=== PATIENT | male | born 1965 | race Caucasian/White ===

== ENCOUNTER → 2020-02-06 08:33 | Outpatient (REF) | payer OTHER, SELFPAY ==
--- NOTE | 2020-02-06 | NM_ITS ---
Lexiscan Myocardial perfusion study Indication: Chest pain, diabetes, hypertension, hyperlipidemia, assess for coronary disease and ischemia Technique: The patient was brought in for a Lexiscan perfusion study on 02/06/2020 and was injected 0.4 mg of Lexiscan intravenously. Within a minute of this injection 35 mCi of sestamibi was given intravenously. Images were obtained using the SPECT gamma camera interlaced with the gating device. Images were obtained in supine position. Resting perfusion study was performed on 02/07/2020. Patient was administered 35 mCi of sestamibi intravenously at rest. Images were then obtained in supine position. Total DLP 84mGy-cm. Images were processed with the software and compared side to side in short axis, horizontal long axis and vertical long axis views. Findings: Raw acquisition was reviewed. The stress perfusion study showed no significant perfusion abnormality. Both uncorrected as well as CT attenuation corrected images were reviewed. The gated study shows normal LV systolic function with calculated LVEF of 72%. LV cavity is normal in size. The gated study shows normal wall thickening and contraction of segments. Resting study shows no significant perfusion abnormality. Gating at rest reveals normal wall motion with ejection fraction at 65%. The findings are consistent with no definite reversible or fixed perfusion abnormality. Impression: 1. Myocardial perfusion imaging study shows normal myocardial perfusion. No evidence of any ischemia or infarction. 2. Gated LVEF is 72% during stress; 52% during rest. 3. Transient ischemic dilatation not present. EKG component of the test reported separately.
--- NOTE | 2020-02-06 08:01 | CA_ITS ---
Acquisition Time: 2020-02-06 08:50:48 Total Exercise Time: 00:02:00 Test Indications: Abnormal Treadmill Test Medications: ASA METOPROLOL OMEPRAZOLE LISINOPRIL ATORVASTATIN INSULIN KLONIPIN LEVOTHYROXINE Protocol: LEXISCAN Max HR: 101 BPM 61% of Pred: 165 BPM Max BP: 142/076 mmHG Max Work Load: 1.0 METS Pharmacological stress test using Lexiscan while sitting and kicking his feet. Tolerated well. Denies any anginal sx. EKG without anyy arrhythmias. Non-diagnostic for ischemia. Nuclear images to follow. Normotensive response to test. Test reviewed with Dr. Duncan Referred By: Mando Turpin Overread By: Jennifer Flores
== END ==
LOC: HO.CARD 08:33
PROVIDERS: PCP Internal Medicine; Visit Provider Internal Medicine
DX: R07.9 Chest pain, unspecified (principal); E11.9 Type 2 diabetes mellitus without complications; I10 Essential (primary) hypertension; E78.5 Hyperlipidemia, unspecified; K21.9 Gastro-esophageal reflux disease without esophagitis; E03.9 Hypothyroidism, unspecified; F41.9 Anxiety disorder, unspecified; E66.9 Obesity, unspecified
CPT/HCPCS: 78452; 93017; A9500; J0280; J2785

== ENCOUNTER → 2020-02-17 13:27 | Outpatient (BNVA) | payer OTHER, SELFPAY | PROVIDERS: PCP Internal Medicine; Referring Provider Internal Medicine; Visit Provider Physician Assistant Medical | DX: Z76.89 Persons encountering health services in other specified circumstances (principal) ==

== ENCOUNTER 2020-03-07 09:53 | Outpatient (REF) | payer OTHER, SELFPAY ==
--- NOTE | 2020-03-07 09:55 | CT_ITS ---
EXAMINATION: CT CHEST SCREENING CLINICAL INFORMATION: Smoking history. 38 pack year history. COMPARISON: Previous chest x-monty most recent January 2019 TECHNIQUE: Multidetector volumetric CT imaging of the chest is performed without contrast using low dose technique. Additional 2D coronal and sagittal reformatted images and axial 3D maximum intensity projection (MIP) images are generated on the CT workstation. This CT examination was performed using dose optimization techniques as appropriate, variously including the following: *Automated exposure control *Adjustment of mA and/or kV according to patient size (this includes techniques or standardized protocols for targeted exams where dose is matched to indication/reason for exam; i.e. extremities or head) *Use of iterative reconstruction technique DLP: 89 mGy-cm FINDINGS: LUNGS: There is a 3 mm right upper lobe nodule axial image 88 series 5. The lungs are otherwise clear. No endobronchial or endotracheal lesion is seen. MEDIASTINUM: The mediastinum is normal. PLEURA: There is no pleural effusion. No pleural mass or thickening. AXILLA: No lymphadenopathy. UPPER ABDOMEN: Unremarkable OSSEOUS STRUCTURES: There are degenerative changes of the spine. CT/CT lung screening IMPRESSION: 3 mm right upper lobe pulmonary nodule. ASSESSMENT: Lung-RADS category 2: Benign RECOMMENDATION: Annual low-dose chest CT follow-up recommended.
== END 2020-03-07 09:54 | disposition home or self-care (01) ==
LOC: HO.CT 09:53
PROVIDERS: Visit Provider Physician Assistant Medical
DX: Z12.2 Encounter for screening for malignant neoplasm of respiratory organs (principal); F17.210 Nicotine dependence, cigarettes, uncomplicated
CPT/HCPCS: 71250

== ENCOUNTER → 2020-03-15 14:56 | Outpatient (BNVA) | payer OTHER, SELFPAY | PROVIDERS: PCP Internal Medicine; Visit Provider Internal Medicine | DX: R06.02 Shortness of breath (principal); R06.00 Dyspnea, unspecified; E66.9 Obesity, unspecified; Z68.36 Body mass index [BMI] 36.0-36.9, adult; F17.210 Nicotine dependence, cigarettes, uncomplicated; F25.9 Schizoaffective disorder, unspecified; I10 Essential (primary) hypertension; E11.9 Type 2 diabetes mellitus without complications; Z79.4 Long term (current) use of insulin; E03.9 Hypothyroidism, unspecified; Z79.899 Other long term (current) drug therapy | CPT/HCPCS: 99202 ==

== ENCOUNTER 2020-03-19 10:09 | Outpatient (REF) | payer OTHER, SELFPAY ==
[2020-03-19 11:10] LABS: MANUAL DIFF FLAG NO
[2020-03-19 11:37] LABS: Basophils Absolute Auto 0.1 X10*3/uL (0.0-0.2); Basophils Percent Auto 0.9 % (0-2); Eosinophils Absolute Auto 0.1 X10*3/uL (0.0-0.4); Eosinophils Percent Auto 1.7 % (0-4); Hematocrit 40.7 % (42-52); Hemoglobin 14.9 g/dl (14.0-18.0); Imm Gran Abs Auto 0.03 X10*3/uL (0.00-0.03); Imm Gran Pct Auto 0.4 % (0.0-0.4); Lymphocytes Absolute Auto 1.8 X10*3/uL (1.2-4.9); Lymphocytes Percent Auto 25.3 % (20-40); Mean Corpuscular HGB Conc 36.6 g/dl (31.0-36.0); Mean Corpuscular Hemoglobin 33.9 pg (27.0-33.0); Mean Corpuscular Volume 92.7 fL (80-98); Mean Platelet Volume 10.7 fL (9.4-12.4); Monocytes Absolute Auto 0.7 X10*3/uL (0.1-1.2); Monocytes Percent Auto 9.6 % (2-11); Neutrophils Absolute Auto 4.3 X10*3/uL (2.0-8.3); Neutrophils Percent Auto 62.1 % (45-73); Platelet Count 134 X10*3/uL (160-400); Red Blood Count 4.39 X10*6/uL (4.60-5.80); Red Cell Distribution Width 12.4 % (11.0-16.0)
[2020-03-19 11:52] LABS: Glucose Urine UA NEG (NEG); Leukocyte Esterase Urine NEG (NEG); Nitrite Urine NEG (NEG); PH 7.5 (5.0-8.0); Urine Blood NEG (NEG); Urine Ketones NEG (NEG); Urine Protein NEG (NEG-TRACE)
[2020-03-19 11:54] LABS: Appearance Urine CLEAR; Color Urine YELLOW; UACC CULT NO
[2020-03-19 11:56] LABS: Alanine Aminotransferase 29 U/L (0-40); Albumin Level 4.3 g/dL (3.5-5.0); Alkaline Phosphatase 82 U/L (39-117); Anion Gap 12 (12-20); Aspartate Amino Transferase 24 U/L (5-37); Bilirubin Total 0.9 mg/dL (0.0-1.0); Blood Urea Nitrogen 9 mg/dL (9-16); Calcium 9.4 mg/dL (8.4-10.2); Carbon Dioxide 28 mmol/L (22-29); Chloride 97 mmol/L (96-108); Cholesterol 112 mg/dL; Estimated Glomerular Filt Rate > 60; Glucose Fasting 136 mg/dL (60-99); HDL Cholesterol 42 mg/dL; LDL Cholesterol Calculated 57 mg/dl; Sodium 132 mmol/L (135-145); Total Protein 6.7 g/dL (6.5-8.0); Triglycerides 66 mg/dL
[2020-03-19 12:06] LABS: Free T4 (Free Thyroxine) 1.09 ng/dL (0.71-1.85); Thyroid Stimulating Hormone 0.84 uIU/mL (0.32-4.0)
[2020-03-19 12:27] LABS: RBC Urine 0 /HPF (0); WBC Urine 0 /HPF (0-4)
[2020-03-19 12:42] LABS: Creatinine Urine 30.85 mg/dL; Microalbum/Creatinine Ratio Ur 22.6 ug/mg cr
== END 2020-03-19 10:10 | disposition home or self-care (01) ==
LOC: HO.LAB 10:09
PROVIDERS: Visit Provider Internal Medicine
DX: E11.9 Type 2 diabetes mellitus without complications (principal); I10 Essential (primary) hypertension; E78.5 Hyperlipidemia, unspecified; E03.9 Hypothyroidism, unspecified; E66.9 Obesity, unspecified; K59.00 Constipation, unspecified; K21.9 Gastro-esophageal reflux disease without esophagitis
CPT/HCPCS: 36415; 80053; 80061; 81001; 82043; 84439; 84443; 85025

== ENCOUNTER 2020-04-05 10:09 | Outpatient (REF) | payer OTHER, SELFPAY ==
--- NOTE | 2020-04-05 17:37 | PFT_ITS ---
INDICATION: Dyspnea. SPIROMETRY: The FEV1 to FVC of 88% with an FEV1 of 3.55 L which is 94% predicted, an FVC of 4.04 L, which is 82% predicted. No significant response to bronchodilators noted. Maximum voluntary ventilation 68% predicted. LUNG VOLUMES: Total lung capacity 81% predicted with an expiratory reserve volume of 31% predicted. DIFFUSION CAPACITY: DLCO 77% predicted. Flow volume loop appears to have some plateauing of the inspiratory phase. COMPARISONS: None. INTERPRETATION: No obstructive nor restrictive ventilatory defects identified. No significant response to bronchodilators noted. There is some mild decrease in maximum voluntary ventilation, which could be due to deconditioning. Lung volumes do demonstrate a low normal total lung capacity in addition to a significantly decreased expiratory reserve volume likely from an elevated BMI. The patient also has mild diffusion impairment, it does correct to normal when correcting for the alveolar volume. When we look at the flow volume loop, appears to have some plateauing of the inspiratory flow with some saw-tooth suggesting of increased although vocal cord dysfunction and/or a dynamic extrathoracic obstruction cannot be ruled out. Clinical correlation warranted. MD TAMIKO Malhotra/MODLouis / [id number]
== END 2020-04-05 10:10 | disposition home or self-care (01) ==
LOC: HO.RESP 10:09
PROVIDERS: PCP Internal Medicine; Visit Provider Internal Medicine
DX: R06.00 Dyspnea, unspecified (principal); F17.210 Nicotine dependence, cigarettes, uncomplicated
CPT/HCPCS: 94060; 94727; 94729

== ENCOUNTER 2020-04-13 11:08 | Outpatient (REF) | payer OTHER, SELFPAY ==
[2020-04-13 11:49] LABS: Glucose Urine UA NEG (NEG); Leukocyte Esterase Urine NEG (NEG); Nitrite Urine NEG (NEG); Specific Gravity - Urine <= 1.005 (1.005-1.025); Urine Blood NEG (NEG); Urine Ketones NEG (NEG); Urine Protein NEG (NEG-TRACE)
[2020-04-13 11:52] LABS: Appearance Urine CLEAR; Color Urine STRAW
[2020-04-13 12:24] LABS: Syphilis Screen Nonreactive (Nonreactive)
[2020-04-13 12:29] LABS: HBS Num1 0.41 mIU/mL (0-7.99); ~HepC Num1 0.04 S/CO (0.00-0.79); ~Hepatitis B Surface Antibody NONREACTIVE (Nonreactive); ~Hepatitis C Antibody Nonreactive (Nonreactive)
[2020-04-13 12:38] LABS: HBc Num1 0.02 S/CO (0.00-0.79); HBsAGNum1 0.43 S/CO (0.00-0.99); HIV AB/AG Nonreactive (Nonreactive); HIV Num 1 0.08 S/CO (0.00-0.99); Hepatitis B Core Antibody Nonreactive (Nonreactive); Hepatitis B Surface Antigen Negative (Negative)
[2020-04-17 18:21] LABS: Chlamydia Pneumoniae IgA <1:16 titer (<1:16); Chlamydia Pneumoniae IgG <1:64 titer (<1:64); Chlamydia Pneumoniae IgM <1:10 titer (<1:10); Chlamydia Psittaci IgA <1:16 titer (<1:16); Chlamydia Psittaci IgG <1:64 titer (<1:64); Chlamydia Psittaci IgM <1:10 titer (<1:10); Chlamydia Trachomatis IgA <1:16 titer (<1:16); Chlamydia Trachomatis IgG <1:64 titer (<1:64); Chlamydia Trachomatis IgM <1:10 titer (<1:10)
== END 2020-04-13 11:09 | disposition home or self-care (01) ==
LOC: HO.LAB 11:08
PROVIDERS: PCP Internal Medicine; Visit Provider Physician Assistant
DX: Z11.3 Encounter for screening for infections with a predominantly sexual mode of transmission (principal)
CPT/HCPCS: 81003; 86631; 86632; 86704; 86706; 86780; 86803; 87340; 87389

== ENCOUNTER → 2020-04-16 11:54 | Outpatient (BNVA) | payer OTHER, SELFPAY | PROVIDERS: PCP Internal Medicine; Visit Provider Internal Medicine | DX: R06.00 Dyspnea, unspecified (principal); R91.1 Solitary pulmonary nodule; G47.33 Obstructive sleep apnea (adult) (pediatric); E66.9 Obesity, unspecified; Z68.34 Body mass index [BMI] 34.0-34.9, adult; F17.200 Nicotine dependence, unspecified, uncomplicated; Z71.3 Dietary counseling and surveillance; Z71.6 Tobacco abuse counseling | CPT/HCPCS: 99212 ==

== ENCOUNTER 2020-06-26 09:44 | Outpatient (REF) | payer OTHER, SELFPAY ==
[2020-06-26 10:47] LABS: Glucose Urine UA NEG (NEG); Imm Gran Abs Auto 0.03 X10*3/uL (0.00-0.03); Imm Gran Pct Auto 0.5 % (0.0-0.4); Leukocyte Esterase Urine NEG (NEG); Nitrite Urine NEG (NEG); Urine Blood NEG (NEG); Urine Ketones NEG (NEG); Urine Protein NEG (NEG-TRACE)
[2020-06-26 10:49] LABS: Basophils Absolute Auto 0.1 X10*3/uL (0.0-0.2); Eosinophils Absolute Auto 0.1 X10*3/uL (0.0-0.4); Hematocrit 40.5 % (42-52); Hemoglobin 14.6 g/dl (14.0-18.0); Lymphocytes Absolute Auto 1.7 X10*3/uL (1.2-4.9); Lymphocytes Percent Auto 27.2 % (20-40); Mean Corpuscular Hemoglobin 33.9 pg (27.0-33.0); Mean Platelet Volume 10.2 fL (9.4-12.4); Monocytes Absolute Auto 0.7 X10*3/uL (0.1-1.2); Monocytes Percent Auto 11.7 % (2-11); Neutrophils Absolute Auto 3.6 X10*3/uL (2.0-8.3); Neutrophils Percent Auto 57.6 % (45-73); Red Blood Count 4.31 X10*6/uL (4.60-5.80); Red Cell Distribution Width 12.6 % (11.0-16.0); White Blood Count 6.2 X10*3/uL (4.8-10.8)
[2020-06-26 10:50] LABS: Appearance Urine HAZY; Color Urine YELLOW
[2020-06-26 10:55] LABS: Estimated Average Glucose 128 mg/dL; Hemoglobin A1c % 6.1 %
[2020-06-26 10:58] LABS: MANUAL DIFF FLAG NO; Platelet Count 139 X10*3/uL (160-400)
[2020-06-26 11:13] LABS: Alanine Aminotransferase 25 U/L (0-40); Albumin Level 4.4 g/dL (3.5-5.0); Alkaline Phosphatase 82 U/L (39-117); Anion Gap 13 (12-20); Aspartate Amino Transferase 22 U/L (5-37); Bilirubin Total 0.9 mg/dL (0.0-1.0); Blood Urea Nitrogen 11 mg/dL (9-16); Calcium 9.8 mg/dL (8.4-10.2); Carbon Dioxide 28 mmol/L (22-29); Chloride 104 mmol/L (96-108); Cholesterol 119 mg/dL; Estimated Glomerular Filt Rate > 60; Glucose Fasting 86 mg/dL (60-99); HDL Cholesterol 39 mg/dL; LDL Cholesterol Calculated 62 mg/dl; Potassium 4.6 mmol/L (3.3-5.1); Sodium 140 mmol/L (135-145); Total Protein 7.1 g/dL (6.5-8.0); Triglycerides 91 mg/dL
[2020-06-26 11:25] LABS: Free T4 (Free Thyroxine) 1.14 ng/dL (0.71-1.85); Thyroid Stimulating Hormone 1.25 uIU/mL (0.32-4.0)
[2020-06-26 11:53] LABS: Creatinine Urine 188.49 mg/dL; Microalbum/Creatinine Ratio Ur 30.7 ug/mg cr
== END 2020-06-26 09:45 | disposition home or self-care (01) ==
LOC: HO.LAB 09:44
PROVIDERS: PCP Internal Medicine; Visit Provider Internal Medicine
DX: I10 Essential (primary) hypertension (principal); K21.9 Gastro-esophageal reflux disease without esophagitis; F17.200 Nicotine dependence, unspecified, uncomplicated; E03.9 Hypothyroidism, unspecified; E11.9 Type 2 diabetes mellitus without complications; E78.00 Pure hypercholesterolemia, unspecified; E66.9 Obesity, unspecified
CPT/HCPCS: 36415; 80053; 80061; 81003; 82043; 83036; 84439; 84443; 85025

== ENCOUNTER → 2020-08-08 11:16 | Outpatient (BNVA) | payer OTHER, SELFPAY | PROVIDERS: PCP Internal Medicine; Visit Provider Nurse Practitioner | DX: Z01.818 Encounter for other preprocedural examination (principal); R06.00 Dyspnea, unspecified; F25.9 Schizoaffective disorder, unspecified; G47.33 Obstructive sleep apnea (adult) (pediatric); E66.01 Morbid (severe) obesity due to excess calories; F17.200 Nicotine dependence, unspecified, uncomplicated; Z83.71 Family history of colonic polyps; Z71.3 Dietary counseling and surveillance; Z71.6 Tobacco abuse counseling | CPT/HCPCS: Q3014 ==

== ENCOUNTER 2020-09-17 10:40 | Outpatient (REF) | payer OTHER, SELFPAY ==
[2020-09-17 12:05] LABS: MANUAL DIFF FLAG NO
[2020-09-17 12:08] LABS: Basophils Absolute Auto 0.1 X10*3/uL (0.0-0.2); Basophils Percent Auto 0.6 % (0-2); Eosinophils Absolute Auto 0.1 X10*3/uL (0.0-0.4); Eosinophils Percent Auto 1.5 % (0-4); Hematocrit 39.8 % (42-52); Hemoglobin 14.5 g/dl (14.0-18.0); Imm Gran Abs Auto 0.03 X10*3/uL (0.00-0.03); Imm Gran Pct Auto 0.4 % (0.0-0.4); Lymphocytes Absolute Auto 1.5 X10*3/uL (1.2-4.9); Lymphocytes Percent Auto 17.8 % (20-40); Mean Corpuscular HGB Conc 36.4 g/dl (31.0-36.0); Mean Corpuscular Hemoglobin 33.7 pg (27.0-33.0); Mean Corpuscular Volume 92.6 fL (80-98); Mean Platelet Volume 10.1 fL (9.4-12.4); Monocytes Absolute Auto 0.9 X10*3/uL (0.1-1.2); Monocytes Percent Auto 10.4 % (2-11); Neutrophils Absolute Auto 5.8 X10*3/uL (2.0-8.3); Neutrophils Percent Auto 69.3 % (45-73); Platelet Count 128 X10*3/uL (160-400); Red Cell Distribution Width 12.7 % (11.0-16.0); White Blood Count 8.4 X10*3/uL (4.8-10.8)
[2020-09-17 12:33] LABS: Alanine Aminotransferase 30 U/L (0-40); Albumin Level 4.2 g/dL (3.5-5.0); Alkaline Phosphatase 92 U/L (39-117); Anion Gap 11 (12-20); Aspartate Amino Transferase 25 U/L (5-37); Bilirubin Total 0.9 mg/dL (0.0-1.0); Blood Urea Nitrogen 10 mg/dL (9-16); Calcium 9.1 mg/dL (8.4-10.2); Carbon Dioxide 27 mmol/L (22-29); Chloride 101 mmol/L (96-108); Cholesterol 104 mg/dL; Estimated Glomerular Filt Rate > 60; Glucose Fasting 98 mg/dL (60-99); HDL Cholesterol 33 mg/dL; LDL Cholesterol Calculated 56 mg/dl; Potassium 4.9 mmol/L (3.3-5.1); Sodium 134 mmol/L (135-145); Total Protein 6.7 g/dL (6.5-8.0); Triglycerides 76 mg/dL
[2020-09-17 12:44] LABS: Glucose Urine UA NEG (NEG); Leukocyte Esterase Urine NEG (NEG); Nitrite Urine NEG (NEG); Specific Gravity - Urine 1.025 (1.005-1.025); Urine Blood NEG (NEG); Urine Ketones NEG (NEG); Urine Protein NEG (NEG-TRACE)
[2020-09-17 12:46] LABS: Appearance Urine CLEAR; Color Urine YELLOW
[2020-09-17 12:53] LABS: Creatinine Urine 207.81 mg/dL; Microalbum/Creatinine Ratio Ur 16.8 ug/mg cr
[2020-09-17 12:56] LABS: Estimated Average Glucose 114 mg/dL; Hemoglobin A1c % 5.6 %
[2020-09-17 12:58] LABS: Free T4 (Free Thyroxine) 1.01 ng/dL (0.71-1.85); Thyroid Stimulating Hormone 0.59 uIU/mL (0.32-4.0)
== END 2020-09-17 10:41 | disposition home or self-care (01) ==
LOC: HO.LAB 10:40
PROVIDERS: PCP Internal Medicine; Visit Provider Internal Medicine
DX: I10 Essential (primary) hypertension (principal); K21.9 Gastro-esophageal reflux disease without esophagitis; K59.00 Constipation, unspecified; E78.00 Pure hypercholesterolemia, unspecified; E11.9 Type 2 diabetes mellitus without complications; Z79.4 Long term (current) use of insulin; E03.9 Hypothyroidism, unspecified; E66.9 Obesity, unspecified; F17.200 Nicotine dependence, unspecified, uncomplicated
CPT/HCPCS: 36415; 80053; 80061; 81003; 82043; 83036; 84439; 84443; 85025

== ENCOUNTER 2020-10-12 07:46 | Day surgery (SDC) | payer OTHER, SELFPAY ==
[2020-10-08 13:39] VITALS: BMI 35.7
--- NOTE | 2020-10-10 13:51 | P.CONAN_ITS ---
Documented by User: Merlyn Rao 10/10/20 13:56 HPI - Anesthesia Eval Consult details Narrative: 55yo M for Colonoscopy PMFSH Active Problems Active Problems: All Active Problems (Updated 10/08/20 @ 13:37 by Monique Chinchilla) Screening for STD (sexually transmitted disease) (Acute) Colon cancer screening (Acute) Family history of polyps in the colon (Acute) Morbid obesity (Acute) Lung nodule (Acute) Smoker (Acute) Schizophrenia (Acute) Nocturnal enuresis (Acute) Anxiety (Acute) Midline low back pain (Acute) Acquired hypothyroidism (Acute) GERD without esophagitis (Acute) Constipation (Acute) Pure hypercholesterolemia (Acute) Benign essential hypertension (Acute) Diabetes mellitus (Acute) Obstructive sleep apnea (Acute) Dyspnea (Acute) Schizoaffective disorder (Acute) Insulin dependent diabetes mellitus (Acute) Hypothyroidism (Acute) Hypertension, essential (Acute) Hyperlipidemia (Acute) Nicotine dependence, cigarettes, uncomplicated (Acute) Past Medical History Medical History Acquired hypothyroidism Anxiety Benign essential hypertension Constipation Diabetes mellitus Dyspnea GERD without esophagitis Hyperlipidemia Hypertension, essential Hypothyroidism Insulin dependent diabetes mellitus Lung nodule Midline low back pain Nicotine dependence, cigarettes, uncomplicated Nocturnal enuresis Obesity (BMI 30-39.9) Obesity (BMI 35.0-39.9 without comorbidity) Obstructive sleep apnea On beta evaristo at home Pure hypercholesterolemia Schizoaffective disorder Schizophrenia Screening for STD (sexually transmitted disease) Smoker Family History Family History Father CVD (cardiovascular disease) Mother CVD (cardiovascular disease) Diabetes Sister Colon polyps Surgical History Surgical History History of left inguinal hernia repair Hx of facial fracture repair Social History Social History Alcohol intake: never Patient Tobacco Use Status: Current everyday Tobacco user Tobacco use type: Cigarette Cigarette Packs Per Day: 1 Cigarettes Per Day: 20.0 Years Smoked: 38 Smoked in Last 30 Days: Yes Second Hand Smoke Exposure: Yes Advance Directives: No Advance Directives Information Provided: Yes Recently lost weight without trying: No Eating poorly because of decreased appetite: No Nutrition Risks: No Nutritional Risk Meds Allergies Allergy/AdvReac Type Severity Reaction Status Date / Time clozapine [From Clozaril] Allergy Mild ringing in Verified 10/08/20 13:16 ears, pain, leukopenia trifluoperazine Allergy Tongue Verified 10/08/20 13:17 [From Stelazine] Swelling Home Medications Medication Instructions Recorded Confirmed Last Taken Type acetaminophen 500 mg tablet 500 mg PO Q6H PRN 03/15/20 10/08/20 Unknown History alcohol swabs 1 pad TOPICAL DAILY 03/15/20 09/21/20 Unknown History aspirin 81 mg chewable tablet 1 tab PO DAILY 03/15/20 10/08/20 Unknown History atorvastatin 10 mg tablet 10 mg PO DAILY 03/15/20 10/08/20 Unknown History blood sugar diagnostic #10 ea 03/15/20 09/21/20 Unknown History cholecalciferol (vitamin D3) 25 25 mcg PO DAILY 03/15/20 10/08/20 Unknown History mcg (1,000 unit) capsule clonazepam 0.5 mg tablet 0.5 mg PO BID PRN 03/15/20 10/12/20 10/12/20 07:00 History lactulose 10 gram/15 mL oral 3 ml PO DIRECTED 03/15/20 10/08/20 Unknown History solution lancets 28 gauge #100 ea 03/15/20 09/21/20 Unknown History lisinopril 5 mg tablet 5 mg PO DAILY 03/15/20 10/08/20 Unknown History metoprolol tartrate 50 mg tablet 50 mg PO BID 03/15/20 10/08/20 10/12/20 07:00 History omeprazole 20 mg capsule,delayed 20 mg PO DAILY 03/15/20 10/08/20 Unknown History release pen needle, diabetic 31 gauge x #1200 ea 03/15/20 09/21/20 Unknown History /16 perphenazine 2 mg tablet 2 mg PO BID 03/15/20 10/08/20 10/12/20 07:00 History perphenazine 8 mg tablet 8 mg PO BID tab 03/21/20 10/08/20 Unknown History chlorhexidine gluconate 0.12 % 15 ml PO BID ml 06/22/20 10/08/20 Unknown History mouthwash insulin glargine 100 unit/mL (3 55 unit SUBCUT ml 08/08/20 09/21/20 Unknown History mL) subcutaneous pen trazodone 50 mg tablet 75 mg PO Q OTHER DAY PRN tab 08/08/20 10/08/20 Unknown History insulin aspart U-100 [Novolog unit SUBCUT TIDWMEAL 10/08/20 Unknown History Flexpen U-100 Insulin] semaglutide [Ozempic] 0.5 mg SUBCUT QWEEK 10/08/20 10/08/20 Unknown History Exam Exam Date and Time: October 10, 2020 1351 Height,Weight and Vital Signs: Height 5 ft 9 in Weight 109.769 kg Narrative Narrative: Nuc Stress 02/2020 Impression: 1. Myocardial perfusion imaging study shows normal myocardial perfusion. No evidence of any ischemia or infarction. 2. Gated LVEF is 72% during stress; 52% during rest. 3. Transient ischemic dilatation not present. EKG component nondiagnostic for ischemia Assessment and Plan Assessment Anesthesia Assessment: Chart Reviewed Documented by User: Dalton Cummings 10/12/20 08:28 [facility] Past Medical History Medical History Acquired hypothyroidism Anxiety Benign essential hypertension Constipation Diabetes mellitus Dyspnea GERD without esophagitis Hyperlipidemia Hypertension, essential Hypothyroidism Insulin dependent diabetes mellitus Lung nodule Midline low back pain Nicotine dependence, cigarettes, uncomplicated Nocturnal enuresis Obesity (BMI 30-39.9) Obesity (BMI 35.0-39.9 without comorbidity) Obstructive sleep apnea On beta evaristo at home Pure hypercholesterolemia Schizoaffective disorder Schizophrenia Screening for STD (sexually transmitted disease) Smoker Family History Family History Father CVD (cardiovascular disease) Mother CVD (cardiovascular disease) Diabetes Sister Colon polyps Surgical History Surgical History History of left inguinal hernia repair Hx of facial fracture repair Social History Social History Alcohol intake: never Patient Tobacco Use Status: Current everyday Tobacco user Tobacco use type: Cigarette Cigarette Packs Per Day: 1 Cigarettes Per Day: 20.0 Years Smoked: 38 Smoked in Last 30 Days: Yes Second Hand Smoke Exposure: Yes Advance Directives: No Advance Directives Information Provided: Yes Recently lost weight without trying: No Eating poorly because of decreased appetite: No Nutrition Risks: No Nutritional Risk Meds Allergies Allergy/AdvReac Type Severity Reaction Status Date / Time clozapine [From Clozaril] Allergy Mild ringing in Verified 10/08/20 13:16 ears, pain, leukopenia trifluoperazine Allergy Tongue Verified 10/08/20 13:17 [From Stelazine] Swelling Home Medications Medication Instructions Recorded Confirmed Last Taken Type acetaminophen 500 mg tablet 500 mg PO Q6H PRN 03/15/20 10/08/20 Unknown History alcohol swabs 1 pad TOPICAL DAILY 03/15/20 09/21/20 Unknown History aspirin 81 mg chewable tablet 1 tab PO DAILY 03/15/20 10/08/20 Unknown History atorvastatin 10 mg tablet 10 mg PO DAILY 03/15/20 10/08/20 Unknown History blood sugar diagnostic #10 ea 03/15/20 09/21/20 Unknown History cholecalciferol (vitamin D3) 25 25 mcg PO DAILY 03/15/20 10/08/20 Unknown Histo ry mcg (1,000 unit) capsule clonazepam 0.5 mg tablet 0.5 mg PO BID PRN 03/15/20 10/12/20 10/12/20 07:00 History lactulose 10 gram/15 mL oral 3 ml PO DIRECTED 03/15/20 10/08/20 Unknown His tory solution lancets 28 gauge #100 ea 03/15/20 09/21/20 Unknown History lisinopril 5 mg tablet 5 mg PO DAILY 03/15/20 10/08/20 Unknown History metoprolol tartrate 50 mg tablet 50 mg PO BID 03/15/20 10/08/20 10/12/20 07:00 History omeprazole 20 mg capsule,delayed 20 mg PO DAILY 03/15/20 10/08/20 Unknown History release pen needle, diabetic 31 gauge x #1200 ea 03/15/20 09/21/20 Unknown History 5/16 perphenazine 2 mg tablet 2 mg PO BID 03/15/20 10/08/20 10/12/20 07:00 History perphenazine 8 mg tablet 8 mg PO BID tab 03/21/20 10/08/20 Unknown History chlorhexidine gluconate 0.12 % 15 ml PO BID ml 06/22/20 10/08/20 Unknown History mouthwash insulin glargine 100 unit/mL (3 55 unit SUBCUT ml 08/08/20 09/21/20 Unknown History mL) subcutaneous pen trazodone 50 mg tablet 75 mg PO Q OTHER DAY PRN tab 08/08/20 10/08/20 Unknown History insulin aspart U-100 [Novolog unit SUBCUT TIDWMEAL 10/08/20 Unknown History Flexpen U-100 Insulin] semaglutide [Ozempic] 0.5 mg SUBCUT QWEEK 10/08/20 10/08/20 Unknown History Exam Airway Mallampati Class: III TM Dist: >3cm Neck ROM: Full Heart: [id number] Lungs: cta b/l Assessment and Plan Assessment Anesthesia Assessment: Anesthesia Plan Discussed, PAT Visit and Chart Reviewed Final Anesthetic Review NPO: Yes ASA Class: III Final Preanesthetic Review: No Changes in Pt Med Stat, Meds/Allgs Chart Revie thu, Consent Obtained/Reviewed and Anes Risks/Benef Reviewed Patient Risk: Intermediate Procedure Risk: Low Assessment/Block/Sedation in SS: Assess/Block/Sedation-SS Anesthetic Plan Anesthetic Plan: MAC: and Agree w/ Assess. and Plan Disposition: Standard PACU
[2020-10-12 08:07] VITALS: BP 119/75; PULSE 77; RESP 16; TEMP 36.4; O2SAT 98
--- NOTE | 2020-10-12 08:09 | P.OP_ITS ---
Operative Note Operative Note Date of Service: 10/12/20 Narrative: Pre-op diagnosis: Colon cancer screening Post-op diagnosis: other (colon polyps, diverticulosis) Procedure: COLONOSCOPY TILL CECUM WITH SNARE POLYPECTOMY Consent: Indications for the procedure and potential complications of bleeding, perforation, reaction to medications and missed diagnosis were discussed with the patient and informed consent was obtained. Instrument: Olympus PCF H 190 L variable stiffness pediatric colonoscope Monitoring: Vital signs and clinical assessment, intermittent blood pressure monitoring, continuous EKG monitoring, Pulse oximetry and Carbon Dioxide monitoring were done throughout the procedure. Colon withdrawl time was 17 minutes. Procedure: The patient was placed in the left lateral decubitis position and pre-procedure medications were administered. After a digital rectal examination of the ano-rectum, the video colonoscope was inserted into the rectum and advanced through the colon to the cecum. The colonoscope was slowly withdrawn in a retrograde panoramic fashion and the colon mucosa was carefully examined including a retroflexed view of the rectum. Findings and interventions are described below. Procedure Difficulty: Without difficulty Findings: Terminal Ileum: Not evaluated Cecum: Mild diffuse melanosis coli throughout the colon - random biopsies were obtained Ascending Colon: Mild diffuse melanosis coli throughout the colon - random biopsies were obtained Transverse Colon: Mild diffuse melanosis coli throughout the colon - random biopsies were obtained Descending Colon: Mild diffuse melanosis coli throughout the colon - random biopsies were obtained Sigmoid Colon: A 15 mm sessile polyp removed with a hot snare. A 7-8 mm sessile polyp removed with a cold snare. Moderate diverticulosis Rectum: Normal Ano-rectum: Normal Colon preparation: Excellent Impression and Post Procedure Diagnosis: Colonoscopy Findings: Two small to medium sized polyps removed. Mild diffuse melanosis coli throughout the colon - random biopsies were obtained Moderate diverticulosis seen in the sigmoid colon Plan: Await pathology results Patient has an appointment on 10/25/20 in the [facility] with Manasa Baker NP. Repeat Colonoscopy interval based on path results - in 3 years if polyps are adenomatous and 10 years if polyps are hyperplastic. Above findings were reviewed with the patient and colon polyps and diverticulosis handouts were given in the discharge area Surgeon: Waldemar Kincaid MD Anesthesia: MAC (Dr Cummings) Was an Welding Machine Setter used for this Procedure?: No Estimated blood loss (mL): 0 Pathology: other (A. RANDOM COLON BX'S R/O MELANOSIS COLI B. SIGMOID COLON POLYPS) Condition: stable Disposition: PACU
--- NOTE | 2020-10-12 08:09 | MHC.SHP ---
Pre-Procedural Eval Section A The patient is an INPATIENT: No The History & Physical has been completed within 30 days and I have reviewed it.: No Section B Chief Complaint: screening Details of Present Illness: Colon cancer screening Relevant Family History (Specify if Yes): Yes Relevant Social History: Tobacco Use Present Medications: see Short Stay Collaborative assessment Medical History: Significant History (Acquired hypothyroidism Anxiety Benign essential hypertension Constipation Diabetes mellitus Dyspnea GERD without esophagitis Hyperlipidemia Hypertension, essential Hypothyroidism Insulin dependent diabetes mellitus Lung nodule Midline low back pain Nicotine dependence, cigarettes, uncomplicated Noc) History of Previous Operations: Relevant previous surgery/procedure and date(s) (Inguinal hernia repair) Allergies: Allergies Allergy/AdvReac Type Severity Reaction Status Date / Time clozapine [From Clozaril] Allergy Mild ringing in Verified 10/08/20 13:16 ears, pain, leukopenia trifluoperazine Allergy Tongue Verified 10/08/20 13:17 [From Stelazine] Swelling Review of Systems Sugical H&P ROS: Negative: Constitution, Cardiovascular, Respiratory and Gastrointestinal Exam Surgical H&P Exam: Normal: Heart, Normal: Lungs, Normal: Extremities and Normal: Abdomen Plan Diagnosis/Plan: Unchanged I have reviewed the history and physical and performed a pertinent physical examination on my patient. No changes have occurred unless specified.
[2020-10-12] MEDS: Lactated Ringers 1,000 ML 100 ML IVCONT (08:13)
[2020-10-12 08:16] LABS: Glucose, Whole Blood 121 mg/dL (60-115)
[2020-10-12 09:12] VITALS: BP 100/66; PULSE 76; RESP 16; TEMP 36.6; O2SAT 98
[2020-10-12 09:27] VITALS: BP 106/70; PULSE 82; RESP 20; O2SAT 97
== END 2020-10-12 10:22 | disposition home or self-care (01) ==
PROVIDERS: PCP Internal Medicine; Visit Provider Internal Medicine Gastroenterology
PROC: 0DJD8ZZ Inspection of Lower Intestinal Tract, Via Natural or Artificial Opening Endoscopic (ICD-10-PCS; CPT 45378; principal; 2020-10-12 08:30)
DX: Z12.11 Encounter for screening for malignant neoplasm of colon (principal); D12.5 Benign neoplasm of sigmoid colon; K63.89 Other specified diseases of intestine; K57.30 Diverticulosis of large intestine without perforation or abscess without bleeding; K59.00 Constipation, unspecified; K21.9 Gastro-esophageal reflux disease without esophagitis; I10 Essential (primary) hypertension; E11.9 Type 2 diabetes mellitus without complications; Z79.4 Long term (current) use of insulin; R91.1 Solitary pulmonary nodule; F25.9 Schizoaffective disorder, unspecified; G47.33 Obstructive sleep apnea (adult) (pediatric); F17.210 Nicotine dependence, cigarettes, uncomplicated; Z79.899 Other long term (current) drug therapy; Z88.8 Allergy status to other drugs, medicaments and biological substances
CPT/HCPCS: 45385; 82947; 88305

== ENCOUNTER → 2020-10-25 13:22 | Outpatient (BNVA) | payer OTHER, SELFPAY | PROVIDERS: PCP Internal Medicine; Visit Provider Nurse Practitioner | DX: D12.6 Benign neoplasm of colon, unspecified (principal); R06.00 Dyspnea, unspecified; G47.33 Obstructive sleep apnea (adult) (pediatric); F25.9 Schizoaffective disorder, unspecified; F17.210 Nicotine dependence, cigarettes, uncomplicated; Z83.71 Family history of colonic polyps | CPT/HCPCS: 99212 ==

== ENCOUNTER 2021-03-08 14:15 | Emergency (ER) | payer OTHER, SELFPAY ==
--- NOTE | ~2021-03-08 | CT_ITS ---
EXAMINATION: CT ABDOMEN AND PELVIS WITH CONTRAST CLINICAL INFORMATION: Lower quadrant abdominal pain. COMPARISON: None TECHNIQUE: Multidetector volumetric images were obtained from the superior aspect of the liver through the pubic symphysis following administration 85 mL of Omnipaque 350 intravenous contrast. Sagittal and coronal reformatted images were obtained on the technologist's workstation. Oral contrast: No This CT examination was performed using dose optimization techniques as appropriate, variously including the following: *Automated exposure control *Adjustment of mA and/or kV according to patient size (this includes techniques or standardized protocols for targeted exams where dose is matched to indication/reason for exam; i.e. extremities or head) *Use of iterative reconstruction technique DLP: 758 mGy-cm FINDINGS: LUNG BASES: The visualized lung bases are unremarkable. LIVER, GALLBLADDER, AND BILIARY TREE: The liver is normal in size, shape, and attenuation. No focal hepatic lesion or biliary ductal dilatation is present. The gallbladder is unremarkable with no evidence of radiopaque gallstones, gallbladder wall thickening, or obvious pericholecystic inflammatory changes. PANCREAS: Unremarkable. SPLEEN: Unremarkable. ADRENAL GLANDS: Unremarkable. KIDNEYS AND URETERS: The kidneys are normal in size, shape, and attenuation. No hydronephrosis, hydroureter, or calculi seen. No perinephric stranding. There is an exophytic lesion at the upper pole of the right kidney which measures 1.6 cm with likely soft tissue attenuation, with concern for possible enhancement. BLADDER: Unremarkable. GASTROINTESTINAL TRACT: The stomach is unremarkable. Normal caliber small bowel. No obstruction. Normal appendix. Scattered colonic diverticulosis without diverticulitis. No wall thickening or inflammation. No free air or free fluid. ABDOMINAL WALL: No significant hernia is appreciated. LYMPH NODES: Normal. VASCULAR: Normal caliber aorta with mild atherosclerotic calcification. PELVIC VISCERA: The prostate and seminal vesicles are unremarkable. OSSEOUS STRUCTURES: No acute or suspicious osseous abnormality. Degenerative changes noted throughout the spine. Degenerative changes in both hips. CT/CT abdomen pelvis w con IMPRESSION: 1. No acute findings in the abdomen or pelvis. Normal appendix. 2. Exophytic upper pole lesion of the right kidney, concerning for a solid lesion. Recommend further evaluation with renal protocol MRI.
[2021-03-08 14:35] VITALS: BP 123/71; PULSE 56
[2021-03-08 14:36] VITALS: BP 124/87; PULSE 96; RESP 16; TEMP 37.8; O2SAT 93; BMI 40.8
--- NOTE | 2021-03-08 14:41 | PC.NURSE ---
[facility] CALLED FOR REDRAW
[2021-03-08 15:26] LABS: Hemoglobin 14.1 g/dl (14.0-18.0); Imm Gran Abs Auto 0.02 X10*3/uL (0.00-0.03); Imm Gran Pct Auto 0.3 % (0.0-0.4); Mean Corpuscular Volume 93.2 fL (80.0-98.0); Mean Platelet Volume 9.9 fL (9.4-12.4); PLT CLUMP 1; Red Cell Distribution Width 12.9 % (11.0-16.0); SCAN SMEAR FLAG 1
--- NOTE | 2021-03-08 15:27 | ED_ITS ---
HPI - Abdominal Pain General Chief Complaint: Abdominal Pain Stated Complaint: flank pain Time Seen by Provider: 03/08/21 14:31 Source: patient and EMS Mode of arrival: EMS History of Present Illness HPI narrative: 55-year-old male with past medical history of hypothyroid, anxiety, constipation, diabetes, GERD, obesity, JUANITA, schizophrenia, schizoaffective, hyperlipidemia, presenting to the ED complaining of right lower quadrant abdominal pain since last night with associated nausea. Reports pain is constant radiating to ribs. Also reports chronic constipation and urinary hesitancy. Denies vomiting, diarrhea, fever, chills, hematuria, dysuria MD elicited complaint: abdominal pain Related Data Home Medications Medication Instructions Recorded Confirmed alcohol swabs 1 pad TOPICAL DAILY 03/15/20 02/27/21 blood sugar diagnostic #10 ea 03/15/20 02/27/21 lancets 28 gauge #100 ea 03/15/20 02/27/21 pen needle, diabetic 31 gauge x #1200 ea 03/15/20 02/27/21/16 perphenazine 2 mg tablet 2 mg PO BID 03/15/20 02/27/21 chlorhexidine gluconate 0.12 % 15 ml PO BID ml 06/22/20 02/27/21 mouthwash clonazepam 0.5 mg tablet 0.5 mg PO BID 10/25/20 02/27/21 insulin glargine 100 unit/mL (3 48 unit SUBCUT ml 10/25/20 02/27/21 mL) subcutaneous pen perphenazine 4 mg tablet 4 mg PO BID 10/25/20 02/27/21 perphenazine 8 mg tablet 8 mg PO TID tab 10/25/20 02/27/21 semaglutide (Ozempic) 0.5 mg SUBCUT QWEEK 10/25/20 02/27/21 trazodone 50 mg tablet 100 mg PO Q OTHER DAY PRN tab 10/25/20 02/27/21 Previous Rx's Medication Instructions Recorded multivitamin 1 tab PO DAILY #30 tab 08/15/20 bismuth subsalicylate 262 mg 2 tab PO .COMPLEX #240 tab 09/04/20 chewable tablet (Pepto-Bismol) levothyroxine 50 mcg tablet 50 mcg PO QAM #30 tab 10/29/20 metoprolol tartrate 50 mg tablet 50 mg PO BID #180 tab 11/24/20 cholecalciferol (vitamin D3) 25 25 mcg PO DAILY #90 cap 12/11/20 mcg (1,000 unit) capsule famotidine 20 mg tablet 40 mg PO BID #120 tab 12/11/20 magnesium oxide 400 mg (241.3 mg 400 mg PO DAILY #30 tab 12/11/20 magnesium) tablet omeprazole 20 mg capsule,delayed 20 mg PO DAILY #90 cap 12/11/20 release desmopressin 0.1 mg tablet 0.2 mg PO BEDTIME 30 Days #60 tab 02/12/21 aspirin 81 mg chewable tablet 1 tab PO QAM #30 tab 02/20/21 atorvastatin 10 mg tablet 10 mg PO DAILY #90 tab 02/27/21 ibuprofen 600 mg tablet 600 mg PO TID PRN #90 tab 02/27/21 sulfamethoxazole 800 1 tab PO BID 10 Days #20 tab 02/27/21 mg-trimethoprim 160 mg tablet (Bactrim DS) lisinopril 5 mg tablet 5 mg PO DAILY #90 tab 03/04/21 sennosides 8.6 mg tablet (senna) 17.2 mg PO DAILY #180 tab 03/04/21 Allergies Allergy/AdvReac Type Severity Reaction Status Date / Time clozapine [From Clozaril] Allergy Mild ringing in Verified 02/27/21 11:23 ears, pain, leukopenia trifluoperazine Allergy Tongue Verified 02/27/21 11:23 [From Stelazine] Swelling Review of Systems Review of Systems Constitutional: No Fever, No Chills, No Fatigue, No Malaise ENT/Mouth: No Ear Pain, No sore throat, No Rhinorrhea, No Swallowing Difficulty Eyes: No Eye Pain, No Swelling, No Redness Cardiovascular: No Chest Pain, No SOB, No Palpitations Respiratory: No Cough, No Dyspnea Gastrointestinal: + Nausea, No Vomiting, No Diarrhea, No Constipation, +Abdominal pain Genitourinary: No Dysuria, No Urinary Frequency, No Hematuria, No Urgency, No F lank Pain Musculoskeletal: No joint pain, No Myalgias, No Joint Swelling Skin: No Skin Lesions, No rash Neuro: No Weakness, No Numbness, No Headache Yes all other systems are reviewed and are negative Physical Exam Vital Signs: Vital Signs: Last Vital Signs Temp 100.1 F 03/08/21 14:36 Pulse 96 03/08/21 14:36 Resp 16 03/08/21 14:36 BP 124/87 03/08/21 14:36 Pulse Ox 93 03/08/21 14:36 Body Mass Index 40.8 Const: General: cooperative and healthy appearing Orientation/ consciousness: patient oriented x3 Limitations: no limitations HENMT: Head: Yes normal to inspection Ears: hearing grossly normal bilaterally General nose exam: Normal external nose present Face and sinus: Yes normal facial exam Eyes: General: appearance normal, both eyes and all related structures EOM: EOMs intact bilaterally Neck: Neck: Yes normal visual inspection and Yes no meningeal signs Resp: Effort & Inspection: normal respiratory effort and no respiratory distress Cardio: Rate: regular rate GI: Inspection: Yes normal to inspection Palpation (GI): Soft to palpation, Tenderness to palpation present (GI) in the RLQ, no guarding and not rigid : General: Yes no CVA tenderness Back/Spine/Pelvis: Back: no CVA tenderness Skin: Rashes: no rashes Wounds: no wounds Neuro: General: patient oriented x3 and no meningeal signs Gait exam (Neuro): Normal gait present Extrem: General: Yes normal to inspection Course Course Course Narrative: -1645--no leukocytosis. H&H stable. Labs otherwise unremarkable CT abdomen pelvis w con IMPRESSION:? 1. No acute findings in the abdomen or pelvis. Normal appendix. 2. Exophytic upper pole lesion of the right kidney, concerning for a solid lesion. Recommend further evaluation with renal protocol MRI.? >> results discussed with patient including Worrisome signs and symptoms and strict return precautions And needed follow-up with PCP for further testing, he verbalized understanding feel safe for discharge home at this time -UA negative MDM - Abdominal Pain MDM Narrative Medical decision making narrative: 55-year-old male with past medical history of hypothyroid, anxiety, constipation, diabetes, GERD, obesity, JUANITA, schizophrenia, schizoaffective, hyperlipidemia, presenting to the ED complaining of right lower quadrant abdominal pain since last night with associated nausea. On exam vital signs stable, NAD, nontoxic, abdomen soft and RLQ TTP, no rebound or guarding, no CVAT. Concern for appendicitis vs ? Renal stone vs diverticulitis. Rule out UTI. Low concern for pyelo. Plan: Labs, UA, CT AP, IVF, symptomatic treatment, re-evaluate Medical Records Attestation: I reviewed the patient's medical records. Lab Data Attestation: I reviewed the patient's lab results. Result diagrams: 03/08/21 15:09 03/08/21 15:09 Labs: Lab Results 03/08/21 03/08/21 03/08/21 Range/Units 15: 15:09 17:32 WBC 6.2 (4.8-10.8) X10*3/uL RBC 4.11 L (4.60-5.80) X10*6/uL Hgb 14.1 (14.0-18.0) g/dl Hct 38.3 L (42.0-52.0) % MCV 93.2 (80.0-98.0) fL MCH 34.3 H (27.0-33.0) pg MCHC 36.8 H (31.0-36.0) g/dl RDW 12.9 (11.0-16.0) % Plt Count 115 L (160-400) X10*3/uL MPV 9.9 (9.4-12.4) fL Immature Gran % (Auto) 0.3 (0.0-0.4) % Neut % (Auto) 66.9 (45-73) % Lymph % (Auto) 18.6 L (20-40) % [place] % (Auto) 12.8 H (2-11) % Eos % (Auto) 0.8 (0-4) % Baso % (Auto) 0.6 (0-2) % Lymph # (Auto) 1.2 (1.2-4.9) X10*3/uL [place] # (Auto) 0.8 (0.1-1.2) X10*3/uL Eos # (Auto) 0.1 (0.0-0.4) X10*3/uL Baso # (Auto) 0.0 (0.0-0.2) X10*3/uL Abs Immat Gran (auto) 0.02 (0.00-0.03) X10*3/uL Absolute Neuts (auto) 4.1 (2.0-8.3) x10*3/uL Absolute Nucleated RBC 0.000 (0.0-0.012) X10*3/uL Nucleated RBC % (auto) 0.0 (0.0-0.2) /100WBC Sodium 136 (135-145) mmol/L Potassium 5.0 (3.3-5.1) mmol/L Chloride 104 (96-108) mmol/L Carbon Dioxide 24 (22-29) mmol/L Anion Gap 13 (12-20) BUN 15 (9-16) mg/dL Creatinine 1.01 (0.5-1.4) mg/dL Estim Creat Clear Calc 110.3 Estimated GFR > 60 Random Glucose 184 H (60-115) mg/dL Calcium 10.1 D (8.4-10.2) mg/dL Magnesium 1.6 (1.6-2.6) mg/dL Total Bilirubin 0.7 (0.0-1.0) mg/dL Direct Bilirubin 0.3 (0.0-0.5) mg/dL AST 22 (5-37) U/L ALT 35 (0-40) U/L Alkaline Phosphatase 112 D (39-117) U/L Total Protein 6.9 (6.5-8.0) g/dL Albumin 4.4 (3.5-5.0) g/dL Lipase 50 (8-78) U/L Urine Color YELLOW Urine Appearance CLEAR Urine pH 5.5 (5.0-8.0) Ur Specific [place] 1.020 (1.005-1.025) Urine Protein NEG (NEG-TRACE) MG/DL Urine Glucose (UA) 100 H (NEG) MG/DL Urine Ketones NEG (NEG) MG/DL Urine Blood NEG (NEG) Urine Nitrite NEG (NEG) Ur Leukocyte Esterase NEG (NEG) Discharge Plan Discharge Clinical Impression: Lesion of right [place] kidney Abdominal pain Qualifiers: Abdominal location: right lower quadrant Qualified Code(s): R10.31 - Right lower quadrant pain Patient Disposition: Home, Self-Care Instructions: Abdominal Pain (ED) Additional Instructions: Your blood work is reassuring today Your CT scan does not have any acute findings, does show lesion on your right kidney, it is recommended that you follow-up with her primary care doctor and have an MRI for further evaluation Patient hydrated at home If your symptoms persist or worsen, pain becomes unbearable, constant worsening nausea/vomiting, develops fever bleed return to the ED Prescriptions: No Action multivitamin Tablet 1 tab PO DAILY Qty: 30 RF: 12 bismuth subsalicylate [Pepto-Bismol] 262 mg tablet,chewable 2 tab PO .COMPLEX Qty: 240 RF: 0 levothyroxine 50 mcg tablet 50 mcg PO QAM Qty: 30 RF: 3 metoprolol tartrate 50 mg tablet 50 mg PO BID Qty: 180 RF: 0 cholecalciferol (vitamin D3) 25 mcg (1,000 unit) capsule 25 mcg PO DAILY Qty: 90 RF: 3 famotidine 20 mg tablet 40 mg PO BID Qty: 120 RF: 2 magnesium oxide 400 mg (241.3 mg magnesium) tablet 400 mg PO DAILY Qty: 30 RF: 3 omeprazole 20 mg capsule,delayed release(DR/EC) 20 mg PO DAILY Qty: 90 RF: 3 desmopressin 0.1 mg tablet 0.2 mg PO BEDTIME 30 Days Qty: 60 RF: 6 aspirin 81 mg tablet,chewable 1 tab PO QAM Qty: 30 RF: 0 atorvastatin 10 mg tablet 10 mg PO DAILY Qty: 90 RF: 0 ibuprofen 600 mg tablet 600 mg PO TID PRN (Reason: for pain) Qty: 90 RF: 0 lisinopril 5 mg tablet 5 mg PO DAILY Qty: 90 RF: 0 sennosides [senna] 8.6 mg tablet 17.2 mg PO DAILY Qty: 180 RF: 0 chlorhexidine gluconate 0.12 % mouthwash 15 ml PO BID RF: 0 sulfamethoxazole-trimethoprim [Bactrim DS] 800-160 mg tablet 1 tab PO BID 10 Days Qty: 20 RF: 0 perphenazine 2 mg tablet 2 mg PO BID RF: 0 (DME) pen needle, diabetic 31 gauge x 5/16 needle See Rx Instructions ea .ROUTE .MEDSUPPLY Qty: 1200 RF: 0 (DME) blood sugar diagnostic Strip See Rx Instructions ea Not Applicable .MEDSUPPLY Qty: 10 RF: 0 alcohol swabs Pads, Medicated 1 pad topical DAILY RF: 0 (DME) lancets 28 gauge misc See Rx Instructions ea topical .MEDSUPPLY Qty: 100 RF: 0 insulin glargine 100 unit/mL (3 mL) insulin pen 48 unit subcut RF: 0 clonazepam 0.5 mg tablet 0.5 mg PO BID RF: 0 perphenazine 8 mg tablet 8 mg PO TID RF: 0 trazodone 50 mg tablet 100 mg PO Q OTHER DAY PRN (Reason: Sleep) RF: 0 Ozempic 0.25 mg or 0.5 mg(2 mg/1.5 mL) pen injector 0.5 mg subcut QWEEK RF: 0 perphenazine 4 mg tablet 4 mg PO BID RF: 0 Referrals: Mando Turpin MD [Primary Care Provider] - 2 days PMF Past Medical History Attestation statement: The following information was validated with the patient. Medical History Acquired hypothyroidism Anxiety Axillary abscess Benign essential hypertension Constipation Diabetes mellitus Dyspnea GERD without esophagitis Hyperlipidemia Hypertension, essential Hypothyroidism Insulin dependent diabetes mellitus Lung nodule Midline low back pain Nicotine dependence, cigarettes, uncomplicated Nocturnal enuresis Obesity (BMI 30-39.9) Obesity (BMI 30-39.9) Obesity (BMI 35.0-39.9 without comorbidity) Obstructive sleep apnea On beta evaristo at home Pure hypercholesterolemia Schizoaffective disorder Schizophrenia Screening for STD (sexually transmitted disease) Smoker Surgical History H/O colonoscopy History of left inguinal hernia repair Hx of facial fracture repair Family History Family History Father CVD (cardiovascular disease) Mother CVD (cardiovascular disease) Diabetes Sister Colon polyps Social History Social History Housing: Assisted Living Facility Housing Other:: senior living Alcohol intake: never Patient Tobacco Use Status: Current everyday Tobacco user Tobacco use type: Cigar Cigarettes Per Day: 4 Years Smoked: 38 Second Hand Smoke Exposure: Yes Advance Directives: No Advance Directives Information Provided: No service: No Current occupational status: disabled
[2021-03-08 15:28] LABS: Basophils Percent Auto 0.6 % (0-2); Eosinophils Absolute Auto 0.1 X10*3/uL (0.0-0.4); Eosinophils Percent Auto 0.8 % (0-4); Hematocrit 38.3 % (42.0-52.0); Lymphocytes Absolute Auto 1.2 X10*3/uL (1.2-4.9); Lymphocytes Percent Auto 18.6 % (20-40); Mean Corpuscular HGB Conc 36.8 g/dl (31.0-36.0); Mean Corpuscular Hemoglobin 34.3 pg (27.0-33.0); Monocytes Absolute Auto 0.8 X10*3/uL (0.1-1.2); Monocytes Percent Auto 12.8 % (2-11); Neutrophils Absolute Auto 4.1 x10*3/uL (2.0-8.3); Neutrophils Percent Auto 66.9 % (45-73); Platelet Count 115 X10*3/uL (160-400); Red Blood Count 4.11 X10*6/uL (4.60-5.80); White Blood Count 6.2 X10*3/uL (4.8-10.8)
[2021-03-08 15:29] LABS: MANUAL DIFF FLAG NO
[2021-03-08 15:41] LABS: Alanine Aminotransferase 35 U/L (0-40); Albumin Level 4.4 g/dL (3.5-5.0); Alkaline Phosphatase 112 U/L (39-117); Anion Gap 13 (12-20); Aspartate Amino Transferase 22 U/L (5-37); Bilirubin Direct 0.3 mg/dL (0.0-0.5); Bilirubin Total 0.7 mg/dL (0.0-1.0); Blood Urea Nitrogen 15 mg/dL (9-16); Calcium 10.1 mg/dL (8.4-10.2); Carbon Dioxide 24 mmol/L (22-29); Chloride 104 mmol/L (96-108); Creatinine Clr Calc Pharmacy 110.3; Estimated Glomerular Filt Rate > 60; Glucose Random 184 mg/dL (60-115); Lipase 50 U/L (8-78); Magnesium 1.6 mg/dL (1.6-2.6); Sodium 136 mmol/L (135-145); Total Protein 6.9 g/dL (6.5-8.0)
[2021-03-08] MEDS: ondansetron HCL 4 MG/2 ML VIAL IVPUSH (15:43)
[2021-03-08] MEDS: 0.9 % Sodium Chloride 1,000 ML 999 ML IVCONT (15:43)
[2021-03-08] MEDS: Ketorolac Tromethamine 15 MG/ML VIAL IVPUSH (15:43)
[2021-03-08] MEDS: iohexoL 350 MG/ML 100 ML INFUS..BTL IV (16:06)
[2021-03-08] MEDS: diphenhydrAMINE HCL 50 MG/ML VIAL 25 MG IVPUSH (16:39)
[2021-03-08] MEDS: Acetaminophen 325 MG TABLET 650 MG PO (17:29)
[2021-03-08 17:38] LABS: Appearance Urine CLEAR; Color Urine YELLOW; Glucose Urine UA 100 MG/DL (NEG); Leukocyte Esterase Urine NEG (NEG); Nitrite Urine NEG (NEG); PH 5.5 (5.0-8.0); Urine Blood NEG (NEG); Urine Ketones NEG (NEG); Urine Protein NEG (NEG-TRACE)
[2021-03-08 18:51] VITALS: BP 116/74; PULSE 91; RESP 18; TEMP 37.5; O2SAT 97
== END 2021-03-08 19:21 | disposition home or self-care (01) ==
PROVIDERS: Physician Assistant; Emergency Provider Emergency Medicine; PCP Internal Medicine
DX: R10.31 Right lower quadrant pain (principal); R93.41 Abnormal radiologic findings on diagnostic imaging of renal pelvis, ureter, or bladder; N28.9 Disorder of kidney and ureter, unspecified; I10 Essential (primary) hypertension; E11.9 Type 2 diabetes mellitus without complications; E78.5 Hyperlipidemia, unspecified; Z79.4 Long term (current) use of insulin
CPT/HCPCS: 36415; 74177; 80048; 80076; 81003; 83690; 83735; 85025; 96361; 96374; 96375; 99284; J1200; J1885; J2405; Q9967

== ENCOUNTER 2021-04-02 17:15 | Outpatient (REF) | payer OTHER, SELFPAY ==
--- NOTE | ~2021-04-02 | MR_ITS ---
EXAMINATION: MR ABDOMEN WITHOUT AND WITH CONTRAST CLINICAL INFORMATION: History of abdominal pain and exophytic right upper pole renal lesion detected on CT imaging. COMPARISON: Abdomen CT from 03/08/2021. TECHNIQUE: MR abdomen was performed without and with use of 10 mL intravenous Gadavist. Postcontrast images are performed in multiphase dynamic sequences. FINDINGS: LUNG BASES: Normal. No pulmonary consolidation or pleural effusion at either lung base. LIVER: Liver has normal size and contour. There is mild reduction of liver parenchymal signal on [id number] compared to in-phase images, consistent with mild steatosis. No liver mass. GALLBLADDER AND BILIARY TREE: Gallbladder has normal wall thickness. No evidence of cholelithiasis or pericholecystic fluid. No dilated bile ducts. PANCREAS: Normal. No edema, pancreatic ductal dilatation or mass. SPLEEN: Normal. ADRENAL GLANDS: Normal. KIDNEYS: Kidneys are normal in size. 1.7 cm mass within cortex of the posterior right upper pole is heterogeneous, but predominantly intermediate in signal on T2-weighted images. The mass is hypoenhancing on the arterial phase postcontrast images. It enhances moderately and heterogeneously on the venous phase images. This is consistent with a solid neoplasm. No evidence of macroscopic fat or hemorrhage within the lesion. 0.9 cm simple cortical cyst in the posterolateral interpolar region of the left kidney. Renal imaging follow-up is not recommended for simple cysts. The visualized proximal ureters are unremarkable. No hydroureteronephrosis. BOWEL AND PERITONEUM: Stomach is unremarkable. No dilated loops of bowel. No bowel wall thickening or mesenteric fat stranding. There are diverticula of the visualized descending colon without evidence of diverticulitis. No ascites. VASCULATURE: Abdominal aorta is normal in caliber and its branches are widely patent. Inferior vena cava and renal veins are normal. LYMPH NODES: No pathologic sized lymph nodes in the abdomen. SKELETAL: No suspicious bone lesions. MR/MR abdomen wo/w con IMPRESSION: * There is a solid, 1.7 cm contrast enhancing mass at the upper pole of the right kidney, consistent with renal cell carcinoma. No abdominal lymphadenopathy. * Mild hepatic steatosis.
== END 2021-04-02 17:16 | disposition home or self-care (01) ==
LOC: HO.MRI 17:15
PROVIDERS: PCP Internal Medicine; Visit Provider Internal Medicine
DX: N28.89 Other specified disorders of kidney and ureter (principal)
CPT/HCPCS: 74183; A9585

== ENCOUNTER → 2021-04-18 09:33 | Outpatient (BNVA) | payer OTHER, SELFPAY | PROVIDERS: PCP Internal Medicine; Visit Provider Urology | DX: C64.1 Malignant neoplasm of right kidney, except renal pelvis (principal) | CPT/HCPCS: 99202 ==

== ENCOUNTER 2021-05-22 20:20 | Emergency (ER) | payer OTHER, SELFPAY ==
--- NOTE | 2021-05-22 | ECG_ITS ---
Test Reason : CHEST PAIN Blood Pressure : / mmHG Vent. Rate : 084 BPM Atrial Rate : 084 BPM P-R Int : 268 ms QRS Dur : 078 ms QT Int : 364 ms P-R-T Axes : 054 029 040 degrees QTc Int : 430 ms Sinus rhythm with 1st degree A-V block Otherwise normal ECG When compared with ECG of 29-JAN-2019 14:09, No significant change was found Referred By: Shawn Joe Electronically Signed By:Fredo Lares
--- NOTE | ~2021-05-22 | XR_ITS ---
EXAMINATION: PORTABLE CHEST 1 VIEW CLINICAL INFORMATION: cp . COMPARISON: 01/21/2019. TECHNIQUE: Portable frontal view of the chest was obtained. FINDINGS: The lungs are mildly hypoexpanded. No focal infiltrate, effusion, edema, or pneumothorax. Cardiac and mediastinal silhouettes are within normal limits for technique. No acute bony abnormality seen. XR/XR chest 1V IMPRESSION: No evidence of acute disease.
[2021-05-22 20:31] VITALS: BP 111/69; PULSE 84; RESP 18; TEMP 36.9; O2SAT 96; BMI 31.5
--- NOTE | 2021-05-22 20:36 | ED_ITS ---
HPI - Chest Pain General Chief Complaint: Chest Pain Stated Complaint: chest pain 3xdays Time Seen by Provider: 05/22/21 20:36 Source: patient Mode of arrival: EMS Limitations: no limitations History of Present Illness HPI narrative: Patient's history of renal cell carcinoma, hypertension, diabetes , bipolar disorder, schizophrenia no known coronary disease noticed pain in the left side of the chest for last 3 days of unknown no significant increased on exertion no shortness of breath no cough pain is localized to left precordial area no syncope Related Data Home Medications Medication Instructions Recorded Confirmed alcohol swabs 1 pad TOPICAL DAILY 03/15/20 04/10/21 blood sugar diagnostic #10 ea 03/15/20 04/10/21 lancets 28 gauge #100 ea 03/15/20 04/10/21 perphenazine 2 mg tablet 2 mg PO BID 03/15/20 04/10/21 chlorhexidine gluconate 0.12 % 15 ml PO BID ml 06/22/20 04/10/21 mouthwash clonazepam 0.5 mg tablet 0.5 mg PO BID 10/25/20 04/10/21 insulin glargine 100 unit/mL (3 48 unit SUBCUT ml 10/25/20 04/10/21 mL) subcutaneous pen perphenazine 4 mg tablet 4 mg PO BID 10/25/20 04/10/21 perphenazine 8 mg tablet 8 mg PO TID tab 10/25/20 04/10/21 semaglutide (Ozempic) 0.5 mg SUBCUT QWEEK 10/25/20 04/10/21 trazodone 50 mg tablet 100 mg PO Q OTHER DAY PRN tab 10/25/20 04/10/21 Previous Rx's Medication Instructions Recorded multivitamin 1 tab PO DAILY #30 tab 08/15/20 bismuth subsalicylate 262 mg 2 tab PO .COMPLEX #240 tab 09/04/20 chewable tablet (Pepto-Bismol) cholecalciferol (vitamin D3) 25 25 mcg PO DAILY #90 cap 12/11/20 mcg (1,000 unit) capsule omeprazole 20 mg capsule,delayed 20 mg PO DAILY #90 cap 12/11/20 release desmopressin 0.1 mg tablet 0.2 mg PO BEDTIME 30 Days #60 tab 02/12/21 aspirin 81 mg chewable tablet 1 tab PO QAM #30 tab 02/20/21 atorvastatin 10 mg tablet 10 mg PO DAILY #90 tab 02/27/21 lisinopril 5 mg tablet 5 mg PO DAILY #90 tab 03/04/21 sennosides 8.6 mg tablet (senna) 17.2 mg PO DAILY #180 tab 03/04/21 levothyroxine 50 mcg tablet 50 mcg PO QAM #30 tab 03/12/21 metoprolol tartrate 50 mg tablet 50 mg PO BID #180 tab 03/12/21 pen needle, diabetic 31 gauge x #1200 ea 03/12/2109/16 dextromethorphan 5 mg-guaifenesin 20 ml PO Q4-6H PRN #237 ml 04/05/21 50 mg/5 mL oral liquid (Robitussin Cough-Chest Congestion DM) famotidine 20 mg tablet 40 mg PO BID #120 tab 04/15/21 magnesium oxide 400 mg (241.3 mg 400 mg PO DAILY #30 tab 04/15/21 magnesium) tablet ibuprofen 600 mg tablet 600 mg PO TID PRN #90 tab 04/25/21 lactulose 10 gram/15 mL oral 15 ml PO BEDTIME PRN #237 ml 05/15/21 solution Allergies Allergy/AdvReac Type Severity Reaction Status Date / Time clozapine [From Clozaril] Allergy Mild ringing in Verified 04/18/21 09:54 ears, pain, leukopenia trifluoperazine Allergy Tongue Verified 04/18/21 09:54 [From Stelazine] Swelling Review of Systems Review of Systems: Yes all other systems are reviewed and are negative PMFSH Past Medical History Medical History Acquired hypothyroidism Anxiety Axillary abscess Benign essential hypertension Constipation Diabetes mellitus Dyspnea GERD without esophagitis Hyperlipidemia Hypertension, essential Hypothyroidism Insulin dependent diabetes mellitus Lung nodule Midline low back pain Nicotine dependence, cigarettes, uncomplicated Nocturnal enuresis Obesity (BMI 30-39.9) Obesity (BMI 30-39.9) Obesity (BMI 35.0-39.9 without comorbidity) Obstructive sleep apnea On beta evaristo at home Pure hypercholesterolemia Schizoaffective disorder Schizophrenia Screening for STD (sexually transmitted disease) Smoker Surgical History H/O colonoscopy History of left inguinal hernia repair Hx of facial fracture repair Family History Family History Father CVD (cardiovascular disease) Mother CVD (cardiovascular disease) Diabetes Sister Colon polyps Social History Social History Housing: Assisted Living Facility Housing Other:: retirement Alcohol intake: never Patient Tobacco Use Status: Current everyday Tobacco user Tobacco use type: Cigar Cigarettes Per Day: 6 Years Smoked: 38 Second Hand Smoke Exposure: Yes Advance Directives: No Advance Directives Information Provided: Yes service: No Current occupational status: disabled Physical Exam Vital Signs: Vital Signs: Last Vital Signs Temp 97.8 F 05/22/21 21:45 Pulse 79 05/22/21 21:45 Resp 18 05/22/21 21:45 BP 95/57 L 05/22/21 21:45 Pulse Ox 96 05/22/21 21:45 BMI result Body Mass Index 31.5 Appearance: Alert. Oriented X3. No acute distress. Eyes: No pallor or icterus ENT: Pharynx normal. Oral Mucosa moist Neck: Normal inspection. Neck supple. CVS: Normal heart rate and rhythm. Pulses normal. Respiratory: No respiratory distress. Equal air entry bilateral, no wheezing/rales/rhonchi Abdomen: Soft and nontender. Bowel sounds are present, no mass palpable, no CVA tenderness Skin: Skin warm and dry. Normal skin color. Normal skin turgor. Extremities: No lower extremity edema. No calf tenderness Neuro: Oriented X 3. No motor deficit. No sensory deficit.No cerebellar signs , cranial nerves II-XII intact MDM - Chest Pain MDM Narrative Medical decision making narrative: Patient' with atypical pain EKG without any acute ischemic changes high sensitive troponin negative discharge patient home Lab Data Attestation: I reviewed the patient's lab results. Result diagrams: 05/22/21 20:44 05/22/21 20:44 Labs: Lab Results 05/22/21 05/22/21 05/22/21 Range/Units 20:44 20:44 20:44 WBC 6.9 (4.8-10.8) X10*3/uL RBC 4.03 L (4.60-5.80) X10*6/uL Hgb 13.7 L (14.0-18.0) g/dl Hct 37.7 L (42.0-52.0) % MCV 93.5 (80.0-98.0) fL MCH 34.0 H (27.0-33.0) pg MCHC 36.3 H (31.0-36.0) g/dl RDW 12.6 (11.0-16.0) % Plt Count 108 L (160-400) X10*3/uL MPV 9.7 (9.4-12.4) fL Immature Gran % (Auto) 0.3 (0.0-0.4) % Neut % (Auto) 53.0 (45-73) % Lymph % (Auto) 34.7 (20-40) % Vigo % (Auto) 9.9 (2-11) % Eos % (Auto) 1.5 (0-4) % Baso % (Auto) 0.6 (0-2) % Lymph # (Auto) 2.4 (1.2-4.9) X10*3/uL Vigo # (Auto) 0.7 (0.1-1.2) X10*3/uL Eos # (Auto) 0.1 (0.0-0.4) X10*3/uL Baso # (Auto) 0.0 (0.0-0.2) X10*3/uL Abs Immat Gran (auto) 0.02 (0.00-0.03) X10*3/uL Absolute Neuts (auto) 3.7 (2.0-8.3) x10*3/uL Absolute Nucleated RBC 0.000 (0.0-0.012) X10*3/uL Nucleated RBC % (auto) 0.0 (0.0-0.2) /100WBC Sodium 139 (135-145) mmol/L Potassium 4.2 (3.3-5.1) mmol/L Chloride 108 (96-108) mmol/L Carbon Dioxide 22 (22-29) mmol/L Anion Gap 13 (12-20) BUN 21 H (9-16) mg/dL Creatinine 1.06 (0.5-1.4) mg/dL Estim Creat Clear Calc 92.1 Estimated GFR > 60 Random Glucose 202 H (60-115) mg/dL Calcium 9.2 D (8.4-10.2) mg/dL Troponin I High Sens < 3.5 (<3.5-35.0) ng/L COVID-19 ([facility]) (Negative) COVID-19 Clin Com 05/22/21 Range/Units 20:44 WBC (4.8-10.8) X10*3/uL RBC (4.60-5.80) X10*6/uL Hgb (14.0-18.0) g/dl Hct (42.0-52.0) % MCV (80.0-98.0) fL MCH (27.0-33.0) pg MCHC (31.0-36.0) g/dl RDW (11.0-16.0) % Plt Count (160-400) X10*3/uL MPV (9.4-12.4) fL Immature Gran % (Auto) (0.0-0.4) % Neut % (Auto) (45-73) % Lymph % (Auto) (20-40) % Vigo % (Auto) (2-11) % Eos % (Auto) (0-4) % Baso % (Auto) (0-2) % Lymph # (Auto) (1.2-4.9) X10*3/uL Vigo # (Auto) (0.1-1.2) X10*3/uL Eos # (Auto) (0.0-0.4) X10*3/uL Baso # (Auto) (0.0-0.2) X10*3/uL Abs Immat Gran (auto) (0.00-0.03) X10*3/uL Absolute Neuts (auto) (2.0-8.3) x10*3/uL Absolute Nucleated RBC (0.0-0.012) X10*3/uL Nucleated RBC % (auto) (0.0-0.2) /100WBC Sodium (135-145) mmol/L Potassium (3.3-5.1) mmol/L Chloride (96-108) mmol/L Carbon Dioxide (22-29) mmol/L Anion Gap (12-20) BUN (9-16) mg/dL Creatinine (0.5-1.4) mg/dL Estim Creat Clear Calc Estimated GFR Random Glucose (60-115) mg/dL Calcium (8.4-10.2) mg/dL Troponin I High Sens (<3.5-35.0) ng/L COVID-19 ([facility]) Negative (Negative) COVID-19 Clin Com See Note ECG Data ECG #1: Attestation: I personally reviewed and interpreted this ECG as follows: Interpretation: sinus rhythm first-degree heart block, Normal axis no acute ST T wave changes no acute ischemia no acute change from the previous EKG Discharge Plan Discharge Clinical Impression: Chest pain Qualifiers: Chest pain type: precordial pain Qualified Code(s): R07.2 - Precordial pain Patient Disposition: Home, Self-Care Instructions: Chest Pain (ED) Additional Instructions: Rest at home Follow-up with PCP for evaluation Prescriptions: No Action multivitamin Tablet 1 tab PO DAILY Qty: 30 RF: 12 bismuth subsalicylate [Pepto-Bismol] 262 mg tablet,chewable 2 tab PO .COMPLEX Qty: 240 RF: 0 cholecalciferol (vitamin D3) 25 mcg (1,000 unit) capsule 25 mcg PO DAILY Qty: 90 RF: 3 omeprazole 20 mg capsule,delayed release(DR/EC) 20 mg PO DAILY Qty: 90 RF: 3 desmopressin 0.1 mg tablet 0.2 mg PO BEDTIME 30 Days Qty: 60 RF: 6 aspirin 81 mg tablet,chewable 1 tab PO QAM Qty: 30 RF: 0 atorvastatin 10 mg tablet 10 mg PO DAILY Qty: 90 RF: 0 lisinopril 5 mg tablet 5 mg PO DAILY Qty: 90 RF: 0 sennosides [senna] 8.6 mg tablet 17.2 mg PO DAILY Qty: 180 RF: 0 levothyroxine 50 mcg tablet 50 mcg PO QAM Qty: 30 RF: 3 metoprolol tartrate 50 mg tablet 50 mg PO BID Qty: 180 RF: 0 (DME) pen needle, diabetic 31 gauge x 5/16 needle See Rx Instructions ea .ROUTE .MEDSUPPLY Qty: 1200 RF: 0 Robitussin Cough-Chest Alexandre DM 5-50 mg/5 mL liquid 20 ml PO Q4-6H PRN (Reason: cough) Qty: 237 RF: 0 magnesium oxide 400 mg (241.3 mg magnesium) tablet 400 mg PO DAILY Qty: 30 RF: 3 famotidine 20 mg tablet 40 mg PO BID Qty: 120 RF: 2 ibuprofen 600 mg tablet 600 mg PO TID PRN (Reason: for pain) Qty: 90 RF: 0 lactulose 10 gram/15 mL solution 15 ml PO BEDTIME PRN (Reason: constipation) Qty: 237 RF: 2 chlorhexidine gluconate 0.12 % mouthwash 15 ml PO BID RF: 0 perphenazine 2 mg tablet 2 mg PO BID RF: 0 (DME) blood sugar diagnostic Strip See Rx Instructions ea Not Applicable .MEDSUPPLY Qty: 10 RF: 0 alcohol swabs Pads, Medicated 1 pad topical DAILY RF: 0 (DME) lancets 28 gauge misc See Rx Instructions ea topical .MEDSUPPLY Qty: 100 RF: 0 insulin glargine 100 unit/mL (3 mL) insulin pen 48 unit subcut RF: 0 clonazepam 0.5 mg tablet 0.5 mg PO BID RF: 0 perphenazine 8 mg tablet 8 mg PO TID RF: 0 trazodone 50 mg tablet 100 mg PO Q OTHER DAY PRN (Reason: Sleep) RF: 0 Ozempic 0.25 mg or 0.5 mg(2 mg/1.5 mL) pen injector 0.5 mg subcut QWEEK RF: 0 perphenazine 4 mg tablet 4 mg PO BID RF: 0
--- NOTE | 2021-05-22 20:39 | PC.NURSE ---
Per EMS administered 324 ASA and 1 SL nitro with complete relief from pain. Pt from [facility]
[2021-05-22 20:50] LABS: MANUAL DIFF FLAG NO
[2021-05-22 20:52] LABS: Basophils Percent Auto 0.6 % (0-2); Eosinophils Absolute Auto 0.1 X10*3/uL (0.0-0.4); Eosinophils Percent Auto 1.5 % (0-4); Hematocrit 37.7 % (42.0-52.0); Hemoglobin 13.7 g/dl (14.0-18.0); Imm Gran Abs Auto 0.02 X10*3/uL (0.00-0.03); Imm Gran Pct Auto 0.3 % (0.0-0.4); Lymphocytes Absolute Auto 2.4 X10*3/uL (1.2-4.9); Lymphocytes Percent Auto 34.7 % (20-40); Mean Corpuscular HGB Conc 36.3 g/dl (31.0-36.0); Mean Corpuscular Volume 93.5 fL (80.0-98.0); Mean Platelet Volume 9.7 fL (9.4-12.4); Monocytes Absolute Auto 0.7 X10*3/uL (0.1-1.2); Monocytes Percent Auto 9.9 % (2-11); Neutrophils Absolute Auto 3.7 x10*3/uL (2.0-8.3); Platelet Count 108 X10*3/uL (160-400); Red Blood Count 4.03 X10*6/uL (4.60-5.80); Red Cell Distribution Width 12.6 % (11.0-16.0); White Blood Count 6.9 X10*3/uL (4.8-10.8)
[2021-05-22 21:09] LABS: COVID-19 Test Negative (Negative)
[2021-05-22 21:15] LABS: Anion Gap 13 (12-20); Blood Urea Nitrogen 21 mg/dL (9-16); Calcium 9.2 mg/dL (8.4-10.2); Carbon Dioxide 22 mmol/L (22-29); Chloride 108 mmol/L (96-108); Creatinine Clr Calc Pharmacy 92.1; Estimated Glomerular Filt Rate > 60; Glucose Random 202 mg/dL (60-115); Potassium 4.2 mmol/L (3.3-5.1); Sodium 139 mmol/L (135-145)
[2021-05-22 21:23] LABS: Troponin-I High Sensitivity < 3.5 ng/L (<3.5-35.0)
[2021-05-22 21:45] VITALS: BP 95/57; PULSE 79; RESP 18; TEMP 36.6; O2SAT 96
--- NOTE | 2021-05-22 22:19 | ECG_ITS ---
Test Reason : CHEST PAIN Blood Pressure : / mmHG Vent. Rate : 079 BPM Atrial Rate : 079 BPM P-R Int : 282 ms QRS Dur : 088 ms QT Int : 374 ms P-R-T Axes : 052 033 041 degrees QTc Int : 428 ms Sinus rhythm with 1st degree A-V block Otherwise normal ECG When compared with ECG of 22-MAY-2021 20:28, No significant change was found Referred By: Shawn Joe Electronically Signed By:Fredo Lares
[2021-05-22] MEDS: traMADoL HCL 50 MG TABLET PO (22:50)
== END 2021-05-23 01:01 | disposition home or self-care (01) ==
PROVIDERS: Emergency Provider Internal Medicine; PCP Internal Medicine
DX: R07.2 Precordial pain (principal); R07.89 Other chest pain; F17.210 Nicotine dependence, cigarettes, uncomplicated; I10 Essential (primary) hypertension; Z20.822 Contact with and (suspected) exposure to COVID-19; Z71.6 Tobacco abuse counseling; Z79.899 Other long term (current) drug therapy; E11.9 Type 2 diabetes mellitus without complications; Z79.4 Long term (current) use of insulin
CPT/HCPCS: 36415; 71045; 80048; 84484; 85025; 87635; 93005; 99283; 99284

== ENCOUNTER 2021-07-11 01:11 | Emergency (ER) | payer OTHER, SELFPAY ==
--- NOTE | ~2021-07-11 | XR_ITS ---
EXAMINATION: XR CHEST CLINICAL INFORMATION: Chest pain COMPARISON: 05/22/2021 TECHNIQUE: Frontal view of the chest was obtained. FINDINGS: Lung volumes are symmetric. No focal consolidation is seen. No evidence of pneumothorax, pleural effusion, or pulmonary edema. The cardiomediastinal contour is unremarkable. No acute osseous findings are seen. XR/XR chest 1V IMPRESSION: No acute cardiopulmonary findings.
--- NOTE | ~2021-07-11 | CT_ITS ---
EXAMINATION: CT ABDOMEN AND PELVIS WITHOUT CONTRAST CLINICAL INFORMATION: Right flank pain COMPARISON: 04/02/2021, 03/08/2021 TECHNIQUE: Multidetector volumetric imaging was performed from the superior aspect of the liver through the pubic symphysis. Sagittal and coronal reformatted images were obtained on the technologist's workstation. This CT examination was performed using dose optimization techniques as appropriate, variously including the following: *Automated exposure control *Adjustment of mA and/or kV according to patient size (this includes techniques or standardized protocols for targeted exams where dose is matched to indication/reason for exam; i.e. extremities or head) *Use of iterative reconstruction technique DLP: 742 mGy-cm FINDINGS: LUNG BASES: The visualized lung bases are unremarkable. LIVER, GALLBLADDER, AND BILIARY TREE: The liver is normal in size, shape, and attenuation. No focal hepatic lesion or biliary ductal dilatation is present. Gallbladder appears contracted. PANCREAS: Unremarkable. SPLEEN: Unremarkable. ADRENAL GLANDS: Unremarkable. KIDNEYS AND URETERS: Bilateral nephrograms are symmetric. No hydronephrosis or obstructing calculus identified. Mild nonspecific bilateral perinephric stranding. The 1.7 cm enhancing mass at the upper right kidney seen on MRI 04/02/2021 is not adequately seen on this noncontrast exam. BLADDER: Unremarkable. GASTROINTESTINAL TRACT: Colonic diverticulosis is noted. The small and large bowel are otherwise unremarkable without evidence of obstruction or pericolonic inflammatory change. The appendix is unremarkable. No free fluid or free air is seen. ABDOMINAL WALL: No significant hernia is appreciated. LYMPH NODES: Normal. VASCULAR: There is atherosclerotic calcification along the aorta. PELVIC VISCERA: Unremarkable. OSSEOUS STRUCTURES: Degenerative changes are noted in the spine. CT/CT abdomen pelvis wo con IMPRESSION: No acute findings identified in the abdomen/pelvis. The 1.7 cm solid renal mass seen on recent MRI is not well demonstrated on this noncontrast exam. Fleischner guidelines were followed.
[2021-07-11 01:17] VITALS: BP 119/63; BP 140/80; PULSE 82; PULSE 83; RESP 18; TEMP 36.6; O2SAT 97; BMI 33.8
--- NOTE | 2021-07-11 01:23 | ECG_ITS ---
Test Reason : CHEST PAIN Blood Pressure : / mmHG Vent. Rate : 078 BPM Atrial Rate : 078 BPM P-R Int : 274 ms QRS Dur : 076 ms QT Int : 376 ms P-R-T Axes : 049 017 050 degrees QTc Int : 428 ms Sinus rhythm with 1st degree A-V block Otherwise normal ECG When compared with ECG of 22-MAY-2021 22:41, No significant change was found Referred By: Generic ED Physician Electronically Signed By:GREGOR HI MD
--- NOTE | 2021-07-11 02:37 | PC.NURSE ---
This RN attempted to draw blood from the PT with no success. Janett FELIX also tried to obtain labs without success. This RN called [email or web address] to request assistance in obtaining labs. PT is upset that we tried to draw blood twice already without any success.
[2021-07-11 02:50] LABS: Eosinophils Absolute Auto 0.1 X10*3/uL (0.0-0.4); Eosinophils Percent Auto 0.8 % (0-4); PLT CLUMP 1; SCAN SMEAR FLAG 1
[2021-07-11 02:52] LABS: Basophils Percent Auto 0.5 % (0-2); Hematocrit 35.7 % (42.0-52.0); Hemoglobin 12.8 g/dl (14.0-18.0); Imm Gran Abs Auto 0.03 X10*3/uL (0.00-0.03); Imm Gran Pct Auto 0.4 % (0.0-0.4); Lymphocytes Absolute Auto 2.6 X10*3/uL (1.2-4.9); Lymphocytes Percent Auto 30.7 % (20-40); Mean Corpuscular HGB Conc 35.9 g/dl (31.0-36.0); Mean Corpuscular Hemoglobin 33.8 pg (27.0-33.0); Mean Corpuscular Volume 94.2 fL (80.0-98.0); Monocytes Absolute Auto 0.6 X10*3/uL (0.1-1.2); Monocytes Percent Auto 7.5 % (2-11); Neutrophils Absolute Auto 5.1 x10*3/uL (2.0-8.3); Neutrophils Percent Auto 60.1 % (45-73); Red Blood Count 3.79 X10*6/uL (4.60-5.80); Red Cell Distribution Width 12.7 % (11.0-16.0)
[2021-07-11 02:53] LABS: MANUAL DIFF FLAG NO; Platelet Count 123 X10*3/uL (160-400); White Blood Count 8.4 X10*3/uL (4.8-10.8)
[2021-07-11 03:09] LABS: Alanine Aminotransferase 19 U/L (0-40); Albumin Level 3.9 g/dL (3.5-5.0); Alkaline Phosphatase 81 U/L (39-117); Anion Gap 13 (12-20); Aspartate Amino Transferase 22 U/L (5-37); Bilirubin Direct 0.4 mg/dL (0.0-0.5); Blood Urea Nitrogen 11 mg/dL (9-16); Calcium 9.4 mg/dL (8.4-10.2); Carbon Dioxide 24 mmol/L (22-29); Chloride 103 mmol/L (96-108); Estimated Glomerular Filt Rate > 60; Glucose Random 138 mg/dL (60-115); Lipase 33 U/L (8-78); Potassium 4.1 mmol/L (3.3-5.1); Sodium 136 mmol/L (135-145); Total Protein 6.4 g/dL (6.5-8.0)
[2021-07-11 03:12] LABS: Troponin-I High Sensitivity 67.2 ng/L (<3.5-35.0)
[2021-07-11 03:45] VITALS: BP 126/74; PULSE 72; RESP 14; TEMP 36.7; O2SAT 96
[2021-07-11 04:27] VITALS: BP 136/73; PULSE 74; RESP 14; O2SAT 97
--- NOTE | 2021-07-11 04:33 | ED_ITS ---
HPI - General Adult General Chief complaint: Abdominal Pain Stated complaint: Rt Flank Pain Time Seen by Provider: 07/11/21 01:29 Source: patient and EMS Mode of arrival: EMS Limitations: no limitations History of Present Illness HPI narrative: 55 years old male came in by ambulance for evaluation of right flank pain and left-sided chest pain. Patient been having left-sided chest pain started a year ago, claim that he has been telling his doctor and healthcare provider that he is building up fluid in his left lung, patient stated that his been having left-sided chest pain since yesterday after dinner, pain was described by the patient has fullness in left lung, otherwise decline coughing or shortness of breath. Pain is not exertional no relieving factor or aggravating factor. Patient live with this pain on and off for the past year. Patient had myocardial perfusion scan 2 years ago which was normal myocardial perfusion with no evidence of ischemia or infarction. Patient also been complaining of right flank pain started since yesterday patient is known to have 1.7 cm renal cell carcinoma on the right kidney the patient is aware of it, patient was seen and evaluated by Dr. Del Angel from Urology on 04/18/2021 who recommended follow-up in 6 months. Related Data Home Medications Medication Instructions Recorded Confirmed alcohol swabs 1 pad TOPICAL DAILY 03/15/20 04/10/21 blood sugar diagnostic #10 ea 03/15/20 04/10/21 lancets 28 gauge #100 ea 03/15/20 04/10/21 perphenazine 2 mg tablet 2 mg PO BID 03/15/20 04/10/21 clonazepam 0.5 mg tablet 0.5 mg PO BID 10/25/20 04/10/21 insulin glargine 100 unit/mL (3 48 unit SUBCUT ml 10/25/20 04/10/21 mL) subcutaneous pen perphenazine 4 mg tablet 4 mg PO BID 10/25/20 04/10/21 perphenazine 8 mg tablet 8 mg PO TID tab 10/25/20 04/10/21 semaglutide (Ozempic) 0.5 mg SUBCUT QWEEK 10/25/20 04/10/21 trazodone 50 mg tablet 100 mg PO Q OTHER DAY PRN tab 10/25/20 04/10/21 Previous Rx's Medication Instructions Recorded multivitamin 1 tab PO DAILY #30 tab 08/15/20 cholecalciferol (vitamin D3) 25 25 mcg PO DAILY #90 cap 12/11/20 mcg (1,000 unit) capsule omeprazole 20 mg capsule,delayed 20 mg PO DAILY #90 cap 12/11/20 release desmopressin 0.1 mg tablet 0.2 mg PO BEDTIME 30 Days #60 tab 02/12/21 levothyroxine 50 mcg tablet 50 mcg PO QAM #30 tab 03/12/21 pen needle, diabetic 31 gauge x #1200 ea 03/12/2109/16 famotidine 20 mg tablet 40 mg PO BID #120 tab 04/15/21 magnesium oxide 400 mg (241.3 mg 400 mg PO DAILY #30 tab 04/15/21 magnesium) tablet lactulose 10 gram/15 mL oral 15 ml PO BEDTIME PRN #237 ml 05/15/21 solution aspirin 81 mg chewable tablet 1 tab PO QAM 90 Days #90 tab 05/28/21 benzonatate 100 mg capsule 100 mg PO TID PRN 10 Days #30 cap 05/28/21 lisinopril 5 mg tablet 5 mg PO DAILY #90 tab 05/30/21 metoprolol tartrate 50 mg tablet 50 mg PO BID #180 tab 05/30/21 dextromethorphan 5 mg-guaifenesin 20 ml PO Q4-6H PRN #237 ml 05/31/21 50 mg/5 mL oral liquid ibuprofen 600 mg tablet 600 mg PO TID PRN #90 tab 06/04/21 sennosides 8.6 mg tablet (senna) 17.2 mg PO DAILY #180 tab 06/04/21 atorvastatin 10 mg tablet 10 mg PO DAILY #30 tab 06/24/21 Allergies Allergy/AdvReac Type Severity Reaction Status Date / Time clozapine [From Clozaril] Allergy Mild ringing in Verified 05/28/21 17:00 ears, pain, leukopenia trifluoperazine Allergy Tongue Verified 05/28/21 17:00 [From Stelazine] Swelling Review of Systems Review of Systems: All other systems are reviewed and are negative Constitutional: Reports as per HPI and Reports no additional constitutional complaints Eyes: Reports as per HPI and Reports no additional eye complaints Reports system reviewed and no additional complaints, except as documented Cardiovascular: Reports as per HPI and Reports no additional cardiovascular complaints Respiratory: Reports as per HPI and Reports no additional respiratory complaints Gastrointestinal: Reports as per HPI and Reports no additional gastrointestinal complaints Genitourinary: Reports no additional female genitourinary complaints Musculoskeletal: Reports no additional musculoskeletal complaints Skin/Breast: Reports system reviewed and no additional complaints, except as docu Psychiatric: Reports no additional psychiatric complaints Endocrine: Reports no additional endocrine complaints Hematologic/Lymphatic: Reports no additional hematologic/lymphatic complaints Allergic/Immunologic: Reports no additional allergic/immunologic complaints Reports system reviewed and no additional complaints, except as documented and Reports Abnormal speech present [facility] Past Medical History Medical History Acquired hypothyroidism Anxiety Axillary abscess Benign essential hypertension Constipation Diabetes mellitus Dyspnea GERD without esophagitis Hyperlipidemia Hypertension, essential Hypothyroidism Insulin dependent diabetes mellitus Lung nodule Midline low back pain Nicotine dependence, cigarettes, uncomplicated Nocturnal enuresis Obesity (BMI 30-39.9) Obesity (BMI 30-39.9) Obesity (BMI 35.0-39.9 without comorbidity) Obstructive sleep apnea On beta evaristo at home Pure hypercholesterolemia Schizoaffective disorder Schizophrenia Screening for STD (sexually transmitted disease) Smoker Surgical History H/O colonoscopy History of left inguinal hernia repair Hx of facial fracture repair Family History Family History Father CVD (cardiovascular disease) Mother CVD (cardiovascular disease) Diabetes Sister Colon polyps Social History Social History Housing: Assisted Living Facility Housing Other:: snf Alcohol intake: never Patient Tobacco Use Status: Current everyday Tobacco user Tobacco use type: Cigar Cigarettes Per Day: 6 Years Smoked: 38 e-Cigarette/Vaping Use: Never Used Second Hand Smoke Exposure: Yes Advance Directives: No service: No Current occupational status: disabled Physical Exam ED Vital Signs: Vital Signs - 24 hr 07/11/21 01:17 07/11/21 03:45 07/11/21 04:27 Temperature 97.8 F 98.0 F Pulse Rate 83 72 74 Respiratory Rate 18 14 14 Blood Pressure 119/63 126/74 136/73 Pulse Oximetry 97 96 97 BMI result Body Mass Index 33.8 Vital signs have been reviewed as appeared to be correct. Blood pressure normal. Heart rate normal. Respiration rate normal. Temperature normal. Oxygen saturation normal. Appearance: Alert. Oriented X3. No acute distress. Head: Normal external exam. Normocephalic. Atraumatic. No Smith signs noted. No raccoon eyes noted Eyes: PERRLA. EOMI. Conjunctiva and sclera normal. Eyelids normal. ENT: TM's Normal. Pharynx normal. Uvula midline. Moist mucous membranes. No trismus noted. No drooling noted. No muffled voice noted. Neck: Normal inspection. Neck supple. FROM. No adenopathy. Thyroid Normal. No meningeal signs. No neck mass noted. CVS: Normal heart rate and rhythm. Heart sound normal. No murmurs noted. Pulses normal throughout. Respiratory: No respiratory distress. Painless inspiration. Breath sounds normal. No wheezes/rales/rhonchi noted. Chest nontender. No accessory muscle usage noted or decreased air movement noted. Abdomen: Soft and nontender. Bowel sounds normal in all 4 quadrants. No distention noted. No organomegaly noted. No visible injury noted. Back: No CVA tenderness. Full range of motion noted. Skin: Skin warm and dry. Normal skin color. Normal skin turgor. No rashes/lesions/lacerations noted. Extremities: No lower extremity edema. Extremities exhibit normal range of motion. Extremities nontender. Neuro: Oriented X 3. Cranial nerve exam: II-XII are grossly intact No motor deficit. No sensory deficit. Reflexes normal. Course Course Course Narrative: Assessment and plan. 55-year-old male came in initially for right flank pain known history of 1.7 cm right kidney mass, CT of the abdomen was repeated today the mass was not demonstrated on the CT today, patient already was evaluated by urologist supposed to follow-up with him in 6 months. Patient also presented with left-sided chest pain, patient's HEART SCORE IS 3 serial slightly elevated troponin but with no delta changes. the patient had a recent negative cardiac workup. Patient can be safely discharged back to the [facility] home. Medical Decision Making Lab Data Lab results reviewed: Yes I reviewed the patient's lab results. Result diagrams: 07/11/21 02:44 07/11/21 02:44 Labs: Lab Results 07/11/21 07/11/21 07/11/21 Range/Units 02:44 02:44 02:44 WBC 8.4 (4.8-10.8) X10*3/uL RBC 3.79 L (4.60-5.80) X10*6/uL Hgb 12.8 L (14.0-18.0) g/dl Hct 35.7 L (42.0-52.0) % MCV 94.2 (80.0-98.0) fL MCH 33.8 H (27.0-33.0) pg MCHC 35.9 (31.0-36.0) g/dl RDW 12.7 (11.0-16.0) % Plt Count 123 L (160-400) X10*3/uL MPV 10.0 (9.4-12.4) fL Immature Gran % (Auto) 0.4 (0.0-0.4) % Neut % (Auto) 60.1 (45-73) % Lymph % (Auto) 30.7 (20-40) % Ashe % (Auto) 7.5 (2-11) % Eos % (Auto) 0.8 (0-4) % Baso % (Auto) 0.5 (0-2) % Lymph # (Auto) 2.6 (1.2-4.9) X10*3/uL Ashe # (Auto) 0.6 (0.1-1.2) X10*3/uL Eos # (Auto) 0.1 (0.0-0.4) X10*3/uL Baso # (Auto) 0.0 (0.0-0.2) X10*3/uL Abs Immat Gran (auto) 0.03 (0.00-0.03) X10*3/uL Absolute Neuts (auto) 5.1 (2.0-8.3) x10*3/uL Absolute Nucleated RBC 0.000 (0.0-0.012) X10*3/uL Nucleated RBC % (auto) 0.0 (0.0-0.2) /100WBC Sodium 136 (135-145) mmol/L Potassium 4.1 (3.3-5.1) mmol/L Chloride 103 (96-108) mmol/L Carbon Dioxide 24 (22-29) mmol/L Anion Gap 13 (12-20) BUN 11 (9-16) mg/dL Creatinine 0.91 (0.5-1.4) mg/dL Estim Creat Clear Calc 111.0 Estimated GFR > 60 Random Glucose 138 H (60-115) mg/dL Calcium 9.4 (8.4-10.2) mg/dL Total Bilirubin 1.0 (0.0-1.0) mg/dL Direct Bilirubin 0.4 (0.0-0.5) mg/dL AST 22 (5-37) U/L ALT 19 (0-40) U/L Alkaline Phosphatase 81 D (39-117) U/L Troponin I High Sens 67.2 H D (<3.5-35.0) ng/L Total Protein 6.4 L (6.5-8.0) g/dL Albumin 3.9 (3.5-5.0) g/dL Lipase 33 (8-78) U/L 07/11/21 07/11/21 Range/Units 02:44 05:13 WBC (4.8-10.8) X10*3/uL RBC (4.60-5.80) X10*6/uL Hgb (14.0-18.0) g/dl Hct (42.0-52.0) % MCV (80.0-98.0) fL MCH (27.0-33.0) pg MCHC (31.0-36.0) g/dl RDW (11.0-16.0) % Plt Count (160-400) X10*3/uL MPV (9.4-12.4) fL Immature Gran % (Auto) (0.0-0.4) % Neut % (Auto) (45-73) % Lymph % (Auto) (20-40) % Ashe % (Auto) (2-11) % Eos % (Auto) (0-4) % Baso % (Auto) (0-2) % Lymph # (Auto) (1.2-4.9) X10*3/uL Ashe # (Auto) (0.1-1.2) X10*3/uL Eos # (Auto) (0.0-0.4) X10*3/uL Baso # (Auto) (0.0-0.2) X10*3/uL Abs Immat Gran (auto) (0.00-0.03) X10*3/uL Absolute Neuts (auto) (2.0-8.3) x10*3/uL Absolute Nucleated RBC (0.0-0.012) X10*3/uL Nucleated RBC % (auto) (0.0-0.2) /100WBC Sodium (135-145) mmol/L Potassium (3.3-5.1) mmol/L Chloride (96-108) mmol/L Carbon Dioxide (22-29) mmol/L Anion Gap (12-20) BUN (9-16) mg/dL Creatinine (0.5-1.4) mg/dL Estim Creat Clear Calc Estimated GFR Random Glucose (60-115) mg/dL Calcium (8.4-10.2) mg/dL Total Bilirubin Cancelled (0.0-1.0) mg/dL Direct Bilirubin Cancelled (0.0-0.5) mg/dL AST Cancelled (5-37) U/L ALT Cancelled (0-40) U/L Alkaline Phosphatase Cancelled (39-117) U/L Troponin I High Sens 62.1 H (<3.5-35.0) ng/L Total Protein Cancelled (6.5-8.0) g/dL Albumin Cancelled (3.5-5.0) g/dL Lipase Cancelled (8-78) U/L Imaging Data Chest x-ray: Attestation: I personally reviewed and interpreted this imaging study as follows: Radiologist's impression: No acute cardiopulmonary findings. CT abdomen and pelvis: Attestation: I personally reviewed and interpreted this imaging study as follows: Radiologist's impression: No acute findings identified in the abdomen/pelvis. The 1.7 cm solid renal mass seen on recent MRI is not well demonstrated on this noncontrast exam. ? ECG Data Interpretation: EKG 1. Normal sinus rhythm with first-degree AV block at rate of 78, normal intervals, normal axis deviation, no ST-T changes. EKG 2. Normal sinus rhythm with first-degree AV block at 77 beats per minutes, normal intervals, normal axis deviation, no ST-T changes. Discharge Plan Discharge Clinical Impression: Anxiety, Chest pain, Right flank pain Patient Disposition: Home, Self-Care Instructions: Flank Pain (ED), Chest Pain (ED) Prescriptions: No Action multivitamin Tablet 1 tab PO DAILY Qty: 30 12RF cholecalciferol (vitamin D3) 25 mcg (1,000 unit) capsule 25 mcg PO DAILY Qty: 90 3RF omeprazole 20 mg capsule,delayed release(DR/EC) 20 mg PO DAILY Qty: 90 3RF desmopressin 0.1 mg tablet 0.2 mg PO BEDTIME 30 Days Qty: 60 6RF levothyroxine 50 mcg tablet 50 mcg PO QAM Qty: 30 3RF (DME) pen needle, diabetic 31 gauge x 5/16 needle See Rx Instructions ea .ROUTE .MEDSUPPLY Qty: 1200 0RF Rx Instructions: Use 4 times daily magnesium oxide 400 mg (241.3 mg magnesium) tablet 400 mg PO DAILY Qty: 30 3RF famotidine 20 mg tablet 40 mg PO BID Qty: 120 2RF lactulose 10 gram/15 mL solution 15 ml PO BEDTIME PRN (Reason: constipation) Qty: 237 2RF lisinopril 5 mg tablet 5 mg PO DAILY Qty: 90 0RF metoprolol tartrate 50 mg tablet 50 mg PO BID Qty: 180 0RF dextromethorphan-guaifenesin 5-50 mg/5 mL liquid 20 ml PO Q4-6H PRN (Reason: cough) Qty: 237 0RF ibuprofen 600 mg tablet 600 mg PO TID PRN (Reason: for pain) Qty: 90 0RF sennosides [senna] 8.6 mg tablet 17.2 mg PO DAILY Qty: 180 0RF atorvastatin 10 mg tablet 10 mg PO DAILY Qty: 30 2RF aspirin 81 mg tablet,chewable 1 tab PO QAM 90 Days Qty: 90 3RF benzonatate 100 mg capsule 100 mg PO TID PRN (Reason: cough) 10 Days Qty: 30 0RF perphenazine 2 mg tablet 2 mg PO BID 0RF (DME) blood sugar diagnostic Strip See Rx Instructions ea Not Applicable .MEDSUPPLY Qty: 10 0RF Rx Instructions: As directed alcohol swabs Pads, Medicated 1 pad topical DAILY 0RF (DME) lancets 28 gauge misc See Rx Instructions ea topical .MEDSUPPLY Qty: 100 0RF Rx Instructions: As directed insulin glargine 100 unit/mL (3 mL) insulin pen 48 unit subcut 0RF clonazepam 0.5 mg tablet 0.5 mg PO BID 0RF perphenazine 8 mg tablet 8 mg PO TID 0RF trazodone 50 mg tablet 100 mg PO Q OTHER DAY PRN (Reason: Sleep) 0RF Ozempic 0.25 mg or 0.5 mg(2 mg/1.5 mL) pen injector 0.5 mg subcut QWEEK 0RF perphenazine 4 mg tablet 4 mg PO BID 0RF Referrals: Mando Turpin MD [Primary Care Provider] - 2 days Abdulkadir Duncan MD [Physician] - 2 days Ramiro Del Angel MD [Physician] - 2 weeks
--- NOTE | 2021-07-11 05:15 | ECG_ITS ---
Test Reason : CHEST PAIN Blood Pressure : / mmHG Vent. Rate : 077 BPM Atrial Rate : 077 BPM P-R Int : 290 ms QRS Dur : 078 ms QT Int : 384 ms P-R-T Axes : 045 032 055 degrees QTc Int : 434 ms Sinus rhythm with 1st degree A-V block Otherwise normal ECG When compared with ECG of 11-JUL-2021 01:29, No significant change was found Referred By: Angel Little Electronically Signed By:GREGOR HI MD
--- NOTE | 2021-07-11 05:17 | PC.NURSE ---
While having second troponin drawn, PT began to complain of chest pain and tightness. MD made aware. MD requested that we repeat EKG.
[2021-07-11 05:36] LABS: Troponin-I High Sensitivity 62.1 ng/L (<3.5-35.0)
[2021-07-11 06:13] VITALS: BP 150/80; PULSE 77; RESP 18; O2SAT 97
== END 2021-07-11 07:50 | disposition home or self-care (01) ==
PROVIDERS: Emergency Provider Emergency Medicine; PCP Internal Medicine
DX: R10.9 Unspecified abdominal pain (principal); R07.9 Chest pain, unspecified; F41.9 Anxiety disorder, unspecified; E11.9 Type 2 diabetes mellitus without complications; I10 Essential (primary) hypertension; Z79.899 Other long term (current) drug therapy
CPT/HCPCS: 36415; 71045; 74176; 80048; 80076; 83690; 84484; 85025; 93005; 99284

== ENCOUNTER 2021-10-16 11:02 | Outpatient (REF) | payer OTHER, SELFPAY ==
--- NOTE | ~2021-10-16 | MR_ITS ---
EXAMINATION: MR ABDOMEN WITHOUT AND WITH CONTRAST CLINICAL INFORMATION: C64.1 - Malignant neoplasm of right kidney. Right back pain. COMPARISON: MR abdomen without and with contrast 04/02/2021, CT abdomen and pelvis noncontrast 07/11/2021, CT abdomen and pelvis with intravenous contrast 03/08/2021. TECHNIQUE: MR abdomen is performed without and with use of 10 mL intravenous Gadavist gadolinium contrast. Postcontrast images are performed in arterial and venous phase. Imaging is performed in 3 planes. FINDINGS: LUNG BASES: The visualized lung bases are unremarkable. LIVER, GALLBLADDER, AND BILIARY TREE: Normal in size and smooth in contour. Parenchymal homogeneous in signal. Borderline hepatic steatosis. No focal parenchymal lesion. No intrahepatic ductal dilatation. Gallbladder and common duct unremarkable. PANCREAS: Unremarkable. SPLEEN: Normal. ADRENAL GLANDS: Normal. KIDNEYS AND URETERS: The kidneys are normal in size and parenchymal thickness. No hydronephrosis or perinephric stranding. Left kidney approximately 12.1 cm in length with incidental 1 cm cyst posterior upper to interpolar region similar to prior study. No additional imaging follow-up required. Right kidney approximately 11.5 cm in length with a stable 1.7 cm mass posterior upper pole heterogeneous iso-T2 with heterogeneous internal enhancement following gadolinium. No associated fat or blood or calcification. There is also a tiny incidental cyst lateral interpolar right kidney measuring under 5 mm. No additional imaging follow-up for cyst required. GASTROINTESTINAL TRACT: No bowel obstruction or focal inflammatory changes. Normal appendix. No ascites or fluid collection. ABDOMINAL WALL: No significant hernia is appreciated. LYMPH NODES: No adenopathy. VASCULAR: Unremarkable. OSSEOUS STRUCTURES: Normal marrow signal. Degenerative changes lower thoracic spine with old mild wedging thoracic vertebral bodies T8 and T9 similar to CT studies. MR/MR kidney wo/w con IMPRESSION: -Stable heterogeneously enhancing lesion posterior upper pole right kidney under 2 cm. -No adenopathy.
== END 2021-10-16 11:03 | disposition home or self-care (01) ==
LOC: HO.MRI 11:02
PROVIDERS: Visit Provider Urology
DX: C64.1 Malignant neoplasm of right kidney, except renal pelvis (principal)
CPT/HCPCS: 74181; A9585

== ENCOUNTER → 2021-10-29 10:39 | Outpatient (BNVA) | payer OTHER, SELFPAY | PROVIDERS: PCP Internal Medicine; Visit Provider Urology | DX: N40.1 Benign prostatic hyperplasia with lower urinary tract symptoms (principal); N13.8 Other obstructive and reflux uropathy; C64.1 Malignant neoplasm of right kidney, except renal pelvis | CPT/HCPCS: 99212 ==

== ENCOUNTER → 2021-12-11 08:25 | Outpatient (BNVA) | payer OTHER, SELFPAY | PROVIDERS: PCP Internal Medicine; Visit Provider Urology | DX: C64.1 Malignant neoplasm of right kidney, except renal pelvis (principal); N40.1 Benign prostatic hyperplasia with lower urinary tract symptoms; N13.8 Other obstructive and reflux uropathy | CPT/HCPCS: Q3014 ==

== ENCOUNTER 2022-01-13 21:37 | Emergency (ER) | payer OTHER, SELFPAY ==
--- NOTE | 2022-01-13 | ECG_ITS ---
Test Reason : CHEST PAIN Blood Pressure : / mmHG Vent. Rate : 076 BPM Atrial Rate : 076 BPM P-R Int : 284 ms QRS Dur : 084 ms QT Int : 358 ms P-R-T Axes : 061 036 049 degrees QTc Int : 402 ms Sinus rhythm with 1st degree A-V block Low voltage QRS Borderline ECG When compared with ECG of 11-JUL-2021 05:14, No significant change was found Referred By: Shawn Joe Electronically Signed By:MARK MORIN
[2022-01-13 21:56] VITALS: BP 146/83; PULSE 82; RESP 16; TEMP 36.6; O2SAT 99; BMI 29.2
--- NOTE | 2022-01-13 22:08 | ED_ITS ---
HPI - General Adult General Chief complaint: General Medical Stated complaint: CP,LOW BACK PAIN PER EMS Time Seen by Provider: 01/13/22 22:08 History of Present Illness HPI narrative: Patient with history of renal cell carcinoma, hypertension, diabetes, bipolar disorder, schizophrenia closed with lower back pain also complaining of chest pain for last few, worried about more with kidney pain feel anxious no nausea no vomiting no diaphoresis Related Data Home Medications Medication Instructions Recorded Confirmed alcohol swabs 1 pad topical DAILY 03/15/20 12/26/21 blood sugar diagnostic #10 ea 03/15/20 12/26/21 lancets 28 gauge #100 ea 03/15/20 12/26/21 perphenazine 2 mg tablet 2 mg PO BID 03/15/20 12/26/21 clonazepam 0.5 mg tablet 0.5 mg PO BID Anxiety 10/25/20 12/26/21 insulin glargine 100 unit/mL (3 48 unit subcut 10/25/20 12/26/21 mL) subcutaneous pen perphenazine 4 mg tablet 4 mg PO BID 10/25/20 12/26/21 perphenazine 8 mg tablet 8 mg PO TID 10/25/20 12/26/21 trazodone 50 mg tablet 100 mg PO Q OTHER DAY PRN Sleep 10/25/20 12/26/21 Previous Rx's Medication Instructions Recorded cholecalciferol (vitamin D3) 25 25 mcg PO DAILY #90 caps 12/11/20 mcg (1,000 unit) capsule pen needle, diabetic 31 gauge x #1,200 ea 03/12/2109/16 lactulose 10 gram/15 mL oral 15 ml PO BEDTIME PRN constipation 05/15/21 solution #237 mL benzonatate 100 mg capsule 100 mg PO TID PRN cough 10 days 05/28/21 #30 caps dextromethorphan 5 mg-guaifenesin 20 ml PO Q4-6H PRN cough #237 mL 05/31/21 50 mg/5 mL oral liquid acetaminophen 500 mg tablet 500 mg PO Q6H PRN fever or pain 30 07/15/21 (Tylenol Extra Strength) days #120 tabs QUAD CANE #1 ea 07/31/21 magnesium oxide 400 mg (241.3 mg 400 mg PO DAILY #30 tabs 09/09/21 magnesium) tablet atorvastatin 10 mg tablet 10 mg PO DAILY #30 tabs 09/23/21 aspirin 81 mg chewable tablet 1 tab PO QAM 90 days #90 tabs 10/01/21 desmopressin 0.1 mg tablet 0.2 mg PO BEDTIME 30 days #60 tabs 10/04/21 sennosides 8.6 mg tablet (senna) 17.2 mg PO DAILY for constipation 12/02/21 #60 tabs dulaglutide 1.5 mg/0.5 mL 1.5 mg (0.5 mL) subcut QWEEK 30 12/13/21 subcutaneous pen injector days #2.5 mL famotidine 20 mg tablet 40 mg PO BID #120 tabs 12/22/21 tizanidine 4 mg tablet 4 mg PO BEDTIME low back pain 30 12/26/21 days #30 tabs levothyroxine 50 mcg tablet 50 mcg PO QAM #30 tabs 12/30/21 omeprazole 20 mg capsule,delayed 20 mg PO DAILY #90 caps 12/31/21 release pen needle, diabetic 33 gauge x #100 ea 12/31/2105/07 (Comfort EZ Pen [place]) lisinopril 5 mg tablet 5 mg PO DAILY #90 tabs 01/05/22 metoprolol tartrate 50 mg tablet 50 mg PO BID #180 tabs 01/05/22 multivitamin with folic acid 400 1 tab PO DAILY #30 tabs 01/05/22 mcg tablet (Tab-A-[place]on) ibuprofen 600 mg tablet 600 mg PO TID PRN for pain #90 tabs 01/12/22 Allergies Allergy/AdvReac Type Severity Reaction Status Date / Time clozapine [From Clozaril] Allergy Mild ringing in Verified 12/26/21 10:27 ears, pain, leukopenia trifluoperazine Allergy Tongue Verified 12/26/21 10:27 [From Stelazine] Swelling Review of Systems Review of Systems: Yes all other systems are reviewed and are negative FOR[facility]LY [facility], [facility] Past Medical History Medical History Acquired hypothyroidism Anxiety Benign essential hypertension Constipation Diabetes mellitus Dyspnea GERD without esophagitis Hyperlipidemia Hypertension, essential Hypothyroidism Insulin dependent diabetes mellitus Lung nodule Midline low back pain Nicotine dependence, cigarettes, uncomplicated Nocturnal enuresis Obesity (BMI 30-39.9) Obesity (BMI 30-39.9) Obesity (BMI 35.0-39.9 without comorbidity) Obstructive sleep apnea On beta evaristo at home Pure hypercholesterolemia Schizoaffective disorder Schizophrenia Screening for STD (sexually transmitted disease) Smoker Surgical History H/O colonoscopy (~10/12/20) History of left inguinal hernia repair Hx of facial fracture repair Family History Family History Father CVD (cardiovascular disease) Mother CVD (cardiovascular disease) Diabetes Sister Colon polyps Social History Social History Housing: Other Housing Other:: CHD Alcohol intake: never Patient Tobacco Use Status: Current everyday Tobacco user Tobacco use type: Cigar Cigarettes Per Day: 6 Years Smoked: 38 e-Cigarette/Vaping Use: Never Used Second Hand Smoke Exposure: Yes Advance Directives: No Advance Directives Information Provided: No service: No Current occupational status: disabled Cognitive needs: No Hearing needs: No Vision needs: No Physical Exam ED Vital Signs: Vital Signs - 24 hr 01/13/22 21:56 Temperature 98 F Pulse Rate 82 Respiratory Rate 16 Blood Pressure 146/83 H Pulse Oximetry 99 Oxygen Delivery Method Room Air BMI result Body Mass Index 29.2 Appearance: Alert. Oriented X3. No acute distress. Anxious Eyes: PERRLA, No Nystagmus ENT: Pharynx normal. Oral Mucosa moist Neck: Normal inspection. Neck supple. CVS: Normal heart rate and rhythm. Pulses normal. Respiratory: No respiratory distress. Equal air entry bilateral, no wheezing/rales/rhonchi Abdomen: Soft and nontender. Bowel sounds are present, no mass palpable, no CVA tenderness Skin: Skin warm and dry. Normal skin color. Normal skin turgor. Extremities: No lower extremity edema. No calf tenderness Neuro: Oriented X 3. No motor deficit. No sensory deficit.No cerebellar signs , cranial nerves II-XII intact Medical Decision Making MDM Narrative Medical decision making narrative: Patient has nonspecific pain workup negative for any acute discharge patient Lab Data Lab results reviewed: Yes I reviewed the patient's lab results. Result diagrams: 01/13/22 22:31 01/13/22 22:31 Labs: Lab Results 01/13/22 01/13/22 01/13/22 Range/Units 22:31 22:31 22:31 WBC 7.5 (4.8-10.8) X10*3/uL RBC 3.71 L (4.60-5.80) X10*6/uL Hgb 12.6 L (14.0-18.0) g/dl Hct 34.3 L (42.0-52.0) % MCV 92.5 (80.0-98.0) fL MCH 34.0 H (27.0-33.0) pg MCHC 36.7 H (31.0-36.0) g/dl RDW 13.1 (11.0-16.0) % Plt Count 104 L (160-400) X10*3/uL MPV 11.8 (9.4-12.4) fL Immature Gran % (Auto) 0.3 (0.0-0.4) % Neut % (Auto) 61.0 (45-73) % Lymph % (Auto) 26.7 (20-40) % Phillips % (Auto) 10.4 (2-11) % Eos % (Auto) 1.1 (0-4) % Baso % (Auto) 0.5 (0-2) % Lymph # (Auto) 2.0 (1.2-4.9) X10*3/uL Phillips # (Auto) 0.8 (0.1-1.2) X10*3/uL Eos # (Auto) 0.1 (0.0-0.4) X10*3/uL Baso # (Auto) 0.0 (0.0-0.2) X10*3/uL Abs Immat Gran (auto) 0.02 (0.00-0.03) X10*3/uL Absolute Neuts (auto) 4.6 (2.0-8.3) x10*3/uL Absolute Nucleated RBC 0.000 (0.0-0.012) X10*3/uL Nucleated RBC % (auto) 0.0 (0.0-0.2) /100WBC Smear Tech's Comments VERIFIED Sodium 138 (135-145) mmol/L Potassium 4.7 (3.3-5.1) mmol/L Chloride 102 (96-108) mmol/L Carbon Dioxide 28 (22-29) mmol/L Anion Gap 13 (12-20) BUN 15 (9-16) mg/dL Creatinine 0.79 (0.5-1.4) mg/dL Estim Creat Clear Calc 117.9 Estimated GFR > 60 Random Glucose 105 (60-115) mg/dL Calcium 9.9 (8.4-10.2) mg/dL Total Bilirubin 1.0 (0.0-1.0) mg/dL AST 21 (5-37) U/L ALT 29 (0-40) U/L Alkaline Phosphatase 77 (39-117) U/L Troponin I High Sens < 3.5 D (<3.5-35.0) ng/L Total Protein 6.6 (6.5-8.0) g/dL Albumin 4.1 (3.5-5.0) g/dL Discharge Plan Discharge Clinical Impression: Anxiety, Chest discomfort Patient Disposition: Home, Self-Care Instructions: Chest Pain (ED), Anxiety (ED) Additional Instructions: your cardiogram is normal and does not look like a heart attack Follow-up with PCP/linux architect Prescriptions: No Action cholecalciferol (vitamin D3) 25 mcg (1,000 unit) capsule 25 mcg PO DAILY Qty: 90 3RF (DME) pen needle, diabetic 31 gauge x 5/16 needle See Rx Instructions .ROUTE .MEDSUPPLY Qty: 1200 0RF Rx Instructions: Use 4 times daily lactulose 10 gram/15 mL solution 15 ml PO BEDTIME PRN (Reason: constipation) Qty: 237 2RF dextromethorphan-guaifenesin 5-50 mg/5 mL liquid 20 ml PO Q4-6H PRN (Reason: cough) Qty: 237 0RF acetaminophen [Tylenol Extra Strength] 500 mg tablet 500 mg PO Q6H PRN (Reason: fever or pain) 30 Days Qty: 120 2RF Rx Instructions: TAKE 1 TABLET BY MOUTH EVERY 6 HOURS NEEDED. (NO MORE THAN 4 TABLETS A DAY) magnesium oxide 400 mg (241.3 mg magnesium) tablet 400 mg PO DAILY Qty: 30 2RF atorvastatin 10 mg tablet 10 mg PO DAILY Qty: 30 2RF aspirin 81 mg tablet,chewable 1 tab PO QAM 90 Days Qty: 90 3RF desmopressin 0.1 mg tablet 0.2 mg PO BEDTIME 30 Days Qty: 60 6RF sennosides [senna] 8.6 mg tablet 17.2 mg PO DAILY Qty: 60 0RF dulaglutide 1.5 mg/0.5 mL pen injector 1.5 mg subcut QWEEK 30 Days Qty: 2.5 0RF famotidine 20 mg tablet 40 mg PO BID Qty: 120 0RF levothyroxine 50 mcg tablet 50 mcg PO QAM Qty: 30 3RF (DME) Comfort EZ Pen [place] 33 gauge x 1/4 needle See Rx Instructions .ROUTE .MEDSUPPLY Qty: 100 0RF Rx Instructions: As directed omeprazole 20 mg capsule,delayed release(DR/EC) 20 mg PO DAILY Qty: 90 3RF multivitamin with folic acid [Tab-A-[place]on] 400 mcg tablet 1 tab PO DAILY Qty: 30 3RF lisinopril 5 mg tablet 5 mg PO DAILY Qty: 90 0RF metoprolol tartrate 50 mg tablet 50 mg PO BID Qty: 180 0RF ibuprofen 600 mg tablet 600 mg PO TID PRN (Reason: for pain) Qty: 90 0RF tizanidine 4 mg tablet 4 mg PO BEDTIME 30 Days Qty: 30 3RF (DME) QUAD CANE See Rx Instructions .Route .MEDSUPPLY Qty: 1 0RF Rx Instructions: As directed benzonatate 100 mg capsule 100 mg PO TID PRN (Reason: cough) 10 Days Qty: 30 0RF perphenazine 2 mg tablet 2 mg PO BID (DME) blood sugar diagnostic Strip See Rx Instructions Not Applicable .MEDSUPPLY Qty: 10 Rx Instructions: As directed alcohol swabs Pads, Medicated 1 pad topical DAILY (DME) lancets 28 gauge misc See Rx Instructions topical .MEDSUPPLY Qty: 100 Rx Instructions: As directed insulin glargine 100 unit/mL (3 mL) insulin pen 48 unit subcut clonazepam 0.5 mg tablet 0.5 mg PO BID perphenazine 8 mg tablet 8 mg PO TID trazodone 50 mg tablet 100 mg PO Q OTHER DAY PRN (Reason: Sleep) perphenazine 4 mg tablet 4 mg PO BID
[2022-01-13 22:38] LABS: Hematocrit 34.3 % (42.0-52.0); Imm Gran Abs Auto 0.02 X10*3/uL (0.00-0.03); Imm Gran Pct Auto 0.3 % (0.0-0.4); MANUAL DIFF FLAG SCAN; Monocytes Absolute Auto 0.8 X10*3/uL (0.1-1.2); Monocytes Percent Auto 10.4 % (2-11); PLT CLUMP 1; Red Cell Distribution Width 13.1 % (11.0-16.0); SCAN SMEAR FLAG 1
[2022-01-13 22:40] LABS: Basophils Percent Auto 0.5 % (0-2); Eosinophils Absolute Auto 0.1 X10*3/uL (0.0-0.4); Eosinophils Percent Auto 1.1 % (0-4); Hemoglobin 12.6 g/dl (14.0-18.0); Lymphocytes Percent Auto 26.7 % (20-40); Mean Corpuscular HGB Conc 36.7 g/dl (31.0-36.0); Mean Corpuscular Volume 92.5 fL (80.0-98.0); Mean Platelet Volume 11.8 fL (9.4-12.4); Neutrophils Absolute Auto 4.6 x10*3/uL (2.0-8.3); Red Blood Count 3.71 X10*6/uL (4.60-5.80)
[2022-01-13 22:47] LABS: Platelet Count 104 X10*3/uL (160-400); White Blood Count 7.5 X10*3/uL (4.8-10.8)
[2022-01-13 22:53] LABS: Alanine Aminotransferase 29 U/L (0-40); Albumin Level 4.1 g/dL (3.5-5.0); Alkaline Phosphatase 77 U/L (39-117); Anion Gap 13 (12-20); Aspartate Amino Transferase 21 U/L (5-37); Blood Urea Nitrogen 15 mg/dL (9-16); Calcium 9.9 mg/dL (8.4-10.2); Carbon Dioxide 28 mmol/L (22-29); Chloride 102 mmol/L (96-108); Creatinine Clr Calc Pharmacy 117.9; Estimated Glomerular Filt Rate > 60; Glucose Random 105 mg/dL (60-115); Potassium 4.7 mmol/L (3.3-5.1); Sodium 138 mmol/L (135-145); Total Protein 6.6 g/dL (6.5-8.0)
[2022-01-13 22:57] LABS: SLIDE REVIEW VERIFIED
[2022-01-13 22:59] LABS: Troponin-I High Sensitivity < 3.5 ng/L (<3.5-35.0)
[2022-01-13] MEDS: Acetaminophen 325 MG TABLET 650 MG PO (23:34)
--- NOTE | 2022-01-14 00:52 | PC.NURSE ---
I assumed nursing care of Williams upon his arrival to bed 3 from EMS. Williams arrived for evaluation of back pain that he refers to as liver pain.' No nausea, no vomiting, no shortness of breath. He did state that he experienced chest pain at the onset of the back pain, but denies further chest pain on arrival to ED. Williams is alert and oriented x 3 with a flat affect. On arrival he immediately admits to being a schizophrenic . He denies SI. Denies HI. He is calm and cooperative and has avoidant eye contact. Pt is prepared to be discharged at this time, however we are waiting to hear back from nursing food and nutrition supervisor regarding a LYFT transport to his home. The pt is unable to obtain transport from any family or friends.
== END 2022-01-14 06:56 | disposition home or self-care (01) ==
PROVIDERS: Emergency Provider Internal Medicine; PCP Internal Medicine
DX: R07.9 Chest pain, unspecified (principal); F41.9 Anxiety disorder, unspecified; I10 Essential (primary) hypertension; E11.9 Type 2 diabetes mellitus without complications; E78.5 Hyperlipidemia, unspecified; E78.00 Pure hypercholesterolemia, unspecified; F17.210 Nicotine dependence, cigarettes, uncomplicated; Z79.4 Long term (current) use of insulin; Z79.899 Other long term (current) drug therapy; Z79.02 Long term (current) use of antithrombotics/antiplatelets; Z79.82 Long term (current) use of aspirin
CPT/HCPCS: 36415; 80053; 84484; 85025; 93005; 99283; 99284

== ENCOUNTER 2022-02-26 19:54 | Emergency (ER) | payer OTHER, SELFPAY ==
--- NOTE | ~2022-02-26 | XR_ITS ---
EXAMINATION: XR CHEST CLINICAL INFORMATION: Cough COMPARISON: 07/11/2021 TECHNIQUE: 2 views of the chest were obtained. FINDINGS: No significant abnormality is noted involving the heart, lungs, mediastinum, bony thorax or soft tissues. XR/XR chest 2V IMPRESSION: Unremarkable examination.
--- NOTE | 2022-02-26 20:05 | ED_ITS ---
HPI - Psych General Chief Complaint: Psychiatric Symptoms Stated Complaint: depression Time Seen by Provider: 02/26/22 20:05 Source: patient and EMS Mode of arrival: EMS Limitations: no limitations History of Present Illness HPI Narrative: 56-year-old male presents via EMS for crisis evaluation. Patient states that he is depressed, feels hopeless, and is struggling to cope with his new living situation. He was recently moved from skilled nursing to an independent living situation. Does not report any physical complaints at this time. MD complaint: feels depressed and anxiety Onset (ago): week(s) Duration: constant History of same: Yes Relieving factors: none Context: significant life stressor Associated psychiatric symptoms: depression Associated symptoms: denies other symptoms Treatments prior to arrival: none Related Data Home Medications Medication Instructions Recorded Confirmed blood sugar diagnostic #10 ea 03/15/20 01/16/22 lancets 28 gauge #100 ea 03/15/20 01/16/22 atorvastatin 10 mg tablet 1 tab PO DAILY 02/26/22 02/26/22 cholecalciferol (vitamin D3) 25 1 tab PO DAILY 02/26/22 02/26/22 mcg (1,000 unit) tablet (Vitamin D3) clonazepam 0.5 mg tablet 1 tab PO BID PRN Anxiety 02/26/22 02/26/22 famotidine 20 mg tablet 20 mg PO BID 02/26/22 02/26/22 insulin glargine 100 unit/mL (3 48 unit subcut BEDTIME 02/26/22 02/26/22 mL) subcutaneous pen (Lantus Solostar U-100 Insulin) lisinopril 5 mg tablet 1 tab PO DAILY 02/26/22 02/26/22 perphenazine 4 mg tablet 1 tab PO BID 02/26/22 02/26/22 perphenazine 8 mg tablet 8 mg PO TID 02/26/22 02/26/22 semaglutide 0.25 mg or 0.5 mg (2 0.25 mg subcut QWEEK 02/26/22 02/26/22 mg/1.5 mL) subcutaneous pen injector (Ozempic) sennosides 8.6 mg tablet (senna) 2 tab PO DAILY constipation 02/26/22 02/26/22 tizanidine 4 mg tablet 1 tab PO BEDTIME low back pain 02/26/22 02/26/22 trazodone 100 mg tablet 1 tab PO BEDTIME 02/26/22 02/26/22 Previous Rx's Medication Instructions Recorded pen needle, diabetic 31 gauge x #1,200 ea 03/12/21 5/ lactulose 10 gram/15 mL oral 15 ml PO BEDTIME PRN constipation 05/15/21 solution #237 mL acetaminophen 500 mg tablet 500 mg PO Q6H PRN fever or pain 30 07/15/21 (Tylenol Extra Strength) days #120 tabs QUAD CANE #1 ea 07/31/21 aspirin 81 mg chewable tablet 1 tab PO QAM 90 days #90 tabs 10/01/21 levothyroxine 50 mcg tablet 50 mcg PO QAM #30 tabs 12/30/21 omeprazole 20 mg capsule,delayed 20 mg PO DAILY #90 caps 12/31/21 release ibuprofen 600 mg tablet 600 mg PO TID PRN for pain #90 tabs 01/12/22 pen needle, diabetic 33 gauge x #100 ea 01/21/2205/07 (Comfort EZ Pen Sterling) Allergies Allergy/AdvReac Type Severity Reaction Status Date / Time clozapine [From Clozaril] Allergy Mild ringing in Verified 01/16/22 09:42 ears, pain, leukopenia trifluoperazine Allergy Tongue Verified 01/16/22 09:42 [From Stelazine] Swelling Review of Systems Review of Systems: Constitutional: No Fever, No Chills ENT/Mouth: No Ear Pain, No Nasal Congestion, No sore throat Eyes: No Eye Pain, No Swelling, No Redness Cardiovascular: No Chest Pain, No SOB Respiratory: No Cough, No Sputum, No Dyspnea Gastrointestinal: No Nausea, No Vomiting, No Diarrhea, No Hematochezia, No Melena Genitourinary: No Dysuria, No Urinary Frequency, No Hematuria Musculoskeletal: No Myalgias Skin: No Skin Lesions, No rash Neuro: No Weakness, No Numbness, No Paresthesias, No Dizziness, No Headache Psych: positive Anxiety, positive Depression, no SI/HI Heme/Lymph: No Lymphadenopathy Endocrine: No Polyuria, No Polydipsia Yes all other systems are reviewed and are negative [facility] Past Medical History Attestation statement: The following information was validated with the patient. Source: old records reviewed Medical History Acquired hypothyroidism Anxiety Benign essential hypertension Constipation Diabetes mellitus Dyspnea GERD without esophagitis Hyperlipidemia Hypertension, essential Hypothyroidism Insulin dependent diabetes mellitus Lung nodule Midline low back pain Nicotine dependence, cigarettes, uncomplicated Nocturnal enuresis Obesity (BMI 30-39.9) Obesity (BMI 30-39.9) Obesity (BMI 35.0-39.9 without comorbidity) Obstructive sleep apnea On beta evaristo at home Pure hypercholesterolemia Schizoaffective disorder Schizophrenia Screening for STD (sexually transmitted disease) Smoker Surgical History H/O colonoscopy (~10/12/20) History of left inguinal hernia repair Hx of facial fracture repair Family History Family History Father CVD (cardiovascular disease) Mother CVD (cardiovascular disease) Diabetes Sister Colon polyps Social History Social History Housing: Other Housing Other:: [facility] Alcohol intake: never Patient Tobacco Use Status: Current everyday Tobacco user Tobacco use type: Cigar Cigarettes Per Day: 12 Years Smoked: 38 e-Cigarette/Vaping Use: Never Used Second Hand Smoke Exposure: Yes Advance Directives: No Advance Directives Information Provided: No service: No Current occupational status: disabled Cognitive needs: No Hearing needs: No Vision needs: No Physical Exam Vital Signs: Vital Signs: Last Vital Signs Temp 98.0 F 02/26/22 23:46 Pulse 77 02/26/22 23:46 Resp 18 02/26/22 23:46 BP 115/73 02/26/22 23:46 Pulse Ox 97 02/26/22 23:46 O2 Del Method 02/26/22 23:46 BMI result Body Mass Index 29.2 Appearance: Alert. Oriented X3. Moderate emotional distress. Eyes: Pupils equal, round and reactive to light. Sclera nonicteric. ENT: Pharynx normal. Neck: Normal inspection. Neck supple. CVS: Normal heart rate and rhythm. Pulses normal. Respiratory: No respiratory distress. Breath sounds normal. Abdomen: Soft and nontender. Skin: Skin warm and dry. Normal skin color. Normal skin turgor. Extremities: No lower extremity edema. Gait well-balanced well coordinated. Neuro: No motor deficit. No sensory deficit. Cranial nerves 2-12 intact. Course Course Course Narrative: 56-year-old male with past medical history of schizophrenia, obesity, hypothyroidism, insulin-dependent diabetic, hypertension, hyperlipidemia, with JUANITA presents for evaluation for worsening depression and hopelessness. Patient is short with his answers, states that he is not interested in speaking to me. Does not report any physical complaints at this time. Patient did take his medications today as directed. Will order labs, and N consult. 22:00 Mag 1.5, patient does take magnesium daily, at this time patient does not want to take any medications. 23:44 nursing reports patient is coughing, will order Tessalon Perles and chest x-ray. 00:20 chest x-rays negative for acute findings requiring emergent intervention. Patient is medically cleared. 00:40 BHN consult complete, plan is for re-evaluation in the morning. I did discuss my concerns with the N, I feel that this patient should be an inpatient bed search as he has had significant life stressor. Physician observation started at this time MDM - Psych Differential Diagnosis Differential diagnosis: Likely acute psychosis, depression, drug-induced psychotic disorder, acute anxiety, post-traumatic stress disorder and schizoaffective disorder Medical Records Attestation: I reviewed the patient's medical records. Lab Data Attestation: I reviewed the patient's lab results. Result diagrams: 02/26/22 21:16 02/26/22 21:16 Labs: Lab Results 02/26/22 02/26/22 02/26/22 Range/Units 20:11 20:29 20:49 WBC (4.8-10.8) X10*3/uL RBC (4.60-5.80) X10*6/uL Hgb (14.0-18.0) g/dl Hct (42.0-52.0) % MCV (80.0-98.0) fL MCH (27.0-33.0) pg MCHC (31.0-36.0) g/dl RDW (11.0-16.0) % Plt Count (160-400) X10*3/uL MPV (9.4-12.4) fL Immature Gran % (Auto) (0.0-0.4) % Neut % (Auto) (45-73) % Lymph % (Auto) (20-40) % Grundy % (Auto) (2-11) % Eos % (Auto) (0-4) % Baso % (Auto) (0-2) % Lymph # (Auto) (1.2-4.9) X10*3/uL Grundy # (Auto) (0.1-1.2) X10*3/uL Eos # (Auto) (0.0-0.4) X10*3/uL Baso # (Auto) (0.0-0.2) X10*3/uL Abs Immat Gran (auto) (0.00-0.03) X10*3/uL Absolute Neuts (auto) (2.0-8.3) x10*3/uL Absolute Nucleated RBC (0.0-0.012) X10*3/uL Nucleated RBC % (auto) (0.0-0.2) /100WBC Sodium (135-145) mmol/L Potassium (3.3-5.1) mmol/L Chloride (96-108) mmol/L Carbon Dioxide (22-29) mmol/L Anion Gap (12-20) BUN (9-16) mg/dL Creatinine (0.5-1.4) mg/dL Estim Creat Clear Calc Estimated GFR POC Glucose 189 H (60-115) mg/dL Random Glucose (60-115) mg/dL Calcium (8.4-10.2) mg/dL Magnesium (1.6-2.6) mg/dL Total Bilirubin (0.0-1.0) mg/dL AST (5-37) U/L ALT (0-40) U/L Alkaline Phosphatase (39-117) U/L Total Protein (6.5-8.0) g/dL Albumin (3.5-5.0) g/dL TSH (0.32-4.0) uIU/mL Urine Color Yellow Urine Appearance Cloudy Urine pH 5.5 (5.0-9.0) Ur Specific Union 1.010 (1.005-1.025) Urine Protein Negative (Neg-Trace) mg/dL Urine Glucose (UA) Negative (Negative) mg/dL Urine Ketones Negative (Negative) mg/dL Urine Blood Negative (Negative) Urine Nitrite Negative (Negative) Ur Leukocyte Esterase Negative (Negative) Urine Opiates Screen (Not Detect) Urine Fentanyl Screen (Not Detect) Ur Barbiturates Screen (Not Detect) Ur Phencyclidine Scrn (Not Detect) Ur Amphetamines Screen (Not Detect) U Benzodiazepines Scrn (Not Detect) Urine Cocaine Screen (Not Detect) U Marijuana (THC) Screen (Not Detect) Ethyl Alcohol mg/dL Acetone, Qual (Negative) COVID-19 (JIL) Negative (Negative) COVID-19 Clin Com See Note 02/26/22 02/26/22 02/26/22 Range/Units 20:49 21:16 21:16 WBC 6.4 (4.8-10.8) X10*3/uL RBC 3.60 L (4.60-5.80) X10*6/uL Hgb 12.3 L (14.0-18.0) g/dl Hct 34.1 L (42.0-52.0) % MCV 94.7 (80.0-98.0) fL MCH 34.2 H (27.0-33.0) pg MCHC 36.1 H (31.0-36.0) g/dl RDW 13.0 (11.0-16.0) % Plt Count 92 L (160-400) X10*3/uL MPV 10.2 (9.4-12.4) fL Immature Gran % (Auto) 0.3 (0.0-0.4) % Neut % (Auto) 54.3 (45-73) % Lymph % (Auto) 33.1 (20-40) % Grundy % (Auto) 10.1 (2-11) % Eos % (Auto) 1.4 (0-4) % Baso % (Auto) 0.8 (0-2) % Lymph # (Auto) 2.1 (1.2-4.9) X10*3/uL Grundy # (Auto) 0.7 (0.1-1.2) X10*3/uL Eos # (Auto) 0.1 (0.0-0.4) X10*3/uL Baso # (Auto) 0.1 (0.0-0.2) X10*3/uL Abs Immat Gran (auto) 0.02 (0.00-0.03) X10*3/uL Absolute Neuts (auto) 3.5 (2.0-8.3) x10*3/uL Absolute Nucleated RBC 0.000 (0.0-0.012) X10*3/uL Nucleated RBC % (auto) 0.0 (0.0-0.2) /100WBC Sodium 139 (135-145) mmol/L Potassium 4.7 (3.3-5.1) mmol/L Chloride 103 (96-108) mmol/L Carbon Dioxide 26 (22-29) mmol/L Anion Gap 15 (12-20) BUN 20 H (9-16) mg/dL Creatinine 0.94 (0.5-1.4) mg/dL Estim Creat Clear Calc 99.1 Estimated GFR > 60 POC Glucose (60-115) mg/dL Random Glucose 227 H D (60-115) mg/dL Calcium 9.5 (8.4-10.2) mg/dL Magnesium 1.5 L (1.6-2.6) mg/dL Total Bilirubin 0.8 (0.0-1.0) mg/dL AST 16 (5-37) U/L ALT 21 (0-40) U/L Alkaline Phosphatase 80 (39-117) U/L Total Protein 6.2 L (6.5-8.0) g/dL Albumin 4.0 (3.5-5.0) g/dL TSH 1.28 (0.32-4.0) uIU/mL Urine Color Urine Appearance Urine pH (5.0-9.0) Ur Specific Union (1.005-1.025) Urine Protein (Neg-Trace) mg/dL Urine Glucose (UA) (Negative) mg/dL Urine Ketones (Negative) mg/dL Urine Blood (Negative) Urine Nitrite (Negative) Ur Leukocyte Esterase (Negative) Urine Opiates Screen Not Detected (Not Detect) Urine Fentanyl Screen Not Detected (Not Detect) Ur Barbiturates Screen Not Detected (Not Detect) Ur Phencyclidine Scrn Not Detected (Not Detect) Ur Amphetamines Screen Not Detected (Not Detect) U Benzodiazepines Scrn Not Detected (Not Detect) Urine Cocaine Screen Not Detected (Not Detect) U Marijuana (THC) Screen Not Detected (Not Detect) Ethyl Alcohol < 10 mg/dL Acetone, Qual (Negative) COVID-19 (JIL) (Negative) COVID-19 Clin Com 02/26/22 02/26/22 02/26/22 Range/Units 21:16 21:16 21:16 WBC (4.8-10.8) X10*3/uL RBC (4.60-5.80) X10*6/uL Hgb (14.0-18.0) g/dl Hct (42.0-52.0) % MCV (80.0-98.0) fL MCH (27.0-33.0) pg MCHC (31.0-36.0) g/dl RDW (11.0-16.0) % Plt Count (160-400) X10*3/uL MPV (9.4-12.4) fL Immature Gran % (Auto) (0.0-0.4) % Neut % (Auto) (45-73) % Lymph % (Auto) (20-40) % Grundy % (Auto) (2-11) % Eos % (Auto) (0-4) % Baso % (Auto) (0-2) % Lymph # (Auto) (1.2-4.9) X10*3/uL Grundy # (Auto) (0.1-1.2) X10*3/uL Eos # (Auto) (0.0-0.4) X10*3/uL Baso # (Auto) (0.0-0.2) X10*3/uL Abs Immat Gran (auto) (0.00-0.03) X10*3/uL Absolute Neuts (auto) (2.0-8.3) x10*3/uL Absolute Nucleated RBC (0.0-0.012) X10*3/uL Nucleated RBC % (auto) (0.0-0.2) /100WBC Sodium (135-145) mmol/L Potassium (3.3-5.1) mmol/L Chloride (96-108) mmol/L Carbon Dioxide (22-29) mmol/L Anion Gap (12-20) BUN (9-16) mg/dL Creatinine (0.5-1.4) mg/dL Estim Creat Clear Calc Estimated GFR POC Glucose (60-115) mg/dL Random Glucose (60-115) mg/dL Calcium (8.4-10.2) mg/dL Magnesium (1.6-2.6) mg/dL Total Bilirubin (0.0-1.0) mg/dL AST (5-37) U/L ALT (0-40) U/L Alkaline Phosphatase (39-117) U/L Total Protein (6.5-8.0) g/dL Albumin (3.5-5.0) g/dL TSH Cancelled (0.32-4.0) uIU/mL Urine Color Urine Appearance Urine pH (5.0-9.0) Ur Specific Union (1.005-1.025) Urine Protein (Neg-Trace) mg/dL Urine Glucose (UA) (Negative) mg/dL Urine Ketones (Negative) mg/dL Urine Blood (Negative) Urine Nitrite (Negative) Ur Leukocyte Esterase (Negative) Urine Opiates Screen (Not Detect) Urine Fentanyl Screen (Not Detect) Ur Barbiturates Screen (Not Detect) Ur Phencyclidine Scrn (Not Detect) Ur Amphetamines Screen (Not Detect) U Benzodiazepines Scrn (Not Detect) Urine Cocaine Screen (Not Detect) U Marijuana (THC) Screen (Not Detect) Ethyl Alcohol Cancelled mg/dL Acetone, Qual Negative (Negative) COVID-19 (JIL) (Negative) COVID-19 Clin Com Imaging Data Chest x-ray: Attestation: I personally reviewed and interpreted this imaging study as follows: Radiologist's impression: EXAMINATION: XR CHEST CLINICAL INFORMATION: Cough COMPARISON: 07/11/2021 TECHNIQUE: 2 views of the chest were obtained. FINDINGS: No significant abnormality is noted involving the heart, lungs, mediastinum, bony thorax or soft tissues. XR/XR chest 2V IMPRESSION: Unremarkable examination. Discharge Plan Discharge Clinical Impression: Insulin dependent diabetes mellitus, Schizoaffective disorder, Depression, Acute anxiety Patient Disposition: Still a Patient Prescriptions: No Action (DME) pen needle, diabetic 31 gauge x 5/16 needle See Rx Instructions .ROUTE .MEDSUPPLY Qty: 1200 0RF Rx Instructions: Use 4 times daily lactulose 10 gram/15 mL solution 15 ml PO BEDTIME PRN (Reason: constipation) Qty: 237 2RF acetaminophen [Tylenol Extra Strength] 500 mg tablet 500 mg PO Q6H PRN (Reason: fever or pain) 30 Days Qty: 120 2RF Rx Instructions: TAKE 1 TABLET BY MOUTH EVERY 6 HOURS NEEDED. (NO MORE THAN 4 TABLETS A DAY) aspirin 81 mg tablet,chewable 1 tab PO QAM 90 Days Qty: 90 3RF levothyroxine 50 mcg tablet 50 mcg PO QAM Qty: 30 3RF omeprazole 20 mg capsule,delayed release(DR/EC) 20 mg PO DAILY Qty: 90 3RF ibuprofen 600 mg tablet 600 mg PO TID PRN (Reason: for pain) Qty: 90 0RF (DME) Comfort EZ Pen Sterling 33 gauge x 1/4 needle See Rx Instructions .ROUTE .MEDSUPPLY Qty: 100 12RF Rx Instructions: As directed sennosides [senna] 8.6 mg tablet 2 tab PO DAILY atorvastatin 10 mg tablet 1 tab PO DAILY tizanidine 4 mg tablet 1 tab PO BEDTIME clonazepam 0.5 mg tablet 1 tab PO BID PRN (Reason: Anxiety) famotidine 20 mg tablet 20 mg PO BID trazodone 100 mg tablet 1 tab PO BEDTIME perphenazine 4 mg tablet 1 tab PO BID perphenazine 8 mg tablet 8 mg PO TID cholecalciferol (vitamin D3) [Vitamin D3] 25 mcg (1,000 unit) tablet 1 tab PO DAILY insulin glargine [Lantus Solostar U-100 Insulin] 100 unit/mL (3 mL) insulin pen 48 unit subcut BEDTIME Ozempic 0.25 mg or 0.5 mg(2 mg/1.5 mL) pen injector 0.25 mg subcut QWEEK Rx Instructions: Thursday lisinopril 5 mg tablet 1 tab PO DAILY (DME) QUAD CANE See Rx Instructions .Route .MEDSUPPLY Qty: 1 0RF Rx Instructions: As directed (DME) blood sugar diagnostic Strip See Rx Instructions Not Applicable .MEDSUPPLY Qty: 10 Rx Instructions: As directed (DME) lancets 28 gauge misc See Rx Instructions topical .MEDSUPPLY Qty: 100 Rx Instructions: As directed
[2022-02-26 20:15] VITALS: BP 120/73; PULSE 89; RESP 18; TEMP 36.6; O2SAT 98; BMI 29.2
--- OUTSIDE RECORDS SUMMARY | 2022-02-26 20:24 | XMS_ITS | Continuity of Care Document ---
:1965 Author Organization [facility] Address [address] [place] [phone] Care Team Providers Name Role Phone Mando Turpin MD Primary Care Physician Encounter [facility] Date(s): 09/02/21 - 10/02/21 [facility] [address] [place] [phone] Allergies, Adverse Reactions, Alerts Substance Reaction Severity Status metformin1 DIARRHEA Active Clozaril Active 1Michelle, Managed Services Consultant, states the patient has been taking Metformin with no side effects. We will cancel this as an allergy in his profile to lessen confusion in the future. Medications Abilify 10 mg oral tablet 1 tablet = 10 mg, By Mouth, Daily, 0 Refills, Maintenance Start Date: 03/23/12 Status: OrderedAlcohol Pads See Instructions, # 150 each, Refills 11, Tot. Refills 11, Maintenance, use to clean finger tips forglucose monitoring 5x/day DxE11.9, 09/20/20 12:50:00 EDT, E11.65, Compound, 176, cm, 12/16/19 9:46:00 EDT, Height Start Date: 09/20/20 Status: OrderedAlcohol Wipes See Instructions, # 1 box, Refills 1, Tot. Refills 1, use 3x/day for skin prep, 07/23/12 11:22:03 Start Date: 07/23/12 Status: OrderedAlcohol Wipes See Instructions, # 100 application, Refills 11, Tot. Refills 11, Maintenance, use 3x/day for skin prep, 12/30/10 10:36:36 Start Date: 12/30/10 Status: Orderedaspirin 81 mg oral enteric coated tablet 1 tablet = 81 mg, By Mouth, Daily, # 100 tablet, 0 Refills, Maintenance, EC Tablet Start Date: 06/10/10 Status: OrderedClozaril 100 mg oral tablet 1 tablet = 100 mg, By Mouth, 3 times a day, 0 Refills, Maintenance Start Date: 03/23/12 Status: OrderedFlonase 1 sprays, Daily, 0 Refills, Maintenance Start Date: 03/23/12 Status: OrderedFreestyle alo 2 14-day sensors Freestyle alo 2 14-day sensors, See Instructions, # 2 each, Refills 11, Tot. Refills 11, Maintenance, Use to check BG up to 5 times/day, change every 14 days, wear on the back of the upper arm, 11/09/20 12:31:00 EDT, dx10.65, Supply Start Date: 11/09/20 Status: OrderedFreestyle alo 2 reader Freestyle alo 2 reader, See Instructions, # 1 each, Refills 0, Tot. Refills 0, Maintenance, Use tocheck BG up to 5 times/day, 11/09/20 12:31:00 EDT, Supply Start Date: 11/09/20 Status: OrderedFreestyle Lite Lancets See Instructions, # 150 each, Refills 11, Tot. Refills 11, Maintenance, test blood sugar 5x day, DX E11.9,, 01/21/21 13:09:00 EDT, Compound, 176, cm, 10/18/20 9:49:00 EDT, Height Start Date: 01/21/21 Status: OrderedFreestyle Lite Monitor See Instructions, # 1 kit, Refills 0, Tot. Refills 0, Maintenance, DX E11.9, 07/04/20 13:50:00 EST, E11.9, Compound, 176, cm, 12/16/19 9:46:00 EDT, Height Start Date: 07/04/20 Status: OrderedFreestyle Lite Test Strips See Instructions, # 400 each, Refills 3, Tot. Refills 3, Maintenance, test blood sugar 4x day, DX E11.9, 01/28/21 15:32:00 EDT, E11.65, 90 day supply, Compound, 176, cm, 10/18/20 9:49:00 EDT, Height Start Date: 01/28/21 Status: OrderedHaldol Tablet Maintenance, 03/23/12 14:49:50 Start Date: 03/23/12 Status: OrderedInsulin Syringe, BD Ultra-Fine 1 cc 31 G x 8 mm (516in) See Instructions, # 400 each, Refills 5, Tot. Refills 5, Maintenance, 4 x a day injection, 90 day supply, 01/05/19 11:46:29 EDT, e11.65, Compound Start Date: 01/05/19 Status: OrderedInsulin Syringe, BD Ultra-Fine 1 cc 31 G x 8 mm (16in) See Instructions, # 360 each, Refills 3, Tot. Refills 3, Maintenance, USE 4 PER DAY, 12/31/11 15:02:38 Start Date: 12/31/11 Status: OrderedKlonopin 1 mg oral tablet 1 tablet = 1 mg, By Mouth, 3 times a day, 0 Refills, Maintenance Start Date: 03/23/12 Status: OrderedLamictal 200 mg oral tablet 1 tablet = 200 mg, By Mouth, 2 times a day, 0 Refills, Maintenance Start Date: 03/23/12 Status: OrderedLantus Solostar Pen 100 units/mL subcutaneous solution = 48 units, Subcutaneous Infusion, Daily, # 10 mL, 11 Refills, Maintenance, 10/21/20 6:23:00 EDT, [facility], E11.9, 176, cm, 10/18/20 9:49:00 EDT, Height Start Date: 10/21/20 Status: OrderedLevothyroxine Tablet 50, mcg, By Mouth, Daily, 0, 0, 12/02/07 16:54:52, Print NUHA Number, [id number], Constant Indicator Start Date: 12/02/07 Status: Orderedlithium 300 mg oral tablet 1 tablet = 300 mg, By Mouth, 2 times a day, # 60 tablet, 1 Refills, Maintenance, Tablet Start Date: 06/10/10 Status: OrderedMiraLax = 17 Gm, By Mouth, Daily, 0 Refills, Maintenance Start Date: 03/23/12 Status: OrderedMotrin IB 200 mg oral tablet 2 tablet = 400 mg, By Mouth, Every 4 hours, PRN for fever, # 120 tablet, 0 Refills, Maintenance, Tablet Start Date: 03/23/12 Status: OrderedMulti-Day Plus Minerals 1, tablet, By Mouth, Daily, 0, 0, 12/02/07 16:56:34, Print NUHA Number, [id number], Constant Indicator Start Date: 12/02/07 Status: OrderedOne Touch UltraSoft Lancets See Instructions, # 300 each, Refills 0, Tot. Refills 0, Maintenance, TEST BS 2- 3 TIMES PER DAY, 05/11/12 9:49:52 Start Date: 05/11/12 Status: OrderedOzempic (0.25 mg or 0.5 mg dose) 2 mg/1.5 mL subcutaneous solution = 0.5 mg, Subcutaneous Injection, Every week, # 1.5 mL, 0 Refills, Maintenance, 08/30/20 16:15:00 EDT, Solution, [facility], Partial fill upon patient request if the prescription is fora schedule II opioid drug., 176, cm, 12/16/19 9:46:00... Start Date: 08/30/20 Status: OrderedOzempic 2 mg/1.5 mL (0.25 mg or 0.5 mg dose) subcutaneous solution = 0.5 mg, Subcutaneous Infusion, Every week, # 4 each, 11 Refills, Maintenance, 10/08/20 18:11:00 EDT, [facility], Partial fill upon patient request if the prescription is for a schedule II opioid drug., 0.5 mg Subcutaneous Infusion Every... Start Date: 10/08/20 Status: OrderedPen [place], 31 G x 8 mm BD Ultra Fine III See Instructions, # 150 each, Refills 11, Tot. Refills 11, Maintenance, T2DM E11.9 for injecting insulin 4x daily, 12/17/19 4:07:00 EDT, Compound, 176, cm, 12/16/19 9:46:00 EDT, Height Start Date: 12/17/19 Status: OrderedPepcid Tablet 40, mg, 2 times a day, 0, 0, 12/02/07 16:57:18, Print NUHA Number, [id number], Constant Indicator Start Date: 12/02/07 Status: OrderedPLASTIC URINAL PLASTIC URINAL, See Instructions, # 1 each, Refills 0, Tot. Refills 0, Maintenance, USE DIRECTED AT HOME, 01/25/10 11:17:50 Start Date: 01/25/10 Status: Orderedsimvastatin 20 mg oral tablet 1 tablet = 20 mg, By Mouth, Daily at bedtime, # 90 each, 3 Refills Start Date: 02/26/09 Stop Date: 03/27/09 Status: OrderedTylenol Caplet = 650 mg, By Mouth, Every 4 hours, 0 Refills, Maintenance Start Date: 03/23/12 Status: OrderedVistaril pamoate 25 mg oral capsule 1 capsule = 25 mg, By Mouth, 4 times a day, 0 Refills, Maintenance Start Date: 03/23/12 Status: Ordered Problem List Condition Effective Dates Status Health Status Informant Bipolar(Confirmed) 07/13/08 Active Diabetes mellitus type 2(Confirmed) 07/13/00 Active Hypertension(Confirmed) Active Hypothyroidism(Confirmed) Active Obesity(Confirmed) Active Schizophrenia(Confirmed) Active
--- OUTSIDE RECORDS SUMMARY | 2022-02-26 20:24 | XMS_ITS | Continuity of Care Document ---
:1965 Author Organization [facility] Address [address] [place] [phone]- Care Team Providers Name Role Phone Mando Turpin MD Primary Care Physician Encounter [facility] [place] Date(s): 01/13/22 - 02/12/22 [facility] Pediatric Endocr[facility]ology [address] [place] [phone]- Allergies, Adverse Reactions, Alerts Substance Reaction Severity Status metformin1 DIARRHEA Active Clozaril Active 1Michelle, Studio Receptionist, states the patient has been taking Metformin [...] test blood sugar 4x day, DX E11.9, 12/03/21 17:56:00 EDT, E11.65, 90 day supply, Compound, 176, cm, 01/29/21 16:28:00 EDT, Height Start Date: 12/03/21 Status: OrderedHaldol Tablet Maintenance, 03/23/12 14:49:50 Start [...] 0, 0, 12/02/07 16:54:52, Print NUHA Number, [id number], Constant Indicator Start Date: 12/02/07 Status: Orderedlithium [...] 0, 0, 12/02/07 16:56:34, Print NUHA Number, [id number], Constant Indicator Start Date: 12/02/07 Status: OrderedOne [...] Infusion Every... Start Date: 10/08/20 Status: OrderedPen [place], 31 G x 8 mm BD Ultra Fine III See Instructions, # 150 each, Refills 11, Tot. Refills 11, Maintenance, T2DM E11.9 for injecting insulin 4x daily, 12/17/19 4:07:00 EDT, Compound, 176, cm, 12/16/19 9:46:00 EDT, Height Start Date: 12/17/19 Status: OrderedPepcid Tablet 40, mg, 2 times a day, 0, 0, 12/02/07 16:57:18, Print NUHA Number, [id number], Constant Indicator Start Date: 12/02/07 Status: OrderedPLASTIC [...] Date: 03/23/12 Status: Ordered Problem List Condition Confirmation Course Effective Dates Status Health I nformant Status Bipolar Confirmed 07/13/08 Active Diabetes mellitus Confirmed 07/13/00 Active type 2 Hypertension Confirmed Active Hypothyroidism Confirmed Active Obesity Confirmed Active Schizophrenia Confirmed Active Patient Care team information PersonnelName: Papi GONSALVES, Mando Bearden Address: Address: [address] [place] [address] [address] [place] [id number]
--- OUTSIDE RECORDS SUMMARY | 2022-02-26 20:24 | XMS_ITS | Continuity of Care Document ---
:1965 Author Organization [facility]ology and D [facility] Address [address] [place] [phone]- Care Team Providers Name Role Phone Mando Turpin MD Primary Care Physician [place] [facility] [place]20 [facility] Endocrinology and Diabetes [address] [place] [id number] Allergies, Adverse Reactions, Alerts Substance Reaction Severity Status metformin1 DIARRHEA Active Clozaril Active 1Michelle, Sport Shoe Spike Assembler, states the patient has been taking Metformin [...] test blood sugar 5x day, DX E11.9,, 12/17/19 4:07:00 EDT, Compound, 176, cm, 12/16/19 9:46:00 EDT, Height Start Date: 12/17/19 Status: OrderedFreestyle Lite Monitor See Instructions, # 1 kit, Refills 0, Tot. Refills 0, Maintenance, DX E11.9, 07/04/20 13:50:00 EST, E11.9, Compound, 176, cm, 12/16/19 9:46:00 EDT, Height Start Date: 07/04/20 Status: OrderedFreestyle Lite Test Strips See Instructions, # 400 each, Refills 5, Tot. Refills 5, Maintenance, test blood sugar 4x day, DX E11.9, 12/17/19 4:08:00 EDT, E11.65, 90 day supply, Compound, 176, cm, 12/16/19 9:46:00 EDT, Height Start Date: 12/17/19 Status: OrderedHaldol Tablet Maintenance, 03/23/12 14:49:50 Start [...] x 8 mm (516in) See Instructions, # 360 each, Refills 3, [...] 0, 0, 12/02/07 16:54:52, Print NUHA Number, [id number], Constant Indicator Start Date: 12/02/07 Status: Orderedlithium [...] 0, 0, 12/02/07 16:56:34, Print NUHA Number, [id number], Constant Indicator Start Date: 12/02/07 Status: OrderedOne [...] each, 11 Refills, Maintenance, 10/08/20 18:11:00 EDT, [facility], Partial fill upon patient request if the prescription is for a schedule II opioid drug., 0.5 mg Subcutaneous Infusion Every... Start Date: 10/08/20 Status: OrderedPen [place], 31 G x 8 mm BD Ultra Fine III See Instructions, # 150 each, Refills 11, Tot. Refills 11, Maintenance, T2DM E11.9 for injecting insulin 4x daily, 12/17/19 4:07:00 EDT, Compound, 176, cm, 12/16/19 9:46:00 EDT, Height Start Date: 12/17/19 Status: OrderedPepcid Tablet 40, mg, 2 times a day, 0, 0, 12/02/07 16:57:18, Print NUHA Number, [id number], Constant Indicator Start Date: 12/02/07 Status: OrderedPLASTIC [...]
--- OUTSIDE RECORDS SUMMARY | 2022-02-26 20:24 | XMS_ITS | Continuity of Care Document ---
:1965 Author Organization [facility] Address [address] [place] [address]- Care Team Providers Name Role Phone Papi GONSALVES, Mando Bearden Primary Care Physician [place] [facility] [place] - 01/20/20 [facility] Endocrinology and Diabetes [address] [place] [phone]- [facility] Allergies, Adverse Reactions, Alerts Substance Reaction Severity Status metformin1 DIARRHEA Active 1Michelle, Labor And Delivery Registered Nurse, states the patient has been taking Metformin with no side effects. We will cancel this as an allergy in his profile to lessen confusion in the future. Medications Abilify 10 mg oral tablet 1 tablet = 10 mg, By Mouth, Daily, 0 Refills, Maintenance Start Date: 03/23/12 Status: OrderedAlcohol Pads See Instructions, # 150 each, Refills 8, Tot. Refills 8, Maintenance, use to clean finger tips for glucose monitoring 5x/day DxE11.9, 12/17/19 4:07:00 EDT, E11.65, Compound, 176, cm, 12/16/19 9:46:00 EDT, Height Start Date: 12/17/19 Status: OrderedAlcohol Wipes See Instructions, # 100 application, Refills 11, Tot. Refills 11, Maintenance, use 3x/day for skin prep, 12/30/10 10:36:36 Start Date: 12/30/10 Status: OrderedAlcohol Wipes See Instructions, # 1 box, Refills 1, Tot. Refills 1, use 3x/day for skin prep, 07/23/12 11:22:03 Start Date: 07/23/12 Status: Orderedaspirin 81 mg oral enteric coated tablet 1 tablet = 81 mg, By Mouth, Daily, # 100 tablet, 0 Refills, Maintenance, EC Tablet Start Date: 06/10/10 Status: OrderedClozaril 100 mg oral tablet 1 tablet = 100 mg, By Mouth, 3 times a day, 0 Refills, Maintenance Start Date: 03/23/12 Status: OrderedFlonase 1 sprays, Daily, 0 Refills, Maintenance Start Date: 03/23/12 Status: OrderedFreestyle Lite Lancets See Instructions, # 150 each, Refills 11, Tot. Refills 11, Maintenance, test blood sugar 5x day, DX E11.9,, 12/17/19 4:07:00 EDT, Compound, 176, cm, 12/16/19 9:46:00 EDT, Height Start Date: 12/17/19 Status: OrderedFreestyle Lite Monitor See Instructions, # 1 kit, Refills 0, Tot. Refills 0, Maintenance, DX E11.9, 08/12/17 12:42:19 EDT, Patient lost glucometer that was picked up in 2017, Compound Start Date: 08/12/17 Status: OrderedFreestyle Lite Test Strips See Instructions, # 400 each, Refills 5, Tot. Refills 5, Maintenance, test blood sugar 4x day, DX E11.9, 12/17/19 4:08:00 EDT, E11.65, 90 day supply, Compound, 176, cm, 12/16/19 9:46:00 EDT, Height Start Date: 12/17/19 Status: OrderedFreestyle Test Strips See Instructions, # 120 application, Refills 3, Tot. Refills 3, Maintenance, test blood glucose 4x/day., 12/08/11 11:09:21 Start Date: 12/08/11 Status: OrderedHaldol Tablet Maintenance, 03/23/12 14:49:50 Start Date: 03/23/12 Status: OrderedInsulin Syringe, BD Ultra-Fine 1 cc 31 G x 8 mm (5/16in) See Instructions, # 400 each, Refills 5, Tot. Refills 5, Maintenance, 4 x a day injection, 90 day supply, 01/05/19 11:46:29 EDT, e11.65, Compound Start Date: 01/05/19 Status: OrderedInsulin Syringe, BD Ultra-Fine 1 cc 31 G x 8 mm (5/16in) See Instructions, # 360 each, Refills 3, [...] Solostar Pen 100 units/mL subcutaneous solution = 75 units, Subcutaneous Infusion, Daily, # 30 mL, 11 Refills, Maintenance, 12/17/19 4:07:00 EDT, [facility], E11.9, 176, cm, 12/16/19 9:46:00 EDT, Height Start Date: 12/17/19 Status: OrderedLevothyroxine Tablet 50, mcg, By Mouth, Daily, 0, 0, 12/02/07 16:54:52, Print NUHA Number, [id number], Constant Indicator Start Date: 12/02/07 Status: Orderedlithium [...] 0, 0, 12/02/07 16:56:34, Print NUHA Number, [id number], Constant Indicator Start Date: 12/02/07 Status: OrderedNovoLOG PenFill 100 units/mL subcutaneous solution See Instructions, 6-16 units by scale 3 times a day before meals max 48 units PLEASE GIVE 1 EXTRA PEN WITH LABEL FOR USE AT PATIENTS DAY PROGRAM, # 30 mL, 11 Refills, Maintenance, 12/17/19 4:08:00 EDT,[facility], 176, cm, 12/16/19 9:46:00... Start Date: 12/17/19 Status: OrderedOne Touch UltraSoft Lancets See Instructions, # 300 each, Refills 0, Tot. Refills 0, Maintenance, TEST BS 2- 3 TIMES PER DAY, 05/11/12 9:49:52 Start Date: 05/11/12 Status: OrderedPen [place], 31 G x 8 mm BD Ultra Fine III See Instructions, # 150 each, Refills 11, Tot. Refills 11, Maintenance, T2DM E11.9 for injecting insulin 4x daily, 12/17/19 4:07:00 EDT, Compound, 176, cm, 12/16/19 9:46:00 EDT, Height Start Date: 12/17/19 Status: OrderedPepcid Tablet 40, mg, 2 times a day, 0, 0, 12/02/07 16:57:18, Print NUHA Number, [id number], Constant Indicator Start Date: 12/02/07 Status: OrderedPLASTIC [...]
--- OUTSIDE RECORDS SUMMARY | 2022-02-26 20:24 | XMS_ITS | Continuity of Care Document ---
:1965 Author Organization [facility] Pediatric Endocrino log[facility] Address [address] [place] [phone]- Care Team Providers Name Role Phone Mando Turpin MD Primary Care Physician [place] [facility] [place] - 02/06/22 [facility] Pediatric Endocrinology [address] [place] [phone]- [place] Allergies, Adverse Reactions, Alerts Substance Reaction Severity Status metformin1 DIARRHEA Active Clozaril Active 1Michelle, Prosthetic Assistant, states the patient has been taking Metformin [...] 0 Refills, Maintenance, EC Tablet Start Date: 2/7/11 Status: OrderedClozaril 100 mg oral tablet 1 [...] 0, 0, 12/02/07 16:54:52, Print NUHA Number, [id number], Constant Indicator Start Date: 12/02/07 Status: Orderedlithium [...] 0, 0, 12/02/07 16:56:34, Print NUHA Number, [id number], Constant Indicator Start Date: 12/02/07 Status: OrderedOne [...] Infusion Every... Start Date: 10/08/20 Status: OrderedPen [place], 31 G x 8 mm BD Ultra Fine III See Instructions, # 150 each, Refills 11, Tot. Refills 11, Maintenance, T2DM E11.9 for injecting insulin 4x daily, 12/17/19 4:07:00 EDT, Compound, 176, cm, 12/16/19 9:46:00 EDT, Height Start Date: 12/17/19 Status: OrderedPepcid Tablet 40, mg, 2 times a day, 0, 0, 12/02/07 16:57:18, Print NUHA Number, [id number], Constant Indicator Start Date: 12/02/07 Status: OrderedPLASTIC [...] PersonnelName: Papi GONSALVES, Mando Bearden Address: Address: [address] [place] [address] Drive [address] [place] [id number]
--- OUTSIDE RECORDS SUMMARY | 2022-02-26 20:24 | XMS_ITS | Continuity of Care Document ---
:1965 Author Organization [facility] Endocrinology and D [facility] Address [address] [place] [phone]- Care Team Providers Name Role Phone Mando Turpin MD Primary Care Physician En[place] [facility] [place](s): 07/01/19 - 07/11/19 [facility] Endocrinology and Diabetes [address] [place] [phone]- [facility] Attending Physician: Jason Nelson Admitting Physician: Jason Nelson Referring Physician: trJason Allergies, Adverse Reactions, Alerts Substance Reaction Severity Status metformin1 DIARRHEA Active 1[facility], Power Saw Operator, states the patient has been taking Metformin with no side effects. We will cancel this as an allergy in his profile to lessen confusion in the future. Medications Abilify 10 mg oral tablet 1 tablet = 10 mg, By Mouth, Daily, 0 Refills, Maintenance Start Date: 03/23/12 Status: OrderedAlcohol Pads See Instructions, # 2 box, Refills 8, Tot. Refills 8, Maintenance, use 5x/day for skin prep, DxE11.9, 07/06/18 10:55:13 EST, E11.65, Compound Start Date: 07/06/18 Status: OrderedAlcohol Wipes See Instructions, # 100 [...] test blood sugar 5x day, DX E11.9,, 08/25/18 10:26:19 EDT, Compound Start Date: 08/25/18 Status: OrderedFreestyle Lite Monitor See Instructions, # 1 kit, Refills 0, Tot. Refills 0, Maintenance, DX E11.9, 08/12/17 12:42:19 EDT, Patient lost glucometer that was picked up in 2017, Compound Start Date: 08/12/17 Status: OrderedFreestyle Lite Test Strips See Instructions, # 400 each, Refills 5, Tot. Refills 5, Maintenance, test blood sugar 4x day, DX E11.9, 07/01/19 11:35:00 EST, E11.65, 90 day supply, Compound, 176, cm, 05/25/19 17:01:00 EST, Height Start Date: 07/01/19 Status: OrderedFreestyle Test Strips See Instructions, # [...] Daily, # 30 mL, 11 Refills, Maintenance, 07/01/19 11:31:00 [facility], E11.9, 176, cm, 05/25/19 17:01:00 EST, Height Start Date: 07/01/19 Status: OrderedLevothyroxine Tablet 50, mcg, By Mouth, Daily, 0, 0, 12/02/07 16:54:52, Print NUHA Number, [id number], Constant Indicator Start Date: 12/02/07 Status: Orderedlithium [...] 0, 0, 12/02/07 16:56:34, Print NUHA Number, [id number], Constant Indicator Start Date: 12/02/07 Status: OrderedNovoLOG PenFill 100 units/mL subcutaneous solution See Instructions, 6-16 units by scale 3 times a day before meals max 48 units PLEASE GIVE 1 EXTRA PEN WITH LABEL FOR USE AT PATIENTS DAY PROGRAM, # 30 mL, 11 Refills, Maintenance, 07/01/19 11:33:00 [facility], 176, cm, 05/25/19 17:01:... Start Date: 07/01/19 Status: OrderedOne Touch UltraSoft Lancets See Instructions, # 300 each, Refills 0, Tot. Refills 0, Maintenance, TEST BS 2- 3 TIMES PER DAY, 05/11/12 9:49:52 Start Date: 05/11/12 Status: OrderedPen [place], 31 G x 8 mm BD Ultra Fine III See Instructions, # 150 each, Refills 11, Tot. Refills 11, Maintenance, T2DM E11.9 for injecting insulin 4x daily, 07/01/19 11:32:00 EST, Compound, 176, cm, 05/25/19 17:01:00 EST, Height Start Date: 07/01/19 Status: OrderedPepcid Tablet 40, mg, 2 times a day, 0, 0, 12/02/07 16:57:18, Print NUHA Number, [id number], Constant Indicator Start Date: 12/02/07 Status: OrderedPLASTIC [...]
--- OUTSIDE RECORDS SUMMARY | 2022-02-26 20:24 | XMS_ITS | Continuity of Care Document ---
:1965 Author Organization [facility] Address [address] [place] [phone]- Care Team Providers Name Role Phone Mando Turpin MD Primary Care Physician [place] [facility] [place]21 - 09/29/21 [facility] [address] [place] [phone]- Allergies, Adverse Reactions, Alerts Substance Reaction Severity Status metformin1 DIARRHEA Active Clozaril Active 1Michelle, Delivery Architect, states the patient has been taking Metformin [...] 0, 0, 12/02/07 16:54:52, Print NUHA Number, [id number], Constant Indicator Start Date: 12/02/07 Status: Orderedlithium [...] 0, 0, 12/02/07 16:56:34, Print NUHA Number, [id number], Constant Indicator Start Date: 12/02/07 Status: OrderedOne [...] Infusion Every... Start Date: 10/08/20 Status: OrderedPen [place], 31 G x 8 mm BD Ultra Fine III See Instructions, # 150 each, Refills 11, Tot. Refills 11, Maintenance, T2DM E11.9 for injecting insulin 4x daily, 12/17/19 4:07:00 EDT, Compound, 176, cm, 12/16/19 9:46:00 EDT, Height Start Date: 12/17/19 Status: OrderedPepcid Tablet 40, mg, 2 times a day, 0, 0, 12/02/07 16:57:18, Print NUHA Number, [id number], Constant Indicator Start Date: 12/02/07 Status: OrderedPLASTIC [...]
--- OUTSIDE RECORDS SUMMARY | 2022-02-26 20:24 | XMS_ITS | Continuity of Care Document ---
:1965 Author Organization [facility] Address [address] [place] [phone]- Care Team Providers Name Role Phone Papi GONSALVES, Mando Bearden Primary Care Physician [place] [facility] [place] Date(s): 09/20/20 - 10/20/20 [facility] Endocrinology and Diabetes [address] [place] [phone]- Allergies, Adverse Reactions, Alerts Substance Reaction Severity Status metformin1 DIARRHEA Active Clozaril Active 1Michelle, Manager Of Training And Development, states the patient has been taking Metformin [...] sensors, See Instructions, # 2 each, Refills 6, Tot. Refills 6, Maintenance, Use to check BG up to 5 times/day, change every 14 days, wear on the back of the upper arm, 08/13/20 17:17:00 EDT, dx10.65, Supply, 176, cm, 12/16/19... Start Date: 08/13/20 Status: OrderedFreestyle alo 2 reader Freestyle alo 2 reader, See Instructions, # 1 each, Refills 0, Tot. Refills 0, Maintenance, Use tocheck BG up to 5 times/day, 08/13/20 17:17:00 EDT, Supply, 176, cm, 12/16/19 9:46:00 EDT, Height Start Date: 08/13/20 Status: OrderedFreestyle Lite Lancets See Instructions, # [...] Solostar Pen 100 units/mL subcutaneous solution = 65 units, Subcutaneous Infusion, Daily, # 10 mL, 11 Refills, Maintenance, 07/11/20 11:04:00 [facility], E11.9, 176, cm, 12/16/19 9:46:00 EDT, Height Start Date: 07/11/20 Status: OrderedLevothyroxine Tablet 50, mcg, By Mouth, Daily, 0, 0, 12/02/07 16:54:52, Print NUHA Number, [id number], Constant Indicator Start Date: 12/02/07 Status: Orderedlithium [...] 0, 0, 12/02/07 16:56:34, Print NUHA Number, [id number], Constant Indicator Start Date: 12/02/07 Status: OrderedNovoLOG PenFill 100 units/mL subcutaneous solution See Instructions, 6-16 units by scale 3 times a day before meals max 48 units PLEASE GIVE 1 EXTRA PEN WITH LABEL FOR USE AT PATIENTS DAY PROGRAM, # 30 mL, 11 Refills, Maintenance, 12/17/19 4:08:00 [facility], 176, cm, 12/16/19 9:46:00... Start [...] 0 Refills, Maintenance, 08/30/20 16:15:00 EDT, Solution, [facility], Partial fill upon patient request if the prescription is fora schedule II opioid drug., 176, cm, 12/16/19 9:46:00... Start Date: 08/30/20 Status: OrderedOzempic 2 mg/1.5 mL (0.25 mg or 0.5 mg dose) subcutaneous solution = 0.5 mg, Subcutaneous Infusion, Every week, # 4 each, 11 Refills, Maintenance, 10/08/20 18:11:00 [facility], Partial fill upon patient request if the prescription is for a schedule II opioid drug., 0.5 mg Subcutaneous Infusion Every... Start Date: 10/08/20 Status: OrderedPen [place], 31 G x 8 mm BD Ultra Fine III See Instructions, # 150 each, Refills 11, Tot. Refills 11, Maintenance, T2DM E11.9 for injecting insulin 4x daily, 12/17/19 4:07:00 EDT, Compound, 176, cm, 12/16/19 9:46:00 EDT, Height Start Date: 12/17/19 Status: OrderedPepcid Tablet 40, mg, 2 times a day, 0, 0, 12/02/07 16:57:18, Print NUHA Number, [id number], Constant Indicator Start Date: 12/02/07 Status: OrderedPLASTIC [...]
--- OUTSIDE RECORDS SUMMARY | 2022-02-26 20:24 | XMS_ITS | Continuity of Care Document ---
:1965 Author Organization [facility] Address [address] [place] [phone]- Care Team Providers Name Role Phone Papi GONSALVES, Mando Bearden Primary Care Physician [place] [facility] [place] 07/02/20 - 08/01/20 [facility] Endocrinology and Diabetes [address] [place] [phone]- Allergies, Adverse Reactions, Alerts Substance Reaction Severity Status metformin1 DIARRHEA Active 1Michelle, Optical Effects Line Up Person, states the patient has been taking Metformin [...] 12/17/19 Status: OrderedAlcohol Wipes See Instructions, # 1 [...] 10 mL, 11 Refills, Maintenance, 07/11/20 11:04:00 EST, [facility], E11.9, 176, cm, 12/16/19 9:46:00 EDT, Height Start Date: 07/11/20 Status: OrderedLevothyroxine Tablet 50, mcg, By Mouth, Daily, 0, 0, 12/02/07 16:54:52, Print NUHA Number, [id number], Constant Indicator Start Date: 12/02/07 Status: Orderedlithium [...] 0, 0, 12/02/07 16:56:34, Print NUHA Number, [id number], Constant Indicator Start Date: 12/02/07 Status: OrderedNovoLOG [...] dose) 2 mg/1.5 mL subcutaneous solution = 0.25 mg, Subcutaneous Injection, Every week, # 1.5 mL, 6 Refills, Maintenance, 07/27/20 8:50:00 EDT, Solution, [facility], Partial fill upon patient request if the prescription is fora schedule II opioid drug., 176, cm, 12/16/19 9:46:00... Start Date: 07/27/20 Stop Date: 02/08/21 Status: OrderedPen [place], 31 G x 8 mm BD Ultra Fine III See Instructions, # 150 each, Refills 11, Tot. Refills 11, Maintenance, T2DM E11.9 for injecting insulin 4x daily, 12/17/19 4:07:00 EDT, Compound, 176, cm, 12/16/19 9:46:00 EDT, Height Start Date: 12/17/19 Status: OrderedPepcid Tablet 40, mg, 2 times a day, 0, 0, 12/02/07 16:57:18, Print NUHA Number, [id number], Constant Indicator Start Date: 12/02/07 Status: OrderedPLASTIC [...]
--- OUTSIDE RECORDS SUMMARY | 2022-02-26 20:24 | XMS_ITS | Continuity of Care Document ---
:1965 Author Organization [facility] Address [address] [place] [phone]- Care Team Providers Name Role Phone Mando Turpin MD Primary Care Physician En[place] [facility] [place] Date(s): 01/16/22 - 02/15/22 [facility] Endocrinology [address] [place] [phone]- Allergies, Adverse Reactions, Alerts Substance Reaction Severity Status metformin1 DIARRHEA Active Clozaril Active 1Michelle, [employer], states the patient has been taking Metformin [...] 0, 0, 12/02/07 16:54:52, Print NUHA Number, [id number], Constant Indicator Start Date: 12/02/07 Status: Orderedlithium [...] 0, 0, 12/02/07 16:56:34, Print NUHA Number, [id number], Constant Indicator Start Date: 12/02/07 Status: OrderedOne [...] Infusion Every... Start Date: 10/08/20 Status: OrderedPen [place], 31 G x 8 mm BD Ultra Fine III See Instructions, # 150 each, Refills 11, Tot. Refills 11, Maintenance, T2DM E11.9 for injecting insulin 4x daily, 12/17/19 4:07:00 EDT, Compound, 176, cm, 12/16/19 9:46:00 EDT, Height Start Date: 12/17/19 Status: OrderedPepcid Tablet 40, mg, 2 times a day, 0, 0, 12/02/07 16:57:18, Print NUHA Number, [id number], Constant Indicator Start Date: 12/02/07 Status: OrderedPLASTIC [...] PersonnelName: Papi GONSALVES, Mando Bearden Address: Address: [address] [place] [address] [address] [place] [id number]
--- OUTSIDE RECORDS SUMMARY | 2022-02-26 20:25 | XMS_ITS | Continuity of Care Document ---
:1965 Author Organization [facility] Address [address] [place] [phone]- Care Team Providers Name Role Phone Mando Turpin MD Primary Care Physician [place] [facility] [place] - 01/25/22 [facility] [address] [place] [phone]- [place] Allergies, Adverse Reactions, Alerts Substance Reaction Severity Status metformin1 DIARRHEA Active Clozaril Active 1Michelle, Senior Warehouse Clerk, states the patient has been taking Metformin [...] 0, 0, 12/02/07 16:54:52, Print NUHA Number, [id number], Constant Indicator Start Date: 12/02/07 Status: Orderedlithium [...] 0, 0, 12/02/07 16:56:34, Print NUHA Number, [id number], Constant Indicator Start Date: 12/02/07 Status: OrderedOne [...] Infusion Every... Start Date: 10/08/20 Status: OrderedPen [place], 31 G x 8 mm BD Ultra Fine III See Instructions, # 150 each, Refills 11, Tot. Refills 11, Maintenance, T2DM E11.9 for injecting insulin 4x daily, 12/17/19 4:07:00 EDT, Compound, 176, cm, 12/16/19 9:46:00 EDT, Height Start Date: 12/17/19 Status: OrderedPepcid Tablet 40, mg, 2 times a day, 0, 0, 12/02/07 16:57:18, Print NUHA Number, [id number], Constant Indicator Start Date: 12/02/07 Status: OrderedPLASTIC [...] Active Hypothyroidism(Confirmed) Active Obesity(Confirmed) Active Schizophrenia(Confirmed) Active Care Team PersonnelName: Mando Turpin MD Address: [address] [place] [address] [place] [id number]
--- OUTSIDE RECORDS SUMMARY | 2022-02-26 20:25 | XMS_ITS | Continuity of Care Document ---
:1965 Author Organization [facility] Address [address] [place] [phone]- Care Team Providers Name Role Phone Papi GONSALVES, Mando Bearden Primary Care Physician [place] [facility] [place] 02[place]/21 [facility]ology [facility] Diabetes [address] [place] [address]- Allergies, Adverse Reactions, Alerts Substance Reaction Severity Status metformin1 DIARRHEA Active Clozaril Active 1Michelle, Advice Line Rn, states the patient has been taking Metformin [...] cm, 10/18/20 9:49:00 EDT, Height Start Date: 9/27/21 Status: OrderedHaldol Tablet Maintenance, 03/23/12 14:49:50 Start Date: 03/23/12 Status: OrderedInsulin Syringe, BD Ultra-Fine 1 cc 31 G x 8 mm (09/16in) See Instructions, # 400 each, Refills 5, Tot. Refills 5, Maintenance, 4 x a day injection, 90 day supply, 01/05/19 11:46:29 EDT, e11.65, Compound Start Date: 01/05/19 Status: OrderedInsulin Syringe, BD Ultra-Fine 1 cc 31 G x 8 mm (09/16in) See Instructions, # 360 each, Refills 3, [...] 0, 0, 12/02/07 16:54:52, Print NUHA Number, [id number], Constant Indicator Start Date: 12/02/07 Status: Orderedlithium [...] 0, 0, 12/02/07 16:56:34, Print NUHA Number, [id number], Constant Indicator Start Date: 12/02/07 Status: OrderedOne [...] Infusion Every... Start Date: 10/08/20 Status: OrderedPen [place], 31 G x 8 mm BD Ultra Fine III See Instructions, # 150 each, Refills 11, Tot. Refills 11, Maintenance, T2DM E11.9 for injecting insulin 4x daily, 12/17/19 4:07:00 EDT, Compound, 176, cm, 12/16/19 9:46:00 EDT, Height Start Date: 12/17/19 Status: OrderedPepcid Tablet 40, mg, 2 times a day, 0, 0, 12/02/07 16:57:18, Print NUHA Number, [id number], Constant Indicator Start Date: 12/02/07 Status: OrderedPLASTIC [...]
--- OUTSIDE RECORDS SUMMARY | 2022-02-26 20:25 | XMS_ITS | Continuity of Care Document ---
:1965 Author Organization [facility] Address [address] [place] [address]- Care Team Providers Name Role Phone Papi GONSALVES, Mando Bearden Primary Care Physician [place] [facility] [place] 09/28/20 [facility] Endocrinology and Diabetes [address] [place] [address]- Allergies, Adverse Reactions, Alerts Substance Reaction Severity Status metformin1 DIARRHEA Active 1Michelle, Can Tender, states the patient has been taking Metformin [...] 0, 0, 12/02/07 16:54:52, Print NUHA Number, [id number], Constant Indicator Start Date: 12/02/07 Status: Orderedlithium [...] 0, 0, 12/02/07 16:56:34, Print NUHA Number, [id number], Constant Indicator Start Date: 12/02/07 Status: OrderedNovoLOG PenFill 100 units/mL subcutaneous solution See Instructions, 6-16 units by scale 3 times a day before meals max 48 units PLEASE GIVE 1 EXTRA PEN WITH LABEL FOR USE AT PATIENTS DAY PROGRAM, # 30 mL, 11 Refills, Maintenance, 12/17/19 4:08:00 EDT,[facility], 176, cm, 12/16/19 9:46:00... Start [...] mL, 6 Refills, Maintenance, 07/27/20 8:50:00 EDT, [facility], Partial fill upon patient request if the prescription is fora schedule II opioid drug., 176, cm, 12/16/19 9:46:00... Start Date: 07/27/20 Stop Date: 02/08/21 Status: OrderedOzempic (0.25 mg or 0.5 mg dose) 2 mg/1.5 mL subcutaneous solution = 0.5 mg, Subcutaneous Injection, Every week, # 1.5 mL, 0 Refills, Maintenance, 08/30/20 16:15:00 EDT, [facility], Partial fill upon patient request if the prescription is fora schedule II opioid drug., 176, cm, 12/16/19 9:46:00... Start Date: 08/30/20 Status: OrderedPen [place], 31 G x 8 mm BD Ultra Fine III See Instructions, # 150 each, Refills 11, Tot. Refills 11, Maintenance, T2DM E11.9 for injecting insulin 4x daily, 12/17/19 4:07:00 EDT, Compound, 176, cm, 12/16/19 9:46:00 EDT, Height Start Date: 12/17/19 Status: OrderedPepcid Tablet 40, mg, 2 times a day, 0, 0, 12/02/07 16:57:18, Print NUHA Number, [id number], Constant Indicator Start Date: 12/02/07 Status: OrderedPLASTIC [...]
--- OUTSIDE RECORDS SUMMARY | 2022-02-26 20:25 | XMS_ITS | Continuity of Care Document ---
:1965 Author Organization [facility] Address [address] [place] [phone]- Care Team Providers Name Role Phone Mando Turpin MD Primary Care Physician Encounter [facility] [place] Date(s): 05/25/19 - 06/04/[address] [address]- [facility] Attending Physician: Admtr, Anthony8 Admitting Physician: AdmtrJason Referring Physician: Admtr Ar8 Allergies, Adverse Reactions, Alerts Substance Reaction Severity Status metformin1 DIARRHEA [facility], Facilities Project Manager, states the patient has been taking Metformin [...] test blood sugar 4x day, DX E11.9, 01/05/19 11:46:22 EDT, E11.65, 90 day supply, Compound Start Date: 01/05/19 Status: OrderedFreestyle Test Strips See Instructions, # 120 application, Refills 3, Tot. Refills 3, Maintenance, test blood glucose 4x/day., 12/08/11 11:09:21 Start Date: 12/08/11 Status: OrderedHaldol Tablet Maintenance, 03/23/12 14:49:50 Start Date: 03/23/12 Status: OrderedInsulin Syringe, BD Ultra-Fine 1 cc 31 G x 8 mm (5/16in) See Instructions, # 120 units, Refills 0, Tot. Refills 0, Maintenance, use with insulins 4 x a day for type 2 diabetes (250.00), 01/26/13 8:47:18, Compound Start Date: 01/26/13 Status: OrderedInsulin Syringe, BD Ultra-Fine 1 cc [...] Refills, Maintenance Start Date: 03/23/12 Status: OrderedLantus 100 u/ml subcutaneous solution See Instructions, 70 units subcutaneous injection at bedtime., # 30 mL, 11 Refills, Maintenance, 01/05/19 11:45:57 EDT, E11.65 Start Date: 01/05/19 Status: OrderedLantus Solostar Pen 100 units/mL subcutaneous solution = 75 units, Subcutaneous Infusion, Daily, # 15 mL, 5 Refills, Maintenance, 05/10/19 13:33:00 OLU, [facility], 176, cm, 01/05/19 10:57:00 EDT, Height Start Date: 05/10/19 Status: OrderedLevothyroxine Tablet 50, mcg, By Mouth, Daily, 0, 0, 12/02/07 16:54:52, Print NUHA Number, [id number], Constant Indicator Start Date: 12/02/07 Status: Orderedlithium [...] 0, 0, 12/02/07 16:56:34, Print NUHA Number, [id number], Constant Indicator Start Date: 12/02/07 Status: OrderedNovoLOG 100 units/mL subcutaneous solution See Instructions, 6-16 units subcutaneous injection 3x a day with meals, max 48U; Pt needs an extra vial for his day program, please dispense at least 3 vials, # 30 mL, 11 Refills, Maintenance, 01/05/19 11:46:08 EDT, Pt needs an extra vial for his day... Start Date: 01/05/19 Status: OrderedNovoLOG PenFill 100 units/mL subcutaneous solution See Instructions, T2DM E11.9 6-16 units Subcutaneous injection 3 times a day before meals max nick dose 48 units, # 15 mL, 5 Refills, Maintenance, 05/10/19 13:36:00 EST, [facility], 176, cm, 01/05/19 10:57:00 EDT, Height Start Date: 05/10/19 Status: OrderedOne Touch UltraSoft Lancets See Instructions, # 300 each, Refills 0, Tot. Refills 0, Maintenance, TEST BS 2- 3 TIMES PER DAY, 05/11/12 9:49:52 Start Date: 05/11/12 Status: OrderedPen [place], 31 G x 8 mm BD Ultra Fine III See Instructions, # 150 each, Refills 11, Tot. Refills 11, Maintenance, T2DM E11.9 for injecting insulin 4x daily, 05/18/19 15:39:00 EST, Compound, 176, cm, 01/05/19 10:57:00 EDT, Height Start Date: 05/18/19 Status: OrderedPepcid Tablet 40, mg, 2 times a day, 0, 0, 12/02/07 16:57:18, Print NUHA Number, [id number], Constant Indicator Start Date: 12/02/07 Status: OrderedPLASTIC [...]
--- OUTSIDE RECORDS SUMMARY | 2022-02-26 20:25 | XMS_ITS | Continuity of Care Document ---
:1965 Author Organization [facility] Address [address] [place] [phone]- Care Team Providers Name Role Phone Mando Turpin MD Primary Care Physician Encounter [facility] [place] Date(s): 03/08/19 - 04/27/[address] [address]- [facility] Attending Physician: Ochoa Johnson MD Admitting Physician: Ochoa Johnson MD Referring Physician: Mando Turpin MD Allergies, Adverse Reactions, Alerts Substance Reaction Severity Status metformin1 DIARRHEA [facility], Facility Technician, states the patient has been taking Metformin [...] 11:45:57 EDT, E11.65 Start Date: 01/05/19 Status: OrderedLevothyroxine Tablet 50, mcg, By Mouth, Daily, 0, 0, 12/02/07 16:54:52, Print NUHA Number, [id number], Constant Indicator Start Date: 12/02/07 Status: Orderedlithium [...] 0, 0, 12/02/07 16:56:34, Print NUHA Number, [id number], Constant Indicator Start Date: 12/02/07 Status: OrderedNovoLOG 100 units/mL subcutaneous solution See Instructions, 6-16 units subcutaneous injection 3x a day with meals, max 48U; Pt needs an extra vial for his day program, please dispense at least 3 vials, # 30 mL, 11 Refills, Maintenance, 01/05/19 11:46:08 EDT, Pt needs an extra vial for his day... Start Date: 01/05/19 Status: OrderedOne Touch UltraSoft Lancets See Instructions, # 300 each, Refills 0, Tot. Refills 0, Maintenance, TEST BS 2- 3 TIMES PER DAY, 05/11/12 9:49:52 Start Date: 05/11/12 Status: OrderedPepcid Tablet 40, mg, 2 times a day, 0, 0, 12/02/07 16:57:18, Print NUHA Number, [id number], Constant Indicator Start Date: 12/02/07 Status: OrderedPLASTIC [...]
--- OUTSIDE RECORDS SUMMARY | 2022-02-26 20:25 | XMS_ITS | Continuity of Care Document ---
:1965 Author Organization [facility] Endocrinology and D [facility] Address [address] [place] [address]- Care Team Providers Name Role Phone Mando Turpin MD Primary Care Physician Encounter [facility] [place] Date(s): 03/09/19 - 04/27/19 [facility] Endocrinology and Diabetes [address] [place] [address]- [facility] Attending Physician: Ochoa Johnson MD Admitting Physician: Ochoa Johnson MD Referring Physician: Mando Turpin MD Allergies, Adverse Reactions, Alerts Substance Reaction Severity Status metformin1 DIARRHEA Active 1[facility], Multimedia Engineer, states the patient has been taking Metformin [...] 0, 0, 12/02/07 16:54:52, Print NUHA Number, [id number], Constant Indicator Start Date: 12/02/07 Status: Orderedlithium [...] 0, 0, 12/02/07 16:56:34, Print NUHA Number, [id number], Constant Indicator Start Date: 12/02/07 Status: OrderedNovoLOG [...] 0, 0, 12/02/07 16:57:18, Print NUHA Number, [id number], Constant Indicator Start Date: 12/02/07 Status: OrderedPLASTIC [...]
--- OUTSIDE RECORDS SUMMARY | 2022-02-26 20:25 | XMS_ITS | Continuity of Care Document ---
:1965 Author Organization [facility] Address [address] [place] [phone]- Care Team Providers Name Role Phone Papi GONSALVES, Mando Bearden Primary Care Physician Encounter [facility] [place] Date(s): 07/30/20 - 08/29/20 [facility] Endocrinology and Diabetes [address] [place] [address]- Allergies, Adverse Reactions, Alerts Substance Reaction Severity Status metformin1 DIARRHEA Active 1Michelle, Medical Genetics Director, states the patient has been taking Metformin [...] 0, 0, 12/02/07 16:54:52, Print NUHA Number, [id number], Constant Indicator Start Date: 12/02/07 Status: Orderedlithium [...] 0, 0, 12/02/07 16:56:34, Print NUHA Number, [id number], Constant Indicator Start Date: 12/02/07 Status: OrderedNovoLOG [...] Date: 07/27/20 Stop Date: 02/08/21 Status: OrderedPen [place], 31 G x 8 mm BD Ultra Fine III See Instructions, # 150 each, Refills 11, Tot. Refills 11, Maintenance, T2DM E11.9 for injecting insulin 4x daily, 12/17/19 4:07:00 EDT, Compound, 176, cm, 12/16/19 9:46:00 EDT, Height Start Date: 12/17/19 Status: OrderedPepcid Tablet 40, mg, 2 times a day, 0, 0, 12/02/07 16:57:18, Print NUHA Number, [id number], Constant Indicator Start Date: 12/02/07 Status: OrderedPLASTIC [...]
--- OUTSIDE RECORDS SUMMARY | 2022-02-26 20:25 | XMS_ITS | Continuity of Care Document ---
:1965 Author Organization [facility] Address [address] [place] [phone]- Care Team Providers Name Role Phone Mando Turpin MD Primary Care Physician En[place] [facility] [place] Date(s): 01/29/21 - 02/28/21 [facility] Endocrinology and Diabetes [address] [place] [id number] Attending Physician: Jason Nelson Admitting Physician: AdmtrJason Referring Physician: Admtr, Ar8 Allergies, Adverse Reactions, Alerts Substance Reaction Severity Status metformin1 DIARRHEA Active Clozaril Active 1Michelle, Cooperer, states the patient has been taking Metformin [...] 0, 0, 12/02/07 16:54:52, Print NUHA Number, [id number], Constant Indicator Start Date: 12/02/07 Status: Orderedlithium [...] 0, 0, 12/02/07 16:56:34, Print NUHA Number, [id number], Constant Indicator Start Date: 12/02/07 Status: OrderedOne [...] Infusion Every... Start Date: 10/08/20 Status: OrderedPen [place], 31 G x 8 mm BD Ultra Fine III See Instructions, # 150 each, Refills 11, Tot. Refills 11, Maintenance, T2DM E11.9 for injecting insulin 4x daily, 12/17/19 4:07:00 EDT, Compound, 176, cm, 12/16/19 9:46:00 EDT, Height Start Date: 12/17/19 Status: OrderedPepcid Tablet 40, mg, 2 times a day, 0, 0, 12/02/07 16:57:18, Print NUHA Number, [id number], Constant Indicator Start Date: 12/02/07 Status: OrderedPLASTIC [...]
--- OUTSIDE RECORDS SUMMARY | 2022-02-26 20:25 | XMS_ITS | Continuity of Care Document ---
:1965 Author Organization [facility] Endocrinology and D iabetes Address [address] [place] [address]- Care Team Providers Name Role Phone Mando Turpin MD Primary Care Physician En[place] [facility] [place] Date(s): 09/16/19 - 01/14/20 [facility] Endocrinology and Diabetes [address] [place] [address]- [facility] Attending Physician: Ochoa Johnson MD Admitting Physician: Ochoa Johnson MD Referring Physician: Mando Turpin MD Allergies, Adverse Reactions, Alerts Substance Reaction Severity Status metformin1 DIARRHEA [facility] Title I Teacher, states the patient has been taking Metformin [...] 0, 0, 12/02/07 16:54:52, Print NUHA Number, [id number], Constant Indicator Start Date: 12/02/07 Status: Orderedlithium [...] 0, 0, 12/02/07 16:56:34, Print NUHA Number, [id number], Constant Indicator Start Date: 12/02/07 Status: OrderedNovoLOG [...] 05/11/12 9:49:52 Start Date: 05/11/12 Status: OrderedPen [place], 31 G x 8 mm BD Ultra Fine III See Instructions, # 150 each, Refills 11, Tot. Refills 11, Maintenance, T2DM E11.9 for injecting insulin 4x daily, 12/17/19 4:07:00 EDT, Compound, 176, cm, 12/16/19 9:46:00 EDT, Height Start Date: 12/17/19 Status: OrderedPepcid Tablet 40, mg, 2 times a day, 0, 0, 12/02/07 16:57:18, Print NUHA Number, [id number], Constant Indicator Start Date: 12/02/07 Status: OrderedPLASTIC [...]
--- OUTSIDE RECORDS SUMMARY | 2022-02-26 20:25 | XMS_ITS | Continuity of Care Document ---
:1965 Author Organization [facility] Endocrinology and D [facility] Address [address] [place] [phone]- Care Team Providers Name Role Phone Mando Turpin MD Primary Care Physician Encounter [facility] [place] Date(s): 12/06/20 - 01/05/21 [facility] Endocrinology and Diabetes [address] [place] [id number] Allergies, Adverse Reactions, Alerts Substance Reaction Severity Status metformin1 DIARRHEA Active Clozaril Active 1Michelle, Health Care Sanitary Technician, states the patient has been taking [...] 0, 0, 12/02/07 16:54:52, Print NUHA Number, [id number], Constant Indicator Start Date: 12/02/07 Status: Orderedlithium [...] 0, 0, 12/02/07 16:56:34, Print NUHA Number, [id number], Constant Indicator Start Date: 12/02/07 Status: OrderedOne [...] Infusion Every... Start Date: 10/08/20 Status: OrderedPen [place], 31 G x 8 mm BD Ultra Fine III See Instructions, # 150 each, Refills 11, Tot. Refills 11, Maintenance, T2DM E11.9 for injecting insulin 4x daily, 12/17/19 4:07:00 EDT, Compound, 176, cm, 12/16/19 9:46:00 EDT, Height Start Date: 12/17/19 Status: OrderedPepcid Tablet 40, mg, 2 times a day, 0, 0, 12/02/07 16:57:18, Print NUHA Number, [id number], Constant Indicator Start Date: 12/02/07 Status: OrderedPLASTIC [...]
--- OUTSIDE RECORDS SUMMARY | 2022-02-26 20:25 | XMS_ITS | Continuity of Care Document ---
:1965 Author Organization [facility] Address [address] [place] [phone]- Care Team Providers Name Role Phone Papi GONSALVES, Mando Bearden Primary Care Physician Encounter [facility] [place] Date(s): 08/02/20 - 09/01/20 [facility] Endocrinology and Diabetes [address] [place] [phone]- Allergies, Adverse Reactions, Alerts Substance Reaction Severity Status metformin1 DIARRHEA Active 1Michelle, Manager Animation, states the patient has been taking Metformin [...] 0, 0, 12/02/07 16:54:52, Print NUHA Number, [id number], Constant Indicator Start Date: 12/02/07 Status: Orderedlithium [...] 0, 0, 12/02/07 16:56:34, Print NUHA Number, [id number], Constant Indicator Start Date: 12/02/07 Status: OrderedNovoLOG [...] mL, 6 Refills, Maintenance, 07/27/20 8:50:00 EDT, [facility], Partial fill [...] 12/16/19 9:46:00... Start Date: 08/30/20 Status: OrderedPen [place], 31 G x 8 mm BD Ultra Fine III See Instructions, # 150 each, Refills 11, Tot. Refills 11, Maintenance, T2DM E11.9 for injecting insulin 4x daily, 12/17/19 4:07:00 EDT, Compound, 176, cm, 12/16/19 9:46:00 EDT, Height Start Date: 12/17/19 Status: OrderedPepcid Tablet 40, mg, 2 times a day, 0, 0, 12/02/07 16:57:18, Print NUHA Number, [id number], Constant Indicator Start Date: 12/02/07 Status: OrderedPLASTIC [...]
--- OUTSIDE RECORDS SUMMARY | 2022-02-26 20:25 | XMS_ITS | Continuity of Care Document ---
:1965 Author Organization [facility] Endocrinology and D [facility] Address [address] [place] [phone]- Care Team Providers Name Role Phone Mando Turpin MD Primary Care Physician Encounter [facility] [place] Date(s): 10/18/20 - 11/17/20 [facility] Endocrinology and Diabetes [address] [place] [id number] Allergies, Adverse Reactions, Alerts Substance Reaction Severity Status metformin1 DIARRHEA Active Clozaril Active 1Michelle, Form Maker, states the patient has been taking Metformin [...] 0, 0, 12/02/07 16:54:52, Print NUHA Number, [id number], Constant Indicator Start Date: 12/02/07 Status: Orderedlithium [...] 0, 0, 12/02/07 16:56:34, Print NUHA Number, [id number], Constant Indicator Start Date: 12/02/07 Status: OrderedOne [...] Infusion Every... Start Date: 10/08/20 Status: OrderedPen [place], 31 G x 8 mm BD Ultra Fine III See Instructions, # 150 each, Refills 11, Tot. Refills 11, Maintenance, T2DM E11.9 for injecting insulin 4x daily, 12/17/19 4:07:00 EDT, Compound, 176, cm, 12/16/19 9:46:00 EDT, Height Start Date: 12/17/19 Status: OrderedPepcid Tablet 40, mg, 2 times a day, 0, 0, 12/02/07 16:57:18, Print NUHA Number, [id number], Constant Indicator Start Date: 12/02/07 Status: OrderedPLASTIC [...]
--- OUTSIDE RECORDS SUMMARY | 2022-02-26 20:25 | XMS_ITS | Continuity of Care Document ---
:1965 Author Organization [facility] Address [address] [place] [address]- Care Team Providers Name Role Phone Mando Turpin MD Primary Care Physician En[place] [facility] [place] Date(s): 05/11/19 - 07/02/[address] [address]- [facility] Attending Physician: Ochoa Johnson MD Admitting Physician: Ochoa Johnson MD Referring Physician: Mando Turpin MD Allergies, Adverse Reactions, Alerts Substance Reaction Severity Status metformin1 DIARRHEA Active 1[facility], Windows Phone Developer, states the patient has been taking Metformin [...] 0, 0, 12/02/07 16:54:52, Print NUHA Number, [id number], Constant Indicator Start Date: 12/02/07 Status: Orderedlithium [...] 0, 0, 12/02/07 16:56:34, Print NUHA Number, [id number], Constant Indicator Start Date: 12/02/07 Status: OrderedNovoLOG [...] 05/11/12 9:49:52 Start Date: 05/11/12 Status: OrderedPen [place], 31 G x 8 mm BD Ultra Fine III See Instructions, # 150 each, Refills 11, Tot. Refills 11, Maintenance, T2DM E11.9 for injecting insulin 4x daily, 07/01/19 11:32:00 EST, Compound, 176, cm, 05/25/19 17:01:00 EST, Height Start Date: 07/01/19 Status: OrderedPepcid Tablet 40, mg, 2 times a day, 0, 0, 12/02/07 16:57:18, Print NUHA Number, [id number], Constant Indicator Start Date: 12/02/07 Status: OrderedPLASTIC [...]
--- OUTSIDE RECORDS SUMMARY | 2022-02-26 20:25 | XMS_ITS | Continuity of Care Document ---
:1965 Author Organization [facility] Address [address] [place] [phone]- Care Team Providers Name Role Phone Papi GONSALVES, Mando Bearden Primary Care Physician Encounter [facility] [place] Date(s): 08/17/20 - 09/16/20 [facility] Endocrinology and Diabetes [address] [place] [phone]- Allergies, Adverse Reactions, Alerts Substance Reaction Severity Status metformin1 DIARRHEA Active 1Michelle, Cardiac Rehabilitation Specialist, states the patient has been taking Metformin [...] 0, 0, 12/02/07 16:54:52, Print NUHA Number, [id number], Constant Indicator Start Date: 12/02/07 Status: Orderedlithium [...] 0, 0, 12/02/07 16:56:34, Print NUHA Number, [id number], Constant Indicator Start Date: 12/02/07 Status: OrderedNovoLOG [...] 12/16/19 9:46:00... Start Date: 08/30/20 Status: OrderedPen [place], 31 G x 8 mm BD Ultra Fine III See Instructions, # 150 each, Refills 11, Tot. Refills 11, Maintenance, T2DM E11.9 for injecting insulin 4x daily, 12/17/19 4:07:00 EDT, Compound, 176, cm, 12/16/19 9:46:00 EDT, Height Start Date: 12/17/19 Status: OrderedPepcid Tablet 40, mg, 2 times a day, 0, 0, 12/02/07 16:57:18, Print NUHA Number, [id number], Constant Indicator Start Date: 12/02/07 Status: OrderedPLASTIC [...]
--- OUTSIDE RECORDS SUMMARY | 2022-02-26 20:25 | XMS_ITS | Continuity of Care Document ---
:1965 Author Organization [facility] Address [address] [place] [address]- Care Team Providers Name Role Phone Mando Turpin MD Primary Care Physician Encounter [facility] [place] Date(s): 12/03/21 - 01/02/22 [facility] Endocr[facility] [address] [place] [phone]- Allergies, Adverse Reactions, Alerts Substance Reaction Severity Status metformin1 DIARRHEA Active Clozaril Active 1Michelle, Surveillance Monitor, states the patient has been taking Metformin [...] 0, 0, 12/02/07 16:54:52, Print NUHA Number, [id number], Constant Indicator Start Date: 12/02/07 Status: Orderedlithium [...] 0, 0, 12/02/07 16:56:34, Print NUHA Number, [id number], Constant Indicator Start Date: 12/02/07 Status: OrderedOne [...] Infusion Every... Start Date: 10/08/20 Status: OrderedPen [place], 31 G x 8 mm BD Ultra Fine III See Instructions, # 150 each, Refills 11, Tot. Refills 11, Maintenance, T2DM E11.9 for injecting insulin 4x daily, 12/17/19 4:07:00 EDT, Compound, 176, cm, 12/16/19 9:46:00 EDT, Height Start Date: 12/17/19 Status: OrderedPepcid Tablet 40, mg, 2 times a day, 0, 0, 12/02/07 16:57:18, Print NUHA Number, [id number], Constant Indicator Start Date: 12/02/07 Status: OrderedPLASTIC [...] Care Team PersonnelName: Mando Turpin MD Address: [address] [place] [address] [address] [place] [id number]
--- OUTSIDE RECORDS SUMMARY | 2022-02-26 20:25 | XMS_ITS | Continuity of Care Document ---
:1965 Author Organization [facility] and D [facility]entin Address [address] [place] [phone]- Care Team Providers Name Role Phone Mando Turpin MD Primary Care Physician Encounter [facility] [place] Date(s): 10/08/20 - 11/07/20 [facility] Diabetes [address] [place] [id number] Allergies, Adverse Reactions, Alerts Substance Reaction Severity Status metformin1 DIARRHEA Active Clozaril Active 1Michelle, Record Changer Assembler, states the patient has been taking [...] 0, 0, 12/02/07 16:54:52, Print NUHA Number, [id number], Constant Indicator Start Date: 12/02/07 Status: Orderedlithium [...] 0, 0, 12/02/07 16:56:34, Print NUHA Number, [id number], Constant Indicator Start Date: 12/02/07 Status: OrderedOne [...] Infusion Every... Start Date: 10/08/20 Status: OrderedPen [place], 31 G x 8 mm BD Ultra Fine III See Instructions, # 150 each, Refills 11, Tot. Refills 11, Maintenance, T2DM E11.9 for injecting insulin 4x daily, 12/17/19 4:07:00 EDT, Compound, 176, cm, 12/16/19 9:46:00 EDT, Height Start Date: 12/17/19 Status: OrderedPepcid Tablet 40, mg, 2 times a day, 0, 0, 12/02/07 16:57:18, Print NUHA Number, [id number], Constant Indicator Start Date: 12/02/07 Status: OrderedPLASTIC [...]
--- OUTSIDE RECORDS SUMMARY | 2022-02-26 20:25 | XMS_ITS | Continuity of Care Document ---
:1965 Author Organization [facility] Address [address] [place] [phone]- Care Team Providers Name Role Phone Papi GONSALVES, Mando Bearden Primary Care Physician Encounter [facility] [place] Date(s): 07/13/20 - 08/12/20 [facility] Diabetes [address] [place] [id number]- Allergies, Adverse Reactions, Alerts Substance Reaction Severity Status metformin1 DIARRHEA Active 1Michelle, Director River [employer]oration, states the patient has been taking Metformin [...] Maintenance Start Date: 03/23/12 Status: OrderedFreestyle alo 14-day sensors Freestyle alo 14-day sensors, See Instructions, # 2 each, Refills 6, Tot. Refills 6, Maintenance, ???Freestyle alo 2 reader?Freestyle alo 2 14- day sensors, 08/03/20 17:08:00 EDT, Supply Start Date: 08/03/20 Status: OrderedFreestyle alo reader Freestyle alo reader, See Instructions, # 1 each, Refills 0, Tot. Refills 0, Maintenance, dx 10.65, 08/03/20 17:08:00 EDT, Supply Start Date: 08/03/20 Status: OrderedFreestyle Lite Lancets See Instructions, # [...] 0, 0, 12/02/07 16:54:52, Print NUHA Number, [id number], Constant Indicator Start Date: 12/02/07 Status: Orderedlithium [...] 0, 0, 12/02/07 16:56:34, Print NUHA Number, [id number], Constant Indicator Start Date: 12/02/07 Status: OrderedNovoLOG [...] Date: 07/27/20 Stop Date: 02/08/21 Status: OrderedPen [place], 31 G x 8 mm BD Ultra Fine III See Instructions, # 150 each, Refills 11, Tot. Refills 11, Maintenance, T2DM E11.9 for injecting insulin 4x daily, 12/17/19 4:07:00 EDT, Compound, 176, cm, 12/16/19 9:46:00 EDT, Height Start Date: 12/17/19 Status: OrderedPepcid Tablet 40, mg, 2 times a day, 0, 0, 12/02/07 16:57:18, Print NUHA Number, [id number], Constant Indicator Start Date: 12/02/07 Status: OrderedPLASTIC [...]
--- OUTSIDE RECORDS SUMMARY | 2022-02-26 20:25 | XMS_ITS | Continuity of Care Document ---
:1965 Author Organization [facility] Address [address] [place] [address]- Care Team Providers Name Role Phone Papi GONSALVES, Mando Bearden Primary Care Physician Encounter [facility] [place] Date(s): 11/11/19 - 01/08/[address] [facility] Endocr[facility]ology [facility] Diabetes [address] [place] [address]- [facility] Attending Physician: Audra Brand MD Admitting Physician: Sunday GONSALVES, Audra Allergies, Adverse Reactions, Alerts Substance Reaction Severity Status metformin1 DIARRHEA [facility], Coat Operator, states the patient has been taking [...] 0, 0, 12/02/07 16:54:52, Print NUHA Number, [id number], Constant Indicator Start Date: 12/02/07 Status: Orderedlithium [...] 0, 0, 12/02/07 16:56:34, Print NUHA Number, [id number], Constant Indicator Start Date: 12/02/07 Status: OrderedNovoLOG [...] 05/11/12 9:49:52 Start Date: 05/11/12 Status: OrderedPen [place], 31 G x 8 mm BD Ultra Fine III See Instructions, # 150 each, Refills 11, Tot. Refills 11, Maintenance, T2DM E11.9 for injecting insulin 4x daily, 12/17/19 4:07:00 EDT, Compound, 176, cm, 12/16/19 9:46:00 EDT, Height Start Date: 12/17/19 Status: OrderedPepcid Tablet 40, mg, 2 times a day, 0, 0, 12/02/07 16:57:18, Print NUHA Number, [id number], Constant Indicator Start Date: 12/02/07 Status: OrderedPLASTIC [...]
--- OUTSIDE RECORDS SUMMARY | 2022-02-26 20:25 | XMS_ITS | Continuity of Care Document ---
:1965 Author Organization [facility] Endocrinology and D [facility] Address [address] [place] [address]- Care Team Providers Name Role Phone Mando Turpin MD Primary Care Physician Encounter [facility] [place] Date(s): 07/23/20 - 08/22/20 [facility] Endocrinology and Diabetes [address] [place] [id number] Allergies, Adverse Reactions, Alerts Substance Reaction Severity Status metformin1 DIARRHEA Active 1Michelle, Shade Cutter, states the patient has been taking Metformin [...] 0, 0, 12/02/07 16:54:52, Print NUHA Number, [id number], Constant Indicator Start Date: 12/02/07 Status: Orderedlithium [...] 0, 0, 12/02/07 16:56:34, Print NUHA Number, [id number], Constant Indicator Start Date: 12/02/07 Status: OrderedNovoLOG [...] Date: 07/27/20 Stop Date: 02/08/21 Status: OrderedPen [place], 31 G x 8 mm BD Ultra Fine III See Instructions, # 150 each, Refills 11, Tot. Refills 11, Maintenance, T2DM E11.9 for injecting insulin 4x daily, 12/17/19 4:07:00 EDT, Compound, 176, cm, 12/16/19 9:46:00 EDT, Height Start Date: 12/17/19 Status: OrderedPepcid Tablet 40, mg, 2 times a day, 0, 0, 12/02/07 16:57:18, Print NUHA Number, [id number], Constant Indicator Start Date: 12/02/07 Status: OrderedPLASTIC [...]
--- OUTSIDE RECORDS SUMMARY | 2022-02-26 20:25 | XMS_ITS | Continuity of Care Document ---
:1965 Author Organization [facility] Address [address] [place] [phone]- Care Team Providers Name Role Phone Papi GONSALVES, Mando Bearden Primary Care Physician [place] [facility] [place] 08[place]20 - 09/28/20 [facility]ocr[facility] Diabetes [address] [place] [address]- Allergies, Adverse Reactions, Alerts Substance Reaction Severity Status metformin1 DIARRHEA Active 1Michelle, Story Writer, states the patient has been taking Metformin [...] 0, 0, 12/02/07 16:54:52, Print NUHA Number, [id number], Constant Indicator Start Date: 12/02/07 Status: Orderedlithium [...] 0, 0, 12/02/07 16:56:34, Print NUHA Number, [id number], Constant Indicator Start Date: 12/02/07 Status: OrderedNovoLOG [...] 12/16/19 9:46:00... Start Date: 08/30/20 Status: OrderedPen [place], 31 G x 8 mm BD Ultra Fine III See Instructions, # 150 each, Refills 11, Tot. Refills 11, Maintenance, T2DM E11.9 for injecting insulin 4x daily, 12/17/19 4:07:00 EDT, Compound, 176, cm, 12/16/19 9:46:00 EDT, Height Start Date: 12/17/19 Status: OrderedPepcid Tablet 40, mg, 2 times a day, 0, 0, 12/02/07 16:57:18, Print NUHA Number, [id number], Constant Indicator Start Date: 12/02/07 Status: OrderedPLASTIC [...]
--- OUTSIDE RECORDS SUMMARY | 2022-02-26 20:25 | XMS_ITS | Continuity of Care Document ---
:1965 Author Organization [facility] Address [address] [place] [address]- Care Team Providers Name Role Phone Papi GONSALVES, Mando Bearden Primary Care Physician Encounter [facility] [place] Date(s): 01/28/21 - 02/27/21 [facility] Endocrinology and Diabetes [address] [place] [id number] Allergies, Adverse Reactions, Alerts Substance Reaction Severity Status metformin1 DIARRHEA Active Clozaril Active 1Michelle, Bowl Attendant, states the patient has been taking Metformin [...] 0, 0, 12/02/07 16:54:52, Print NUHA Number, [id number], Constant Indicator Start Date: 12/02/07 Status: Orderedlithium [...] 0, 0, 12/02/07 16:56:34, Print NUHA Number, [id number], Constant Indicator Start Date: 12/02/07 Status: OrderedOne [...] Infusion Every... Start Date: 10/08/20 Status: OrderedPen [place], 31 G x 8 mm BD Ultra Fine III See Instructions, # 150 each, Refills 11, Tot. Refills 11, Maintenance, T2DM E11.9 for injecting insulin 4x daily, 12/17/19 4:07:00 EDT, Compound, 176, cm, 12/16/19 9:46:00 EDT, Height Start Date: 12/17/19 Status: OrderedPepcid Tablet 40, mg, 2 times a day, 0, 0, 12/02/07 16:57:18, Print NUHA Number, [id number], Constant Indicator Start Date: 12/02/07 Status: OrderedPLASTIC [...]
--- OUTSIDE RECORDS SUMMARY | 2022-02-26 20:25 | XMS_ITS | Continuity of Care Document ---
:1965 Author Organization [facility] Address [address] [place] [address]- Care Team Providers Name Role Phone Mando Turpin MD Primary Care Physician Encounter [facility] [place] Date(s): 12/26/21 - 01/25/22 [facility] [address] [place] [phone]- [place] Allergies, Adverse Reactions, Alerts Substance Reaction Severity Status metformin1 DIARRHEA Active Clozaril Active 1Michelle, Commissary Helper, states the patient has been taking Metformin [...] 0, 0, 12/02/07 16:54:52, Print NUHA Number, [id number], Constant Indicator Start Date: 12/02/07 Status: Orderedlithium [...] 0, 0, 12/02/07 16:56:34, Print NUHA Number, [id number], Constant Indicator Start Date: 12/02/07 Status: OrderedOne [...] Infusion Every... Start Date: 10/08/20 Status: OrderedPen [place], 31 G x 8 mm BD Ultra Fine III See Instructions, # 150 each, Refills 11, Tot. Refills 11, Maintenance, T2DM E11.9 for injecting insulin 4x daily, 12/17/19 4:07:00 EDT, Compound, 176, cm, 12/16/19 9:46:00 EDT, Height Start Date: 12/17/19 Status: OrderedPepcid Tablet 40, mg, 2 times a day, 0, 0, 12/02/07 16:57:18, Print NUHA Number, [id number], Constant Indicator Start Date: 12/02/07 Status: OrderedPLASTIC [...] Team PersonnelName: Mando Turpin MD Address: [address] [place] [address] [place] [address]
--- OUTSIDE RECORDS SUMMARY | 2022-02-26 20:25 | XMS_ITS | Continuity of Care Document ---
:1965 Author Organization [facility] Address [address] [place] [phone]- Care Team Providers Name Role Phone Mando Turpin MD Primary Care Physician [place] [facility] [place] 03[place] 08/05/20 [facility]ocr[facility]ology [facility] Diabetes [address] [place] [id number] Attending Physician: Ochoa Johnson MD Admitting Physician: Ochoa Johnson MD Referring Physician: Mando Turpin MD Allergies, Adverse Reactions, Alerts Substance Reaction Severity Status metformin1 DIARRHEA [facility], Lemon Picker, states the patient has been taking Metformin [...] 0, 0, 12/02/07 16:54:52, Print NUHA Number, [id number], Constant Indicator Start Date: 12/02/07 Status: Orderedlithium [...] 0, 0, 12/02/07 16:56:34, Print NUHA Number, [id number], Constant Indicator Start Date: 12/02/07 Status: OrderedNovoLOG [...] Date: 07/27/20 Stop Date: 02/08/21 Status: OrderedPen [place], 31 G x 8 mm BD Ultra Fine III See Instructions, # 150 each, Refills 11, Tot. Refills 11, Maintenance, T2DM E11.9 for injecting insulin 4x daily, 12/17/19 4:07:00 EDT, Compound, 176, cm, 12/16/19 9:46:00 EDT, Height Start Date: 12/17/19 Status: OrderedPepcid Tablet 40, mg, 2 times a day, 0, 0, 12/02/07 16:57:18, Print NUHA Number, [id number], Constant Indicator Start Date: 12/02/07 Status: OrderedPLASTIC [...]
--- OUTSIDE RECORDS SUMMARY | 2022-02-26 20:25 | XMS_ITS | Continuity of Care Document ---
:1965 Author Organization [facility] Endocrinology and D [facility] Address [address] [place] [phone]- Care Team Providers Name Role Phone Mando Turpin MD Primary Care Physician Encounter [facility] Date(s): 10/02/20 - 11/01/20 [facility] Endocrinology and Diabetes [address] [place] [id number] Allergies, Adverse Reactions, Alerts Substance Reaction Severity Status metformin1 DIARRHEA Active Clozaril Active 1Michelle, Circular Head Saw Operator, states the patient has been [...] 0, 0, 12/02/07 16:54:52, Print NUHA Number, [id number], Constant Indicator Start Date: 12/02/07 Status: Orderedlithium [...] 0, 0, 12/02/07 16:56:34, Print NUHA Number, [id number], Constant Indicator Start Date: 12/02/07 Status: OrderedOne [...] Infusion Every... Start Date: 10/08/20 Status: OrderedPen [place], 31 G x 8 mm BD Ultra Fine III See Instructions, # 150 each, Refills 11, Tot. Refills 11, Maintenance, T2DM E11.9 for injecting insulin 4x daily, 12/17/19 4:07:00 EDT, Compound, 176, cm, 12/16/19 9:46:00 EDT, Height Start Date: 12/17/19 Status: OrderedPepcid Tablet 40, mg, 2 times a day, 0, 0, 12/02/07 16:57:18, Print NUHA Number, [id number], Constant Indicator Start Date: 12/02/07 Status: OrderedPLASTIC [...]
--- OUTSIDE RECORDS SUMMARY | 2022-02-26 20:26 | XMS_ITS | Continuity of Care Document ---
:1965 Author Organization [facility] Address [address] [place] [address]- Care Team Providers Name Role Phone Mando Turpin MD Primary Care Physician Encounter [facility] [place] Date(s): 08/22/20 - 09/21/[address] [address] Attending Physician: AdmJason paz Admitting Physician: AdmtrJason Referring Physician: AdmtrJason Allergies, Adverse Reactions, Alerts Substance Reaction Severity Status metformin1 DIARRHEA [facility], Fulfillment Mail Clerk, states the patient has been taking [...] 0, 0, 12/02/07 16:54:52, Print NUHA Number, [id number], Constant Indicator Start Date: 12/02/07 Status: Orderedlithium [...] 0, 0, 12/02/07 16:56:34, Print NUHA Number, [id number], Constant Indicator Start Date: 12/02/07 Status: OrderedNovoLOG PenFill 100 units/mL subcutaneous solution See Instructions, 6-16 units by scale 3 times a day before meals max 48 units PLEASE GIVE 1 EXTRA PEN WITH LABEL FOR USE AT PATIENTS DAY PROGRAM, # 30 mL, 11 Refills, Maintenance, 12/17/19 4:08:00 EDT,[facility], carlos Brown, 12/16/19 9:46:00... Start Date: 12/17/19 Status: OrderedOne [...] mL, 0 Refills, Maintenance, 08/30/20 16:15:00 EDT, [facility], Partial fill upon patient request if the prescription is fora schedule II opioid drug., 176, cm, 12/16/19 9:46:00... Start Date: 4/29/21 Status: OrderedPen [place], 31 G x 8 mm BD Ultra Fine III See Instructions, # 150 each, Refills 11, Tot. Refills 11, Maintenance, T2DM E11.9 for injecting insulin 4x daily, 12/17/19 4:07:00 EDT, Compound, 176, cm, 12/16/19 9:46:00 EDT, Height Start Date: 12/17/19 Status: OrderedPepcid Tablet 40, mg, 2 times a day, 0, 0, 12/02/07 16:57:18, Print NUHA Number, [id number], Constant Indicator Start Date: 12/02/07 Status: OrderedPLASTIC [...]
[2022-02-26 20:32] LABS: Glucose, Whole Blood 189 mg/dL (60-115)
[2022-02-26 20:34] LABS: COVID-19 Test Negative (Negative)
[2022-02-26 21:00] LABS: Appearance Urine Cloudy; Color Urine Yellow; Glucose Urine UA Negative (Negative); Leukocyte Esterase Urine Negative (Negative); Nitrite Urine Negative (Negative); PH 5.5 (5.0-9.0); Urine Blood Negative (Negative); Urine Ketones Negative (Negative); Urine Protein Negative (Neg-Trace)
[2022-02-26 21:14] LABS: Amphetamine Screen Urine Not Detected (Not Detect); Barbiturates, Urine Not Detected (Not Detect); Benzodiazepines Screen Urine Not Detected (Not Detect); Cannabinoid Screen Urine Not Detected (Not Detect); Cocaine Screen Urine Not Detected (Not Detect); Fentanyl, urine Not Detected (Not Detect); Opiate Screen Urine Not Detected (Not Detect); Phencyclidine Screen Urine Not Detected (Not Detect)
[2022-02-26 21:22] LABS: MANUAL DIFF FLAG NO
[2022-02-26 21:26] LABS: Basophils Absolute Auto 0.1 X10*3/uL (0.0-0.2); Basophils Percent Auto 0.8 % (0-2); Eosinophils Absolute Auto 0.1 X10*3/uL (0.0-0.4); Eosinophils Percent Auto 1.4 % (0-4); Hematocrit 34.1 % (42.0-52.0); Hemoglobin 12.3 g/dl (14.0-18.0); Imm Gran Abs Auto 0.02 X10*3/uL (0.00-0.03); Imm Gran Pct Auto 0.3 % (0.0-0.4); Lymphocytes Absolute Auto 2.1 X10*3/uL (1.2-4.9); Lymphocytes Percent Auto 33.1 % (20-40); Mean Corpuscular HGB Conc 36.1 g/dl (31.0-36.0); Mean Corpuscular Hemoglobin 34.2 pg (27.0-33.0); Mean Corpuscular Volume 94.7 fL (80.0-98.0); Mean Platelet Volume 10.2 fL (9.4-12.4); Monocytes Absolute Auto 0.7 X10*3/uL (0.1-1.2); Monocytes Percent Auto 10.1 % (2-11); Neutrophils Absolute Auto 3.5 x10*3/uL (2.0-8.3); Neutrophils Percent Auto 54.3 % (45-73); White Blood Count 6.4 X10*3/uL (4.8-10.8)
[2022-02-26 21:31] LABS: Platelet Count 92 X10*3/uL (160-400)
[2022-02-26 21:40] LABS: Acetone, serum QL Negative (Negative)
[2022-02-26 21:44] LABS: Alanine Aminotransferase 21 U/L (0-40); Alkaline Phosphatase 80 U/L (39-117); Anion Gap 15 (12-20); Aspartate Amino Transferase 16 U/L (5-37); Bilirubin Total 0.8 mg/dL (0.0-1.0); Blood Urea Nitrogen 20 mg/dL (9-16); Calcium 9.5 mg/dL (8.4-10.2); Carbon Dioxide 26 mmol/L (22-29); Chloride 103 mmol/L (96-108); Creatinine Clr Calc Pharmacy 99.1; Estimated Glomerular Filt Rate > 60; Ethanol < 10 mg/dL; Glucose Random 227 mg/dL (60-115); Magnesium 1.5 mg/dL (1.6-2.6); Potassium 4.7 mmol/L (3.3-5.1); Sodium 139 mmol/L (135-145); Total Protein 6.2 g/dL (6.5-8.0)
[2022-02-26 22:05] LABS: TSH reflex Free T4 1.28 uIU/mL (0.32-4.0)
[2022-02-26 23:46] VITALS: BP 115/73; PULSE 77; RESP 18; TEMP 36.7; O2SAT 97
[2022-02-26] MEDS: Benzonatate 100 MG CAPSULE 200 MG PO (23:49)
[2022-02-27] MEDS: Magnesium Oxide 400 MG TABLET PO (02:02)
[2022-02-27] MEDS: Levothyroxine Sodium 50 MCG TABLET PO (06:50)
--- NOTE | 2022-02-27 07:23 | PC.NURSE ---
Patient slept through the night, no distress observed/reported, medication compliant, behavior appropriate and non concerning, patient engaged well with [facility] disposition pending, patient will be reevaluated by [facility] in the morning, VSS, will continue to monitor.
[2022-02-27] MEDS: Aspirin 81 MG TAB.CHEW PO (08:32)
[2022-02-27] MEDS: Perphenazine 8 MG TABLET PO (08:32)
[2022-02-27] MEDS: Perphenazine 4 MG TABLET PO (08:32)
[2022-02-27] MEDS: Atorvastatin Calcium 10 MG TABLET PO (08:32)
[2022-02-27] MEDS: Famotidine 20 MG TABLET PO (08:33)
[2022-02-27] MEDS: Sennosides 8.6 MG TABLET 17.2 MG PO (08:33)
[2022-02-27] MEDS: Cholecalciferol (Vitamin D3) 25 MCG TABLET PO (08:33)
[2022-02-27] MEDS: lisinopriL 5 MG TABLET PO (08:33)
[2022-02-27] MEDS: Ibuprofen 600 MG TABLET PO (09:34)
--- NOTE | 2022-02-27 09:51 | PC.NURSE ---
PT seen by Jennifer, cleared for discharge. PT aware of plan.
== END 2022-02-27 10:07 | disposition home or self-care (01) ==
PROVIDERS: Nurse Practitioner Family; Emergency Provider Emergency Medicine Emergency Medical Services; PCP Internal Medicine
DX: F33.1 Major depressive disorder, recurrent, moderate (principal); F25.9 Schizoaffective disorder, unspecified; F41.1 Generalized anxiety disorder; F43.0 Acute stress reaction; F17.210 Nicotine dependence, cigarettes, uncomplicated; E11.9 Type 2 diabetes mellitus without complications; Z20.822 Contact with and (suspected) exposure to COVID-19; Z79.4 Long term (current) use of insulin; Z79.899 Other long term (current) drug therapy; Z71.6 Tobacco abuse counseling
CPT/HCPCS: 36415; 71046; 80053; 80307; 81003; 82009; 82077; 82947; 83735; 84443; 85025; 87635; 99284

== ENCOUNTER 2022-04-25 13:26 | Outpatient (REF) | payer OTHER, SELFPAY ==
--- NOTE | ~2022-04-25 | MR_ITS ---
EXAMINATION: MR KIDNEY WITH IV CONTRAST CLINICAL INFORMATION: Follow-up renal mass COMPARISON: Previous MR of the kidney most recent October [address] most recent July 2021 TECHNIQUE: Sagittal axial and coronal sequences through the abdomen with and without contrast. Patient received 10 mL intravenous Gadavist contrast. FINDINGS: Lung bases are clear. Liver is normal in size, shape and signal. No focal liver lesion. The gallbladder is normal. There is no biliary duct dilatation. Pancreas is normal. The spleen is normal. The adrenal glands are normal. There is stable appearance of the mass in the upper pole of the right kidney. This is low signal on T1-weighted sequences, heterogeneous in signal on T2-weighted sequences and demonstrates heterogeneous enhancement. This measures 1.7 cm. This does not appear appreciably changed from previous recent exams. There are small bilateral renal cysts. The kidneys are otherwise unremarkable. Mild diverticulosis of the colon. Visualized bowel is otherwise unremarkable. Vascular structures are unremarkable. No ascites or adenopathy. No hernia. Bone marrow signal is normal. MR/MR kidney wo/w con IMPRESSION: Stable heterogeneously enhancing 1.7 cm mass in the upper pole of the right kidney. Small bilateral renal cysts.
== END 2022-04-25 13:27 | disposition home or self-care (01) ==
LOC: HO.MRI 13:26
PROVIDERS: Visit Provider Urology
DX: N28.89 Other specified disorders of kidney and ureter (principal)
CPT/HCPCS: 74181

== ENCOUNTER 2022-04-29 11:49 | Inpatient (IN) | payer OTHER, SELFPAY ==
--- NOTE | ~2022-04-29 | XR_ITS ---
EXAMINATION: XR FOOT, LEFT CLINICAL INFORMATION: Moderate to severe foot pain COMPARISON: None TECHNIQUE: AP, lateral, and oblique views of the left foot. FINDINGS: Some mild degenerative changes are present at the TMT joints. Some minimal degenerative changes are seen at the interphalangeal joints. A large calcaneal osteophyte present at the insertion of the Achilles tendon. No acute fractures are seen. XR/XR foot LT min 3V IMPRESSION: Mild degenerative changes as described above. No acute finding.
[2022-04-29 12:10] VITALS: BP 135/80; PULSE 96; RESP 17; TEMP 36.6; O2SAT 97; BMI 29.5
--- OUTSIDE RECORDS SUMMARY | 2022-04-29 12:46 | XMS_ITS | Continuity of Care Document ---
:1965 Author Organization [facility] Address [address] [place] [phone]- Care Team Providers Name Role Phone Mando Turpin MD Primary Care Physician Encounter [facility] [place] Date(s): 03/07/22 - 04/06/22 [facility] [address] [place] [phone]- [place] Allergies, Adverse Reactions, Alerts Substance Reaction Severity Status metformin1 DIARRHEA Active Clozaril Active 1Michelle, Collar Packer, states the patient has been taking Metformin [...] 0, 0, 12/02/07 16:54:52, Print NUHA Number, [id number], Constant Indicator Start Date: 12/02/07 Status: Orderedlithium [...] 0, 0, 12/02/07 16:56:34, Print NUHA Number, [id number], Constant Indicator Start Date: 12/02/07 Status: OrderedOne [...] Infusion Every... Start Date: 10/08/20 Status: OrderedPen [place], 31 G x 8 mm BD Ultra Fine III See Instructions, # 150 each, Refills 11, Tot. Refills 11, Maintenance, T2DM E11.9 for injecting insulin 4x daily, 12/17/19 4:07:00 EDT, Compound, 176, cm, 12/16/19 9:46:00 EDT, Height Start Date: 12/17/19 Status: OrderedPepcid Tablet 40, mg, 2 times a day, 0, 0, 12/02/07 16:57:18, Print NUHA Number, [id number], Constant Indicator Start Date: 12/02/07 Status: OrderedPLASTIC [...] Schizophrenia Confirmed Active Patient Care team information Care Team PersonnelName: Papi GONSALVES, Mando Bearden Position: Reference Physician Member Role: PCP Address: Address: [address] [place] [address] [place] [phone]- Name: Jeremiah Ocasio RN Position: S RN Member Role: Primary Care Nurse Care Team Related PersonsName: YOANDY HARRINGTON Address: [address] [facility] [facility] [address] [place] [address] Name: THANIA GARNER
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
--- NOTE | 2022-04-29 14:04 | MHC.EDTECH ---
pt refusing ordered lab work
[2022-04-29 14:20] VITALS: BP 117/72; PULSE 95; RESP 18; TEMP 36.8; O2SAT 97
[2022-04-29 14:34] LABS: Amphetamine Screen Urine Not Detected (Not Detect); Barbiturates, Urine Not Detected (Not Detect); Benzodiazepines Screen Urine Not Detected (Not Detect); Cannabinoid Screen Urine Not Detected (Not Detect); Cocaine Screen Urine Not Detected (Not Detect); Fentanyl, urine POSITIVE (Not Detect); Opiate Screen Urine Not Detected (Not Detect); Phencyclidine Screen Urine Not Detected (Not Detect)
[2022-04-29] MEDS: clonazePAM 1 MG TABLET PO (14:54)
--- NOTE | 2022-04-29 17:41 | PC.NURSE ---
Patient asked for meds for back pain, this rn took him motrin as requested and he threw it at this RN.
--- NOTE | 2022-04-29 19:20 | MHC.CARE ---
Jennifer smart sheet submitted
[2022-04-29 19:30] LABS: COVID-19 Test Negative (Negative); IDNOW Serial# 16C4AD1C; IDNOW Serial# BCCEAD1C; Influenza A Negative (Negative); Influenza B2 Negative (Negative)
--- NOTE | 2022-04-29 19:59 | PC.NURSE ---
pt becoming increasingly more agitated. pt making inappropriate remarks towards education and outreach coordinator. this rn discussed behavior with Dr April MD will be putting in orders for medication however medication rec needed first. this rn called pharmacist to get med rec placed as soon as possible due to pt's increased agitation and aggression. security called on standby as pt in pacing room at this time. awaiting new orders at this time
[2022-04-29] MEDS: clonazePAM 1 MG TABLET 2 MG PO (20:18)
[2022-04-29 20:19] LABS: Glucose, Whole Blood 250 mg/dL (60-115)
--- NOTE | 2022-04-29 20:22 | PC.NURSE ---
pt medicated according to mar. pt compliant with medication administration. pt made racial remark, this rn discussed with pt that is not acceptable. pt became agitated with this rn.
--- NOTE | 2022-04-29 20:43 | PHA.MEDREC ---
Pharmacy Consult ? Medication Reconciliation Pharmacy has completed the medication reconciliation.
[2022-04-29 22:24] VITALS: BP 134/90; PULSE 90; RESP 16; TEMP 36.8; O2SAT 96
[2022-04-29] MEDS: Insulin Glargine,Hum.rec.anlog 100 UNIT/ML 10 ML VIAL 48 UNIT SUBCUT (22:27)
[2022-04-29] MEDS: Metoprolol Tartrate 50 MG TABLET PO (22:28)
[2022-04-29] MEDS: TiZANidine HCL 4 MG TABLET PO (22:28)
[2022-04-29] MEDS: traZODone HCL 100 MG TABLET PO (22:28)
[2022-04-29] MEDS: Perphenazine 4 MG TABLET PO (22:28)
[2022-04-29] MEDS: Perphenazine 8 MG TABLET PO (22:28)
[2022-04-29] MEDS: Ibuprofen 600 MG TABLET PO (22:29)
[2022-04-29] MEDS: Atorvastatin Calcium 10 MG TABLET PO (22:29)
--- NOTE | 2022-04-29 22:42 | MHC.CARE ---
CARE team completed evaluation. Disposition is inpt psychiatric placement.
[2022-04-30 00:57] VITALS: BP 96/57; PULSE 69; RESP 18; TEMP 37.2; O2SAT 98
[2022-04-30] MEDS: Levothyroxine Sodium 50 MCG TABLET PO (05:08)
[2022-04-30] MEDS: Omeprazole 20 MG CAPSULE.DR PO (05:08)
--- NOTE | 2022-04-30 06:34 | PC.NURSE ---
POC was 272 at 0633 and patient still refuses his blood draws, will continue to monitor.
[2022-04-30 06:37] LABS: Glucose, Whole Blood 272 mg/dL (60-115)
[2022-04-30 07:25] VITALS: BP 123/66; PULSE 65; RESP 16; TEMP 36; O2SAT 100
[2022-04-30] MEDS: clonazePAM 0.5 MG TABLET PO ×2 (08:22→21:23)
[2022-04-30] MEDS: Perphenazine 8 MG TABLET PO ×3 (08:22→21:23)
[2022-04-30] MEDS: Multivitamin TABLET 1 TAB PO (08:22)
[2022-04-30] MEDS: lisinopriL 5 MG TABLET PO (08:22)
[2022-04-30] MEDS: Perphenazine 4 MG TABLET PO ×2 (08:22→21:23)
[2022-04-30] MEDS: Aspirin 81 MG TAB.CHEW PO (08:23)
[2022-04-30] MEDS: Magnesium Oxide 400 MG TABLET PO (08:23)
[2022-04-30] MEDS: Sennosides 8.6 MG TABLET 17.2 MG PO (08:23)
[2022-04-30] MEDS: Famotidine 20 MG TABLET 40 MG PO ×2 (08:24→21:23)
[2022-04-30] MEDS: Cholecalciferol (Vitamin D3) 25 MCG TABLET PO (08:24)
[2022-04-30] MEDS: Metoprolol Tartrate 50 MG TABLET PO ×2 (08:24→21:23)
--- NOTE | 2022-04-30 11:42 | MHC.CARE ---
Pt was accepted to [facility] for inpatient psychiatric admission, transfer to unit is pending currently.
--- NOTE | 2022-04-30 12:15 | PC.NURSE ---
Addendum entered by So Maldonado 04/30/22 12:18: S12 updated and S12b signed by Dr. Fay Original Note: Dr. Fay at bedside to [facility].
[2022-04-30 13:19] LABS: Glucose, Whole Blood 146 mg/dL (60-115)
[2022-04-30 18:00] VITALS: BP 112/65; PULSE 81; RESP 16; TEMP 36.3; O2SAT 97
[2022-04-30] MEDS: Nicotine 21 MG PATCH.TD24 TRANSDERMA (19:38)
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
[2022-04-30] MEDS: Insulin Glargine,Hum.rec.anlog 100 UNIT/ML 10 ML VIAL 48 UNIT SUBCUT (21:21)
[2022-04-30] MEDS: Desmopressin Acetate 0.2 MG TABLET PO (21:23)
[2022-04-30] MEDS: TiZANidine HCL 4 MG TABLET PO (21:23)
[2022-04-30] MEDS: Atorvastatin Calcium 10 MG TABLET PO (21:23)
[2022-04-30] MEDS: Ibuprofen 600 MG TABLET PO (21:28)
[2022-04-30 21:30] LABS: Glucose, Whole Blood 187 mg/dL (60-115)
[2022-04-30] MEDS: Throat Lozenge, Medicated LOZENGE 1 LOZENGE MUCOUS MEM (22:13)
[2022-04-30 23:21] VITALS: BMI 31.7
[2022-05-01] MEDS: Acetaminophen 325 MG TABLET PO (02:35)
[2022-05-01 09:08] LABS: Glucose, Whole Blood 104 mg/dL (60-115)
[2022-05-01 09:20] VITALS: BP 112/63; PULSE 75; RESP 18; TEMP 36.4; O2SAT 99
[2022-05-01] MEDS: Levothyroxine Sodium 50 MCG TABLET PO (09:28)
[2022-05-01] MEDS: Aspirin 81 MG TAB.CHEW PO (09:28)
[2022-05-01] MEDS: clonazePAM 0.5 MG TABLET PO ×2 (09:28→21:04)
[2022-05-01] MEDS: Multivitamin TABLET 1 TAB PO (09:28)
[2022-05-01] MEDS: Sennosides 8.6 MG TABLET 17.2 MG PO (09:28)
[2022-05-01] MEDS: Metoprolol Tartrate 50 MG TABLET PO ×2 (09:29→21:03)
[2022-05-01] MEDS: Perphenazine 8 MG TABLET PO ×3 (09:29→21:03)
[2022-05-01] MEDS: Perphenazine 4 MG TABLET PO ×2 (09:29→21:03)
[2022-05-01] MEDS: Famotidine 20 MG TABLET 40 MG PO ×2 (09:29→21:04)
[2022-05-01] MEDS: Cholecalciferol (Vitamin D3) 25 MCG TABLET PO (09:29)
[2022-05-01] MEDS: Omeprazole 20 MG CAPSULE.DR PO (09:29)
[2022-05-01] MEDS: Magnesium Oxide 400 MG TABLET PO (09:31)
[2022-05-01] MEDS: Nicotine 21 MG PATCH.TD24 TRANSDERMA (09:34)
[2022-05-01] MEDS: lisinopriL 5 MG TABLET PO (10:07)
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
[2022-05-01] MEDS: TiZANidine HCL 4 MG TABLET PO ×2 (14:27→21:03)
--- NOTE | 2022-05-01 16:19 | PC.NURSE ---
SOTO Vargas, assuming care of patient.
[2022-05-01 17:38] LABS: Glucose, Whole Blood 224 mg/dL (60-115)
[2022-05-01] MEDS: Insulin Lispro 100 UNIT/ML 3 ML VIAL SUBCUT ×2 (17:53→21:05)
[2022-05-01 20:45] VITALS: BP 105/59; PULSE 98; RESP 16; TEMP 36.4; O2SAT 98
[2022-05-01 20:54] LABS: Glucose, Whole Blood 276 mg/dL (60-115)
[2022-05-01] MEDS: Desmopressin Acetate 0.2 MG TABLET PO (21:03)
[2022-05-01] MEDS: Atorvastatin Calcium 10 MG TABLET PO (21:03)
[2022-05-01] MEDS: Insulin Glargine,Hum.rec.anlog 100 UNIT/ML 10 ML VIAL 48 UNIT SUBCUT (21:04)
[2022-05-02 08:39] LABS: Glucose, Whole Blood 203 mg/dL (60-115)
[2022-05-02 08:40] VITALS: BP 123/75; PULSE 70; RESP 20; TEMP 36.2; O2SAT 95
[2022-05-02] MEDS: lisinopriL 5 MG TABLET PO (08:46)
[2022-05-02] MEDS: Multivitamin TABLET 1 TAB PO (08:46)
[2022-05-02] MEDS: Cholecalciferol (Vitamin D3) 25 MCG TABLET PO (08:46)
[2022-05-02] MEDS: Aspirin 81 MG TAB.CHEW PO (08:46)
[2022-05-02] MEDS: clonazePAM 0.5 MG TABLET PO ×2 (08:47→20:55)
[2022-05-02] MEDS: Perphenazine 4 MG TABLET PO ×2 (08:47→20:54)
[2022-05-02] MEDS: Levothyroxine Sodium 50 MCG TABLET PO (08:47)
[2022-05-02] MEDS: Metoprolol Tartrate 50 MG TABLET PO ×2 (08:48→20:56)
[2022-05-02] MEDS: Sennosides 8.6 MG TABLET 17.2 MG PO (08:48)
[2022-05-02] MEDS: Perphenazine 8 MG TABLET PO ×3 (08:48→20:54)
[2022-05-02] MEDS: Famotidine 20 MG TABLET 40 MG PO ×2 (08:49→20:55)
[2022-05-02] MEDS: Omeprazole 20 MG CAPSULE.DR PO (08:49)
[2022-05-02] MEDS: Nicotine 21 MG PATCH.TD24 TRANSDERMA (08:50)
[2022-05-02] MEDS: Magnesium Oxide 400 MG TABLET PO (08:53)
[2022-05-02] MEDS: Ibuprofen 600 MG TABLET PO (08:58)
--- NOTE | 2022-05-02 10:38 | PC.NURSE ---
notified pt declining insulin in team.Dr Fay aware as well.
--- NOTE | 2022-05-02 13:31 | HO.PSYCHPN ---
Subjective Subjective Date of Service: 05/02/22 Reason For Visit: Sec 12, HI and SI per EMS Interim History: Patient lying in bed. Says he still depressed. No SI however. He says he does not feel comfortable talking to the people in the milieu and does not know them. Coil Repair Technician encouraged patient to get out of bed and at least attempt to be around other people and patient said he would consider it. Coil Repair Technician and patient discussed depression and he agrees to a trial of Wellbutrin. Patient does not want insulin sliding scale and refused at this morning. He said that the last time his A1c was checked it was within normal limits and his diabetes doctor only has not take insulin at night. Coil Repair Technician agreed to stop the insulin as his elevated sugars have mostly been in the low 200s. Patient wants to continue having is POC checked however. Mental Status Exam Mental Status Exam Narrative: Pt is alert and oriented; behavior is cooperative and calm; patient is not in distress; dressed in hospital attire with unkempt hair and todd, marginal hygiene; edentulous; mood is described as depressed and affect congruent, downcast; eye contact appropriate; Speech is verbose, but normal rate, volume and prosody; psychomotor retardation present; thought process is goal directed; circumstantial; Thought content is on unhappy situation at home; otherwise pertinent to relevant topics and without any delusional content, paranoid ideations or grandiosity; denies any SI/HI. Denies AVH and There is no evidence of perceptual disturbance. Patients insight and judgment are impaired. Diagnostics Vital Signs (24Hr): Vital Signs - 24 hr 05/01/22 20:45 05/02/22 08:40 Temperature 97.6 F 97.2 F Pulse Rate 98 70 Respiratory Rate 16 20 Blood Pressure 105/59 L 123/75 Pulse Oximetry 98 95 Oxygen Delivery Method Room Air Room Air BMI result Body Mass Index 31.7 Labs Labs: Laboratory Results - last 48 hr 04/30/22 05/01/22 05/01/22 21:20 09:05 17:32 POC Glucose 187 H 104 224 H 05/01/22 05/02/22 20:50 08:34 POC Glucose 276 H 203 H Medications Medications Current Medications Acetaminophen (Acetaminophen 325 Mg Tablet) 325 mg PO Q6H PRN PRN Reason: fever or pain Last Admin: 05/01/22 02:35 Dose: 325 mg Aspirin (Aspirin 81 Mg Tab.Chew) 81 mg PO DAILY [facility] Last Admin: 05/02/22 08:46 Dose: 81 mg Atorvastatin Calcium (Atorvastatin Calcium 10 Mg Tablet) 10 mg PO BEDTIME [facility] Last Admin: 05/01/22 21:03 Dose: 10 mg Benzocaine (Throat Lozenge, Medicated Lozenge) 1 lozenge MUCOUS MEM Q2H PRN PRN Reason: Sore Throat Last Admin: 04/30/22 22:13 Dose: 1 lozenge Bismuth Subsalicylate (Bismuth Subsalicylate Liquid 524 Mg/30 Ml Oral.Susp) 525 mg PO DAILY PRN PRN Reason: INDEGESTION Clonazepam (Clonazepam 0.5 Mg Tablet) 0.5 mg PO BID [facility] Last Admin: 05/02/22 08:47 Dose: 0.5 mg Desmopressin Acetate (Desmopressin Acetate 0.2 Mg Tablet) 0.2 mg PO BEDTIME [facility] Last Admin: 05/01/22 21:03 Dose: 0.2 mg Dextrose (Dextrose 50 % 25 Gm/50 Ml Syringe) 25 gm IVPUSH Q15M PRN; Protocol PRN Reason: per Hypoglycemia Standing Ord. Famotidine (Famotidine 20 Mg Tablet) 40 mg PO BID [facility] Last Admin: 05/02/22 08:49 Dose: 40 mg Glucose (Glucose Gel 15 Gm Gel..Gram.) 15 gm PO Q15M PRN; Protocol PRN Reason: per Hypoglycemia Standing Ord. Ibuprofen (Ibuprofen 600 Mg Tablet) 600 mg PO TID PRN PRN Reason: for pain Last Admin: 05/02/22 08:58 Dose: 600 mg Insulin Glargine (Insulin Glargine,Hum.Rec.Anlog 100 Unit/Ml 10 Ml Vial) 48 unit SUBCUT BEDTIME [facility] Last Admin: 05/01/22 21:04 Dose: 48 unit Insulin Human Lispro (Insulin Lispro 100 Unit/Ml 3 Ml Vial) 0 unit SUBCUT QIDACHS [facility]; Protocol Stop: 05/02/22 13:41 Last Admin: 05/02/22 10:35 Dose: Not Given Lactulose (Lactulose 20 Gm/30 Ml Solution) 10 gm PO BEDTIME PRN PRN Reason: constipation Levothyroxine Sodium (Levothyroxine Sodium 50 Mcg Tablet) 50 mcg PO DAILY@0600 [facility] Last Admin: 05/02/22 08:47 Dose: 50 mcg Lisinopril (Lisinopril 5 Mg Tablet) 5 mg PO DAILY [facility]; Protocol Last Admin: 05/02/22 08:46 Dose: 5 mg Magnesium Oxide (Magnesium Oxide 400 Mg Tablet) 400 mg PO DAILY [facility] Last Admin: 05/02/22 08:53 Dose: 400 mg Metoprolol Tartrate (Metoprolol Tartrate 50 Mg Tablet) 50 mg PO BID [facility]; Protocol Last Admin: 05/02/22 08:48 Dose: 50 mg Multivitamins/Vitamin C (Multivitamin Tablet) 1 tab PO DAILY [facility] Last Admin: 05/02/22 08:46 Dose: 1 tab Nicotine (Nicotine 21 Mg Patch.Td24) 21 mg TRANSDERMA DAILY [facility] Last Admin: 05/02/22 08:50 Dose: 21 mg Nicotine Polacrilex (Nicotine Polacrilex 2 Mg Gum) 4 mg BUCCAL Q2H PRN PRN Reason: Nicotine Cravings Omeprazole (Omeprazole 20 Mg Capsule.Dr) 20 mg PO DAILY@0630 [facility] Last Admin: 05/02/22 08:49 Dose: 20 mg Perphenazine (Perphenazine 4 Mg Tablet) 4 mg PO BID [facility] Last Admin: 05/02/22 08:47 Dose: 4 mg Perphenazine (Perphenazine 8 Mg Tablet) 8 mg PO TID [facility] Last Admin: 05/02/22 08:48 Dose: 8 mg Senna (Sennosides 8.6 Mg Tablet) 17.2 mg PO DAILY [facility] Last Admin: 05/02/22 08:48 Dose: 17.2 mg Tizanidine HCl (Tizanidine Hcl 4 Mg Tablet) 4 mg PO BEDTIME [facility] Last Admin: 05/01/22 21:03 Dose: 4 mg Tizanidine HCl (Tizanidine Hcl 4 Mg Tablet) 4 mg PO DAILY PRN PRN Reason: back muscle pain Trazodone HCl (Trazodone Hcl 100 Mg Tablet) 100 mg PO BEDTIME PRN PRN Reason: Insomnia Last Admin: 04/29/22 22:28 Dose: 100 mg Vitamin D (Cholecalciferol (Vitamin D3) 25 Mcg Tablet) 25 mcg PO DAILY [facility] Last Admin: 05/02/22 08:46 Dose: 25 mcg Allergies Allergies Allergy/AdvReac Type Severity Reaction Status Date / Time clozapine [From Clozaril] Allergy Mild ringing in Verified 03/18/22 12:41 ears, pain, leukopenia trifluoperazine Allergy Tongue Verified 03/18/22 12:41 [From Stelazine] Swelling Assessment & Plan Assessment & Plan (1) Schizophrenia: Status: Acute Code(s): F20.9 - Schizophrenia, unspecified Plan Patient is a 56-year-old male on a Community [employer] and with history of schizoaffective disorder, on a Section 12b, who presents for depression and suicidal threat in the face of missing some medication doses. -patient reports no longer suicidal. He knows his medications and wants to remain on them saying he knows he has a chemical imbalance -social work corroborates that patient did in fact have some missed doses due to staffing issues at [facility] housing apartment -patient complains of chronic lower back pain that his PCP said was arthritis; asks for increase in muscle relaxant 05/02 patient remains depressed but no SI. Agrees to trial of Wellbutrin for depression. Wants sliding scale insulin removed. Patient's elevated sugars have been mostly in the low 200s and he does not take sliding scale insulin at home. Will DC Plan: Section 12b Q 15 minute checks START Wellbutrin IR 100 mg daily for depression; if tolerated can be converted to long-acting XL Continue home medication regimen Continue POC DC sliding scale. Patient refuses Added extra dose of muscle relaxant p.r.n. Patient educated on: diagnosis, medication risk/benefits and medical condition Informed Consent: understands Reason for contiued inpatient stay Substantial Risk for: rapid decompensation Time Spent With Patient Time: Total time managing care of this patient today ____ minutes.
[2022-05-02] MEDS: hydrOXYzine HCL 25 MG TABLET PO (18:40)
[2022-05-02] MEDS: TiZANidine HCL 4 MG TABLET PO ×3 (19:40→21:36)
[2022-05-02 20:06] LABS: Glucose, Whole Blood 226 mg/dL (60-115)
[2022-05-02] MEDS: Throat Lozenge, Medicated LOZENGE 1 LOZENGE MUCOUS MEM (20:24)
[2022-05-02 20:48] LABS: Glucose, Whole Blood 246 mg/dL (60-115)
[2022-05-02] MEDS: Desmopressin Acetate 0.2 MG TABLET PO (20:54)
[2022-05-02] MEDS: Atorvastatin Calcium 10 MG TABLET PO (20:56)
[2022-05-02] MEDS: Insulin Glargine,Hum.rec.anlog 100 UNIT/ML 10 ML VIAL 48 UNIT SUBCUT (20:57)
[2022-05-02 21:30] VITALS: BP 134/91; PULSE 101; TEMP 36.7; O2SAT 97
[2022-05-03 08:31] LABS: Glucose, Whole Blood 166 mg/dL (60-115)
[2022-05-03] MEDS: Nicotine 21 MG PATCH.TD24 TRANSDERMA (09:03)
[2022-05-03] MEDS: Sennosides 8.6 MG TABLET 17.2 MG PO (09:04)
[2022-05-03] MEDS: Aspirin 81 MG TAB.CHEW PO (09:04)
[2022-05-03] MEDS: Perphenazine 4 MG TABLET PO ×2 (09:05→21:48)
[2022-05-03] MEDS: buPROPion HCL 100 MG TABLET PO (09:05)
[2022-05-03] MEDS: Famotidine 20 MG TABLET 40 MG PO ×2 (09:05→21:48)
[2022-05-03] MEDS: Ibuprofen 600 MG TABLET PO (09:05)
[2022-05-03] MEDS: Metoprolol Tartrate 50 MG TABLET PO (09:06)
[2022-05-03] MEDS: lisinopriL 5 MG TABLET PO (09:06)
[2022-05-03] MEDS: Multivitamin TABLET 1 TAB PO (09:06)
[2022-05-03] MEDS: Levothyroxine Sodium 50 MCG TABLET PO (09:06)
[2022-05-03] MEDS: Cholecalciferol (Vitamin D3) 25 MCG TABLET PO (09:07)
[2022-05-03] MEDS: Perphenazine 8 MG TABLET PO ×3 (09:07→21:47)
[2022-05-03] MEDS: clonazePAM 0.5 MG TABLET PO ×2 (09:07→21:48)
[2022-05-03] MEDS: Magnesium Oxide 400 MG TABLET PO (09:08)
[2022-05-03 09:33] VITALS: BP 131/79; PULSE 77; RESP 16; TEMP 36.5; O2SAT 97
[2022-05-03] MEDS: Omeprazole 20 MG CAPSULE.DR PO (10:30)
--- NOTE | 2022-05-03 13:20 | HO.PSYCHPN ---
Subjective Subjective Date of Service: 05/03/22 Reason For Visit: Sec 12, HI and SI per EMS Interim History: Patient lying in bed. Says he wants to be here a couple of days. Signed a CV. Says he wasn't tryign to hurt himself and that it was [facility]'s fault for not getting his medications because they didn't get him a nurse. Says he still depressed. No SI however. He says he does not feel comfortable talking to the people in the milieu and does not know them. Said disparaging comments about foreign medical graduate physicians. Tolerating medications. Review of Systems Review of Systems Pertinent positives and negatives as stated in HPI. Mental Status Exam Mental Status Exam Narrative: Pt is alert and oriented; behavior is cooperative and calm; patient is not in distress; dressed in hospital attire with unkempt hair and todd, marginal hygiene; edentulous; mood is described as depressed and affect congruent, downcast; eye contact appropriate; Speech is verbose, but normal rate, volume and prosody; psychomotor retardation present; thought process is goal directed; circumstantial; Thought content is on unhappy situation at home; otherwise pertinent to relevant topics and without any delusional content, paranoid ideations or grandiosity; denies any SI/HI. Denies AVH and There is no evidence of perceptual disturbance. Patients insight and judgment are impaired. Diagnostics Vital Signs (24Hr): Vital Signs - 24 hr 05/02/22 21:30 05/03/22 09:33 Temperature 98.1 F 97.7 F Pulse Rate 101 H 77 Respiratory Rate 16 Blood Pressure 134/91 H 131/79 Pulse Oximetry 97 97 Oxygen Delivery Method Room Air Room Air BMI result Body Mass Index 31.7 Labs Labs: Laboratory Results - last 48 hr 05/01/22 05/02/22 05/02/22 20:50 08:34 16:44 POC Glucose 276 H 203 H 226 H 05/02/22 05/03/22 20:42 08:26 POC Glucose 246 H 166 H Medications Medications Current Medications Acetaminophen (Acetaminophen 325 Mg Tablet) 325 mg PO Q6H PRN PRN Reason: fever or pain Last Admin: 05/01/22 02:35 Dose: 325 mg Aspirin (Aspirin 81 Mg Tab.Chew) 81 mg PO DAILY [facility] Last Admin: 05/03/22 09:04 Dose: 81 mg Atorvastatin Calcium (Atorvastatin Calcium 10 Mg Tablet) 10 mg PO BEDTIME [facility] Last Admin: 05/02/22 20:56 Dose: 10 mg Benzocaine (Throat Lozenge, Medicated Lozenge) 1 lozenge MUCOUS MEM Q2H PRN PRN Reason: Sore Throat Last Admin: 05/03/22 17:54 Dose: 1 lozenge Bismuth Subsalicylate (Bismuth Subsalicylate Liquid 524 Mg/30 Ml Oral.Susp) 525 mg PO DAILY PRN PRN Reason: INDEGESTION Bupropion HCl (Bupropion Hcl 100 Mg Tablet) 100 mg PO DAILY [facility] Last Admin: 05/03/22 09:05 Dose: 100 mg Clonazepam (Clonazepam 0.5 Mg Tablet) 0.5 mg PO BID [facility] Last Admin: 05/03/22 09:07 Dose: 0.5 mg Desmopressin Acetate (Desmopressin Acetate 0.2 Mg Tablet) 0.2 mg PO BEDTIME [facility] Last Admin: 05/02/22 20:54 Dose: 0.2 mg Dextrose (Dextrose 50 % 25 Gm/50 Ml Syringe) 25 gm IVPUSH Q15M PRN; Protocol PRN Reason: per Hypoglycemia Standing Ord. Famotidine (Famotidine 20 Mg Tablet) 40 mg PO BID [facility] Last Admin: 05/03/22 09:05 Dose: 40 mg Glucose (Glucose Gel 15 Gm Gel..Gram.) 15 gm PO Q15M PRN; Protocol PRN Reason: per Hypoglycemia Standing Ord. Hydroxyzine HCl (Hydroxyzine Hcl 25 Mg Tablet) 25 mg PO Q6H PRN PRN Reason: anxiety Last Admin: 05/02/22 18:40 Dose: 25 mg Ibuprofen (Ibuprofen 600 Mg Tablet) 600 mg PO TID PRN PRN Reason: for pain Last Admin: 05/03/22 09:05 Dose: 600 mg Insulin Glargine (Insulin Glargine,Hum.Rec.Anlog 100 Unit/Ml 10 Ml Vial) 48 unit SUBCUT BEDTIME [facility] Last Admin: 05/02/22 20:57 Dose: 48 unit Lactulose (Lactulose 20 Gm/30 Ml Solution) 10 gm PO BEDTIME PRN PRN Reason: constipation Levothyroxine Sodium (Levothyroxine Sodium 50 Mcg Tablet) 50 mcg PO DAILY@0600 [facility] Last Admin: 05/03/22 09:06 Dose: 50 mcg Lisinopril (Lisinopril 5 Mg Tablet) 5 mg PO DAILY [facility]; Protocol Last Admin: 05/03/22 09:06 Dose: 5 mg Magnesium Oxide (Magnesium Oxide 400 Mg Tablet) 400 mg PO DAILY [facility] Last Admin: 05/03/22 09:08 Dose: 400 mg Metoprolol Tartrate (Metoprolol Tartrate 50 Mg Tablet) 50 mg PO BID [facility]; Protocol Last Admin: 05/03/22 09:06 Dose: 50 mg Multivitamins/Vitamin C (Multivitamin Tablet) 1 tab PO DAILY [facility] Last Admin: 05/03/22 09:06 Dose: 1 tab Nicotine (Nicotine 21 Mg Patch.Td24) 21 mg TRANSDERMA DAILY [facility] Last Admin: 05/03/22 09:03 Dose: 21 mg Nicotine Polacrilex (Nicotine Polacrilex 2 Mg Gum) 4 mg BUCCAL Q2H PRN PRN Reason: Nicotine Cravings Omeprazole (Omeprazole 20 Mg Capsule.Dr) 20 mg PO DAILY@0630 [facility] Last Admin: 05/03/22 10:30 Dose: 20 mg Perphenazine (Perphenazine 4 Mg Tablet) 4 mg PO BID [facility] Last Admin: 05/03/22 09:05 Dose: 4 mg Perphenazine (Perphenazine 8 Mg Tablet) 8 mg PO TID [facility] Last Admin: 05/03/22 15:15 Dose: 8 mg Senna (Sennosides 8.6 Mg Tablet) 17.2 mg PO DAILY [facility] Last Admin: 05/03/22 09:04 Dose: 17.2 mg Tizanidine HCl (Tizanidine Hcl 4 Mg Tablet) 4 mg PO BEDTIME [facility] Last Admin: 05/02/22 20:55 Dose: 4 mg Tizanidine HCl (Tizanidine Hcl 4 Mg Tablet) 4 mg PO DAILY PRN PRN Reason: back muscle pain Last Admin: 05/03/22 15:37 Dose: 4 mg Trazodone HCl (Trazodone Hcl 100 Mg Tablet) 100 mg PO BEDTIME PRN PRN Reason: Insomnia Last Admin: 04/29/22 22:28 Dose: 100 mg Vitamin D (Cholecalciferol (Vitamin D3) 25 Mcg Tablet) 25 mcg PO DAILY [facility] Last Admin: 05/03/22 09:07 Dose: 25 mcg Allergies Allergies Allergy/AdvReac Type Severity Reaction Status Date / Time clozapine [From Clozaril] Allergy Mild ringing in Verified 03/18/22 12:41 ears, pain, leukopenia trifluoperazine Allergy Tongue Verified 03/18/22 12:41 [From Stelazine] Swelling Assessment & Plan Assessment & Plan (1) Schizophrenia: Status: Acute Code(s): F20.9 - Schizophrenia, unspecified Plan Patient is a 56-year-old male on a [employer] and with history of schizoaffective disorder, on a Section 12b, who presents for depression and suicidal threat in the face of missing some medication doses. -patient reports no longer suicidal. He knows his medications and wants to remain on them saying he knows he has a chemical imbalance -social work corroborates that patient did in fact have some missed doses due to staffing issues at [facility] housing apartment -patient complains of chronic lower back pain that his PCP said was arthritis; asks for increase in muscle relaxant 05/02 patient remains depressed but no SI. Agrees to trial of Wellbutrin for depression. Wants sliding scale insulin removed. Patient's elevated sugars have been mostly in the low 200s and he does not take sliding scale insulin at home. Will DC Plan: Section 12b Q 15 minute checks START Wellbutrin IR 100 mg daily for depression; if tolerated can be converted to long-acting XL Continue home medication regimen Continue POC DC sliding scale. Patient refuses Added extra dose of muscle relaxant p.r.n. 05/03: Signed CV accepted. Continue current plan. Reason for contiued inpatient stay Substantial Risk for: harm to self, inability to function and rapid decompensation Time Spent With Patient Time: Total time managing care of this patient today ____ minutes.
[2022-05-03] MEDS: TiZANidine HCL 4 MG TABLET PO ×2 (15:37→21:48)
[2022-05-03] MEDS: Throat Lozenge, Medicated LOZENGE 1 LOZENGE MUCOUS MEM (17:54)
[2022-05-03] MEDS: Insulin Glargine,Hum.rec.anlog 100 UNIT/ML 10 ML VIAL 48 UNIT SUBCUT (21:46)
[2022-05-03] MEDS: traZODone HCL 100 MG TABLET PO (21:47)
[2022-05-03] MEDS: Atorvastatin Calcium 10 MG TABLET PO (21:47)
[2022-05-03] MEDS: Desmopressin Acetate 0.2 MG TABLET PO (21:48)
[2022-05-03 21:53] VITALS: BP 104/58; PULSE 92; TEMP 36.4; O2SAT 97
[2022-05-03 22:05] LABS: Glucose, Whole Blood 251 mg/dL (60-115)
[2022-05-04 08:44] LABS: Glucose, Whole Blood 140 mg/dL (60-115)
[2022-05-04] MEDS: Levothyroxine Sodium 50 MCG TABLET PO (08:45)
[2022-05-04] MEDS: Magnesium Oxide 400 MG TABLET PO (08:45)
[2022-05-04] MEDS: Famotidine 20 MG TABLET 40 MG PO ×2 (08:45→21:08)
[2022-05-04] MEDS: Aspirin 81 MG TAB.CHEW PO (08:45)
[2022-05-04] MEDS: buPROPion HCL 100 MG TABLET PO (08:45)
[2022-05-04] MEDS: Perphenazine 4 MG TABLET PO ×2 (08:45→21:07)
[2022-05-04] MEDS: Nicotine 21 MG PATCH.TD24 TRANSDERMA (08:45)
[2022-05-04] MEDS: Sennosides 8.6 MG TABLET 17.2 MG PO (08:45)
[2022-05-04] MEDS: Cholecalciferol (Vitamin D3) 25 MCG TABLET PO (08:45)
[2022-05-04] MEDS: lisinopriL 5 MG TABLET PO (08:45)
[2022-05-04] MEDS: clonazePAM 0.5 MG TABLET PO ×2 (08:45→21:08)
[2022-05-04] MEDS: Perphenazine 8 MG TABLET PO ×3 (08:45→21:08)
[2022-05-04] MEDS: Multivitamin TABLET 1 TAB PO (08:45)
[2022-05-04] MEDS: Omeprazole 20 MG CAPSULE.DR PO (08:46)
[2022-05-04 09:10] VITALS: BP 98/58; PULSE 73; RESP 16; TEMP 36.4; O2SAT 95
--- NOTE | 2022-05-04 14:05 | HO.PSYCHPN ---
Subjective Subjective Date of Service: 05/04/22 Reason For Visit: Sec 12, HI and SI per EMS Interim History: Patient lying in bed. Patient irritable and impolite. Says he wants to leave. I don't want to be here. Insulting language. I have my reasons.. you almost killed me last time I was here. You or someone that worked here.. Fredo and terse. Denies SI. Tolerating and compliant with medications. Review of Systems Review of Systems Pertinent positives and negatives as stated in HPI. Mental Status Exam Mental Status Exam Narrative: Pt is alert and oriented; behavior is dismissive and hostile; patient is not in distress; dressed in hospital attire with unkempt hair and todd, marginal hygiene; edentulous; mood is described as depressed and affect congruent, downcast; eye contact appropriate; Speech is verbose, but normal rate, volume and prosody; psychomotor retardation present; thought process is goal directed; circumstantial; Thought content is on unhappy situation at home; otherwise pertinent to relevant topics and without any delusional content, paranoid ideations or grandiosity; denies any SI/HI. Denies AVH and There is no evidence of perceptual disturbance. Patients insight and judgment are impaired. Diagnostics Vital Signs (24Hr): Vital Signs - 24 hr 05/03/22 21:53 05/04/22 09:10 Temperature 97.5 F 97.6 F Pulse Rate 92 73 Respiratory Rate 16 Blood Pressure 104/58 L 98/58 L Pulse Oximetry 97 95 Oxygen Delivery Method Room Air Room Air BMI result Body Mass Index 31.7 Labs Labs: Laboratory Results - last 48 hr 05/02/22 05/02/22 05/03/22 16:44 20:42 08:26 POC Glucose 226 H 246 H 166 H 05/03/22 05/04/22 05/04/22 21:44 08:37 16:58 POC Glucose 251 H 140 H 210 H Medications Medications Current Medications Acetaminophen (Acetaminophen 325 Mg Tablet) 325 mg PO Q6H PRN PRN Reason: fever or pain Last Admin: 05/01/22 02:35 Dose: 325 mg Aspirin (Aspirin 81 Mg Tab.Chew) 81 mg PO DAILY [facility] Last Admin: 05/04/22 08:45 Dose: 81 mg Atorvastatin Calcium (Atorvastatin Calcium 10 Mg Tablet) 10 mg PO BEDTIME [facility] Last Admin: 05/03/22 21:47 Dose: 10 mg Benzocaine (Throat Lozenge, Medicated Lozenge) 1 lozenge MUCOUS MEM Q2H PRN PRN Reason: Sore Throat Last Admin: 05/03/22 17:54 Dose: 1 lozenge Bismuth Subsalicylate (Bismuth Subsalicylate Liquid 524 Mg/30 Ml Oral.Susp) 525 mg PO DAILY PRN PRN Reason: INDEGESTION Bupropion HCl (Bupropion Hcl 100 Mg Tablet) 100 mg PO DAILY [facility] Last Admin: 05/04/22 08:45 Dose: 100 mg Clonazepam (Clonazepam 0.5 Mg Tablet) 0.5 mg PO BID [facility] Last Admin: 05/04/22 08:45 Dose: 0.5 mg Desmopressin Acetate (Desmopressin Acetate 0.2 Mg Tablet) 0.2 mg PO BEDTIME [facility] Last Admin: 05/03/22 21:48 Dose: 0.2 mg Dextrose (Dextrose 50 % 25 Gm/50 Ml Syringe) 25 gm IVPUSH Q15M PRN; Protocol PRN Reason: per Hypoglycemia Standing Ord. Famotidine (Famotidine 20 Mg Tablet) 40 mg PO BID [facility] Last Admin: 05/04/22 08:45 Dose: 40 mg Glucose (Glucose Gel 15 Gm Gel..Gram.) 15 gm PO Q15M PRN; Protocol PRN Reason: per Hypoglycemia Standing Ord. Hydroxyzine HCl (Hydroxyzine Hcl 25 Mg Tablet) 25 mg PO Q6H PRN PRN Reason: anxiety Last Admin: 05/04/22 15:47 Dose: 25 mg Ibuprofen (Ibuprofen 600 Mg Tablet) 600 mg PO TID PRN PRN Reason: for pain Last Admin: 05/03/22 09:05 Dose: 600 mg Insulin Glargine (Insulin Glargine,Hum.Rec.Anlog 100 Unit/Ml 10 Ml Vial) 48 unit SUBCUT BEDTIME [facility] Last Admin: 05/03/22 21:46 Dose: 48 unit Lactulose (Lactulose 20 Gm/30 Ml Solution) 10 gm PO BEDTIME PRN PRN Reason: constipation Levothyroxine Sodium (Levothyroxine Sodium 50 Mcg Tablet) 50 mcg PO DAILY@0600 [facility] Last Admin: 05/04/22 08:45 Dose: 50 mcg Lisinopril (Lisinopril 5 Mg Tablet) 5 mg PO DAILY [facility]; Protocol Last Admin: 05/04/22 08:45 Dose: 5 mg Magnesium Oxide (Magnesium Oxide 400 Mg Tablet) 400 mg PO DAILY [facility] Last Admin: 05/04/22 08:45 Dose: 400 mg Metoprolol Tartrate (Metoprolol Tartrate 50 Mg Tablet) 50 mg PO BID [facility]; Protocol Last Admin: 05/04/22 09:05 Dose: Not Given Multivitamins/Vitamin C (Multivitamin Tablet) 1 tab PO DAILY [facility] Last Admin: 05/04/22 08:45 Dose: 1 tab Nicotine (Nicotine 21 Mg Patch.Td24) 21 mg TRANSDERMA DAILY [facility] Last Admin: 05/04/22 08:45 Dose: 21 mg Nicotine Polacrilex (Nicotine Polacrilex 2 Mg Gum) 4 mg BUCCAL Q2H PRN PRN Reason: Nicotine Cravings Omeprazole (Omeprazole 20 Mg Capsule.Dr) 20 mg PO DAILY@0630 [facility] Last Admin: 05/04/22 08:46 Dose: 20 mg Perphenazine (Perphenazine 4 Mg Tablet) 4 mg PO BID [facility] Last Admin: 05/04/22 08:45 Dose: 4 mg Perphenazine (Perphenazine 8 Mg Tablet) 8 mg PO TID [facility] Last Admin: 05/04/22 14:36 Dose: 8 mg Senna (Sennosides 8.6 Mg Tablet) 17.2 mg PO DAILY [facility] Last Admin: 05/04/22 08:45 Dose: 17.2 mg Tizanidine HCl (Tizanidine Hcl 4 Mg Tablet) 4 mg PO BEDTIME [facility] Last Admin: 05/03/22 21:48 Dose: 4 mg Tizanidine HCl (Tizanidine Hcl 4 Mg Tablet) 4 mg PO DAILY PRN PRN Reason: back muscle pain Last Admin: 05/04/22 14:35 Dose: 4 mg Trazodone HCl (Trazodone Hcl 100 Mg Tablet) 100 mg PO BEDTIME PRN PRN Reason: Insomnia Last Admin: 05/03/22 21:47 Dose: 100 mg Vitamin D (Cholecalciferol (Vitamin D3) 25 Mcg Tablet) 25 mcg PO DAILY [facility] Last Admin: 05/04/22 08:45 Dose: 25 mcg Allergies Allergies Allergy/AdvReac Type Severity Reaction Status Date / Time clozapine [From Clozaril] Allergy Mild ringing in Verified 11/15/22 12:41 ears, pain, leukopenia trifluoperazine Allergy Tongue Verified 03/18/22 12:41 [From Stelazine] Swelling Assessment & Plan Assessment & Plan (1) Schizophrenia: Status: Acute Code(s): F20.9 - Schizophrenia, unspecified Plan Patient is a 56-year-old male on a [employer] and with history of schizoaffective disorder, on a Section 12b, who presents for depression and suicidal threat in the face of missing some medication doses. -patient reports no longer suicidal. He knows his medications and wants to remain on them saying he knows he has a chemical imbalance -social work corroborates that patient did in fact have some missed doses due to staffing issues at [facility] housing apartment -patient complains of chronic lower back pain that his PCP said was arthritis; asks for increase in muscle relaxant 05/02 patient remains depressed but no SI. Agrees to trial of Wellbutrin for depression. Wants sliding scale insulin removed. Patient's elevated sugars have been mostly in the low 200s and he does not take sliding scale insulin at home. Will DC Plan: Section 12b Q 15 minute checks START Wellbutrin IR 100 mg daily for depression; if tolerated can be converted to long-acting XL Continue home medication regimen Continue POC DC sliding scale. Patient refuses Added extra dose of muscle relaxant p.r.n. 05/03: Signed CV accepted. Continue current plan. 05/04 Continue current plan. Reason for contiued inpatient stay Substantial Risk for: rapid decompensation Time Spent With Patient Time: Total time managing care of this patient today ____ minutes.
[2022-05-04] MEDS: TiZANidine HCL 4 MG TABLET PO ×2 (14:35→21:08)
[2022-05-04] MEDS: hydrOXYzine HCL 25 MG TABLET PO ×2 (15:47→21:08)
[2022-05-04 17:02] LABS: Glucose, Whole Blood 210 mg/dL (60-115)
[2022-05-04] MEDS: Metoprolol Tartrate 50 MG TABLET PO (21:07)
[2022-05-04] MEDS: Desmopressin Acetate 0.2 MG TABLET PO (21:07)
[2022-05-04] MEDS: traZODone HCL 100 MG TABLET PO (21:08)
[2022-05-04] MEDS: Atorvastatin Calcium 10 MG TABLET PO (21:08)
[2022-05-04] MEDS: Ibuprofen 600 MG TABLET PO (21:58)
[2022-05-04] MEDS: Acetaminophen 325 MG TABLET PO (21:58)
[2022-05-05] MEDS: traMADoL HCL 50 MG TABLET PO (00:29)
[2022-05-05 06:00] VITALS: BP 127/71; PULSE 67; RESP 18; TEMP 36.4; O2SAT 97
[2022-05-05 08:28] LABS: Glucose, Whole Blood 174 mg/dL (60-115)
[2022-05-05] MEDS: Omeprazole 20 MG CAPSULE.DR PO (08:30)
[2022-05-05] MEDS: Perphenazine 8 MG TABLET PO ×3 (08:30→21:26)
[2022-05-05] MEDS: Levothyroxine Sodium 50 MCG TABLET PO (08:31)
[2022-05-05] MEDS: Multivitamin TABLET 1 TAB PO (08:31)
[2022-05-05] MEDS: Perphenazine 4 MG TABLET PO ×2 (08:31→21:26)
[2022-05-05] MEDS: Sennosides 8.6 MG TABLET 17.2 MG PO (08:31)
[2022-05-05] MEDS: Cholecalciferol (Vitamin D3) 25 MCG TABLET PO (08:32)
[2022-05-05] MEDS: Magnesium Oxide 400 MG TABLET PO (08:32)
[2022-05-05] MEDS: clonazePAM 0.5 MG TABLET PO ×2 (08:32→21:26)
[2022-05-05] MEDS: Famotidine 20 MG TABLET 40 MG PO ×2 (08:32→21:26)
[2022-05-05] MEDS: Metoprolol Tartrate 50 MG TABLET PO ×2 (08:32→21:27)
[2022-05-05] MEDS: Aspirin 81 MG TAB.CHEW PO (08:32)
[2022-05-05] MEDS: lisinopriL 5 MG TABLET PO (08:32)
[2022-05-05] MEDS: Nicotine 21 MG PATCH.TD24 TRANSDERMA (08:33)
[2022-05-05] MEDS: Ibuprofen 600 MG TABLET PO (08:38)
[2022-05-05 12:05] LABS: Glucose, Whole Blood 237 mg/dL (60-115)
--- NOTE | 2022-05-05 13:00 | P.PNPSI_ITS ---
Subjective Subjective Date of Service: 05/05/22 Reason For Visit: Sec 12, HI and SI per EMS Interim History: Patient lying in bed. Last evening was irritable and angry. Yelling at patients and using racial slurs. Was posturing. Staff were about to call for an assist. Reviewed chart. Also discussed withnRN. Staff feel patient has been more agitated since admission and wondering about effects of medications. Wellbutrin is newest addition to his med regimen. Patient irritable and impolite. Fredo and terse. Denies SI. Had an exacerbation of his back pain last last night. Received a dose of Tramadol x 1vwhich heloed. Review of Systems Review of Systems Pertinent positives and negatives as stated in HPI. Mental Status Exam Mental Status Exam Narrative: Pt is alert and oriented; behavior is dismissive and hostile; patient is not in distress; dressed in hospital attire with unkempt hair and todd, marginal hygiene; edentulous; mood is described as depressed and affect congruent, downcast; eye contact appropriate; Speech is verbose, but normal rate, volume and prosody; psychomotor retardation present; thought process is goal directed; circumstantial; Thought content is on unhappy situation at home; otherwise pertinent to relevant topics and without any delusional content, paranoid id eations or grandiosity; denies any SI/HI. Denies AVH and There is no evidence of perceptual disturbance. Patients insight and judgment are impaired. Diagnostics Vital Signs (24Hr): Vital Signs - 24 hr 05/05/22 06:00 Temperature 97.6 F Pulse Rate 67 Respiratory Rate 18 Blood Pressure 127/71 Pulse Oximetry 97 Oxygen Delivery Method Room Air BMI result Body Mass Index 31.7 Labs Labs: Laboratory Results - last 48 hr 05/03/22 05/04/22 05/04/22 21:44 08:37 16:58 POC Glucose 251 H 140 H 210 H 05/05/22 05/05/22 08:24 12:00 POC Glucose 174 H 237 H Medications Medications Current Medications Acetaminophen (Acetaminophen 325 Mg Tablet) 325 mg PO Q6H PRN PRN Reason: fever or pain Last Admin: 05/04/22 21:58 Dose: 325 mg Aspirin (Aspirin 81 Mg Tab.Chew) 81 mg PO DAILY [facility] Last Admin: 05/05/22 08:32 Dose: 81 mg Atorvastatin Calcium (Atorvastatin Calcium 10 Mg Tablet) 10 mg PO BEDTIME [facility] Last Admin: 05/04/22 21:08 Dose: 10 mg Benzocaine (Throat Lozenge, Medicated Lozenge) 1 lozenge MUCOUS MEM Q2H PRN PRN Reason: Sore Throat Last Admin: 05/03/22 17:54 Dose: 1 lozenge Bismuth Subsalicylate (Bismuth Subsalicylate Liquid 524 Mg/30 Ml Oral.Susp) 525 mg PO DAILY PRN PRN Reason: INDEGESTION Clonazepam (Clonazepam 0.5 Mg Tablet) 0.5 mg PO BID [facility] Last Admin: 05/05/22 08:32 Dose: 0.5 mg Desmopressin Acetate (Desmopressin Acetate 0.2 Mg Tablet) 0.2 mg PO BEDTIME [facility] Last Admin: 05/04/22 21:07 Dose: 0.2 mg Dextrose (Dextrose 50 % 25 Gm/50 Ml Syringe) 25 gm IVPUSH Q15M PRN; Protocol PRN Reason: per Hypoglycemia Standing Ord. Famotidine (Famotidine 20 Mg Tablet) 40 mg PO BID [facility] Last Admin: 05/05/22 08:32 Dose: 40 mg Glucose (Glucose Gel 15 Gm Gel..Gram.) 15 gm PO Q15M PRN; Protocol PRN Reason: per Hypoglycemia Standing Ord. Hydroxyzine HCl (Hydroxyzine Hcl 25 Mg Tablet) 25 mg PO Q6H PRN PRN Reason: anxiety Last Admin: 05/04/22 21:08 Dose: 25 mg Ibuprofen (Ibuprofen 600 Mg Tablet) 600 mg PO TID PRN PRN Reason: for pain Last Admin: 05/05/22 08:38 Dose: 600 mg Insulin Glargine (Insulin Glargine,Hum.Rec.Anlog 100 Unit/Ml 10 Ml Vial) 48 unit SUBCUT BEDTIME [facility] Last Admin: 05/04/22 21:09 Dose: Not Given Lactulose (Lactulose 20 Gm/30 Ml Solution) 10 gm PO BEDTIME PRN PRN Reason: constipation Levothyroxine Sodium (Levothyroxine Sodium 50 Mcg Tablet) 50 mcg PO DAILY@0600 [facility] Last Admin: 05/05/22 08:31 Dose: 50 mcg Lisinopril (Lisinopril 5 Mg Tablet) 5 mg PO DAILY [facility]; Protocol Last Admin: 05/05/22 08:32 Dose: 5 mg Magnesium Oxide (Magnesium Oxide 400 Mg Tablet) 400 mg PO DAILY [facility] Last Admin: 05/05/22 08:32 Dose: 400 mg Metoprolol Tartrate (Metoprolol Tartrate 50 Mg Tablet) 50 mg PO BID [facility]; Protocol Last Admin: 05/05/22 08:32 Dose: 50 mg Multivitamins/Vitamin C (Multivitamin Tablet) 1 tab PO DAILY [facility] Last Admin: 05/05/22 08:31 Dose: 1 tab Nicotine (Nicotine 21 Mg Patch.Td24) 21 mg TRANSDERMA DAILY [facility] Last Admin: 05/05/22 08:33 Dose: 21 mg Nicotine Polacrilex (Nicotine Polacrilex 2 Mg Gum) 4 mg BUCCAL Q2H PRN PRN Reason: Nicotine Cravings Omeprazole (Omeprazole 20 Mg Capsule.Dr) 20 mg PO DAILY@0630 [facility] Last Admin: 05/05/22 08:30 Dose: 20 mg Perphenazine (Perphenazine 4 Mg Tablet) 4 mg PO BID [facility] Last Admin: 05/05/22 08:31 Dose: 4 mg Perphenazine (Perphenazine 8 Mg Tablet) 8 mg PO TID [facility] Last Admin: 05/05/22 14:52 Dose: 8 mg Senna (Sennosides 8.6 Mg Tablet) 17.2 mg PO DAILY [facility] Last Admin: 05/05/22 08:31 Dose: 17.2 mg Tizanidine HCl (Tizanidine Hcl 4 Mg Tablet) 4 mg PO BEDTIME [facility] Last Admin: 05/04/22 21:08 Dose: 4 mg Tizanidine HCl (Tizanidine Hcl 4 Mg Tablet) 4 mg PO DAILY PRN PRN Reason: back muscle pain Last Admin: 05/04/22 14:35 Dose: 4 mg Trazodone HCl (Trazodone Hcl 100 Mg Tablet) 100 mg PO BEDTIME PRN PRN Reason: Insomnia Last Admin: 05/04/22 21:08 Dose: 100 mg Vitamin D (Cholecalciferol (Vitamin D3) 25 Mcg Tablet) 25 mcg PO DAILY [facility] Last Admin: 05/05/22 08:32 Dose: 25 mcg Allergies Allergies Allergy/AdvReac Type Severity Reaction Status Date / Time clozapine [From Clozaril] Allergy Mild ringing in Verified 03/18/22 12:41 ears, pain, leukopenia trifluoperazine Allergy Tongue Verified 03/18/22 12:41 [From Stelazine] Swelling Assessment & Plan Assessment & Plan (1) Schizophrenia: Status: Acute Code(s): F20.9 - Schizophrenia, unspecified Plan Patient is a 56-year-old male on a [employer] and with history of schizoaffective disorder, on a Section 12b, who presents for depression and suicidal threat in the face of missing some medication doses. -patient reports no longer suicidal. He knows his medications and wants to remain on them saying he knows he has a chemical imbalance -social work corroborates that patient did in fact have some missed doses due to staffing issues at [facility] housing apartment -patient complains of chronic lower back pain that his PCP said was arthritis; asks for increase in muscle relaxant 05/02 patient remains depressed but no SI. Agrees to trial of Wellbutrin for depression. Wants sliding scale insulin removed. Patient's elevated sugars have been mostly in the low 200s and he does not take sliding scale insulin at home. Will DC Plan: Section 12b Q 15 minute checks START Wellbutrin IR 100 mg daily for depression; if tolerated can be converted to long-acting XL Continue home medication regimen Continue POC DC sliding scale. Patient refuses Added extra dose of muscle relaxant p.r.n. 05/03: Signed CV accepted. Continue current plan. 05/04 Continue current plan. 2 DC Wellbutrin to see if his agitation and irritability improve. Reason for contiued inpatient stay Substantial Risk for: harm to others, inability to function and rapid decompensation Time Spent With Patient Time: Total time managing care of this patient today ____ minutes.
[2022-05-05 18:16] LABS: Glucose, Whole Blood 217 mg/dL (60-115)
[2022-05-05 21:15] VITALS: BP 116/62; PULSE 79; RESP 18; TEMP 36.6; O2SAT 94
[2022-05-05] MEDS: Insulin Glargine,Hum.rec.anlog 100 UNIT/ML 10 ML VIAL 48 UNIT SUBCUT (21:24)
[2022-05-05] MEDS: Atorvastatin Calcium 10 MG TABLET PO (21:26)
[2022-05-05] MEDS: Desmopressin Acetate 0.2 MG TABLET PO (21:27)
[2022-05-05] MEDS: traZODone HCL 100 MG TABLET PO (21:27)
[2022-05-05] MEDS: TiZANidine HCL 4 MG TABLET PO (21:27)
[2022-05-05] MEDS: hydrOXYzine HCL 25 MG TABLET PO (21:27)
[2022-05-05 21:34] LABS: Glucose, Whole Blood 291 mg/dL (60-115)
[2022-05-06 09:10] VITALS: BP 102/62; PULSE 72; RESP 18; TEMP 36.2; O2SAT 94
[2022-05-06 09:11] LABS: Glucose, Whole Blood 193 mg/dL (60-115)
[2022-05-06] MEDS: Aspirin 81 MG TAB.CHEW PO (09:18)
[2022-05-06] MEDS: clonazePAM 0.5 MG TABLET PO ×2 (09:19→20:34)
[2022-05-06] MEDS: Levothyroxine Sodium 50 MCG TABLET PO (09:19)
[2022-05-06] MEDS: Perphenazine 4 MG TABLET PO ×2 (09:19→20:34)
[2022-05-06] MEDS: Cholecalciferol (Vitamin D3) 25 MCG TABLET PO (09:19)
[2022-05-06] MEDS: Perphenazine 8 MG TABLET PO ×3 (09:20→20:34)
[2022-05-06] MEDS: Sennosides 8.6 MG TABLET 17.2 MG PO (09:20)
[2022-05-06] MEDS: Multivitamin TABLET 1 TAB PO (09:21)
[2022-05-06] MEDS: Omeprazole 20 MG CAPSULE.DR PO (09:21)
[2022-05-06] MEDS: Famotidine 20 MG TABLET 40 MG PO ×2 (09:22→20:33)
[2022-05-06] MEDS: Magnesium Oxide 400 MG TABLET PO (09:26)
[2022-05-06 10:41] VITALS: BP 118/59; PULSE 69; RESP 18; O2SAT 94
[2022-05-06] MEDS: TiZANidine HCL 4 MG TABLET PO (10:43)
[2022-05-06] MEDS: lisinopriL 5 MG TABLET PO (10:44)
[2022-05-06] MEDS: Metoprolol Tartrate 50 MG TABLET PO ×2 (10:44→20:34)
[2022-05-06] MEDS: Acetaminophen 325 MG TABLET 650 MG PO ×2 (14:55→20:34)
--- NOTE | 2022-05-06 16:05 | PC.NURSE ---
Report to SOTO Nguyen. Care assumed by SOTO Nguyen.
--- NOTE | 2022-05-06 16:09 | P.PNPSI_ITS ---
Subjective Subjective Date of Service: 05/06/22 Reason For Visit: Sec 12, HI and SI per EMS Interim History: largely calm and cooperative but does become extremely angry very quickly when he believes MD is planning to stop his trilafon. the misunderstanding is explained. pt has no insight into his mood lability. feels his current regimen is adequate. per staff, wellbutrin DCed as provoking agitation. irritable yesterday. depressed. no SI/HI/AVH. yelling racial slurs at covering MD. Mental Status Exam Mental Status Exam Narrative: Pt is alert and oriented; behavior is largely cooperative and calm; patient is not in distress; dressed in hospital attire with unkempt hair and todd, marginal hygiene; edentulous; mood is described as pretty stable and affect ex tremely labile, downcast; eye contact appropriate; Speech is normal rate, volume and prosody; psychomotor retardation present; thought process is goal directed; circumstantial; Thought content is without any delusional content, paranoid ideations or grandiosity; denies any SI/HI. Denies AVH and There is no evidence of perceptual disturbance. Patients insight and judgment are impaired. Diagnostics Vital Signs (24Hr): Vital Signs - 24 hr 05/05/22 21:15 05/06/22 09:10 05/06/22 10:41 Temperature 97.8 F 97.2 F Pulse Rate 79 72 69 Respiratory Rate 18 18 18 Blood Pressure 116/62 102/62 118/59 L Pulse Oximetry 94 94 94 Oxygen Delivery Method Room Air Room Air Room Air BMI result Body Mass Index 31.7 Labs Labs: Laboratory Results - last 48 hr 05/04/22 05/05/22 05/05/22 16:58 08:24 12:00 POC Glucose 210 H 174 H 237 H 05/05/22 05/05/22 05/06/22 17:20 21:23 08:49 POC Glucose 217 H 291 H 193 H Medications Medications Current Medications Acetaminophen (Acetaminophen 325 Mg Tablet) 650 mg PO TID [facility] Last Admin: 05/06/22 14:55 Dose: 650 mg Aspirin (Aspirin 81 Mg Tab.Chew) 81 mg PO DAILY [facility] Last Admin: 05/06/22 09:18 Dose: 81 mg Atorvastatin Calcium (Atorvastatin Calcium 10 Mg Tablet) 10 mg PO BEDTIME [facility] Last Admin: 05/05/22 21:26 Dose: 10 mg Benzocaine (Throat Lozenge, Medicated Lozenge) 1 lozenge MUCOUS MEM Q2H PRN PRN Reason: Sore Throat Last Admin: 05/03/22 17:54 Dose: 1 lozenge Bismuth Subsalicylate (Bismuth Subsalicylate Liquid 524 Mg/30 Ml Oral.Susp) 525 mg PO DAILY PRN PRN Reason: INDEGESTION Clonazepam (Clonazepam 0.5 Mg Tablet) 0.5 mg PO BID [facility] Last Admin: 05/06/22 09:19 Dose: 0.5 mg Desmopressin Acetate (Desmopressin Acetate 0.2 Mg Tablet) 0.2 mg PO BEDTIME [facility] Last Admin: 05/05/22 21:27 Dose: 0.2 mg Dextrose (Dextrose 50 % 25 Gm/50 Ml Syringe) 25 gm IVPUSH Q15M PRN; Protocol PRN Reason: per Hypoglycemia Standing Ord. Famotidine (Famotidine 20 Mg Tablet) 40 mg PO BID [facility] Last Admin: 05/06/22 09:22 Dose: 40 mg Glucose (Glucose Gel 15 Gm Gel..Gram.) 15 gm PO Q15M PRN; Protocol PRN Reason: per Hypoglycemia Standing Ord. Hydroxyzine HCl (Hydroxyzine Hcl 25 Mg Tablet) 25 mg PO Q6H PRN PRN Reason: anxiety Last Admin: 05/05/22 21:27 Dose: 25 mg Ibuprofen (Ibuprofen 600 Mg Tablet) 600 mg PO TID PRN PRN Reason: for pain Last Admin: 05/05/22 08:38 Dose: 600 mg Insulin Glargine (Insulin Glargine,Hum.Rec.Anlog 100 Unit/Ml 10 Ml Vial) 48 unit SUBCUT BEDTIME [facility] Last Admin: 05/05/22 21:24 Dose: 48 unit Lactulose (Lactulose 20 Gm/30 Ml Solution) 10 gm PO BEDTIME PRN PRN Reason: constipation Levothyroxine Sodium (Levothyroxine Sodium 50 Mcg Tablet) 50 mcg PO DAILY@0600 [facility] Last Admin: 05/06/22 09:19 Dose: 50 mcg Lisinopril (Lisinopril 5 Mg Tablet) 5 mg PO DAILY [facility]; Protocol Last Admin: 05/06/22 10:44 Dose: 5 mg Magnesium Oxide (Magnesium Oxide 400 Mg Tablet) 400 mg PO DAILY [facility] Last Admin: 05/06/22 09:26 Dose: 400 mg Metoprolol Tartrate (Metoprolol Tartrate 50 Mg Tablet) 50 mg PO BID [facility]; Protocol Last Admin: 05/06/22 10:44 Dose: 50 mg Multivitamins/Vitamin C (Multivitamin Tablet) 1 tab PO DAILY [facility] Last Admin: 05/06/22 09:21 Dose: 1 tab Nicotine (Nicotine 21 Mg Patch.Td24) 21 mg TRANSDERMA DAILY [facility] Last Admin: 05/06/22 10:26 Dose: Not Given Nicotine Polacrilex (Nicotine Polacrilex 2 Mg Gum) 4 mg BUCCAL Q2H PRN PRN Reason: Nicotine Cravings Omeprazole (Omeprazole 20 Mg Capsule.Dr) 20 mg PO DAILY@0630 [facility] Last Admin: 05/06/22 09:21 Dose: 20 mg Perphenazine (Perphenazine 4 Mg Tablet) 4 mg PO BID [facility] Last Admin: 05/06/22 09:19 Dose: 4 mg Perphenazine (Perphenazine 8 Mg Tablet) 8 mg PO TID [facility] Last Admin: 05/06/22 14:55 Dose: 8 mg Senna (Sennosides 8.6 Mg Tablet) 17.2 mg PO DAILY [facility] Last Admin: 05/06/22 09:20 Dose: 17.2 mg Tizanidine HCl (Tizanidine Hcl 4 Mg Tablet) 4 mg PO BEDTIME [facility] Last Admin: 05/05/22 21:27 Dose: 4 mg Tizanidine HCl (Tizanidine Hcl 4 Mg Tablet) 4 mg PO DAILY PRN PRN Reason: back muscle pain Last Admin: 05/06/22 10:43 Dose: 4 mg Trazodone HCl (Trazodone Hcl 100 Mg Tablet) 100 mg PO BEDTIME PRN PRN Reason: Insomnia Last Admin: 05/05/22 21:27 Dose: 100 mg Vitamin D (Cholecalciferol (Vitamin D3) 25 Mcg Tablet) 25 mcg PO DAILY [facility] Last Admin: 05/06/22 09:19 Dose: 25 mcg Allergies Allergies Allergy/AdvReac Type Severity Reaction Status Date / Time clozapine [From Clozaril] Allergy Mild ringing in Verified 03/18/22 12:41 ears, pain, leukopenia trifluoperazine Allergy Tongue Verified 03/18/22 12:41 [From Stelazine] Swelling Assessment & Plan Assessment & Plan (1) Schizophrenia: Status: Acute Code(s): F20.9 - Schizophrenia, unspecified Plan Patient is a 56-year-old male on a [employer] [place] and with history of schizoaffective disorder, on a Section 12b, who presents for depression and suicidal threat in the face of missing some medication doses. -patient reports no longer suicidal. He knows his medications and wants to remain on them saying he knows he has a chemical imbalance -social work corroborates that patient did in fact have some missed doses due to staffing issues at [facility] apartment -patient complains of chronic lower back pain that his PCP said was arthritis; asks for increase in muscle relaxant 05/02 patient remains depressed but no SI. Agrees to trial of Wellbutrin for depression. Wants sliding scale insulin removed. Patient's elevated sugars have been mostly in the low 200s and he does not take sliding scale insulin at home. Will DC Plan: Section 12b Q 15 minute checks START Wellbutrin IR 100 mg daily for depression; if tolerated can be converted to long-acting XL Continue home medication regimen Continue POC DC sliding scale. Patient refuses Added extra dose of muscle relaxant p.r.n. 05/03: Signed CV accepted. Continue current plan. 05/04 Continue current plan. 05/05 DC Wellbutrin to see if his agitation and irritability improve. 05/06: labile, but improved from yesterday per staff. schedule tylenol for foot pain. Patient educated on: medication risk/benefits and medical condition Reason for contiued inpatient stay Substantial Risk for: harm to self, harm to others, inability to function and rapid decompensation Time Spent With Patient Time: Total time managing care of this patient today _25___ minutes.
[2022-05-06] MEDS: Atorvastatin Calcium 10 MG TABLET PO (20:34)
[2022-05-06] MEDS: traZODone HCL 100 MG TABLET PO (20:34)
[2022-05-06] MEDS: Desmopressin Acetate 0.2 MG TABLET PO (20:34)
[2022-05-06] MEDS: hydrOXYzine HCL 25 MG TABLET PO (20:35)
[2022-05-06] MEDS: Ibuprofen 600 MG TABLET PO (20:37)
[2022-05-06] MEDS: Insulin Glargine,Hum.rec.anlog 100 UNIT/ML 10 ML VIAL 48 UNIT SUBCUT (20:43)
[2022-05-06 20:46] LABS: Glucose, Whole Blood 325 mg/dL (60-115)
[2022-05-06 21:00] VITALS: BP 106/56; PULSE 81; RESP 18; TEMP 36.4; O2SAT 93
--- NOTE | 2022-05-07 06:57 | PC.NURSE ---
Pt declined 0630 levothyroxine. Willing to take later with other AM meds.
[2022-05-07 07:50] VITALS: BP 111/56; PULSE 71; RESP 20; TEMP 36.6; O2SAT 96
[2022-05-07 08:42] LABS: Glucose, Whole Blood 251 mg/dL (60-115)
[2022-05-07] MEDS: Acetaminophen 325 MG TABLET 650 MG PO (09:35)
[2022-05-07] MEDS: Aspirin 81 MG TAB.CHEW PO (09:36)
[2022-05-07] MEDS: Cholecalciferol (Vitamin D3) 25 MCG TABLET PO (09:36)
[2022-05-07] MEDS: lisinopriL 5 MG TABLET PO (09:37)
[2022-05-07] MEDS: Metoprolol Tartrate 50 MG TABLET PO ×2 (09:37→20:53)
[2022-05-07] MEDS: Omeprazole 20 MG CAPSULE.DR PO (09:37)
[2022-05-07] MEDS: Perphenazine 8 MG TABLET PO ×3 (09:38→20:55)
[2022-05-07] MEDS: Famotidine 20 MG TABLET 40 MG PO ×2 (09:38→20:55)
[2022-05-07] MEDS: clonazePAM 0.5 MG TABLET PO (09:38)
[2022-05-07] MEDS: Magnesium Oxide 400 MG TABLET PO (09:38)
[2022-05-07] MEDS: Sennosides 8.6 MG TABLET 17.2 MG PO (09:39)
[2022-05-07] MEDS: Perphenazine 4 MG TABLET PO ×2 (09:40→20:54)
[2022-05-07] MEDS: Levothyroxine Sodium 50 MCG TABLET PO (09:40)
--- NOTE | 2022-05-07 11:10 | PC.NURSE ---
Pt reports that hes ready for discharge, denies SI/HI/AV/AH . Reviewed discharge instructions to Pt. He verbalized understanding of instructions. Step father will be picking Pt up. He said he will be going back home to girlfriend.
[2022-05-07] MEDS: Lactulose 20 GM/30 ML SOLUTION 10 GM PO (12:30)
[2022-05-07] MEDS: Multivitamin TABLET 1 TAB PO (12:30)
[2022-05-07] MEDS: Acetaminophen 325 MG TABLET 975 MG PO ×2 (15:10→20:56)
[2022-05-07] MEDS: Bismuth Subsalicylate Liquid 524 MG/30 ML ORAL.SUSP 525 MG PO (15:45)
--- NOTE | 2022-05-07 16:27 | HO.PSYCHPN ---
Subjective Subjective Date of Service: 05/07/22 Reason For Visit: Sec 12, HI and SI per EMS Interim History: generally calm and cooperative, a brief moment of explosive anger shining through but pt was able to throttle it in its infancy. denies manic Hx. says his Dx is paranoid schizophrenia. states he is feeling close to ready to go home. discusses lack of food in the house and SW's efforts on his behalf here, pt willing to see what they might do for him. pt downplays his isolativeness, saying it has to do with physical pain, not mental illness. per staff, irritable at times. c/o lumbar pain. xray foot WNL. isolative, withdrawn. feeling lonely. Mental Status Exam Mental Status Exam Narrative: Pt is alert and oriented; behavior is largely cooperative and calm; patient is not in distress; dressed in hospital attire with unkempt hair and todd, marginal hygiene; edentulous; affect mod-labile, downcast; eye contact appropriate; Speech is normal rate, volume, flattened prosody; psychomotor retardation present; thought process is goal directed; linear; Thought content is without any delusional content, paranoid ideations or grandiosity; denies any SI/HI. Denies AVH and There is no evidence of perceptual disturbance. Patients insight and judgment are impaired. Diagnostics Vital Signs (24Hr): Vital Signs - 24 hr 05/06/22 21:00 05/07/22 07:50 Temperature 97.6 F 97.8 F Pulse Rate 81 71 Respiratory Rate 18 20 Blood Pressure 106/56 L 111/56 L Pulse Oximetry 93 96 Oxygen Delivery Method Room Air Room Air BMI result Body Mass Index 31.7 Labs Labs: Laboratory Results - last 48 hr 05/05/22 05/05/22 05/06/22 17:20 21: 08:49 POC Glucose 217 H 291 H 193 H 05/06/22 05/07/22 20:32 08:37 POC Glucose 325 H 251 H Imaging Radiology Impressions: ITS Impressions Foot X-Ray 05/06/22 14:45 IMPRESSION: Mild degenerative changes as described above. No acute finding. Medications Medications Current Medications Acetaminophen (Acetaminophen 325 Mg Tablet) 975 mg PO TID [facility] Last Admin: 05/07/22 15:10 Dose: 975 mg Aspirin (Aspirin 81 Mg Tab.Chew) 81 mg PO DAILY [facility] Last Admin: 05/07/22 09:36 Dose: 81 mg Atorvastatin Calcium (Atorvastatin Calcium 10 Mg Tablet) 10 mg PO BEDTIME [facility] Last Admin: 05/06/22 20:34 Dose: 10 mg Benzocaine (Throat Lozenge, Medicated Lozenge) 1 lozenge MUCOUS MEM Q2H PRN PRN Reason: Sore Throat Last Admin: 05/03/22 17:54 Dose: 1 lozenge Bismuth Subsalicylate (Bismuth Subsalicylate Liquid 524 Mg/30 Ml Oral.Susp) 525 mg PO DAILY PRN PRN Reason: INDEGESTION Last Admin: 05/07/22 15:45 Dose: 525 mg Desmopressin Acetate (Desmopressin Acetate 0.2 Mg Tablet) 0.2 mg PO BEDTIME [facility] Last Admin: 05/06/22 20:34 Dose: 0.2 mg Dextrose (Dextrose 50 % 25 Gm/50 Ml Syringe) 25 gm IVPUSH Q15M PRN; Protocol PRN Reason: per Hypoglycemia Standing Ord. Famotidine (Famotidine 20 Mg Tablet) 40 mg PO BID [facility] Last Admin: 05/07/22 09:38 Dose: 40 mg Glucose (Glucose Gel 15 Gm Gel..Gram.) 15 gm PO Q15M PRN; Protocol PRN Reason: per Hypoglycemia Standing Ord. Hydroxyzine HCl (Hydroxyzine Hcl 25 Mg Tablet) 25 mg PO Q6H PRN PRN Reason: anxiety Last Admin: 05/06/22 20:35 Dose: 25 mg Ibuprofen (Ibuprofen 600 Mg Tablet) 600 mg PO TID PRN PRN Reason: for pain Last Admin: 05/06/22 20:37 Dose: 600 mg Insulin Glargine (Insulin Glargine,Hum.Rec.Anlog 100 Unit/Ml 10 Ml Vial) 48 unit SUBCUT BEDTIME [facility] Last Admin: 05/06/22 20:43 Dose: 48 unit Lactulose (Lactulose 20 Gm/30 Ml Solution) 10 gm PO BEDTIME PRN PRN Reason: constipation Last Admin: 05/07/22 12:30 Dose: 10 gm Levothyroxine Sodium (Levothyroxine Sodium 50 Mcg Tablet) 50 mcg PO DAILY@0600 [facility] Last Admin: 05/07/22 09:40 Dose: 50 mcg Lisinopril (Lisinopril 5 Mg Tablet) 5 mg PO DAILY [facility]; Protocol Last Admin: 05/07/22 09:37 Dose: 5 mg Magnesium Oxide (Magnesium Oxide 400 Mg Tablet) 400 mg PO DAILY [facility] Last Admin: 05/07/22 09:38 Dose: 400 mg Metoprolol Tartrate (Metoprolol Tartrate 50 Mg Tablet) 50 mg PO BID [facility]; Protocol Last Admin: 05/07/22 09:37 Dose: 50 mg Multivitamins/Vitamin C (Multivitamin Tablet) 1 tab PO DAILY [facility] Last Admin: 05/07/22 12:30 Dose: 1 tab Nicotine (Nicotine 21 Mg Patch.Td24) 21 mg TRANSDERMA DAILY [facility] Last Admin: 05/07/22 09:43 Dose: Not Given Nicotine Polacrilex (Nicotine Polacrilex 2 Mg Gum) 4 mg BUCCAL Q2H PRN PRN Reason: Nicotine Cravings Omeprazole (Omeprazole 20 Mg Capsule.Dr) 20 mg PO DAILY@0630 [facility] Last Admin: 05/07/22 09:37 Dose: 20 mg Perphenazine (Perphenazine 4 Mg Tablet) 4 mg PO BID [facility] Last Admin: 05/07/22 09:40 Dose: 4 mg Perphenazine (Perphenazine 8 Mg Tablet) 8 mg PO TID [facility] Last Admin: 05/07/22 15:09 Dose: 8 mg Senna (Sennosides 8.6 Mg Tablet) 17.2 mg PO DAILY [facility] Last Admin: 05/07/22 09:39 Dose: 17.2 mg Tizanidine HCl (Tizanidine Hcl 4 Mg Tablet) 4 mg PO BEDTIME [facility] Last Admin: 05/05/22 21:27 Dose: 4 mg Tizanidine HCl (Tizanidine Hcl 4 Mg Tablet) 4 mg PO DAILY PRN PRN Reason: back muscle pain Last Admin: 05/06/22 10:43 Dose: 4 mg Trazodone HCl (Trazodone Hcl 100 Mg Tablet) 100 mg PO BEDTIME PRN PRN Reason: Insomnia Last Admin: 05/06/22 20:34 Dose: 100 mg Vitamin D (Cholecalciferol (Vitamin D3) 25 Mcg Tablet) 25 mcg PO DAILY [facility] Last Admin: 05/07/22 09:36 Dose: 25 mcg Allergies Allergies Allergy/AdvReac Type Severity Reaction Status Date / Time clozapine [From Clozaril] Allergy Mild ringing in Verified 11/15/22 12:41 ears, pain, leukopenia trifluoperazine Allergy Tongue Verified 03/18/22 12:41 [From Stelazine] Swelling Assessment & Plan Assessment & Plan (1) Schizophrenia: Status: Acute Code(s): F20.9 - Schizophrenia, unspecified Plan Patient is a 56-year-old male on a [employer] and with history of schizoaffective disorder, on a Section 12b, who presents for depression and suicidal threat in the face of missing some medication doses. -patient reports no longer suicidal. He knows his medications and wants to remain on them saying he knows he has a chemical imbalance -social work corroborates that patient did in fact have some missed doses due to staffing issues at [facility] housing apartment -patient complains of chronic lower back pain that his PCP said was arthritis; asks for increase in muscle relaxant 05/02 patient remains depressed but no SI. Agrees to trial of Wellbutrin for depression. Wants sliding scale insulin removed. Patient's elevated sugars have been mostly in the low 200s and he does not take sliding scale insulin at home. Will DC Plan: Section 12b Q 15 minute checks START Wellbutrin IR 100 mg daily for depression; if tolerated can be converted to long-acting XL Continue home medication regimen Continue POC DC sliding scale. Patient refuses Added extra dose of muscle relaxant p.r.n. 05/03: Signed CV accepted. Continue current plan. 05/04 Continue current plan. 05/05 DC Wellbutrin to see if his agitation and irritability improve. 05/06: labile, but improved from yesterday per staff. schedule tylenol for foot pain. 05/07: less labile, appears more depressed. remains isolative, which he attributes to physical pain rather than psychic. talking of feeling close to ready to go home. SW working on modifying outpt services. Reason for contiued inpatient stay Substantial Risk for: inability to function and rapid decompensation Time Spent With Patient Time: Total time managing care of this patient today _25___ minutes.
[2022-05-07 20:43] LABS: Glucose, Whole Blood 361 mg/dL (60-115)
[2022-05-07 20:45] VITALS: BP 110/62; PULSE 96; RESP 18; TEMP 36.6; O2SAT 98
[2022-05-07] MEDS: Desmopressin Acetate 0.2 MG TABLET PO (20:53)
[2022-05-07] MEDS: traZODone HCL 100 MG TABLET PO (20:53)
[2022-05-07] MEDS: Atorvastatin Calcium 10 MG TABLET PO (20:54)
[2022-05-07] MEDS: TiZANidine HCL 4 MG TABLET PO (20:55)
[2022-05-07] MEDS: Insulin Glargine,Hum.rec.anlog 100 UNIT/ML 10 ML VIAL 48 UNIT SUBCUT (20:57)
[2022-05-07] MEDS: Nicotine 21 MG PATCH.TD24 TRANSDERMA (23:25)
--- NOTE | 2022-05-07 23:26 | PC.NURSE ---
Williams requested the nicotine patch he refused in the am. He was given it at 2320.
[2022-05-08] MEDS: Ibuprofen 600 MG TABLET PO (01:39)
[2022-05-08] MEDS: TiZANidine HCL 4 MG TABLET PO ×4 (01:39→22:29)
[2022-05-08] MEDS: hydrOXYzine HCL 25 MG TABLET PO (01:39)
[2022-05-08 07:00] VITALS: BMI 32.0
[2022-05-08 08:30] VITALS: BP 97/61; PULSE 97; RESP 20; TEMP 36.4; O2SAT 99
[2022-05-08] MEDS: Aspirin 81 MG TAB.CHEW PO (08:35)
[2022-05-08] MEDS: Famotidine 20 MG TABLET 40 MG PO ×2 (08:37→21:49)
[2022-05-08] MEDS: Omeprazole 20 MG CAPSULE.DR PO (08:37)
[2022-05-08] MEDS: lisinopriL 5 MG TABLET PO (08:37)
[2022-05-08] MEDS: Perphenazine 4 MG TABLET PO ×2 (08:38→21:50)
[2022-05-08] MEDS: Acetaminophen 325 MG TABLET 975 MG PO ×3 (08:40→21:50)
[2022-05-08] MEDS: Multivitamin TABLET 1 TAB PO (08:42)
[2022-05-08] MEDS: Magnesium Oxide 400 MG TABLET PO (08:42)
[2022-05-08] MEDS: Metoprolol Tartrate 50 MG TABLET PO ×2 (08:43→21:49)
[2022-05-08] MEDS: Levothyroxine Sodium 50 MCG TABLET PO (08:43)
[2022-05-08] MEDS: Cholecalciferol (Vitamin D3) 25 MCG TABLET PO (08:43)
[2022-05-08] MEDS: Nicotine 21 MG PATCH.TD24 TRANSDERMA (08:44)
[2022-05-08] MEDS: Perphenazine 8 MG TABLET PO ×3 (08:44→21:49)
[2022-05-08 08:51] LABS: Glucose, Whole Blood 218 mg/dL (60-115)
[2022-05-08] MEDS: clonazePAM 0.5 MG TABLET PO ×2 (14:01→21:49)
[2022-05-08] MEDS: Docusate Sodium 100 MG CAPSULE PO ×2 (14:04→21:49)
--- NOTE | 2022-05-08 15:41 | P.PNPSI_ITS ---
Subjective Subjective Date of Service: 05/08/22 Reason For Visit: Sec 12, HI and SI per EMS Interim History: up and about the unit today, does not appear to be in any pain. does acknowledge his pain meds seem to be working today. states he slept only about 2 hours overnight, agrees to increase trazodone to 150 QHS with repeat of 50 available. planning to go to ENT appointment on thursday. per staff, spent most of day in bed. c/o back and foot pain. refused 1:1 contact. FSBS 361. denies SI/HI/AVH. Mental Status Exam Mental Status Exam Narrative: Pt is alert and oriented; behavior is largely cooperative and calm; patient is not in distress; dressed in hospital attire with unkempt hair and todd, fair hygiene; edentulous; affect non-labile, normo-intense; eye contact appropriate; Speech is normal rate, volume, flattened prosody; psychomotor retardation present; thought process is goal directed; linear; Thought content is without any delusional content, paranoid ideations or grandiosity; denies any SI/HI. Denies AVH and There is no evidence of perceptual disturbance. Patients insight and judgment are impaired. Diagnostics Vital Signs (24Hr): Vital Signs - 24 hr 05/07/22 20:45 05/08/22 08:30 Temperature 97.9 F 97.6 F Pulse Rate 96 97 Respiratory Rate 18 20 Blood Pressure 110/62 97/61 Pulse Oximetry 98 99 Oxygen Delivery Method Room Air Room Air BMI result Body Mass Index 32.0 Labs Labs: Laboratory Results - last 48 hr 05/06/22 05/07/22 05/07/22 20:32 08:37 20:39 POC Glucose 325 H 251 H 361 H* 05/08/22 08:33 POC Glucose 218 H Imaging Radiology Impressions: ITS Impressions Foot X-Ray 05/06/22 14:45 IMPRESSION: Mild degenerative changes as described above. No acute finding. Medications Medications Current Medications Acetaminophen (Acetaminophen 325 Mg Tablet) 975 mg PO TID [facility] Last Admin: 05/08/22 14:02 Dose: 975 mg Aspirin (Aspirin 81 Mg Tab.Chew) 81 mg PO DAILY [facility] Last Admin: 05/08/22 08:35 Dose: 81 mg Atorvastatin Calcium (Atorvastatin Calcium 10 Mg Tablet) 10 mg PO BEDTIME [facility] Last Admin: 05/07/22 20:54 Dose: 10 mg Benzocaine (Throat Lozenge, Medicated Lozenge) 1 lozenge MUCOUS MEM Q2H PRN PRN Reason: Sore Throat Last Admin: 05/03/22 17:54 Dose: 1 lozenge Bismuth Subsalicylate (Bismuth Subsalicylate Liquid 524 Mg/30 Ml Oral.Susp) 525 mg PO DAILY PRN PRN Reason: INDEGESTION Last Admin: 05/07/22 15:45 Dose: 525 mg Clonazepam (Clonazepam 0.5 Mg Tablet) 0.5 mg PO BID [facility] Last Admin: 05/08/22 14:01 Dose: 0.5 mg Desmopressin Acetate (Desmopressin Acetate 0.2 Mg Tablet) 0.2 mg PO BEDTIME [facility] Last Admin: 05/07/22 20:53 Dose: 0.2 mg Dextrose (Dextrose 50 % 25 Gm/50 Ml Syringe) 25 gm IVPUSH Q15M PRN; Protocol PRN Reason: per Hypoglycemia Standing Ord. Docusate Sodium (Docusate Sodium 100 Mg Capsule) 100 mg PO BID [facility] Last Admin: 05/08/22 14:04 Dose: 100 mg Famotidine (Famotidine 20 Mg Tablet) 40 mg PO BID [facility] Last Admin: 05/08/22 08:37 Dose: 40 mg Glucose (Glucose Gel 15 Gm Gel..Gram.) 15 gm PO Q15M PRN; Protocol PRN Reason: per Hypoglycemia Standing Ord. Hydroxyzine HCl (Hydroxyzine Hcl 25 Mg Tablet) 25 mg PO Q6H PRN PRN Reason: anxiety Last Admin: 05/08/22 01:39 Dose: 25 mg Ibuprofen (Ibuprofen 600 Mg Tablet) 600 mg PO TID PRN PRN Reason: for pain Last Admin: 05/08/22 01:39 Dose: 600 mg Insulin Glargine (Insulin Glargine,Hum.Rec.Anlog 100 Unit/Ml 10 Ml Vial) 48 unit SUBCUT BEDTIME [facility] Last Admin: 05/07/22 20:57 Dose: 48 unit Lactulose (Lactulose 20 Gm/30 Ml Solution) 10 gm PO BEDTIME PRN PRN Reason: constipation Last Admin: 05/07/22 12:30 Dose: 10 gm Levothyroxine Sodium (Levothyroxine Sodium 50 Mcg Tablet) 50 mcg PO DAILY [facility] Lisinopril (Lisinopril 5 Mg Tablet) 5 mg PO DAILY [facility]; Protocol Last Admin: 05/08/22 08:37 Dose: 5 mg Magnesium Oxide (Magnesium Oxide 400 Mg Tablet) 400 mg PO DAILY [facility] Last Admin: 05/08/22 08:42 Dose: 400 mg Metoprolol Tartrate (Metoprolol Tartrate 50 Mg Tablet) 50 mg PO BID [facility]; Protocol Last Admin: 05/08/22 08:43 Dose: 50 mg Multivitamins/Vitamin C (Multivitamin Tablet) 1 tab PO DAILY [facility] Last Admin: 05/08/22 08:42 Dose: 1 tab Nicotine (Nicotine 21 Mg Patch.Td24) 21 mg TRANSDERMA DAILY [facility] Last Admin: 05/08/22 08:44 Dose: 21 mg Nicotine Polacrilex (Nicotine Polacrilex 2 Mg Gum) 4 mg BUCCAL Q2H PRN PRN Reason: Nicotine Cravings Omeprazole (Omeprazole 20 Mg Capsule.Dr) 20 mg PO DAILY [facility] Perphenazine (Perphenazine 4 Mg Tablet) 4 mg PO BID [facility] Last Admin: 05/08/22 08:38 Dose: 4 mg Perphenazine (Perphenazine 8 Mg Tablet) 8 mg PO TID [facility] Last Admin: 05/08/22 14:02 Dose: 8 mg Tizanidine HCl (Tizanidine Hcl 4 Mg Tablet) 4 mg PO BEDTIME [facility] Last Admin: 05/07/22 20:55 Dose: 4 mg Tizanidine HCl (Tizanidine Hcl 4 Mg Tablet) 4 mg PO DAILY PRN PRN Reason: back muscle pain Last Admin: 05/08/22 14:47 Dose: 4 mg Trazodone HCl (Trazodone Hcl 50 Mg Tablet) 50 mg PO BEDTIME PRN PRN Reason: Insomnia Trazodone HCl (Trazodone Hcl 50 Mg Tablet) 150 mg PO BEDTIME [facility] Vitamin D (Cholecalciferol (Vitamin D3) 25 Mcg Tablet) 25 mcg PO DAILY [facility] Last Admin: 05/08/22 08:43 Dose: 25 mcg Allergies Allergies Allergy/AdvReac Type Severity Reaction Status Date / Time clozapine [From Clozaril] Allergy Mild ringing in Verified 03/18/22 12:41 ears, pain, leukopenia trifluoperazine Allergy Tongue Verified 03/18/22 12:41 [From Stelazine] Swelling Assessment & Plan Assessment & Plan (1) Schizophrenia: Status: Acute Code(s): F20.9 - Schizophrenia, unspecified Plan Patient is a 56-year-old male on a Community Leach and with history of schizoaffective disorder, on a Section 12b, who presents for depression and suicidal threat in the face of missing some medication doses. -patient reports no longer suicidal. He knows his medications and wants to remain on them saying he knows he has a chemical imbalance -social work corroborates that patient did in fact have some missed doses due to staffing issues at [facility] apartment -patient complains of chronic lower back pain that his PCP said was arthritis; asks for increase in muscle relaxant 05/02 patient remains depressed but no SI. Agrees to trial of Wellbutrin for depression. Wants sliding scale insulin removed. Patient's elevated sugars have been mostly in the low 200s and he does not take sliding scale insulin at home. Will DC Plan: Section 12b Q 15 minute checks START Wellbutrin IR 100 mg daily for depression; if tolerated can be converted to long-acting XL Continue home medication regimen Continue POC DC sliding scale. Patient refuses Added extra dose of muscle relaxant p.r.n. 05/03: Signed CV accepted. Continue current plan. 05/04 Continue current plan. 05/05 DC Wellbutrin to see if his agitation and irritability improve. 05/06: labile, but improved from yesterday per staff. schedule tylenol for foot pain. 05/07: less labile, appears more depressed. remains isolative, which he attributes to physical pain rather than psychic. talking of feeling close to ready to go home. SW working on modifying outpt services. 05/08: does not appear to be labile today. largely normal MSE. discuss discharge, now planned for thursday. increase trazodone to 150 mg QHS for insomnia. Patient educated on: medication risk/benefits Reason for contiued inpatient stay Substantial Risk for: harm to self, harm to others, inability to function and rapid decompensation Time Spent With Patient Time: Total time managing care of this patient today _25___ minutes.
[2022-05-08 21:41] LABS: Glucose, Whole Blood 404 mg/dL (60-115)
[2022-05-08 21:45] VITALS: BP 122/75; PULSE 80; RESP 16; TEMP 36.6; O2SAT 98
[2022-05-08] MEDS: Desmopressin Acetate 0.2 MG TABLET PO (21:48)
[2022-05-08] MEDS: Atorvastatin Calcium 10 MG TABLET PO (21:48)
[2022-05-08] MEDS: traZODone HCL 50 MG TABLET 150 MG PO (21:48)
[2022-05-08] MEDS: Insulin Glargine,Hum.rec.anlog 100 UNIT/ML 10 ML VIAL 48 UNIT SUBCUT (21:52)
[2022-05-09 08:10] VITALS: BP 100/68; PULSE 67; RESP 20; TEMP 36.4; O2SAT 98
[2022-05-09 08:32] LABS: Glucose, Whole Blood 303 mg/dL (60-115)
[2022-05-09] MEDS: Famotidine 20 MG TABLET 40 MG PO ×2 (08:42→21:42)
[2022-05-09] MEDS: Acetaminophen 325 MG TABLET 975 MG PO ×3 (08:43→21:43)
[2022-05-09] MEDS: Cholecalciferol (Vitamin D3) 25 MCG TABLET PO (08:43)
[2022-05-09] MEDS: Docusate Sodium 100 MG CAPSULE PO (08:44)
[2022-05-09] MEDS: Perphenazine 4 MG TABLET PO ×2 (08:44→21:41)
[2022-05-09] MEDS: Aspirin 81 MG TAB.CHEW PO (08:44)
[2022-05-09] MEDS: lisinopriL 5 MG TABLET PO (08:45)
[2022-05-09] MEDS: Magnesium Oxide 400 MG TABLET PO (08:45)
[2022-05-09] MEDS: Metoprolol Tartrate 50 MG TABLET PO ×2 (08:46→21:41)
[2022-05-09] MEDS: Multivitamin TABLET 1 TAB PO (08:47)
[2022-05-09] MEDS: Levothyroxine Sodium 50 MCG TABLET PO (08:47)
[2022-05-09] MEDS: Omeprazole 20 MG CAPSULE.DR PO (08:47)
[2022-05-09] MEDS: Perphenazine 8 MG TABLET PO ×3 (08:48→21:41)
[2022-05-09] MEDS: TiZANidine HCL 4 MG TABLET PO ×2 (08:54→21:43)
[2022-05-09] MEDS: clonazePAM 0.5 MG TABLET PO ×2 (09:10→21:42)
[2022-05-09] MEDS: Nicotine 21 MG PATCH.TD24 TRANSDERMA (10:03)
--- NOTE | 2022-05-09 11:00 | PM.PSYDC ---
DS: Providers Provider Date of admission: 04/30/22 13:16 Primary care physician: Mando Turpin MD DS: Diagnosis Discharge Diagnosis (1) Schizophrenia: Status: Acute DS: Medications Discharge Medications Home Medications: Home Medications Medication Instructions Recorded Confirmed blood sugar diagnostic #10 ea 03/15/20 03/18/22 lancets 28 gauge #100 ea 03/15/20 03/18/22 cholecalciferol (vitamin D3) 25 1 tab PO DAILY 02/26/22 04/29/22 mcg (1,000 unit) tablet (Vitamin D3) insulin glargine 100 unit/mL (3 48 unit subcut BEDTIME 02/26/22 04/29/22 mL) subcutaneous pen (Lantus Solostar U-100 Insulin) perphenazine 8 mg tablet 8 mg PO TID 02/26/22 04/29/22 atorvastatin 10 mg tablet 10 mg PO BEDTIME 04/29/22 04/29/22 bismuth subsalicylate 525 mg/15 mL 525 mg PO DAILY PRN INDEGESTION 04/29/22 04/29/22 oral suspension desmopressin 0.1 mg tablet 0.2 mg PO BEDTIME 04/29/22 04/29/22 metoprolol tartrate 50 mg tablet 1 tab PO BID 04/29/22 04/29/22 multivitamin 1 tab PO DAILY 04/29/22 04/29/22 perphenazine 4 mg tablet 1 tab PO BID 04/29/22 04/29/22 semaglutide 0.25 mg or 0.5 mg (2 0.5 mg subcut QWEEK 04/29/22 04/29/22 mg/1.5 mL) subcutaneous pen injector (Ozempic) Previous Rx's Medication Instructions Recorded pen needle, diabetic 31 gauge x #1,200 ea 03/12/2109/16 lactulose 10 gram/15 mL oral 15 ml PO BEDTIME PRN constipation 05/15/21 solution #237 mL acetaminophen 500 mg tablet 500 mg PO Q6H PRN fever or pain 30 07/15/21 (Tylenol Extra Strength) days #120 tabs QUAD CANE #1 ea 07/31/21 aspirin 81 mg chewable tablet 1 tab PO QAM 90 days #90 tabs 10/01/21 levothyroxine 50 mcg tablet 50 mcg PO QAM #30 tabs 12/30/21 omeprazole 20 mg capsule,delayed 20 mg PO DAILY #90 caps 12/31/21 release pen needle, diabetic 33 gauge x #100 ea 01/21/2205/07 (Comfort EZ Pen [place]) magnesium oxide 400 mg PO DAILY 30 days #30 tabs 03/18/22 famotidine 20 mg tablet 40 mg PO BID 30 days #120 tabs 03/24/22 lisinopril 5 mg tablet 5 mg PO DAILY #90 tabs 04/08/22 tizanidine 4 mg tablet 4 mg PO BEDTIME for low back pain 04/18/22 #30 tabs ibuprofen 600 mg tablet 600 mg PO TID PRN for pain #90 tabs 04/19/22 clonazepam 0.5 mg tablet 0.25 mg PO DAILY 30 days #15 tabs 05/09/22 clonazepam 0.5 mg tablet 0.5 mg PO BEDTIME 30 days #30 tabs 05/09/22 docusate sodium 100 mg capsule 200 mg PO BID 30 days #120 caps 05/09/22 nicotine 21 mg/24 hr daily 21 mg transdermal DAILY 28 days 05/09/22 transdermal patch #28 ea trazodone 50 mg tablet 150 mg PO BEDTIME 30 days #90 tabs 05/09/22 Data Data Completed and Pending Completed studies during hospitalization [Text1]: 05/02/22 05/02/22 05/03/22 16:44 20:42 08:26 POC Glucose 226 H 246 H 166 H 05/03/22 05/04/22 05/04/22 21:44 08:37 16:58 POC Glucose 251 H 140 H 210 H 05/05/22 05/05/22 05/05/22 08:24 12:00 17:20 POC Glucose 174 H 237 H 217 H 05/05/22 05/06/22 05/06/22 21:23 08:49 20:32 POC Glucose 291 H 193 H 325 H 05/07/22 05/07/22 05/08/22 08:37 20:39 08:33 POC Glucose 251 H 361 H* 218 H 05/08/22 05/09/22 21:35 08:24 POC Glucose 404 H* 303 H Imaging Diagnostic Imaging Impressions Foot X-Ray 05/06/22 14:45 IMPRESSION: Mild degenerative changes as described above. No acute finding. DS: Summary Time Spent with Patient Time attestation: Total time managing care of this patient today ____ minutes. Discharge Plan Discharge Anticipated Discharge Date/Time: 05/12/22 09:30 Patient Disposition: Home, Self-Care Discharge Diagnosis: Schizoaffective Disorder, Bipolar Type Referrals: Mando Turpin MD [Primary Care Provider] - 1 Week Discharge Medications: New nicotine 21 mg/24 hr Patch 24 Hour 21 mg transdermal DAILY 28 Days Qty: 28 0RF trazodone 50 mg Tablet 150 mg PO BEDTIME 30 Days Qty: 90 0RF clonazepam 0.5 mg Tablet 0.25 mg PO DAILY 30 Days Qty: 15 0RF clonazepam 0.5 mg Tablet 0.5 mg PO BEDTIME 30 Days Qty: 30 0RF docusate sodium 100 mg Capsule 200 mg PO BID 30 Days Qty: 120 0RF Continued (DME) pen needle, diabetic 31 gauge x 5/16 needle See Rx Instructions .ROUTE .MEDSUPPLY Qty: 1200 0RF Rx Instructions: Use 4 times daily lactulose 10 gram/15 mL solution 15 ml PO BEDTIME PRN (Reason: constipation) Qty: 237 2RF acetaminophen [Tylenol Extra Strength] 500 mg tablet 500 mg PO Q6H PRN (Reason: fever or pain) 30 Days Qty: 120 2RF Rx Instructions: TAKE 1 TABLET BY MOUTH EVERY 6 HOURS NEEDED. (NO MORE THAN 4 TABLETS A DAY) aspirin 81 mg tablet,chewable 1 tab PO QAM 90 Days Qty: 90 3RF levothyroxine 50 mcg tablet 50 mcg PO QAM Qty: 30 3RF omeprazole 20 mg capsule,delayed release(DR/EC) 20 mg PO DAILY Qty: 90 3RF (DME) Comfort EZ Pen [place] 33 gauge x 1/4 needle See Rx Instructions .ROUTE .MEDSUPPLY Qty: 100 12RF Rx Instructions: As directed famotidine 20 mg tablet 40 mg PO BID 30 Days Qty: 120 5RF lisinopril 5 mg tablet 5 mg PO DAILY Qty: 90 0RF tizanidine 4 mg tablet 4 mg PO BEDTIME Qty: 30 2RF ibuprofen 600 mg tablet 600 mg PO TID PRN (Reason: for pain) Qty: 90 0RF multivitamin Tablet 1 tab PO DAILY perphenazine 4 mg tablet 1 tab PO BID metoprolol tartrate 50 mg tablet 1 tab PO BID bismuth subsalicylate 525 mg/15 mL Suspension 525 mg PO DAILY PRN (Reason: INDEGESTION) Rx Instructions: do not exceed 8 doses in a 24 hour period desmopressin 0.1 mg tablet 0.2 mg PO BEDTIME atorvastatin 10 mg tablet 10 mg PO BEDTIME Ozempic 0.25 mg or 0.5 mg(2 mg/1.5 mL) pen injector 0.5 mg subcut QWEEK perphenazine 8 mg tablet 8 mg PO TID cholecalciferol (vitamin D3) [Vitamin D3] 25 mcg (1,000 unit) tablet 1 tab PO DAILY insulin glargine [Lantus Solostar U-100 Insulin] 100 unit/mL (3 mL) insulin pen 48 unit subcut BEDTIME (DME) QUAD CANE See Rx Instructions .Route .MEDSUPPLY Qty: 1 0RF Rx Instructions: As directed magnesium oxide 400 mg magnesium tablet 400 mg PO DAILY 30 Days Qty: 30 3RF (DME) blood sugar diagnostic Strip See Rx Instructions Not Applicable .MEDSUPPLY Qty: 10 Rx Instructions: As directed (DME) lancets 28 gauge misc See Rx Instructions topical .MEDSUPPLY Qty: 100 Rx Instructions: As directed Discontinued sennosides [senna] 8.6 mg tablet 17.2 mg PO DAILY Qty: 60 0RF clonazepam 0.5 mg tablet 1 tab PO BID trazodone 100 mg tablet 1 tab PO BEDTIME PRN (Reason: Insomnia) Discharge Orders: Discharge Order (Routine); Ordered 05/12/22 Ordered By: Joel Barrera Diet: Diabetic diet Activity on Discharge: As tolerated Stand Alone Forms: Patient Portal Discharge page Care Plan Goals: remain safe and stable in the outpatient treatment setting Health Concerns: diabetes mellitus Plan of Treatment: take medications as prescribed, attend appointments as scheduled Assessment: not at imminent risk of harm to self or others
--- NOTE | 2022-05-09 11:01 | HO.PSYCHPN ---
Subjective Subjective Date of Service: 05/09/22 Reason For Visit: Sec 12, HI and SI per EMS Interim History: appearing quite sleepy/sedated today, fell asleep in chair in milieu. aware he was taking klonopin prior to coming in the hospital, understands perhaps 0.5 mg was a bit too much for him this morning, agrees to cut back morning dose. c/o eye pain and needs glasses, referred to outpt F/U. c/o not sleeping much past couple of nights, maybe only 3 hours last night. will have klonopin 0.5 mg at HS. per staff, pleasant, sleeping. meds and meals. less depressed. feeling safe. Mental Status Exam Mental Status Exam Narrative: Pt is alert and oriented; behavior is largely cooperative and calm; patient is not in distress; dressed in hospital attire with unkempt hair and todd, fair hygiene; edentulous; affect non-labile, hypo-intense; eye contact appropriate; Speech is normal rate, volume, flattened prosody; psychomotor retardation present; thought process is goal directed; linear; Thought content is without any delusional content, paranoid ideations or grandiosity; denies any SI/HI. Denies AVH and There is no evidence of perceptual disturbance. Patients insight and judgment are impaired. Diagnostics Vital Signs (24Hr): Vital Signs - 24 hr 05/08/22 21:45 05/09/22 08:10 Temperature 97.8 F 97.6 F Pulse Rate 80 67 Respiratory Rate 16 20 Blood Pressure 122/75 100/68 Pulse Oximetry 98 98 Oxygen Delivery Method Room Air Room Air BMI result Body Mass Index 32.0 Labs Labs: Laboratory Results - last 48 hr 05/07/22 05/08/22 05/08/22 20:39 08:33 21:35 POC Glucose 361 H* 218 H 404 H* 05/09/22 08:24 POC Glucose 303 H Imaging Radiology Impressions: ITS Impressions Foot X-Ray 05/06/22 14:45 IMPRESSION: Mild degenerative changes as described above. No acute finding. Medications Medications Current Medications Acetaminophen (Acetaminophen 325 Mg Tablet) 975 mg PO TID [facility] Last Admin: 05/09/22 08:43 Dose: 975 mg Aspirin (Aspirin 81 Mg Tab.Chew) 81 mg PO DAILY [facility] Last Admin: 05/09/22 08:44 Dose: 81 mg Atorvastatin Calcium (Atorvastatin Calcium 10 Mg Tablet) 10 mg PO BEDTIME [facility] Last Admin: 05/08/22 21:48 Dose: 10 mg Benzocaine (Throat Lozenge, Medicated Lozenge) 1 lozenge MUCOUS MEM Q2H PRN PRN Reason: Sore Throat Last Admin: 05/03/22 17:54 Dose: 1 lozenge Bismuth Subsalicylate (Bismuth Subsalicylate Liquid 524 Mg/30 Ml Oral.Susp) 525 mg PO DAILY PRN PRN Reason: INDEGESTION Last Admin: 05/07/22 15:45 Dose: 525 mg Clonazepam (Clonazepam 0.5 Mg Tablet) 0.25 mg PO DAILY [facility] Clonazepam (Clonazepam 0.125 Mg Tab.Rapdis) 0.5 mg PO BEDTIME [facility] Desmopressin Acetate (Desmopressin Acetate 0.2 Mg Tablet) 0.2 mg PO BEDTIME [facility] Last Admin: 05/08/22 21:48 Dose: 0.2 mg Dextrose (Dextrose 50 % 25 Gm/50 Ml Syringe) 25 gm IVPUSH Q15M PRN; Protocol PRN Reason: per Hypoglycemia Standing Ord. Docusate Sodium (Docusate Sodium 100 Mg Capsule) 100 mg PO BID [facility] Last Admin: 05/09/22 08:44 Dose: 100 mg Famotidine (Famotidine 20 Mg Tablet) 40 mg PO BID [facility] Last Admin: 05/09/22 08:42 Dose: 40 mg Glucose (Glucose Gel 15 Gm Gel..Gram.) 15 gm PO Q15M PRN; Protocol PRN Reason: per Hypoglycemia Standing Ord. Hydroxyzine HCl (Hydroxyzine Hcl 25 Mg Tablet) 25 mg PO Q6H PRN PRN Reason: anxiety Last Admin: 05/08/22 01:39 Dose: 25 mg Ibuprofen (Ibuprofen 600 Mg Tablet) 600 mg PO TID PRN PRN Reason: for pain Last Admin: 05/08/22 01:39 Dose: 600 mg Insulin Glargine (Insulin Glargine,Hum.Rec.Anlog 100 Unit/Ml 10 Ml Vial) 48 unit SUBCUT BEDTIME [facility] Last Admin: 05/08/22 21:52 Dose: 48 unit Lactulose (Lactulose 20 Gm/30 Ml Solution) 10 gm PO BEDTIME PRN PRN Reason: constipation Last Admin: 05/07/22 12:30 Dose: 10 gm Levothyroxine Sodium (Levothyroxine Sodium 50 Mcg Tablet) 50 mcg PO DAILY [facility] Last Admin: 05/09/22 08:47 Dose: 50 mcg Lisinopril (Lisinopril 5 Mg Tablet) 5 mg PO DAILY [facility]; Protocol Last Admin: 05/09/22 08:45 Dose: 5 mg Magnesium Oxide (Magnesium Oxide 400 Mg Tablet) 400 mg PO DAILY [facility] Last Admin: 05/09/22 08:45 Dose: 400 mg Metoprolol Tartrate (Metoprolol Tartrate 50 Mg Tablet) 50 mg PO BID [facility]; Protocol Last Admin: 05/09/22 08:46 Dose: 50 mg Multivitamins/Vitamin C (Multivitamin Tablet) 1 tab PO DAILY [facility] Last Admin: 05/09/22 08:47 Dose: 1 tab Nicotine (Nicotine 21 Mg Patch.Td24) 21 mg TRANSDERMA DAILY [facility] Last Admin: 05/09/22 10:03 Dose: 21 mg Nicotine Polacrilex (Nicotine Polacrilex 2 Mg Gum) 4 mg BUCCAL Q2H PRN PRN Reason: Nicotine Cravings Omeprazole (Omeprazole 20 Mg Capsule.Dr) 20 mg PO DAILY [facility] Last Admin: 05/09/22 08:47 Dose: 20 mg Perphenazine (Perphenazine 4 Mg Tablet) 4 mg PO BID [facility] Last Admin: 05/09/22 08:44 Dose: 4 mg Perphenazine (Perphenazine 8 Mg Tablet) 8 mg PO TID [facility] Last Admin: 05/09/22 08:48 Dose: 8 mg Tizanidine HCl (Tizanidine Hcl 4 Mg Tablet) 4 mg PO BEDTIME [facility] Last Admin: 05/08/22 21:50 Dose: 4 mg Tizanidine HCl (Tizanidine Hcl 4 Mg Tablet) 4 mg PO DAILY PRN PRN Reason: back muscle pain Last Admin: 05/09/22 08:54 Dose: 4 mg Trazodone HCl (Trazodone Hcl 50 Mg Tablet) 50 mg PO BEDTIME PRN PRN Reason: Insomnia Trazodone HCl (Trazodone Hcl 50 Mg Tablet) 150 mg PO BEDTIME [facility] Last Admin: 05/08/22 21:48 Dose: 150 mg Vitamin D (Cholecalciferol (Vitamin D3) 25 Mcg Tablet) 25 mcg PO DAILY [facility] Last Admin: 05/09/22 08:43 Dose: 25 mcg Allergies Allergies Allergy/AdvReac Type Severity Reaction Status Date / Time clozapine [From Clozaril] Allergy Mild ringing in Verified 03/18/22 12:41 ears, pain, leukopenia trifluoperazine Allergy Tongue Verified 03/18/22 12:41 [From Stelazine] Swelling Assessment & Plan Assessment & Plan (1) Schizophrenia: Status: Acute Code(s): F20.9 - Schizophrenia, unspecified Plan Patient is a 56-year-old male on a Community [place] and with history of schizoaffective disorder, on a Section 12b, who presents for depression and suicidal threat in the face of missing some medication doses. -patient reports no longer suicidal. He knows his medications and wants to remain on them saying he knows he has a chemical imbalance -social work corroborates that patient did in fact have some missed doses due to staffing issues at [facility] housing apartment -patient complains of chronic lower back pain that his PCP said was arthritis; asks for increase in muscle relaxant 05/02 patient remains depressed but no SI. Agrees to trial of Wellbutrin for depression. Wants sliding scale insulin removed. Patient's elevated sugars have been mostly in the low 200s and he does not take sliding scale insulin at home. Will DC Plan: Section 12b Q 15 minute checks START Wellbutrin IR 100 mg daily for depression; if tolerated can be converted to long-acting XL Continue home medication regimen Continue POC DC sliding scale. Patient refuses Added extra dose of muscle relaxant p.r.n. 05/03: Signed CV accepted. Continue current plan. 05/04 Continue current plan. 2 DC Wellbutrin to see if his agitation and irritability improve. 05/06: labile, but improved from yesterday per staff. schedule tylenol for foot pain. 05/07: less labile, appears more depressed. remains isolative, which he attributes to physical pain rather than psychic. talking of feeling close to ready to go home. SW working on modifying outpt services. 05/08: does not appear to be labile today. largely normal MSE. discuss discharge, now planned for thursday. increase trazodone to 150 mg QHS for insomnia. 05/09: somewhat sedated from klonopin restart today (prescribed 0.5 mg BID outpt, it was DCed at/during admission). decrease morning dose to 0.25 mg moving forward. planning to DC thursday at [address] [facility] staff. medications prescribed. Patient educated on: medication risk/benefits Reason for contiued inpatient stay Substantial Risk for: inability to function and rapid decompensation Time Spent With Patient Time: Total time managing care of this patient today __35__ minutes.
[2022-05-09 21:20] VITALS: BP 110/75; PULSE 85; RESP 18; TEMP 36.6; O2SAT 99
[2022-05-09 21:32] LABS: Glucose, Whole Blood 382 mg/dL (60-115)
[2022-05-09] MEDS: Desmopressin Acetate 0.2 MG TABLET PO (21:41)
[2022-05-09] MEDS: traZODone HCL 50 MG TABLET 150 MG PO (21:42)
[2022-05-09] MEDS: Atorvastatin Calcium 10 MG TABLET PO (21:42)
[2022-05-09] MEDS: Docusate Sodium 100 MG CAPSULE 200 MG PO (21:43)
[2022-05-09] MEDS: hydrOXYzine HCL 25 MG TABLET PO (21:51)
[2022-05-09] MEDS: Insulin Glargine,Hum.rec.anlog 100 UNIT/ML 10 ML VIAL 48 UNIT SUBCUT (21:53)
--- NOTE | 2022-05-10 | ECG_ITS ---
Test Reason : cp Blood Pressure : / mmHG Vent. Rate : 071 BPM Atrial Rate : 071 BPM P-R Int : 288 ms QRS Dur : 088 ms QT Int : 396 ms P-R-T Axes : 067 059 066 degrees QTc Int : 430 ms Sinus rhythm with 1st degree A-V block Otherwise normal ECG When compared with ECG of 13-JAN-2022 22:03, No significant change was found Referred By: Ngozi Walker Electronically Signed By:Fredo Lares
--- NOTE | 2022-05-10 08:11 | HO.PSYCHPN ---
Subjective Subjective Date of Service: 05/10/22 Reason For Visit: Sec 12, HI and SI per EMS Subjective Notes: Conditional Voluntary Interim History: Pt reports epigastric pain. EKG completed, no s/s og schemia, but pt denied further labs. Pt given simethicone as he also reported bloating with good effect. He reported an hr after complete resolution of pain. He denies SI/HI. He denies VH/AH. He states he is looking forward to be discharged on Thursday. Review of Systems Review of Systems Pertinent positives and negatives as stated in HPI. Mental Status Exam Mental Status Exam Narrative: Pt is alert and oriented; behavior is largely cooperative and calm; patient is not in distress; dressed in hospital attire with unkempt hair and todd, fair hygiene; edentulous; affect non-labile, hypo-intense; eye contact appropriate; Speech is normal rate, volume, flattened prosody; psychomotor retardation present; thought process is goal directed; linear; Thought content is without any delusional content, paranoid ideations or grandiosity; denies any SI/HI. Denies AVH and There is no evidence of perceptual disturbance. Patients insight and judgment are impaired. Diagnostics Vital Signs (24Hr): Vital Signs - 24 hr 05/11/22 08:35 05/11/22 21:15 Temperature 97.8 F 97.4 F Pulse Rate 72 83 Respiratory Rate 18 16 Blood Pressure 95/59 L 133/59 L Pulse Oximetry 99 98 Oxygen Delivery Method Room Air Room Air BMI result Body Mass Index 32.0 Labs Labs: Laboratory Results - last 48 hr 05/10/22 05/10/22 05/11/22 08:28 21:12 08:01 POC Glucose 310 H 385 H* 288 H 05/11/22 20:23 POC Glucose 356 H* Imaging Radiology Impressions: ITS Impressions Foot X-Ray 05/06/22 14:45 IMPRESSION: Mild degenerative changes as described above. No acute finding. Medications Medications Current Medications Acetaminophen (Acetaminophen 325 Mg Tablet) 975 mg PO TID [facility] Last Admin: 05/11/22 21:19 Dose: 975 mg Aspirin (Aspirin 81 Mg Tab.Chew) 81 mg PO DAILY [facility] Last Admin: 05/11/22 08:40 Dose: 81 mg Atorvastatin Calcium (Atorvastatin Calcium 10 Mg Tablet) 10 mg PO BEDTIME [facility] Last Admin: 05/11/22 21:19 Dose: 10 mg Benzocaine (Throat Lozenge, Medicated Lozenge) 1 lozenge MUCOUS MEM Q2H PRN PRN Reason: Sore Throat Last Admin: 05/03/22 17:54 Dose: 1 lozenge Bismuth Subsalicylate (Bismuth Subsalicylate Liquid 524 Mg/30 Ml Oral.Susp) 525 mg PO DAILY PRN PRN Reason: INDEGESTION Last Admin: 05/11/22 09:14 Dose: 525 mg Clonazepam (Clonazepam 0.5 Mg Tablet) 0.25 mg PO DAILY [facility] Last Admin: 05/11/22 08:37 Dose: 0.25 mg Clonazepam (Clonazepam 0.5 Mg Tablet) 0.5 mg PO BEDTIME [facility] Last Admin: 05/11/22 21:19 Dose: 0.5 mg Desmopressin Acetate (Desmopressin Acetate 0.2 Mg Tablet) 0.2 mg PO BEDTIME [facility] Last Admin: 05/11/22 21:17 Dose: 0.2 mg Docusate Sodium (Docusate Sodium 100 Mg Capsule) 200 mg PO BID [facility] Last Admin: 05/11/22 21:18 Dose: 200 mg Famotidine (Famotidine 20 Mg Tablet) 40 mg PO BID [facility] Last Admin: 05/11/22 21:17 Dose: 40 mg Glucose (Glucose Gel 15 Gm Gel..Gram.) 15 gm PO Q15M PRN; Protocol PRN Reason: per Hypoglycemia Standing Ord. Hydroxyzine HCl (Hydroxyzine Hcl 25 Mg Tablet) 25 mg PO Q6H PRN PRN Reason: anxiety Last Admin: 05/11/22 03:31 Dose: 25 mg Insulin Glargine (Insulin Glargine,Hum.Rec.Anlog 100 Unit/Ml 10 Ml Vial) 48 unit SUBCUT BEDTIME [facility] Last Admin: 05/11/22 21:20 Dose: 48 unit Lactulose (Lactulose 20 Gm/30 Ml Solution) 10 gm PO BEDTIME PRN PRN Reason: constipation Last Admin: 05/07/22 12:30 Dose: 10 gm Levothyroxine Sodium (Levothyroxine Sodium 50 Mcg Tablet) 50 mcg PO DAILY [facility] Last Admin: 05/11/22 08:39 Dose: 50 mcg Lisinopril (Lisinopril 5 Mg Tablet) 5 mg PO DAILY [facility]; Protocol Last Admin: 05/11/22 08:41 Dose: Not Given Magnesium Oxide (Magnesium Oxide 400 Mg Tablet) 400 mg PO DAILY [facility] Last Admin: 05/11/22 08:41 Dose: 400 mg Metoprolol Tartrate (Metoprolol Tartrate 50 Mg Tablet) 50 mg PO BID [facility]; Protocol Last Admin: 05/11/22 21:17 Dose: 50 mg Multivitamins/Vitamin C (Multivitamin Tablet) 1 tab PO DAILY [facility] Last Admin: 05/11/22 08:42 Dose: 1 tab Nicotine (Nicotine 21 Mg Patch.Td24) 21 mg TRANSDERMA DAILY [facility] Last Admin: 05/11/22 08:44 Dose: 21 mg Nicotine Polacrilex (Nicotine Polacrilex 2 Mg Gum) 4 mg BUCCAL Q2H PRN PRN Reason: Nicotine Cravings Omeprazole (Omeprazole 20 Mg Capsule.Dr) 20 mg PO DAILY [facility] Last Admin: 05/11/22 08:39 Dose: 20 mg Perphenazine (Perphenazine 4 Mg Tablet) 4 mg PO BID [facility] Last Admin: 05/11/22 21:17 Dose: 4 mg Perphenazine (Perphenazine 8 Mg Tablet) 8 mg PO TID [facility] Last Admin: 05/11/22 21:29 Dose: 8 mg Tizanidine HCl (Tizanidine Hcl 4 Mg Tablet) 4 mg PO BEDTIME [facility] Last Admin: 05/11/22 21:18 Dose: 4 mg Tizanidine HCl (Tizanidine Hcl 4 Mg Tablet) 4 mg PO DAILY PRN PRN Reason: back muscle pain Last Admin: 05/10/22 14:19 Dose: 4 mg Trazodone HCl (Trazodone Hcl 50 Mg Tablet) 50 mg PO BEDTIME PRN PRN Reason: Insomnia Trazodone HCl (Trazodone Hcl 50 Mg Tablet) 150 mg PO BEDTIME [facility] Last Admin: 05/11/22 21:16 Dose: 150 mg Vitamin D (Cholecalciferol (Vitamin D3) 25 Mcg Tablet) 25 mcg PO DAILY [facility] Last Admin: 05/11/22 08:38 Dose: 25 mcg Allergies Allergies Allergy/AdvReac Type Severity Reaction Status Date / Time clozapine [From Clozaril] Allergy Mild ringing in Verified 03/18/22 12:41 ears, pain, leukopenia trifluoperazine Allergy Tongue Verified 03/18/22 12:41 [From Krys] Swelling Assessment & Plan Assessment & Plan (1) Schizophrenia: Status: Acute Code(s): F20.9 - Schizophrenia, unspecified Plan Patient is a 56-year-old male on a [employer] and with history of schizoaffective disorder, on a Section 12b, who presents for depression and suicidal threat in the face of missing some medication doses. -patient reports no longer suicidal. He knows his medications and wants to remain on them saying he knows he has a chemical imbalance -social work corroborates that patient did in fact have some missed doses due to staffing issues at [facility] housing apartment -patient complains of chronic lower back pain that his PCP said was arthritis; asks for increase in muscle relaxant 05/02 patient remains depressed but no SI. Agrees to trial of Wellbutrin for depression. Wants sliding scale insulin removed. Patient's elevated sugars have been mostly in the low 200s and he does not take sliding scale insulin at home. Will DC Plan: Section 12b Q 15 minute checks START Wellbutrin IR 100 mg daily for depression; if tolerated can be converted to long-acting XL Continue home medication regimen Continue POC DC sliding scale. Patient refuses Added extra dose of muscle relaxant p.r.n. 05/03: Signed CV accepted. Continue current plan. 05/04 Continue current plan. 05/05 DC Wellbutrin to see if his agitation and irritability improve. 05/06: labile, but improved from yesterday per staff. schedule tylenol for foot pain. 05/07: less labile, appears more depressed. remains isolative, which he attributes to physical pain rather than psychic. talking of feeling close to ready to go home. SW working on modifying outpt services. 05/08: does not appear to be labile today. largely normal MSE. discuss discharge, now planned for thursday. increase trazodone to 150 mg QHS for insomnia. 05/09: somewhat sedated from klonopin restart today (prescribed 0.5 mg BID outpt, it was DCed at/during admission). decrease morning dose to 0.25 mg moving forward. planning to DC thursday at 0930 to [facility] staff. medications prescribed. 05/10 continue tx. Reason for contiued inpatient stay Substantial Risk for: inability to function Time Spent With Patient Time: Total time managing care of this patient today ____ minutes.
[2022-05-10 08:33] LABS: Glucose, Whole Blood 310 mg/dL (60-115)
[2022-05-10 08:45] VITALS: BP 111/71; PULSE 77; RESP 18; TEMP 36.4; O2SAT 97
[2022-05-10] MEDS: Acetaminophen 325 MG TABLET 975 MG PO ×3 (08:59→21:31)
[2022-05-10] MEDS: clonazePAM 0.5 MG TABLET 0.25 MG PO (08:59)
[2022-05-10] MEDS: Docusate Sodium 100 MG CAPSULE 200 MG PO ×2 (09:00→21:30)
[2022-05-10] MEDS: Aspirin 81 MG TAB.CHEW PO (09:01)
[2022-05-10] MEDS: Famotidine 20 MG TABLET 40 MG PO ×2 (09:02→21:31)
[2022-05-10] MEDS: Perphenazine 4 MG TABLET PO ×2 (09:02→21:31)
[2022-05-10] MEDS: lisinopriL 5 MG TABLET PO (09:02)
[2022-05-10] MEDS: Cholecalciferol (Vitamin D3) 25 MCG TABLET PO (09:03)
[2022-05-10] MEDS: Levothyroxine Sodium 50 MCG TABLET PO (09:03)
[2022-05-10] MEDS: Omeprazole 20 MG CAPSULE.DR PO (09:04)
[2022-05-10] MEDS: Metoprolol Tartrate 50 MG TABLET PO ×2 (09:04→21:31)
[2022-05-10] MEDS: Perphenazine 8 MG TABLET PO ×3 (09:04→21:31)
[2022-05-10] MEDS: Magnesium Oxide 400 MG TABLET PO (09:09)
[2022-05-10] MEDS: Multivitamin TABLET 1 TAB PO (09:10)
[2022-05-10] MEDS: Nicotine 21 MG PATCH.TD24 TRANSDERMA (09:12)
--- NOTE | 2022-05-10 10:51 | PC.NURSE ---
Patient reporting sharp chest pain, states he has these at home occasionally, believes it may be 'gas,' VS obtained. Filiberto Walker aware, in to evaluate, pattern grader supervisor contacted for EKG. Patient reports pain is midsternal. radiating to left shoulder, worse when palpated.
[2022-05-10 10:54] VITALS: BP 102/56; PULSE 69; RESP 18; O2SAT 98
--- NOTE | 2022-05-10 10:58 | PC.NURSE ---
EKG in process
--- NOTE | 2022-05-10 10:59 | PC.NURSE ---
EKG in process
[2022-05-10] MEDS: Simethicone 80 MG TAB.CHEW 160 MG PO (11:12)
--- NOTE | 2022-05-10 11:17 | PC.NURSE ---
late entry: 1104: EKG sent to Filiberto Walker via [place] [employer]. Patient reports pain is resolved, no further pain.
[2022-05-10] MEDS: TiZANidine HCL 4 MG TABLET PO ×2 (14:19→21:30)
[2022-05-10 21:05] VITALS: BP 110/62; PULSE 79; RESP 18; O2SAT 99
[2022-05-10 21:19] LABS: Glucose, Whole Blood 385 mg/dL (60-115)
[2022-05-10] MEDS: Atorvastatin Calcium 10 MG TABLET PO (21:30)
[2022-05-10] MEDS: hydrOXYzine HCL 25 MG TABLET PO (21:30)
[2022-05-10] MEDS: Desmopressin Acetate 0.2 MG TABLET PO (21:30)
[2022-05-10] MEDS: traZODone HCL 50 MG TABLET 150 MG PO (21:30)
[2022-05-10] MEDS: clonazePAM 0.5 MG TABLET PO (21:30)
[2022-05-10] MEDS: Insulin Glargine,Hum.rec.anlog 100 UNIT/ML 10 ML VIAL 48 UNIT SUBCUT (21:40)
[2022-05-11] MEDS: hydrOXYzine HCL 25 MG TABLET PO (03:31)
[2022-05-11 08:05] LABS: Glucose, Whole Blood 288 mg/dL (60-115)
[2022-05-11 08:35] VITALS: BP 95/59; PULSE 72; RESP 18; TEMP 36.6; O2SAT 99
[2022-05-11] MEDS: clonazePAM 0.5 MG TABLET 0.25 MG PO (08:37)
[2022-05-11] MEDS: Cholecalciferol (Vitamin D3) 25 MCG TABLET PO (08:38)
[2022-05-11] MEDS: Famotidine 20 MG TABLET 40 MG PO ×2 (08:38→21:17)
[2022-05-11] MEDS: Omeprazole 20 MG CAPSULE.DR PO (08:39)
[2022-05-11] MEDS: Perphenazine 8 MG TABLET PO ×3 (08:39→21:29)
[2022-05-11] MEDS: Levothyroxine Sodium 50 MCG TABLET PO (08:39)
[2022-05-11] MEDS: Docusate Sodium 100 MG CAPSULE 200 MG PO ×2 (08:40→21:18)
[2022-05-11] MEDS: Aspirin 81 MG TAB.CHEW PO (08:40)
[2022-05-11] MEDS: Magnesium Oxide 400 MG TABLET PO (08:41)
[2022-05-11] MEDS: Acetaminophen 325 MG TABLET 975 MG PO ×3 (08:42→21:19)
[2022-05-11] MEDS: Multivitamin TABLET 1 TAB PO (08:42)
[2022-05-11] MEDS: Nicotine 21 MG PATCH.TD24 TRANSDERMA (08:44)
[2022-05-11] MEDS: Perphenazine 4 MG TABLET PO ×2 (08:44→21:17)
[2022-05-11] MEDS: Bismuth Subsalicylate Liquid 524 MG/30 ML ORAL.SUSP 525 MG PO (09:14)
--- NOTE | 2022-05-11 10:05 | PC.NURSE ---
Metoprolol, Lisinopril held due to lower BP- provider notified.
--- NOTE | 2022-05-11 11:12 | P.PNPSI_ITS ---
Subjective Subjective Date of Service: 05/11/22 Reason For Visit: Sec 12, HI and SI per EMS Subjective Notes: Conditional Voluntary Interim History: Pt reports sleeping and eating well. He denies physical concerns. No pain today. He asks about increasing clonazepam, explained he appeared sedated with higher doses. He later states he remembered conversation with MD last week about it. He denies SI/HI. He denies VH/AH. He states he is looking forward to be disc harged on Thursday. Review of Systems Review of Systems Pertinent positives and negatives as stated in HPI. Mental Status Exam Mental Status Exam Narrative: Pt is alert and oriented; behavior is largely cooperative and calm; patient is not in distress; dressed in hospital attire with unkempt hair and todd, fair hygiene; edentulous; affect non-labile, hypo-intense; eye contact appropriate; Speech is normal rate, volume, flattened prosody; psychomotor retardation present; thought process is goal directed; linear; Thought content is without any delusional content, paranoid ideations or grandiosity; denies any SI/HI. Denies AVH and There is no evidence of perceptual disturbance. Patients insight and judgment are impaired. Diagnostics Vital Signs (24Hr): Vital Signs - 24 hr 05/11/22 08:35 05/11/22 21:15 Temperature 97.8 F 97.4 F Pulse Rate 72 83 Respiratory Rate 18 16 Blood Pressure 95/59 L 133/59 L Pulse Oximetry 99 98 Oxygen Delivery Method Room Air Room Air BMI result Body Mass Index 32.0 Labs Labs: Laboratory Results - last 48 hr 05/10/22 05/10/22 05/11/22 08:28 21:12 08:01 POC Glucose 310 H 385 H* 288 H 05/11/22 20:23 POC Glucose 356 H* Imaging Radiology Impressions: ITS Impressions Foot X-Ray 05/06/22 14:45 IMPRESSION: Mild degenerative changes as described above. No acute finding. Medications Medications Current Medications Acetaminophen (Acetaminophen 325 Mg Tablet) 975 mg PO TID [facility] Last Admin: 05/11/22 21:19 Dose: 975 mg Aspirin (Aspirin 81 Mg Tab.Chew) 81 mg PO DAILY [facility] Last Admin: 05/11/22 08:40 Dose: 81 mg Atorvastatin Calcium (Atorvastatin Calcium 10 Mg Tablet) 10 mg PO BEDTIME [facility] Last Admin: 05/11/22 21:19 Dose: 10 mg Benzocaine (Throat Lozenge, Medicated Lozenge) 1 lozenge MUCOUS MEM Q2H PRN PRN Reason: Sore Throat Last Admin: 05/03/22 17:54 Dose: 1 lozenge Bismuth Subsalicylate (Bismuth Subsalicylate Liquid 524 Mg/30 Ml Oral.Susp) 525 mg PO DAILY PRN PRN Reason: INDEGESTION Last Admin: 05/11/22 09:14 Dose: 525 mg Clonazepam (Clonazepam 0.5 Mg Tablet) 0.25 mg PO DAILY [facility] Last Admin: 05/11/22 08:37 Dose: 0.25 mg Clonazepam (Clonazepam 0.5 Mg Tablet) 0.5 mg PO BEDTIME [facility] Last Admin: 05/11/22 21:19 Dose: 0.5 mg Desmopressin Acetate (Desmopressin Acetate 0.2 Mg Tablet) 0.2 mg PO BEDTIME [facility] Last Admin: 05/11/22 21:17 Dose: 0.2 mg Docusate Sodium (Docusate Sodium 100 Mg Capsule) 200 mg PO BID [facility] Last Admin: 05/11/22 21:18 Dose: 200 mg Famotidine (Famotidine 20 Mg Tablet) 40 mg PO BID [facility] Last Admin: 05/11/22 21:17 Dose: 40 mg Glucose (Glucose Gel 15 Gm Gel..Gram.) 15 gm PO Q15M PRN; Protocol PRN Reason: per Hypoglycemia Standing Ord. Hydroxyzine HCl (Hydroxyzine Hcl 25 Mg Tablet) 25 mg PO Q6H PRN PRN Reason: anxiety Last Admin: 05/11/22 03:31 Dose: 25 mg Insulin Glargine (Insulin Glargine,Hum.Rec.Anlog 100 Unit/Ml 10 Ml Vial) 48 unit SUBCUT BEDTIME [facility] Last Admin: 05/11/22 21:20 Dose: 48 unit Lactulose (Lactulose 20 Gm/30 Ml Solution) 10 gm PO BEDTIME PRN PRN Reason: constipation Last Admin: 05/07/22 12:30 Dose: 10 gm Levothyroxine Sodium (Levothyroxine Sodium 50 Mcg Tablet) 50 mcg PO DAILY [facility] Last Admin: 05/11/22 08:39 Dose: 50 mcg Lisinopril (Lisinopril 5 Mg Tablet) 5 mg PO DAILY [facility]; Protocol Last Admin: 05/11/22 08:41 Dose: Not Given Magnesium Oxide (Magnesium Oxide 400 Mg Tablet) 400 mg PO DAILY [facility] Last Admin: 05/11/22 08:41 Dose: 400 mg Metoprolol Tartrate (Metoprolol Tartrate 50 Mg Tablet) 50 mg PO BID [facility]; Protocol Last Admin: 05/11/22 21:17 Dose: 50 mg Multivitamins/Vitamin C (Multivitamin Tablet) 1 tab PO DAILY [facility] Last Admin: 05/11/22 08:42 Dose: 1 tab Nicotine (Nicotine 21 Mg Patch.Td24) 21 mg TRANSDERMA DAILY [facility] Last Admin: 05/11/22 08:44 Dose: 21 mg Nicotine Polacrilex (Nicotine Polacrilex 2 Mg Gum) 4 mg BUCCAL Q2H PRN PRN Reason: Nicotine Cravings Omeprazole (Omeprazole 20 Mg Capsule.Dr) 20 mg PO DAILY [facility] Last Admin: 05/11/22 08:39 Dose: 20 mg Perphenazine (Perphenazine 4 Mg Tablet) 4 mg PO BID [facility] Last Admin: 05/11/22 21:17 Dose: 4 mg Perphenazine (Perphenazine 8 Mg Tablet) 8 mg PO TID [facility] Last Admin: 05/11/22 21:29 Dose: 8 mg Tizanidine HCl (Tizanidine Hcl 4 Mg Tablet) 4 mg PO BEDTIME [facility] Last Admin: 05/11/22 21:18 Dose: 4 mg Tizanidine HCl (Tizanidine Hcl 4 Mg Tablet) 4 mg PO DAILY PRN PRN Reason: back muscle pain Last Admin: 05/10/22 14:19 Dose: 4 mg Trazodone HCl (Trazodone Hcl 50 Mg Tablet) 50 mg PO BEDTIME PRN PRN Reason: Insomnia Trazodone HCl (Trazodone Hcl 50 Mg Tablet) 150 mg PO BEDTIME [facility] Last Admin: 05/11/22 21:16 Dose: 150 mg Vitamin D (Cholecalciferol (Vitamin D3) 25 Mcg Tablet) 25 mcg PO DAILY [facility] Last Admin: 05/11/22 08:38 Dose: 25 mcg Allergies Allergies Allergy/AdvReac Type Severity Reaction Status Date / Time clozapine [From Clozaril] Allergy Mild ringing in Verified 03/18/22 12:41 ears, pain, leukopenia trifluoperazine Allergy Tongue Verified 03/18/22 12:41 [From Ivethkody] Swelling Assessment & Plan Assessment & Plan (1) Schizophrenia: Status: Acute Code(s): F20.9 - Schizophrenia, unspecified Plan Patient is a 56-year-old male on a [employer] and with history of schizoaffective disorder, on a Section 12b, who presents for depression and suicidal threat in the face of missing some medication doses. -patient reports no longer suicidal. He knows his medications and wants to remain on them saying he knows he has a chemical imbalance -social work corroborates that patient did in fact have some missed doses due to staffing issues at [facility] housing apartment -patient complains of chronic lower back pain that his PCP said was arthritis; asks for increase in muscle relaxant 05/02 patient remains depressed but no SI. Agrees to trial of Wellbutrin for depression. Wants sliding scale insulin removed. Patient's elevated sugars have been mostly in the low 200s and he does not take sliding scale insulin at home. Will DC Plan: Section 12b Q 15 minute checks START Wellbutrin IR 100 mg daily for depression; if tolerated can be converted to long-acting XL Continue home medication regimen Continue POC DC sliding scale. Patient refuses Added extra dose of muscle relaxant p.r.n. 05/03: Signed CV accepted. Continue current plan. 05/04 Continue current plan. 05/05 DC Wellbutrin to see if his agitation and irritability improve. 05/06: labile, but improved from yesterday per staff. schedule tylenol for foot pain. 05/07: less labile, appears more depressed. remains isolative, which he attributes to physical pain rather than psychic. talking of feeling close to ready to go home. SW working on modifying outpt services. 05/08: does not appear to be labile today. largely normal MSE. discuss discharge, now planned for thursday. increase trazodone to 150 mg QHS for insomnia. 05/09: somewhat sedated from klonopin restart today (prescribed 0.5 mg BID outpt, it was DCed at/during admission). decrease morning dose to 0.25 mg moving forward. planning to DC thursday at 0930 to [facility] staff. medications prescribed. 05/10 continue tx. 05/11 continue tx. Reason for contiued inpatient stay Substantial Risk for: inability to function Time Spent With Patient Time: Total time managing care of this patient today ____ minutes.
--- NOTE | 2022-05-11 16:53 | PC.NURSE ---
Late entry: SOTO Crawford assumed care, report given.
[2022-05-11 20:30] LABS: Glucose, Whole Blood 356 mg/dL (60-115)
[2022-05-11 21:15] VITALS: BP 133/59; PULSE 83; RESP 16; TEMP 36.3; O2SAT 98
[2022-05-11] MEDS: traZODone HCL 50 MG TABLET 150 MG PO (21:16)
[2022-05-11] MEDS: Desmopressin Acetate 0.2 MG TABLET PO (21:17)
[2022-05-11] MEDS: Metoprolol Tartrate 50 MG TABLET PO (21:17)
[2022-05-11] MEDS: TiZANidine HCL 4 MG TABLET PO (21:18)
[2022-05-11] MEDS: clonazePAM 0.5 MG TABLET PO (21:19)
[2022-05-11] MEDS: Atorvastatin Calcium 10 MG TABLET PO (21:19)
[2022-05-11] MEDS: Insulin Glargine,Hum.rec.anlog 100 UNIT/ML 10 ML VIAL 48 UNIT SUBCUT (21:20)
[2022-05-12 08:05] VITALS: BP 113/80; PULSE 72; RESP 20; TEMP 36.7; O2SAT 97
[2022-05-12 08:45] LABS: Glucose, Whole Blood 320 mg/dL (60-115)
[2022-05-12] MEDS: Famotidine 20 MG TABLET 40 MG PO (08:59)
[2022-05-12] MEDS: clonazePAM 0.5 MG TABLET 0.25 MG PO (09:00)
[2022-05-12] MEDS: Aspirin 81 MG TAB.CHEW PO (09:03)
[2022-05-12] MEDS: Metoprolol Tartrate 50 MG TABLET PO (09:03)
[2022-05-12] MEDS: Omeprazole 20 MG CAPSULE.DR PO (09:03)
[2022-05-12] MEDS: Magnesium Oxide 400 MG TABLET PO (09:03)
[2022-05-12] MEDS: Levothyroxine Sodium 50 MCG TABLET PO (09:04)
[2022-05-12] MEDS: Multivitamin TABLET 1 TAB PO (09:04)
[2022-05-12] MEDS: Perphenazine 4 MG TABLET PO (09:04)
[2022-05-12] MEDS: Perphenazine 8 MG TABLET PO (09:05)
[2022-05-12] MEDS: Acetaminophen 325 MG TABLET 975 MG PO (09:05)
[2022-05-12] MEDS: Docusate Sodium 100 MG CAPSULE 200 MG PO (09:06)
[2022-05-12] MEDS: lisinopriL 5 MG TABLET PO (09:06)
[2022-05-12] MEDS: Cholecalciferol (Vitamin D3) 25 MCG TABLET PO (09:06)
[2022-05-12] MEDS: Nicotine 21 MG PATCH.TD24 TRANSDERMA (09:07)
--- NOTE | 2022-05-12 09:11 | PM.PSYDC ---
DS: Providers Provider Date of Service: 05/12/22 Date of admission: 04/30/22 13:16 Primary care physician: Mando Turpin MD DS: Diagnosis Discharge Diagnosis (1) Schizophrenia: Status: Acute DS: Medications Discharge Medications Home Medications: Home Medications Medication Instructions Recorded Confirmed blood sugar diagnostic #10 ea 03/15/20 03/18/22 lancets 28 gauge #100 ea 03/15/20 03/18/22 cholecalciferol (vitamin D3) 25 1 tab PO DAILY 02/26/22 04/29/22 mcg (1,000 unit) tablet (Vitamin D3) insulin glargine 100 unit/mL (3 48 unit subcut BEDTIME 02/26/22 04/29/22 mL) subcutaneous pen (Lantus Solostar U-100 Insulin) perphenazine 8 mg tablet 8 mg PO TID 02/26/22 04/29/22 atorvastatin 10 mg tablet 10 mg PO BEDTIME 04/29/22 04/29/22 bismuth subsalicylate 525 mg/15 mL 525 mg PO DAILY PRN INDEGESTION 04/29/22 04/29/22 oral suspension desmopressin 0.1 mg tablet 0.2 mg PO BEDTIME 04/29/22 04/29/22 metoprolol tartrate 50 mg tablet 1 tab PO BID 04/29/22 04/29/22 multivitamin 1 tab PO DAILY 04/29/22 04/29/22 perphenazine 4 mg tablet 1 tab PO BID 04/29/22 04/29/22 semaglutide 0.25 mg or 0.5 mg (2 0.5 mg subcut QWEEK 04/29/22 04/29/22 mg/1.5 mL) subcutaneous pen injector (Ozempic) Previous Rx's Medication Instructions Recorded pen needle, diabetic 31 gauge x #1,200 ea 03/12/2109/16 lactulose 10 gram/15 mL oral 15 ml PO BEDTIME PRN constipation 05/15/21 solution #237 mL acetaminophen 500 mg tablet 500 mg PO Q6H PRN fever or pain 30 07/15/21 (Tylenol Extra Strength) days #120 tabs QUAD CANE #1 ea 07/31/21 aspirin 81 mg chewable tablet 1 tab PO QAM 90 days #90 tabs 05/31/22 levothyroxine 50 mcg tablet 50 mcg PO QAM #30 tabs 12/30/21 omeprazole 20 mg capsule,delayed 20 mg PO DAILY #90 caps 12/31/21 release pen needle, diabetic 33 gauge x #100 ea 01/21/2205/07 (Comfort EZ Pen [place]) magnesium oxide 400 mg PO DAILY 30 days #30 tabs 03/18/22 famotidine 20 mg tablet 40 mg PO BID 30 days #120 tabs 03/24/22 lisinopril 5 mg tablet 5 mg PO DAILY #90 tabs 04/08/22 tizanidine 4 mg tablet 4 mg PO BEDTIME for low back pain 04/18/22 #30 tabs ibuprofen 600 mg tablet 600 mg PO TID PRN for pain #90 tabs 04/19/22 docusate sodium 100 mg capsule 200 mg PO BID 30 days #120 caps 05/09/22 nicotine 21 mg/24 hr daily 21 mg transdermal DAILY 28 days 05/09/22 transdermal patch #28 ea trazodone 50 mg tablet 150 mg PO BEDTIME 30 days #90 tabs 05/09/22 clonazepam 0.5 mg tablet 0.5 mg PO BID 30 days #60 tabs 05/12/22 Data Data Completed and Pending Completed studies during hospitalization [Text1]: 05/05/22 05/05/22 05/05/22 12:00 17:20 21:23 POC Glucose 237 H 217 H 291 H 05/06/22 05/06/22 05/07/22 08:49 20:32 08:37 POC Glucose 193 H 325 H 251 H 05/07/22 05/08/22 05/08/22 20:39 08:33 21:35 POC Glucose 361 H* 218 H 404 H* 05/09/22 05/09/22 05/10/22 08:24 21:26 08:28 POC Glucose 303 H 382 H* 310 H 05/10/22 05/11/22 05/11/22 21:12 08:01 20:23 POC Glucose 385 H* 288 H 356 H* 05/12/22 08:36 POC Glucose 320 H Imaging Diagnostic Imaging Impressions Foot X-Ray 05/06/22 14:45 IMPRESSION: Mild degenerative changes as described above. No acute finding. DS: Summary Hospital Course Hospital Course: per 05/01 admission note: Patient is a 56-year-old male on a Community Leach and with history of schizophrenia, on a Section 12b, who presents for depression and suicidal threat in the face of missing some medication doses.? Patient initially irritable and bothered about being taken to the hospital, saying he is angry at the staff at this [facility] apartment complex where he lives, saying they don't always give him his medications and do not help him get food.? He acknowledged that he did say he was going to run into traffic and wanted to do so to kill himself because he was upset (It is not clear to procedure writer if he did actually run into traffic or not).? Patient later changed his tone and said that some staff is helpful,? particularly Bouchra for whom he's grateful.? He reports however that there has been timing issues with other staff giving out medications and even though he knows exactly what medications he takes and when he takes them, the person dispensing them is not always at the door when the medications are due, thus he has missed some amount of doses (this is confirmed true by SW).? Patient reports he has been feeling depressed because he has been lonely.? He says that other clients in the house are angry at him, saying that he talks to Bouchra too much and takes up her time.? Patient is also frustrated with his apartment saying the building is old and decrepit. Patient has a habit of smoking cigars outside but now that it is cold he wanted to smoke them in his apartment; however the windows were frozen shut; he also says the heat was off for about a week until they finally fixed it.? Patient says he is no longer suicidal; he denies any AVH.? He says he needs helps shopping and getting food for himself because he has no teeth and has only been eating pudding. Patient denies any drug or alcohol abuse. Past Psychiatric History: History of inpatient admissions though it has been awhile Medical Evaluation Reviewed: Yes FOR[facility]LY [facility], [facility] Medical History Acquired hypothyroidism Anxiety Benign essential hypertension Constipation Diabetes mellitus Dyspnea GERD without esophagitis Hyperlipidemia Hypertension, essential Hypomagnesemia Hypothyroidism Insulin dependent diabetes mellitus Lung nodule Midline low back pain Nicotine dependence, cigarettes, uncomplicated Nocturnal enuresis Obesity (BMI 30-39.9) Obesity (BMI 30-39.9) Obesity (BMI 35.0-39.9 without comorbidity) Obstructive sleep apnea On beta evaristo at home Pure hypercholesterolemia Schizoaffective disorder Schizophrenia Screening for STD (sexually transmitted disease) Smoker Surgical History? H/O colonoscopy (~10/12/20) History of left inguinal hernia repair Hx of facial fracture repair Family History: Deferred Social History: Patient has been from his for about 14 years Substance History: Denies Trauma History: Deferred Precis: Patient is a 56-year-old male on a Community Leach and with history of schizoaffective disorder, on a Section 12b, who presents for depression and suicidal threat in the face of missing some medication doses. 05/01: patient reports no longer suicidal.? He knows his medications and wants to remain on them saying he knows he has a chemical imbalance. social work corroborates that patient did in fact have some missed doses due to staffing issues at [facility] apartment. patient complains of chronic lower back pain that his PCP said was arthritis; asks for increase in muscle relaxant 05/02: patient remains depressed but no SI.? Agrees to trial of Wellbutrin for depression.? Wants sliding scale insulin removed.? Patient's elevated sugars have been mostly in the low 200s and he does not take sliding scale insulin at home.? Will DC. START Wellbutrin IR 100 mg daily for depression; if tolerated can be converted to long-acting XL. Added extra dose of muscle relaxant p.r.n. 05/03: Signed CV accepted. Continue current plan. 05/04:? Continue current plan. 2: DC Wellbutrin to see if his agitation and irritability improve. 05/06: labile, but improved from yesterday per staff.? schedule tylenol for foot pain. 05/07: less labile, appears more depressed.? remains isolative, which he attributes to physical pain rather than psychic.? talking of feeling close to ready to go home.? SW working on modifying outpt services. 05/08: does not appear to be labile today.? largely normal MSE.? discuss discharge, now planned for thursday.? increase trazodone to 150 mg QHS for insomnia. 05/09: somewhat sedated from klonopin restart today (prescribed 0.5 mg BID outpt, it was DCed at/during admission).? decrease morning dose to 0.25 mg moving forward.? planning to DC thursday at 0930 to [facility] staff.? medications prescribed. 05/10: continue tx. 05/11: continue tx. 05/12: return klonopin dosing to 0.5 BID per pt request. stable over weekend, somewhat irritable today. discharged to home. Time Spent with Patient Time attestation: Total time managing care of this patient today ____ minutes. Time spent: Greater than 30 minutes Discharge Plan Discharge Anticipated Discharge Date/Time: 05/12/22 09:30 Patient Disposition: Home, Self-Care Discharge Diagnosis: Schizoaffective Disorder, Bipolar Type Referrals: Mando Turpin MD [Primary Care Provider] - 05/23/22 12:30 pm Discharge Medications: New nicotine 21 mg/24 hr Patch 24 Hour 21 mg transdermal DAILY 28 Days Qty: 28 0RF trazodone 50 mg Tablet 150 mg PO BEDTIME 30 Days Qty: 90 0RF docusate sodium 100 mg Capsule 200 mg PO BID 30 Days Qty: 120 0RF clonazepam 0.5 mg Tablet 0.5 mg PO BID 30 Days Qty: 60 0RF Continued (DME) pen needle, diabetic 31 gauge x 5/16 needle See Rx Instructions .ROUTE .MEDSUPPLY Qty: 1200 0RF Rx Instructions: Use 4 times daily lactulose 10 gram/15 mL solution 15 ml PO BEDTIME PRN (Reason: constipation) Qty: 237 2RF acetaminophen [Tylenol Extra Strength] 500 mg tablet 500 mg PO Q6H PRN (Reason: fever or pain) 30 Days Qty: 120 2RF Rx Instructions: TAKE 1 TABLET BY MOUTH EVERY 6 HOURS NEEDED. (NO MORE THAN 4 TABLETS A DAY) aspirin 81 mg tablet,chewable 1 tab PO QAM 90 Days Qty: 90 3RF levothyroxine 50 mcg tablet 50 mcg PO QAM Qty: 30 3RF omeprazole 20 mg capsule,delayed release(DR/EC) 20 mg PO DAILY Qty: 90 3RF (DME) Comfort EZ Pen [place] 33 gauge x 1/4 needle See Rx Instructions .ROUTE .MEDSUPPLY Qty: 100 12RF Rx Instructions: As directed famotidine 20 mg tablet 40 mg PO BID 30 Days Qty: 120 5RF lisinopril 5 mg tablet 5 mg PO DAILY Qty: 90 0RF tizanidine 4 mg tablet 4 mg PO BEDTIME Qty: 30 2RF ibuprofen 600 mg tablet 600 mg PO TID PRN (Reason: for pain) Qty: 90 0RF multivitamin Tablet 1 tab PO DAILY perphenazine 4 mg tablet 1 tab PO BID metoprolol tartrate 50 mg tablet 1 tab PO BID bismuth subsalicylate 525 mg/15 mL Suspension 525 mg PO DAILY PRN (Reason: INDEGESTION) Rx Instructions: do not exceed 8 doses in a 24 hour period desmopressin 0.1 mg tablet 0.2 mg PO BEDTIME atorvastatin 10 mg tablet 10 mg PO BEDTIME Ozempic 0.25 mg or 0.5 mg(2 mg/1.5 mL) pen injector 0.5 mg subcut QWEEK perphenazine 8 mg tablet 8 mg PO TID cholecalciferol (vitamin D3) [Vitamin D3] 25 mcg (1,000 unit) tablet 1 tab PO DAILY insulin glargine [Lantus Solostar U-100 Insulin] 100 unit/mL (3 mL) insulin pen 48 unit subcut BEDTIME (DME) QUAD CANE See Rx Instructions .Route .MEDSUPPLY Qty: 1 0RF Rx Instructions: As directed magnesium oxide 400 mg magnesium tablet 400 mg PO DAILY 30 Days Qty: 30 3RF (DME) blood sugar diagnostic Strip See Rx Instructions Not Applicable .MEDSUPPLY Qty: 10 Rx Instructions: As directed (DME) lancets 28 gauge misc See Rx Instructions topical .MEDSUPPLY Qty: 100 Rx Instructions: As directed Discontinued sennosides [senna] 8.6 mg tablet 17.2 mg PO DAILY Qty: 60 0RF clonazepam 0.5 mg tablet 1 tab PO BID trazodone 100 mg tablet 1 tab PO BEDTIME PRN (Reason: Insomnia) Discharge Orders: Discharge Order (Routine); Ordered 05/12/22 Ordered By: Joel Barrera Diet: Diabetic diet Activity on Discharge: As tolerated Stand Alone Forms: Patient Portal Discharge page, Community Support Care Plan Goals: remain safe and stable in the outpatient treatment setting Health Concerns: diabetes mellitus Plan of Treatment: take medications as prescribed, attend appointments as scheduled Assessment: not at imminent risk of harm to self or others Discharge Date/Time: 05/12/22 10:00
--- NOTE | 2022-05-12 10:27 | PC.NURSE ---
Pt ready and aware for discharge home to his apartment with [facility] support. i reviewed instructions , medications and appointments. Pt verbalized understanding. Pt denies SI/HI/AH/VH. All belongings were given to patient and signed receipt for them.
== END 2022-05-12 10:00 | disposition home or self-care (01) | DRG 885 ==
LOC: HO.ED 21:05 → HO.PADLT16 04-30 13:27
PROVIDERS: Student in an Organized Health Care Education/Training Program; Admitting Provider Psychiatry & Neurology Psychiatry; Emergency Provider Internal Medicine; PCP Internal Medicine; Visit Provider Psychiatry & Neurology Psychiatry
DX: F20.9 Schizophrenia, unspecified (principal); R45.851 Suicidal ideations; F17.210 Nicotine dependence, cigarettes, uncomplicated; M19.90 Unspecified osteoarthritis, unspecified site; Z20.822 Contact with and (suspected) exposure to COVID-19; E03.9 Hypothyroidism, unspecified; G47.33 Obstructive sleep apnea (adult) (pediatric); E78.00 Pure hypercholesterolemia, unspecified; Z71.6 Tobacco abuse counseling; Z91.199 Patient's noncompliance with other medical treatment and regimen due to unspecified reason; Z88.8 Allergy status to other drugs, medicaments and biological substances; Z79.4 Long term (current) use of insulin; Z79.82 Long term (current) use of aspirin; Z79.890 Hormone replacement therapy; Z79.899 Other long term (current) drug therapy
CPT/HCPCS: 73630; 80307; 82947; 87502; 87635; 93005; 99285

== ENCOUNTER → 2022-06-24 13:57 | Outpatient (BNVA) | payer OTHER, SELFPAY | PROVIDERS: PCP Internal Medicine; Visit Provider Urology | DX: C64.1 Malignant neoplasm of right kidney, except renal pelvis (principal) | CPT/HCPCS: 99212 ==

== ENCOUNTER 2022-08-05 10:32 | Emergency (ER) | payer OTHER, SELFPAY ==
--- NOTE | ~2022-08-05 | CT_ITS ---
EXAMINATION: CT CERVICAL SPINE WITHOUT CONTRAST CLINICAL INFORMATION: Neck pain COMPARISON: None available. TECHNIQUE: Noncontrast multidetector CT imaging examination of the cervical spine is performed. Axial images and multiplanar reformatted images are reviewed. This CT examination was performed using dose optimization techniques as appropriate, variously including the following: *Automated exposure control *Adjustment of mA and/or kV according to patient size (this includes techniques or standardized protocols for targeted exams where dose is matched to indication/reason for exam; i.e. extremities or head) *Use of iterative reconstruction technique DLP: 696 mGy-cm FINDINGS: No acute CT imaging abnormalities. The visualized skull base is normal and mastoid air cells are well aerated. The craniocervical junction is normal. The dens and atlantodental articulation are intact. There is calcium deposition (likely calcium pyrophosphate dihydrate crystal deposition) around the dens. The cervical vertebra have normal height and alignment. No fractures in the anterior or posterior elements. No prevertebral edema or soft tissue hematoma. There is mild multilevel discovertebral degenerative change with osteophyte formation of the spine. There is posterior ligament ossification at C3, C4 and C5. At C3-C4, the posterior ligament ossification causes central canal stenosis (i.e., narrows the canal to 0.7 cm AP diameter). At C5, the posterior ligament ossification is more mild and does not significantly narrow the central canal. There is no significant stenosis of the neural foramina. The visualized lung apices are unremarkable. Thyroid gland is normal. CT/CT cervical spine wo IV con IMPRESSION: * No acute fracture or malalignment of the mildly degenerative cervical spine. * Cervical spinal canal stenosis is caused by the posterior longitudinal ligament ossification at C3-C4.
[2022-08-05 10:36] VITALS: BP 105/64; PULSE 82; RESP 18; TEMP 36.6; O2SAT 96; BMI 29.2
--- OUTSIDE RECORDS SUMMARY | 2022-08-05 12:21 | XMS_ITS | Continuity of Care Document ---
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 Medications Abilify 10 mg oral tablet 1 tablet = 10 mg, By Mouth, Daily, 0 Refills, Maintenance Start Date: 03/23/12 Status: Ordered Alcohol Pads See Instructions, # 150 each, Refills 11, Tot. Refills 11, Maintenance, use to clean finger tips for glucose monitoring 5x/day DxE11.9, 09/20/20 12:50:00 EDT, E11.65, Compound, 176, cm, 12/16/19 9:46:00 EDT, Height Start Date: 09/20/20 Status: Ordered Alcohol Wipes See Instructions, # 1 box, Refills 1, Tot. Refills 1, use 3x/day for skin prep, 07/23/12 11:22:03 Start Date: 07/23/12 Status: Ordered Alcohol Wipes See Instructions, # 100 application, Refills 11, Tot. Refills 11, Maintenance, use 3x/day for skin prep, 12/30/10 10:36:36 Start Date: 12/30/10 Status: Ordered aspirin 81 mg oral enteric coated tablet 1 tablet = 81 mg, By Mouth, Daily, # 100 tablet, 0 Refills, Maintenance, EC Tablet Start Date: 06/10/10 Status: Ordered Clozaril 100 mg oral tablet 1 tablet = 100 mg, By Mouth, 3 times a day, 0 Refills, Maintenance Start Date: 03/23/12 Status: Ordered COMFRT TOUCH PAD ALC PREP COMFRT TOUCH PAD ALC PREP, See Instructions, # 100 each, 8 Refills, Maintenance, USE DIRECTED [place] AREA 5 TIMES A DAY, 06/30/22 11:23:00 EST, 176, cm, 01/29/21 16:28:00 EDT, Height Start Date: 06/30/22 Status: Ordered Flonase 1 sprays, Daily, 0 Refills, Maintenance Start Date: 03/23/12 Status: Ordered Freestyle alo 2 14-day sensors Freestyle alo 2 14-day sensors, See Instructions, # 2 each, Refills 11, Tot. Refills 11, Maintenance, Use to check BG up to 5 times/day, change every 14 days, wear on the back of the upper arm, 11/09/20 12:31:00 EDT, dx10.65, Supply Start Date: 11/09/20 Status: Ordered Freestyle alo 2 reader Freestyle alo 2 reader, See Instructions, # 1 each, Refills 0, Tot. Refills 0, Maintenance, Use to check BG up to 5 times/day, 11/09/20 12:31:00 EDT, Supply Start Date: 11/09/20 Status: Ordered Freestyle Lite Lancets See Instructions, # 150 each, Refills 11, Tot. Refills 11, Maintenance, test blood sugar 5x day, DXE11.9,, 01/21/21 13:09:00 EDT, Compound, 176, cm, 10/18/20 9:49:00 EDT, Height Start Date: 01/21/21 Status: Ordered Freestyle Lite Monitor See Instructions, # 1 kit, Refills 0, Tot. Refills 0, Maintenance, DX E11.9, 07/04/20 13:50:00 EST,E11.9, Compound, 176, cm, 12/16/19 9:46:00 EDT, Height Start Date: 07/04/20 Status: Ordered Freestyle Lite Test Strips See Instructions, # 400 each, Refills 3, Tot. Refills 3, Maintenance, test blood sugar 4x day, DX E11.9, 12/03/21 17:56:00 EDT, E11.65, 90 day supply, Compound, 176, cm, 01/29/21 16:28:00 EDT, Height Start Date: 12/03/21 Status: Ordered Haldol Tablet Maintenance, 03/23/12 14:49:50 Start Date: 03/23/12 Status: Ordered Insulin Syringe, BD Ultra-Fine 1 cc 31 G x 8 mm (516in) See Instructions, # 400 each, Refills 5, Tot. Refills 5, Maintenance, 4 x a day injection, 90 day supply, 01/05/19 11:46:29 EDT, e11.65, Compound Start Date: 01/05/19 Status: Ordered Insulin Syringe, BD Ultra-Fine 1 cc 31 G x 8 mm (516in) See Instructions, # 360 each, Refills 3, Tot. Refills 3, Maintenance, USE 4 PER DAY, 12/31/11 15:02:38 Start Date: 12/31/11 Status: Ordered Klonopin 1 mg oral tablet 1 tablet = 1 mg, By Mouth, 3 times a day, 0 Refills, Maintenance Start Date: 03/23/12 Status: Ordered Lamictal 200 mg oral tablet 1 tablet = 200 mg, By Mouth, 2 times a day, 0 Refills, Maintenance Start Date: 03/23/12 Status: Ordered Lantus Solostar Pen 100 units/mL subcutaneous solution = 48 units, Subcutaneous Infusion, Daily, # 10 mL, 11 Refills, Maintenance, 10/21/20 6:23:00 EDT, [facility], E11.9, 176, cm, 10/18/20 9:49:00 EDT, Height Start Date: 10/21/20 Status: Ordered Levothyroxine Tablet 50, mcg, By Mouth, Daily, 0, 0, 12/02/07 16:54:52, Print NUHA Number, [id number], Constant Indicator Start Date: 12/02/07 Status: Ordered lithium 300 mg oral tablet 1 tablet = 300 mg, By Mouth, 2 times a day, # 60 tablet, 1 Refills, Maintenance, Tablet Start Date: 06/10/10 Status: Ordered MiraLax = 17 Gm, By Mouth, Daily, 0 Refills, Maintenance Start Date: 03/23/12 Status: Ordered Motrin IB 200 mg oral tablet 2 tablet = 400 mg, By Mouth, Every 4 hours, PRN for fever, # 120 tablet, 0 Refills, Maintenance, Tablet Start Date: 03/23/12 Status: Ordered Multi-Day Plus Minerals 1, tablet, By Mouth, Daily, 0, 0, 12/02/07 16:56:34, Print NUHA Number, [id number], Constant Indicator Start Date: 12/02/07 Status: Ordered One Touch UltraSoft Lancets See Instructions, # 300 each, Refills 0, Tot. Refills 0, Maintenance, TEST BS 2- 3 TIMES PER DAY, 05/11/12 9:49:52 Start Date: 05/11/12 Status: Ordered Ozempic (0.25 mg or 0.5 mg dose) 2 mg/1.5 mL subcutaneous solution = 0.5 mg, Subcutaneous Injection, Every week, # 1.5 mL, 0 Refills, Maintenance, 08/30/20 16:15:00 EDT, Solution, [facility], Partial fill upon patient request if the prescription is for a schedule II opioid drug., 176, cm, 12/16/19 9:46:00... Start Date: 08/30/20 Status: Ordered Ozempic 2 mg/1.5 mL (0.25 mg or 0.5 mg dose) subcutaneous solution = 0.5 mg, Subcutaneous Infusion, Every week, # 4 each, 11 Refills, Maintenance, 10/08/20 18:11:00 EDT, [facility], Partial fill upon patient request if the prescription is for a schedule II opioid drug., 0.5 mg Subcutaneous Infusion Every... Start Date: 10/08/20 Status: Ordered Pen [place], 31 G x 8 mm BD Ultra Fine III See Instructions, # 150 each, Refills 11, Tot. Refills 11, Maintenance, T2DM E11.9 for injecting insulin 4x daily, 12/17/19 4:07:00 EDT, Compound, 176, cm, 12/16/19 9:46:00 EDT, Height Start Date: 12/17/19 Status: Ordered Pepcid Tablet 40, mg, 2 times a day, 0, 0, 12/02/07 16:57:18, Print NU[facility] Number, [id number], Constant Indicator Start Date: 12/02/07 Status: Ordered PLASTIC URINAL PLASTIC URINAL, See Instructions, # 1 each, Refills 0, Tot. Refills 0, Maintenance, USE DIRECTEDAT HOME, 01/25/10 11:17:50 Start Date: 01/25/10 Status: Ordered simvastatin 20 mg oral tablet 1 tablet = 20 mg, By Mouth, Daily at bedtime, # 90 each, 3 Refills Start Date: 02/26/09 Stop Date: 03/27/09 Status: Ordered Tylenol Caplet = 650 mg, By Mouth, Every 4 hours, 0 Refills, Maintenance Start Date: 03/23/12 Status: Ordered Vistaril pamoate 25 mg oral capsule 1 capsule = 25 mg, By Mouth, 4 times a day, 0 Refills, Maintenance Start Date: 03/23/12 Status: Ordered Problem List Condition Confirmation Course Effective Dates Status H ealth Status Informant Bipolar Confirmed 07/13/08 Active Diabetes mellitus type 2 Confirmed 07/13/00 Active Hypertension Confirmed Active Hypothyroidism Confirmed Active Obesity Confirmed Active Schizophrenia Confirmed Active Patient Care team information Care Team Personnel Name: Papi GONSALVES, Mando Bearden Position: Reference Physician Member Role: PCP Address: Address: [address] [place] [address] Drive [address] [place] [address]- Name: Jeremiah Ocasio RN Position: S RN Member Role: Primary Care Nurse Care Team Related Persons Name: YOANDY HARRINGTON Address: home [address] [place] [address] Name: THANIA GARNER
[2022-08-05] MEDS: Lidocaine 4 % Patch ADH..PATCH 1 PATCH TRANSDERMA (12:50)
[2022-08-05] MEDS: diazePAM 2 MG TABLET 5 MG PO (12:50)
[2022-08-05] MEDS: Ketorolac Tromethamine 30 MG/ML VIAL IM (12:51)
[2022-08-05] MEDS: Lidocaine 4 % Patch ADH..PATCH 2 PATCH TRANSDERMA (13:13)
--- NOTE | 2022-08-05 14:22 | ED.NECK ---
HPI - Neck Pain/Injury General Chief Complaint: Neck Pain/Injury Stated Complaint: Neck pain Time Seen by Provider: 08/05/22 12:12 Source: patient Mode of arrival: ambulatory History of Present Illness HPI Narrative: 57-year-old male with a past medical history anxiety, hypertension, diabetes, GERD, HLD, obesity, JUANITA, schizoaffective, presenting to the ED complaining of bilateral neck pain x4 days radiating to head. Reports woke up with symptoms, denies head trauma, LOC, injury, or manipulation. Took ibuprofen without relief. Denies vision change/ loss, nausea/ vomiting, numbness, tingling, urinary/retention MD complaint: neck pain Onset (ago): day(s) Related Data Home Medications Medication Instructions Recorded Confirmed blood sugar diagnostic #10 ea 03/15/20 06/24/22 lancets 28 gauge #100 ea 03/15/20 06/24/22 cholecalciferol (vitamin D3) 25 1 tab PO DAILY 02/26/22 06/24/22 mcg (1,000 unit) tablet (Vitamin D3) insulin glargine 100 unit/mL (3 48 unit subcut BEDTIME 02/26/22 06/24/22 mL) subcutaneous pen (Lantus Solostar U-100 Insulin) perphenazine 8 mg tablet 8 mg PO TID 02/26/22 06/24/22 atorvastatin 10 mg tablet 10 mg PO BEDTIME 04/29/22 06/24/22 bismuth subsalicylate 525 mg/15 mL 525 mg PO DAILY PRN INDEGESTION 04/29/22 06/24/22 oral suspension perphenazine 4 mg tablet 1 tab PO BID 04/29/22 06/24/22 Previous Rx's Medication Instructions Recorded pen needle, diabetic 31 gauge x #1,200 ea 03/12/21 5/16 lactulose 10 gram/15 mL oral 15 ml PO BEDTIME PRN constipation 05/15/21 solution #237 mL acetaminophen 500 mg tablet 500 mg PO Q6H PRN fever or pain 30 07/15/21 (Tylenol Extra Strength) days #120 tabs QUAD CANE #1 ea 07/31/21 aspirin 81 mg chewable tablet 1 tab PO QAM 90 days #90 tabs 10/01/21 omeprazole 20 mg capsule,delayed 20 mg PO DAILY #90 caps 12/31/21 release pen needle, diabetic 33 gauge x #100 ea 01/21/22 1/ (Comfort EZ Pen Adams) magnesium oxide 400 mg PO DAILY 30 days #30 tabs 03/18/22 famotidine 20 mg tablet 40 mg PO BID 30 days #120 tabs 03/24/22 ibuprofen 600 mg tablet 600 mg PO TID PRN for pain #90 tabs 04/19/22 nicotine 21 mg/24 hr daily 21 mg transdermal DAILY 28 days 05/09/22 transdermal patch #28 ea trazodone 50 mg tablet 150 mg PO BEDTIME 30 days #90 tabs 05/09/22 desmopressin 0.1 mg tablet 0.2 mg PO BEDTIME #90 tabs 05/26/22 multivitamin 1 tab PO DAILY #90 tabs 05/26/22 semaglutide 0.25 mg or 0.5 mg (2 0.5 mg (0.4 mL) subcut QWEEK #1.5 06/03/22 mg/1.5 mL) subcutaneous pen mL injector (Ciespace) levothyroxine 50 mcg tablet 50 mcg PO QAM #90 tabs 06/25/22 atorvastatin 10 mg tablet 10 mg PO DAILY 90 days #90 tabs 06/26/22 docusate sodium 100 mg capsule 200 mg PO BID 30 days #120 caps 07/15/22 lisinopril 5 mg tablet 5 mg PO DAILY #90 tabs 07/18/22 tizanidine 4 mg tablet 4 mg PO BEDTIME for low back pain 07/28/22 #30 tabs metoprolol tartrate 50 mg tablet 50 mg PO BID #180 tabs 07/30/22 acetaminophen 500 mg tablet 500 mg PO Q6H PRN fever or pain 08/05/22 (Tylenol Extra Strength) #14 tabs lidocaine 5 % topical patch 1 patch topical DAILY PRN pain #30 08/05/22 (Lidoderm) ea naproxen 500 mg tablet 500 mg PO BID PRN pain 10 days #20 08/05/22 tabs tramadol 50 mg tablet 50 mg PO Q8H PRN pain, severe #9 08/05/22 tabs Allergies Allergy/AdvReac Type Severity Reaction Status Date / Time clozapine [From Clozaril] Allergy Mild ringing in Verified 08/05/22 10:36 ears, pain, leukopenia trifluoperazine Allergy Tongue Verified 08/05/22 10:36 [From Stelazine] Swelling Review of Systems Review of Systems: Constitutional: No Fever, No Chills ENT/Mouth: No Ear Pain, No Nasal Congestion, No sore throat, No Rhinorrhea, No Swallowing Difficulty Cardiovascular: No Chest Pain, No SOB Respiratory: No Cough, No Sputum, No Wheezing Gastrointestinal: No Nausea, No Vomiting, No Diarrhea, No Constipation, No Abdominal pain Genitourinary: No Dysuria, No Urinary Frequency, No Hematuria, No Urinary Incontinence/retention Musculoskeletal: +neck pain, No Myalgias, No Joint Swelling Skin: No Skin Lesions, No rash Neuro: No Weakness, No Numbness, No Paresthesias Yes all other systems are reviewed and are negative Constitutional: Constitutional: Reports as per HPI Neurologic: Denies Abnormal speech present [facility] Past Medical History Attestation statement: The following information was validated with the patient. Medical History Acquired hypothyroidism Anxiety Benign essential hypertension Constipation Diabetes mellitus Dyspnea GERD without esophagitis Hyperlipidemia Hypertension, essential Hypomagnesemia Hypothyroidism Insulin dependent diabetes mellitus Lung nodule Midline low back pain Nicotine dependence, cigarettes, uncomplicated Nocturnal enuresis Obesity (BMI 30-39.9) Obesity (BMI 30-39.9) Obesity (BMI 35.0-39.9 without comorbidity) Obstructive sleep apnea On beta evaristo at home Pure hypercholesterolemia Schizoaffective disorder Schizophrenia Screening for STD (sexually transmitted disease) Smoker Surgical History H/O colonoscopy (~10/12/20) History of left inguinal hernia repair Hx of facial fracture repair Family History Family History Father CVD (cardiovascular disease) Mother CVD (cardiovascular disease) Diabetes Sister Colon polyps Social History Social History Household Members: Other Household Members Other:: lives in a supported apartment problem Housing: Apartment Housing Other:: lives in a supported apartment problem Do you presently have visiting nurse or other home services: No Alcohol intake: unknown Patient Tobacco Use Status: Current someday Tobacco user Tobacco use type: Cigarette and Cigar Cigarette Packs Per Day: 0.75 Cigarettes Per Day: 40 Years Smoked: 30 e-Cigarette/Vaping Use: Never Used Second Hand Smoke Exposure: No Advance Directives: No Advance Directives Information Provided: No service: No Current occupational status: disabled Sexual orientation: Straight/Heterosexual Cognitive needs: No Hearing needs: No Vision needs: No Physical Exam Vital Signs: Vital Signs: Last Vital Signs Temp 98 F 08/05/22 10:36 Pulse 82 08/05/22 10:36 Resp 18 08/05/22 10:36 BP 105/64 08/05/22 10:36 Pulse Ox 96 08/05/22 10:36 O2 Del Method Room Air 08/05/22 10:36 BMI result Body Mass Index 29.2 Const: General: cooperative, healthy appearing and no acute distress Orientation/consciousness: patient oriented x3 Limitations: no limitations HEENT: Head: Yes normal to inspection and Yes atraumatic Ears: hearing grossly normal bilaterally, external ears normal, TM's normal bilaterally, mastoids normal and Abnormal EAC present General nose exam: Normal external nose present Face and sinus: Yes normal facial exam Mouth: Normal oral and palatal mucosa present Throat: Yes posterior oropharynx normal and Yes uvula midline Eyes: General: appearance normal, both eyes and all related structures Pupils: Equal, round and reactive pupils present EOM: EOMs intact bilaterally Neck: Other: + neck stiffness with midline tenderness and paraspinal tenderness bilaterally. No swelling / erythema. Neck: Yes normal visual inspection, Yes no meningeal signs and No anterior neck swelling Resp: Effort & Inspection: normal respiratory effort and no respiratory distress Cardio: Rate: regular rate Heart sounds: S1 normal heart sound present and S2 normal heart sound present Peripheral pulses: Peripheral pulses 2+ throughout Back/Spine/Pelvis: Other: No midline thoracic/lumbar spinous tenderness/step-off or deformity Skin: Rashes: no rashes Wounds: no wounds Neuro: General: patient oriented x3, gait normal, tone normal, moves all extremities, no meningeal signs, no focal motor deficits and CN's II-XI intact bilaterally Cranial nerves: Yes CN's II-XII intact bilaterally, Yes Equal, round and reactive pupils present and Yes Bilaterally intact EOM present Cognition (Neuro): normal cognition Speech: No Abnormal speech present Gait exam (Neuro): Normal gait present Motor exam (neuro): 5/5 motor strength present throughout Extrem: General: Yes normal to inspection Course Course Course Narrative: CT cervical spine wo IV con IMPRESSION: *? No acute fracture or malalignment of the mildly degenerative cervical spine. *? Cervical spinal canal stenosis is caused by the posterior longitudinal ligament ossification at C3-C4. >> patient reports mild symptomatic improvement after medications given in the ED. Results discussed with patient including worrisome signs and symptoms and strict return precautions, and when to return to the emergency department. They verbalized understanding and feel safe for discharge at this time. Medications Administered Discontinued Medications Generic Name Dose Route Start Last Admin Trade Name Freq PRN Reason Stop Dose Admin Diazepam 5 mg 08/05/22 12:35 08/05/22 12:50 Diazepam 2 Mg Tablet PO 08/05/22 12:36 5 mg ONCE ONE Administration Ketorolac Tromethamine 30 mg 08/05/22 12:35 08/05/22 12:51 Ketorolac Tromethamine 30 Mg/Ml Vial IM 08/05/22 12:36 30 mg ONCE ONE Administration Lidocaine 1 patch 08/05/22 12:35 08/05/22 12:50 Lidocaine 4 % Patch Adh..Patch TRANSDERMA 08/05/22 12:36 1 patch ONCE ONE Administration Protocol Lidocaine 2 patch 08/05/22 12:54 08/05/22 13:13 Lidocaine 4 % Patch Adh..Patch TRANSDERMA 08/05/22 12:55 2 patch ONCE ONE Administration Protocol Tramadol HCl 25 mg 08/05/22 14:53 08/05/22 15:00 Tramadol Hcl 50 Mg Tablet PO 08/05/22 14:54 25 mg ONCE ONE Administration Medical Decision Making Medical Decision Making MDM Narrative: 57-year-old male with a past medical history anxiety, hypertension, diabetes, GERD, HLD, obesity, JUANITA, schizoaffective, presenting to the ED complaining of bilateral neck pain x4 days radiating to head. On exam vital signs stable, NAD, appears in pain with mild neck stiffness, no meningeal signs. + Midline cervical and bilateral paraspinal tenderness. No focal deficits. Strength intact throughout, ambulating with steady gait. Concern for MSK pain/strain and spasming. Lower suspicion for fracture, cervical dissection, meningitis, encephalitis, mastoiditis or intraoral infection plan: Cervical spine CT, pain management, re-evaluate Please refer to course for remaining clinical decision making, interpretation of labs/imaging results, and discussions with consultants and/or family members. Differential Diagnosis Differential Diagnoses: The differential diagnosis associated with the presentation includes As above Admission/Observation Consideration of admission/observation: Escalation of care including admission/observation considered Lab Data MDM Lab Attestation statement: I reviewed the patient's lab results. Radiology Impression Discussion of test interpretation with radiology: I have reviewed the radiologist's reading. External Record Review External record reviewed: Inpatient record, Office record, Outpatient record, Prior outpatient labs, Prior outpatient radiology, Primary care record and Outside ED record Discharge Plan Discharge Clinical Impression: Muscle spasms of neck Patient Disposition: Home, Self-Care Instructions: Muscle Spasm (ED) Additional Instructions: your CT scan does not show any fractures, you do have arthritic changes as well some canal stenosis. Lidoderm patches or numbing patches, apply to painful area. Naproxen as anti-inflammatory/pain medication, take with food Tramadol opiate pain medication to, take only when pain is severe for the next 3 days. In addition take Tylenol Follow-up with your doctor If symptoms persist or worsen you weakness, vision changes or headache return to the ED Prescriptions: New acetaminophen [Tylenol Extra Strength] 500 mg tablet 500 mg PO Q6H PRN (Reason: fever or pain) Qty: 14 0RF lidocaine [Lidoderm] 5 % adhesive patch,medicated 1 patch topical DAILY MDD remove after 12 hours PRN (Reason: pain) Qty: 30 0RF Rx Instructions: leave on most painful area for up to 12 hrs naproxen 500 mg tablet 500 mg PO BID PRN (Reason: pain) 10 Days Qty: 20 0RF tramadol 50 mg tablet 50 mg PO Q8H PRN (Reason: pain, severe) Qty: 9 0RF No Action (DME) pen needle, diabetic 31 gauge x 5/16 needle See Rx Instructions .ROUTE .MEDSUPPLY Qty: 1200 0RF Rx Instructions: Use 4 times daily lactulose 10 gram/15 mL solution 15 ml PO BEDTIME PRN (Reason: constipation) Qty: 237 2RF acetaminophen [Tylenol Extra Strength] 500 mg tablet 500 mg PO Q6H PRN (Reason: fever or pain) 30 Days Qty: 120 2RF Rx Instructions: TAKE 1 TABLET BY MOUTH EVERY 6 HOURS NEEDED. (NO MORE THAN 4 TABLETS A DAY) aspirin 81 mg tablet,chewable 1 tab PO QAM 90 Days Qty: 90 3RF omeprazole 20 mg capsule,delayed release(DR/EC) 20 mg PO DAILY Qty: 90 3RF (DME) Comfort EZ Pen Adams 33 gauge x 1/4 needle See Rx Instructions .ROUTE .MEDSUPPLY Qty: 100 12RF Rx Instructions: As directed famotidine 20 mg tablet 40 mg PO BID 30 Days Qty: 120 5RF ibuprofen 600 mg tablet 600 mg PO TID PRN (Reason: for pain) Qty: 90 0RF desmopressin 0.1 mg tablet 0.2 mg PO BEDTIME Qty: 90 2RF multivitamin Tablet 1 tab PO DAILY Qty: 90 2RF Ozempic 0.25 mg or 0.5 mg(2 mg/1.5 mL) pen injector 0.5 mg subcut QWEEK Qty: 1.5 2RF levothyroxine 50 mcg tablet 50 mcg PO QAM Qty: 90 3RF atorvastatin 10 mg tablet 10 mg PO DAILY 90 Days Qty: 90 1RF docusate sodium 100 mg capsule 200 mg PO BID 30 Days Qty: 120 0RF lisinopril 5 mg tablet 5 mg PO DAILY Qty: 90 0RF tizanidine 4 mg tablet 4 mg PO BEDTIME Qty: 30 2RF metoprolol tartrate 50 mg tablet 50 mg PO BID Qty: 180 0RF perphenazine 4 mg tablet 1 tab PO BID bismuth subsalicylate 525 mg/15 mL Suspension 525 mg PO DAILY PRN (Reason: INDEGESTION) Rx Instructions: do not exceed 8 doses in a 24 hour period atorvastatin 10 mg tablet 10 mg PO BEDTIME nicotine 21 mg/24 hr Patch 24 Hour 21 mg transdermal DAILY 28 Days Qty: 28 0RF trazodone 50 mg Tablet 150 mg PO BEDTIME 30 Days Qty: 90 0RF perphenazine 8 mg tablet 8 mg PO TID cholecalciferol (vitamin D3) [Vitamin D3] 25 mcg (1,000 unit) tablet 1 tab PO DAILY insulin glargine [Lantus Solostar U-100 Insulin] 100 unit/mL (3 mL) insulin pen 48 unit subcut BEDTIME (DME) QUAD CANE See Rx Instructions .Route .MEDSUPPLY Qty: 1 0RF Rx Instructions: As directed magnesium oxide 400 mg magnesium tablet 400 mg PO DAILY 30 Days Qty: 30 3RF (DME) blood sugar diagnostic Strip See Rx Instructions Not Applicable .MEDSUPPLY Qty: 10 Rx Instructions: As directed (DME) lancets 28 gauge misc See Rx Instructions topical .MEDSUPPLY Qty: 100 Rx Instructions: As directed Referrals: Mando Turpin MD [Primary Care Provider] - 3 days Interventions: ED Discharge Assessment Last Done: 08/05/22 15:06 Discharge Date/Time: 08/05/22 15:07
[2022-08-05] MEDS: traMADoL HCL 50 MG TABLET 25 MG PO (15:00)
--- NOTE | 2022-08-05 22:47 | PC.NURSE ---
tramadol 25mg wasted with T.Rice RN
== END 2022-08-05 15:07 | disposition home or self-care (01) ==
PROVIDERS: Emergency Provider Emergency Medicine Emergency Medical Services; PCP Internal Medicine
DX: M62.838 Other muscle spasm (principal); M54.2 Cervicalgia; E11.9 Type 2 diabetes mellitus without complications; I10 Essential (primary) hypertension; E78.5 Hyperlipidemia, unspecified; F17.200 Nicotine dependence, unspecified, uncomplicated; Z79.4 Long term (current) use of insulin; Z79.02 Long term (current) use of antithrombotics/antiplatelets; Z79.899 Other long term (current) drug therapy
CPT/HCPCS: 72125; 96372; 99283; 99284; J1885

== ENCOUNTER 2022-09-18 09:34 | Outpatient (REF) | payer OTHER, SELFPAY ==
--- NOTE | ~2022-09-18 | XR_ITS ---
EXAMINATION: XR BILATERAL HIPS WITH AP PELVIS CLINICAL INFORMATION: Bilateral hip pain COMPARISON: None available. TECHNIQUE: AP view of the pelvis and 2 views of each hip were obtained. FINDINGS: There is moderate to severe bilateral hip arthritis with joint space narrowing and osteophyte formation. No fracture or dislocation. Bones of the pelvis are normal. The sacroiliac joints are normal. Soft tissues are normal. XR/XR hips MADAN min 3V IMPRESSION: Moderate to severe bilateral hip osteoarthritis.
--- NOTE | ~2022-09-18 | XR_ITS ---
EXAMINATION: XR LUMBOSACRAL SPINE CLINICAL INFORMATION: Low back pain COMPARISON: Previous x-ray October 2016 TECHNIQUE: Three views of the lumbosacral spine. FINDINGS: Bone alignment is normal. No fracture or dislocation. Degenerative spondylosis the lower thoracic spine, T12-L1 and L1-L2. Normal disc spaces. Lower lumbar spine facet arthritis. XR/XR lumbar spine 2-3V IMPRESSION: Atherosclerotic disease.
[2022-09-18 10:34] LABS: MANUAL DIFF FLAG NO
[2022-09-18 10:51] LABS: Basophils Absolute Auto 0.1 X10*3/uL (0.0-0.2); Basophils Percent Auto 1.4 % (0-2); Eosinophils Absolute Auto 0.1 X10*3/uL (0.0-0.4); Eosinophils Percent Auto 1.6 % (0-4); Hematocrit 37.7 % (42.0-52.0); Hemoglobin 13.4 g/dl (14.0-18.0); Imm Gran Abs Auto 0.01 X10*3/uL (0.00-0.03); Imm Gran Pct Auto 0.2 % (0.0-0.4); Lymphocytes Absolute Auto 1.6 X10*3/uL (1.2-4.9); Lymphocytes Percent Auto 32.5 % (20-40); Mean Corpuscular HGB Conc 35.5 g/dl (31.0-36.0); Mean Corpuscular Hemoglobin 32.6 pg (27.0-33.0); Mean Corpuscular Volume 91.7 fL (80.0-98.0); Mean Platelet Volume 10.5 fL (9.4-12.4); Monocytes Absolute Auto 0.5 X10*3/uL (0.1-1.2); Monocytes Percent Auto 10.3 % (2-11); Neutrophils Absolute Auto 2.7 x10*3/uL (2.0-8.3); Red Blood Count 4.11 X10*6/uL (4.60-5.80); Red Cell Distribution Width 14.3 % (11.0-16.0); White Blood Count 4.9 X10*3/uL (4.8-10.8)
[2022-09-18 10:52] LABS: Platelet Count 84 X10*3/uL (160-400)
[2022-09-18 10:59] LABS: Estimated Average Glucose 117 mg/dL; Hemoglobin A1c % 5.7 %
[2022-09-18 11:39] LABS: Alanine Aminotransferase 17 U/L (0-40); Albumin Level 4.1 g/dL (3.5-5.0); Alkaline Phosphatase 80 U/L (39-117); Anion Gap 13 (12-20); Aspartate Amino Transferase 17 U/L (5-37); Bilirubin Total 1.1 mg/dL (0.0-1.0); Blood Urea Nitrogen 14 mg/dL (9-16); Calcium 9.7 mg/dL (8.4-10.2); Carbon Dioxide 28 mmol/L (22-29); Chloride 103 mmol/L (96-108); Cholesterol 99 mg/dL; Estimated Glomerular Filt Rate > 60; Glucose Fasting 108 mg/dL (60-99); HDL Cholesterol 32 mg/dL; LDL Cholesterol Calculated 53 mg/dl; Magnesium 1.8 mg/dL (1.6-2.6); Potassium 4.6 mmol/L (3.3-5.1); Sodium 139 mmol/L (135-145); Total Protein 6.5 g/dL (6.5-8.0); Triglycerides 73 mg/dL
[2022-09-18 11:48] LABS: Free T4 (Free Thyroxine) 1.01 ng/dL (0.71-1.85); Thyroid Stimulating Hormone 0.99 uIU/mL (0.32-4.0); Vitamin D 25-OH Total 42.7 ng/mL (>30)
== END 2022-09-18 09:35 | disposition home or self-care (01) ==
LOC: HO.LAB 09:34
PROVIDERS: PCP Internal Medicine; Visit Provider Internal Medicine
DX: M54.50 Low back pain, unspecified (principal); M25.551 Pain in right hip; M25.552 Pain in left hip; E78.00 Pure hypercholesterolemia, unspecified; E11.9 Type 2 diabetes mellitus without complications; I10 Essential (primary) hypertension; E03.9 Hypothyroidism, unspecified; E55.9 Vitamin D deficiency, unspecified
CPT/HCPCS: 36415; 72100; 73522; 80053; 80061; 82306; 83036; 83735; 84439; 84443; 85025

== ENCOUNTER 2022-11-14 09:03 | Outpatient (REF) | payer OTHER, SELFPAY | END 2022-11-14 09:04 | disposition home or self-care (01) | LOC: HO.HOSX 09:03 | PROVIDERS: Visit Provider Physician Assistant | DX: Z13.89 Encounter for screening for other disorder (principal) ==

== ENCOUNTER 2022-12-30 23:28 | Emergency (ER) | payer OTHER, SELFPAY ==
--- NOTE | 2022-12-30 | ECG_ITS ---
Test Reason : LOW BP Blood Pressure : / mmHG Vent. Rate : 072 BPM Atrial Rate : 072 BPM P-R Int : 286 ms QRS Dur : 072 ms QT Int : 394 ms P-R-T Axes : 062 045 054 degrees QTc Int : 431 ms Sinus rhythm with 1st degree A-V block Otherwise normal ECG When compared with ECG of 10-MAY-2022 11:00, No significant change was found Referred By: Generic ED Physician Electronically Signed By:MARK MORIN
--- NOTE | ~2022-12-30 | XR_ITS ---
EXAMINATION: XR CHEST CLINICAL INFORMATION: Chest pain. COMPARISON: 02/26/2022 TECHNIQUE: Frontal view of the chest was obtained. FINDINGS: The cardiomediastinal silhouette is normal. There is no focal lung consolidation or pleural effusion. The bony structures and soft tissues are unremarkable. XR/XR chest 1V IMPRESSION: No active cardiopulmonary disease.
[2022-12-30 23:35] VITALS: BP 100/70; BP 88/55; PULSE 72; PULSE 83; RESP 18; TEMP 36.8; O2SAT 96; BMI 28.7
[2022-12-31 00:12] LABS: MANUAL DIFF FLAG NO
[2022-12-31 00:15] LABS: Basophils Percent Auto 0.6 % (0-2); Eosinophils Absolute Auto 0.1 X10*3/uL (0.0-0.4); Eosinophils Percent Auto 1.5 % (0-4); Hematocrit 31.8 % (42.0-52.0); Hemoglobin 11.3 g/dl (14.0-18.0); Imm Gran Abs Auto 0.01 X10*3/uL (0.00-0.03); Imm Gran Pct Auto 0.2 % (0.0-0.4); Lymphocytes Absolute Auto 2.2 X10*3/uL (1.2-4.9); Lymphocytes Percent Auto 47.4 % (20-40); Mean Corpuscular HGB Conc 35.5 g/dl (31.0-36.0); Mean Corpuscular Volume 90.1 fL (80.0-98.0); Mean Platelet Volume 10.1 fL (9.4-12.4); Monocytes Absolute Auto 0.4 X10*3/uL (0.1-1.2); Monocytes Percent Auto 7.7 % (2-11); Neutrophils Percent Auto 42.6 % (45-73); Red Blood Count 3.53 X10*6/uL (4.60-5.80); Red Cell Distribution Width 15.8 % (11.0-16.0); White Blood Count 4.7 X10*3/uL (4.8-10.8)
[2022-12-31 00:17] LABS: Platelet Count 64 X10*3/uL (160-400)
[2022-12-31 00:23] VITALS: BP 91/54; PULSE 73; RESP 12; TEMP 36.6; O2SAT 97
[2022-12-31 00:26] LABS: Anion Gap 12 (12-20); Blood Urea Nitrogen 11 mg/dL (9-16); Calcium 9.9 mg/dL (8.4-10.2); Carbon Dioxide 25 mmol/L (22-29); Chloride 103 mmol/L (96-108); Creatinine Clr Calc Pharmacy 111.2; Estimated Glomerular Filt Rate > 60; Glucose Random 135 mg/dL (60-115); Sodium 136 mmol/L (135-145)
[2022-12-31 00:34] LABS: Troponin-I High Sensitivity < 2.7 ng/L (<3.5-35.0)
[2022-12-31 00:54] LABS: OBS Int Ctl Valid YES; OBS1 NEGATIVE (NEGATIVE)
[2022-12-31] MEDS: 0.9 % Sodium Chloride 1,000 ML 999 ML IV ×2 (01:16)
--- NOTE | 2022-12-31 01:31 | ED_ITS ---
HPI - Arrhythmia/Palpitations General Chief Complaint: Arrhythmia/Palpitations Stated Complaint: palpitations Time Seen by Provider: 12/31/22 00:22 History of Present Illness HPI narrative: Patient is a 57-year-old male history of schizophrenia, kidney mass on the right. Presents today with having palpitation. Not quite feeling right. Fairly sudden in onset on going for the last 2 days. No fever no chills no cough no congestion no bloody stool. No diaphoresis. Patient just took is sleeping pill prior to arrival. No diaphoresis. Chest pain. Positive feeling weak. No near syncope or syncopal episode. Patient from home. Did not notice any blood in his stool. No travel history. No leg swelling. No history of blood clots. No chest pain. No diaphoresis. Related Data Home Medications Medication Instructions Recorded Confirmed blood sugar diagnostic #10 ea 03/15/20 10/08/22 lancets 28 gauge #100 ea 03/15/20 10/08/22 cholecalciferol (vitamin D3) 25 1 tab PO DAILY 02/26/22 10/08/22 mcg (1,000 unit) tablet (Vitamin D3) perphenazine 8 mg tablet 8 mg PO TID 02/26/22 10/08/22 atorvastatin 10 mg tablet 10 mg PO BEDTIME 04/29/22 10/08/22 bismuth subsalicylate 525 mg/15 mL 525 mg PO DAILY PRN INDEGESTION 04/29/22 10/08/22 oral suspension perphenazine 4 mg tablet 1 tab PO BID 04/29/22 10/08/22 Previous Rx's Medication Instructions Recorded pen needle, diabetic 31 gauge x #1,200 ea 03/12/2109/16 lactulose 10 gram/15 mL oral 15 ml PO BEDTIME PRN constipation 05/15/21 solution #237 mL acetaminophen 500 mg tablet 500 mg PO Q6H PRN fever or pain 30 07/15/21 (Tylenol Extra Strength) days #120 tabs QUAD CANE #1 ea 07/31/21 omeprazole 20 mg capsule,delayed 20 mg PO DAILY #90 caps 12/31/21 release pen needle, diabetic 33 gauge x #100 ea 01/21/22/ (Comfort EZ Pen [place]) ibuprofen 600 mg tablet 600 mg PO TID PRN for pain #90 tabs 04/19/22 nicotine 21 mg/24 hr daily 21 mg transdermal DAILY 28 days 05/09/22 transdermal patch #28 ea trazodone 50 mg tablet 150 mg PO BEDTIME 30 days #90 tabs 05/09/22 multivitamin 1 tab PO DAILY #90 tabs 05/26/22 levothyroxine 50 mcg tablet 50 mcg PO QAM #90 tabs 06/25/22 atorvastatin 10 mg tablet 10 mg PO DAILY 90 days #90 tabs 06/26/22 acetaminophen 500 mg tablet 500 mg PO Q6H PRN fever or pain 08/05/22 (Tylenol Extra Strength) #14 tabs naproxen 500 mg tablet 500 mg PO BID PRN pain 10 days #20 08/05/22 tabs tramadol 50 mg tablet 50 mg PO Q8H PRN pain, severe #9 08/05/22 tabs insulin glargine 100 unit/mL (3 48 unit (0.48 mL) subcut DAILY #15 08/12/22 mL) subcutaneous pen (Lantus mL Solostar U-100 Insulin) magnesium oxide 400 mg PO DAILY 30 days #30 tabs 08/19/22 famotidine 20 mg tablet 40 mg PO BID 30 days #120 tabs 09/18/22 desmopressin 0.1 mg tablet 0.2 mg PO BEDTIME #90 tabs 09/26/22 lidocaine 5 % topical patch 1 patch topical DAILY PRN pain #30 10/08/22 (Lidoderm) ea lisinopril 5 mg tablet 5 mg PO DAILY #90 tabs 10/25/22 semaglutide 0.25 mg or 0.5 mg (2 0.5 mg (0.4 mL) subcut QWEEK #1.5 11/17/22 mg/1.5 mL) subcutaneous pen mL injector docusate sodium 100 mg capsule 200 mg PO BID 30 days #120 caps 11/18/22 metoprolol tartrate 50 mg tablet 50 mg PO BID #180 tabs 11/18/22 tizanidine 4 mg tablet 4 mg PO BEDTIME for low back pain 11/19/22 #30 tabs aspirin 81 mg chewable tablet 1 tab PO QAM 90 days #90 tabs 11/21/22 Allergies Allergy/AdvReac Type Severity Reaction Status Date / Time clozapine [From Clozaril] Allergy Mild ringing in Verified 10/08/22 12:49 ears, pain, leukopenia trifluoperazine Allergy Tongue Verified 10/08/22 12:49 [From Stelazine] Swelling Review of Systems Review of Systems: Positive generalized malaise positive palpitation and seems to be heart rather than fast or slow. The palpitation seems to be regular. Yes all other systems are reviewed and are negative COUNTS INCLUDE 234 BEDS AT THE [facility] Past Medical History Attestation statement: The following information was validated with the patient. Medical History Acquired hypothyroidism Anxiety Benign essential hypertension Constipation Diabetes mellitus Dyspnea GERD without esophagitis Hyperlipidemia Hypertension, essential Hypomagnesemia Hypothyroidism Insulin dependent diabetes mellitus Lung nodule Midline low back pain Nicotine dependence, cigarettes, uncomplicated Nocturnal enuresis Obesity (BMI 30-39.9) Obesity (BMI 30-39.9) Obesity (BMI 35.0-39.9 without comorbidity) Obstructive sleep apnea On beta evaristo at home Pure hypercholesterolemia Schizoaffective disorder Schizophrenia Screening for STD (sexually transmitted disease) Smoker Thrombocytopenia Surgical History H/O colonoscopy (~10/12/20) History of left inguinal hernia repair Hx of facial fracture repair Family History Family History Father CVD (cardiovascular disease) Mother CVD (cardiovascular disease) Diabetes Sister Colon polyps Social History Social History Household Members: Other Household Members Other:: lives in a supported apartment problem Housing: Apartment Housing Other:: lives in a supported apartment problem Do you presently have visiting nurse or other home services: No Alcohol intake: former Patient Tobacco Use Status: Current someday Tobacco user Tobacco use type: Cigarette and Cigar Cigarette Packs Per Day: 0.75 Cigarettes Per Day: 40 Years Smoked: 30 Smoked in Last 30 Days: Yes e-Cigarette/Vaping Use: Never Used Second Hand Smoke Exposure: No Use of substances other than those prescribed or required for medical reasons: No service: No Current occupational status: disabled Sexual orientation: Straight/Heterosexual Cognitive needs: No Hearing needs: No Vision needs: No Physical Exam Vital Signs: Vital Signs: Last Vital Signs Temp 98 F 12/31/22 01:54 Pulse 71 12/31/22 02:12 Resp 14 12/31/22 01:54 BP 104/59 L 12/31/22 02:12 Pulse Ox 98 12/31/22 01:54 O2 Del Method Room Air 12/31/22 01:54 BMI result Body Mass Index 28.7 Appearance: Alert. Oriented X3. No acute distress. Eyes: Pupils equal, round and reactive to light. ENT: Pharynx normal. Neck: Normal inspection. Neck supple. No lymph nodes noted. No crepitus CVS: Normal heart rate and rhythm. Pulses normal. Normal S1 and S2 Respiratory: No respiratory distress. Breath sounds normal. No Wheezing. No rales Abdomen: Soft and nontender. No rigidity. No distention. good BS x4 Skin: Skin warm and dry. Normal skin color. Normal skin turgor. Extremities: No lower extremity edema. Neurovascular intact to all extremities. No Lacerations. No Rash Neuro: Oriented X 3. No motor deficit. No sensory deficit. Moving all extermities. No slurred speech Medications Administered Discontinued Medications Generic Name Dose Route Start Last Admin Trade Name Freq PRN Reason Stop Dose Admin Sodium Chloride 1,000 mls @ 999 mls/hr 12/31/22 00:45 12/31/22 01:16 Ns IV 12/31/22 01:45 999 mls/hr .Q1H1M BENJA Administration Sodium Chloride 1,000 mls @ 999 mls/hr 12/31/22 00:45 12/31/22 01:16 Ns IV 12/31/22 01:45 999 mls/hr .Q1H1M BENJA Administration Medical Decision Making Medical Decision Making [facility] Narrative: Question etiology of the palpitation. My interpretation patient's EKG showed a sinus rhythm heart rate is 70 TN is prolonged with first-degree heart block. Q RS QTC within normal limits there is no acute ST segment elevation noted. His chest x-ray showed no pneumonia no pneumothorax. Patient's hemoglobin is 11 rectal exam was heme-negative brown stool. After IV fluids blood pressure recover nicely question secondary to dehydration. Patient well appearing. Neurologically intact. Not orthostatic. Ambulates with normal gait. Will discharge patient home question secondary to dehydration causing patient's symptoms Differential Diagnosis Dehydration, arrhythmia, GI bleed, anemia, near syncopal episode, Lab Data [facility] Lab Attestation statement: I reviewed the patient's lab results. 12/31/22 00:08 12/31/22 00:08 Labs: Lab Results 12/31/22 12/31/22 12/31/22 Range/Units 00:08 00:08 00:08 WBC 4.7 L (4.8-10.8) X10*3/uL RBC 3.53 L (4.60-5.80) X10*6/uL Hgb 11.3 L (14.0-18.0) g/dl Hct 31.8 L (42.0-52.0) % MCV 90.1 (80.0-98.0) fL MCH 32.0 (27.0-33.0) pg MCHC 35.5 (31.0-36.0) g/dl RDW 15.8 (11.0-16.0) % Plt Count 64 L (160-400) X10*3/uL MPV 10.1 (9.4-12.4) fL Immature Gran % (Auto) 0.2 (0.0-0.4) % Neut % (Auto) 42.6 L (45-73) % Lymph % (Auto) 47.4 H (20-40) % [place] % (Auto) 7.7 (2-11) % Eos % (Auto) 1.5 (0-4) % Baso % (Auto) 0.6 (0-2) % Lymph # (Auto) 2.2 (1.2-4.9) X10*3/uL [place] # (Auto) 0.4 (0.1-1.2) X10*3/uL Eos # (Auto) 0.1 (0.0-0.4) X10*3/uL Baso # (Auto) 0.0 (0.0-0.2) X10*3/uL Abs Immat Gran (auto) 0.01 (0.00-0.03) X10*3/uL Absolute Neuts (auto) 2.0 (2.0-8.3) x10*3/uL Absolute Nucleated RBC 0.000 (0.0-0.012) X10*3/uL Nucleated RBC % (auto) 0.0 (0.0-0.2) /100WBC Sodium 136 (135-145) mmol/L Potassium 4.0 (3.3-5.1) mmol/L Chloride 103 (96-108) mmol/L Carbon Dioxide 25 (22-29) mmol/L Anion Gap 12 (12-20) BUN 11 (9-16) mg/dL Creatinine 0.82 (0.5-1.4) mg/dL Estim Creat Clear Calc 111.2 Estimated GFR > 60 Random Glucose 135 H (60-115) mg/dL Calcium 9.9 (8.4-10.2) mg/dL Total Bilirubin (0.0-1.0) mg/dL Direct Bilirubin (0.0-0.5) mg/dL AST (5-37) U/L ALT (0-40) U/L Alkaline Phosphatase (39-117) U/L Troponin I High Sens < 2.7 (<3.5-35.0) ng/L Total Protein (6.5-8.0) g/dL Albumin (3.5-5.0) g/dL Lipase (8-78) U/L TSH (0.32-4.0) uIU/mL Stool Occult Blood (NEGATIVE) 12/31/22 12/31/22 Range/Units 00:46 01:15 WBC (4.8-10.8) X10*3/uL RBC (4.60-5.80) X10*6/uL Hgb (14.0-18.0) g/dl Hct (42.0-52.0) % MCV (80.0-98.0) fL MCH (27.0-33.0) pg MCHC (31.0-36.0) g/dl RDW (11.0-16.0) % Plt Count (160-400) X10*3/uL MPV (9.4-12.4) fL Immature Gran % (Auto) (0.0-0.4) % Neut % (Auto) (45-73) % Lymph % (Auto) (20-40) % [place] % (Auto) (2-11) % Eos % (Auto) (0-4) % Baso % (Auto) (0-2) % Lymph # (Auto) (1.2-4.9) X10*3/uL [place] # (Auto) (0.1-1.2) X10*3/uL Eos # (Auto) (0.0-0.4) X10*3/uL Baso # (Auto) (0.0-0.2) X10*3/uL Abs Immat Gran (auto) (0.00-0.03) X10*3/uL Absolute Neuts (auto) (2.0-8.3) x10*3/uL Absolute Nucleated RBC (0.0-0.012) X10*3/uL Nucleated RBC % (auto) (0.0-0.2) /100WBC Sodium (135-145) mmol/L Potassium (3.3-5.1) mmol/L Chloride (96-108) mmol/L Carbon Dioxide (22-29) mmol/L Anion Gap (12-20) BUN (9-16) mg/dL Creatinine (0.5-1.4) mg/dL Estim Creat Clear Calc Estimated GFR Random Glucose (60-115) mg/dL Calcium (8.4-10.2) mg/dL Total Bilirubin 0.8 (0.0-1.0) mg/dL Direct Bilirubin 0.3 (0.0-0.5) mg/dL AST 21 (5-37) U/L ALT 16 (0-40) U/L Alkaline Phosphatase 70 (39-117) U/L Troponin I High Sens (<3.5-35.0) ng/L Total Protein 6.4 L (6.5-8.0) g/dL Albumin 3.8 (3.5-5.0) g/dL Lipase 43 (8-78) U/L TSH 2.63 (0.32-4.0) uIU/mL Stool Occult Blood NEGATIVE (NEGATIVE) Independent Interpretation I performed an independent interpretation of an: EKG (Sinus heart rate is 70 TN is prolonged QRS is normal QTC is normal there is no acute ST segment elevation.) Radiology Impression Discussion of test interpretation with radiology: I have reviewed the radiologist's reading. External Record Review External record reviewed: Office record Chronic Conditions Schizophrenia, diabetes, hypothyroid, hypertension, reflux Discharge Plan Discharge Clinical Impression: Acute dehydration, Heart palpitations Patient Disposition: Home, Self-Care Instructions: Heart Palpitations (DC), Dehydration (ED) Prescriptions: No Action (DME) pen needle, diabetic 31 gauge x 5/16 needle See Rx Instructions .ROUTE .MEDSUPPLY Qty: 1200 0RF Rx Instructions: Use 4 times daily lactulose 10 gram/15 mL solution 15 ml PO BEDTIME PRN (Reason: constipation) Qty: 237 2RF acetaminophen [Tylenol Extra Strength] 500 mg tablet 500 mg PO Q6H PRN (Reason: fever or pain) 30 Days Qty: 120 2RF Rx Instructions: TAKE 1 TABLET BY MOUTH EVERY 6 HOURS NEEDED. (NO MORE THAN 4 TABLETS A DAY) omeprazole 20 mg capsule,delayed release(DR/EC) 20 mg PO DAILY Qty: 90 3RF (DME) Comfort EZ Pen [place] 33 gauge x 1/4 needle See Rx Instructions .ROUTE .MEDSUPPLY Qty: 100 12RF Rx Instructions: As directed ibuprofen 600 mg tablet 600 mg PO TID PRN (Reason: for pain) Qty: 90 0RF multivitamin Tablet 1 tab PO DAILY Qty: 90 2RF levothyroxine 50 mcg tablet 50 mcg PO QAM Qty: 90 3RF atorvastatin 10 mg tablet 10 mg PO DAILY 90 Days Qty: 90 1RF insulin glargine [Lantus Solostar U-100 Insulin] 100 unit/mL (3 mL) insulin pen 48 unit subcut DAILY Qty: 15 5RF magnesium oxide 400 mg magnesium tablet 400 mg PO DAILY 30 Days Qty: 30 3RF famotidine 20 mg tablet 40 mg PO BID 30 Days Qty: 120 5RF desmopressin 0.1 mg tablet 0.2 mg PO BEDTIME Qty: 90 2RF lisinopril 5 mg tablet 5 mg PO DAILY Qty: 90 0RF Ozempic 0.25 mg or 0.5 mg(2 mg/1.5 mL) pen injector 0.5 mg subcut QWEEK Qty: 1.5 2RF metoprolol tartrate 50 mg tablet 50 mg PO BID Qty: 180 0RF docusate sodium 100 mg capsule 200 mg PO BID 30 Days Qty: 120 0RF tizanidine 4 mg tablet 4 mg PO BEDTIME Qty: 30 1RF aspirin 81 mg tablet,chewable 1 tab PO QAM 90 Days Qty: 90 3RF perphenazine 4 mg tablet 1 tab PO BID bismuth subsalicylate 525 mg/15 mL Suspension 525 mg PO DAILY PRN (Reason: INDEGESTION) Rx Instructions: do not exceed 8 doses in a 24 hour period atorvastatin 10 mg tablet 10 mg PO BEDTIME nicotine 21 mg/24 hr Patch 24 Hour 21 mg transdermal DAILY 28 Days Qty: 28 0RF trazodone 50 mg Tablet 150 mg PO BEDTIME 30 Days Qty: 90 0RF perphenazine 8 mg tablet 8 mg PO TID cholecalciferol (vitamin D3) [Vitamin D3] 25 mcg (1,000 unit) tablet 1 tab PO DAILY acetaminophen [Tylenol Extra Strength] 500 mg tablet 500 mg PO Q6H PRN (Reason: fever or pain) Qty: 14 0RF naproxen 500 mg tablet 500 mg PO BID PRN (Reason: pain) 10 Days Qty: 20 0RF tramadol 50 mg tablet 50 mg PO Q8H PRN (Reason: pain, severe) Qty: 9 0RF (DME) QUAD CANE See Rx Instructions .Route .MEDSUPPLY Qty: 1 0RF Rx Instructions: As directed lidocaine [Lidoderm] 5 % adhesive patch,medicated 1 patch topical DAILY MDD remove after 12 hours PRN (Reason: pain) Qty: 30 3RF Rx Instructions: leave on most painful area for up to 12 hrs (DME) blood sugar diagnostic Strip See Rx Instructions Not Applicable .MEDSUPPLY Qty: 10 Rx Instructions: As directed (DME) lancets 28 gauge misc See Rx Instructions topical .MEDSUPPLY Qty: 100 Rx Instructions: As directed Referrals: [facility] [Provider Group] - 01/02/23
[2022-12-31 01:45] LABS: Alanine Aminotransferase 16 U/L (0-40); Albumin Level 3.8 g/dL (3.5-5.0); Alkaline Phosphatase 70 U/L (39-117); Aspartate Amino Transferase 21 U/L (5-37); Bilirubin Direct 0.3 mg/dL (0.0-0.5); Bilirubin Total 0.8 mg/dL (0.0-1.0); Lipase 43 U/L (8-78); Total Protein 6.4 g/dL (6.5-8.0)
[2022-12-31 01:54] VITALS: BP 121/70; PULSE 56; RESP 14; TEMP 36.6; O2SAT 98
[2022-12-31 01:58] LABS: TSH reflex Free T4 2.63 uIU/mL (0.32-4.0)
[2022-12-31 02:08] VITALS: BP 124/65; PULSE 58
[2022-12-31 02:09] VITALS: BP 108/57; PULSE 71
[2022-12-31 02:12] VITALS: BP 104/59; PULSE 71
[2022-12-31 04:10] VITALS: BP 117/63; PULSE 63; RESP 15; O2SAT 98
== END 2022-12-31 05:53 | disposition home or self-care (01) ==
PROVIDERS: Emergency Provider Emergency Medicine Emergency Medical Services; PCP Internal Medicine
DX: E86.0 Dehydration (principal); R00.2 Palpitations; E11.9 Type 2 diabetes mellitus without complications; I10 Essential (primary) hypertension; E78.5 Hyperlipidemia, unspecified; F17.210 Nicotine dependence, cigarettes, uncomplicated; Z79.899 Other long term (current) drug therapy; Z79.4 Long term (current) use of insulin; Z79.82 Long term (current) use of aspirin
CPT/HCPCS: 36415; 71045; 80048; 80076; 82272; 83690; 84443; 84484; 85025; 93005; 99283; 99285

== ENCOUNTER 2023-01-01 10:07 | Outpatient (AMB) | payer OTHER, SELFPAY ==
--- NOTE | 2023-01-01 10:08 | MHC.PC.OV ---
Vital Signs 01/01/23 10:09 Height 5 ft 10 in Weight 212 lb BMI 30.4 BP 110/78 Blood Pressure Location Lt brachial Position Sitting Pulse 84 Pulse Source Pulse Oximeter Pulse Oximetry (%) 98 Oxygen Delivery Method Room Air Intake Visit Reasons: PE Button Inspector Required: No Accompanied by: Self / Same As Patient Allergies clozapine [From Clozaril] Allergy (Mild, Verified 01/01/23 10:47) ringing in ears, pain, leukopenia trifluoperazine [From Stelazine] Allergy (Verified 01/01/23 10:47) Tongue Swelling Medication List - Last Reconciled 01/01/23 by Mando Turpin MD acetaminophen (Tylenol Extra Strength) 500 mg PO Q6H PRN aspirin 1 tab PO QAM 90 days atorvastatin 10 mg PO BEDTIME bismuth subsalicylate 525 mg PO DAILY PRN blood sugar diagnostic As directed cholecalciferol (vitamin D3) (Vitamin D3) 1 tab PO DAILY desmopressin 0.2 mg (2 x 0.1 mg) PO BEDTIME docusate sodium 200 mg (2 x 100 mg) PO BID 30 days famotidine 40 mg (2 x 20 mg) PO BID 30 days ibuprofen 600 mg PO TID PRN insulin glargine (Lantus Solostar U-100 Insulin) 48 units (0.48 mL) subcut DAILY lactulose 15 mL PO BEDTIME PRN lancets As directed levothyroxine 50 mcg PO QAM lidocaine 5% (Lidoderm) 1 patch topical DAILY PRN MDD remove after 12 hours lisinopril 5 mg PO DAILY magnesium oxide 400 mg PO DAILY 30 days metoprolol tartrate 50 mg PO BID multivitamin 1 tab PO DAILY naproxen 500 mg PO BID PRN 10 days nicotine 21 mg transdermal DAILY 28 days omeprazole 20 mg PO DAILY pen needle, diabetic Use 4 times daily pen needle, diabetic (Comfort EZ Pen [place]) As directed perphenazine 8 mg PO TID perphenazine 1 tab PO BID [QUAD CANE As directed] semaglutide 0.5 mg (0.4 mL) subcut QWEEK tizanidine 4 mg PO BEDTIME tramadol 50 mg PO Q8H PRN trazodone 150 mg (3 x 50 mg) PO BEDTIME 30 days Tobacco use date assessed: 01/01/23 Dental Screening Dental Screen Date: 01/01/23 Did you have a dental visit in the last 12 months?: No Did you have a dental problem in the last 6 months where you did not have access to dental care?: No Was dental information given to patient?: No HPI PE HPI Details Patient comes in today for his annual physical examination States that he currently feels okay He denies any headaches or dizziness Denies any chest pains, no SOB No nausea/vomiting, no abdominal pain No change in bowel habits noted Denies any acute urinary symptoms He continues to experience increased pain over his lower back and in both hips lately - feels stiff often and states that his joint pains feel worse in the morning when he first wakes up Needs his Acetaminophen Rx refilled Was scheduled to be seen by orthopedics last month but he did not keep his appt - was scared that they were going to operate on him immediately Had his follow up labs done yesterday - to discuss his results Had his screening colonoscopy done with Dr. Sanjiv august in 2020 - (+) tubular adenoma and he was recommended to have a repeat colonoscopy done in 3 years (2023) [facility] Medical History (Updated 01/01/23 @ 11:19 by Mando Turpin MD) Acquired hypothyroidism Anxiety Benign essential hypertension Constipation Diabetes mellitus Dyspnea Facet arthritis of lumbar region GERD without esophagitis Hyperlipidemia Hypertension, essential Hypomagnesemia Hypothyroidism Insulin dependent diabetes mellitus Lung nodule Midline low back pain Nicotine dependence, cigarettes, uncomplicated Nocturnal enuresis Obesity (BMI 30-39.9) Obesity (BMI 30-39.9) Obesity (BMI 35.0-39.9 without comorbidity) Obstructive sleep apnea On beta evaristo at home Pure hypercholesterolemia Schizoaffective disorder Schizophrenia Screening for STD (sexually transmitted disease) Smoker Thrombocytopenia Surgical History (Updated 01/01/23 @ 11:00 by Mando Turpin MD) H/O colonoscopy (~10/12/20) History of left inguinal hernia repair Hx of facial fracture repair Family History Father CVD (cardiovascular disease) Mother CVD (cardiovascular disease) Diabetes Sister Colon polyps Social History Household Members: Other Household Members Other:: lives in a supported apartment problem Housing: Apartment Housing Other:: lives in a supported apartment problem Do you presently have visiting nurse or other home services: No Alcohol intake: former Patient Tobacco Use Status: Current someday Tobacco user Tobacco use type: Cigarette and Cigar Cigarette Packs Per Day: 0.75 Cigarettes Per Day: 40 Years Smoked: 30 e-Cigarette/Vaping Use: Never Used Second Hand Smoke Exposure: No service: No Current occupational status: disabled Sexual orientation: Straight/Heterosexual Cognitive needs: No Hearing needs: No Vision needs: No Questionnaire PHQ-9 Over the last 2 weeks, how often have you been bothered by any of the following problems? 1. Little interest or pleasure in doing things: not at all 2. Feeling down, depressed, or hopeless: not at all 3. Trouble falling or staying asleep, or sleeping too much: not at all 4. Feeling tired or having little energy: not at all 5. Poor appetite or overeating: not at all 6. Feeling bad about yourself - or that you are a failure or have let yourself or your family down: not at all 7. Trouble concentrating on things, such as reading the newspaper or watching television: not at all 8. Moving or speaking so slowly that other people could have noticed. Or the opposite - being so fidgety or restless that you have been moving around a lot more than usual: not at all 9. Thoughts that you would be better off or of hurting yourself in some way: not at all Total score: 0 Depression Screening Interpretation: Negative (is on Rx for depression/mood disorder) 87874 - PHQ-9 Billing: Yes Source: Developed by Drs. Jaleel Shaffer, Sindy Vance, Ankit Yang and colleagues, with an educational riana from [employer]. Thrive Questionnaire Date Thrive assessed: 01/01/23 I am a: Patient What is your living situation today?: I have a steady place to live Within the past 12 months, did the food you bought not last and you didn't have the money to get more?: Never true Within the past 12 months, did you worry whether your food would run out before you got money to buy more?: Never true Do you have trouble paying for medicines?: No Do you have trouble getting transportation to medical appointments?: No Do you have trouble paying your heating and electricity bill?: No Do you have trouble taking care of your child, family member or friend?: No Do you have trouble with day-to-day activities such as bathing, preparing meals, shopping, managing finances, etc.?: No Are you currently unemployed and looking for a job?: No Are you interested in more education?: No Please select the resources that you would like help with: None Currently or been in a relationship where the following occur: no concerns reported AUDIT C Alcohol Use Questionnaire (AUDIT-C) 1. How often do you have a drink containing alcohol?: Never 3. How often do you have six or more drinks on one occasion?: Never Total Score: 0 Score Reviewed/Action Taken: Yes MARCY-7 AMB Questionnaire MARCY-7 Date MARCY - 7 assessed: 01/01/23 Feeling nervous, anxious, or on edge: 1 = Several days Not being able to stop or control worryin = Several days Worrying too much about different things: 1 = Several days Trouble relaxin = Not at all Being so restless that it is hard to sit still: 1 = Several days Becoming easily annoyed or irritable: 0 = Not at all Feeling afraid as if something awful might happen: 2 = More than half the days Total MARCY-7 score (0-4 normal; 5-9 mild; 10-14 moderate; 15-21 severe): 6 Source: Developed by Drs. Jaleel Shaffer, Sindy Vance, Ankit Yang and colleagues, with an educational riana from [employer]. Review of Systems Const Denies chills, Denies fatigue, Denies fever(s), Denies headache(s), Denies malaise and Denies weakness Eyes Denies blurry vision, Denies change in vision, Denies irritation and Denies itchy eyes ENT Denies dysphagia, Denies dizziness, Denies otalgia, Denies headache(s), Denies nasal congestion, Denies neck pain, Denies odynophagia and Denies sore throat Card Denies chest pain, Denies rapid heart rate, Denies irregular heart rhythm, Denies palpitations and Denies dyspnea Resp Denies chest congestion, Denies cough, Denies dyspnea and Denies wheezing GI Denies abdominal pain, Denies bloating, Denies constipation, Denies dysphagia, Denies heartburn, Denies diarrhea, Denies nausea, Denies odynophagia and Denies vomiting Denies hematuria, Denies difficulty urinating, Denies dysuria, Denies urinary frequency and Denies urinary urgency Musc Reports back pain (on and off; worse at night), Reports arthralgias (over both hips; on and off in the hands and knees) and Denies neck pain Skin/Breast Denies change in pigmentation, Denies lesions, Denies rash and Denies unusual bruising Neuro Denies dizziness, Denies headache(s), Denies paresthesias and Denies weakness Endo Denies fatigue and Denies palpitations Aller/Immun Denies itchy eyes and Denies wheezing Physical exam (Primary Care) Vital Signs: Last Vital Signs Pulse 84 01/01/23 10:09 BP 110/78 01/01/23 10:09 Pulse Ox 98 01/01/23 10:09 Oxygen Delivery Method Room Air 01/01/23 10:09 BMI result Body Mass Index 30.4 Tobacco/Smoking Status: Tobacco use Status Tobacco use date assessed 01/01/23 01/01/23 10:17 Patient Tobacco Use Status Current someday Tobacco 01/01/23 10:17 Tobacco use type Cigarette,Cigar 01/01/23 10:17 e-Cigarette/Vaping Use Never Used 01/01/23 10:17 PHQ-9: PHQ-9 Score PHQ-9: Total score 0 01/01/23 11:00 Depression Screening Interpretation: Negative (is on Rx for depression/mood disorder) Thrive Assessment: Date of Thrive Assessment Date Thrive assessed 01/01/23 01/01/23 10:17 Currently or been in a relationship where the following occur: no concerns reported Const General: no acute distress, alert and awake Orientation/consciousness: patient oriented x3 HENMT Head: Yes normocephalic and Yes atraumatic Ears: external ears normal, TM's normal bilaterally and EAC's normal General nose exam: No nasal discharge present Face and sinus: Yes normal facial exam and Yes sinuses nontender Teeth and gingiva: dentition normal Throat: Yes posterior oropharynx normal and Yes tonsils normal (no TP congestion) Eyes Eyelids: Yes eyelids normal Conjunctivae: conjunctivae normal Pupils: Equal, round and reactive pupils present EOM: EOMs intact bilaterally Neck Neck: Yes no lymphadenopathy and Yes supple Thyroid: Thyroid normal Resp Auscultation: clear to auscultation bilaterally, no rales and no wheezes Cardio Rate: regular rate Rhythm: regular rhythm Heart sounds: no murmurs GI Palpation (GI): Soft to palpation, nontender and No hepatosplenomegaly present Auscultation: normal bowel sounds General: Yes no CVA tenderness Back/Spine/Pelvis Back: no CVA tenderness Thoracic/Lumbar Spine: lumbar spinal tenderness Skin Lesions: no lesions Rashes: no rashes Neuro General: patient oriented x3, moves all extremities, no focal motor deficits and CN's II-XI intact bilaterally Cranial nerves: Yes Equal, round and reactive pupils present Cognition (Neuro): normal cognition Gait exam (Neuro): Normal gait present Extrem General: Yes no clubbing, cyanosis or edema Right lower extremity: hip/thigh Details: tenderness Location: of the hip Left lower extremity: hip/thigh Details: tenderness Location: of the hip Results AMB Hemoglobin A1c AMB Hemoglobin A1c 5.5 % Last Edit by ANGELA Ponce on 01/01/23 11:03 Results Reviewed Results Reviewed: Laboratory Tests 12/31/22 12/31/22 12/31/22 00:08 00:08 01:15 WBC 4.7 L Hgb 11.3 L Hct 31.8 L Plt Count 64 L Sodium 136 Potassium 4.0 Creatinine 0.82 Estimated GFR > 60 Random Glucose 135 H Calcium 9.9 AST 21 ALT 16 TSH 2.63 Assessment and Plan Assessment & Plan (1) Annual physical exam: Code(s): Z00.00 - Encounter for general adult medical examination without abnormal findings Plan: Results of his labs done yesterday reviewed and discussed with patient He had his colonoscopy done in 2020 (tubular adenoma) and is recommended to get repeat colonoscopy in 3 years (2023) (2) Diabetes mellitus: Code(s): E11.9 - Type 2 diabetes mellitus without complications Qualifiers: Diabetes mellitus type: type 2 Diabetes mellitus joint terminal attack controller insulin use: with residential use Diabetes mellitus complication status: without complication Qualified Code(s): E11.9 - Type 2 diabetes mellitus without complications; Z79.4 - detention (current) use of insulin Plan: In-office HgbA1c done today is at 5.5% (HgbA1c was at 5.7% a few months ago) -? goal is <? 7.0% Reinforced diabetic diet Continue Ozempic 0.5 mg SQ once a week, Lantus 55 units once a day and Novolog 3 times a day with meals per sliding scale Follow up with [facility] as scheduled (3) Pure hypercholesterolemia: Code(s): E78.00 - Pure hypercholesterolemia, unspecified Plan: Reinforced low cholesterol diet Advised that his labs done yesterday did not include a fasting lipid profile but he will be getting this done again in a couple of months Continue Atorvastatin 10 mg QD Will recheck his labs as scheduled in February 2023 for follow up (4) Benign essential hypertension: Code(s): I10 - Essential (primary) hypertension Plan: Reinforced low-sodium diet -? goal is systolic BP of 120 mm or less Continue Lisinopril 5 mg QD and Metoprolol 50 mg BID (5) Renal cell carcinoma of right kidney: Comment: 06/25 1.6 cm lesion right kidney Code(s): C64.1 - Malignant neoplasm of right kidney, except renal pelvis Plan: Repeat MRI in October 2021 revealed STABLE heterogeneously enhancing lesion at the posterior upper pole of the right kidney under 2 cm; no adenopathy noted Has been recommended by urology to continue observation for now although reminded patient that he may still require cryotherapy at some point if his condition changes Follow up with urology as scheduled for continuing monitoring and management (6) Thrombocytopenia: Code(s): D69.6 - Thrombocytopenia, unspecified Plan: Unclear etiology; RCC is rarely associated with thrombocytopenia Patient reports no increased bleeding lately Will continue to monitor his platelet count regularly for now Will consider referring him to hematology for further evaluation if this progresses (7) Acquired hypothyroidism: Code(s): E03.9 - Hypothyroidism, unspecified Plan: Continue Levothyroxine 50 mcg QD Reassured that his TFTs were normal on his labs done yesterday (8) Obstructive sleep apnea: Comment: Clinically I suspect that he may have JUANITA , but he smart enough to sense about what I am talking about and says he does not have JUANITA . Also says , he would not be able to use CPAP mask even if he has JUANITA , So no sense in doing a Sleep study . Code(s): G47.33 - Obstructive sleep apnea (adult) (pediatric) Plan: Follow up with pulmonary as scheduled Patient continues to feel that he does NOT have JUANITA and does not wish to get this checked out further (9) Hypomagnesemia: Code(s): E83.42 - Hypomagnesemia Plan: Corrected on his recent labs - continue Magnesium Oxide 400 mg QD (10) Facet arthritis of lumbar region: Code(s): M47.816 - Spondylosis without myelopathy or radiculopathy, lumbar region Plan: X-rays of the lumbar spine done back in 2016 revealed (+) multilevel facet arthritis Repeat lumbar spine x-rays done in September 2022 revealed the same - has lower thoracic and lumbar spine spondylosis and arthritis Reinforced activity and weight-lifting restrictions to avoid aggravating his low back pain; advised that PT may be helpful if his low back pain persists or gets worse Continue Tizanidine 4 mg Q HS PRN and Lidocaine patches QD PRN (11) Osteoarthritis of hips, bilateral: Code(s): M16.0 - Bilateral primary osteoarthritis of hip Qualifiers: Osteoarthritis type: primary Qualified Code(s): M16.0 - Bilateral primary osteoarthritis of hip Plan: X-rays of both hips done in 2022 revealed (+) moderate to severe bilateral hip osteoarthritis He was referred to orthopedics for further evaluation of his hip issues and was scheduled to be seen last month on 11/14/22 but patient cancelled his appt as he did not want to go then Have advised him to contact orthopedics VERNA to reschedule his appt and advised that even just gettinf cortisone injections, if appropriate, can help him a lot with his hip pain Continue Acetaminophen 500 mg Q 6 hours PRN for pain - Rx refilled (12) Anxiety: Code(s): F41.9 - Anxiety disorder, unspecified Plan: Continue Clonazepam 0.5 mg twice a day as needed (13) Schizophrenia: Code(s): F20.9 - Schizophrenia, unspecified Qualifiers: Schizophrenia type: unspecified Qualified Code(s): F20.9 - Schizophrenia, unspecified Plan: Continue Perphenazine 8 mg 1 tablet 3 times a day (at 8 am, 2 pm and at bedtime) and Perphenazine 4 mg tablet 1 tablet daily at 8 am and 2 mg tablet 1 tablet daily at 2 pm Is also on Trazodone at 200 mg Q HS Follow-up with Psychiatry as scheduled (14) Smoker: Comment: COUNSELED TO QUIT SMOKING. HOWEVER BECAUSE OF HIS MENTAL DISORDER, AND LIVING IN A DETENTION, HE IS NOT TO GOING TO CUT DOWN OR STOP SMOKING. Code(s): F17.200 - Nicotine dependence, unspecified, uncomplicated Plan: States that he has quit cigarettes and now just smokes cigars occasionally - counseled again on smoking cessation (applies to ALL tobacco products) (15) Obesity (BMI 30-39.9): Code(s): E66.9 - Obesity, unspecified Plan: Reinforced diet/exercise as tolerated/lose weight Plan Follow up as scheduled in February 2023 Orders: Orders Prostate Specific Antigen Scr 02/07/23 Z00.00 - Encounter for general adult medical examination without abnormal findings AMB Hemoglobin A1c Today E11.9 - Type 2 diabetes mellitus without complications Medications: Changed From acetaminophen (Tylenol Extra Strength) 500 mg PO Q6H PRN 14 tabs 0RF fever or pain To acetaminophen (Tylenol Extra Strength) maximum of 4 tablets per day 500 mg PO Q6H 30 days PRN 120 tabs 3RF fever or pain Coding Level of Care Code Est Pt Prev Care 40-64y([id number]) Diagnoses Annual physical exam Z00.00 Diabetes mellitus E11.9; Z79.4 Diabetes mellitus type: type 2 Diabetes mellitus residential insulin use: with joint terminal attack controller use Diabetes mellitus complication status: without complication Pure hypercholesterolemia E78.00 Benign essential hypertension I10 Renal cell carcinoma of right kidney C64.1 Thrombocytopenia D69.6 Acquired hypothyroidism E03.9 Obstructive sleep apnea G47.33 Hypomagnesemia E83.42 Facet arthritis of lumbar region M47.816 Osteoarthritis of hips, bilateral M16.0 Osteoarthritis type: primary Anxiety F41.9 Schizophrenia F20.9 Schizophrenia type: unspecified Smoker F17.200 Obesity (BMI 30-39.9) E66.9
[2023-01-01 10:09] VITALS: BP 110/78; PULSE 84; O2SAT 98; BMI 30.4
== END 2023-01-01 11:13 | disposition home or self-care (01) ==
PROVIDERS: Visit Provider Internal Medicine
DX: E11.9 Type 2 diabetes mellitus without complications (principal)
CPT/HCPCS: 83036; 99396

== ENCOUNTER 2023-01-15 11:49 | Outpatient (AMB) | payer OTHER, SELFPAY ==
--- NOTE | 2023-01-15 11:56 | MHC.OFFVIS ---
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 He states that his symptoms have gotten worse over the last few years in spite of continued non operative treatments. He also reports intermittent discomfort along the lateral aspects of both of his hips. He has done physical therapy which aggravated his pain. He has also tried Tylenol and anti-inflammatory medicines which gave him minimal relief. Patient also reports intermittent weakness in both his legs. Allergies clozapine [From Clozaril] Allergy (Mild, Verified 01/15/23 11:56) ringing in ears, pain, leukopenia trifluoperazine [From Stelazine] Allergy (Verified 01/15/23 11:56) Tongue Swelling Medication List - Last Reconciled 01/15/23 by Markos Henley MD acetaminophen (Tylenol Extra Strength) 500 mg PO Q6H PRN 30 days aspirin 1 tab PO QAM 90 days atorvastatin 10 mg PO BEDTIME bismuth subsalicylate 525 mg PO DAILY PRN blood sugar diagnostic As directed cholecalciferol (vitamin D3) (Vitamin D3) 1 tab PO DAILY desmopressin 0.2 mg (2 x 0.1 mg) PO BEDTIME docusate sodium 200 mg (2 x 100 mg) PO BID 30 days famotidine 40 mg (2 x 20 mg) PO BID 30 days ibuprofen 600 mg PO TID PRN insulin glargine (Lantus Solostar U-100 Insulin) 48 units (0.48 mL) subcut DAILY lactulose 15 mL PO BEDTIME PRN lancets As directed levothyroxine 50 mcg PO QAM lidocaine 5% (Lidoderm) 1 patch topical DAILY PRN MDD remove after 12 hours lisinopril 5 mg PO DAILY magnesium oxide 400 mg PO DAILY 30 days metoprolol tartrate 50 mg PO BID multivitamin 1 tab PO DAILY nicotine 21 mg transdermal DAILY 28 days omeprazole 20 mg PO DAILY pen needle, diabetic Use 4 times daily pen needle, diabetic (Comfort EZ Pen [place]) As directed perphenazine 8 mg PO TID perphenazine 1 tab PO BID [QUAD CANE As directed] semaglutide 0.5 mg (0.4 mL) subcut QWEEK tizanidine 4 mg PO BEDTIME trazodone 150 mg (3 x 50 mg) PO BEDTIME 30 days [facility] Medical History Facet arthritis of lumbar region Thrombocytopenia Hypomagnesemia Obesity (BMI 30-39.9) On beta evaristo at home Lung nodule Screening for STD (sexually transmitted disease) Obesity (BMI 30-39.9) Smoker Schizophrenia Nocturnal enuresis Anxiety Midline low back pain Acquired hypothyroidism GERD without esophagitis Constipation Pure hypercholesterolemia Benign essential hypertension Diabetes mellitus Obstructive sleep apnea Dyspnea Obesity (BMI 35.0-39.9 without comorbidity) Nicotine dependence, cigarettes, uncomplicated Schizoaffective disorder Insulin dependent diabetes mellitus Hypothyroidism Hypertension, essential Hyperlipidemia Surgical History H/O colonoscopy (~10/12/20) Hx of facial fracture repair History of left inguinal hernia repair Family History Father CVD (cardiovascular disease) Mother CVD (cardiovascular disease) Diabetes Sister Colon polyps Social History Household Members: Other Household Members Other:: lives in a supported apartment problem Housing: Apartment Housing Other:: lives in a supported apartment problem Do you presently have visiting nurse or other home services: No Alcohol intake: former Patient Tobacco Use Status: Current someday Tobacco user Tobacco use type: Cigarette and Cigar Cigarette Packs Per Day: 0.75 Cigarettes Per Day: 40 Years Smoked: 30 e-Cigarette/Vaping Use: Never Used Second Hand Smoke Exposure: No service: No Current occupational status: disabled Sexual orientation: Straight/Heterosexual Cognitive needs: No Hearing needs: No Vision needs: No Physical Exam Const Other: Well-nourished well-developed very friendly male awake alert and oriented x3 in no acute distress Back/Spine/Pelvis Other: Low back examination shows bilateral paraspinal muscle tenderness, pain with range of motion, positive straight leg raise test bilaterally at 70 degrees, 4/5 strength with testing of his bilateral hip flexors and knee extensors Extrem Other: Bilateral hip examination shows mild discomfort with range of motion, tenderness over his greater trochanteric bursa side, no overlying skin lesions Results Reviewed Results Reviewed: X-rays of the patient's bilateral hips show mild to moderate joint space narrowing, subchondral sclerosis, no acute bony abnormalities X-rays of the patient's lumbar spine show moderate diffuse degenerative disc disease, no acute bony abnormalities Assessment & Plan Assessment & Plan (1) Low back pain radiating down leg: Code(s): M54.50 - Low back pain, unspecified; M79.606 - Pain in leg, unspecified Plan Mr. White presents with progressively worsening low back pain which radiates down both of his legs possibly due to a disc herniation or lumbar stenosis. Thus, I will send him for an MRI of his lumbar spine for further evaluation. I will see him back once the MRI is completed to discuss the findings and treatment options. The patient also has intermittent discomfort along the lateral aspects of both of his hips most likely due to early degenerative joint disease as well as possible greater trochanteric bursitis. We will hold off on a cortisone injection for now. Feel free to call me at any time should questions regarding his orthopedic management arise. Thank you very much for asking me to see this very friendly gentleman. I spent 22 minutes in reviewing the patient's records and imaging studies, seeing the patient and documenting in the medical record. Orders: Orders MR lumbar spine wo con Today M54.50 - Low back pain, unspecified, M79.606 - Pain in leg, unspecified XR knee LT 3V Today M25.562 - Pain in left knee Coding Level of Care Code New Pt Level 2 (33257) Diagnoses Low back pain radiating down leg M54.50; M79.606
== END 2023-01-15 12:19 | disposition home or self-care (01) ==
PROVIDERS: PCP Internal Medicine; Visit Provider Orthopaedic Surgery
DX: M54.50 Low back pain, unspecified (principal); M79.606 Pain in leg, unspecified
CPT/HCPCS: 99202

== ENCOUNTER 2023-01-15 17:20 | Outpatient (REF) | payer OTHER, SELFPAY | END 2023-01-15 17:21 | disposition home or self-care (01) | LOC: HO.HOSX 17:20 | PROVIDERS: Visit Provider Orthopaedic Surgery | DX: M54.50 Low back pain, unspecified (principal); M79.606 Pain in leg, unspecified | CPT/HCPCS: 99202 ==

== ENCOUNTER 2023-01-26 04:32 | Emergency (ER) | payer OTHER, SELFPAY ==
[2023-01-26 04:40] VITALS: BP 162/94; PULSE 60; PULSE 90; RESP 18; TEMP 37; O2SAT 96; O2SAT 98; BMI 29.4
--- NOTE | 2023-01-26 04:44 | ED.GENADULT ---
HPI - General Adult General Chief complaint: General Medical Stated complaint: back and neck pain Time Seen by Provider: 01/26/23 04:36 Source: patient and old records reviewed Mode of arrival: EMS Limitations: no limitations History of Present Illness HPI narrative: 57 yo male with hx of arthritis, thrombocytopenia, schizophrenia, BPH, obesity, anxiet, GERD, HTN, DM, JUANITA, HTN, HLD, hypothyroidism here with c/o chronic neck pain and upper back pain - hx of same in past. States he recently moved into a new place and isn't sleeping well as it is too loud. His pain is on R side of neck hurts to move and touch. He has no rash, no numbness, weakness no loss of control of bowel or bladder and no weakness in UE. He states he wants a shot to feel better. he is very animated and talking but conversing and calm. He states his doctor doesn't help him much. MD complaint: neck and back pain Onset (ago): month(s) Location: neck and back Radiation: non-radiation Severity: moderate Quality: aching Pain Consistency: constant Relieving factors: none Exacerbating factors: movement Associated symptoms: denies other symptoms Treatments prior to arrival: none Related Data Home Medications Medication Instructions Recorded Confirmed blood sugar diagnostic #10 ea 03/15/20 01/15/23 lancets 28 gauge #100 ea 03/15/20 01/15/23 cholecalciferol (vitamin D3) 25 1 tab PO DAILY 02/26/22 01/15/23 mcg (1,000 unit) tablet (Vitamin D3) perphenazine 8 mg tablet 8 mg PO TID 02/26/22 01/15/23 atorvastatin 10 mg tablet 10 mg PO BEDTIME 04/29/22 01/15/23 bismuth subsalicylate 525 mg/15 mL 525 mg PO DAILY PRN INDEGESTION 04/29/22 01/15/23 oral suspension perphenazine 4 mg tablet 1 tab PO BID 04/29/22 01/15/23 Previous Rx's Medication Instructions Recorded pen needle, diabetic 31 gauge x #1,200 ea 03/12/21 5/16 lactulose 10 gram/15 mL oral 15 ml PO BEDTIME PRN constipation 05/15/21 solution #237 mL QUAD CANE #1 ea 07/31/21 pen needle, diabetic 33 gauge x #100 ea 01/21/22/ (Comfort EZ Pen [place]) ibuprofen 600 mg tablet 600 mg PO TID PRN for pain #90 tabs 04/19/22 nicotine 21 mg/24 hr daily 21 mg transdermal DAILY 28 days 05/09/22 transdermal patch #28 ea trazodone 50 mg tablet 150 mg (3 x 50 mg) PO BEDTIME 30 05/09/22 days #90 tabs multivitamin 1 tab PO DAILY #90 tabs 05/26/22 levothyroxine 50 mcg tablet 50 mcg PO QAM #90 tabs 06/25/22 insulin glargine 100 unit/mL (3 48 unit (0.48 mL) subcut DAILY #15 08/12/22 mL) subcutaneous pen (Lantus mL Solostar U-100 Insulin) famotidine 20 mg tablet 40 mg (2 x 20 mg) PO BID 30 days 09/18/22 #120 tabs desmopressin 0.1 mg tablet 0.2 mg (2 x 0.1 mg) PO BEDTIME #90 09/26/22 tabs lidocaine 5 % topical patch 1 patch topical DAILY PRN pain #30 10/08/22 (Lidoderm) ea lisinopril 5 mg tablet 5 mg PO DAILY #90 tabs 10/25/22 semaglutide 0.25 mg or 0.5 mg (2 0.5 mg (0.4 mL) subcut QWEEK #1.5 11/17/22 mg/1.5 mL) subcutaneous pen mL injector metoprolol tartrate 50 mg tablet 50 mg PO BID #180 tabs 11/18/22 tizanidine 4 mg tablet 4 mg PO BEDTIME for low back pain 11/19/22 #30 tabs aspirin 81 mg chewable tablet 1 tab PO QAM 90 days #90 tabs 11/21/22 acetaminophen 500 mg tablet 500 mg PO Q6H PRN fever or pain 30 01/01/23 (Tylenol Extra Strength) days #120 tabs docusate sodium 100 mg capsule 200 mg (2 x 100 mg) PO BID 30 days 01/01/23 #120 caps magnesium oxide 400 mg PO DAILY 30 days #30 tabs 01/09/23 omeprazole 20 mg capsule,delayed 20 mg PO DAILY #90 caps 01/12/23 release Allergies Allergy/AdvReac Type Severity Reaction Status Date / Time clozapine [From Anal] Allergy Mild ringing in Verified 01/26/23 04:40 ears, pain, leukopenia trifluoperazine Allergy Tongue Verified 01/26/23 04:40 [From Stelazine] Swelling Review of Systems Review of Systems: Constitutional : No Weight loss, No Fever, No Chills, ENT/Mouth : No Hearing loss, No Ear Pain, No Nasal Congestion, No Sinus Pain, No Hoarseness, No sore throat, No Rhinorrhea, No Swallowing Difficulty Cardiovascular : No Chest Pain, No SOB Respiratory : No Cough, No Dyspnea Gastrointestinal : No Nausea, No Vomiting, No Diarrhea, No abdominal Pain, No Hematochezia, No Melena Genitourinary : No Dysuria, No Urinary Frequency, No Hematuria, No Urinary Incontinence, Musculoskeletal : positive back pain, pos neck pain Skin : No Skin Lesions, No rash Neuro : No Weakness, No Numbness, No Paresthesias, no loss of bowel or bladder incontinence, no saddle anesthesia All other systems reviewed and are negative PMFSH Past Medical History Attestation statement: The following information was validated with the patient. Source: old records reviewed Medical History Facet arthritis of lumbar region Thrombocytopenia Hypomagnesemia Obesity (BMI 30-39.9) On beta evaristo at home Lung nodule Screening for STD (sexually transmitted disease) Obesity (BMI 30-39.9) Smoker Schizophrenia Nocturnal enuresis Anxiety Midline low back pain Acquired hypothyroidism GERD without esophagitis Constipation Pure hypercholesterolemia Benign essential hypertension Diabetes mellitus Obstructive sleep apnea Dyspnea Obesity (BMI 35.0-39.9 without comorbidity) Nicotine dependence, cigarettes, uncomplicated Schizoaffective disorder Insulin dependent diabetes mellitus Hypothyroidism Hypertension, essential Hyperlipidemia Surgical History H/O colonoscopy (~10/12/20) Hx of facial fracture repair History of left inguinal hernia repair Family History Family History Father CVD (cardiovascular disease) Mother CVD (cardiovascular disease) Diabetes Sister Colon polyps Social History Social History Household Members: Other Household Members Other:: lives in a supported apartment problem Housing: Apartment Housing Other:: lives in a supported apartment problem Do you presently have visiting nurse or other home services: No Alcohol intake: former Patient Tobacco Use Status: Current someday Tobacco user Tobacco use type: Cigarette and Cigar Cigarette Packs Per Day: 0.75 Cigarettes Per Day: 40 Years Smoked: 30 e-Cigarette/Vaping Use: Never Used Second Hand Smoke Exposure: No service: No Current occupational status: disabled Sexual orientation: Straight/Heterosexual Cognitive needs: No Hearing needs: No Vision needs: No Physical Exam ED Vital Signs: Vital Signs - 24 hr 01/26/23 04:40 Temperature 98.6 F Pulse Rate 90 Respiratory Rate 18 Blood Pressure 162/94 H Pulse Oximetry 98 Oxygen Delivery Method Room Air BMI result Body Mass Index 29.4 Appearance: Alert. Oriented X3. No acute distress. Eyes: Pupils equal, round and reactive to light. ENT: Pharynx normal. Neck: no midline ttp, R trapezius ttp reproduces pain CVS: Normal heart rate and rhythm. Pulses normal. Respiratory: No respiratory distress. Breath sounds normal. Abdomen: Soft and nontender. back: atraumatic no rash, no midline ttp Skin: Skin warm and dry. Normal skin color. Normal skin turgor. Extremities: No lower extremity edema. No calf ttp Neuro: Oriented X 3. No motor deficit. No sensory deficit. no pain with either leg lifts L5 5/5 bilaterally SILT inner thigh Course Course Course Narrative: patient has been swearing at the nurse - give me a fucking shot I explained I could not give him toradol with his NSAID use and low plt history he has been intermittently agitated but not in acute crisis at this time he can be DC Medications Administered Discontinued Medications Generic Name Dose Route Start Last Admin Trade Name Aleksandra PRN Reason Stop Dose Admin Cyclobenzaprine HCl 10 mg 01/26/23 04:43 01/26/23 04:50 Cyclobenzaprine Hcl 10 Mg Tablet PO 01/26/23 04:44 10 mg ONCE ONE Administration Lidocaine 1 patch 01/26/23 04:42 01/26/23 04:52 Lidocaine 4 % Patch Adh..Patch TRANSDERMA 01/26/23 04:43 1 patch ONCE ONE Administration Protocol Medical Decision Making Medical Decision Making MDM Narrative: 57 yo male with hx of arthritis, thrombocytopenia, schizophrenia, BPH, obesity, anxiet, GERD, HTN, DM, JUANITA, HTN, HLD, hypothyroidism here with c/o reproduceable neck and back pain without b/b incontinence saddle anesthesia fevers rashes he is NV intact in UE. He is not toxic appearing and touching his muscle reproduce the pain. He has no other mass seen and no recent trauma to suggest dissection. At this time given his hx of low platelets I am going to hold toradol he will be given flexeril and lidocaine patch. I suspect MSK strain I do not suspect nerve compression or infection. He can be DC home. He might also be decompensating but he has no SI/HI and this could be triggered by him living in a new apartment. Differential Diagnosis Differential Diagnoses: The differential diagnosis associated with the presentation includes strain, sprain, anxiety, Admission/Observation Consideration of admission/observation: Escalation of care including admission/observation considered Lab Data MDM Lab Attestation statement: I reviewed the patient's lab results. low platelets and normal Cr on most recent visit Independent Historian Clinical information obtained from an independent historian. History obtained from or confirmed by: EMS External Record Review External record reviewed: Inpatient record Tests considered The following testing was considered but not selected: basic labs but denies other cramps in muscles or recent n/v/d Prescription Management I considered prescription management with: Other Social Determinants Patient?s care significantly limited by Social Determinants of Health including: Problems related to primary support group Discharge Plan Discharge Clinical Impression: Neck pain Back pain Qualifiers: Back pain location: thoracic back pain Chronicity: chronic Back pain laterality: bilateral Qualified Code(s): M54.6 - Pain in thoracic spine Patient Disposition: Home, Self-Care Instructions: Chronic Back Pain (DC), Chronic Neck Pain (DC) Additional Instructions: return for numbness, weakness, loss of control of bowel or bladder. you should talk to your doctor about pain management referral if this continues. Prescriptions: No Action (DME) pen needle, diabetic 31 gauge x 5/16 needle See Rx Instructions .ROUTE .MEDSUPPLY Qty: 1200 0RF Rx Instructions: Use 4 times daily lactulose 10 gram/15 mL solution 15 ml PO BEDTIME PRN (Reason: constipation) Qty: 237 2RF (DME) Comfort EZ Pen [place] 33 gauge x 1/4 needle See Rx Instructions .ROUTE .MEDSUPPLY Qty: 100 12RF Rx Instructions: As directed ibuprofen 600 mg tablet 600 mg PO TID PRN (Reason: for pain) Qty: 90 0RF multivitamin Tablet 1 tab PO DAILY Qty: 90 2RF levothyroxine 50 mcg tablet 50 mcg PO QAM Qty: 90 3RF insulin glargine [Lantus Solostar U-100 Insulin] 100 unit/mL (3 mL) insulin pen 48 unit subcut DAILY Qty: 15 5RF famotidine 20 mg tablet 40 mg PO BID 30 Days Qty: 120 5RF desmopressin 0.1 mg tablet 0.2 mg PO BEDTIME Qty: 90 2RF lisinopril 5 mg tablet 5 mg PO DAILY Qty: 90 0RF Ozempic 0.25 mg or 0.5 mg(2 mg/1.5 mL) pen injector 0.5 mg subcut QWEEK Qty: 1.5 2RF metoprolol tartrate 50 mg tablet 50 mg PO BID Qty: 180 0RF tizanidine 4 mg tablet 4 mg PO BEDTIME Qty: 30 1RF aspirin 81 mg tablet,chewable 1 tab PO QAM 90 Days Qty: 90 3RF docusate sodium 100 mg capsule 200 mg PO BID 30 Days Qty: 120 0RF magnesium oxide 400 mg magnesium tablet 400 mg PO DAILY 30 Days Qty: 30 3RF omeprazole 20 mg capsule,delayed release(DR/EC) 20 mg PO DAILY Qty: 90 3RF perphenazine 4 mg tablet 1 tab PO BID bismuth subsalicylate 525 mg/15 mL Suspension 525 mg PO DAILY PRN (Reason: INDEGESTION) Rx Instructions: do not exceed 8 doses in a 24 hour period atorvastatin 10 mg tablet 10 mg PO BEDTIME nicotine 21 mg/24 hr Patch 24 Hour 21 mg transdermal DAILY 28 Days Qty: 28 0RF trazodone 50 mg Tablet 150 mg PO BEDTIME 30 Days Qty: 90 0RF perphenazine 8 mg tablet 8 mg PO TID cholecalciferol (vitamin D3) [Vitamin D3] 25 mcg (1,000 unit) tablet 1 tab PO DAILY (DME) QUAD CANE See Rx Instructions .Route .MEDSUPPLY Qty: 1 0RF Rx Instructions: As directed lidocaine [Lidoderm] 5 % adhesive patch,medicated 1 patch topical DAILY MDD remove after 12 hours PRN (Reason: pain) Qty: 30 3RF Rx Instructions: leave on most painful area for up to 12 hrs acetaminophen [Tylenol Extra Strength] 500 mg tablet 500 mg PO Q6H PRN (Reason: fever or pain) 30 Days Qty: 120 3RF Rx Instructions: maximum of 4 tablets per day (DME) blood sugar diagnostic Strip See Rx Instructions Not Applicable .MEDSUPPLY Qty: 10 Rx Instructions: As directed (DME) lancets 28 gauge misc See Rx Instructions topical .MEDSUPPLY Qty: 100 Rx Instructions: As directed
[2023-01-26] MEDS: Cyclobenzaprine HCl 10 MG TABLET PO (04:50)
[2023-01-26] MEDS: Lidocaine 4 % Patch ADH..PATCH 1 PATCH TRANSDERMA (04:52)
[2023-01-26 06:00] VITALS: BP 154/86; PULSE 88; RESP 18; O2SAT 99
--- NOTE | 2023-01-26 07:16 | PC.NURSE ---
in waiting room was provided a breakfast, patient is awaiting hospital van transport
== END 2023-01-26 07:16 | disposition home or self-care (01) ==
PROVIDERS: Emergency Provider Emergency Medicine; PCP Internal Medicine
DX: M54.2 Cervicalgia (principal); M54.6 Pain in thoracic spine; E11.9 Type 2 diabetes mellitus without complications; I10 Essential (primary) hypertension; E78.00 Pure hypercholesterolemia, unspecified; F17.210 Nicotine dependence, cigarettes, uncomplicated; Z79.4 Long term (current) use of insulin; Z79.899 Other long term (current) drug therapy
CPT/HCPCS: 99283; 99284

== ENCOUNTER 2023-02-04 10:11 | Outpatient (REF) | payer OTHER, SELFPAY ==
[2023-02-04 10:38] LABS: MANUAL DIFF FLAG NO
[2023-02-04 11:41] LABS: Appearance Urine Clear; Color Urine Yellow; Glucose Urine UA Negative (Negative); Leukocyte Esterase Urine Negative (Negative); Nitrite Urine Negative (Negative); PH 5.5 (5.0-9.0); Specific Gravity - Urine 1.015 (1.005-1.025); Urine Blood Negative (Negative); Urine Ketones Negative (Negative); Urine Protein Negative (Neg-Trace)
[2023-02-04 11:44] LABS: Basophils Percent Auto 0.9 % (0-2); Eosinophils Absolute Auto 0.1 X10*3/uL (0.0-0.4); Eosinophils Percent Auto 3.2 % (0-4); Hematocrit 34.2 % (42.0-52.0); Hemoglobin 11.9 g/dl (14.0-18.0); Imm Gran Abs Auto 0.01 X10*3/uL (0.00-0.03); Imm Gran Pct Auto 0.3 % (0.0-0.4); Lymphocytes Percent Auto 30.6 % (20-40); Mean Corpuscular HGB Conc 34.8 g/dl (31.0-36.0); Mean Corpuscular Hemoglobin 31.9 pg (27.0-33.0); Mean Corpuscular Volume 91.7 fL (80.0-98.0); Mean Platelet Volume 10.3 fL (9.4-12.4); Monocytes Absolute Auto 0.3 X10*3/uL (0.1-1.2); Monocytes Percent Auto 8.2 % (2-11); Neutrophils Absolute Auto 1.8 x10*3/uL (2.0-8.3); Neutrophils Percent Auto 56.8 % (45-73); Platelet Count 71 X10*3/uL (160-400); Red Blood Count 3.73 X10*6/uL (4.60-5.80); Red Cell Distribution Width 15.9 % (11.0-16.0); White Blood Count 3.2 X10*3/uL (4.8-10.8)
[2023-02-04 11:48] LABS: Estimated Average Glucose 103 mg/dL; Hemoglobin A1c % 5.2 % (<6.0)
[2023-02-04 12:25] LABS: Creatinine Urine 108.43 mg/dL; Microalbumin Urine < 5.0 mg/L
[2023-02-04 12:28] LABS: Alanine Aminotransferase 17 U/L (0-40); Albumin Level 3.8 g/dL (3.5-5.0); Alkaline Phosphatase 79 U/L (39-117); Anion Gap 13 (12-20); Aspartate Amino Transferase 17 U/L (5-37); Bilirubin Total 0.9 mg/dL (0.0-1.0); Blood Urea Nitrogen 13 mg/dL (9-16); Calcium 9.7 mg/dL (8.4-10.2); Carbon Dioxide 23 mmol/L (22-29); Chloride 103 mmol/L (96-108); Cholesterol 101 mg/dL (<200); Estimated Glomerular Filt Rate > 60; Glucose Fasting 272 mg/dL (60-99); HDL Cholesterol 29 mg/dL (>40); LDL Cholesterol Calculated 56 mg/dL (<100); Potassium 4.3 mmol/L (3.3-5.1); Sodium 135 mmol/L (135-145); TSH reflex Free T4 0.84 uIU/mL (0.32-4.0); Total Protein 6.3 g/dL (6.5-8.0); Triglycerides 81 mg/dL (<150); Vitamin D 25-OH Total 37.3 ng/mL (>30)
[2023-02-04 12:43] LABS: Folate 15.7 ng/mL (> or = 4.0); Prostate Specific Antigen Scr 0.49 ng/mL (<0.05-4.0); Vitamin B12 615 pg/mL (200-900)
== END 2023-02-04 10:12 | disposition home or self-care (01) ==
LOC: HO.LAB 10:11
PROVIDERS: PCP Internal Medicine; Visit Provider Internal Medicine
DX: Z00.00 Encounter for general adult medical examination without abnormal findings (principal); I10 Essential (primary) hypertension; C64.1 Malignant neoplasm of right kidney, except renal pelvis; D69.6 Thrombocytopenia, unspecified; E78.00 Pure hypercholesterolemia, unspecified; E11.9 Type 2 diabetes mellitus without complications; R30.0 Dysuria; E53.8 Deficiency of other specified B group vitamins; E55.9 Vitamin D deficiency, unspecified; Z12.5 Encounter for screening for malignant neoplasm of prostate
CPT/HCPCS: 36415; 80053; 80061; 81003; 82043; 82306; 82570; 82607; 82746; 83036; 84153; 84443; 85025

== ENCOUNTER 2023-02-11 13:07 | Outpatient (AMB) | payer OTHER, SELFPAY ==
--- NOTE | 2023-02-11 13:09 | A.OFFPC_ITS ---
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 Accompanied by: Self / Same As Patient Allergies clozapine [From Clozaril] Allergy (Mild, Verified 02/11/23 13:30) ringing in ears, pain, leukopenia trifluoperazine [From Stelazine] Allergy (Verified 02/11/23 13:30) Tongue Swelling Medication List - Last Reconciled 02/11/23 by Mando Turpin MD acetaminophen (Tylenol Extra Strength) 500 mg PO Q6H PRN 30 days aspirin 1 tab PO QAM 90 days atorvastatin 10 mg PO BEDTIME bismuth subsalicylate 525 mg PO DAILY PRN blood sugar diagnostic As directed cholecalciferol (vitamin D3) (Vitamin D3) 1 tab PO DAILY desmopressin 0.2 mg (2 x 0.1 mg) PO BEDTIME docusate sodium 200 mg (2 x 100 mg) PO BID 30 days famotidine 40 mg (2 x 20 mg) PO BID 30 days Grab bar As directed ibuprofen 600 mg PO TID PRN insulin glargine (Lantus Solostar U-100 Insulin) 48 units (0.48 mL) subcut DAILY lactulose 15 mL PO BEDTIME PRN lancets As directed levothyroxine 50 mcg PO QAM lidocaine 5% (Lidoderm) 1 patch topical DAILY PRN MDD remove after 12 hours lisinopril 5 mg PO DAILY magnesium oxide 400 mg PO DAILY 30 days metoprolol tartrate 50 mg PO BID multivitamin 1 tab PO DAILY nicotine 21 mg transdermal DAILY 28 days omeprazole 20 mg PO DAILY pen needle, diabetic Use 4 times daily pen needle, diabetic (Comfort EZ Pen [place]) As directed perphenazine 8 mg PO TID perphenazine 1 tab PO BID [QUAD CANE As directed] semaglutide 0.5 mg (0.374 mL) subcut QWEEK tizanidine 4 mg PO BEDTIME trazodone 150 mg (3 x 50 mg) PO BEDTIME 30 days Tobacco use date assessed: 02/11/23 Dental Screening Dental Screen Date: 02/11/23 Did you have a dental visit in the last 12 months?: No Did you have a dental problem in the last 6 months where you did not have access to dental care?: No Was dental information given to patient?: No HPI 3mth f/u HPI Details Patient comes in today for his follow up visit States that he feels okay He denies any headaches or dizziness Denies any exertional chest pains, no increased SOB No nausea/vomiting, no abdominal pain No change in bowel habits noted Needs his Rx for Lactulose refilled - states that he takes this only if he has not had a bowel movement in more than 2 to 3 days despite his usual stool softener Would also like to get an Rx for a regular cane; states that he has trouble using his current quad cane as he keeps tripping on the legs of the cane Had his follow up labs done last week - to discuss his results [facility] Medical History Facet arthritis of lumbar region Thrombocytopenia Hypomagnesemia Obesity (BMI 30-39.9) On beta evaristo at home Lung nodule Screening for STD (sexually transmitted disease) Obesity (BMI 30-39.9) Smoker Schizophrenia Nocturnal enuresis Anxiety Midline low back pain Acquired hypothyroidism GERD without esophagitis Constipation Pure hypercholesterolemia Benign essential hypertension Diabetes mellitus Obstructive sleep apnea Dyspnea Obesity (BMI 35.0-39.9 without comorbidity) Nicotine dependence, cigarettes, uncomplicated Schizoaffective disorder Insulin dependent diabetes mellitus Hypothyroidism Hypertension, essential Hyperlipidemia Surgical History H/O colonoscopy (~10/12/20) Hx of facial fracture repair History of left inguinal hernia repair Family History Father CVD (cardiovascular disease) Mother CVD (cardiovascular disease) Diabetes Sister Colon polyps Social History Household Members: Other Household Members Other:: lives in a supported apartment problem Housing: Apartment Housing Other:: lives in a supported apartment problem Do you presently have visiting nurse or other home services: No Alcohol intake: former Patient Tobacco Use Status: Current someday Tobacco user Tobacco use type: Cigarette and Cigar Cigarette Packs Per Day: 0.75 Cigarettes Per Day: 40 Years Smoked: 30 e-Cigarette/Vaping Use: Never Used Second Hand Smoke Exposure: No service: No Current occupational status: disabled Sexual orientation: Straight/Heterosexual Cognitive needs: No Hearing needs: No Vision needs: No Questionnaire PHQ-9 Over the last 2 weeks, how often have you been bothered by any of the following problems? 1. Little interest or pleasure in doing things: not at all 2. Feeling down, depressed, or hopeless: not at all 3. Trouble falling or staying asleep, or sleeping too much: not at all 4. Feeling tired or having little energy: not at all 5. Poor appetite or overeating: not at all 6. Feeling bad about yourself - or that you are a failure or have let yourself or your family down: not at all 7. Trouble concentrating on things, such as reading the newspaper or watching television: not at all 8. Moving or speaking so slowly that other people could have noticed. Or the opposite - being so fidgety or restless that you have been moving around a lot more than usual: not at all 9. Thoughts that you would be better off or of hurting yourself in some way: not at all Total score: 0 Depression Screening Interpretation: Negative (is on Rx for depression/mood disorder) Depression Screening Done: Yes 48598 - PHQ-9 Billing: Yes Source: Developed by Drs. Jaleel Shaffer, Sindy Vance, Ankit Yang and colleagues, with an educational riana from [employer] Thrive Questionnaire Date Thrive assessed: 02/11/23 I am a: Patient What is your living situation today?: I have a steady place to live Within the past 12 months, did the food you bought not last and you didn't have the money to get more?: Never true Within the past 12 months, did you worry whether your food would run out before you got money to buy more?: Never true Do you have trouble paying for medicines?: No Do you have trouble getting transportation to medical appointments?: No Do you have trouble paying your heating and electricity bill?: No Do you have trouble taking care of your child, family member or friend?: No Do you have trouble with day-to-day activities such as bathing, preparing meals, shopping, managing finances, etc.?: No Are you currently unemployed and looking for a job?: No Are you interested in more education?: No Please select the resources that you would like help with: None Currently or been in a relationship where the following occur: no concerns reported AUDIT C Alcohol Use Questionnaire (AUDIT-C) 1. How often do you have a drink containing alcohol?: Never 3. How often do you have six or more drinks on one occasion?: Never Total Score: 0 Score Reviewed/Action Taken: Yes MARCY-7 AMB Questionnaire MARCY-7 Date MARCY - 7 assessed: 02/11/23 Feeling nervous, anxious, or on edge: 1 = Several days Not being able to stop or control worryin = Several days Worrying too much about different things: 1 = Several days Trouble relaxin = Not at all Being so restless that it is hard to sit still: 1 = Several days Becoming easily annoyed or irritable: 0 = Not at all Feeling afraid as if something awful might happen: 2 = More than half the days Total MARCY-7 score (0-4 normal; 5-9 mild; 10-14 moderate; 15-21 severe): 6 Source: Developed by Drs. Jaleel Shaffer, Sindy Vance, Ankit Yang and colleagues, with an educational riana from [employer]. Review of Systems Const Denies chills, Denies fatigue, Denies fever(s) and Denies headache(s) ENT Denies dysphagia, Denies dizziness, Denies otalgia, Denies headache(s), Denies neck pain, Denies odynophagia and Denies sore throat Card Denies chest pain, Denies rapid heart rate, Denies irregular heart rhythm, Denies palpitations and Denies dyspnea Resp Denies cough, Denies dyspnea and Denies wheezing GI Denies abdominal pain, Denies constipation, Denies dysphagia, Denies heartburn, Denies diarrhea, Denies nausea, Denies odynophagia and Denies vomiting Denies difficulty urinating, Denies dysuria and Denies urinary frequency Musc Reports back pain (on and off; worse at night), Reports arthralgias (over both hips; on and off in the hands and knees) and Denies neck pain Skin/Breast Denies rash Neuro Denies dizziness, Denies headache(s) and Denies paresthesias Endo Denies fatigue and Denies palpitations Aller/Immun Denies wheezing Physical exam (Primary Care) Vital Signs: Last Vital Signs Pulse 82 02/11/23 13:10 BP 124/70 02/11/23 13:10 Pulse Ox 97 02/11/23 13:10 Oxygen Delivery Method Room Air 02/11/23 13:10 BMI result Body Mass Index 30.3 Tobacco/Smoking Status: Tobacco use Status Tobacco use date assessed 02/11/23 02/11/23 13:13 Patient Tobacco Use Status Current someday Tobacco 02/11/23 13:09 Tobacco use type Cigarette,Cigar 02/11/23 13:09 e-Cigarette/Vaping Use Never Used 02/11/23 13:09 PHQ-9: PHQ-9 Score PHQ-9: Total score 0 02/11/23 13:20 Depression Screening Interpretation: Negative (is on Rx for depression/mood disorder) Thrive Assessment: Date of Thrive Assessment Date Thrive assessed 02/11/23 02/11/23 13:13 Currently or been in a relationship where the following occur: no concerns reported Const General: no acute distress and alert HENMT Ears: TM's normal bilaterally and EAC's normal Throat: Yes posterior oropharynx normal and Yes tonsils normal (no TP congestion) Neck Neck: Yes no lymphadenopathy and Yes supple Thyroid: Thyroid normal Resp Auscultation: clear to auscultation bilaterally, no rales and no wheezes Cardio Rate: regular rate Rhythm: regular rhythm Heart sounds: no murmurs GI Palpation (GI): Soft to palpation and nontender Auscultation: normal bowel sounds General: Yes no CVA tenderness Back/Spine/Pelvis Back: no CVA tenderness Thoracic/Lumbar Spine: lumbar spinal tenderness Skin Rashes: no rashes Extrem General: Yes no clubbing, cyanosis or edema Right lower extremity: hip/thigh Details: tenderness Location: of the hip Left lower extremity: hip/thigh Details: tenderness Location: of the hip Results Reviewed Results Reviewed: Laboratory Tests 02/04/23 02/04/23 02/04/23 10:35 10:36 10:36 WBC 3.2 L Hgb 11.9 L Hct 34.2 L Plt Count 71 L Sodium 135 Potassium 4.3 Creatinine 0.84 Estimated GFR > 60 Fasting Glucose 272 H Hemoglobin A1c % 5.2 Calcium 9.7 AST 17 ALT 17 Triglycerides 81 Cholesterol 101 LDL Cholesterol, Calc 56 HDL Cholesterol 29 L Vitamin B12 615 25-OH Vitamin D Total 37.3 TSH 0.84 Ur Specific [place] 1.015 Urine Protein Negative Urine Glucose (UA) Negative Urine Blood Negative Assessment and Plan Assessment & Plan (1) Diabetes mellitus: Code(s): E11.9 - Type 2 diabetes mellitus without complications Qualifiers: Diabetes mellitus type: type 2 Diabetes mellitus buttermaker continuous churn insulin use: with buttermaker continuous churn use Diabetes mellitus complication status: without complication Qualified Code(s): E11.9 - Type 2 diabetes mellitus without complications; Z79.4 - skilled nursing (current) use of insulin Plan: HgbA1c was at 5.2% on his labs done last week (in-office HgbA1c was at 5.5% a few months ago) -? goal is <? 7.0% Reinforced diabetic diet Continue Ozempic 0.5 mg SQ once a week, Lantus 55 units once a day and Novolog 3 times a day with meals per sliding scale Follow up with [facility] as scheduled - may need to at least have his Lantus dose cut back if his HgbA1c continues to stay low (2) Pure hypercholesterolemia: Code(s): E78.00 - Pure hypercholesterolemia, unspecified Plan: Results of his labs done last week reviewed and discussed with patient Reinforced low cholesterol diet Continue Atorvastatin 10 mg QD Will recheck his labs and fasting lipids in 3 months for follow up (3) Benign essential hypertension: Code(s): I10 - Essential (primary) hypertension Plan: Reinforced low-sodium diet -? goal is systolic BP of 120 mm or less Continue Lisinopril 5 mg QD and Metoprolol 50 mg BID (4) Renal cell carcinoma of right kidney: Comment: 06/25 1.6 cm lesion right kidney Code(s): C64.1 - Malignant neoplasm of right kidney, except renal pelvis Plan: Repeat MRI in October 2021 revealed STABLE heterogeneously enhancing lesion at the posterior upper pole of the right kidney under 2 cm; no adenopathy noted Has been recommended by urology to continue observation for now although reminded patient that he may still require cryotherapy at some point if his condition changes Follow up with urology as scheduled for continuing monitoring and management (5) Thrombocytopenia: Code(s): D69.6 - Thrombocytopenia, unspecified Plan: Unclear etiology; RCC is rarely associated with thrombocytopenia Patient reports no increased bleeding lately Will continue to monitor his platelet count regularly for now Will consider referring him to hematology for further evaluation if this progresses (6) Acquired hypothyroidism: Code(s): E03.9 - Hypothyroidism, unspecified Plan: Continue Levothyroxine 50 mcg QD Reassured that his TFTs were normal on his labs done last week; will continue to monitor his TFTs regularly (7) Obstructive sleep apnea: Comment: Clinically I suspect that he may have JUANITA , but he smart enough to sense about what I am talking about and says he does not have JUANITA . Also says , he would not be able to use CPAP mask even if he has JUANITA , So no sense in doing a Sleep study . Code(s): G47.33 - Obstructive sleep apnea (adult) (pediatric) Plan: Follow up with pulmonary as scheduled Patient continues to feel that he does NOT have JUANITA and does not wish to get this checked out further (8) Hypomagnesemia: Code(s): E83.42 - Hypomagnesemia Plan: Corrected on his recent labs - continue Magnesium Oxide 400 mg QD (9) Constipation: Code(s): K59.00 - Constipation, unspecified Qualifiers: Constipation type: unspecified constipation type Qualified Code(s): K59.00 - Constipation, unspecified Plan: Encouraged increased oral fluids and dietary fiber Continue Docusate 200 mg BID PRN; may take Lactulose 15 ml Q HS PRN if he has no bowel movement in 2 to 3 days despite his routine stool softeners (10) Facet arthritis of lumbar region: Code(s): M47.816 - Spondylosis without myelopathy or radiculopathy, lumbar region Plan: X-rays of the lumbar spine done back in 2016 revealed (+) multilevel facet arthritis Repeat lumbar spine x-rays done in September 2022 revealed the same - has lower thoracic and lumbar spine spondylosis and arthritis Reinforced activity and weight-lifting restrictions to avoid aggravating his low back pain; advised that PT may be helpful if his low back pain persists or gets worse Continue Tizanidine 4 mg Q HS PRN and Lidocaine patches QD PRN (11) Osteoarthritis of hips, bilateral: Code(s): M16.0 - Bilateral primary osteoarthritis of hip Qualifiers: Osteoarthritis type: primary Qualified Code(s): M16.0 - Bilateral primary osteoarthritis of hip Plan: X-rays of both hips done in My 2022 revealed (+) moderate to severe bilateral hip osteoarthritis He was referred to orthopedics for further evaluation of his hip issues and was scheduled to be seen last month on 11/14/22 but patient cancelled his appt as he did not want to go then Have advised him to contact orthopedics VERNA to reschedule his appt and advised that even just gettinf cortisone injections, if appropriate, can help him a lot with his hip pain Continue Acetaminophen 500 mg Q 6 hours PRN for pain (12) Anxiety: Code(s): F41.9 - Anxiety disorder, unspecified Plan: Continue Clonazepam 0.5 mg twice a day as needed (13) Schizophrenia: Code(s): F20.9 - Schizophrenia, unspecified Qualifiers: Schizophrenia type: unspecified Qualified Code(s): F20.9 - Schizophrenia, unspecified Plan: Continue Perphenazine 8 mg 1 tablet 3 times a day (at 8 am, 2 pm and at bedtime) and Perphenazine 4 mg tablet 1 tablet daily at 8 am and 2 mg tablet 1 tablet daily at 2 pm Is also on Trazodone at 200 mg Q HS Follow-up with Psychiatry as scheduled (14) Smoker: Comment: COUNSELED TO QUIT SMOKING. HOWEVER BECAUSE OF HIS MENTAL DISORDER, AND LIVING IN A RETIREMENT, HE IS NOT TO GOING TO CUT DOWN OR STOP SMOKING. Code(s): F17.200 - Nicotine dependence, unspecified, uncomplicated Plan: States that he has quit cigarettes and now just smokes cigars occasionally - counseled again on smoking cessation (applies to ALL tobacco products) (15) Obesity (BMI 30-39.9): Code(s): E66.9 - Obesity, unspecified Plan: Reinforced diet/exercise as tolerated/lose weight Plan Follow up in 3 months Orders: Orders Complete Blood Count Auto Diff 3 Months I10 - Essential (primary) hypertension Comprehensive [place]. Panel Fast 3 Months E78.00 - Pure hypercholesterolemia, unspecified Lipid Panel 3 Months E78.00 - Pure hypercholesterolemia, unspecified Hemoglobin A1c 3 Months E11.9 - Type 2 diabetes mellitus without complications Microalbumin, Random (w Creat) 3 Months E11.9 - Type 2 diabetes mellitus without complications UA CC w/rflx Micro + Cult 3 Months R30.0 - Dysuria Vitamin D 25-OH Total 3 Months E55.9 - Vitamin D deficiency, unspecified Medications: New [CANE (regular)] As directed 1 ea 0RF M16.0 - Bilateral primary osteoarthritis of hip, M54.50 - Low back pain, unspecified, M79.606 - Pain in leg, unspecified Changed From lactulose 15 mL PO BEDTIME PRN 237 mL 2RF constipation To lactulose Take only for severe constipation that is not relieved with routine stool softeners 15 mL PO BEDTIME PRN 237 mL 1RF severe constipation Coding Level of Care Code Est Pt Level 4 (72331) Diagnoses Type 2 diabetes mellitus without complication, with long-term current use of insulin E11.9; Z79.4 Diabetes mellitus type: type 2 Diabetes mellitus longterm insulin use: with buttermaker continuous churn use Diabetes mellitus complication status: without complication Pure hypercholesterolemia E78.00 Benign essential hypertension I10 Renal cell carcinoma of right kidney C64.1 Thrombocytopenia D69.6 Acquired hypothyroidism E03.9 Obstructive sleep apnea G47.33 Hypomagnesemia E83.42 Constipation, unspecified constipation type K59.00 Constipation type: unspecified constipation type Facet arthritis of lumbar region M47.816 Primary osteoarthritis of both hips M16.0 Osteoarthritis type: primary Anxiety F41.9 Schizophrenia, unspecified type F20.9 Schizophrenia type: unspecified Smoker F17.200 Obesity (BMI 30-39.9) E66.9
[2023-02-11 13:10] VITALS: BP 124/70; PULSE 82; O2SAT 97; BMI 30.3
== END 2023-02-11 13:43 | disposition home or self-care (01) ==
PROVIDERS: PCP Internal Medicine; Visit Provider Internal Medicine
DX: E11.9 Type 2 diabetes mellitus without complications (principal); Z79.4 Long term (current) use of insulin; C64.1 Malignant neoplasm of right kidney, except renal pelvis; D69.6 Thrombocytopenia, unspecified; F20.9 Schizophrenia, unspecified; E78.00 Pure hypercholesterolemia, unspecified; I10 Essential (primary) hypertension; E03.9 Hypothyroidism, unspecified; G47.33 Obstructive sleep apnea (adult) (pediatric); E83.42 Hypomagnesemia; K59.00 Constipation, unspecified; M47.816 Spondylosis without myelopathy or radiculopathy, lumbar region
CPT/HCPCS: 99214

== ENCOUNTER 2023-03-05 13:01 | Outpatient (REF) | payer OTHER, SELFPAY ==
--- NOTE | ~2023-03-05 | MR_ITS ---
EXAMINATION: MR LUMBAR SPINE WITHOUT CONTRAST CLINICAL INFORMATION: 57 year old with low back pain, worsening over time. COMPARISON: 04/30/2012 MRI. TECHNIQUE: MRI of the lumbar spine was obtained using routine sequences without contrast. FINDINGS: Coronal Alignment: Normal. Sagittal Alignment: There is a 2 mm of 5 grade 1 degenerative spondylolisthesis at L4-L5 which has developed since the previous exam without spondylolysis. Otherwise normal lumbar alignment. Lumbosacral Junction: Normal. There are 5 [id number] lumbar-type vertebral bodies. Vertebral Bodies: Stable vertebral body heights. No interval compression fractures. Disc Spaces and Endplates: The intervertebral disc space heights and signal are stable in appearance from the previous exam. There is anterior marginal spondylosis at L1-L2 progressed from previous study. Anterior marginal spondylosis at L2-L3 slightly progressed as well. Minor multilevel disc desiccation is similar to the previous study at L3-L4, L4-L5 and L5-S1 and has progressed at L1-L2 and L2-L3. Schmorl's node formation along the superior endplate of T12, stable in appearance. Disc desiccation at T11-T12 progressed from previous study. Spinal Canal: No abnormal developmental findings. Bone Marrow: Diffusely mildly heterogeneous bone marrow signal intensity seen throughout the osseous structures, similar to the previous study with benign lipid-rich hemangiomata in the L3 and L5 vertebral bodies, similar to the prior exam. Minor type II degenerative marrow signal changes have developed along the anterior endplates of T12-L1 since previous exam. No bone marrow edema. Conus Medullaris: Terminates at L1. Morphology and signal is normal. Intradural Nerve Roots: Within normal limits. L5-S1: Redemonstrated is a small, shallow broad-based left subarticular disc protrusion with annular fissuring, which contacts the left S1 nerve root sleeve, grossly similar in appearance to the previous exam without significant central spinal canal stenosis. Slight narrowing. The left subarticular zone is stable. [id number] bilateral facet arthropathy is slightly progressed from previous exam with minor narrowing of the left neural foramen, slightly more evident on current study without definite exiting neural impingement. L4-L5: Slight unroofing of the posterior disc margin noted on current exam consistent with development of mild grade 1 degenerative spondylolisthesis. Mild diffuse annular bulging is noted with mild posterolateral annular fissuring noted bilaterally, stable on the right and newly developed on the left. Slight flattening of the ventral dural sac is slightly more prominent on current exam. There is moderate bilateral facet arthropathy, left more than right, similar to the previous exam without significant spinal canal stenosis. There is [id number] left-sided and mild right-sided neural foraminal narrowing, grossly unchanged in appearance on the right and slightly progressed on the left with minimal encroachment on the exiting left L4 nerve root on current exam. L3-L4: Previously noted right-sided foraminal/extraforaminal disc protrusion with an annular fissure is again noted, which abuts the exiting right L3 nerve root, similar to the previous exam. There is minor underlying annular bulging, stable in appearance. There is moderate facet arthropathy and mild ligamentum flavum thickening, slightly progressed from previous study without significant canal stenosis. Minor foraminal narrowing is noted on the left and moderate on the right, stable in appearance. L2-L3: Small right inferior foraminal disc herniation noted on current study without neural impingement. Otherwise normal annular contour. Minor facet arthropathy noted bilaterally. No significant canal or neural foraminal stenosis. L1-L2: On current study, there is a small right paramedian disc herniation with minimal indentation of the right ventral thecal sac. There is also a small left subarticular disc herniation as well without neural impingement. No significant facet arthrosis, canal or foraminal stenosis. T12-L1: Small left paramedian disc herniation, stable in appearance with mild indentation of the left ventral thecal sac. No significant facet arthrosis, canal or foraminal stenosis. Paravertebral and Included Extraspinal Soft Tissues: The visualized paravertebral soft tissues and included retroperitoneal structures are unremarkable within the limitations of the exam. MR/MR lumbar spine wo con IMPRESSION: 1. Mild grade 1 degenerative spondylolisthesis at L4-L5 has developed since previous exam with stable bilateral facet arthropathy at this level, with stable [id number]-rozxlefs left-sided and mild right-sided neural foraminal stenosis with minimal encroachment on the exiting left L4 nerve root on current study. Diffuse annular bulging is noted at this level with bilateral annular fissuring as detailed above. 2. Multilevel discogenic degenerative changes and spondylosis as described above with multilevel disc herniations, most of which are stable from previous exam with no significant spinal canal stenosis. [id number] degrees of multilevel facet arthropathy are noted with some progression of facet arthropathy at L5-S1. 3. Right lateral disc protrusion at L3-L4 abutting the exiting right L3 nerve root similar to the previous exam. 4. Left subarticular disc protrusion at L5-S1 abutting the left S1 nerve root sleeve similar to the previous exam. 5. Other small disc herniations as described above without neural impingement.
== END 2023-03-05 13:02 | disposition home or self-care (01) ==
LOC: HO.MRI 13:01
PROVIDERS: PCP Internal Medicine; Visit Provider Orthopaedic Surgery
DX: M54.50 Low back pain, unspecified (principal); M79.606 Pain in leg, unspecified
CPT/HCPCS: 72148

== ENCOUNTER 2023-03-19 11:04 | Outpatient (AMB) | payer OTHER, SELFPAY ==
[2023-03-19 11:28] VITALS: BMI 30.3
--- NOTE | 2023-03-19 11:28 | MHC.OFFVIS ---
Intake Vital Signs 03/19/23 11:28 Height 5 ft 10 in Weight 211 lb BMI 30.3 Intake Visit Reasons: OV-Lumber spine MRI results Intake Note: Williams presents today with complaints of progressively worsening cervical spine pain which radiates into his arms as well as progressively worsening low back pain. His symptoms have gotten worse over the last few years in spite of continued non operative treatments. The patient states that he has been to the emergency room on 3 separate occasions recently because of his neck pain. He also reports intermittent weakness in his legs. He has tried Tylenol, anti-inflammatory medicines and muscle relaxants which gave him minimal relief. He has also done physical therapy which aggravated his pain. Allergies clozapine [From Clozaril] Allergy (Mild, Verified 03/19/23 11:30) ringing in ears, pain, leukopenia trifluoperazine [From Stelazine] Allergy (Verified 03/19/23 11:30) Tongue Swelling Medication List - Last Reconciled 03/19/23 by Markos Henley MD acetaminophen (Tylenol Extra Strength) 500 mg PO Q6H PRN 30 days aspirin 1 tab PO QAM 90 days atorvastatin 10 mg PO BEDTIME bismuth subsalicylate 525 mg PO DAILY PRN blood sugar diagnostic As directed [CANE (regular) As directed] cholecalciferol (vitamin D3) (Vitamin D3) 25 mcg PO DAILY desmopressin 0.2 mg (2 x 0.1 mg) PO BEDTIME docusate sodium 200 mg (2 x 100 mg) PO BID 30 days famotidine 40 mg (2 x 20 mg) PO BID 30 days Grab bar As directed ibuprofen 600 mg PO TID PRN insulin glargine (Lantus Solostar U-100 Insulin) 48 units (0.48 mL) subcut DAILY lactulose 15 mL PO BEDTIME PRN lancets As directed levothyroxine 50 mcg PO QAM lidocaine 5% (Lidoderm) 1 patch topical DAILY PRN MDD remove after 12 hours lisinopril 5 mg PO DAILY magnesium oxide 400 mg PO DAILY 30 days methylprednisolone (Medrol (Georges)) PO PER PKG DIR metoprolol tartrate 50 mg PO BID multivitamin 1 tab PO DAILY nicotine 21 mg transdermal DAILY 28 days omeprazole 20 mg PO DAILY pen needle, diabetic Use 4 times daily pen needle, diabetic (Comfort EZ Pen [place]) As directed perphenazine 8 mg PO TID perphenazine 1 tab PO BID [QUAD CANE As directed] semaglutide 0.5 mg (0.374 mL) subcut QWEEK tizanidine 4 mg PO BEDTIME trazodone 150 mg (3 x 50 mg) PO BEDTIME 30 days PFSH Medical History Facet arthritis of lumbar region Thrombocytopenia Hypomagnesemia Obesity (BMI 30-39.9) On beta evaristo at home Lung nodule Screening for STD (sexually transmitted disease) Obesity (BMI 30-39.9) Smoker Schizophrenia Nocturnal enuresis Anxiety Midline low back pain Acquired hypothyroidism GERD without esophagitis Constipation Pure hypercholesterolemia Benign essential hypertension Diabetes mellitus Obstructive sleep apnea Dyspnea Obesity (BMI 35.0-39.9 without comorbidity) Nicotine dependence, cigarettes, uncomplicated Schizoaffective disorder Insulin dependent diabetes mellitus Hypothyroidism Hypertension, essential Hyperlipidemia Surgical History H/O colonoscopy (~10/12/20) Hx of facial fracture repair History of left inguinal hernia repair Family History Father CVD (cardiovascular disease) Mother CVD (cardiovascular disease) Diabetes Sister Colon polyps Social History Household Members: Other Household Members Other:: lives in a supported apartment problem Housing: Apartment Housing Other:: lives in a supported apartment problem Do you presently have visiting nurse or other home services: No Alcohol intake: former Patient Tobacco Use Status: Current someday Tobacco user Tobacco use type: Cigarette and Cigar Cigarette Packs Per Day: 0.75 Cigarettes Per Day: 40 Years Smoked: 30 e-Cigarette/Vaping Use: Never Used Second Hand Smoke Exposure: No service: No Current occupational status: disabled Sexual orientation: Straight/Heterosexual Cognitive needs: No Hearing needs: No Vision needs: No Physical Exam Vital Signs: BMI result Body Mass Index 30.3 Const Other: Well-nourished well-developed very friendly male awake alert and oriented x3 in no acute distress Neck Other: Cervical spine examination shows bilateral paraspinal muscle tenderness, pain with range of motion, positive Spurling's test, 4/5 strength with testing of his bilateral biceps and wrist extensors Back/Spine/Pelvis Other: Low back examination shows left-sided paraspinal muscle tenderness, pain with range of motion, positive straight leg raise test Results Reviewed Results Reviewed: MRI report of the patient's lumbar spine shows diffuse degenerative disc disease as well as moderate facet arthropathy and stenosis Assessment & Plan Assessment & Plan (1) Low back pain radiating down leg: Code(s): M54.50 - Low back pain, unspecified; M79.606 - Pain in leg, unspecified (2) Neck pain: Code(s): M54.2 - Cervicalgia Plan: Mr. White presents with back pain due to lumbar stenosis as well as progressively worsening cervical spine pain which radiates into both of his arms possibly due to cervical stenosis versus a disc herniation. Thus, I will order an MRI of his cervical spine for further evaluation. I will also refer him to the pain management group here at [facility]. I did give him a prescription for a Medrol Dosepak to help with his symptoms in the meantime. Feel free to call me at any time should questions regarding his orthopedic management arise. I spent 22 minutes in reviewing the patient's records and imaging studies, seeing the patient and documenting in the medical record. Orders: Orders MR cervical spine wo con Today M54.2 - Cervicalgia Referrals Pain Management Referral M54.2 - Cervicalgia, M54.50 - Low back pain, unspecified, M79.606 - Pain in leg, unspecified Medications: New methylprednisolone (Medrol (Georges)) PO PER PKG DIR 21 ea 0RF Coding Level of Care Code Est Pt Level 2 (99372) Diagnoses Low back pain radiating down leg M54.50; M79.606 Neck pain M54.2
== END 2023-03-19 12:07 | disposition home or self-care (01) ==
PROVIDERS: PCP Internal Medicine; Visit Provider Orthopaedic Surgery
DX: M54.50 Low back pain, unspecified (principal); M79.606 Pain in leg, unspecified; M54.2 Cervicalgia
CPT/HCPCS: 99212

== ENCOUNTER → 2023-03-19 11:04 | Outpatient (BNVA) | payer OTHER, SELFPAY | PROVIDERS: PCP Internal Medicine; Visit Provider Orthopaedic Surgery | DX: M54.50 Low back pain, unspecified (principal); M79.606 Pain in leg, unspecified; M54.2 Cervicalgia | CPT/HCPCS: 99212 ==

== ENCOUNTER 2023-04-06 09:54 | Outpatient (AMB) | payer OTHER, SELFPAY ==
--- NOTE | 2023-04-06 10:01 | MHC.OFFVIS ---
Intake Vital Signs 04/06/23 10:09 Height 5 ft 10 in Weight 211 lb BMI 30.3 Blood Pressure Location Lt brachial Position Sitting Respiration 12 Pulse 88 Pulse Source Pulse Oximeter Pulse Oximetry (%) 97 Oxygen Delivery Method Room Air Intake Visit Reasons: Cervicalgia/confirmed Allergies clozapine [From Clozaril] Allergy (Mild, Verified 04/06/23 10:09) ringing in ears, pain, leukopenia trifluoperazine [From Stelazine] Allergy (Verified 04/06/23 10:09) Tongue Swelling Medication List - Last Reconciled 04/06/23 by Liliam Anderson LPN acetaminophen (Tylenol Extra Strength) 500 mg PO Q6H PRN 30 days aspirin 1 tab PO QAM 90 days atorvastatin 10 mg PO BEDTIME bismuth subsalicylate 525 mg PO DAILY PRN blood sugar diagnostic As directed [CANE (regular) As directed] cholecalciferol (vitamin D3) (Vitamin D3) 25 mcg PO DAILY clonazepam (Klonopin) 0.5 mg PO BID desmopressin 0.2 mg (2 x 0.1 mg) PO BEDTIME docusate sodium 200 mg (2 x 100 mg) PO BID 30 days famotidine 40 mg (2 x 20 mg) PO BID 30 days Grab bar As directed ibuprofen 600 mg PO TID PRN insulin glargine (Lantus Solostar U-100 Insulin) 48 units (0.48 mL) subcut DAILY lactulose 15 mL PO BEDTIME PRN lancets As directed levothyroxine 50 mcg PO QAM lisinopril 5 mg PO DAILY magnesium oxide 400 mg PO DAILY 30 days metoprolol tartrate 50 mg PO BID multivitamin 1 tab PO DAILY omeprazole 20 mg PO DAILY pen needle, diabetic Use 4 times daily pen needle, diabetic (Comfort EZ Pen [place]) As directed perphenazine 8 mg PO TID perphenazine 4 mg PO TID [QUAD CANE As directed] semaglutide 0.5 mg (0.374 mL) subcut QWEEK tizanidine 4 mg PO BEDTIME trazodone 150 mg (3 x 50 mg) PO BEDTIME 30 days HPI Cervicalgia/confirmed HPI Details 57-year-old male who presents today to the office for an evaluation of low back pain. The patient reports progressively worsening low back pain and cervical spine pain that radiates into his arms. He states that his pain symptoms have gotten worse over the last few years. He has difficulty doing his daily chores and activities due to pain. He reports numbness in his back and his leg. He also reports pain in his hip region. He has tried non-operative treatments with no relief. He states that he has been to the emergency room on three separate occasions recently because of his neck pain. He also reports intermittent weakness in his legs. He has tried Tylenol, anti-inflammatory medicines, and muscle relaxants that provided minimal relief. He has also done physical therapy, which has aggravated his pain. PENDING SALE TO [facility] Medical History Facet arthritis of lumbar region Thrombocytopenia Hypomagnesemia Obesity (BMI 30-39.9) On beta evaristo at home Lung nodule Screening for STD (sexually transmitted disease) Obesity (BMI 30-39.9) Smoker Schizophrenia Nocturnal enuresis Anxiety Midline low back pain Acquired hypothyroidism GERD without esophagitis Constipation Pure hypercholesterolemia Benign essential hypertension Diabetes mellitus Obstructive sleep apnea Dyspnea Obesity (BMI 35.0-39.9 without comorbidity) Nicotine dependence, cigarettes, uncomplicated Schizoaffective disorder Insulin dependent diabetes mellitus Hypothyroidism Hypertension, essential Hyperlipidemia Surgical History H/O colonoscopy (~10/12/20) Hx of facial fracture repair History of left inguinal hernia repair Family History Father CVD (cardiovascular disease) Mother CVD (cardiovascular disease) Diabetes Sister Colon polyps Social History Household Members: Other Household Members Other:: lives in a supported apartment problem Housing: Apartment Housing Other:: lives in a supported apartment problem Do you presently have visiting nurse or other home services: No Alcohol intake: former Patient Tobacco Use Status: Current someday Tobacco user Tobacco use type: Cigarette and Cigar Cigarette Packs Per Day: 0.75 Cigarettes Per Day: 40 Years Smoked: 30 e-Cigarette/Vaping Use: Never Used Second Hand Smoke Exposure: No service: No Current occupational status: disabled Sexual orientation: Straight/Heterosexual Cognitive needs: No Hearing needs: No Vision needs: No Review of Systems Const All systems reviewed & are unremarkable except as noted in HPI and below Physical Exam Vital Signs: Last Vital Signs Pulse 88 04/06/23 10:09 Resp 12 04/06/23 10:09 Pulse Ox 97 04/06/23 10:09 Oxygen Delivery Method Room Air 04/06/23 10:09 BMI result Body Mass Index 30.3 General: Appears afebrile. Alert and oriented. Mood and affect appropriate. Follows and participates in conversation appropriately. Respiratory effort is unlabored. Able to transition from sit to stand unassisted. Ambulates with bilaterally normal heel strike and toe off. Results Reviewed Results Reviewed: 03/05/2023: MR LUMBAR SPINE WITHOUT CONTRAST FINDINGS: Coronal Alignment: Normal. Sagittal Alignment: There is a 2 mm of 5 grade 1 degenerative spondylolisthesis at L4-L5 which has developed since the previous exam without spondylolysis. Otherwise normal lumbar alignment. Lumbosacral Junction: Normal. There are 5 [id number] lumbar-type vertebral bodies. Vertebral Bodies: Stable vertebral body heights. No interval compression fractures. Disc Spaces and Endplates: The intervertebral disc space heights and signal are stable in appearance from the previous exam. There is anterior marginal spondylosis at L1-L2 progressed from previous study. Anterior marginal spondylosis at L2-L3 slightly progressed as well. Minor multilevel disc desiccation is similar to the previous study at L3-L4, L4-L5 and L5-S1 and has progressed at L1-L2 and L2-L3. Schmorl's node formation along the superior endplate of T12, stable in appearance. Disc desiccation at T11-T12 progressed from previous study. Spinal Canal: No abnormal developmental findings. Bone Marrow: Diffusely mildly heterogeneous bone marrow signal intensity seen throughout the osseous structures, similar to the previous study with benign lipid-rich hemangiomata in the L3 and L5 vertebral bodies, similar to the prior exam. Minor type II degenerative marrow signal changes have developed along the anterior endplates of T12-L1 since previous exam. No bone marrow edema. Conus Medullaris: Terminates at L1. Morphology and signal is normal. Intradural Nerve Roots: Within normal limits. L5-S1: Redemonstrated is a small, shallow broad-based left subarticular disc protrusion with annular fissuring, which contacts the left S1 nerve root sleeve, grossly similar in appearance to the previous exam without significant central spinal canal stenosis. Slight narrowing. The left subarticular zone is stable. Wncw-[id number] bilateral facet arthropathy is slightly progressed from previous exam with minor narrowing of the left neural foramen, slightly more evident on current study without definite exiting neural impingement. L4-L5: Slight unroofing of the posterior disc margin noted on current exam consistent with development of mild grade 1 degenerative spondylolisthesis. Mild diffuse annular bulging is noted with mild posterolateral annular fissuring noted bilaterally, stable on the right and newly developed on the left. Slight flattening of the ventral dural sac is slightly more prominent on current exam. There is moderate bilateral facet arthropathy, left more than right, similar to the previous exam without significant spinal canal stenosis. There is [id number] left-sided and mild right-sided neural foraminal narrowing, grossly unchanged in appearance on the right and slightly progressed on the left with minimal encroachment on the exiting left L4 nerve root on current exam. L3-L4: Previously noted right-sided foraminal/extraforaminal disc protrusion with an annular fissure is again noted, which abuts the exiting right L3 nerve root, similar to the previous exam. There is minor underlying annular bulging, stable in appearance. There is moderate facet arthropathy and mild ligamentum flavum thickening, slightly progressed from previous study without significant canal stenosis. Minor foraminal narrowing is noted on the left and moderate on the right, stable in appearance. L2-L3: Small right inferior foraminal disc herniation noted on current study without neural impingement. Otherwise normal annular contour. Minor facet arthropathy noted bilaterally. No significant canal or neural foraminal stenosis. L1-L2: On current study, there is a small right paramedian disc herniation with minimal indentation of the right ventral thecal sac. There is also a small left subarticular disc herniation as well without neural impingement. No significant facet arthrosis, canal or foraminal stenosis. T12-L1: Small left paramedian disc herniation, stable in appearance with mild indentation of the left ventral thecal sac. No significant facet arthrosis, canal or foraminal stenosis. Paravertebral and Included Extraspinal Soft Tissues: The visualized paravertebral soft tissues and included retroperitoneal structures are unremarkable within the limitations of the exam. IMPRESSION: 1. Mild grade 1 degenerative spondylolisthesis at L4-L5 has developed since previous exam with stable bilateral facet arthropathy at this level, with stable ykqw-nq-kxccfsrk left-sided and mild right-sided neural foraminal stenosis with minimal encroachment on the exiting left L4 nerve root on current study. Diffuse annular bulging is noted at this level with bilateral annular fissuring as detailed above. 2. Multilevel discogenic degenerative changes and spondylosis as described above with multilevel disc herniations, most of which are stable from previous exam with no significant spinal canal stenosis. Vtvx-ja-yqevxjoq degrees of multilevel facet arthropathy are noted with some progression of facet arthropathy at L5-S1. 3. Right lateral disc protrusion at L3-L4 abutting the exiting right L3 nerve root similar to the previous exam. 4. Left subarticular disc protrusion at L5-S1 abutting the left S1 nerve root sleeve similar to the previous exam. 5. Other small disc herniations as described above without neural impingement. 09/18/22: XR LUMBOSACRAL SPINE FINDINGS: Bone alignment is normal. No fracture or dislocation. Degenerative spondylosis the lower thoracic spine, T12-L1 and L1-L2. Normal disc spaces. Lower lumbar spine facet arthritis. IMPRESSION: Atherosclerotic disease. 08/05/22: CT CERVICAL SPINE WITHOUT CONTRAST FINDINGS: No acute CT imaging abnormalities. The visualized skull base is normal and mastoid air cells are well aerated. The craniocervical junction is normal. The dens and atlantodental articulation are intact. There is calcium deposition (likely calcium pyrophosphate dihydrate crystal deposition) around the dens. The cervical vertebra have normal height and alignment. No fractures in the anterior or posterior elements. No prevertebral edema or soft tissue hematoma. There is mild multilevel disco-vertebral degenerative change with osteophyte formation of the spine. There is posterior ligament ossification at C3, C4 and C5. At C3-C4, the posterior ligament ossification causes central canal stenosis (i.e., narrows the canal to 0.7 cm AP diameter). At C5, the posterior ligament ossification is more mild and does not significantly narrow the central canal. There is no significant stenosis of the neural foramina. The visualized lung apices are unremarkable. Thyroid gland is normal. IMPRESSION: * No acute fracture or malalignment of the mildly degenerative cervical spine. * Cervical spinal canal stenosis is caused by the posterior longitudinal ligament ossification at C3-C4. Assessment & Plan Assessment & Plan (1) Low back pain radiating down leg: Code(s): M54.50 - Low back pain, unspecified; M79.606 - Pain in leg, unspecified (2) Neck pain: Code(s): M54.2 - Cervicalgia Plan A referral was provided to physical therapy for stretching and strengthening of core and back. The patient will receive a call to schedule an appointment. The patient will follow up in three months to assess the response to therapy. If he is not feeling better, we can consider a right L3 transforaminal injection. But at this time, I had a long discussion with him regarding trying to stay away from corticosteroids, given his history of diabetes and schizophrenia/occasional psychosis, and focus on functional improvement with physical therapy and exercise. Scribed for Dr. Cutler by Audi Morfin, healthcare or medical, on 04/06/2023. I, Dr. Cutler, have personally reviewed and agree with the information entered by the scribe. Orders: Orders PT Evaluation and Treatment 04/06/23 M54.50 - Low back pain, unspecified, M79.606 - Pain in leg, unspecified Coding Level of Care Code New Pt Level 4 (29421) Diagnoses Low back pain radiating down leg M54.50; M79.606 Neck pain M54.2
[2023-04-06 10:09] VITALS: PULSE 88; RESP 12; O2SAT 97; BMI 30.3
== END 2023-04-06 10:41 | disposition home or self-care (01) ==
PROVIDERS: PCP Internal Medicine; Referring Provider Orthopaedic Surgery; Visit Provider Internal Medicine
DX: M54.50 Low back pain, unspecified (principal); M79.606 Pain in leg, unspecified; M54.2 Cervicalgia
CPT/HCPCS: 99204

== ENCOUNTER → 2023-04-06 09:54 | Outpatient (BNVA) | payer OTHER, SELFPAY | PROVIDERS: PCP Internal Medicine; Referring Provider Orthopaedic Surgery; Visit Provider Internal Medicine | DX: M54.50 Low back pain, unspecified (principal); M79.606 Pain in leg, unspecified; M54.2 Cervicalgia | CPT/HCPCS: 99202 ==

== ENCOUNTER 2023-05-13 12:00 | Outpatient (RCR) | payer OTHER, SELFPAY ==
--- NOTE | 2023-05-08 11:54 | MHC.PT.EP ---
[facility] [place] Office [place] Office [place] Office [address] Maria Elena Pacheco [address] [phone] F: [phone] F: [phone] F: [phone] F: [phone] Physical Therapy Plan of Care Date of Evaluation: 05/08/23 Date of Surgery: N/A Diagnosis: low back pain; pain in leg (RL) Assessment: pt is a 57 y/o male presenting to physical therapy w/ referring diagnosis of low back pain. pt's MRI demonstrates multi-level disc and nerve involvement including spondylolisthesis present. Overall, his motivation is fair. Impairments include pain, decreased range of motion, decreased strength, impaired functional mobility, impaired postural awareness, and altered ambulation mechanics. pt is a fair candidate for skilled PT due to age, potential remediation of impairments, typical disease/condition progression and prognosis, comorbidities, and motivation. pt would benefit from skilled PT intervention to provide a tailored strengthening and stretching exercise program, functional training, gait training, postural re-training, neuromuscular re-education, modalities as needed for pain, equipment safety demonstration. Frequency and Duration: The patient will be seen 2x/wk for 4 wks Short Term Goals: pt will be I w/ HEP to promote self-management of condition. pt will demo proper sitting posture w/ lumbar roll to promote neutral spine w/ seated ADLs. Mcc Goals: pt will report a statistically significant improvement in self-reported outcome measure, LEFI, to promote return to PLOF. pt will improve B hip strength by 1 MMT to promote ease in stair navigation. Treatment Plan: Modalities to reduce pain, spasms and effusion. Manual therapy to restore motion and function. Therapeutic exercise to improve strength and flexibility. Neuromuscular re-education for posture and balance. Therapeutic activities to return to functional activities of daily living. Electronically signed by: Lisa Grubbs PT, DPT Please sign and return to therapist. Thank you for your referral.
--- NOTE | 2023-06-02 11:18 | MHC.PT.DC ---
[facility] [place] Office [place] Office [place] Office [address] Maria Elena Pacheco [address] [phone] F: [phone] F: [phone] F: [phone] F: [phone] Physical Therapy Discharge Report Diagnosis: low back pain; pain in leg (RL) Date of Surgery: N/A Date of Evaluation: 05/08/23 Date of Discharge: 06/02/23 Treatments to Date: 2 Cancellations to Date: 0 No Shows to Date: 2 Discharge Status: Visit Non-compliance Discharge Summary: The patient overall was not interested in physical therapy at this time. He had little to no motivation and would frequently come up with excuses as to why he could not do certain exercises. He would admit non-compliance to the exercises he was given to work on at home. He no showed two consecutive appointments. Per [facility] [place] [place] [facility] attendance policy, he is discharged for non-compliance. Electronically signed by: Lisa Grubbs PT, DPT Please sign and return to therapist. Thank you for your referral.
== END 2023-06-02 11:18 | disposition home or self-care (01) ==
LOC: HO.PT 12:00
PROVIDERS: PCP Internal Medicine; Visit Provider Internal Medicine
DX: M54.50 Low back pain, unspecified (principal); M79.606 Pain in leg, unspecified
CPT/HCPCS: 97110; 97162

== ENCOUNTER 2023-07-04 10:50 | Emergency (ER) | payer OTHER, SELFPAY ==
--- NOTE | ~2023-07-04 | XR_ITS ---
EXAMINATION: X-RAY RIGHT ANKLE AND RIGHT FOOT CLINICAL INFORMATION: Diabetic blister to heel. COMPARISON: None. TECHNIQUE: 2 views of the right ankle and 3 views of the right foot. FINDINGS: Diffuse soft tissue swelling. Moderate vascular calcifications. Age indeterminate lateral subluxation of the second DIP joint. No fractures. No discrete destructive osseous changes to suspect osteomyelitis by radiograph. Moderate to severe multilevel spurring and degenerative arthrosis. XR/XR foot RT min 3V IMPRESSION: 1. Diffuse soft tissue swelling. 2. No discrete destructive osseous changes to suspect osteomyelitis. However, early osteomyelitis can be radiographically occult and if indicated correlation with an MR is recommended. 3. Age indeterminate lateral subluxation of the second DIP joint. 4. Moderate to severe multifocal spurring and degenerative changes.
--- NOTE | ~2023-07-04 | XR_ITS ---
EXAMINATION: X-RAY RIGHT ANKLE AND RIGHT FOOT CLINICAL INFORMATION: Diabetic blister to heel. COMPARISON: None. TECHNIQUE: 2 views of the right ankle and 3 views of the right foot. FINDINGS: Diffuse soft tissue swelling. Moderate vascular calcifications. Age indeterminate lateral subluxation of the second DIP joint. No fractures. No discrete destructive osseous changes to suspect osteomyelitis by radiograph. Moderate to severe multilevel spurring and degenerative arthrosis. XR/XR ankle RT min 3V IMPRESSION: 1. Diffuse soft tissue swelling. 2. No discrete destructive osseous changes to suspect osteomyelitis. However, early osteomyelitis can be radiographically occult and if indicated correlation with an MR is recommended. 3. Age indeterminate lateral subluxation of the second DIP joint. 4. Moderate to severe multifocal spurring and degenerative changes.
[2023-07-04 11:17] VITALS: BP 123/68; PULSE 96; RESP 18; TEMP 36.3; O2SAT 98; BMI 30.4
--- NOTE | 2023-07-04 11:20 | ED.GENADULT ---
HPI - General Adult General Chief complaint: Extremity Injury, Lower Stated complaint: blister Time Seen by Provider: 07/04/23 11:32 Source: patient, RN notes reviewed and old records reviewed Mode of arrival: ambulatory Limitations: no limitations History of Present Illness HPI narrative: 57 year old male with pmhx significant for arthritis, thrombocytopenia, schizophrenia, BPH, obesity, anxiety, GERD, HTN, DM, JUANITA, HLD, and hypothyroidism presents to the ED today for evaluation of blister to right heel x2 weeks following inpatient stay at [facility]. He declines telling me why he was admitted. He reports painful blister to the back of his right heel since being discharged that has not resolved. He admits to wearing sneakers while in his house which rub against his heel and exacerbate the pain. Adds that the pain is worse with lying down, when his heel rubs against the bed/cough. Admits to lying around his house more than usual over the last two weeks. Taking tylenol and ibuprofen at home without relief. Denies drainage from the area. Denies history of diabetic foot ulcers. Denies history of amputations. Does not currently follow with wound clinic. He has visiting nurses who care for him at home daily. Denies fever, chills, chest pain, N/V, numbness/weakness/tingling of the right lower extremity. Denies new trauma/injury to the right foot. Related Data Home Medications Medication Instructions Recorded Confirmed blood sugar diagnostic #10 ea 03/15/20 03/19/23 lancets 28 gauge #100 ea 03/15/20 03/19/23 perphenazine 8 mg tablet 8 mg PO TID 02/26/22 04/06/23 bismuth subsalicylate 525 mg/15 mL 525 mg PO DAILY PRN INDEGESTION 04/29/22 04/06/23 oral suspension clonazepam 0.5 mg tablet (Klonopin) 0.5 mg PO BID 04/06/23 04/06/23 perphenazine 4 mg tablet 4 mg PO TID 04/06/23 04/06/23 Previous Rx's Medication Instructions Recorded pen needle, diabetic 31 gauge x #1,200 ea 03/12/21 5/16 QUAD CANE #1 ea 07/31/21 trazodone 50 mg tablet 150 mg (3 x 50 mg) PO BEDTIME 30 05/09/22 days #90 tabs multivitamin 1 tab PO DAILY #90 tabs 05/26/22 levothyroxine 50 mcg tablet 50 mcg PO QAM #90 tabs 06/25/22 aspirin 81 mg chewable tablet 1 tab PO QAM 90 days #90 tabs 11/21/22 acetaminophen 500 mg tablet 500 mg PO Q6H PRN fever or pain 30 01/01/23 (Tylenol Extra Strength) days #120 tabs magnesium oxide 400 mg PO DAILY 30 days #30 tabs 01/09/23 ibuprofen 600 mg tablet 600 mg PO TID PRN for pain #90 tabs 01/28/23 pen needle, diabetic 33 gauge x #100 ea 02/02/2305/07 (Comfort EZ Pen [place]) Grab bar #2 ea 02/03/23 CANE (regular) #1 ea 02/11/23 insulin glargine 100 unit/mL (3 48 unit (0.48 mL) subcut DAILY #15 02/13/23 mL) subcutaneous pen (Lantus mL Solostar U-100 Insulin) atorvastatin 10 mg tablet 10 mg PO BEDTIME #90 tabs 02/26/23 omeprazole 20 mg capsule,delayed 20 mg PO DAILY #90 caps 03/11/23 release lactulose 10 gram/15 mL oral 15 ml PO BEDTIME PRN severe 03/30/23 solution constipation #237 mL tizanidine 4 mg tablet 4 mg PO BEDTIME for low back pain 04/29/23 #30 tabs cholecalciferol (vitamin D3) 25 25 mcg PO DAILY #30 tabs 05/07/23 mcg (1,000 unit) tablet (Vitamin D3) metoprolol tartrate 50 mg tablet 50 mg PO BID #180 tabs 05/12/23 lisinopril 5 mg tablet 5 mg PO DAILY #90 tabs 05/13/23 famotidine 20 mg tablet 40 mg (2 x 20 mg) PO BID 30 days 05/18/23 #120 tabs docusate sodium 100 mg capsule 200 mg (2 x 100 mg) PO BID 30 days 05/25/23 #120 caps semaglutide 0.25 mg or 0.5 mg (2 0.5 mg (0.736 mL) subcut QWEEK #3 06/30/23 mg/3 mL) subcutaneous pen injector mL (Ozempic) desmopressin 0.1 mg tablet 0.2 mg (2 x 0.1 mg) PO BEDTIME #90 07/01/23 tabs cephalexin 500 mg capsule 500 mg PO TID 7 days #21 caps 07/04/23 naproxen 250 mg tablet 250 mg PO Q8-12H PRN pain (scale 07/04/23 score 4-6) #14 tabs Allergies Allergy/AdvReac Type Severity Reaction Status Date / Time clozapine [From Clozaril] Allergy Mild ringing in Verified 07/04/23 11:22 ears, pain, leukopenia trifluoperazine Allergy Tongue Verified 07/04/23 11:22 [From Stelazine] Swelling Review of Systems Review of Systems: Constitutional: No fever, chills, fatigue, night sweats, weight changes ENT/Mouth: No ear pain, hearing loss, nasal congestion, sinus pain, rhinorrhea, sore throat Eyes: No eye pain, swelling, redness, vision changes, discharge Cardio: No chest pain, palpitations, LEWIS, orthopnea, peripheral edema Pulm: No SOB, cough, sputum, wheezing, dyspnea, hemoptysis GI: No nausea, vomiting, hematemesis, abdominal pain, diarrhea, constipation, hematochezia, melena : No irregular bleeding, dysuria, frequency, urgency, hesitancy, hematuria, flank pain, urinary flow changes, urinary incontinence or retention MSK: No back pain, neck pain, joint pain, myalgias Skin: No lesions, rashes, +blister to right heel Neuro: No weakness, numbness, paresthesias, LOC, dizziness, headache Psych: No anxiety/panic, depression, SI/HI, AH/VH All other systems reviewed and are negative. [facility] Past Medical History Attestation statement: The following information was validated with the patient. Source: old records reviewed and nursing notes reviewed Medical History Facet arthritis of lumbar region Thrombocytopenia Hypomagnesemia Obesity (BMI 30-39.9) On beta evaristo at home Lung nodule Screening for STD (sexually transmitted disease) Obesity (BMI 30-39.9) Smoker Schizophrenia Nocturnal enuresis Anxiety Midline low back pain Acquired hypothyroidism GERD without esophagitis Constipation Pure hypercholesterolemia Benign essential hypertension Diabetes mellitus Obstructive sleep apnea Dyspnea Obesity (BMI 35.0-39.9 without comorbidity) Nicotine dependence, cigarettes, uncomplicated Schizoaffective disorder Insulin dependent diabetes mellitus Hypothyroidism Hypertension, essential Hyperlipidemia Surgical History H/O colonoscopy (~10/12/20) Hx of facial fracture repair History of left inguinal hernia repair Family History Family History Father CVD (cardiovascular disease) Mother CVD (cardiovascular disease) Diabetes Sister Colon polyps Social History Social History Household Members: Other Household Members Other:: lives in a supported apartment problem Housing: Apartment Housing Other:: lives in a supported apartment problem Do you presently have visiting nurse or other home services: No Alcohol intake: former Patient Tobacco Use Status: Current someday Tobacco user Tobacco use type: Cigarette and Cigar Cigarette Packs Per Day: 0.75 Cigarettes Per Day: 40 Years Smoked: 30 e-Cigarette/Vaping Use: Never Used Second Hand Smoke Exposure: No Advance Directives: No Advance Directives Information Provided: No service: No Current occupational status: disabled Sexual orientation: Straight/Heterosexual Cognitive needs: No Hearing needs: No Vision needs: No Physical Exam ED Vital Signs: Vital Signs - 24 hr 07/04/23 11:17 Temperature 97.3 F Pulse Rate 96 Respiratory Rate 18 Blood Pressure 123/68 Pulse Oximetry 98 Oxygen Delivery Method Room Air BMI result Body Mass Index 30.4 Vital signs stable, afebrile. Const General: cooperative, comfortable and no acute distress Orientation/consciousness: patient oriented x3 Limitations: no limitations [facility] Head: Yes normal to inspection, Yes No palpable skull fracture present, Yes normocephalic and Yes atraumatic Eyes General: appearance normal, both eyes and all related structures Conjunctivae: conjunctivae normal Sclerae: sclerae normal Neck Neck: Yes normal visual inspection Resp Effort & Inspection: normal respiratory effort Cardio Rate: regular rate Rhythm: regular rhythm Skin Other: + refer to photo below Neuro General: patient oriented x3 and gait normal Extrem Other: + refer to photo below of right heel + intact blister measuring 3x2 cm. no surrounding cellulitic changes or obvious signs of infection. no edema noted to right ankle. 2+ capillary refill to RLE, good perfusion to all 5 toes. No palpable warmth. sensation intact. full rom intact to right ankle. 2+pt/dp pulses. ambulates with cane at baseline. Course Course Course Narrative: RMFiliberto- 57-year-old male presents for evaluation of multiple complaints. He complains of a blister on the back of his right heel that has been there for about 2 weeks. He is concerned that his toes are ?changing color, he also complains of weakness. On exam, his toes are warm, dry, well perfused. He does have a blister to the right heel, no obvious signs of infection. Plan for basic labs Reevaluation(s) Reevaluation #1: 1400-- Patient refusing labs after two unsuccessful attemps by audio visual tech. I spoke with patient and explained the importance of obtaining blood work to ensure there is no infectious process resulting from his blister, especially given that he has diabetes > he declines. I explained these risks to which he verbalizes understanding. He was agreeable to xrays of the right foot/ankle to look for infection within the bone. XRs show soft tissue swelling without discrete destructive osseous changes to suggest osteomyelitis. As the early stages of osteo can be difficult to identify with plain radiographs, further imaging suggested. I discussed obtaining further imaging such as a CT scan to rule out early osteomyelitis > he declines at this time. I explained the risks of not obtaining further imaging and patient verbalizes understanding. > given patient is diabetic and prone to chronic wounds, will send keflex to pharmacy. I discussed worrisome signs and symptoms and when to return to the ED. all questions answered at this time. blister dressed with clean, sterile dressing. given pressure placed on blister by sneakers, will provide patient with post-op shoe to relieve the pain. referral to wound clinic provided. patient stable for discharge. Procedures Orthopedic Splinting/Casting Injury #1: Side: right Lower Extremity Injury Location: foot Lower Extremity Immobilizer: post-op shoe Medical Decision Making Medical Decision Making MDM Narrative: 57 year old male with pmhx significant for arthritis, thrombocytopenia, schizophrenia, BPH, obesity, anxiety, GERD, HTN, DM, JUANITA, HTN, HLD, hypothyroidism presents to the ED today for evaluation of blister to right heel x2 weeks. Vital signs stable. Afebrile. On exam of right foot, there is an intact blister measuring 3x2 cm to heel. no surrounding cellulitic changes or obvious signs of infection. no edema noted to right ankle. 2+ capillary refill to RLE, good perfusion to all 5 toes. No palpable warmth. sensation intact. full rom intact to right ankle. 2+pt/dp pulses. ambulates with cane at baseline. Differential diagnosis includes friction blister, diabetic foot wound, osteomyelitis. lower suspicion for fracture, cellulitis Plan for basic labs, inflammatory markers, and imaging. Differential Diagnosis Differential Diagnoses: The differential diagnosis associated with the presentation includes As above Admission/Observation Consideration of admission/observation: Escalation of care including admission/observation considered In this patient with hx of diabetes and wound to right heel, admission was considered. Independent Interpretation I performed an independent interpretation of an: Plain X-Ray Interpretation: I have personally reviewed xray and agree with radiologist's interpretation. Radiology Impression Discussion of test interpretation with radiology: I have reviewed the radiologist's reading. Radiologist Impression: XR foot RT min 3V IMPRESSION: 1. Diffuse soft tissue swelling. 2. No discrete destructive osseous changes to suspect osteomyelitis. However, early osteomyelitis can be radiographically occult and if indicated correlation with an MR is recommended. 3. Age indeterminate lateral subluxation of the second DIP joint. 4. Moderate to severe multifocal spurring and degenerative changes. External Record Review External record reviewed: Inpatient record, Office record, Outpatient record, Prior outpatient labs, Prior outpatient radiology, Primary care record and Outside ED record Tests considered The following testing was considered but not selected: I considered obtaining CT right foot/ankle for osteo rule out however patient declines further imaging. Prescription Management I considered prescription management with: Pain Medication and Antibiotic (keflex) Chronic Conditions Patient?s care impacted by: Diabetes Social Determinants Patient?s care significantly limited by Social Determinants of Health including: Other Social Determinant of Health Discharge Plan Discharge Clinical Impression: Friction blister of the foot Qualifiers: Encounter type: initial encounter Laterality: right Qualified Code(s): S90.821A - Blister (nonthermal), right foot, initial encounter Patient Disposition: Home, Self-Care Instructions: Blister (ED) Additional Instructions: You were evaluated in the ED today for blister on your right heel. You declined blood work. Your xrays do not demonstrate acute bone infection however further imaging is strongly recommended. You declined CT scan at this time. Your blister was dressed. Keep this clean, dry, and intact. Please have your visiting nurses change this dressing daily. You are a diabetic and thus are more prone to foot ulcers/ infections. Keflex is an antibiotic that has been sent to your pharmacy. Take this as prescribed over the next 7 days to prevent infection. You have been provided with contact information to the wound clinic. You can call them to make an appointment. they will not call you. naproxen is an anti-inflammatory that has been sent to your pharmacy. take this as needed for your bone pain. do not take this with other nsaids such as ibuprofen as it can increase risk of gi bleed. Return with new or worsening symptoms as discussed as these can be signs of infection. in the case of emergency call 911. Prescriptions: New naproxen 250 mg tablet 250 mg PO Q8-12H PRN (Reason: pain (scale score 4-6)) Qty: 14 0RF cephalexin 500 mg capsule 500 mg PO TID 7 Days Qty: 21 0RF No Action (DME) pen needle, diabetic 31 gauge x 5/16 needle See Rx Instructions .ROUTE .MEDSUPPLY Qty: 1200 0RF Rx Instructions: Use 4 times daily multivitamin Tablet 1 tab PO DAILY Qty: 90 2RF levothyroxine 50 mcg tablet 50 mcg PO QAM Qty: 90 3RF aspirin 81 mg tablet,chewable 1 tab PO QAM 90 Days Qty: 90 3RF magnesium oxide 400 mg magnesium tablet 400 mg PO DAILY 30 Days Qty: 30 3RF ibuprofen 600 mg tablet 600 mg PO TID PRN (Reason: for pain) Qty: 90 0RF (DME) Comfort EZ Pen [place] 33 gauge x 1/4 needle See Rx Instructions .ROUTE .MEDSUPPLY Qty: 100 12RF Rx Instructions: As directed (DME) Grab bar Misc See Rx Instructions .Route Qty: 2 0RF Rx Instructions: As directed insulin glargine [Lantus Solostar U-100 Insulin] 100 unit/mL (3 mL) insulin pen 48 unit subcut DAILY Qty: 15 5RF atorvastatin 10 mg tablet 10 mg PO BEDTIME Qty: 90 0RF omeprazole 20 mg capsule,delayed release(DR/EC) 20 mg PO DAILY Qty: 90 3RF lactulose 10 gram/15 mL solution 15 ml PO BEDTIME PRN (Reason: severe constipation) Qty: 237 1RF Rx Instructions: Take only for severe constipation that is not relieved with routine stool softeners tizanidine 4 mg tablet 4 mg PO BEDTIME Qty: 30 1RF cholecalciferol (vitamin D3) [Vitamin D3] 25 mcg (1,000 unit) tablet 25 mcg PO DAILY Qty: 30 3RF metoprolol tartrate 50 mg tablet 50 mg PO BID Qty: 180 1RF lisinopril 5 mg tablet 5 mg PO DAILY Qty: 90 0RF famotidine 20 mg tablet 40 mg PO BID 30 Days Qty: 120 5RF docusate sodium 100 mg capsule 200 mg PO BID 30 Days Qty: 120 0RF Ozempic 0.25 mg or 0.5 mg (2 mg/3 mL) pen injector 0.5 mg subcut QWEEK Qty: 3 2RF desmopressin 0.1 mg tablet 0.2 mg PO BEDTIME Qty: 90 1RF bismuth subsalicylate 525 mg/15 mL Suspension 525 mg PO DAILY PRN (Reason: INDEGESTION) Rx Instructions: do not exceed 8 doses in a 24 hour period trazodone 50 mg Tablet 150 mg PO BEDTIME 30 Days Qty: 90 0RF perphenazine 4 mg tablet 4 mg PO TID perphenazine 8 mg tablet 8 mg PO TID (DME) QUAD CANE See Rx Instructions .Route .MEDSUPPLY Qty: 1 0RF Rx Instructions: As directed acetaminophen [Tylenol Extra Strength] 500 mg tablet 500 mg PO Q6H PRN (Reason: fever or pain) 30 Days Qty: 120 3RF Rx Instructions: maximum of 4 tablets per day (DME) CANE (regular) See Rx Instructions .Route .MEDSUPPLY Qty: 1 0RF Rx Instructions: As directed (DME) blood sugar diagnostic Strip See Rx Instructions Not Applicable .MEDSUPPLY Qty: 10 Rx Instructions: As directed (DME) lancets 28 gauge misc See Rx Instructions topical .MEDSUPPLY Qty: 100 Rx Instructions: As directed clonazepam [Klonopin] 0.5 mg tablet 0.5 mg PO BID Referrals: [facility] [place] Wound Care Management [Provider Group] Interventions: ED Discharge Assessment Last Done: 07/04/23 14:04 Discharge Date/Time: 07/04/23 14:05
--- NOTE | 2023-07-04 11:36 | MHC.EDTECH ---
Pt refusing lab work as soon as he was called from the waiting room, stating I'm just here for my toe, I dont need labs . T/w eplained to Pt about the need for labs and he agreed initially and then refused. RN (Monet) aware when Pt brought [place] [facility]
--- NOTE | 2023-07-04 12:35 | PC.NURSE ---
Patient refused labs medical anthropologist attempted once failed and he refused for anyone to try again.
--- NOTE | 2023-07-04 13:54 | HO.SKINPHOTO ---
Location: right heel blister Category: Stage: Length: Width: Depth: cm Location: Category: Stage: Length: Width: Depth: cm Location: Category: Stage: Length: Width: Depth: cm Location: Category: Stage: Length: Width: Depth: cm Location: Category: Stage: Length: Width: Depth: cm Location: Category: Stage: Length: Width: Depth: cm
--- NOTE | 2023-07-04 13:58 | PC.NURSE ---
applied an allevyn dressing and wrapped with kerlix on right heel. Educated on need to wear loose shoe and refrain from putting pressure on heel.
== END 2023-07-04 14:05 | disposition home or self-care (01) ==
PROVIDERS: Emergency Provider Emergency Medicine Emergency Medical Services; PCP Internal Medicine
DX: S90.821A Blister (nonthermal), right foot, initial encounter (principal); X58.XXXA Exposure to other specified factors, initial encounter; Y93.9 Activity, unspecified; Y92.9 Unspecified place or not applicable; Y99.9 Unspecified external cause status; I10 Essential (primary) hypertension
CPT/HCPCS: 73610; 73630; 99282; 99283

== ENCOUNTER 2023-07-13 13:04 | Outpatient (AMB) | payer OTHER, SELFPAY ==
[2023-07-13 13:08] VITALS: BP 118/82; PULSE 88; O2SAT 96; BMI 30.7
--- NOTE | 2023-07-13 13:08 | A.OFFPC_ITS ---
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 Chlorine Liquefaction Required: No Accompanied by: Self / Same As Patient Allergies clozapine [From Clozaril] Allergy (Mild, Verified 07/13/23 14:06) ringing in ears, pain, leukopenia trifluoperazine [From Stelazine] Allergy (Verified 07/13/23 14:06) Tongue Swelling Medication List - Last Reconciled 07/13/23 by Mando Turpin MD acetaminophen (Tylenol Extra Strength) 500 mg PO Q6H PRN 30 days aspirin 81 mg PO QAM atorvastatin 10 mg PO BEDTIME bismuth subsalicylate 525 mg PO DAILY PRN blood sugar diagnostic As directed [CANE (regular) As directed] cholecalciferol (vitamin D3) (Vitamin D3) 25 mcg PO DAILY clonazepam (Klonopin) 0.5 mg PO BID desmopressin 0.2 mg (2 x 0.1 mg) PO BEDTIME docusate sodium 200 mg (2 x 100 mg) PO BID 30 days famotidine 40 mg (2 x 20 mg) PO BID 30 days Grab bar As directed ibuprofen 600 mg PO TID PRN insulin glargine (Lantus Solostar U-100 Insulin) 48 units (0.48 mL) subcut DAILY lactulose 15 mL PO BEDTIME PRN lancets As directed levothyroxine 50 mcg PO QAM lisinopril 5 mg PO DAILY magnesium oxide 400 mg PO DAILY 30 days metoprolol tartrate 50 mg PO BID multivitamin 1 tab PO DAILY naproxen 250 mg PO Q8-12H PRN pantoprazole 40 mg PO DAILY pen needle, diabetic Use 4 times daily pen needle, diabetic (Comfort EZ Pen Conway) As directed perphenazine 8 mg PO TID perphenazine 4 mg PO TID [QUAD CANE As directed] semaglutide (Ozempic) 0.5 mg (0.736 mL) subcut QWEEK sennosides (Senna Lax) 8.6 mg PO BEDTIME tizanidine 4 mg PO BEDTIME trazodone 150 mg (3 x 50 mg) PO BEDTIME 30 days Tobacco use date assessed: 07/13/23 Dental Screening Dental Screen Date: 07/13/23 Did you have a dental visit in the last 12 months?: No Did you have a dental problem in the last 6 months where you did not have access to dental care?: No Was dental information given to patient?: No HPI f/u HPI Details Patient comes in today for his follow up visit States that he currently has an ulcer on his right heel that has been present for a few weeks now Recalls that the ulcer seems to have first appeared during his hospitalization at [facility] last month States that the ulcer has not healed up at all and that his sneakers also often rub against it and feels that this is making it worse He was admitted to [facility] for a couple of weeks last month when he presented there on 06/10/2023 for chest pains and work ups done revealed pancytopenia, for which he was admitted for further evaluation although cardiac symptoms were ruled out Further work ups done revealed a newly-diagnosed MDS but patient declined to continue with their investigation and has also declined treatments as well as any potential blood transfusions, citing that this is against his filiberto (patient is NOT a Druze) States that he is tired of going for all these never-ending tests and lab draws as the main reason for his refusal of treatment even though everything was explained to him in detail by hematology-oncology at [facility], including the potential dangers and outcomes, including , but patient remains adamant in his refusal for treatment States that he currently feels okay Notes that his ears feel blocked (thinks that his ears may be plugged up again with ear wax) and would like to get a referral to see ENT for this Adds that other than his right heel ulcer, he has no other acute issues at present He denies any fever, headaches or dizziness Denies any chest pains, no SOB No nausea/vomiting, no abdominal pain No change in bowel habits noted Needs a couple of his Rx refilled He did not get his follow up labs done recently - states that he had a lot of blood tests done when he was admitted for a couple of weeks at [facility] last month and thinks that those should be enough to update us on his issues [facility] Medical History (Updated 07/24/23 @ 12:35 by Mando Turpin MD) Myelodysplastic syndrome with excess blasts Facet arthritis of lumbar region Thrombocytopenia Hypomagnesemia Obesity (BMI 30-39.9) On beta evaristo at home Lung nodule Screening for STD (sexually transmitted disease) Obesity (BMI 30-39.9) Smoker Schizophrenia Nocturnal enuresis Anxiety Midline low back pain Acquired hypothyroidism GERD without esophagitis Constipation Pure hypercholesterolemia Benign essential hypertension Diabetes mellitus Obstructive sleep apnea Dyspnea Obesity (BMI 35.0-39.9 without comorbidity) Nicotine dependence, cigarettes, uncomplicated Schizoaffective disorder Insulin dependent diabetes mellitus Hypothyroidism Hypertension, essential Hyperlipidemia Surgical History H/O colonoscopy (~10/12/20) Hx of facial fracture repair History of left inguinal hernia repair Family History Father CVD (cardiovascular disease) Mother CVD (cardiovascular disease) Diabetes Sister Colon polyps Social History Household Members: Other Household Members Other:: lives in a supported apartment problem Housing: Apartment Housing Other:: lives in a supported apartment problem Do you presently have visiting nurse or other home services: No Alcohol intake: former Patient Tobacco Use Status: Current someday Tobacco user Tobacco use type: Cigarette and Cigar Cigarette Packs Per Day: 0.75 Cigarettes Per Day: 40 Years Smoked: 30 e-Cigarette/Vaping Use: Never Used Second Hand Smoke Exposure: No service: No Current occupational status: disabled Sexual orientation: Straight/Heterosexual Cognitive needs: No Hearing needs: No Vision needs: No Questionnaire PHQ-9 Over the last 2 weeks, how often have you been bothered by any of the following problems? 1. Little interest or pleasure in doing things: not at all 2. Feeling down, depressed, or hopeless: not at all 3. Trouble falling or staying asleep, or sleeping too much: not at all 4. Feeling tired or having little energy: not at all 5. Poor appetite or overeating: not at all 6. Feeling bad about yourself - or that you are a failure or have let yourself or your family down: not at all 7. Trouble concentrating on things, such as reading the newspaper or watching television: not at all 8. Moving or speaking so slowly that other people could have noticed. Or the opposite - being so fidgety or restless that you have been moving around a lot more than usual: not at all 9. Thoughts that you would be better off or of hurting yourself in some way: not at all Total score: 0 Depression Screening Interpretation: Negative (is on Rx for depression/mood diso rder) Depression Screening Done: Yes [id number] - PHQ-9 Billing: Yes Source: Developed by Drs. Jaleel Shaffer, Sindy Vance, Ankit Yang and colleagues, with an educational riana from [employer]. Thrive Questionnaire Date Thrive assessed: 07/13/23 I am a: Patient What is your living situation today?: I have a steady place to live Within the past 12 months, did the food you bought not last and you didn't have the money to get more?: Never true Within the past 12 months, did you worry whether your food would run out before you got money to buy more?: Never true Do you have trouble paying for medicines?: No Do you have trouble getting transportation to medical appointments?: No Do you have trouble paying your heating and electricity bill?: No Do you have trouble taking care of your child, family member or friend?: No Do you have trouble with day-to-day activities such as bathing, preparing meals, shopping, managing finances, etc.?: No Are you currently unemployed and looking for a job?: No Are you interested in more education?: No Please select the resources that you would like help with: None Currently or been in a relationship where the following occur: no concerns reported THRIVE Score: 0 AUDIT C Alcohol Use Questionnaire (AUDIT-C) 1. How often do you have a drink containing alcohol?: Never 3. How often do you have six or more drinks on one occasion?: Never Total Score: 0 Score Reviewed/Action Taken: Yes MARCY-7 AMB Questionnaire MARCY-7 Date MARCY - 7 assessed: 07/13/23 Feeling nervous, anxious, or on edge: 1 = Several days Not being able to stop or control worryin = Several days Worrying too much about different things: 1 = Several days Trouble relaxin = Not at all Being so restless that it is hard to sit still: 1 = Several days Becoming easily annoyed or irritable: 0 = Not at all Feeling afraid as if something awful might happen: 2 = More than half the days Total MARCY-7 score (0-4 normal; 5-9 mild; 10-14 moderate; 15-21 severe): 6 Source: Developed by Drs. Jaleel Shaffer, Sindy Vance, Ankit Yang and colleagues, with an educational riana from [employer]. Review of Systems Const Denies chills, Reports fatigue, Denies fever(s) and Denies headache(s) ENT Details: both ears feel clogged up/congested, with decreased hearing; denies any ear pain Denies dysphagia, Denies dizziness, Denies otalgia, Denies headache(s), Denies neck pain, Denies odynophagia and Denies sore throat Card Denies chest pain, Denies rapid heart rate, Denies irregular heart rhythm, Denies palpitations and Denies dyspnea Resp Denies cough, Denies dyspnea and Denies wheezing GI Denies abdominal pain, Denies constipation, Denies dysphagia, Denies heartburn, Denies diarrhea, Denies nausea, Denies odynophagia and Denies vomiting Denies difficulty urinating, Denies dysuria and Denies urinary frequency Musc Reports back pain (on and off; worse at night), Reports arthralgias (over both hips; on and off in the hands and knees) and Denies neck pain Skin/Breast Denies rash and Reports skin ulcer (over the right heel x few weeks now) Neuro Denies dizziness, Denies headache(s) and Denies paresthesias Endo Reports fatigue and Denies palpitations Aller/Immun Denies wheezing Physical exam (Primary Care) Vital Signs: Last Vital Signs Pulse 88 07/13/23 13:08 BP 118/82 07/13/23 13:08 Pulse Ox 96 07/13/23 13:08 Oxygen Delivery Method Room Air 07/13/23 13:08 BMI result Body Mass Index 30.7 Tobacco/Smoking Status: Tobacco use Status Tobacco use date assessed 07/13/23 07/13/23 13:09 Patient Tobacco Use Status Current someday Tobacco 07/13/23 13:09 Tobacco use type Cigarette,Cigar 07/13/23 13:09 e-Cigarette/Vaping Use Never Used 07/13/23 13:09 PHQ-9: PHQ-9 Score PHQ-9: Total score 0 07/13/23 14:05 Depression Screening Interpretation: Negative (is on Rx for depression/mood disorder) Thrive Assessment: Date of Thrive Assessment Date Thrive assessed 07/13/23 07/13/23 13:10 Currently or been in a relationship where the following occur: no concerns reported Const General: no acute distress and alert HENMT Ears: unable to visualize TM (due to impacted cerumen) bilaterally Throat: Yes posterior oropharynx normal and Yes tonsils normal (no TP congestion) Neck Neck: Yes no lymphadenopathy and Yes supple Thyroid: Thyroid normal Resp Auscultation: clear to auscultation bilaterally, no rales and no wheezes Cardio Rate: regular rate Rhythm: regular rhythm Heart sounds: no murmurs GI Palpation (GI): Soft to palpation and nontender Auscultation: normal bowel sounds General: Yes no CVA tenderness Back/Spine/Pelvis Back: no CVA tenderness Thoracic/Lumbar Spine: lumbar spinal tenderness Skin Rashes: no rashes Extrem General: Yes no clubbing, cyanosis or edema Right lower extremity: hip/thigh Details: tenderness Location: of the hip and foot ((+) ulcer over the right heel area - no active discharge noted) Left lower extremity: hip/thigh Details: tenderness Location: of the hip Assessment and Plan Assessment & Plan (1) Ulcer of right heel: Code(s): L97.419 - Non-pressure chronic ulcer of right heel and midfoot with unspecified severity Qualifiers: Non-pressure ulcer stage: unspecified non-pressure ulcer stage Qualified Code(s): L97.419 - Non-pressure chronic ulcer of right heel and midfoot with unspecified severity Plan: Will refer him to the wound clinic [facility] for further management of his right heel ulcer, as patient is a diabetic and due to his psychiatric and cognitive issues, he is unlikely going to be able to manage his heel ulcer adequately on his own (2) Diabetes mellitus: Code(s): E11.9 - Type 2 diabetes mellitus without complications Qualifiers: Diabetes mellitus type: type 2 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 goal is <? 7.0% Reinforced diabetic diet Continue Ozempic 0.5 mg SQ once a week and Lantus 48 units once a day; he is also Novolog 3 times a day with meals per sliding scale but states that he has not needed to take his rapid-acting insulin in a while now as his blood sugars have consistently remained controlled over the past several weeks Follow up with [facility] Endocrinology as scheduled (3) Pure hypercholesterolemia: Code(s): E78.00 - Pure hypercholesterolemia, unspecified Plan: Patient again has not gotten any follow up labs done recently; we will try to see if we can get copies of his labs done at [facility] during his last admission there last month sent over for review and documentation Reinforced low cholesterol diet Continue Atorvastatin 10 mg QD Will recheck his labs and fasting lipids in 3 months for follow up (4) Benign essential hypertension: Code(s): I10 - Essential (primary) hypertension Plan: Reinforced low-sodium diet -? goal is systolic BP of 120 mm or less Continue Lisinopril 5 mg QD and Metoprolol 50 mg BID (5) Myelodysplastic syndrome with excess blasts: Comment: diagnosed by bone marrow biopsy on 06/05/2023 at [facility]. Patient declined treatment but agrees to monthly CBC monitoring. He also does NOT want blood product transfusions because it is against his beliefs - he is NOT a Druze but he shares the belief about not wanting someone else's blood in his body Code(s): D46.20 - Refractory anemia with excess of blasts, unspecified Plan: Work ups done at [facility] last month revealed a newly-diagnosed MDS but patient declined to continue with their investigation and has also declined treatments as well as any potential blood transfusions, citing that this is against his filiberto (patient is NOT a Druze) States that he is tired of going for all these never-ending tests and lab draws as the main reasons for his refusal of treatment even though everything was explained to him in clear detail by hematology-oncology at [facility] last month, including the potential dangers and outcomes, including , of non- treatment but patient remains adamant in his refusal for treatment He has been advised that he can return to see them at any time if he changes his mind on this (6) Renal cell carcinoma of right kidney: Comment: 06/25 1.6 cm lesion right kidney Code(s): C64.1 - Malignant neoplasm of right kidney, except renal pelvis Plan: Repeat MRI in April 2022 revealed STABLE heterogeneously enhancing lesion at the posterior upper pole of the right kidney under 2 cm; no adenopathy noted - findings are mostly unchanged when compared to MRI done in October 2021 Has been recommended by urology to continue observation although they have r eminded patient that he may still require cryotherapy at some point if his condition changes Follow up with urology as scheduled for continuing surveillance and management (7) Acquired hypothyroidism: Code(s): E03.9 - Hypothyroidism, unspecified Plan: Continue Levothyroxine 50 mcg QD Will continue to monitor his TFTs regularly (8) Obstructive sleep apnea: Comment: Clinically I suspect that he may have JUANITA , but he smart enough to sense about what I am talking about and says he does not have JUANITA . Also says , he would not be able to use CPAP mask even if he has JUANITA , So no sense in doing a Sleep study . Code(s): G47.33 - Obstructive sleep apnea (adult) (pediatric) Plan: Follow up with pulmonary as scheduled Patient continues to feel that he does NOT have JUANITA and does not wish to get this checked out further (9) Hypomagnesemia: Code(s): E83.42 - Hypomagnesemia Plan: Corrected on his most recent follow up labs done last year - continue Magnesium Oxide 400 mg QD (10) Constipation: Code(s): K59.00 - Constipation, unspecified Qualifiers: Constipation type: unspecified constipation type Qualified Code(s): K59.00 - Constipation, unspecified Plan: Encouraged again on increased oral fluids and dietary fiber Continue Docusate 200 mg BID PRN and Senna 8.6 mg Q HS (Rx refilled); may take Lactulose 15 ml Q HS PRN if he has no bowel movement in 2 to 3 days despite his routine stool softeners (11) Facet arthritis of lumbar region: Code(s): M47.816 - Spondylosis without myelopathy or radiculopathy, lumbar region Plan: X-rays of the lumbar spine done back in 2016 revealed (+) multilevel facet arthritis Repeat lumbar spine x-rays done in September 2022 revealed the same - has lower thoracic and lumbar spine spondylosis and arthritis MRI of the lumbar spine done back in March 2023 revealed (+) multilevel degenerative disc disease, facet arthritis and spinal stenosis but no significant nerve root impingement were seen He has been referred by Dr. Henley to pain management for further evaluation of his low back pain Reinforced activity and weight-lifting restrictions to avoid aggravating his low back pain Continue Tizanidine 4 mg Q HS PRN and Lidocaine patches QD PRN (12) Osteoarthritis of hips, bilateral: Code(s): M16.0 - Bilateral primary osteoarthritis of hip Qualifiers: Osteoarthritis type: primary Qualified Code(s): M16.0 - Bilateral primary osteoarthritis of hip Plan: X-rays of both hips done in 2022 revealed (+) moderate to severe bilateral hip osteoarthritis He was referred to orthopedics for further evaluation of his hip issues and was scheduled to be seen on 11/14/22 but patient cancelled his appt as he did not want to go to orthopedics at the time and he has not rescheduled his appt since - states that he has been able to manage his hip pains so far Continue Acetaminophen 500 mg Q 6 hours PRN for pain (13) Impacted cerumen of both ears: Code(s): H61.23 - Impacted cerumen, bilateral Plan: Per request, will refer him to ENT for further management (14) Anxiety: Code(s): F41.9 - Anxiety disorder, unspecified Plan: Continue Clonazepam 0.5 mg twice a day as needed (15) Schizophrenia: Code(s): F20.9 - Schizophrenia, unspecified Qualifiers: Schizophrenia type: unspecified Qualified Code(s): F20.9 - Schizophrenia, unspecified Plan: Continue Perphenazine 8 mg 1 tablet 3 times a day (at 8 am, 2 pm and at bedtime) and Perphenazine 4 mg tablet 1 tablet daily at 8 am and 2 mg tablet 1 tablet daily at 2 pm Is also on Trazodone at 200 mg Q HS Follow-up with Psychiatry as scheduled (16) Smoker: Comment: COUNSELED TO QUIT SMOKING. 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 Code(s): F17.200 - Nicotine dependence, unspecified, uncomplicated Plan: States that he has quit cigarettes and now just smokes cigars occasionally - counseled again on smoking cessation (applies to ALL tobacco products) (17) Obesity (BMI 30-39.9): Code(s): E66.9 - Obesity, unspecified Plan: Reinforced diet/exercise as tolerated/lose weight Plan Follow up in 3 months Orders: Orders Thyroid Stimulating Hormone 3 Months E03.9 - Hypothyroidism, unspecified Lipid Panel 3 Months E78.00 - Pure hypercholesterolemia, unspecified Complete Blood Count Auto Diff 3 Months D64.9 - Anemia, unspecified, D46.20 - Refractory anemia with excess of blasts, unspecified Comprehensive Crocker. Panel Fast 3 Months E78.00 - Pure hypercholesterolemia, unspecified Free T4 (Free Thyroxine) 3 Months E03.9 - Hypothyroidism, unspecified Vitamin D 25-OH Total 3 Months E55.9 - Vitamin D deficiency, unspecified UA CC w/rflx Micro + Cult 3 Months R30.0 - Dysuria Microalbumin, Random (w Creat) 3 Months E11.9 - Type 2 diabetes mellitus without complications Hemoglobin A1c 3 Months E11.9 - Type 2 diabetes mellitus without complications Vitamin B12 and Folate 3 Months E53.8 - Deficiency of other specified B group vitamins Referrals Wound Care Referral L97.419 - Non-pressure chronic ulcer of right heel and midfoot with unspecified severity, E11.9 - Type 2 diabetes mellitus without complications Ear/Nose/Throat Referral H61.23 - Impacted cerumen, bilateral Medications: New pantoprazole 40 mg PO DAILY 30 tabs 5RF 30 days sennosides (Senna Lax) 8.6 mg PO BEDTIME Changed From aspirin 1 tab PO QAM 90 days 90 tabs 3RF To aspirin 81 mg PO QAM Coding Level of Care Code Est Pt Level 4 (79491) Diagnoses Heel ulceration, right, with unspecified severity L97.419 Non-pressure ulcer stage: unspecified non-pressure ulcer stage Type 2 diabetes mellitus without complication, with long-term current use of insulin E11.9; Z79.4 Diabetes mellitus type: type 2 Diabetes mellitus prison insulin use: with prison use Diabetes mellitus complication status: without complication Pure hypercholesterolemia E78.00 Benign essential hypertension I10 Myelodysplastic syndrome with excess blasts D46.20 Renal cell carcinoma of right kidney C64.1 Acquired hypothyroidism E03.9 Obstructive sleep apnea G47.33 Hypomagnesemia E83.42 Constipation, unspecified constipation type K59.00 Constipation type: unspecified constipation type Facet arthritis of lumbar region M47.816 Primary osteoarthritis of both hips M16.0 Osteoarthritis type: primary Impacted cerumen of both ears H61.23 Anxiety F41.9 Schizophrenia, unspecified type F20.9 Schizophrenia type: unspecified Smoker F17.200 Obesity (BMI 30-39.9) E66.9
== END 2023-07-13 14:10 | disposition home or self-care (01) ==
PROVIDERS: PCP Internal Medicine; Visit Provider Internal Medicine
DX: E11.622 Type 2 diabetes mellitus with other skin ulcer (principal); D46.20 Refractory anemia with excess of blasts, unspecified; Z79.4 Long term (current) use of insulin; L97.419 Non-pressure chronic ulcer of right heel and midfoot with unspecified severity; F20.9 Schizophrenia, unspecified; C64.1 Malignant neoplasm of right kidney, except renal pelvis; E78.00 Pure hypercholesterolemia, unspecified; I10 Essential (primary) hypertension; E03.9 Hypothyroidism, unspecified; G47.33 Obstructive sleep apnea (adult) (pediatric); E83.42 Hypomagnesemia; K59.00 Constipation, unspecified
CPT/HCPCS: 99214

== ENCOUNTER 2023-07-22 10:47 | Outpatient (RCR) | payer OTHER, SELFPAY | END 2023-08-10 11:51 | disposition home or self-care (01) | LOC: HO.WCC 10:47 | PROVIDERS: PCP Internal Medicine; Visit Provider Surgery | DX: L89.610 Pressure ulcer of right heel, unstageable (principal) | CPT/HCPCS: 99212; 99213 ==

== ENCOUNTER 2023-08-25 11:04 | Emergency (ER) | payer OTHER, SELFPAY ==
[2023-08-25 11:35] VITALS: BP 135/66; PULSE 97; RESP 16; TEMP 36.1; O2SAT 97; BMI 30.2
--- NOTE | 2023-08-25 11:36 | ED_ITS ---
HPI - General Adult General Chief complaint: General Medical Stated complaint: Sore throat Time Seen by Provider: 08/25/23 12:32 Source: patient Mode of arrival: ambulatory History of Present Illness HPI narrative: 58 year old male with a complex past medical history including HOCM, JUANITA, schizophrenia, and diabetes presents emergency department with complaints of a 3 day history of sore throat. He reports he has had strep throat in the past and believes that he has this at this time. Reports pain with swallowing but denies any difficulty tolerating secretions or change in phonation. He denies any recent illness, known sick contacts, fever, chills. Pertinent positives and negatives discussed in HPI Related Data Home Medications ?Medication ?Instructions ?Recorded ?Confirmed blood sugar diagnostic #10 ea 03/15/20 07/13/23 lancets 28 gauge #100 ea 03/15/20 07/13/23 perphenazine 8 mg tablet 8 mg PO TID 02/26/22 07/13/23 bismuth subsalicylate 525 mg/15 mL 525 mg PO DAILY PRN INDEGESTION 04/29/22 07/13/23 oral suspension clonazepam 0.5 mg tablet (Klonopin) 0.5 mg PO BID 04/06/23 07/13/23 perphenazine 4 mg tablet 4 mg PO TID 04/06/23 07/13/23 aspirin 81 mg chewable tablet 81 mg PO QAM 07/13/23 sennosides 8.6 mg tablet (Senna 8.6 mg PO BEDTIME 07/13/23 07/13/23 Lax) Previous Rx's ?Medication ?Instructions ?Recorded pen needle, diabetic 31 gauge x #1,200 ea 03/12/21/16 QUAD CANE #1 ea 07/31/21 trazodone 50 mg tablet 150 mg (3 x 50 mg) PO BEDTIME 30 05/09/22 days #90 tabs acetaminophen 500 mg tablet 500 mg PO Q6H PRN fever or pain 30 01/01/23 (Tylenol Extra Strength) days #120 tabs magnesium oxide 400 mg PO DAILY 30 days #30 tabs 01/09/23 ibuprofen 600 mg tablet 600 mg PO TID PRN for pain #90 tabs 01/28/23 pen needle, diabetic 33 gauge x #100 ea 02/02/2305/07 (Comfort EZ Pen [place]) Grab bar #2 ea 02/03/23 CANE (regular) #1 ea 02/11/23 insulin glargine 100 unit/mL (3 48 unit (0.48 mL) subcut DAILY #15 02/13/23 mL) subcutaneous pen (Lantus mL Solostar U-100 Insulin) lactulose 10 gram/15 mL oral 15 ml PO BEDTIME PRN severe 03/30/23 solution constipation #237 mL cholecalciferol (vitamin D3) 25 25 mcg PO DAILY #30 tabs 05/07/23 mcg (1,000 unit) tablet (Vitamin D3) metoprolol tartrate 50 mg tablet 50 mg PO BID #180 tabs 05/12/23 lisinopril 5 mg tablet 5 mg PO DAILY #90 tabs 05/13/23 famotidine 20 mg tablet 40 mg (2 x 20 mg) PO BID 30 days 05/18/23 #120 tabs semaglutide 0.25 mg or 0.5 mg (2 0.5 mg (0.736 mL) subcut QWEEK #3 06/30/23 mg/3 mL) subcutaneous pen injector mL (Ozempic) desmopressin 0.1 mg tablet 0.2 mg (2 x 0.1 mg) PO BEDTIME #90 07/01/23 tabs naproxen 250 mg tablet 250 mg PO Q8-12H PRN pain (scale 07/04/23 score 4-6) #14 tabs multivitamin 1 tab PO DAILY #90 tabs 07/07/23 tizanidine 4 mg tablet 4 mg PO BEDTIME for low back pain 07/10/23 #30 tabs pantoprazole 40 mg tablet,delayed 40 mg PO DAILY 30 days #30 tabs 07/13/23 release levothyroxine 50 mcg tablet 50 mcg PO QAM #90 tabs 07/14/23 atorvastatin 10 mg tablet 10 mg PO BEDTIME #90 tabs 07/15/23 docusate sodium 100 mg capsule 200 mg (2 x 100 mg) PO BID 30 days 08/17/23 #120 caps Allergies Allergy/AdvReac Type Severity Reaction Status Date / Time clozapine [From Clozaril] Allergy Mild ringing in Verified 08/25/23 11:37 ears, pain, leukopenia trifluoperazine Allergy Tongue Verified 08/25/23 11:37 [From Stelazine] Swelling Review of Systems Review of Systems: Yes all other systems are reviewed and are negative [facility] Past Medical History Medical History (Updated 08/25/23 @ 12:57 by Gisela Johnson NP) Myelodysplastic syndrome with excess blasts Facet arthritis of lumbar region Thrombocytopenia Hypomagnesemia Obesity (BMI 30-39.9) On beta evaristo at home Lung nodule Screening for STD (sexually transmitted disease) Obesity (BMI 30-39.9) Smoker Schizophrenia Nocturnal enuresis Anxiety Midline low back pain Acquired hypothyroidism GERD without esophagitis Constipation Pure hypercholesterolemia Benign essential hypertension Diabetes mellitus Obstructive sleep apnea Dyspnea Obesity (BMI 35.0-39.9 without comorbidity) Nicotine dependence, cigarettes, uncomplicated Schizoaffective disorder Insulin dependent diabetes mellitus Hypothyroidism Hypertension, essential Hyperlipidemia Surgical History H/O colonoscopy (~10/12/20) Hx of facial fracture repair History of left inguinal hernia repair Family History Family History Father CVD (cardiovascular disease) Mother CVD (cardiovascular disease) Diabetes Sister Colon polyps Social History Social History Household Members: Other Household Members Other:: lives in a supported apartment problem Housing: Apartment Housing Other:: lives in a supported apartment problem Do you presently have visiting nurse or other home services: No Alcohol intake: former Patient Tobacco Use Status: Current someday Tobacco user Tobacco use type: Cigarette and Cigar Cigarette Packs Per Day: 0.75 Cigarettes Per Day: 40 Years Smoked: 30 e-Cigarette/Vaping Use: Never Used Second Hand Smoke Exposure: No Advance Directives: No Advance Directives Information Provided: Yes service: No Current occupational status: disabled Sexual orientation: Straight/Heterosexual Cognitive needs: No Hearing needs: No Vision needs: No Physical Exam ED Vital Signs: Vital Signs - 24 hr 08/25/23 11:35 08/25/23 13:03 Temperature 97 F 97.4 F Pulse Rate 97 90 Respiratory Rate 16 16 Blood Pressure 135/66 135/60 Pulse Oximetry 97 99 Oxygen Delivery Method Room Air Room Air BMI result Body Mass Index 30.2 Nursing notes and vital signs reviewed. GENERAL APPEARANCE: A&0 x 4, generally well appearing, no acute distress HENMT: Normal to inspection, atraumatic, face symmetrical. Normal external ears, nose, and oropharynx clear with no evidence exudate or erythema. EYE: PERRLA, EOM intact, structures appear normal NECK: Supple without stiffness or restricted ROM. HEART: Normal rate and regular rhythm, normal S1/S2, no M/R/G LUNGS: LS CTA, moving air well. Able to speak in complete sentences. No crackles, wheezes, or rhonchi auscultated BACK: No CVAT, no obvious deformity EXTREMITIES: Moving all extremities without difficulty. Normal capillary refill. NEUROLOGICAL: Alert and oriented, moving all 4 extremities with equal strength. CN not formally tested but appearing grossly intact. Observed to ambulate with normal gait. Cognition normal SKIN: Warm and dry without any lesions, rash, or visible sores Course Course Course Narrative: This is an RME: Additional HPI, ROS, PE not included below will be deferred to primary provider. This is a [id number], with a hx of Myelodysplastic syndrome, hypothyroidism, HTN, HLD, schizoaffective disorder, who presents to the emergency room for or throat and slight cough times 3-4 days. He is able to eat and drink reports worsening pain. Vital signs within normal limits. Speaking full sentences. Plan: Strep, viral swabs Medical Decision Making Medical Decision Making MDM Narrative: Old records reviewed for previous imaging, lab studies, ECGs, and notes. Patient was assessed the emergency department with no acute distress or toxicity noted. Serology negative for COVID, flu, RSV, and rapid strep. Patient's physical exam does not show evidence of acute pharyngitis his oropharynx clear without exudate or erythema. Patient educated to use [id number] lozenges in addition to increasing fluid intake to prevent dehydration. Patient is safe for discharge at this time with plan for [id number] Tylenol and/or NSAID such as ibuprofen or naproxen for fever/discomfort with dosing as per packaging. HPI, PE, diagnostics, and plan discussed with patient and family with no unanswered questions at this time. Strict return precautions given to return to the emergency department with new, worsening, or concerning emergent symptoms. Recommended to follow-up with there primary care provider in 24-48 hours for further treatment and management. Differential Diagnosis Differential Diagnoses: The differential diagnosis associated with the presentation includes But not limited to pharyngitis, tonsillitis, SPIN TANK TENDER, abscess, Mihai's angina, angioedema, sepsis, malignancy Lab Data MDM Lab Attestation statement: I reviewed the patient's lab results. Labs: Lab Results 08/25/23 Range/Units 11:23 Influenza Type A (PCR) NEGATIVE (Negative) Influenza Type B (PCR) NEGATIVE (Negative) RSV RNA Qual (PCR) NEGATIVE (Negative) SARS-CoV-2 RNA (RT-PCR) NEGATIVE (Negative) S. pyogenes GrpA REGI Negative (Negative) Prescription Management I considered prescription management with: Antibiotic Or considered but no evidence of bacterial infection was identified Chronic Conditions Patient?s care impacted by: Diabetes and Hypertension Discharge Plan Discharge Clinical Impression: Acute sore throat, Acute viral syndrome Patient Disposition: Home, Self-Care Instructions: Upper Respiratory Infection (ED), Viral Syndrome (ED) Additional Instructions: Your seen in the emergency department for concerns of sore throat. Your nasal swab was negative for Covid, Flu and RSV. Your throat swab was negative for strep throat and your physical exam was not consistent with strep pharyngitis. Your symptoms are most likely due to a virus is recommended that you increase your fluid intake to prevent dehydration. You are safe for discharge at this time with plan for management of fever or discomfort with [id number] Tylenol and/or NSAID such as ibuprofen or naproxen with dosing as per packaging. Please return to the emergency department with new, worsening, or concerning emergent symptoms. Recommended to follow-up with your primary care provider in 24-48 hours for further treatment and management. Thank you for choosing [facility]. Prescriptions: No Action (DME) pen needle, diabetic 31 gauge x 5/16 needle See Rx Instructions .ROUTE .MEDSUPPLY Qty: 1200 0RF Rx Instructions: Use 4 times daily magnesium oxide 400 mg magnesium tablet 400 mg PO DAILY 30 Days Qty: 30 3RF ibuprofen 600 mg tablet 600 mg PO TID PRN (Reason: for pain) Qty: 90 0RF (DME) Comfort EZ Pen [place] 33 gauge x 1/4 needle See Rx Instructions .ROUTE .MEDSUPPLY Qty: 100 12RF Rx Instructions: As directed (DME) Grab bar Misc See Rx Instructions .Route Qty: 2 0RF Rx Instructions: As directed insulin glargine [Lantus Solostar U-100 Insulin] 100 unit/mL (3 mL) insulin pen 48 unit subcut DAILY Qty: 15 5RF lactulose 10 gram/15 mL solution 15 ml PO BEDTIME PRN (Reason: severe constipation) Qty: 237 1RF Rx Instructions: Take only for severe constipation that is not relieved with routine stool softeners cholecalciferol (vitamin D3) [Vitamin D3] 25 mcg (1,000 unit) tablet 25 mcg PO DAILY Qty: 30 3RF metoprolol tartrate 50 mg tablet 50 mg PO BID Qty: 180 1RF lisinopril 5 mg tablet 5 mg PO DAILY Qty: 90 0RF famotidine 20 mg tablet 40 mg PO BID 30 Days Qty: 120 5RF Ozempic 0.25 mg or 0.5 mg (2 mg/3 mL) pen injector 0.5 mg subcut QWEEK Qty: 3 2RF desmopressin 0.1 mg tablet 0.2 mg PO BEDTIME Qty: 90 1RF multivitamin Tablet 1 tab PO DAILY Qty: 90 2RF tizanidine 4 mg tablet 4 mg PO BEDTIME Qty: 30 1RF levothyroxine 50 mcg tablet 50 mcg PO QAM Qty: 90 3RF atorvastatin 10 mg tablet 10 mg PO BEDTIME Qty: 90 0RF docusate sodium 100 mg capsule 200 mg PO BID 30 Days Qty: 120 0RF bismuth subsalicylate 525 mg/15 mL Suspension 525 mg PO DAILY PRN (Reason: INDEGESTION) Rx Instructions: do not exceed 8 doses in a 24 hour period trazodone 50 mg Tablet 150 mg PO BEDTIME 30 Days Qty: 90 0RF perphenazine 4 mg tablet 4 mg PO TID perphenazine 8 mg tablet 8 mg PO TID naproxen 250 mg tablet 250 mg PO Q8-12H PRN (Reason: pain (scale score 4-6)) Qty: 14 0RF (DME) QUAD CANE See Rx Instructions .Route .MEDSUPPLY Qty: 1 0RF Rx Instructions: As directed acetaminophen [Tylenol Extra Strength] 500 mg tablet 500 mg PO Q6H PRN (Reason: fever or pain) 30 Days Qty: 120 3RF Rx Instructions: maximum of 4 tablets per day (DME) CANE (regular) See Rx Instructions .Route .MEDSUPPLY Qty: 1 0RF Rx Instructions: As directed aspirin 81 mg tablet,chewable 81 mg PO QAM sennosides [Senna Lax] 8.6 mg tablet 8.6 mg PO BEDTIME pantoprazole 40 mg tablet,delayed release (DR/EC) 40 mg PO DAILY 30 Days Qty: 30 5RF (DME) blood sugar diagnostic Strip See Rx Instructions Not Applicable .MEDSUPPLY Qty: 10 Rx Instructions: As directed (DME) lancets 28 gauge misc See Rx Instructions topical .MEDSUPPLY Qty: 100 Rx Instructions: As directed clonazepam [Klonopin] 0.5 mg tablet 0.5 mg PO BID Referrals: Mando Turpin MD [Primary Care Provider] - Interventions: ED Discharge Assessment Last Done: 08/25/23 13:03 Discharge Date/Time: 08/25/23 13:05 Print Language: Hungarian
[2023-08-25 11:41] LABS: IDNOW Serial# 08D9AD1C; Strep A Nucleic Acid Negative (Negative)
[2023-08-25 12:36] LABS: Influenza A PCR NEGATIVE (Negative); Influenza B PCR NEGATIVE (Negative); Resp Syncy Virus RNA Qual PCR NEGATIVE (Negative); SARS COV2 PCR INHOUSE NEGATIVE (Negative)
[2023-08-25 13:03] VITALS: BP 135/60; PULSE 90; RESP 16; TEMP 36.3; O2SAT 99
== END 2023-08-25 13:05 | disposition home or self-care (01) ==
PROVIDERS: Emergency Provider Emergency Medicine; PCP Internal Medicine
DX: J02.9 Acute pharyngitis, unspecified (principal); B34.9 Viral infection, unspecified; E11.9 Type 2 diabetes mellitus without complications; I10 Essential (primary) hypertension; E78.00 Pure hypercholesterolemia, unspecified; F17.210 Nicotine dependence, cigarettes, uncomplicated; Z79.82 Long term (current) use of aspirin; Z79.899 Other long term (current) drug therapy; Z79.4 Long term (current) use of insulin; Z79.02 Long term (current) use of antithrombotics/antiplatelets; Z03.818 Encounter for observation for suspected exposure to other biological agents ruled out
CPT/HCPCS: 0241U; 87651; 99282; 99283

== ENCOUNTER 2023-09-04 12:50 | Outpatient (AMB) | payer MEDICARE, MEDICAID, SELFPAY ==
--- NOTE | 2023-09-04 12:59 | MHC.PC.OV ---
Vital Signs 09/04/23 13:01 Height 5 ft 10 in Weight 204 lb 2 oz BMI 29.3 BP 120/66 Blood Pressure Location Lt brachial Position Sitting Pulse 108 H Pulse Source Pulse Oximeter Pulse Oximetry (%) 98 Oxygen Delivery Method Room Air Intake Visit Reasons: 08/24 [facility] sore throat Intake Note: Patient is here to follow-up after a visit the emergency department at [facility] on 08/25/23. Pt complaining of ear and throat pain for a week. Requesting for possible palliative care and request for shower chair. Vendor Management Consultant Required: No Manager Activities: Present Accompanied by: Staff Allergies clozapine [From Clozaril] Allergy (Mild, Verified 09/04/23 13:33) ringing in ears, pain, leukopenia trifluoperazine [From Stelazine] Allergy (Verified 09/04/23 13:33) Tongue Swelling Medication List - Last Reconciled 09/04/23 by Mando Turpin MD acetaminophen (Tylenol Extra Strength) 500 mg PO Q6H PRN 30 days aspirin 81 mg PO QAM atorvastatin 10 mg PO BEDTIME bismuth subsalicylate 525 mg PO DAILY PRN blood sugar diagnostic As directed [CANE (regular) As directed] cholecalciferol (vitamin D3) (Vitamin D3) 25 mcg PO DAILY clonazepam (Klonopin) 0.5 mg PO BID desmopressin 0.2 mg (2 x 0.1 mg) PO BEDTIME dextromethorphan-guaifenesin 10-100 mg/5 mL (Tussin DM Clear) 10 mL PO Q4-6H PRN docusate sodium 200 mg (2 x 100 mg) PO BID 30 days famotidine 40 mg (2 x 20 mg) PO BID 30 days Grab bar As directed ibuprofen 600 mg PO TID PRN insulin glargine (Lantus Solostar U-100 Insulin) 48 units (0.48 mL) subcut DAILY lactulose 15 mL PO BEDTIME PRN lancets As directed levothyroxine 50 mcg PO QAM lisinopril 5 mg PO DAILY magnesium oxide 400 mg PO DAILY 30 days metoprolol tartrate 50 mg PO BID multivitamin 1 tab PO DAILY naproxen 250 mg PO Q8-12H PRN pantoprazole 40 mg PO DAILY 30 days pen needle, diabetic Use 4 times daily pen needle, diabetic (Comfort EZ Pen [place]) As directed perphenazine 8 mg PO TID perphenazine 4 mg PO TID [QUAD CANE As directed] semaglutide (Ozempic) 0.5 mg (0.736 mL) subcut QWEEK sennosides (Senna Lax) 8.6 mg PO BEDTIME tizanidine 4 mg PO BEDTIME trazodone 150 mg (3 x 50 mg) PO BEDTIME 30 days Tobacco use date assessed: 09/04/23 Dental Screening Dental Screen Date: 07/13/23 HPI 08/24 [facility] sore throat HPI Details Patient comes in today for his HDF follow up visit He went to the ER last week for increasing sore throat x 3 days He tested negative for strep throat; was also negative for COVID, flu or RSv when he was checked at the ER, and was discharged home with instructions to just take OTC cough/cold meds PRN for symptomatic relief States that he continues to experience increased sore throat, which has persisted from last week Also relates (+) some nasal congestion but he denies any fever, headaches or dizziness Denies any chest pains, no SOB No nausea/vomiting, no abdominal pain No change in bowel habits noted His fci is also requesting for a referral to palliative care for the patient, as well as an Rx for a shower chair, which patient declined - states his problem is mostly with the drainage in his shower and he does not need the use of a shower chair [facility] Medical History Myelodysplastic syndrome with excess blasts Facet arthritis of lumbar region Thrombocytopenia Hypomagnesemia Obesity (BMI 30-39.9) On beta evaristo at home Lung nodule Screening for STD (sexually transmitted disease) Obesity (BMI 30-39.9) Smoker Schizophrenia Nocturnal enuresis Anxiety Midline low back pain Acquired hypothyroidism GERD without esophagitis Constipation Pure hypercholesterolemia Benign essential hypertension Diabetes mellitus Obstructive sleep apnea Dyspnea Obesity (BMI 35.0-39.9 without comorbidity) Nicotine dependence, cigarettes, uncomplicated Schizoaffective disorder Insulin dependent diabetes mellitus Hypothyroidism Hypertension, essential Hyperlipidemia Surgical History H/O colonoscopy (~10/12/20) Hx of facial fracture repair History of left inguinal hernia repair Family History Father CVD (cardiovascular disease) Mother CVD (cardiovascular disease) Diabetes Sister Colon polyps Social History Household Members: Other Household Members Other:: lives in a supported apartment problem Housing: Apartment Housing Other:: lives in a supported apartment problem Do you presently have visiting nurse or other home services: No Alcohol intake: former Patient Tobacco Use Status: Current someday Tobacco user Tobacco use type: Cigarette and Cigar Cigarette Packs Per Day: 0.75 Cigarettes Per Day: 40 Years Smoked: 30 e-Cigarette/Vaping Use: Never Used Second Hand Smoke Exposure: No service: No Current occupational status: disabled Sexual orientation: Straight/Heterosexual Cognitive needs: No Hearing needs: No Vision needs: No Questionnaire Thrive Questionnaire Date Thrive assessed: 07/13/23 MARCY-7 AMB Questionnaire MARCY-7 Date MARCY - 7 assessed: 07/13/23 Source: Developed by Drs. Jaleel Shaffer, Sindy Vance, Ankit Yang and colleagues, with an educational riana from [employer]. Review of Systems Const Denies chills, Reports fatigue, Denies fever(s) and Denies headache(s) ENT Denies dysphagia, Denies dizziness, Denies otalgia, Denies headache(s), Reports nasal congestion, Denies neck pain, Denies odynophagia and Reports sore throat (increased for over a week) Card Denies chest pain, Denies rapid heart rate, Denies irregular heart rhythm, Denies palpitations and Denies dyspnea Resp Denies cough, Denies dyspnea and Denies wheezing GI Denies abdominal pain, Denies constipation, Denies dysphagia, Denies heartburn, Denies diarrhea, Denies nausea, Denies odynophagia and Denies vomiting Denies difficulty urinating, Denies dysuria and Denies urinary frequency Musc Reports back pain (on and off; worse at night), Reports arthralgias (over both hips; on and off in the hands and knees) and Denies neck pain Skin/Breast Denies rash and Reports skin ulcer (over the right heel x few weeks now) Neuro Denies dizziness, Denies headache(s) and Denies paresthesias Endo Reports fatigue and Denies palpitations Aller/Immun Denies wheezing Physical exam (Primary Care) Vital Signs: Last Vital Signs Pulse 108 H 09/04/23 13:01 BP 120/66 09/04/23 13:01 Pulse Ox 98 09/04/23 13:01 Oxygen Delivery Method Room Air 09/04/23 13:01 BMI result Body Mass Index 29.3 Tobacco/Smoking Status: Tobacco use Status Tobacco use date assessed 09/04/23 09/04/23 13:08 Patient Tobacco Use Status Current someday Tobacco 09/04/23 13:08 Tobacco use type Cigarette,Cigar 09/04/23 13:08 e-Cigarette/Vaping Use Never Used 09/04/23 13:08 Thrive Assessment: Date of Thrive Assessment Date Thrive assessed 07/13/23 09/04/23 13:08 Const General: no acute distress and alert HENMT Ears: TM's normal bilaterally and EAC's normal Throat: Yes abnormal tonsil ((+) mild TP congestion) and Yes posterior oropharynx abnormal (increased erythema) Neck Neck: Yes no lymphadenopathy and Yes supple Thyroid: Thyroid normal Resp Auscultation: clear to auscultation bilaterally, no rales and no wheezes Cardio Rate: regular rate Rhythm: regular rhythm Heart sounds: no murmurs GI Palpation (GI): Soft to palpation and nontender Auscultation: normal bowel sounds General: Yes no CVA tenderness Back/Spine/Pelvis Back: no CVA tenderness Thoracic/Lumbar Spine: lumbar spinal tenderness Skin Rashes: no rashes Extrem General: Yes no clubbing, cyanosis or edema Right lower extremity: hip/thigh Details: tenderness Location: of the hip and foot ((+) ulcer over the right heel area - no active discharge noted) Left lower extremity: hip/thigh Details: tenderness Location: of the hip Assessment and Plan Assessment & Plan (1) Acute pharyngitis: Code(s): J02.9 - Acute pharyngitis, unspecified Qualifiers: Pharyngitis/tonsillitis etiology: unspecified etiology Qualified Code(s): J02.9 - Acute pharyngitis, unspecified Plan: Will start patient empirically on Augmentin 875 mg BID x 10 days (2) Myelodysplastic syndrome with excess blasts: Comment: diagnosed by bone marrow biopsy on 06/05/2023 at [facility]. Patient declined treatment but agrees to monthly CBC monitoring. He also does NOT want blood product transfusions because it is against his beliefs - he is NOT a Oriental orthodox but he shares the belief about not wanting someone else's blood in his body Code(s): D46.20 - Refractory anemia with excess of blasts, unspecified Plan: Work ups done at [facility] back in June 2023 revealed (+) newly-diagnosed MDS but patient declined further work ups and has also declined treatments as well as any potential blood transfusions, citing that this is against his filiberto (patient is NOT a Oriental orthodox) States that he is tired of going for all these never-ending tests and lab draws as the main reasons for his refusal of treatment even though everything was explained to him in clear detail by hematology-oncology at [facility] back then, including the potential dangers and outcomes (including ) of non-treatment but patient remains adamant in his refusal for treatment and continues to do so He has been advised that he can return to see them at any time if he changes his mind on this Per fci request, will refer him to hospice for evaluation and consideration for palliative care (3) Renal cell carcinoma of right kidney: Comment: 06/25 1.6 cm lesion right kidney Code(s): C64.1 - Malignant neoplasm of right kidney, except renal pelvis Plan: Repeat MRI in April 2022 revealed STABLE heterogeneously enhancing lesion at the posterior upper pole of the right kidney under 2 cm; no adenopathy noted - findings are mostly unchanged when compared to MRI done in October 2021 Has been recommended by urology to continue observation although they have reminded patient that he may still require cryotherapy at some point if his condition changes Follow up with urology as scheduled for continuing surveillance and management (4) Diabetes mellitus: Code(s): E11.9 - Type 2 diabetes mellitus without complications Qualifiers: Diabetes mellitus type: type 2 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 goal is <? 7.0% Reinforced diabetic diet Continue Ozempic 0.5 mg SQ once a week and Lantus 48 units once a day; he is also Novolog 3 times a day with meals per sliding scale but states that he has not needed to take his rapid-acting insulin in a while now as his blood sugars have consistently remained controlled over the past several weeks Follow up with [facility] Endocrinology as scheduled (5) Pure hypercholesterolemia: Code(s): E78.00 - Pure hypercholesterolemia, unspecified Plan: Reinforced low cholesterol diet Continue Atorvastatin 10 mg QD Will recheck his labs and fasting lipids as scheduled in 2 months for follow up (6) Benign essential hypertension: Code(s): I10 - Essential (primary) hypertension Plan: Reinforced low-sodium diet -? goal is systolic BP of 120 mm or less Continue Lisinopril 5 mg QD and Metoprolol 50 mg BID (7) Acquired hypothyroidism: Code(s): E03.9 - Hypothyroidism, unspecified Plan: Continue Levothyroxine 50 mcg QD Will continue to monitor his TFTs regularly (8) Obstructive sleep apnea: Comment: Clinically I suspect that he may have JUANITA , but he smart enough to sense about what I am talking about and says he does not have JUANITA . Also says , he would not be able to use CPAP mask even if he has JUANITA , So no sense in doing a Sleep study . Code(s): G47.33 - Obstructive sleep apnea (adult) (pediatric) Plan: Follow up with pulmonary as scheduled Patient continues to feel that he does NOT have JUANITA and does not wish to get this checked out further (9) Anxiety: Code(s): F41.9 - Anxiety disorder, unspecified Plan: Continue Clonazepam 0.5 mg twice a day as needed (10) Schizophrenia: Code(s): F20.9 - Schizophrenia, unspecified Qualifiers: Schizophrenia type: unspecified Qualified Code(s): F20.9 - Schizophrenia, unspecified Plan: Continue Perphenazine 8 mg 1 tablet 3 times a day (at 8 am, 2 pm and at bedtime) and Perphenazine 4 mg tablet 1 tablet daily at 8 am and 2 mg tablet 1 tablet daily at 2 pm Is also on Trazodone at 200 mg Q HS Follow-up with Psychiatry as scheduled (11) Smoker: Comment: COUNSELED TO QUIT SMOKING. HOWEVER BECAUSE OF HIS MENTAL DISORDER, AND LIVING IN A PRISON, HE IS NOT TO GOING TO CUT DOWN OR STOP SMOKING. Code(s): F17.200 - Nicotine dependence, unspecified, uncomplicated Plan: States that he has quit cigarettes and now just smokes cigars occasionally - counseled again on smoking cessation (applies to ALL tobacco products) (12) Obesity (BMI 30-39.9): Code(s): E66.9 - Obesity, unspecified Plan: Reinforced diet; exercise and weight loss are not realistic as patient is practically sedentary and does not do much in terms of daily physical activity Plan Follow up as scheduled in November 2023 Orders: Referrals Palliative Care Referral C64.1 - Malignant neoplasm of right kidney, except renal pelvis, D46.20 - Refractory anemia with excess of blasts, unspecified, F20.9 - Schizophrenia, unspecified Medications: New amoxicillin-pot clavulanate 875-125 mg 1 tab PO BID 10 days 20 tabs 0RF Coding Level of Care Code Est Pt Level 3 (30268) Diagnoses Acute pharyngitis, unspecified etiology J02.9 Pharyngitis/tonsillitis etiology: unspecified etiology Myelodysplastic syndrome with excess blasts D46.20 Renal cell carcinoma of right kidney C64.1 Type 2 diabetes mellitus without complication, with long-term current use of insulin E11.9; Z79.4 Diabetes mellitus type: type 2 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
[2023-09-04 13:01] VITALS: BP 120/66; PULSE 108; O2SAT 98; BMI 29.3
== END 2023-09-04 14:33 | disposition home or self-care (01) ==
PROVIDERS: PCP Internal Medicine; Visit Provider Internal Medicine
DX: J02.9 Acute pharyngitis, unspecified (principal); D46.20 Refractory anemia with excess of blasts, unspecified; C64.1 Malignant neoplasm of right kidney, except renal pelvis; E11.9 Type 2 diabetes mellitus without complications; Z79.4 Long term (current) use of insulin; E78.00 Pure hypercholesterolemia, unspecified; I10 Essential (primary) hypertension; E03.9 Hypothyroidism, unspecified; G47.33 Obstructive sleep apnea (adult) (pediatric); F41.9 Anxiety disorder, unspecified; F20.9 Schizophrenia, unspecified; F17.200 Nicotine dependence, unspecified, uncomplicated
CPT/HCPCS: 99213

== ENCOUNTER 2023-09-30 08:23 | Inpatient (IN) | payer MEDICARE, MEDICAID, SELFPAY ==
[2023-09-30] VITALS (12 sets, daily range): BP systolic 132–200; BP diastolic 65–98; PULSE 73–140; RESP 16–22; TEMP 37.1–37.3; O2SAT 85–98; BMI 27.7; BMI 28.0
--- NOTE | 2023-09-30 | ECG_ITS ---
Test Reason : cp Blood Pressure : / mmHG Vent. Rate : 105 BPM Atrial Rate : 105 BPM P-R Int : 214 ms QRS Dur : 066 ms QT Int : 320 ms P-R-T Axes : 063 047 047 degrees QTc Int : 422 ms Sinus tachycardia with 1st degree A-V block Low voltage QRS Borderline ECG When compared with ECG of 30-DEC-2022 23:59, No significant change was found Referred By: Generic ED Physician Electronically Signed By:OPAL COUGHLIN
--- NOTE | ~2023-09-30 | CT_ITS ---
EXAMINATION: CT ANGIOGRAM OF THE CHEST WITH AND WITHOUT CONTRAST (CT PULMONARY ANGIOGRAM FOR PE) CLINICAL INFORMATION: Reason for Exam tachycardia, hypoxia, chest pain COMPARISON: Previous chest x-ray most recent December [address] most recent from March 2020. TECHNIQUE: Prior to contrast administration, noncontrast localization images were obtained. Subsequently, multidetector volumetric imaging was performed from the thoracic inlet to below the diaphragms following the administration of 65 mL Omnipaque 350 intravenous contrast. No contrast reaction reported Sagittal, coronal, and MIP oblique sagittal reformatted images were obtained on the CT workstation, uploaded to PACS, and reviewed. This CT examination was performed using dose optimization techniques as appropriate, variously including the following: *Automated exposure control *Adjustment of mA and/or kV according to patient size (this includes techniques or standardized protocols for targeted exams where dose is matched to indication/reason for exam; i.e. extremities or head) *Use of iterative reconstruction technique Total exam dose-length product 326 mGy-cm FINDINGS: QUALITY OF STUDY/CONTRAST BOLUS: Satisfactory. PULMONARY ARTERIES: No pulmonary emboli. THORACIC AORTA: No aneurysm. LUNG: Innumerable small semisolid pulmonary nodules, greatest in both lower lobes. Largest right pulmonary nodule measures 8 mm axial image 264 and largest left pulmonary nodule measures 10 mm axial image 319 series 7. These findings are new from March [address] There are scattered areas of increased centrilobular peribronchial attenuation. This probably represents an infectious or inflammatory process. Neoplastic process cannot be excluded. PLEURA: No pleural effusion or pneumothorax. MEDIASTINUM: Normal heart size. No pericardial effusion. No hilar or mediastinal lymphadenopathy. No evidence of septal bowing or right heart strain. CORONARY ARTERY CALCIFICATION: None visualized on this study. CHEST WALL/AXILLA: No axillary or internal mammary lymphadenopathy. OSSEOUS STRUCTURES: No acute or suspicious osseous abnormality. Degenerative changes of the spine. UPPER ABDOMEN: Spleen not completely imaged but appears prominent. No reflux of contrast into the hepatic veins to suggest elevated right heart pressures. CT/CT angio chest PE protocol IMPRESSION: No evidence of pulmonary embolism. Innumerable small semisolid pulmonary nodules and increased peribronchial attenuation. This probably represents an infectious or inflammatory process/airways disease. VTE: negative.
--- NOTE | ~2023-09-30 | CT_ITS ---
EXAMINATION: CT HEAD WITHOUT CONTRAST CLINICAL INFORMATION: Headache COMPARISON: Previous brain MRI from 2015 TECHNIQUE: Contiguous axial imaging was performed from the skull base to vertex without intravenous administration of contrast. This CT examination was performed using dose optimization techniques as appropriate, variously including the following: *Automated exposure control *Adjustment of mA and/or kV according to patient size (this includes techniques or standardized protocols for targeted exams where dose is matched to indication/reason for exam; i.e. extremities or head) *Use of iterative reconstruction technique DLP: 704 mGy-cm FINDINGS: There is no evidence for an extra-axial collection. There is no evidence for intra-or extra-axial hemorrhage. The ventricles and extra-axial CSF spaces are appropriate. Costello-white matter differentiation is normal. No mass, mass effect or infarct is seen. Review of bone windows is normal. No skull fracture. Underaeration of the right frontal sinus. Small polyp or cyst in the right side of the sphenoid sinus. Visualized sinuses, mastoid air cells and middle ears are otherwise clear. CT/CT head/brain wo IV con IMPRESSION: No acute intracranial findings.
--- OUTSIDE RECORDS SUMMARY | 2023-09-30 08:56 | XMS_ITS | Continuity of Care Document ---
Author Organization [facility] Address [address] [place] [address]- Care Team Providers Care Water Conservation Specialist Name Role Phone Mando Turpin MD Primary Care Physician Encounter [facility] Date(s): 02/27/23 - 03/29/23 [facility] [address] [place] [id number]- [place] Allergies, Adverse Reactions, Alerts Substance Reaction Severity Status metformin 1 DIARRHEA Active Clozaril Active 1Michelle, Dairy Feed Mixing Operator, states the patient has been taking [...] 0, 0, 12/02/07 16:54:52, Print NUHA Number, [id number], Constant Indicator Start Date: 12/02/07 Status: Ordered [...] 0, 0, 12/02/07 16:56:34, Print NUHA Number, [id number], Constant Indicator Start Date: 12/02/07 Status: Ordered [...] Every... Start Date: 10/08/20 Status: Ordered Pen [place], 31 G x 8 mm BD Ultra Fine III See Instructions, # 150 each, Refills 11, Tot. Refills 11, Maintenance, T2DM E11.9 for injecting insulin 4x daily, 12/17/19 4:07:00 EDT, Compound, 176, cm, 12/16/19 9:46:00 EDT, Height Start Date: 12/17/19 Status: Ordered Pepcid Tablet 40, mg, 2 times a day, 0, 0, 12/02/07 16:57:18, Print NUHA Number, [id number], Constant Indicator Start Date: 12/02/07 Status: Ordered [...] Care team information Care Team Personnel Name: Mando Turpin MD Position: Reference Physician Member Role: PCP Address: Address: [address] [place] [address] Drive [address] [place] [phone]- Name: Jeremiah Ocasio RN Position: S RN Member Role: Primary Care Nurse Care Team Related Persons Name: PACAROLINEYOANDY Address: home [address] [place] [address] [place] [id number] Name: THANIA GARNER
--- OUTSIDE RECORDS SUMMARY | 2023-09-30 08:57 | XMS_ITS | Continuity of Care Document ---
Author Organization [facility] Address [address] [place] [address]- Care Team Providers Care Division Operations Manager Name Role Phone Papi GONSALVES, Mando Bearden Primary Care Physician Encounter [facility] [place] Date(s): 06/12/23 - 07/12/23 [facility] [address] [place] [id number]- [place] Allergies, Adverse Reactions, Alerts Substance Reaction Severity Status metformin 1 DIARRHEA Active Clozaril Active 1Michelle, Automation Engineering Manager, states the patient has been taking Metformin with no side effects.We will cancel this as an allergy in his profile to lessen confusion in the future. Medications acetaminophen 325 mg oral tablet 650 mg, By Mouth, Every 4 hours, PRN, Temperature Greater than 100.5, Refills 0, Maintenance, Pain , Mild, 06/10/23 10:17:00 EST, Partial fill upon patient request if the prescription is for a schedule II opioid drug. Start Date: 06/10/23 Status: Ordered Alcohol Pads See Instructions, # 150 each, Refills 11, Tot. Refills 11, Maintenance, use to clean finger tips for glucose monitoring 5x/day DxE11.9, 09/20/20 12:50:00 EDT, E11.65, Compound, 176, cm, 12/16/19 9:46:00 EDT, Height Start Date: 09/20/20 Status: Ordered Alcohol Pads See Instructions, # 200 each, Refills 5, Tot. Refills 5, Maintenance, use as directed to clean skin5x a day, 06/17/23 18:34:00 EST, Compound, 177, cm, 06/10/23 8:06:00 EST, Height, 95.8, kg, 05/29/23 13:03:00 EST, Dry Weight Start Date: 06/17/23 Stop Date: 12/14/23 Status: Ordered Alcohol Wipes See Instructions, # 1 box, Refills 1, Tot. Refills 1, use 3x/day for skin prep, 07/23/12 11:22:03 Start Date: 07/23/12 Status: Ordered Alcohol Wipes See Instructions, # 100 application, Refills 11, Tot. Refills 11, Maintenance, use 3x/day for skin prep, 12/30/10 10:36:36 Start Date: 12/30/10 Status: Ordered atorvastatin 10 mg oral tablet 1 tablet = 10 mg, By Mouth, Daily, 0 Refills, Maintenance, 05/29/23 9:32:00 EST, Partial fill upon patient request if the prescription is for a schedule II opioid drug. Start Date: 05/29/23 Status: Ordered clonazePAM 1 mg oral tablet 1 tablet = 1 mg, By Mouth, 3 times a day, # 21 tablet, 0 Refills, Maintenance, 06/09/23 15:11:00 EST, Tablet, [facility], Partial fill upon patient request if the prescription is for a schedule II opioid drug., 177, cm, 06/09/23 11:55:00... Start Date: 06/09/23 Stop Date: 06/16/23 Status: Ordered COMFRT TOUCH PAD ALC PREP COMFRT TOUCH PAD ALC PREP, See Instructions, # 100 each, 8 Refills, Maintenance, USE DIRECTED [place] AREA 5 TIMES A DAY, 06/30/22 11:23:00 EST, 176, cm, 01/29/21 16:28:00 EDT, Height Start Date: 06/30/22 Status: Ordered desmopressin 0.1 mg oral tablet 2 tablet = 0.2 mg, By Mouth, Daily at bedtime, 0 Refills, Maintenance, 05/29/23 9:32:00 EST, Tablet, Partial fill upon patient request if the prescription is for a schedule II opioid drug. Start Date: 05/29/23 Status: Ordered Freestyle alo 2 14-day sensors [...] EDT, Height Start Date: 12/03/21 Status: Ordered Insulin Syringe, BD Ultra-Fine 1 [...] 12/31/11 15:02:38 Start Date: 12/31/11 Status: Ordered lactulose 10 gm/15 ml oral syrup 15 mL = 10 Gm, By Mouth, Daily, PRN as needed for constipation, 0 Refills, Maintenance, 05/29/23 9:30:00 EST, Syrup, Partial fill upon patient request if the prescription is for a schedule II opioid drug. Start Date: 05/29/23 Status: Ordered Lantus Solostar Pen 100 units/mL subcutaneous solution = 35 units, Subcutaneous Infusion, Daily, # 15 mL, 11 Refills, Maintenance, 06/09/23 15:10:00 EST, [facility], E11.9, 177, cm, 06/09/23 11:55:00 EST, Height, 95.8, kg, 05/29/23 13:03:00EST, Dry Weight Start Date: 06/09/23 Status: Ordered Levothyroxine Tablet 50, mcg, By Mouth, Daily, 0, 0, 12/02/07 16:54:52, Print NUHA Number, [id number], Constant Indicator Start Date: 12/02/07 Status: Ordered magnesium oxide 400 mg oral tablet 1 tablet = 400 mg, By Mouth, Daily, 0 Refills, Maintenance, 05/29/23 9:29:00 EST, Tablet, Partial fill upon patient request if the prescription is for a schedule II opioid drug. Start Date: 05/29/23 Status: Ordered One Touch UltraSoft Lancets See Instructions, # 300 each, Refills 0, Tot. Refills 0, Maintenance, TEST BS 2- 3 TIMES PER DAY, 05/11/12 9:49:52 Start Date: 05/11/12 Status: Ordered Ozempic 2 mg/3 mL (0.25 mg or 0.5 mg dose) subcutaneous solution INJECT 0.5mg UNDER THE SKIN EVERY WEEK Start Date: 05/29/23 Status: Ordered Pen [place], 31 G x 8 mm BD Ultra Fine III See Instructions, # 150 each, Refills 11, Tot. Refills 11, Maintenance, T2DM E11.9 for injecting insulin 4x daily, 12/17/19 4:07:00 EDT, Compound, 176, cm, 12/16/19 9:46:00 EDT, Height Start Date: 12/17/19 Status: Ordered perphenazine 2 mg oral tablet See Instructions, 12 mg By Mouth 3 times a day, Refills 0, Maintenance, 06/10/23 10:18:00 EST, Instructions Replace Required Details, Partial fill upon patient request if the prescription is for a schedule II opioid drug. Start Date: 06/10/23 Status: Ordered PLASTIC URINAL PLASTIC URINAL, See Instructions, # 1 each, Refills 0, Tot. Refills 0, Maintenance, USE DIRECTEDAT HOME, 01/25/10 11:17:50 Start Date: 01/25/10 Status: Ordered Protonix 20 mg oral delayed release tablet = 20 mg, By Mouth, Daily, 0 Refills, Maintenance, 06/10/23 11:00:00 EST, EC Tablet Start Date: 06/10/23 Status: Ordered Tab-A-Devon oral tablet 1 tablet, By Mouth, Daily, 0 Refills, Maintenance, 05/29/23 9:25:00 EST, Tablet, Partial fill upon patient request if the prescription is for a schedule II opioid drug. Start Date: 05/29/23 Status: Ordered tiZANidine 4 mg oral tablet 4 mg, 1, tablet, By Mouth, Daily at bedtime, Refills 0, Maintenance, 05/29/23 9:36:00 EST, Partial fill upon patient request if the prescription is for a schedule II opioid drug. Start Date: 05/29/23 Status: Ordered traZODone 100 mg oral tablet 2 tablets, By Mouth, Daily at bedtime, Refills 0, Maintenance, 05/29/23 9:35:00 EST, Partial fill upon patient request if the prescription is for a schedule II opioid drug. Start Date: 05/29/23 Status: Ordered Problem List Condition Confirmation Course Effective Dates Status H ealth Status Informant Bipolar Confirmed 07/13/08 Active Diabetes mellitus type 2 Confirmed 07/13/00 Active Hypertension Confirmed Active Hypothyroidism Confirmed Active Pulmonary nodule, right Confirmed 05/30/23 Active Obese class I Confirmed Active Obesity Confirmed Active Pancytopenia Confirmed 05/29/23 Active Schizophrenia Confirmed Active Patient Care team information Care Team Personnel Name: Mando Turpin MD Position: Reference Physician Member Role: PCP Address: Address: [address] [place] [address] Drive [address] [place] [id number] Name: Mona Gould RN Position: S RN Member Role: Primary Care Nurse Name: Sheyla Bates RN Position: [facility] RN Member Role: Primary Care Nurse Name: Jayson Beltran RN Position: [facility] RN Member Role: Primary Care Nurse Name: Jeremiah Ocasio RN Position: [facility] RN Member Role: Primary Care Nurse Name: Gualberto Sánchez RN Position: [facility] RN Member Role: Primary Care Nurse Name: Lidya Camacho RN Position: [facility] RN Member Role: Primary Care Nurse Name: Gali Wisdom RN Position: [facility] RN Member Role: Primary Care Nurse Name: Carolyn Dean RN, I Position: [facility] RN Member Role: Primary Care Nurse Care Team Related Persons Name: PACAROLINE YOANDY Address: [address] [place] [address] Name: THANIA GARNER
--- OUTSIDE RECORDS SUMMARY | 2023-09-30 08:57 | XMS_ITS | Continuity of Care Document ---
Author Organization [facility] ancer Care Address [address] [place] [address]- Care Team Providers Care Surgical First Assistant Name Role Phone Mando Turpin MD Primary Care Physician Encounter [facility] [place] Date(s): 06/10/23 - 07/10/23 [facility] [address] [place] [id number]- Attending Physician: Jason Nelson Admitting Physician: AdmtrJason Referring Physician: Admtr, Jason Allergies, Adverse Reactions, Alerts Substance Reaction Severity Status metformin 1 DIARRHEA Active Clozaril Active 1Michelle, Hvac Controls Technician, states the patient has been taking [...] 0 Refills, Maintenance, 06/09/23 15:11:00 EST, Tablet, [facility] 3, Partial fill upon patient request if the prescription is for a schedule II opioid drug., 177, cm, 06/09/23 11:55:00... Start Date: 06/09/23 Stop Date: 06/16/23 Status: Ordered COMFRT TOUCH PAD ALC PREP COMFRT TOUCH PAD ALC PREP, See Instructions, # 100 each, 8 Refills, Maintenance, USE DIRECTED [facility] 5 TIMES A DAY, 06/30/22 11:23:00 [...] mL, 11 Refills, Maintenance, 06/09/23 15:10:00 EST, [facility], E11.9, 177, cm, 06/09/23 11:55:00 EST, Height, 95.8, kg, 05/29/23 13:03:00EST, Dry Weight Start Date: 06/09/23 Status: Ordered Levothyroxine Tablet 50, mcg, By Mouth, Daily, 0, 0, 12/02/07 16:54:52, Print NUHA Number, [id number], Constant Indicator Start Date: 12/02/07 Status: Ordered [...] WEEK Start Date: 05/29/23 Status: Ordered Pen Letts, 31 G x 8 mm BD Ultra [...] Reference Physician Member Role: PCP Address: Address: [address] [place] [address] Drive [address] [place] [id number]- Name: Mona Gould RN Position: [facility] RN Member Role: Primary Care Nurse Name: Sheyla Bates RN Position: [facility] Onco RN Member Role: Primary Care Nurse Name: Jayson Beltran RN Position: S RN Member Role: Primary Care Nurse Name: Jeremiah Ocasio RN Position: [facility] RN Member Role: Primary Care Nurse Name: Gualberto Sánchez RN Position: [facility] RN Member Role: Primary Care Nurse Name: Lidya Camacho RN Position: [facility] RN Member Role: Primary Care Nurse Name: Gali Wisdom RN Position: [facility] RN Member Role: Primary Care Nurse Name: Carolyn Dean RN, I Position: [facility] RN Member Role: Primary Care Nurse Care Team Related Persons Name: YOANDY HARRINGTON Address: [address] [place] [address] Name: THANIA GARNER
--- OUTSIDE RECORDS SUMMARY | 2023-09-30 08:57 | XMS_ITS | Continuity of Care Document ---
Author Organization [facility] Address [address] [place] [address]- Care Team Providers Care Administration Clerk Name Role Phone Mando Turpin MD Primary Care Physician [phone] Encounter [facility] [place] Date(s): 06/10/23 - 08/24/23 [facility] [address] [place] [address]- Discharge Disposition: A-D/C Home Attending Physician: Deisy GONSALVES [facility] Admitting Physician: Jose Lewis MD Referring Physician: Mando Turpin MD Allergies, Adverse Reactions, Alerts Substance Reaction Severity Status metformin 1 DIARRHEA Active Clozaril Active 1Michelle, Lime Hide Inspector, states the patient has been taking Metformin [...] 0 Refills, Maintenance, 06/09/23 15:11:00 EST, Tablet, [facility] 3, Partial fill upon patient request if [...] mL, 11 Refills, Maintenance, 06/09/23 15:10:00 EST, [facility], E11.9, 177, cm, 06/09/23 11:55:00 EST, Height, 95.8, kg, 05/29/23 13:03:00EST, Dry Weight Start Date: 06/09/23 Status: Ordered Levothyroxine Tablet 50, mcg, By Mouth, Daily, 0, 0, 12/02/07 16:54:52, Print NUHA Number, [id number], Constant Indicator Start Date: 12/02/07 Status: Ordered [...] WEEK Start Date: 05/29/23 Status: Ordered Pen Elfrida, 31 G x 8 mm BD Ultra [...] Pancytopenia Confirmed 05/29/23 Active Schizophrenia Confirmed Active Vital Signs Most recent to oldest [Reference Range]: 1 Height 173.9 cm (06/24/23 9:01 AM) Weight 97.0 kg (06/24/23 9:01 AM) Oxygen Saturation [94-100 %] 98 % (06/24/23 9:01 AM) Pulse Rate [55-90 bpm] 104 bpm *H* (06/24/23 9:01 AM) Body Mass Index [18.5-24.99 kg/m2] 32.08 kg/m2 *>HHI* (06/24/23 9:01 AM) Blood Pressure [90-138/55-84 mm Hg] 126/ 69mm Hg (06/24/23 9:01 AM) Temperature [96.8-100.4 DegF] 97.2 DegF (06/24/23 9:01 AM) Mode of Delivery (Oxygen) Room air (06/24/23 9:01 AM) Blood pressure sites Arm, right (06/24/23 9:01 AM) Temperature Route Temporal (06/24/23 9:01 AM) Dry Weight 97.0 kg (06/24/23 9:01 AM) Weight Obtained Via Standing scale (06/24/23 9:01 AM) Dry Weight Obtained Via Standing scale (06/24/23 9:01 AM) Patient Care team information Care Team Personnel Name: Mando Turpin MD Position: Reference Physician Member Role: PCP Address: Address: [address] [place] [address]- Name: Mona Gould RN Position: [facility] RN Member Role: Primary Care Nurse Name: Sheyla Bates RN Position: [facility] Onco RN Member Role: Primary Care Nurse Name: Jayson Beltran RN Position: [facility] RN Member Role: Primary Care Nurse Name: Jeremiah Ocasio RN Position: [facility] RN Member Role: Primary Care Nurse Name: Gualberto Sánchez RN Position: [facility] RN Member Role: Primary Care Nurse Name: Lidya Camacho RN Position: [facility] RN Member Role: Primary Care Nurse Name: Gali Wisdom RN Position: [facility] RN Member Role: Primary Care Nurse Name: Carolyn Dean RN, I Position: [facility] RN Member Role: Primary Care Nurse Name: Wendy Olivas MD Position: [facility] Physician - Oncology Med Service: Hematology & Oncology Member Role: Attending Physician Address: Address: [address] [place] [address] [place] [address]- Care Team Related Persons Name: YOANDY HARRINGTON Address: [address] [place] [address] Name: THANIA GARNER
--- OUTSIDE RECORDS SUMMARY | 2023-09-30 08:57 | XMS_ITS | Continuity of Care Document ---
Author Organization [facility] ter Address [address] [place] [id number]- Care Team Providers Care Assistant Plant Control Operator Name Role Phone Papi GONSALVES, Mando Bearden Primary Care Physician [place] [facility] 05/29/23 - 06/10/[address] [id number] Discharge Disposition: A-D/C Home Attending Physician: Felice Bejarano MD Admitting Physician: Steve GONSALVES, [facility] Referring Physician: Not on Staff, Referring MD Allergies, Adverse Reactions, Alerts Substance Reaction Severity Status metformin 1 DIARRHEA Active Clozaril Active 1Michelle, Team Otr Truck Driver, states the patient has been taking Metformin [...] 0 Refills, Maintenance, 06/09/23 15:11:00 EST, Tablet, [facility], Partial fill upon patient request if [...] mL, 11 Refills, Maintenance, 06/09/23 15:10:00 EST, [facility], E11.9, 177, cm, 06/09/23 11:55:00 EST, Height, 95.8, kg, 05/29/23 13:03:00EST, Dry Weight Start Date: 06/09/23 Status: Ordered levoFLOXacin 250 mg oral tablet 1 tablet = 250 mg, By Mouth, Daily, for 28 days, prophylaxis dose., # 28 tablet, 0 Refills, Acute 07/07/23 16:05:00 EST, 06/09/23 16:05:00 EST, Tablet, [facility], Partial fill upon patient request if the prescription is for a schedule I... Start Date: 06/09/23 Stop Date: 07/07/23 Status: Ordered Levothyroxine Tablet 50, mcg, By Mouth, Daily, 0, 0, 12/02/07 16:54:52, Print NUHA Number, [id number], Constant Indicator Start Date: 12/02/07 Status: Ordered [...] WEEK Start Date: 05/29/23 Status: Ordered Pen [place], 31 G x 8 mm BD Ultra [...] Pancytopenia Confirmed 05/29/23 Active Schizophrenia Confirmed Active Results Radiology Reports * Exam Date Time Procedure Performing Provider Status 06/08/23 9:23 AM Abdomen AP Lou Quinones; Auth (V erified) Notes: (Abdomen AP) Reason For Exam: abd pain.;Distention RESULT: XR Abdomen AP XR Abdomen AP INDICATION/CLINICAL QUESTION: Reason: Distention; abd pain.; Clinical Question(s): Constipation / Constipation TECHNIQUE: Examination consists of 2 different images. 0912 hours.. COMPARISON: 12/12/2021. FINDINGS: No gastric distention. Normal bowel gas pattern small bowel and large bowel, with no bowel dilatation. Mild prominence of stool in the right colon, and the splenic flexure. Bones: No acute bony abnormality. IMPRESSION: 1. Normal bowel gas pattern.. 2. Mild regional prominence of stool as noted above. WSN: [id number] Ordering Physician: Dawson Cleaning Dictated By: Jacob Kraft MD Dictated Date/Time: 06/08/23 11:10 a Reviewed By: Jacob Kraft MD Signed By: Jacob Kraft MD Signed Date/Time: 06/08/23 11:10 am Transcribed By: ROGER Transcribed Date/Time: 06/08/23 11:08 am * Exam Date Time Procedure Performing Provider Status 06/05/23 4:56 PM IR End of Case Report Kanchan fied IR End of Case Report * Exam Date Time Procedure Performing Provider Status 06/05/23 4:[address] Guidance Needle Biopsy Auth (Verified) Notes: (CT Guidance Needle Biopsy) Reason For Exam: Bone marrow biopsy CT Guidance Needle Biopsy Patient: EUGENIO WHITE Study Date: 06/05/2023 Performing: Blayne Freeman MD Referring: : 1965 Age: 57 Gender: MALE PROCEDURE: CT guided bone marrow biopsy and aspiration. CLINICAL INDICATION: Thrombocytopenia GOLD LEAF GILDER(S): Blayne Freeman M.D. ANESTHESIA: Local anesthesia and I.V. conscious sedation supervised by Dr. Freeman using Fentanyl and Versed from 1722 to 1749. The patient was independently monitored by the IR nurse. TECHNIQUE: A limited CT scan of the pelvis was performed using automatic tube current modulation to optimize exposure parameters. A suitable access site was identified, marked, prepped, and draped in standard fashion. One percent lidocaine was administered for local anesthesia. Using intermittent CT fluoroscopy guidance, an 11 Ga Oncontrol introducer needle was advanced into the left iliac wing. Bone marrow aspirates and core biopsies were obtained needles with samples submitted in formalin, EDTA, green and purple top vials. A post biopsy scan was performed. COMPLICATIONS: The patient tolerated the procedure well and left the department in stable condition. There were no immediate complications. FINDINGS/IMPRESSION: CT-guided bone marrow aspiration and biopsy. Signed By Blayne Freeman MD On 06/05/2023 17:53:45 Blayne Freeman MD SUPPLIES : Dictated By: Blayne Freeman MD Dictated Date/Time: 06/05/23 4:56 pm Reviewed By: Blayne Freeman MD Signed By: Blayne Freeman MD Signed Date/Time: 06/05/23 4:56 pm Transcribed By: DELFINA Transcribed Date/Time: 06/05/23 4:56 pm * Exam Date Time Procedure Performing Provider Status 05/30/23 9:46 AM US Liver/Spleen Rosie Lawson; Auth (Verified) Notes: (US Liver/Spleen) Reason For Exam: pancytopenia;Other: RESULT: US Liver/Spleen US Liver/Spleen Reason: Other:; pancytopenia; Clinical Question(s): Other:; pancytopenia COMPARISON: None. FINDINGS: Liver: Diffusely echogenic parenchyma. No focal lesion is seen. Smooth hepatic contour. Biliary Tree: No intrahepatic or extrahepatic bile duct dilation is identified. Common duct measures: 0.5 cm. Spleen: Normal in echotexture. Spleen measures 13.3 cm. Other: No free fluid. IMPRESSION: Suboptimal evaluation due to body habitus. No focal abnormality identified within the liver or spleen. Spleen measurement measures borderline enlarged, though normal spleen size can vary significantly and morphology appears normal. WSN: [id number] Ordering Physician: Lou Santana Dictated By: Julio Monsivais MD Dictated Date/Time: 05/30/23 8:32 pm Reviewed By: Julio Monsivais MD Signed By: Julio Monsivais MD Signed Date/Time: 05/30/23 8:32 pm Transcribed By: ROGER Transcribed Date/Time: 05/30/23 8:28 pm * Exam Date Time Procedure Performing Provider Status 05/29/23 5:[address] Angio Chest Fransisca Toure; Auth (Ve rified) Notes: (CT Angio Chest) Reason For Exam: Central chest pain with pancytopenia;Other: RESULT: CT Angio Chest EXAMINATION: CT Angio Chest INDICATION: Reason: Other:; Central chest pain with pancytopenia; Clinical Question(s): Pulmonary Embolism; Order Comment: TECHNIQUE: Spiral CTA of the chest was performed after rapid IV contrast administration without cardiac gating, triggered by an ADONIS on the main pulmonary artery. Images are formatted in multiple planes using 2-D multiplanar and 3-D maximum intensity projection. 60 cc of Omnipaque 300 was administered intravenously. Weight-based protocol using automatic tube modulation was used to optimize exposure parameters. CTDIvol Body: 15.37 mGy, DLP Body: 697 mGy*cm. COMPARISONS: None. ANGIOGRAPHIC FINDINGS: Evaluation is mildly limited by motion artifact. No pulmonary embolism to the segmental level. Normal caliber pulmonary arteries. No acute aortic abnormality seen on this study performed without cardiac gating. NON-ANGIOGRAPHIC FINDINGS: Check Grader View Findings, Lines and Tubes: None. Trachea and Airways: Patent without evidence of tracheal or endobronchial lesion. Lungs and Pleura: There is a 2 mm right upper lobe nodule (image 16, series 405). With mild fibrotic changes adjacent to the thoracic osteophytes. The lungs are otherwise clear. No effusion or pneumothorax. Mediastinum and naya: No mass or hematoma. No mediastinal or hilar lymphadenopathy. Diffuse mild esophageal wall thickening. Heart: Heart is normal in size. No pericardial effusion. Chest Wall Soft Tissues: Mild osteopenia. Diaphragm and upper abdomen: Splenomegaly measuring 14.6 cm. Bones: No acute abnormality. Moderate multilevel degenerative disc disease with right anterolateralbridging osteophytes. Chronic appearing mild anterior wedging of T8. IMPRESSION: 1. No evidence of pulmonary embolism. 2. Mild esophagitis. 3. Splenomegaly 4. 2 mm right upper lobe nodule. If low risk for malignancy, no routine follow- up. If high risk, optional CT at 12 months. If unchanged, no further follow-up needed per Guidelines for Management of Incidental Pulmonary Nodules Detected on CT Images: From the Fleischner Society 2017. WSN: [id number] Ordering Physician: Kellie Wilson Dictated By: Vanessa GONSALVES, Ulysses Dictated Date/Time: 05/29/23 6:01 pm Reviewed By: Ulysses Mendez MD Signed By: Ulysses Mendez MD Signed Date/Time: 05/29/23 6:01 pm Transcribed By: ROGER Transcribed Date/Time: 05/29/23 5:52 pm * Exam Date Time Procedure Performing Provider Status 05/29/23 3:00 AM Chest 2 Views Frontal and Lat Diane Escobedo; Auth (Verified) Notes: (Chest 2 Views Frontal and Lat) Reason For Exam: Shortness of Breath RESULT: Chest 2 Views Frontal and Lat PA and lateral chest dated May 29, 2023. Comparison films are from July 23, 2015. HISTORY: Shortness of breath. FINDINGS: The cardiac silhouette is within normal limits for size. Hilar and mediastinal structuresare unremarkable. No airspace infiltrate or pleural effusion is identified. Degenerative changes are noted in the spine. IMPRESSION: No evidence of acute pulmonary disease. No significant interval change. Examination 09958. Thank you for allowing me to participate in the care of this patient. WSN: [id number] Ordering Physician: Iram Anderson Dictated By: Julio Torres MD Dictated Date/Time: 05/29/23 7:28 am Reviewed By: Julio Torres MD Signed By: Julio Torres MD Signed Date/Time: 05/29/23 7:28 am Transcribed By: ROGER Transcribed Date/Time: 05/29/23 7:28 am Vital Signs Most recent to oldest [Reference Range]: 1 2 3 Height 177 cm (06/10/23 8:06 AM) 177 cm (06/09/23 8:29 PM) 177 cm (06/09/23 11:55 AM) Weight 95.8 kg (05/29/23 12:40 PM) 95.8 kg (05/29/23 10:59 AM) 93 kg (05/29/23 2:46 AM) Oxygen Saturation [94-100 %] 99 % (06/10/23 8:06 AM) 99 % (06/09/23 8:29 PM) 100 % (06/09/23 11:55 AM) Pulse Rate [55-90 bpm] 84 bpm (06/10/23 8:06 AM) 85 bpm (06/09/23 8:29 PM) 93 bpm *H* (06/09/23 11:55 AM) Body Mass Index [18.5-24.99 kg/m2] 30.58 kg/m2 *>HHI* (05/29/23 12:40 PM) 30.58 kg/m2 *>HHI* (05/29/23 10:59 AM) Blood Pressure [90-138/55-84 mm Hg] 105/54mm Hg (06/10/23 8:06 AM) 113/66mm Hg (06/09/23 8:29 PM) 128/71mm Hg (06/09/23 11:55 AM) Respiratory Rate [16-30 br/min] 18 br/min (06/10/23 8:06 AM) 20 br/min (06/09/23 8:29 PM) 18 br/min (06/09/23 11:55 AM) Temperature [96.8-100.4 DegF] 97.5 DegF (06/10/23 8:06 AM) 98 DegF (06/09/23 8:29 PM) 97.5 DegF (06/09/23 11:55 AM) Liters per Minute 0 L/min (06/04/23 7:51 PM) 0 L/min (05/31/23 6:20 AM) 0 L/min (05/31/23 4:19 AM) Mode of Delivery (Oxygen) Room air (06/10/23 8:06 AM) Room air (06/09/23 8:29 PM) Room air (06/09/23 11:55 AM) Blood pressure sites Arm, right (06/10/23 8:06 AM) Arm, right (06/09/23 8:29 PM) Arm, right (06/09/23 11:55 AM) Temperature Route Oral (06/10/23 8:06 AM) Oral (06/09/23 8:29 PM) Oral (06/09/23 11:55 AM) Dry Weight 95.8 kg (05/29/23 12:40 PM) 93 kg (05/29/23 2:46 AM) 93 kg (05/29/23 12:14 AM) Weight Obtained Via Standing scale (05/29/23 12:40 PM) Standing scale (05/29/23 10:59 AM) Patient/family stated (05/29/23 12:14 AM) Dry Weight Obtained Via Patient/family s tated (05/29/23 12:14 AM) Admission evaluation note * Steve GONSALVES, [facility]: PERFORM, MODIFY Event Display: Admission Note Authored Date: [id number] Patient: ??EUGENIO WHITE ? Age:??57 Years?Sex:??Male?:??1965?? Chief Complaint/Reason for Consultation sob and chest pain x 1 month since he had covid. well appearing. LSCTA. History of Present Illness Patient with past medical history of schizophrenia, bipolar disorder, diabetes mellitus, hypertension and hypothyroidism??presents with a chief complaint of chest pain??since the past 1 month. ?? Patient states that??he has had on and off??chest pain located at the center of her chest for the past 1 month but started getting worse since the past few days.?? Describes the pain as central,??dull with pressure-like sensation??and starts with stress. ??However??also states that the chest pain gets better with walking??and rates it as??7???8/10.?? He denies any shortness of breath??or lightheadedness.?? Also denies any palpitations or edema. ??He denies any bleeding or bruising recently. In the ED, patient was found to be pancytopenic for which she was admitted??for further workup. ?? He denies any alcohol use but states that he smokes 1 pack of cigarettes per day and lives alone. He wishes to be full code this admission. Review of Systems Negative except above. Objective Vital Signs?? Temperature: 98 DegF (05/29/23 10:59:00) Temperature Route: Oral (05/29/23 10:59:00) Pulse Rate: 84 bpm (05/29/23 10:59:00) Respiratory Rate: 16 br/min (05/29/23 10:59:00) Systolic Blood Pressure:??140 mm Hg??High (05/29/23 10:59:00) Diastolic Blood Pressure: 67 mm Hg (05/29/23 10:59:00) Blood pressure sites: Arm, right (05/29/23 10:59:00) Mean Arterial Pressure: 91 mm Hg (05/29/23 10:59:00) Pulse Pressure: 73 mm Hg (05/29/23 10:59:00) Oxygen Saturation: 100 % (05/29/23 10:59:00) Mode of Delivery (Oxygen): Room air (05/29/23 10:59:00) Early Warning Score: 6 (05/29/23 11:50:55) ? Intake/Output? No Data Available ? Physical Exam Constitutional: Alert, in no distress. Mental Status: Oriented to person, place and time. Head: Normocephalic. Eyes: Pupils are equal, round and reactive to light. Extraocular muscles intact. Respiratory: Clear to auscultation. No wheezing, rales or rhonchi. Cardiovascular: S1 S2 regular. No murmurs, rubs or gallops. Gastrointestinal: Abdomen soft, non-tender, non-distended. Normal bowel sounds. No pulsatile mass. No hepatosplenomegaly. Genitourinary: No costovertebral angle tenderness. Neurologic: Cranial nerves II-XII grossly intact. No focal neurological deficits. Flexor plantar response. Moves all extremities spontaneously. Sensation intact bilaterally. Skin: No rashes or lesions. No petechiae or purpura.?? Musculoskeletal: No cyanosis or clubbing. No gross deformities. Normal range of motion. Psychiatric: Normal mood and affect Assessment/Plan Diagnoses Bipolar disorder ??(F31.9) Chest pain ??(R07.9) Diabetes mellitus ??(E11.9) Hypertension ??(I10) Hypothyroidism ??(E03.9) Pancytopenia ??(D61.818) Schizophrenia ??(F20.9) ?? Patient with past medical history of schizophrenia, bipolar disorder, diabetes mellitus, hypertension and hypothyroidism??presents with a chief complaint of chest pain??since the past 1 month. Currently being evaluated for pancytopenia and chest pain. ?? Pancytopenia ??(D61.818) Patient presenting with pancytopenia without any??significant signs or symptoms. Possible cause could be medication induced versus??malignancy??versus malnutrition. Requested hematology??consult???awaiting recommendations Low ANC??and will order neutropenic precautions. Continue to trend??CBC daily Will hold off on Lovenox considering??platelet<50 Unsure why the patient is on desmopressin but will continue??for now ?? Chest pain ??(R07.9) Patient's description of chest pain appears to??be less likely cardiac considering that??it improves with??ambulation. However,??will get a CT chest??PE protocol??along with echocardiogram??to rule out possible causes. EKG without any ischemic changes. Continue telemetry and monitor symptoms. ?? Chronic medical conditions Bipolar disorder ??(F31.9)/Schizophrenia ??(F20.9)Patient appears to be in??pleasant mood.Does not seem to be taking clozapine??or lithium??anymore.Continue??home medication??clonazepam and trazodone. Diabetes mellitus ??(E11.9)??continue??Lantus??with decrease dosing to 40 units which can be increased tomorrow.?? Sliding scale insulin??with the facility Hypertension ??(I10)??patient normotensive and does not seem to be taking any medication at home. ??Continue monitor. Hypothyroidism ??(E03.9) continue home medication levothyroxine 50 mcg daily. ?? Diet???diabetic diet DVT prophylaxis???SCDs CODE STATUS???full code Disposition???pending clinical course??with hematology workup. Histories Allergies Allergies ?(Active and Proposed Allergies Only) Clozaril? (Severity: Unknown severity, Onset: Unknown) metformin? (Severity: Unknown severity, Onset: Unknown) ?Reactions: DIARRHEA ?Comments: Marilee, Team Otr Truck Driver, states the patient has been taking Metformin with noside effects. ??We will ?cancel this as an allergy in his profile to lessen confusion in the future. ? Past Medical History/Problem List Active Problems??(7) Bipolar Diabetes mellitus type 2 Hypertension Hypothyroidism Obese class I Obesity Schizophrenia ? Past Surgical History No surgery history documented. ? Social History No social history documented. ? Family History No family history recorded. ? Medications Home Medications Acetaminophen (Tylenol Caplet)?650?Milligram?By Mouth?Every 4 hours Aspirin (aspirin 81 mg oral enteric coated tablet)?1?tab(s)?81?Milligram?By Mouth?Daily Atorvastatin (atorvastatin 10 mg oral tablet)?1?tab(s)?10?Milligram?By Mouth?Daily Clonazepam (clonazePAM 0.5 mg oral tablet)?1?tab(s)?0.5?Milligram?By Mouth?2 times a day Clozapine (Clozaril 100 mg oral tablet)?1?tab(s)?100?Milligram?By Mouth?3 times aday Desmopressin (desmopressin 0.1 mg oral tablet)?2?tab(s)?0.2?Milligram?By Mouth?Daily at bedtime Durable Medical Equipment (Alcohol Wipes)?See Instructions?use 3x/day for skin prep Durable Medical Equipment (Insulin Syringe, BD Ultra-Fine 1 cc 31 G x 8 mm (5/16in))?See Instructions?USE 4 PER DAY Durable Medical Equipment (One Touch UltraSoft Lancets)?See Instructions?TEST BS 2-3 TIMES PER DAY Durable Medical Equipment (Alcohol Wipes)?See Instructions?use 3x/day for skin prep Durable Medical Equipment (Insulin Syringe, BD Ultra-Fine 1 cc 31 G x 8 mm (5/16in))?See Instructions?4 x a day injection, 90 day supply Durable Medical Equipment (Pen [place], 31 G x 8 mm BD Ultra Fine III)?See Instructions?T2DM E11.9 for injecting insulin 4x daily Durable Medical Equipment (Freestyle Lite Monitor)?See Instructions?DX E11.9 Durable Medical Equipment (Alcohol Pads)?See Instructions?use to clean finger tips for glucose monitoring 5x/day ??DxE11.9 Durable Medical Equipment (Freestyle Lite Lancets)?See Instructions?test blood sugar 5x day, DX E11.9, Durable Medical Equipment (Freestyle Lite Test Strips)?See Instructions?test blood sugar 4x day, DX E11.9 Famotidine (Pepcid Tablet)?40?Milligram?2 times a day Fluticasone Nasal (Flonase)?1?spray(s)?Daily HydrOXYzine (Vistaril pamoate 25 mg oral capsule)?1?capsule?25?Milligram?By Mouth?4 times a day Ibuprofen (ibuprofen 600 mg oral tablet)?600?Milligram?1?tablet?By Mouth?3 times a day?as needed?as needed Insulin Glargine (Lantus Solostar Pen 100 units/mL subcutaneous solution)?48?unit(s)?Subcutaneous Infusion?Daily Lactulose (lactulose 10 gm/15 ml oral syrup)?15?Milliliter?10?gram?By Mouth?Daily?as needed?as needed for constipation Lamotrigine (Lamictal 200 mg oral tablet)?1?tab(s)?200?Milligram?By Mouth?2 timesa day Levothyroxine (Levothyroxine Tablet)?50?Microgram?By Mouth?Daily G[employer] (lithium 300 mg oral tablet)?1?tab(s)?300?Milligram?By Mouth?2 times a day Magnesium Oxide (magnesium oxide 400 mg oral tablet)?1?tab(s)?400?Milligram?By Mouth?Daily Miscellaneous Rx (PLASTIC ??URINAL)?See Instructions?USE DIRECTED AT HOME Miscellaneous Rx (VideoMining alo 2 reader)?See Instructions?Use to check BG up to 5 times/day Miscellaneous Rx (NextNinestyle alo 2 14-day sensors)?See Instructions?Use to check BG up to 5 times/day, change every 14 days, wear on the back of the upper arm Miscellaneous Rx (COMFRT TOUCH PAD ALC PREP)?See Instructions?USE DIRECTED TO CLEAN AREA 5TIMES A DAY Multivitamin (Tab-A-Devon oral tablet)?1?tab(s)?By Mouth?Daily Omeprazole (omeprazole 20 mg oral enteric coated capsule)?1?capsule?20?Milligram?By Mouth?Daily Perphenazine (perphenazine 4 mg oral tablet)?4?Milligram?1?tablet?By Mouth?3 times a day semaglutide (Ozempic 2 mg/3 mL (0.25 mg or 0.5 mg dose) subcutaneous solution)?INJECT 0.5mg UNDER THE SKIN EVERY WEEK Simvastatin (simvastatin 20 mg oral tablet)?1?tab(s)?20?Milligram?By Mouth?Daily at bedtime Tizanidine (tiZANidine 4 mg oral tablet)?4?Milligram?1?tablet?By Mouth?Daily at bedtime Trazodone (traZODone 100 mg oral tablet)?2 tablets?By Mouth?Daily at bedtime ? Results Recent Labs BLOOD COUNT & DIFF WBC 2.0 k/mm3 (Low)?? 05/29/2023 03:33 RBC 3.57 m/mm3 (Low)?? 05/29/2023 03:33 Hgb 10.3 Gm/dL (Low)?? 05/29/2023 03:33 Hct 31.6 % (Low)?? 05/29/2023 03:33 MCV 88.5 femtoliters ()?? 05/29/2023 03:33 MCH 28.9 pg ()?? 05/29/2023 03:33 MCHC 32.6 g/dL (Low)?? 05/29/2023 03:33 Platelet Count 36 k/mm3 (Low)?? 05/29/2023 03:33 RDW-SD 58.5 femtoliters (High)?? 05/29/2023 03:33 MPV NOT MEASURED femtoliters ()?? 05/29/2023 03:33 Nucleated RBC (Automated) 0.0 #/100 WBC'S ()?? 05/29/2023 03:33 Abs. NRBC 0.0 k/mm3 ()?? 05/29/2023 03:33 Abs. Neut 0.2 k/mm3 (Low)?? 05/29/2023 03:33 Abs. Lymph 1.7 k/mm3 ()?? 05/29/2023 03:33 Abs. Marshall 0.1 k/mm3 (Low)?? 05/29/2023 03:33 Abs. Eo 0.0 k/mm3 ()?? 05/29/2023 03:33 Abs. Baso 0.0 k/mm3 ()?? 05/29/2023 03:33 Neut % 11.3 % (Low)?? 05/29/2023 03:33 Lymph % 82.8 % (High)?? 05/29/2023 03:33 Marshall % 3.9 % (Low)?? 05/29/2023 03:33 Eos % 1.5 % ()?? 05/29/2023 03:33 Baso % 0.5 % ()?? 05/29/2023 03:33 RBC Morphology FEW ()?? 05/29/2023 03:33 Platelet Estimate DECREASED ()?? 05/29/2023 03:33 Imm Gran 0.0 % ()?? 05/29/2023 03:33 Abs. Imm Gran 0.0 k/mm3 ()?? 05/29/2023 03:33 ?? CARDIAC High Sensitivity Troponin (HSTnT) 13 ng/L ()?? 05/29/2023 06:00 ?? CHEM GENERAL Sodium 137 mmol/L ()?? 05/29/2023 03:33 Potassium 4.2 mmol/L ()?? 05/29/2023 03:33 Chloride 100 mmol/L ()?? 05/29/2023 03:33 Bicarbonate Level 29 mmol/L ()?? 05/29/2023 03:33 Anion Gap 8 ()?? 05/29/2023 03:33 Glucose Level 131 mg/dL (High)?? 05/29/2023 03:33 Glucose, POC 208 mg/dL (High)?? 05/29/2023 11:48 BUN 13 mg/dL ()?? 05/29/2023 03:33 Creatinine-Blood 0.8 mg/dL ()?? 05/29/2023 03:33 Estimated GFR Creatinine 103 ML/MIN/1.73 M2 ()?? 05/29/2023 03:33 Calcium 9.5 mg/dL ()?? 05/29/2023 03:33 Protein, Total 6.5 Gm/dL ()?? 05/29/2023 07:53 Albumin 4.4 Gm/dL ()?? 05/29/2023 07:53 Alkaline Phosphatase 84 units/L ()?? 05/29/2023 07:53 AST (SGOT) 20 units/L ()?? 05/29/2023 07:53 ALT (SGPT) 16 units/L ()?? 05/29/2023 07:53 Bilirubin, Total 0.9 mg/dL ()?? 05/29/2023 07:53 Bilirubin, Direct 0.3 mg/dL ()?? 05/29/2023 07:53 Bilirubin, Indirect 0.6 mg/dL ()?? 05/29/2023 07:53 ?? COAG INR 1.1 ()?? 05/29/2023 07:53 Protime (PT) 11.4 seconds ()?? 05/29/2023 07:53 D-Dimer 0.39 mg/L FEU ()?? 05/29/2023 07:53 ?? HEME OTHER Hold Blue Top SPECIMEN DISCARDED AFTER 4 HOURS. ()?? 05/29/2023 03:33 ?? URINE OTHER Est Creatinine Clearance 102.89 mL/min ()?? 05/29/2023 11:02 ? LFT Albumin: 4.4 Gm/dL (07:53) Alkaline Phosphatase: 84 units/L (07:53) ALT (SGPT): 16 units/L (07:53) AST (SGOT): 20 units/L (07:53) Bilirubin, Direct: 0.3 mg/dL (07:53) Bilirubin, Indirect: 0.6 mg/dL (07:53) Bilirubin, Total: 0.9 mg/dL (07:53) Protime (PT): 11.4 seconds (07:53) ?? Urinalysis Est Creatinine Clearance: 102.89 mL/min (11:02) ?? Blood Gases?? No qualifying data available. ?? EKG study * Event Display: EKG Authored Date: * Event Display: ECG 12-Lead Authored Date: Please click on pdf link to open report * Event Display: ECG 12-Lead Authored Date: Ventricular Rate: 69 BPM Atrial Rate: 69 BPM P-R Interval: 286 ms QRS Duration: 74 ms Q-T Interval: 406 ms QTC Calculation(Bazett): 435 ms P [place]: 61 degrees R [place]: 30 degrees T [place]: 42 degrees Sinus rhythm with 1st degree A-V block Otherwise normal ECG When compared with ECG of 26-APR-2010 21:25, NE interval has increased Vent. rate has decreased BY 39 BPM Confirmed by TEN CHAVEZ MD ([id number]) on 05/31/2023 4:57:39 PM Eldena: TEN CHAVEZ MD Heart * Event Display: Echocardiogram - Complete Authored Date: Transthoracic Echocardiography Report (TTE) Patient Demographics Patient Name EUGENIO WHITE Date of Study 05/29/2023 Corporate Gender Male Facility Race /[place] Ethnicity Date of 1965 Height: 70.08 inches Age 57 year(s) Weight: 205.03 pounds Accession Number [id number] BSA: 2.11 m2 Room Number [id number] BMI: 29.35 kg/m2 Referring Interpreting Suzanne Denney MD Physician Physician Silviculture Teacher Shanika Peng [facility] Indications Chest pain. Clinical History DM HTN Study Data Type of Study TTE procedure:Echo Complete-Doppler, Colorflow, M-Mode. Study Date05/29/2023 Start Time: 02:24 PM Study [place] [facility] [place] Study Status: Echo lab Patient Status: Routine Technical Quality: Technically difficult due to poor acoustical window. Blood Pressure:140/67 mmHg EKG: Normal sinus rhythm HR: 78 bpm 2D Measurements LV Diastolic Dimension: 4.2 cm LV Systolic Dimension: 2.5 cm LV Septum Diastolic: 0.9 cm LV PW Diastolic: 0.8 cm AO Root Dimension: 3 cm LA Dimension: 3.3 cm LA ESV (BP):40.1 ml LVOT Stroke Volume: 67.63 ml LA ESV Index: 19 ml/m2 Stroke Volume Index32.05 ml/m2 LVOT: 2.2 cm Cardiac Index:2.5 l/min/m2 Ascending Aorta:3.3 cm Doppler Measurements AV Peak Velocity: 104 cm/s MV Peak E-Wave: 66 cm/s AV Peak Gradient: 4.33 mmHg MV Peak A-Wave: 95.3 cm/s AV Mean Gradient: 2 mmHg MV E/A Ratio: 0.69 AV VTI:20.5 cm MV P1/2t: 44 msec LVOT Peak Velocity: 92 cm/s LVOT VTI17.8 cm MV Deceleration Time: 151 msec AV Area (Continuity):3.3 cm2 MV Area (PHT): 5 cm2 PV Peak Velocity: 124 cm/s PV Peak Gradient: 6.15 mmHg E' Septal Velocity: 6.74 cm/s E' Lateral Velocity: 8.92 cm/s E/Med E':[id number] E/Lat E':[id number] Cardiac Anatomy Left Ventricle/Interventricular Septum The left ventricle is normal in size. Systolic function is preserved. Ejection fraction is 55-60%. No definite wall motion abnormalities detected but cannot be excluded. Diastolic function could not be determined. Left Atrium/Interatrial Septum The left atrium is normal in size. Aortic Valve No significant regurgitation or stenosis. Mitral Valve No significant regurgitation or stenosis. Aorta The ascending aorta and aortic root are normal in size when indexed. Right Ventricle The right ventricle is normal in size. Function is preserved. Right Atrium The right atrium is normal in size. Pulmonic Valve No significant regurgitation. Tricuspid Valve No significant regurgitation. Pumonary Artery An accurate pulmonary artery pressure could not be obtained. Venous Structures IVC is poorly visualized. It is grossly normal in size. Pericardium/Extracardiac No definite pericardial effusion detected. Summary The left ventricle is normal in size. Systolic function is preserved. Ejection fraction is 55-60%. No definite wall motion abnormalities detected but cannot be excluded. Diastolic function could not be determined. The left atrium is normal in size. The right ventricle is normal in size. Function is preserved. The right atrium is normal in size. Comparison No prior study available for comparison. Signature * Event Display: Echocardiogram - Complete Authored Date: Hospital Progress note * Bell Nino: PERFORM, SIGN, VERIFY Event Display: Progress Note Hospital Authored Date: [id number] Patient: EUGENIO WHITE Age: 57 years Sex: Male : 1965 Associated Diagnoses: None Author: Bell Nino Findings Problem Related to Alteration in Comfort : Alteration in Comfort/new 06/10/2023 0:00 EST Alteration in Comfort Related to Disease process Goals & Outcomes: Comfort Pt will report acceptable level of comfort & pain control, Pt will state importance of adhering to pain strategy regime, Pt will demonstrate necessary skills to manage pain Interventions Implemented: Comfort Assess pain using appropriate pain scale/tools, Assess aggravating factors & prevent them accordingly, Assess alleviating factors & promote them accordingly Goals/Interventions, Comfort Yes Comfort, Problem Start 05/31/2023 13:57 Reviewed plan with, Comfort Patient Patient Progression, Comfort Pt progressing according to plan Comfort, Problem Ongoing Yes . Alteration in Immunologic : Alteration in Immunologic Function/new 06/10/2023 0:00 EST Alteration Immunologic Status Related to Other: pancytopenia Goals & Outcomes, Immunologic Pt will maintain/resume normal fluid/electrolyte balance, Pt willmaintain intact skin integrity, Pt will not develop complications r/t immobility, Inflammatory/infectious process will resolve, Wound healing will take place, Pt will show proper technique wth self care procedures Interventions, Immunologic Monitor response to fluid replacement, Maintain and monitor nutritional intake, Assess for presence and degree of edema, Assess skin integrity Goals/Interventions, Immunologic Yes Immunologic, Problem Start 05/29/2023 23:19 Reviewed Plan with, Immunologic Patient Patient Progression, Immunologic Status Pt progressing according to plan (Modified) . Evaluation pt a&o to self, place, and event. VSS and afebrile. denies SOB, N/V, and SOB. refused lactuloseat bedtime. pt became frustrated and was mumbling words under breath, stating you all are messing up my medications. pt reassured his medications were not altered and were the same as they have been. pt was able to calm voice and tone. stated he did not want to be bothered during the night. pt indept in the room. resting comofrtably in bed at this time. offering no complaints. bed in locked andlowest postion. call reid in reach.. Discharge Information Case Management Discharge Plan : Case Management Discharge Plan Data 06/09/2023 14:56 EST Discharge Level of Care at Discharge Homehealth/VNA Discharge VNA/Hospice/Home Care [facility] Discharge Transportation Arranged [facility] [address] [facility] [phone] Discharge Arranged Transport Date/Time 06/09/2023 17:00 Mode of Transportation Arranged Chair Van Service Categories #1 Care Home Service Comments #1 The nurse will call you to arrange Weds 06/10 visit time, please call agency withquestions Rehabilitation Discharge : Rehab Discharge Index 06/05/2023 12:34 EST Comments on treatment indicated 57M p/w sob and chest pain, admitted 2' findingsof pancytopenia. Some agitation while at hospital, none on eval. PT to improve balance, strength, and gait with LRAD. Cane: distance >50 Distance pt will ambulate 150 Full chart review completed Yes Hospital course Hospital course Other findings Received sitting in recliner. Transfers indep, no AD. Pt amb in spear with intermittent increased lateral postural sway, no overt LOB, requiring S. Pt amb 105' total. Rec use of SPC in/out of facility. PT to follow for AD training. Plan of care PT Gait training, Transfer training, Therapeutic exercise, Functional Activities, Balance training * Gualberto Sánchez RN: PERFORM, SIGN, VERIFY Event Display: Progress Note Hospital Authored Date: [id number] Patient: EUGENIO WHITE Age: 57 years Sex: Male : 1965 Associated Diagnoses: None Author: Gualberto Sánchez RN Findings Problem Related to Alteration in Comfort : Alteration in Comfort/new 06/09/2023 10:00 EST Alteration in Comfort Related to Disease process Goals & Outcomes: Comfort Pt will report acceptable level of comfort & pain control, Pt will state importance of adhering to pain strategy regime, Pt will demonstrate necessary skills to manage pain Interventions Implemented: Comfort Assess pain using appropriate pain scale/tools, Assess aggravating factors & prevent them accordingly, Assess alleviating factors & promote them accordingly BH Goals/Interventions, Comfort Yes Comfort, Problem Start 05/31/2023 13:57 Reviewed plan with, Comfort Patient Patient Progression, Comfort Pt progressing according to plan Comfort, Problem Ongoing Yes . Alteration in Immunologic : Alteration in Immunologic Function/new 06/09/2023 10:00 EST Alteration Immunologic Status Related to Other: pancytopenia Goals & Outcomes, Immunologic Pt will maintain/resume normal fluid/electrolyte balance, Pt willmaintain intact skin integrity, Pt will not develop complications r/t immobility, Inflammatory/infectious process will resolve, Wound healing will take place, Pt will show proper technique wth self care procedures Interventions, Immunologic Monitor Intake & Output, Maintain and monitor nutritional intake, Assess for presence and degree of edema, Assess skin integrity Goals/Interventions, Immunologic Yes Immunologic, Problem Start 05/29/2023 23:19 Reviewed Plan with, Immunologic Patient Patient Progression, Immunologic Status Pt progressing according to plan . Nursing Data Vital Signs : VITAL SIGNS SECTION 06/09/2023 11:55 EST Temperature 97.5 DegF Temperature Route Oral Pulse Rate 93 bpm H Respiratory Rate 18 br/min Systolic Blood Pressure 128 mm Hg Diastolic Blood Pressure 71 mm Hg Blood pressure sites Arm, right Mean Arterial Pressure 90 mm Hg Pulse Pressure 57 mm Hg Oxygen Saturation 100 % Mode of Delivery (Oxygen) Room air . Narrative/Incidental Pt due to d/c this afternoon. Rx was to deliver meds to room, pt to d/c via w/ ambulance. Pt's Lantus sent to outpatient pharmacy yesterday, when [facility] pharmacy called asking them to reverse the claim so that it could be filled here and sent home w/pt, [facility] pharmacy received push back stating outside meds wouldn't be accepted in pt's [facility]. All staff unaware that pt was from [facility]; CM looked into claim and determined that pt was in fact from [facility]. CM called [facility], curriculum supervisor off today but will return tomorrow. Asked by [facility] to hold off on discharge today, will accept pt back tomorrow and they would like meds to be sent home w/pt (Lantus will be picked up bygroup home staff). Pt made aware by CM and primary RN, initially unhappy but easily redirected and talked through without any escalation in behaviors or attitude. Pt now due to d/c at noon on 06/10.. Discharge Information Case Management Discharge Plan : Case Management Discharge Plan Data 06/09/2023 14:56 EST Discharge Level of Care at Discharge Homehealth/VNA Discharge VNA[facility]Hospice[facility]ranged [facility] [address] [facility] [place] [address] [phone] Discharge Arranged Transport Date/Time 06/09/2023 17:00 Mode of Transportation Arranged Chair Van Service Categories #1 Care Home Service Comments #1 The nurse will call you to arrange Weds 06/10 visit time, please call agency withquestions Rehabilitation Discharge : Rehab Discharge Index 06/05/2023 12:34 EST Comments on treatment indicated 57M p/w sob and chest pain, admitted 2' findingsof pancytopenia. Some agitation while at hospital, none on eval. PT to improve balance, strength, and gait with LRAD. Cane: distance >50 Distance pt will ambulate 150 Full chart review completed Yes Hospital course Hospital course Other findings Received sitting in recliner. Transfers indep, no AD. Pt amb in spear with intermittent increased lateral postural sway, no overt LOB, requiring S. Pt amb 105' total. Rec use of SPC in/out of facility. PT to follow for AD training. Plan of care PT Gait training, Transfer training, Therapeutic exercise, Functional Activities, Balance training * Bell Nino: PERFORM, SIGN, VERIFY Event Display: Progress Note Hospital Authored Date: Patient: EUGENIO WHITE Age: 57 years Sex: Male : 1965 Associated Diagnoses: None Author: Bell Nino Findings Problem Related to Alteration in Comfort : Alteration in Comfort/new 06/09/2023 2:00 EST Alteration in Comfort Related to Disease process Goals & Outcomes: Comfort Pt will report acceptable level of comfort & pain control, Pt will state importance of adhering to pain strategy regime, Pt will demonstrate necessary skills to manage pain Interventions Implemented: Comfort Assess pain using appropriate pain scale/tools, Assess aggravating factors & prevent them accordingly, Assess alleviating factors & promote them accordingly Goals/Interventions, Comfort Yes Comfort, Problem Start 05/31/2023 13:57 Reviewed plan with, Comfort Patient Patient Progression, Comfort Pt progressing according to plan Comfort, Problem Ongoing Yes . Alteration in Immunologic : Alteration in Immunologic Function/new 06/09/2023 2:00 EST Alteration Immunologic Status Related to Other: pancytopenia Goals & Outcomes, Immunologic Pt will maintain/resume normal fluid/electrolyte balance, Pt willmaintain intact skin integrity, Pt will not develop complications r/t immobility, Inflammatory/infectious process will resolve, Wound healing will take place, Pt will show proper technique wth self care procedures Interventions, Immunologic Maintain patent IV access, Monitor Intake & Output, Maintain and monitor nutritional intake, Assess for presence and degree of edema, Assess skin integrity BH Goals/Interventions, Immunologic Yes Immunologic, Problem Start 05/29/2023 23:19 Reviewed Plan with, Immunologic Patient Patient Progression, Immunologic Status Pt progressing according to plan . Evaluation pt a&oX3 this shift. VSS and afebrile. denies SOB, N/V and pain. c/o slight discomfort on bone marrow bx site but is relieved by walking around. tolerated bedtime meds well. refused lactulose. ptstated he had 3 loose BM's during the daytime but were all unwitnessed. pt ambulating indept. in the hallways. denies any thoughts of SI. offering no complaints at this time. bed in locked and lowes t position. call reid in reach.. Discharge Information Rehabilitation Discharge : Rehab Discharge Index 06/05/2023 12:34 EST Comments on treatment indicated 57M p/w sob and chest pain, admitted 2' findingsof pancytopenia. Some agitation while at hospital, none on eval. PT to improve balance, strength, and gait with LRAD. Cane: distance >50 Distance pt will ambulate 150 Full chart review completed Yes Hospital course Hospital course Other findings Received sitting in recliner. Transfers indep, no AD. Pt amb in spear with intermittent increased lateral postural sway, no overt LOB, requiring S. Pt amb 105' total. Rec use of SPC in/out of facility. PT to follow for AD training. Plan of care PT Gait training, Transfer training, Therapeutic exercise, Functional Activities, Balance training Consult note * Joel Khanna DO: MODIFY Maddiily Joel ROCK: MODIFY, PERFORM Jabaily Joel ROCK: PERFORM, MODIFY Jabaily Joel ROCK: MODIFY, MODIFY Jabaily Joel ROCK: MODIFY, MODIFY Stevenbaily Joel ROCK: MODIFY, MODIFY Gualberto Del Angel DO: MODIFY Event Display: Consultation Note Authored Date: Patient: ??EUGENIO WHITE ? Age:??57 Years?Sex:??Male?:??1965?? Chief Complaint sob and chest pain x 1 month since he had covid. well appearing. LSCTA. History of Present Illness Consult Information ?? Referring Provider: Dr. Bejarano ?? Consulting Attending: Dr. Del Angel ?? Sources of Information: Patient (unreliable historian); [facility] records; Floor nurse ?? Reason(s) for Consultation: H/O bipolar and schizophrenia. Agitation, restlessness. ? pt is on Perphenazine which could have contributed to pancytopenia. ?? Community Development Officer: N/A, [place] a [place]fluent [place] speaker ? Eugenio White is a 57 year old male with past history of schizoaffective disorder, T2DM, HTN, and hypothyroidism who [place] [facility] [place] with a complaint of intermittent chest pain for 1 month. Patient found to have asymptomatic pancytopenia with most recent blood work on 05/30 showing WBC 1.1, RBC 3.33, Hgb 10.3, Hct 28.5, Plt 33, ANC 0.2, Absolute Monocytes 0.1, Haptoglobin <10. TSH WNL.He was admitted for further workup to determine cause of the pancytopenia, whether it is a side effect of the perphenazine or malignancy. Heme/onc involved. His home Clonazepam 0.5 mg BID and Trazodone 100 mg qhs were continued. Bone marrow biopsy likely scheduled for Thursday. Per hematology note on05/29, patient had stated he had low blood counts with PCP a year ago, and they have requested the outside records. Per overnight nursing notes, patient became irritated with phlebotomy attempted to take repeat labs, yelling, No more blood! You people are taking all my blood. Code yellow called and constant training development manager ordered. ?? Per floor nurse, Gualberto Sánchez RN he worked with Eugenio yesterday, and while he had some verbal outbursts, there has been a significant change in behavior overnight. RN stated patients said he wantedto put a gun to [his] head and kill [him]self when [he] gets home. ?? On approach, patient heard loudly dialoging at the constant training development manager in his room. ?? On interview, patient states he believes he has cancer that was caused by his perphenazine, which he both wants to continue taking and wants to stop. He states he knows he was doing well on it, and states he believes he is dying. He endorses suicidal ideation, unable to give a clear answer as to whether it is active suicidal ideation, although he did state that he would be splattered on the highway . He reports he gets services through [facility], and last saw his provider Markus Benítez one month ago. He has a VNA named Liu. He states he has not been on Clozapine for a very long time, and could not say what his allergy to it was. Patient asked to be restarted on perphenazine. He then stated hedid not want to be on any psychiatric medications, as they have been killing [him] for years. He alternately endorsed having mental health conditions or not, and alternately stated that medicationswere helpful or not. He was not able to engage in a conversation about whether he would take a different antipsychotic medication. He states he hates doctors and does not trust the medical system. He stated he wanted to leave the hospital. He states he would not allow any more blood to be taken. Hewas not able to state what could happen to his health if he were to leave the hospital given his current health. ?? He notes he caught COVID last month, and feels he started to experience chest pain following that. He did not complain of chest pain at present. Patient states his thyroid feels big, and that he cannot walk. ?? He made disparaging, angry, and personal verbal attacks, although did not leave his chair. Patient made racist and homophobic comments, and was informed those kinds of comments were not acceptablein the hospital. He denied HI. Review of Systems Pertinent positives and negatives as reviewed above. ?? Psychiatric ROS Unable to complete psych ROS at this time due to patient's hostility and tangentiality. ?? Substance Use Tobacco:?? 1 PPD. States 21 mg patch not covering his cravings. Alcohol:?? Denied Cannabis: Denied, states he does not like its effect on him. Also stated he wants to find a doctor who will prescribe it. He was angry it could not be prescribed in the hospital. Other drug use: Denies ?? Past Psychiatric History: ?? Past Hospitalizations: ?? Long history of inpatient psychiatric hospitalizations. ?? [facility] - 2022? - for suicidality ?? Per [facility] records, patient admitted to [facility] - June 2010 due to paranoia and delusions about neighbors. Per [facility] admission note in 2010, He has also been admitted to [facility], [facility], [facility], [facility], [facility], [facility], [facility], and [facility]. ?? Current psychotropic medications: ?? Perphenazine 12 mg TID Clonazepam 0.5 mg BID Trazodone 100 mg qhs ?? Past Treatment Trials: ?? G. L. Garcia 450mg / 900mg Clozaril -- listed as an allergy Invega 9 mg Risperidone Benztropine 0.5 mg BID Depakote 500mg / 500mg / 1000mg Seroquel 800mg qhs Wellbutrin 100mg sr Geodon 80mg BID ?? Treatment Providers:? Markus Benítez, [facility], . Unclear if patient has a current community [facility]. He states he has had a [facility] in the past. ?? [facility] records indicate past [facility] involvement. ?? Past Suicidality: Endorses a suicide attempt as a teen. Reports he had an inpatient psychiatric hospitalization at [facility] last year for SI. ?? Family History of Mental Illness and/or Suicide: Unable to assess due to hostility and tangentiality. ?? Social History ?? Living Situation: Currently lives alone in an apartment on [address]. States he used to be in a [facility] for many years, but requested to live alone. Supports: Has a VNA named Liu. Relationships: Formerly , states his kept taking Income: Has a rep payee. Does not know who they are, they are keeping that knowledge from me! ?? 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 Mental Status Vitals & Measurements T:??97.9?F?? HR:??93??(Peripheral)?? RR:??17?? BP:??115/66?? SpO2:??98%?? HT:??177??cm?? WT:??95.8??kg?? BMI:??30.58?? MENTAL STATUS EXAM ?? Appearance: in hospital attire, long todd, unkempt, appears stated age Attitude: uncooperative, suspicious, hostile Motor Activity: calm, seated in chair, no tremors or tics, no psychomotor agitation / retardation, intense eye contact Mood: I'm dying Affect: labile, irritable Speech: slightly increased rate, loud tone, excessive Memory: grossly intact Orientation: grossly intact Perception: Stated paranoia of doctors, medical system, [employer], his outpatient team, medications. No AVH. Thought process: racing thoughts, tangential, perseverative Thought content: cancer, medications, treatment Insight: impaired Judgement: impaired Self Injury: endorses suicidal ideation; stated a vague plan to go into traffic and RN reported he'd stated he wanted to shoot himself in the head when he got home Homicidality: denies homicidal ideation, plan, or intent [place] Suicide Score [place] Suicide Assessment [place] (05/29/23) Suicidal Thoughts Past Month - CSSRS: No (05/29/23) Suicide Behavior Lifetime - CSSRS: Yes (05/29/23) Suicide Behavior Past 3 Months - CSSRS: No (05/29/23) Wish to be Past Month - CSSRS: No (05/29/23) Assessment/Plan Assessment: ?? Eugenio White is a 57 year old male with past history of schizoaffective disorder, T2DM, HTN, and hypothyroidism who presented [place] [facility] [place] with chest pain and was found to have asymptomatic pancytopenia with most recent blood work on 05/30 showing ANC 0.2. TSH WNL. He was admitted for further workup to determine cause of the pancytopenia, whether it is a side effect of the perphenazine or malignancy. Home Perphenazine 12 mg TID held on admission; he has been taking Perphenazine for 7 years. We reached out to on-call Hematology, who are following, and they noted perphenazine should continue to be held if ANC less than 1000, and that it could take up to 1 week to see if blood counts improveafter stopping it. Bone marrow biopsy likely scheduled for Thursday. Per hematology note on 05/29, patient had stated he had low blood counts with PCP a year ago, and they have requested the outside records. He has a listed allergy for Clozaril, although he was unable to say whether it was due to low ANC. Patient last night began having a shift in mood and hostility, now likely showing signs of decompensation in the absence of his perphenazine. Patient with verbal aggression and mood lability, endorsing SI with alternate plans to go into traffic or to shoot himself.?? He has history of past suicidality, and has had multiple past inpatient psychiatric hospitalizations, some for suicidality. Denies HI. Declined blood draws last night, code yellow called.Denies substance use apart from cigarettes, 1 PPD. States he did have COVID a month ago. Eugenio has services through [facility], including long termprovider Markus Benítez, whom he saw one month ago. Unclear the full scope of services he has, or if there is a community [place]. He confirmed he has a VNA and a Rep Payee. Eugenio stating he wants to leave the hospital and that he will decline further blood draws. He was unable to demonstrate his appreciation of what would happen if he were to refuse care and leave AMA, including possibility of , and thus lacks capacity to leave AMA or make significant medical decisions that prevent further workup.? DSM- 5 Diagnoses: ?? Schizoaffective disorder, bipolar type ?? Recommendations: ?? -Continue constant training development manager. Patient may NOT leave AMA without psychiatry clearance. ?? -Patient currently lacks capacity to make significant medical decisions that prevent further workup. ?? -Hold antipsychotics at this time given potential risk for worsening blood counts ?? -Increase scheduled Clonazepam from 0.5 mg BID to 1 mg TID for its anti-manic qualities ?? -For acute agitation, consider giving Lorazepam 2 mg and Benadryl 50 mg PO/IV/IM; monitor respirations given level of dosing of benzodiazepines ?? -Psychiatry consult service will reach out to his community providers tomorrow to determine if a community [facility] is in place ?? -Patient states current 21 mg nicotine patch not covering his cravings. Could consider adding an additional 7 mg or 14 mg patch to the existing 21 mg patch. ?? Thank you for allowing us to participate in this patient's care. We will continue to follow the patient. Please feel free to contact the Psychiatry consult service [phone] with any questions or concerns. ?? Recommendations sent via viaForensics to Dr. Bejarano ?? Joel Khanna, DO - PGY3, [facility] Psychiatry, viaForensics or Pager #[phone] Patient discussed with attending, Dr. Del Angel ? Attending Physician Attestation: I have seen and evaluated this patient??on the date of service anddiscussed the case and its management??with??the resident physician??as documented. ??I agree with the assessment and plan as documented above with the following additions??or changes: Unclear if cause of pancytopenia is perphenazine, however per oncology will require at least one week off of medication to see??improvement of cbc. Bone marrow biopsy in consideration which may provide definitive answer sooner. ? MDM: High Problems and Complexity: acute exacerbation of schizoaffective disorder resulting in suicidal statements, poor insight and judgement, suicidal statements with concerns for suicidal behavior if not gris controlled environment. Possible serious adverse reaction to antipsychotic resulting in life threatening pancytopenia requiring emergent evaluation and inpatient medical care. Risk of Morbidity and/or Mortality:??Consideration of inpatient psychiatric care once medically stable, consideration of medical capacity, serious adverse reaction from antipsychotic medication requiring close monitoring of CBC. Code:??27623 ? Problem List/Past Medical History Ongoing Bipolar Diabetes mellitus type 2 Hypertension Hypothyroidism Obese class I Obesity Schizophrenia Procedure/Surgical History No qualifying data available. Medications Acetaminophen Tablet, 650 mg, By Mouth, Every 4 hours, PRN Alcohol Pads, See Instructions, 11 refills Alcohol Wipes, See Instructions, 1 refills Alcohol Wipes, See Instructions, 11 refills aspirin 81 mg oral delayed release tablet, 81 mg, By Mouth, Daily aspirin 81 mg oral enteric coated tablet, 81 mg= 1 tablet, By Mouth, Daily atorvastatin 10 mg oral tablet, 10 mg= 1 tablet, By Mouth, Daily atorvastatin 10 mg oral tablet, 10 mg, By Mouth, Daily clonazePAM 0.5 mg oral tablet, 0.5 mg= 1 tablet, By Mouth, 2 times a day clonazePAM 0.5 mg oral tablet, 0.5 mg, By Mouth, 2 times a day Clozaril 100 mg oral tablet, 100 mg= 1 tablet, By Mouth, 3 times a day COMFRT TOUCH PAD ALC PREP, See Instructions desmopressin 0.1 mg oral tablet, 0.2 mg= 2 tablet, By Mouth, Daily at bedtime desmopressin 0.1 mg oral tablet, 0.2 mg, By Mouth, Daily at bedtime Docusate Sodium Capsule, 100 mg= 1 capsule, By Mouth, 2 times a day, PRN Flonase, 1 sprays, Daily Freestyle alo 2 14-day sensors, See Instructions, 11 refills Freestyle alo 2 reader, See Instructions Freestyle Lite Lancets, See Instructions, 11 refills Freestyle Lite Monitor, See Instructions Freestyle Lite Test Strips, See Instructions, 3 refills ibuprofen 600 mg oral tablet, 600 mg= 1 tablet, By Mouth, 3 times a day, PRN ibuprofen 600 mg oral tablet, 600 mg, By Mouth, 3 times a day, PRN Insulin Glargine Inj, 40 units= 0.4 mL, Subcutaneous Injection, Daily Insulin LISPRO Sliding Scale, 2-10 units, Subcutaneous Injection, 3 times a day before meals Insulin Syringe, BD Ultra-Fine 1 cc 31 G x 8 mm (5/16in), See Instructions, 5 refills Insulin Syringe, BD Ultra-Fine 1 cc 31 G x 8 mm (5/16in), See Instructions, 3 refills lactulose 10 gm/15 ml oral syrup, 10 Gm= 15 mL, By Mouth, Daily, PRN lactulose 10 gm/15 ml oral syrup, 10 Gm= 15 mL, By Mouth, Daily, PRN Lamictal 200 mg oral tablet, 200 mg= 1 tablet, By Mouth, 2 times a day Lantus Solostar Pen 100 units/mL subcutaneous solution, 48 units, Subcutaneous Infusion, Daily, 11 refills Levothyroxine Tablet, 50 mcg, By Mouth, Daily Levothyroxine Tablet, 50 mcg, By Mouth, Daily Lidocaine 5% Patch, 1 each, Topically, Daily lithium 300 mg oral tablet, 300 mg= 1 tablet, By Mouth, 2 times a day, 1 refills magnesium oxide 400 mg oral tablet, 400 mg= 1 tablet, By Mouth, Daily magnesium oxide 400 mg oral tablet, 400 mg, By Mouth, Daily Melatonin Tablet, 3 mg, By Mouth, Daily at bedtime, PRN MiraLax Powder, 17 Gm= 1 pack/packet, By Mouth, Daily, PRN NaCL 0.9% Flush, 3 mL, IV Push, Every 8 hours NaCL 0.9% Flush, 3 mL, IV Push, Every 8 hours, PRN Nicotine Topical, 21 mg, Topically, Daily omeprazole 20 mg oral enteric coated capsule, 20 mg= 1 capsule, By Mouth, Daily One Touch UltraSoft Lancets, See Instructions oxyCODONE 5 mg oral tablet, 5 mg, By Mouth, Every 6 hours, PRN Ozempic 2 mg/3 mL (0.25 mg or 0.5 mg dose) subcutaneous solution Pen [place], 31 G x 8 mm BD Ultra Fine III, See Instructions, 11 refills Pepcid Tablet, 40 mg, 2 times a day Pepcid Tablet, 20 mg, By Mouth, 2 times a day perphenazine 4 mg oral tablet, 4 mg= 1 tablet, By Mouth, 3 times a day PLASTIC URINAL, See Instructions Protonix 20 mg oral delayed release tablet, 20 mg, By Mouth, Daily Remove Patch, 1 each, Topically, Daily Remove Lidocaine Patch, 1 each, Topically, Daily at bedtime Robitussin DM Liquid, 10 mL, By Mouth, Every 4 hours, PRN Senna Tablet, 8.6 mg= 1 tablet, By Mouth, 2 times a day, PRN SEROquel 25 mg oral tablet, 25 mg, By Mouth, Once, PRN Simethicone Tablet, 80 mg, Chew, 3 times a day, PRN simvastatin 20 mg oral tablet, 20 mg= 1 tablet, By Mouth, Daily at bedtime, 3 refills Tab-A-Devon oral tablet, 1 tablet, By Mouth, Daily tiZANidine 4 mg oral tablet, 4 mg= 1 tablet, By Mouth, Daily at bedtime tiZANidine 4 mg oral tablet, 4 mg, By Mouth, Daily at bedtime traZODone 100 mg oral tablet, 2 tablets, By Mouth, Daily at bedtime traZODone 50 mg oral tablet, 100 mg, By Mouth, Daily at bedtime Tylenol Caplet, 650 mg, By Mouth, Every 4 hours Vistaril pamoate 25 mg oral capsule, 25 mg= 1 capsule, By Mouth, 4 times a day Allergies Clozaril metformin??(DIARRHEA) Immunizations Vaccine Date Status pneumococcal 23-valent vaccine - Not Given Comments : Patient Refused influenza virus vaccine, inactivated - Not Given Comments : Patient Refused Health Maintenance Health Maintenance ?Pending??(in the next year) ?OverDue ?Diabetes Microalbumin due?03/24/13?and every 1?years ?5 yr Lipids Screening due?03/24/?and every 5?years ?Diabetes HbA1c due?04/29/21?and every 3?months ?Due?Colorectal Cancer Screening due?05/31/23?Variable frequency ?Diabetes Comprehensive Foot Exam due?05/31/23?Unknown Frequency ?Diabetes Dilated Retinal Eye Exam due?05/31/23?Variable frequency ?HIV Screening due?05/31/23?One-time only ?Health Care Proxy due?05/31/23?Variable frequency ?Hepatitis C Screening due?05/31/23?One-time only ?Prostate Cancer Shared Decision Making due?05/31/23?Variable frequency ?Due In Future?Basic Metabolic Panel not due until?05/29/24?and every 1?years ?Satisfied??(in the past 1 year) ?Satisfied?Basic Metabolic Panel on?05/30/23.?Satisfied by Contributor_system , [employer] ?Diabetes Screening on?05/31/23.?Satisfied by Contributor[employer]system , [employer] ?? Lab Results % Iron Saturation: 41 % (05/30/23) Abs. Baso: 0 k/mm3 (05/30/23) Abs. Eo: 0 k/mm3 (05/30/23) Abs. Imm Gran: 0 k/mm3 (05/30/23) Abs. Lymph: 0.8 k/mm3 (05/30/23) Abs. Marshall:??0.1 k/mm3??Low (05/30/23) Abs. Neut:??0.2 k/mm3??Low (05/30/23) Abs. NRBC: 0 k/mm3 (05/30/23) Albumin: 4.4 Gm/dL (05/29/23) Alkaline Phosphatase: 84 units/L (05/29/23) ALT (SGPT): 16 units/L (05/29/23) Anion Gap: 12 (05/30/23) APTT: 23.8 seconds (05/29/23) AST (SGOT): 20 units/L (05/29/23) Baso %: 0.9 % (05/30/23) Bicarbonate Level: 25 mmol/L (05/30/23) Bilirubin, Direct: 0.3 mg/dL (05/29/23) Bilirubin, Indirect: 0.6 mg/dL (05/29/23) Bilirubin, Total: 0.9 mg/dL (05/29/23) BUN: 10 mg/dL (05/30/23) Calcium: 8.8 mg/dL (05/30/23) Chloride:??97 mmol/L??Low (05/30/23) COVID-19 Antigen POC Result: NEGATIVE (05/29/23) COVID-19 PCR Result: NEGATIVE (05/29/23) COVID-19 PCR Specimen Source: NASAL (05/29/23) Creatinine-Blood: 0.7 mg/dL (05/30/23) D-Dimer: 0.39 mg/L FEU (05/29/23) Direct Antiglobulin Test, Anti-C3b,-C3d: Anti-C3d : Negative (05/30/23) Direct Antiglobulin Test, Anti-IgG: Anti-IgG : Negative (05/30/23) Eos %: 0.9 % (05/30/23) Est Creatinine Clearance: 117.59 mL/min (05/30/23) Estimated GFR Creatinine: 107 ML/MIN/1.73 M2 (05/30/23) Ferritin Level: 269 ng/mL (05/29/23) Fibrinogen: 289 mg/dL (05/29/23) Folic Acid Level: 21.5 ng/mL (05/30/23) Glucose Level:??106 mg/dL??High (05/30/23) Glucose, POC:??159 mg/dL??High (05/31/23) Haptoglobin:??<10??Low (05/30/23) Hct:??28.5 %??Low (05/30/23) Hgb:??9.7 Gm/dL??Low (05/30/23) High Sensitivity Troponin (HSTnT): 13 ng/L (05/29/23) Hold Blue Top: SPECIMEN DISCARDED AFTER 4 HOURS. (05/29/23) Imm Gran: 0 % (05/30/23) Influenza A PCR: NEGATIVE (05/29/23) Influenza B PCR: NEGATIVE (05/29/23) INR: 1.1 (05/29/23) Iron Binding Capacity, Estimated Total: 258 mcg/dL (05/30/23) Iron Binding Capacity, Unsaturated: 153 mcg/dL (05/30/23) Iron Level: 105 mcg/dL (05/30/23) LDH: 144 units/L (05/30/23) Leukemia/Lymphoma Evaluation: SPECIMEN COLLECTED FOR ANALYSIS (05/29/23) Lymph %:??70.1 %??High (05/30/23) MCH: 29.1 pg (05/30/23) MCHC: 34 g/dL (05/30/23) MCV: 85.6 femtoliters (05/30/23) Marshall %: 6.5 % (05/30/23) MPV: NOT MEASURED (05/30/23) Neut %:??21.6 %??Low (05/30/23) Nucleated RBC (Automated): 0 #/100 WBC'S (05/30/23) Platelet Count:??33 k/mm3??Low (05/30/23) Platelet Estimate: DECREASED (05/29/23) Potassium: 3.7 mmol/L (05/30/23) Protein, Total: 6.5 Gm/dL (05/29/23) Protime (PT): 11.4 seconds (05/29/23) RBC:??3.33 m/mm3??Low (05/30/23) RBC Morphology: MARKED (05/30/23) RDW-SD:??56.3 femtoliters??High (05/30/23) Retic Count: 1.8 % (05/29/23) Retic Count Corrected: 1.2 % (05/29/23) Retic Production Index:??0.8 %??Low (05/29/23) RSV PCR: NEGATIVE (05/29/23) Sodium: 134 mmol/L (05/30/23) TSH: 1.57 uIU/mL (05/30/23) Uric Acid: 5.4 mg/dL (05/29/23) Vitamin B12 Level: 842 pg/mL (05/29/23) WBC:??1.1 k/mm3??Critical (05/30/23) * Max MILLS, Lou Lombardo: PERFORM, MODIFY, MODIFY Event Display: Consultation Note Authored Date: Patient: ??EUGENIO WHITE ? Age:??57 Years?Sex:??Male?:??1965?? Reason for Consult/Visit Pancytopenia Requesting Physician Dr. Steve Hopkins Hematology/Oncology History Eugenio is a 57 year old male with past medical history of schizophrenia, bipolar disorder, diabetes mellitus, hypothyroidism,??hypertension who presented to the [facility] ER??via EMS??for complaints of??chest pain??for??the past few months. ??He tells me that the??pain is always there, states that hedoes not notice it when he is up??and walking or doing other activities. ??He describes it as a ??stabbing pain in the??area of his??sternum.?? Given the pain was ongoing he presented yesterday??for evaluation.?? Workup negative for??ACS distal troponin of 15, D-dimer within normal limits. ??Chest x-ray??unremarkable. ??Incidentally he was found to have pancytopenia??with??hemoglobin??of 10.3, hematocrit of 31.6. ??12-lead blood cell count of 2.0, ANC 200.?Platelet count of 36,000. When compared to prior labs from 2012 in our system, this is a drastic difference as at that time his totalwhite blood cell count was 10.2, hemoglobin 14.8, hematocrit 41.9, and platelet count of 148,000. ??The patient tells me that about 1 year ago his PCP Dr. Turpin at [facility] did some l abs and??he was told that he had low counts??at that time. ??He is uncertain if this was all of hiscounts??or??just some of them.?? He is unable to tell me how low his counts were at that time.?? Hetells me that he had his labs rechecked and did not hear anything further??from Dr. Turpin??regarding this issue so he assumed??that his counts had normalized. ??He has not had any issues with easy bleeding or bruising recently.?? He??is edentulous, does not brushes teeth.?? Has not had any issues with??dark or bloody bowel movements, hematuria, hematemesis.?? He denies any issues with easy bleeding or bruising.?? Overall he tells me he has not felt like himself for the past month but is unable to??characterize further, he??denies any??fevers, chills, night sweats.?? He tells me that he haslost some weight over the past 2 years??but is on??Ozempic and as a result does not have much??appetite. ??He tells me he is lost??20 pounds over??the course of 1 year.?? He does have intermittent lightheadedness or dizziness but believes that this is related to??low blood sugars if he does not eatenough. ??The patient does not have any shortness of breath, palpitations,??abdominal pain, nausea,vomiting, diarrhea. ??He does have chronic constipation which he tells me he takes [id number] softeners??and laxatives for as needed. Patient is unable to tell me the names of his medicati ons he takes with the exception of Ozempic, tells me a nurse manages his medications for him. Review of Systems Constitutional:??Denies unexplained??weight loss, fever, chills, weakness or fatigue. Eyes:??Denies visual loss, blurred vision, or double vision. ENT:??Denies hearing loss, sneezing, congestion, runny nose or sore throat. Respiratory:??Denies shortness of breath, cough or sputum production. Cardiovascular: + stabbing centrally located CP as above.??Denies palpitations, or pedal edema. Gastrointestinal:??+ Epigastric abdominal pain upon palpation today, denies any prior abdominal pain. + Chronic unchanged constipation. Denies??nausea, vomiting, diarrhea, melena, hematochezia. Neurologic:??+ intermittent lightheadedness and dizziness. Denies current headache, dizziness, syncope/near syncope, unilateral weakness, ataxia, numbness or tingling in the extremities. Musculoskeletal:??Denies arthralgias and myalgias. Hematologic/Lymphatics:??Denies easy??bleeding or bruising.??Denies painful lymph nodes or new lymphadenopathy. Skin:??Denies rash or itching. Endocrine:??Denies heat/cold intolerance. Psychiatric:??History of bipolar disorder and schizophrenia. Problem List/Past Medical History Ongoing Bipolar Diabetes mellitus type 2 Hypertension Hypothyroidism Obesity Schizophrenia Family History Unknown per the patient Social History Current smoker, 30-35 pack year history Declines current or prior ETOH use Allergies Clozaril metformin??(DIARRHEA) Medications Inpatient Acetaminophen Tablet, 650 mg, By Mouth, Every 4 hours, PRN aspirin 81 mg oral delayed release tablet, 81 mg, By Mouth, Daily atorvastatin 10 mg oral tablet, 10 mg, By Mouth, Daily clonazePAM 0.5 mg oral tablet, 0.5 mg, By Mouth, 2 times a day desmopressin 0.1 mg oral tablet, 0.2 mg, By Mouth, Daily at bedtime Docusate Sodium Capsule, 100 mg= 1 capsule, By Mouth, 2 times a day, PRN Enoxaparin Inj, 40 mg= 0.4 mL, Subcutaneous Injection, Every 24 hours ibuprofen 600 mg oral tablet, 600 mg, By Mouth, 3 times a day, PRN Insulin Glargine Inj, 40 units= 0.4 mL, Subcutaneous Injection, Daily Insulin LISPRO Sliding Scale, 2-10 units, Subcutaneous Injection, 3 times a day before meals lactulose 10 gm/15 ml oral syrup, 10 Gm= 15 mL, By Mouth, Daily, PRN Levothyroxine Tablet, 50 mcg, By Mouth, Daily magnesium oxide 400 mg oral tablet, 400 mg, By Mouth, Daily Melatonin Tablet, 3 mg, By Mouth, Daily at bedtime, PRN MiraLax Powder, 17 Gm= 1 pack/packet, By Mouth, Daily, PRN NaCL 0.9% Flush, 3 mL, IV Push, Every 8 hours NaCL 0.9% Flush, 3 mL, IV Push, Every 8 hours, PRN Pepcid Tablet, 40 mg, By Mouth, 2 times a day Robitussin DM Liquid, 10 mL, By Mouth, Every 4 hours, PRN Senna Tablet, 8.6 mg= 1 tablet, By Mouth, 2 times a day, PRN Simethicone Tablet, 80 mg, Chew, 3 times a day, PRN tiZANidine 4 mg oral tablet, 4 mg, By Mouth, Daily at bedtime traZODone 50 mg oral tablet, 100 mg, By Mouth, Daily at bedtime Home Alcohol Pads, See Instructions, 11 refills Alcohol Wipes, See Instructions, 1 refills Alcohol Wipes, See Instructions, 11 refills aspirin 81 mg oral enteric coated tablet, 81 mg= 1 tablet, By Mouth, Daily atorvastatin 10 mg oral tablet, 10 mg= 1 tablet, By Mouth, Daily clonazePAM 0.5 mg oral tablet, 0.5 mg= 1 tablet, By Mouth, 2 times a day Clozaril 100 mg oral tablet, 100 mg= 1 tablet, By Mouth, 3 times a day COMFRT TOUCH PAD ALC PREP, See Instructions desmopressin 0.1 mg oral tablet, 0.2 mg= 2 tablet, By Mouth, Daily at bedtime Flonase, 1 sprays, Daily Freestyle alo 2 14-day sensors, See Instructions, 11 refills Freestyle alo 2 reader, See Instructions Freestyle Lite Lancets, See Instructions, 11 refills Freestyle Lite Monitor, See Instructions Freestyle Lite Test Strips, See Instructions, 3 refills ibuprofen 600 mg oral tablet, 600 mg= 1 tablet, By Mouth, 3 times a day, PRN Insulin Syringe, BD Ultra-Fine 1 cc 31 G x 8 mm (5/16in), See Instructions, 5 refills Insulin Syringe, BD Ultra-Fine 1 cc 31 G x 8 mm (5/16in), See Instructions, 3 refills lactulose 10 gm/15 ml oral syrup, 10 Gm= 15 mL, By Mouth, Daily, PRN Lamictal 200 mg oral tablet, 200 mg= 1 tablet, By Mouth, 2 times a day Lantus Solostar Pen 100 units/mL subcutaneous solution, 48 units, Subcutaneous Infusion, Daily, 11 refills Levothyroxine Tablet, 50 mcg, By Mouth, Daily lithium 300 mg oral tablet, 300 mg= 1 tablet, By Mouth, 2 times a day, 1 refills magnesium oxide 400 mg oral tablet, 400 mg= 1 tablet, By Mouth, Daily omeprazole 20 mg oral enteric coated capsule, 20 mg= 1 capsule, By Mouth, Daily One Touch UltraSoft Lancets, See Instructions Ozempic 2 mg/3 mL (0.25 mg or 0.5 mg dose) subcutaneous solution Pen [place], 31 G x 8 mm BD Ultra Fine III, See Instructions, 11 refills Pepcid Tablet, 40 mg, 2 times a day perphenazine 4 mg oral tablet, 4 mg= 1 tablet, By Mouth, 3 times a day PLASTIC URINAL, See Instructions simvastatin 20 mg oral tablet, 20 mg= 1 tablet, By Mouth, Daily at bedtime, 3 refills Tab-A-Devon oral tablet, 1 tablet, By Mouth, Daily tiZANidine 4 mg oral tablet, 4 mg= 1 tablet, By Mouth, Daily at bedtime traZODone 100 mg oral tablet, 2 tablets, By Mouth, Daily at bedtime Tylenol Caplet, 650 mg, By Mouth, Every 4 hours Vistaril pamoate 25 mg oral capsule, 25 mg= 1 capsule, By Mouth, 4 times a day Physical Exam Vitals & Measurements T:??97.9?F?? TMIN:??97.7?F?? TMAX:??98.4?F?? HR:??69??(Peripheral)?? RR:??18?? BP:??111/67?? SpO2:??99%?? WT:??93??kg?? General: Appears well nourished. Sitting upright on the stretcher in NAD. Neurologic: Alert and oriented to self and location, patient not a great historian but has no??focal neurologic deficits noted. Cranial nerves II-XII grossly intact. HEENT: Head is atraumatic and normocephalic. ??No scleral icterus. ??No cyanosis. Respiratory: Lungs are clear to auscultation in all lung mcallister, no wheezes, rales, or rhonchi appreciated. Cardiovascular: Heart rate and rhythm are regular, no murmurs, rubs, or gallops. Gastrointestinal: Abdomen is soft,??he does wince upon palpation??of the epigastric and LUQ ??to palpation and non-distended. Normal bowel sounds appreciated in all 4 quadrants. No palpable hepatomegaly or splenomegaly. Skin: No rashes, lesions, or ecchymoses. Extremities: No lower extremity edema Lab Results/Pathology CBC?? CMP?? Coag?? Abs. NRBC: 0 k/mm3 (05/29/23 03:33:00) Alkaline Phosphatase: 84 units/L (05/29/23 07:53:00) D-Dimer: 0.39 mg/L FEU (05/29/23 07:53:00) Hct:??31.6 %??Low (05/29/23 03:33:00) ALT (SGPT): 16 units/L (05/29/23 07:53:00) INR: 1.1 (05/29/23 07:53:00) Nucleated RBC (Automated): 0 #/100 WBC'S (05/29/23 03:33:00) Anion Gap: 8 (05/29/23 03:33:00) Protime (PT): 11.4 seconds (05/29/23 07:53:00) RBC:??3.57 m/mm3??Low (05/29/23 03:33:00) AST (SGOT): 20 units/L (05/29/23 07:53:00) ?? RDW-SD:??58.5 femtoliters??High (05/29/23 03:33:00) Bicarbonate Level: 29 mmol/L (05/29/23 03:33:00) ?? WBC:??2 k/mm3??Low (05/29/23 03:33:00) Bilirubin, Total: 0.9 mg/dL (05/29/23 07:53:00) ? BUN: 13 mg/dL (05/29/23 03:33:00) ? Calcium: 9.5 mg/dL (05/29/23 03:33:00) ? Chloride: 100 mmol/L (05/29/23 03:33:00) ? Creatinine-Blood: 0.8 mg/dL (05/29/23 03:33:00) ? Estimated GFR Creatinine: 103 ML/MIN/1.73 M2 (05/29/23 03:33:00) ? Glucose Level:??131 mg/dL??High (05/29/23 03:33:00) ? Potassium: 4.2 mmol/L (05/29/23 03:33:00) ? Protein, Total: 6.5 Gm/dL (05/29/23 07:53:00) ? Sodium: 137 mmol/L (05/29/23 03:33:00) ?? Diagnostic Results (05/29/2023 03:00 EST Chest 2 Views Frontal and Lat) Reason For Exam Shortness of Breath ?? RESULT: Chest 2 Views Frontal and Lat PA and lateral chest dated May 29, 2023. Comparison films are from July 23, 2015. ?? HISTORY: Shortness of breath. ?? FINDINGS: The cardiac silhouette is within normal limits for size. Hilar and mediastinal structuresare unremarkable. No airspace infiltrate or pleural effusion is identified. ?? Degenerative changes are noted in the spine. ?? IMPRESSION: ?? No evidence of acute pulmonary disease. No significant interval change. [1] Assessment/Plan Eugenio is a 57 year old male with past medical history of schizophrenia, bipolar disorder, diabetes mellitus, hypothyroidism,??hypertension who presented to the [facility] ER??via EMS??for complaints of??chest pain??for??the past few months. Workup unremarkable for chest pain with the exception of newpancytopenia. ?? Recommend further workup including - LDH - Haptoglobin (if low will needs Jayesh test) - Flow cytometry - Reticulocyte count - Peripheral smear - uric acid - fibrinogen - Iron panel, B12, and folate - Patient with no palpable liver or spleen on examination today however is TTP on exam, have ordered US of liver and spleen as well. - Recommend obtaining covid swab as well. - May be secondary to Clozaril, will await psychiatry evaluation and will see if this medication could potentially be stopped. - Pending workup patient may need bone marrow biopsy in the future. - Given the patient tells me he previously had low blood counts detected by his PCP about one year ago, I have reached out to our admin team to obtain these records and labs for our review. Total Time Spent I personally spent a total of??80 minutes, including both [id number] and gql-tzwu-mg-face time onthe date of the encounter, addressing the above diagnoses. Activities performed in this time include chart review, obtaining / reviewing history, performing amedically necessary evaluation, documentation and Care Coordination ?? [1]??Chest 2 Views Frontal and Lat; Brian GONSALVES, Julio Calloway 05/29/2023 03:00 EST Note * Lisa Jane RN: PERFORM Event Display: Discharge/Transfer Note Hospital Authored Date: [id number] Nursing Discharge Note Entered On: 06/10/2023 12:22 EST Performed On: 06/10/2023 12:20 EST by Lisa Jane RN Nursing Discharge Note 2 Discharge Time : 06/10/2023 12:15 EST Discharge Level of Care at Discharge : Homehealth/VNA Discharge VNA/Hospice/Home Care(v001) : [facility] Patient Left Unit Via : Wheelchair Patient Accompanied Off Unit with : Responsible adult DC Instructions Provided & Signed by Pt : Yes Patient Understands D/C Instructions : Unable Patient Instructions Discharge Signed : Yes Discharge Comments : no questions or concerns. Nurses phone to call if any questions or concerns Did Pt have Specialty Bed or Wound Vac : No Lisa Jane RN - 06/10/2023 12:20 EST * aCrlee GONSALVES, Felice Owens: MODIFY, MODIFY, PERFORM Event Display: Discharge/Transfer Note Hospital Authored Date: [id number] Patient: ??PATSY, EUGENIO ? Age:??57 Years?Sex:??Male?:??1965?? Patient Information Discharge Location: [facility] Primary Care Physician: Mando Turpin MD Admit Date/Time: 05/29/23 07:40 Discharge Disposition Discharge Disposition: ??longterm Discharge Diagnosis Chest pain (R07.9) Pancytopenia (D61.818) Pulmonary nodule, right (R91.1) Schizophrenia (F20.9) Splenomegaly (R16.1) Bipolar disorder (F31.9) Diabetes mellitus (E11.9) Hypertension (I10) Hypothyroidism (E03.9) ? _ Discharge Medications Acetaminophen (acetaminophen 325 mg oral tablet)?650?Milligram?By Mouth?Every 4 hours?as needed?Temperature Greater than 100.5?Pain , Mild Atorvastatin (atorvastatin 10 mg oral tablet)?1?tab(s)?10?Milligram?By Mouth?Daily Clonazepam (clonazePAM 1 mg oral tablet)?1?tab(s)?1?Milligram?By Mouth?3 times a day?for 7?Days Desmopressin (desmopressin 0.1 mg oral tablet)?2?tab(s)?0.2?Milligram?By Mouth?Daily at bedtime Durable Medical Equipment (Alcohol Wipes)?See Instructions?use 3x/day for skin prep Durable Medical Equipment (Insulin Syringe, BD Ultra-Fine 1 cc 31 G x 8 mm (5/16in))?See Instructions?USE 4 PER DAY Durable Medical Equipment (One Touch UltraSoft Lancets)?See Instructions?TEST BS 2-3 TIMES PER DAY Durable Medical Equipment (Alcohol Wipes)?See Instructions?use 3x/day for skin prep Durable Medical Equipment (Insulin Syringe, BD Ultra-Fine 1 cc 31 G x 8 mm (5/16in))?See Instructions?4 x a day injection, 90 day supply Durable Medical Equipment (Pen [place], 31 G x 8 mm BD Ultra Fine III)?See Instructions?T2DM E11.9 for injecting insulin 4x daily Durable Medical Equipment (Freestyle Lite Monitor)?See Instructions?DX E11.9 Durable Medical Equipment (Alcohol Pads)?See Instructions?use to clean finger tips for glucose monitoring 5x/day ??DxE11.9 Durable Medical Equipment (Freestyle Lite Lancets)?See Instructions?test blood sugar 5x day, DX E11.9, Durable Medical Equipment (Freestyle Lite Test Strips)?See Instructions?test blood sugar 4x day, DX E11.9 Insulin Glargine (Lantus Solostar Pen 100 units/mL subcutaneous solution)?35?unit(s)?Subcutaneous Infusion?Daily Lactulose (lactulose 10 gm/15 ml oral syrup)?15?Milliliter?10?gram?By Mouth?Daily?as needed?as needed for constipation Levofloxacin (levoFLOXacin 250 mg oral tablet)?1?tab(s)?250?Milligram?By Mouth?Daily?for 28?Days?prophylaxis dose. Levothyroxine (Levothyroxine Tablet)?50?Microgram?By Mouth?Daily Magnesium Oxide (magnesium oxide 400 mg oral tablet)?1?tab(s)?400?Milligram?By Mouth?Daily Miscellaneous Rx (PLASTIC ??URINAL)?See Instructions?USE DIRECTED AT HOME Miscellaneous Rx (Freestyle alo 2 reader)?See Instructions?Use to check BG up to 5 times/day Miscellaneous Rx (Freestyle alo 2 14-day sensors)?See Instructions?Use to check BG up to 5 times/day, change every 14 days, wear on the back of the upper arm Miscellaneous Rx (COMFRT TOUCH PAD ALC PREP)?See Instructions?USE DIRECTED TO CLEAN AREA 5TIMES A DAY Multivitamin (Tab-A-Devon oral tablet)?1?tab(s)?By Mouth?Daily Pantoprazole (Protonix 20 mg oral delayed release tablet)?20?Milligram?By Mouth?Daily Perphenazine (perphenazine 2 mg oral tablet)?See Instructions?12 mg By Mouth 3 times a day semaglutide (Ozempic 2 mg/3 mL (0.25 mg or 0.5 mg dose) subcutaneous solution)?INJECT 0.5mg UNDER THE SKIN EVERY WEEK Tizanidine (tiZANidine 4 mg oral tablet)?4?Milligram?1?tablet?By Mouth?Daily at bedtime Trazodone (traZODone 100 mg oral tablet)?2 tablets?By Mouth?Daily at bedtime ? Quality Measures Tobacco Use Treatment:?Cessation Medication Prescribed on Discharge:??Offered and Patient Refuses Cessation Medication ? Durable Medical Equipment Discharge recommendations: Home with services (06/05/23) Name of Agency #1: [facility] (06/09/23) Service Categories #1: Care Home (06/09/23) Service Comments #1: The nurse will call you to arrange visit time, please call agency with questions (06/09/23) Ambulatory devices needed: None (06/09/23) ? Medications Started Levaquin prophylaxis Medications Discontinued ASA Lisinopril ?Metoprolol ( pt is unsure if he was taking it before hospitalization) Doses Changed Clonazepam 1mg tid Lantus 48--> 35 units daily Allergies Allergies ?(Active and Proposed Allergies Only) Clozaril? (Severity: Unknown severity, Onset: Unknown) metformin? (Severity: Unknown severity, Onset: Unknown) ?Reactions: DIARRHEA ?Comments: Marilee, Team Otr Truck Driver, states the patient has been taking Metformin with noside effects. ??We will ?cancel this as an allergy in his profile to lessen confusion in the future. ? [facility]/u f/u CBC with diff in 1 week Ensure f/u with Hematology, Psychiatry, Endocrine as outpt f/u pending results from BM biopsy -monitor BP and resume meds if needed - reevaluate need for ASA in the setting of thrombocytopenia - f/u CT chest for pulm nodule in 1 yr Hospital Course 57 year old male with past medical history of schizophrenia, bipolar disorder, diabetes mellitus- on insulin , hypothyroidism, hypertension, recent covid infection ( 04/2023) presents with sub acute atypical chest pain x 1 month. ACS ruled out and admitted for pancytopenia and behavior changes. pancytopenia work up showed Haptoglobin is low, LDH wnl and Jayesh test neg. Fibrinogen is normal. renal function stable. pt reports allergy to Clozaril and has not used for > 6 yrs now but has been doing well on perphenazine 12 mg TID chronically--> Held initially but resumed as per psychiatry due to escalated behavior issues. Hematology consulted- okay to continue perphenazine; had Bone marrow biopsy on 06/05/23 - pending results of biopsy. Hematology plan to f/u biopsy results and arrange f/u in office. Hospital course was complicated due to behavior issues- requiring constant training development manager but patient clinically improved with medication adjustment. Psych team cleared him for discharged with no active SI/ agitation episodes and he has been doing well without sitter. Clinically continue to improve ; labs continue to show pancytopenia but stable. Hematology will follow up out patient and patient is clinically stable to be discharged home with following instructions ?? - take clonazepam 1 mg Thrice daily. - donot drive or operate any machinery if taking sedatives/ clonazepam. - follow up [facility] out patient hematology team for bone marrow biopsy - follow up with primary care physician - call them to schedule follow up appointment. - continue to take 12 mg thrice daily Perphenazine. - take 35 units of lantus daily instead of 48 units for diabetes. - follow up diabetic diet - follow up out patient endocrinology out patient for diabetes management. ?? - Pulmonary nodule, right (R91.1): - ?CT chest showed 2 mm right upper lobe nodule. follow up with optional CT scan chest in 12 months ?? - Bipolar disorder (F31.9)/Schizophrenia (F20.9) - continue rest of home medications as above. ?HTN: - Blood pressure has been stable off medications while in hospital. continue to monitor BP without medications and f/u with PCP ? Objective Assessment and Plan Discharge Planning:? Vital Signs?? Temperature: 97.5 DegF (06/10/23 08:06:00) Temperature Route: Oral (06/10/23 08:06:00) Pulse Rate: 84 bpm (06/10/23 08:06:00) Respiratory Rate: 18 br/min (06/10/23 08:06:00) Systolic Blood Pressure: 105 mm Hg (06/10/23 08:06:00) Diastolic Blood Pressure:??54 mm Hg??Low (06/10/23 08:06:00) Blood pressure sites: Arm, right (06/10/23 08:06:00) Mean Arterial Pressure: 71 mm Hg (06/10/23 08:06:00) Pulse Pressure: 51 mm Hg (06/10/23 08:06:00) Oxygen Saturation: 99 % (06/10/23 08:06:00) Mode of Delivery (Oxygen): Room air (06/10/23 08:06:00) Early Warning Score: 2 (06/10/23 08:07:08) ? . Physical Exam ?General:??No apparent distress, lying in bed comfortably ?HEENT:?? PERRLA, Moist oral mucous membranes ?Heart:??S1 S2 heard, regular rate and rhythm ?Lungs:??Bilateral air entry fair.?Abdomen:??Soft, NT, ND, bowel sounds normal?Neuro:??No focal neurological deficit, AAO x 3. ?Psychiatry:?Normal mood and affect ?skin:??warm and dry ?Extremities:??No edema, normal pulses ? Consultants Hematology: Dr. Olivas Psychiatry Pending Results ?? Cytogenetics Report ordered on 06/05/2023 Cytogenetics Report ordered on 06/05/2023 [facility] Evaluation ordered on 06/04/2023 Pathology Tissue Request ordered on 06/05/2023 Patient Education Titles Thrombocytopenia?? Neutropenia?? Follow-Up Appointments Added Follow Up ?Time Frame ?Comments [facility]?06/24/2023 09:00?Jose Lewis (??Consumer Sales Representative). Call [phone] for any questions Markus Yousif?call to discuss psychiatry??follow up Mando Turpin MD?1 week: call to discuss follow up visit Patient Instructions ?? - take clonazepam 1 mg Thrice daily. - do not??drive or operate any machinery if taking sedatives/ clonazepam. - follow up with out patient hematology team for bone marrow biopsy ( expect call with appointment) -Due to??decreased blood cell count specifically??ANC less than 500:??Take Levaquin 250 mg??once daily??for prophylactic dose to avoid bacterial infection.?? Follow-up labs and with hematology outpatient. -??[facility] hematology/oncology:??[address], [place], [place].Phone #??[phone]. - follow up with primary care physician - call??them to schedule follow up appointment. - continue to take 12 mg thrice daily Perphenazine. - take 35 units of Lantus daily instead of 48 units for diabetes. - follow up diabetic diet - follow up out patient endocrinology out patient for diabetes management. ?? - Pulmonary nodule, right (R91.1): - ?? Your CT chest showed 2 mm right upper lobe nodule. follow up with optional CT scan chest in 12 months. PCP will have to arrange this follow up scan ?? - Blood pressure has been stable off medications while in hospital. continue to monitor BP without medications and f/u with PCP ? Post Discharge Care Code Status: ??Full Resuscitation ?? Discharge ?06/10/23 10:33:00 EST Discharge Prescriptions ?ePrescribed, 06/09/23 16:04:00 EST Home Health Face to Face ^HomeHealthFTF Results Discharge Labs BACTERIOLOGY Green Tube Chromosome Study SPECIMEN COLLECTED FOR ANALYSIS ()?? 06/05/2023 17:40 Lavender Tube Neoplastic SPECIMEN COLLECTED FOR ANALYSIS ()?? 06/05/2023 17:40 ?? BLOOD BANK Blood Type A Positive ()?? 06/02/2023 16:16 Antibody Screen Negative ()?? 06/02/2023 16:16 Direct Antiglobulin Test, Anti-IgG Anti-IgG : Negative ()?? 05/30/2023 08:27 Direct Antiglobulin Test, Anti-C3b,-C3d Anti-C3d : Negative ()?? 05/30/2023 08:27 ?? BLOOD COUNT & DIFF WBC 1.6 k/mm3 (Critical)?? 06/08/2023 04:43 RBC 3.11 m/mm3 (Low)?? 06/08/2023 04:43 Hgb 9.1 Gm/dL (Low)?? 06/08/2023 04:43 Hct 27.3 % (Low)?? 06/08/2023 04:43 MCV 87.8 femtoliters ()?? 06/08/2023 04:43 MCH 29.3 pg ()?? 06/08/2023 04:43 MCHC 33.3 g/dL ()?? 06/08/2023 04:43 Platelet Count 29 k/mm3 (Critical)?? 06/08/2023 04:43 RDW-SD 59.7 femtoliters (High)?? 06/08/2023 04:43 MPV NOT MEASURED femtoliters ()?? 06/08/2023 04:43 Nucleated RBC (Automated) 0.0 #/100 WBC'S ()?? 06/08/2023 04:43 Abs. NRBC 0.0 k/mm3 ()?? 06/08/2023 04:43 Abs. Neut 0.2 k/mm3 (Low)?? 06/08/2023 04:43 Abs. Lymph 1.3 k/mm3 ()?? 06/08/2023 04:43 Abs. Marshall 0.1 k/mm3 (Low)?? 06/08/2023 04:43 Abs. Eo 0.0 k/mm3 ()?? 06/08/2023 04:43 Abs. Baso 0.0 k/mm3 ()?? 06/08/2023 04:43 Neut % 12.2 % (Low)?? 06/08/2023 04:43 Lymph % 82.7 % (High)?? 06/08/2023 04:43 Marshall % 4.5 % ()?? 06/08/2023 04:43 Eos % 0.6 % ()?? 06/08/2023 04:43 Baso % 0.0 % ()?? 06/08/2023 04:43 Myelocytes % 0.9 % ()?? 06/02/2023 10:05 Band % 0.9 % ()?? 06/03/2023 03:45 Atypical Lymph % 0.9 % ()?? 06/03/2023 03:45 Peripheral Blood Smear Review Interp. Reviewed by pathologist. ()?? 05/30/2023 15:42 RBC Morphology MODERATE ()?? 06/08/2023 04:43 Platelet Estimate DECREASED ()?? 06/04/2023 06:00 Retic Count 1.8 % ()?? 05/29/2023 13:40 Retic Count Corrected 1.2 % ()?? 05/29/2023 13:40 Retic Production Index 0.8 % (Low)?? 05/29/2023 13:40 Imm Gran 0.0 % ()?? 06/08/2023 04:43 Abs. Imm Gran 0.0 k/mm3 ()?? 06/08/2023 04:43 ? CARDIAC High Sensitivity Troponin (HSTnT) 13 ng/L ()?? 05/29/2023 06:00 ? CHEM GENERAL Sodium 138 mmol/L ()?? 06/08/2023 04:43 Potassium 4.2 mmol/L ()?? 06/08/2023 04:43 Chloride 106 mmol/L ()?? 06/08/2023 04:43 Bicarbonate Level 24 mmol/L ()?? 06/08/2023 04:43 Anion Gap 8 ()?? 06/08/2023 04:43 Glucose Level 169 mg/dL (High)?? 06/08/2023 04:43 Glucose, POC 256 mg/dL (High)?? 06/09/2023 20:27 BUN 11 mg/dL ()?? 06/08/2023 04:43 Creatinine-Blood 0.7 mg/dL ()?? 06/08/2023 04:43 Estimated GFR Creatinine 109 ML/MIN/1.73 M2 ()?? 06/08/2023 04:43 Calcium 9.1 mg/dL ()?? 06/08/2023 04:43 Protein, Total 6.7 Gm/dL ()?? 06/01/2023 11:48 Albumin 4.4 Gm/dL ()?? 06/01/2023 11:48 AG Ratio 1.9 ()?? 06/01/2023 11:48 LDH 144 units/L ()?? 05/30/2023 15:42 Alkaline Phosphatase 95 units/L ()?? 06/01/2023 11:48 AST (SGOT) 21 units/L ()?? 06/01/2023 11:48 ALT (SGPT) 20 units/L ()?? 06/01/2023 11:48 Bilirubin, Total 1.3 mg/dL (High)?? 06/01/2023 11:48 Bilirubin, Direct 0.3 mg/dL ()?? 05/29/2023 07:53 Bilirubin, Indirect 0.6 mg/dL ()?? 05/29/2023 07:53 Vitamin B12 Level 842 pg/mL ()?? 05/29/2023 13:40 Folic Acid Level 21.5 ng/mL ()?? 05/30/2023 15:42 Uric Acid 5.4 mg/dL ()?? 05/29/2023 13:40 Iron Level 105 mcg/dL ()?? 05/30/2023 15:42 Iron Binding Capacity, Unsaturated 153 mcg/dL ()?? 05/30/2023 15:42 Iron Binding Capacity, Estimated Total 258 mcg/dL ()?? 05/30/2023 15:42 % Iron Saturation 41 % ()?? 05/30/2023 15:42 Ferritin Level 269 ng/mL ()?? 05/29/2023 13:40 ? COAG INR 1.1 ()?? 06/01/2023 11:48 Protime (PT) 11.7 seconds (High)?? 06/01/2023 11:48 APTT 23.8 seconds ()?? 05/29/2023 16:55 Fibrinogen 289 mg/dL ()?? 05/29/2023 13:40 D-Dimer 0.39 mg/L FEU ()?? 05/29/2023 07:53 ? ENDOCRINE/TUMOR MARKER TSH 1.57 uIU/mL ()?? 05/30/2023 15:42 ? FLOW CYTOMETRY/IMMUNOPHENOTYPING Leukemia/Lymphoma Evaluation SPECIMEN COLLECTED FOR ANALYSIS ()?? 05/29/2023 16:55 ? HEME OTHER Bone Marrow SEE SEPARATE REPORT ()?? 06/05/2023 17:40 Hold Blue Top SPECIMEN DISCARDED AFTER 4 HOURS. ()?? 05/29/2023 03:33 ?? IMMUNOLOGY GENERAL IgG 703 mg/dL ()?? 06/01/2023 11:48 IgA 399 mg/dL ()?? 06/01/2023 11:48 IgM 46 mg/dL ()?? 06/01/2023 11:48 Immunofixation-Serum Normal immunofixation pattern (No monoclonal protein detected) ()?? 06/01/2023 11:[address] [place] [place] Light Chains 21.48 mg/L (High)?? 06/01/2023 11:48 Free Lambda Light Chains 16.97 mg/L ()?? 06/01/2023 11:48 Free KappaRatio 1.27 ()?? 06/01/2023 11:48 Haptoglobin <10 mg/dL (Low)?? 05/30/2023 15:42 ?? MISC. CHEMISTRY Total Protein, SPE 6.7 Gm/dL ()?? 06/01/2023 11:48 Albumin, SPE 4.0 Gm/dL ()?? 06/01/2023 11:48 Alpha 1, SPE 0.3 Gm/dL ()?? 06/01/2023 11:48 Alpha 2, SPE 0.6 Gm/dL ()?? 06/01/2023 11:48 Beta, SPE 1.1 Gm/dL ()?? 06/01/2023 11:48 Gamma, SPE 0.7 Gm/dL ()?? 06/01/2023 11:48 Beta, Restricted Band Not Applicable ()?? 06/01/2023 11:48 Beta, Second Restricted Band Not Applicable Gm/dL ()?? 06/01/2023 11:48 Gamma, Restricted Band Not Applicable Gm/dL ()?? 06/01/2023 11:48 Gamma, Second Restricted Band Not Applicable Gm/dL ()?? 06/01/2023 11:48 Interpretation, SPE No apparent monoclonal protein identified. Normal high resolution serum ()?? 06/01/2023 11:48 Hold Gel Top SPECIMEN DISCARDED AFTER 1 WEEK ()?? 06/02/2023 10:05 ?? URINE OTHER Est Creatinine Clearance 117.59 mL/min ()?? 06/04/2023 07:53 ? VIROLOGY Influenza A PCR NEGATIVE ()?? 05/29/2023 16:01 Influenza B PCR NEGATIVE ()?? 05/29/2023 16:01 RSV PCR NEGATIVE ()?? 05/29/2023 16:01 COVID-19 PCR Specimen Source NASAL ()?? 06/08/2023 10:00 COVID-19 PCR Result NEGATIVE ()?? 06/08/2023 10:00 COVID-19 Antigen POC Result NEGATIVE (N)?? 05/29/2023 16:05 ? Microbiology ?? COVID-19 (2018 Novel Coronavirus) PCR?? Completed?? Source: Nasal Body Site: Nose Collected Dt/Tm: 06/04/2023 18:22 Last Updated Dt/Tm: 06/04/2023 19:38 COVID-19 (2018 Novel Coronavirus) PCR?? Completed?? Source: Nasal Body Site: Nose Collected Dt/Tm: 06/08/2023 10:00 Last Updated Dt/Tm: 06/08/2023 10:49 ? Imaging(s) ?CT Angio Chest ?? 05/29/2023 17:33??by Ulysses Mendez MD ?IMPRESSION: ?? 1. No evidence of pulmonary embolism. 2. Mild esophagitis. 3. Splenomegaly 4. 2 mm right upper lobe nodule. If low risk for malignancy, no routine follow- up. If high risk, optional CT at 12 months. If unchanged, no further follow-up needed per Guidelines for Management of Incidental Pulmonary Nodules Detected on CT Images: From the Fleischner Society 2017. ?Echocardiogram - Complete ?? 05/29/2023 14:24??by Jumana GONSALVES, Suzanne N ?Summary ??The left ventricle is normal in size. Systolic function is preserved. ??Ejection fraction is 55-60%. No definite wall motion abnormalities detected ??but cannot be excluded. Diastolic function could not be determined. ?? The left atrium is normal in size. ?? The right ventricle is normal in size. Function is preserved. ?? The right atrium is normal in size. ?? Comparison ??No prior study available for comparison. ? Consults(s) ?Consultation Note ?? 05/31/2023 09:26??by Gualberto Del Angel DO ?Consultation Note ?? 05/29/2023 10:55??by Lou Mendoza ?Other Consult ? 35_ minutes spent on discharge * Ana Rodas RN: PERFORM, SIGN, VERIFY Event Display: Case Management Discharge Plan Authored Date: [id number] Patient: EUGENIO WHITE Age: 57 years Sex: Male : 1965 Associated Diagnoses: None Author: Ana Rodas RN Discharge Plan Case Management Discharge Plan : Case Management Discharge Plan Data 06/09/2023 14:56 EST Discharge Level of Care at Discharge Homehealth/VNA Discharge VNA/Hospice/Home Care [facility] Discharge Transportation Arranged [facility] [address] [facility] [phone] Discharge Arranged Transport Date/Time 06/10/2023 12:00 (Modified) Mode of Transportation Arranged Chair Van Name of Agency #1 [facility] Service Categories #1 Care Home Service Comments #1 The nurse will call you to arrange visit time, please call agency with questions (Modified) Additional Info for D/C Instructions Additional Info for D/C Instructions * Ana Rodas RN: VERIFY, PERFORM, SIGN Event Display: Case Management Discharge Plan Authored Date: [id number] Patient: EUGENIO WHITE Age: 57 years Sex: Male : 1965 Associated Diagnoses: None Author: Ana Rodas RN Discharge Plan Case Management Discharge Plan : Case Management Discharge Plan Data 06/09/2023 14:56 EST Discharge Level of Care at Discharge Homehealth/VNA Discharge VNA/Hospice/Home Care [facility] Discharge Transportation Arranged [facility] [address] [facility] [phone] Discharge Arranged Transport Date/Time 06/10/2023 12:00 (Modified) Mode of Transportation Arranged Chair Van Name of Agency #1 [facility] Service Categories #1 Care Home Service Comments #1 The nurse will call you to arrange visit time, please call agency with questions (Modified) * Lucinda VALERA, Lisa Babin: PERFORM Event Display: Patient Education/Instruction Authored Date: Inpatient Adult Discharge Instructions. [address] [address] Name: EUGENIO WHITE : 1965?? Visit: 05/29/2023 07:40?? Current Date: 06/10/2023 11:03 ?? Account: [id number]?? Inpatient Adult Discharge Instructions We would like to thank you for allowing us to assist you with your healthcare needs. The following includes patient education materials and information regarding your injury/illness. Our entire staffstrives to provide an excellent experience for our patients and their families. PLEASE ENSURE YOU FOLLOW-UP PER THE INSTRUCTIONS BELOW! ?? YOUR OPINION IS IMPORTANT TO US! Please complete the survey you may receive by mail or email. Your feedback will be used to make improvements to the healthcare experiences of our patients and their families. Surveys are administered by [employer] ?? If further treatment with your primary care physician or another doctor is recommended, it is important for you to keep the appointment. Call your primary care physician or return to the Emergency Department immediately if your condition worsens, fails to improve, or new symptoms develop. If you need to find a doctor, you can call [facility] Link for a referral at [phone] or toll free at [phone] or log in to [email or web address].. ?? [facility], in keeping with [facility] guidance, no longer requires face masks for staff, patientsor visitors in most situations. Similiar to time spent indoors at other locations, there is the chance that you were exposed to repiratory viruses during your time with us (such as flu or COVID-19). If you develop symptoms concerning for a viral respiratory infection, please seek testing (and treatment if indicated) from your medical provider or home test kit. ?? You can view and manage your care through the patient portal or by using a health care karon of your choosing. [employer] is a website that allows you to securely view your medical information including your hospital discharge summary, office visit summaries, medications and follow-up visits. You can also request appointments, renew medications, and request access to your medical information using a health care karon of your choosing, or just ask a question. You can enroll at [email or web address] or register during your next office visit. You have been discharged from [facility], Patient Care Unit: [id number]??. If you have any questions regarding these instructions, including results of studies pending, afteryou leave, please call us and we will be happy to assist you 24/11. [facility] Your Care Team Attending Physician Felice Bejarano MD?? Consulting Providers Felice Bejarano MD?? Discharging Providers Felice Bejarano MD Reason for Your Visit sob and chest pain x 1 month since he had covid. well appearing. LSCTA.?? Your Diagnosis Bipolar disorder Chest pain Diabetes mellitus General medical Hypertension Hypothyroidism Pancytopenia Pulmonary nodule, right Schizophrenia Splenomegaly Tests Performed Below is a partial list of the tests performed during your hospitalization. You may have had other tests and procedures not included in this list. Please discuss all test results with your provider. Basic Metabolic Panel BONE MARROW CBC?-- Results Pending -- CBC w/ Differential COMPREHENSIVE METABOLIC PANL COVID-19 (2019 Novel Coronavirus) PCR COVID-19 ANTIGEN POC COVID-19, RSV, and Flu A/B, Rapid PCR D-DIMER Direct Jayesh Test Ferritin Fibrinogen Folate Level Folic Acid Level FREE KAPPA & LAMBDA LIGHT CHAINS, SERUM GENETICS BONE MARROW GLUCOSE POC Haptoglobin Hepatic Function Panel High??Sensitivity??Troponin T Hold Blue Top Tube HOLD GEL TUBE IMMUNOFIXATION SERUM Iron + Iron Binding Capacity LDH LEUKEMIA/LYMPHOMA EVALUATION MOLECULAR TESTING, BONE MARROW Peripheral Blood Smear Review PROTIME PROFILE PTT Reticulocyte Ct SERUM ELECTROPHORESIS TSH with T4 Reflex (Adults Only) Type and Screen Uric Acid Vitamin B12 Level CT Angio Chest CT Guidance Needle KUB US Liver/Spleen XR Chest 2 Views Frontal and Lat You will be contacted within 72 hours with your results. Add On Lab Order?? Basic Metabolic Panel?? CBC?? CBC w/ Differential?? Cytogenetics Report ()?? [facility] Evaluation?? Pathology Tissue Request ()?? Primary Care Provider Papi GONSALVES, Mando Bearden? Discharge Vitals Temperature: 97.5 DegF Height: 177 cm Pulse Rate: 84 bpm Weight: 95.8 kg Respiratory Rate: 18 br/min Body Mass Index:??30.58 kg/m2??Critical Systolic Blood Pressure: 105 mm Hg Body surface area: 2.17 Diastolic Blood Pressure:??54 mm Hg??Low ?? Oxygen Saturation: 99 % ?? Studies Pending All studies ordered during this hospital stay have been completed unless listed below. Please discuss all pending results with your provider listed above in these instructions. ?? Add On Lab Order?? Basic Metabolic Panel?? CBC?? CBC w/ Differential?? Cytogenetics Report ()?? [facility] Evaluation?? Pathology Tissue Request ()?? What to do next Instructions From Your Doctor ?? - take clonazepam 1 mg Thrice daily. - do not??drive or operate any machinery if taking sedatives/ clonazepam. - follow up with out patient hematology team for bone marrow biopsy ( expect call with appointment) -Due to??decreased blood cell count specifically??ANC less than 500:??Take Levaquin 250 mg??once daily??for prophylactic dose to avoid bacterial infection.?? Follow-up labs and with hematology outpatient. -??[facility] hematology/oncology:??[address] [place] [address].Phone #??[phone]. - follow up with primary care physician - call??them to schedule follow up appointment. - continue to take 12 mg thrice daily Perphenazine. - take 35 units of Lantus daily instead of 48 units for diabetes. - follow up diabetic diet - follow up out patient endocrinology out patient for diabetes management. ?? - Pulmonary nodule, right (R91.1): - ?? Your CT chest showed 2 mm right upper lobe nodule. follow up with optional CT scan chest in 12 months. PCP will have to arrange this follow up scan ?? - Blood pressure has been stable off medications while in hospital. continue to monitor BP without medications and f/u with PCP ? Orders??Status: ??Full Resuscitation? 06/10/23 10:33:00 EST?? Prescriptions??, ??06/09/23 16:04:00 EST?? You Need to Schedule the Following Appointments [facility]:??06/24/2023 09:00 AM EST Why: ??Jose Lewis (??Consumer Sales Representative). Call [phone] for any questions Where: ?? Follow Up with??Markus Yousif Why: call to discuss psychiatry??follow up Follow Up with??Papi GONSALVES, Mando Bearden When:??Within 1 week: call to discuss follow up visit Where: [address] [place] [address] [address] [place] [address]- Discharge Medications EUGENIO WHITE :1965 Visit Date:05/29/2023 Medications: Please continue your medications until treatment is completed or stopped by your provider. Medications not listed below should be discontinued. Discuss any questions related to medications with your provider. What How Much When Instructions Next Dose New Levofloxacin (levoFLOXacin 250 mg oral tablet) 1 tab(s) Oral Daily Duration: 28 Days prophylaxis dose. ?? Pickup at [place] [address] 06/11 New Pantoprazole (Protonix 20 mg oral delayed release tablet) 20 Milligram Oral Daily 06/11 Changed Acetaminophen (acetaminophen 325 mg oral tablet) 650 Milligram Oral Every 4 hours as needed for Pain , Mild Temperature Greater than 100.5 ?? as needed Changed Clonazepam (clonazePAM 1 mg oral tablet) 1 tab(s) Oral 3 times a day Duration: 7 Days Pickup at [place] [address] this afternoon Changed Insulin Glargine (Lantus Solostar Pen 100 units/ mL subcutaneous solution) 35 unit(s) Subcutaneous Infusion Daily Pickup at [place] [address] 06/11 Changed Perphenazine (perphenazine 2 mg oral tablet) See instructions 12 mg By Mouth 3 times a day ?? see instruction Unchanged Atorvastatin (atorvastatin 10 mg oral tablet) 1 tab(s) Oral Daily 06/11 Unchanged Desmopressin (desmopressin 0.1 mg oral tablet) 2 tab(s) Oral Daily at Bedtime bedtime Unchanged Durable Medical Equipment (Alcohol Pads) See instructions use to clean finger tips for glucose monitoring 5x/ day ??DxE11.9 ?? see instructions Unchanged Durable Medical Equipment (Alcohol Wipes) See instructions use 3x/ day for skin prep ?? see instructions Unchanged Durable Medical Equipment (Alcohol Wipes) See instructions use 3x/ day for skin prep ?? see instructions Unchanged Durable Medical Equipment (Freestyle Lite Lancets) See instructions test blood sugar 5x day, DX E11.9, ?? see instructions Unchanged Durable Medical Equipment (Freestyle Lite Monitor) See instructions DX E11.9 ?? see instructions Unchanged Durable Medical Equipment (Freestyle Lite Test Strips) See instructions test blood sugar 4x day, DX E11.9 ?? see instructions Unchanged Durable Medical Equipment (Insulin Syringe, BD Ultra-Fine 1 cc 31 G x 8 mm (5/ 16in)) Seeinstructions USE 4 PER DAY ?? see instructions Unchanged Durable Medical Equipment (Insulin Syringe, BD Ultra-Fine 1 cc 31 G x 8 mm (5/ 16in)) Seeinstructions 4 x a day injection, 90 day supply ?? see instructions Unchanged Durable Medical Equipment (One Touch UltraSoft Lancets) See instructions TEST BS 2-3 TIMES PER DAY ?? see instructions Unchanged Durable Medical Equipment (Pen [place], 31 G x 8 mm BD Ultra Fine III) See instructions T2DM E11.9 for injecting insulin 4x daily ?? see instructions Unchanged Lactulose (lactulose 10 gm/ 15 ml oral syrup) 15 Milliliter Oral Daily as needed for as needed for constipation as needed Unchanged Levothyroxine (Levothyroxine Tablet) 50 Microgram Oral Daily 06/11 Unchanged Magnesium Oxide (magnesium oxide 400 mg oral tablet) 1 tab(s) Oral Daily 06/11 Unchanged Miscellaneous Rx (COMFRT TOUCH PAD ALC PREP) See instructions USE DIRECTED TO CLEAN AREA 5 TIMES A DAY ?? see instructions Unchanged Miscellaneous Rx (Freestyle alo 2 14-day sensors) See instructions Use to check BG up to 5 times/ day, change every 14 days, wear on the back of the upper arm ?? see instructions Unchanged Miscellaneous Rx (Freestyle alo 2 reader) See instructions Use to check BG up to 5 times/ day ?? see instructions Unchanged Miscellaneous Rx (PLASTIC URINAL) See instructions USE DIRECTED AT HOME ?? see instructions Unchanged Multivitamin (Tab-A-Devon oral tablet) 1 tab(s) Oral Daily 06/11 Unchanged semaglutide (Ozempic 2 mg/ 3 mL (0.25 mg or 0.5 mg dose) subcutaneous solution) INJECT 0.5mg UNDER THE SKIN EVERY WEEK ?? weekly Unchanged Tizanidine (tiZANidine 4 mg oral tablet) 1 tab(s) Oral Daily at Bedtime bedtime Unchanged Trazodone (traZODone 100 mg oral tablet) 2 tablets Oral Daily at Bedtime bedtime Pharmacy Information [facility]: [address] [place], [place] [id number] [phone] ?? What How Much When Comments Stop Taking Aspirin (aspirin 81 mg oral enteric coated tablet) 1 tab(s) Oral Daily Stop Taking Clozapine (Clozaril 100 mg oral tablet) 1 tab(s) Oral 3 times a day Stop Taking Famotidine (Pepcid Tablet) 40 Milligram Twice a day Stop Taking Fluticasone Nasal (Flonase) 1 spray(s) Daily Stop Taking HydrOXYzine (Vistaril pamoate 25 mg oral capsule) 1 capsule Oral 4 times a day Stop Taking Ibuprofen (ibuprofen 600 mg oral tablet) 1 tab(s) Oral 3 times a day as needed for as needed Stop Taking Lamotrigine (Lamictal 200 mg oral tablet) 1 tab(s) Oral Twice a day Stop Taking G. [employer]. Garcia (lithium 300 mg oral tablet) 1 tab(s) Oral Twice a day Stop Taking Omeprazole (omeprazole 20 mg oral enteric coated capsule) 1 capsule Oral Daily Stop Taking Simvastatin (simvastatin 20 mg oral tablet) 1 tab(s) Oral Daily at Bedtime Prescription Given During Visit Clonazepam (clonazePAM 1 mg oral tablet) - 1 tablet = 1 mg, By Mouth, 3 times a day, # 21 tablet, 0Refills, [facility], [address] [place] [phone]?? Insulin Glargine (Lantus Solostar Pen 100 units/mL subcutaneous solution) - 35 units, Subcutaneous Infusion, Daily, # 15 mL, 11 Refills, [facility], [place] [address] [phone]?? Levofloxacin (levoFLOXacin 250 mg oral tablet) - 1 tablet = 250 mg, By Mouth, Daily, # 28 tablet, 0Refills, prophylaxis dose., [facility], [address] [place] [address] [phone]?? Laboratory Results Below is a partial list of the most recent Laboratory test results done prior to this discharge. You may have had other tests and procedures not included in this list. Please discuss all test resultswith your provider. Est Creatinine Clearance - 117.59 mL/min (06/04/2023) [id number] (06/05/2023) ? ?Flow Cytometry Interpretation -

Patient Name: EUGENIO WHITE
Patient : & nbsp;1965 (Age: 57)
Collection Date: 06/05/2023
Accession Date: 06/05/2023
Sign Out Date: 06/09/2023

Interpretation:

Flow Cytometry of BONE MARROW

- CD34+ myeloblasts (CD34+, CD117 +, CD13+, CD33+) are approximately 4.3 percent of registered cells.
- Polytypic B cell and immunophenotypically unremarkable T cells are detected.

See separate pathologist report, [id number]

Antigens tested: CD45, kappa, lambda, CD20, CD19, CD5, CD3, CD10, CD7, CD13, CD123, CD56, CD33, CD4, CD36, CD15, CD34, CD117, CD14, HLA-DR, CD16, CD8, CD2, alpha/beta, gamma/delta

Note:
This test was developed and its performance characteristics determined by Flow cy tometry department at [facility]. It has not been cleared or approved by the US Food and Drug Administration. FDA does not require this test to go through premarket FDA review. This test is used for clinical purposes. It should not be regarded as investigational or for research. The laboratory is certified under the Clinical Laboratory Improvement Amendments of 1988 ("CLIA ) as qualified to perform high-complexity testing. Additional information about thistype of test is available upon request.

Testing performed at [facility], Flow Cytometry Department, [address] [place], [place] [id number]. CLIA#: [id number].

Material Received/Source of Specimen:
Specimen type/location: BONE MARROW
Date/time specimen collected: 06/05/2023 at 1740
Date/time specimen received: 06/05/2023 at 1940
Date/time specimen processed: 4at 0825
Total cell count: 8.5 million
Viability: 73%

Comment:

Primary Pathologist:TEN SAUCEDA M.D.
electronically signed out by: TEN SAUCEDA M.D. / DEREK

Phone #: [phone], On-Call Pathologist: [phone] Basic Metabolic Panel (06/08/2023) ???Sodium - 138 mmol/L???Potassium - 4.2 mmol/L???Chloride - 106 mmol/L???Bicarbonate Level - 24 mmol/L???Anion Gap - 8???Glucose Level - 169 mg/dL???BUN - 11 mg/dL???Creatinine-Blood - 0.7 mg/dL???Estimated GFR Creatinine - 109 ML/MIN/1.73 M2???Calcium - 9.1 mg/dL BONE MARROW (06/05/2023) ???Bone Marrow - SEE SEPARATE REPORT CBC w/ Differential (06/08/2023) ???WBC - 1.6 k/mm3???RBC - 3.11 m/mm3???Hgb - 9.1 Gm/dL???Hct - 27.3 %???MCV - 87.8 femtoliters???MCH - 29.3 pg???MCHC - 33.3 g/dL???Platelet Count - 29 k/mm3???RDW-SD - 59.7 femtoliters???MPV - NOT MEASURED???Nucleated RBC (Automated) - 0.0 #/100 WBC'S???Abs. NRBC - 0.0 k/mm3???Abs. Neut - 0.2 k/mm 3???Abs. Lymph - 1.3 k/mm3???Abs. Marshall - 0.1 k/mm3???Abs. Eo - 0.0 k/mm3???Abs. Baso - 0.0 k/mm3???Neut % - 12.2 %???Lymph % - 82.7 %???Marshall % - 4.5 %???Eos % - 0.6 %???Baso % - 0.0 %???RBC Morphology - MODERATE???Imm Gran - 0.0 %???Abs. Imm Gran - 0.0 k/mm3 COMPREHENSIVE METABOLIC PANL (06/01/2023) ???Sodium - 136 mmol/L???Potassium - 4.2 mmol/L???Chloride - 101 mmol/L???Bicarbonate Level - 23 mmol/L???Anion Gap - 12???Glucose Level - 153 mg/dL???BUN - 10 mg/dL???Creatinine-Blood - 0.8 mg/dL???Estimated GFR Creatinine - 105 ML/MIN/1.73 M2???Calcium - 9.6 mg/dL???Protein, Total - 6.7 Gm/dL???Al bumin - 4.4 Gm/dL???AG Ratio - 1.9???Alkaline Phosphatase - 95 units/L???AST (SGOT) - 21 units/L???ALT (SGPT) - 20 units/L???Bilirubin, Total - 1.3 mg/dL COVID-19 (2019 Novel Coronavirus) PCR (06/08/2023) ???COVID-19 PCR Specimen Source - NASAL???COVID-19 PCR Result - NEGATIVE COVID-19 ANTIGEN POC (05/29/2023) ???COVID-19 Antigen POC Result - NEGATIVE COVID-19, RSV, and Flu A/B, Rapid PCR (05/29/2023) ???Influenza A PCR - NEGATIVE???Influenza B PCR - NEGATIVE???RSV PCR - NEGATIVE???COVID-19 PCR Specimen Source - NASAL???COVID-19 PCR Result - NEGATIVE D-DIMER (05/29/2023) ???D-Dimer - 0.39 mg/L FEU Direct Jayesh Test (05/30/2023) ???Direct Antiglobulin Test, Anti-IgG - Anti-IgG : Negative???Direct Antiglobulin Test, Anti-C3b,-C3d - Anti-C3d : Negative Ferritin (05/29/2023) ???Ferritin Level - 269 ng/mL Fibrinogen (05/29/2023) ???Fibrinogen - 289 mg/dL Folate Level (05/29/2023) ???Folic Acid Level - HEMOLYZED Folic Acid Level (05/30/2023) ???Folic Acid Level - 21.5 ng/mL FREE KAPPA & LAMBDA LIGHT CHAINS, SERUM (06/01/2023) ???Free [place] Light Chains - 21.48 mg/L???Free Lambda Light Chains - 16.97 mg/L???Free [place]\LambdaRatio - 1.27 GENETICS BONE MARROW (06/05/2023) ???Green Tube Chromosome Study - SPECIMEN COLLECTED FOR ANALYSIS GLUCOSE POC (06/09/2023) ???Glucose, POC - 256 mg/dL Haptoglobin (05/30/2023) ? ?Haptoglobin - <10 mg/dL Hepatic Function Panel (05/29/2023) ???Protein, Total - 6.5 Gm/dL???Albumin - 4.4 Gm/dL???Alkaline Phosphatase - 84 units/L???AST (SGOT) - 20 units/L???ALT (SGPT) - 16 units/L???Bilirubin, Total - 0.9 mg/dL???Bilirubin, Direct - 0.3 mg/dL???Bilirubin, Indirect - 0.6 mg/dL High??Sensitivity??Troponin T (05/29/2023) ???High Sensitivity Troponin (HSTnT) - 13 ng/L Hold Blue Top Tube (05/29/2023) ???Hold Blue Top - SPECIMEN DISCARDED AFTER 4 HOURS. HOLD GEL TUBE (06/02/2023) ???Hold Gel Top - SPECIMEN DISCARDED AFTER 1 WEEK IMMUNOFIXATION SERUM (06/01/2023) ???IgG - 703 mg/dL???IgA - 399 mg/dL???IgM - 46 mg/dL???Immunofixation-Serum - Normal immunofixation pattern (No monoclonal protein detected) Iron + Iron Binding Capacity (05/30/2023) ???Iron Level - 105 mcg/dL???Iron Binding Capacity, Unsaturated - 153 mcg/dL???Iron Binding Capacity, Estimated Total - 258 mcg/dL???% Iron Saturation - 41 % LDH (05/30/2023) ???LDH - 144 units/L LEUKEMIA/LYMPHOMA EVALUATION (05/29/2023) ???Leukemia/Lymphoma Evaluation - SPECIMEN COLLECTED FOR ANALYSIS MOLECULAR TESTING, BONE MARROW (06/05/2023) ???Lavender Tube Neoplastic - SPECIMEN COLLECTED FOR ANALYSIS Peripheral Blood Smear Review (05/30/2023) ???Peripheral Blood Smear Review Interp. - Reviewed by pathologist. PROTIME PROFILE (06/01/2023) ???INR - 1.1???Protime (PT) - 11.7 seconds PTT (05/29/2023) ???APTT - 23.[address] (05/29/2023) ???Retic Count - 1.8 %???Retic Count Corrected - 1.2 %???Retic Production Index - 0.8 % SERUM ELECTROPHORESIS (06/01/2023) ???Total Protein, SPE - 6.7 Gm/dL???Albumin, SPE - 4.0 Gm/dL???Alpha 1, SPE - 0.3 Gm/dL???Alpha 2, SPE - 0.6 Gm/dL???Beta, SPE - 1.1 Gm/dL???Gamma, SPE - 0.7 Gm/dL???Beta, Restricted Band - Not Applicable???Beta, Second Restricted Band - Not Applicable???Gamma, Restricted Band - Not Applicable???Gamma, Second Restricted Band - Not Applicable???Interpretation, SPE - No apparent monoclonal protein identified. Normal high resolution serum TSH with T4 Reflex (Adults Only) (05/30/2023) ???TSH - 1.57 uIU/mL Type and Screen (06/02/2023) ???Blood Type - A Positive???Antibody Screen - Negative Uric Acid (05/29/2023) ???Uric Acid - 5.4 mg/dL Vitamin B12 Level (05/29/2023) ???Vitamin B12 Level - 842 pg/mL Allergies (NKA means No Known Allergies) Clozaril metformin??(DIARRHEA) Problems Active Problems??(9) Bipolar?? Diabetes mellitus type 2?? Hypertension?? Hypothyroidism?? Obese class I?? Obesity?? Pancytopenia?? Pulmonary nodule, right?? Schizophrenia?? Education Materials Below is the list of Educational Leaflet Providered with your Discharge Instructions. Thrombocytopenia?? Neutropenia?? Valuables and Belongings I fully understand and agree that [facility] accepts no responsibility for all my personal property including clothing, toilet articles, radios, jewelry, dentures, hearing aids, rings, money, or any other property that is in my possession or is brought to me after admission. I understand certain valuables may be placed in a hospital safe for a short period of time. I understand that the hospital is not liable for loss or damage due to accident, fire, or other natural occurrence while said property is in the safe. I accept full responsibility for any personal property that I keep with me, and will not hold the hospital responsible in case of loss or disappearance. I acknowledge that i have been encouraged to send valuables and belongings home. ?? Safe envelope number: [id number] Deposit/Withdrawal: Deposit Money/Amount: 106 Review of Valuable and Belonging List: With patient Disposition of Belongings: Sent home with patient/family Possessions released to: 106.00CASH AND 3.50 QUARTERS/ [employer] WATCH AND KEYS LOCKED IN SAFE Date for Pt to Sign Valuables/Belongings: 06/09/23 16:21:00 ?? Other Discharge Information ? Case Management Discharge Plan?? Discharge Plan?? Discharge Agency Information?? Discharge Level of Care at Discharge: Homehealth/VNA Name of Agency #1: [facility] Discharge Transportation Arranged: [facility] [address] [facility] [id number] [phone] Service Categories #1: Care Home Mode of Transportation Arranged: [employer] Service Comments #1: The nurse will call you to arrange visit time, please call agency with questions Discharge Arranged Transport Date/Time: 06/10/23 12:00:00 ?? Discharge VNA/Hospice/Home Care: [facility] ? Pulmonary Rehab Status?? Pulmonary Rehab Discharge Status?? Respiratory Rate: 18 br/min ? Common Emergency Awareness Tips IS IT A STROKE? Act FAST and Check for these signs: FACE Does the face look uneven? ARM Does one arm drift down? SPEECH Does their speech sound strange? TIME Call at any sign of stroke ?? Heart Attack Signs Chest discomfort: Most heart attacks involve discomfort in the center of the chest and lasts more than a few minutes, or goes away and comes back. It can feel like uncomfortable pressure, squeezing, fullness or pain. Discomfort in upper body: Symptoms can include pain or discomfort in one or both arms, back, neck, jaw or stomach. Shortness of breath: With or without discomfort. Other signs: Breaking out in a cold sweat, nausea, or lightheaded. Remember, MINUTES DO MATTER. If you experience any of these heart attack warning signs, call to get immediate medical attention! ?? Smoking can increase your chances of developing chronic health problems and can cause harmful effects to other family members in your house. If you smoke, you are strongly encouraged to quit. Please call [facility] at [phone] or [phone] ([phone]) or log in to [email or web address] for referrals to smoking cessation programs. ?? 545 Suicide & Crisis Lifeline is available 24/11 if you or someone you know needs to find a reason to keep living. By calling 764 you'll be connected to a skilled, trained counselor at a crisis center in your area. INPATIENT DISCHARGE INSTRUCTIONS SIGNATURE PAGE EUGENIO WHITE Location:[facility] Registration Date and Time:05/29/2023 07:40 EST Primary Care Physician: Papi GONSALVES, Mando Bearden Attending Physician: Felice Bejarano MD, I EUGENIO WHITE, have received the above patient education materials/instructions and have verbalized understanding. If ambulance or transport services are being used I further acknowledge being given a choice of service. ?? If you need to contact me, please call me at this number: . Patient/Operations Logistics Analyst Name: Patient/Operations Logistics Analyst Signature: Relationship to Patient: Witness Name/Signature: Date: * Felice Bejarano MD: PERFORM Event Display: Patient Education Leaflets Authored Date: [id number] Thrombocytopenia ?? 38295 Thrombocytopenia Thrombocytopenia occurs when there are fewer platelets in the blood than normal. Platelets (thrombocytes) are blood cells that are needed for clotting. They help stop or control bleeding when you have a cut or wound. Thrombocytopenia can range from mild to severe. This depends on the number of platelets in your blood. If you have severe thrombocytopenia, you're at higher risk for bruising and bleeding. What causes thrombocytopenia? Platelets and other blood cells are made in the bone marrow. This is the soft, spongy part inside bones. Thrombocytopenia can result when: ??? The bone marrow doesn't make enough platelets ??? Platelets are destroyed by the body at a ratefaster than they can be made in the bone marrow ??? Platelets become trapped in an enlarged spleen These problems can happen because of many reasons, including: ??? Certain conditions that affect how platelets are made in the bone marrow, such as aplastic anemia, leukemia, and lymphoma ??? Certainmedicines, such as some types of antibiotics, antiseizure medicines, and chemotherapy medicines ???Certain viral infections, such as varicella (chicken pox), HIV, and Chema-August virus ??? Certain immune problems, such as lupus and immune thrombocytopenic purpura (ITP) ??? Certain conditions thatcan cause an enlarged spleen, such as cirrhosis and cancer ??? Alcohol abuse ? What are the symptoms of thrombocytopenia? Possible symptoms include: ??? Severe bruising or bleeding ??? Small red or purple spots (petechiae) on the skin ??? Bleeding gums ??? Nosebleeds ??? Bleeding from a wound that stops and starts again??? Bloody urine or stool ??? Heavy menstrual flow ?? How is thrombocytopenia diagnosed? Your healthcare provider will ask about your symptoms and health history. You will also be examined. Tests will be done to confirm the problem as well. These may include: ??? A complete blood cell count (CBC). This test measures the amounts of the different types of cells in the blood. This includes the number of platelets in the blood platelet count). ??? A blood smear. This test checks for the different types of blood cells in the blood and how they appear. A sample of your blood is spread gildardo glass slide and viewed under a microscope. A stain is used so the blood cells can be seen. ??? A bone marrow aspiration and biopsy. This test checks for problems with how the bone marrow makes blood cells. A needle is used to remove a sample of the bone marrow in your hipbone. The sample is then sent to a lab to be tested for problems. ?? How is thrombocytopenia treated? Often, no treatment is needed for thrombocytopenia. Your healthcare provider will monitor your symptoms to see if they improve. Blood tests will also be done to check whether your platelet count returns to normal on its own. If treatment is needed, this may involve: ??? Treatment of the underlying cause. For instance, if a medicine is the cause, it may be stopped or changed. ??? Platelet transfusions. These help raise the number of healthy platelets in the body. ??? Blood transfusions. These help treat blood loss that may occur because of low platelets. ??? Medicines. These may be given to help prevent platelets from being destroyed. These may also be given to help the bone marrow make more platelets. ??? Surgery to remove the spleen. The spleen helps filter the blood. It also stores someblood cells, including platelets. When thrombocytopenia is caused by ITP, platelets become trapped in the spleen. If ITP is not controlled with medicine, removing the spleen can be an effective treatment. ?? What can I expect for recovery and follow-up? Thrombocytopenia may be a short-term (acute) problem that has no lasting effects. Or it may be an ongoing (chronic) problem. If your condition is chronic, you may need specific treatments to manage it. Your healthcare provider will explain what you need to do based on the cause and long-term outlook of your thrombocytopenia. You may need to take certain steps daily to reduce your risk of bleeding. Your healthcare provider will give you specific home care instructions. Follow your provider's instructions closely. Here aresome tips. Activity ??? You may feel tired for a few weeks while your platelet levels are still low. However, try to stay active. Start walking around the house or outside as soon as you feel like you can. ??? You may be told to limit certain activities that increase your risk of injury. Talk to your healthcare provider before playing contact sports. Avoid situations where you could get bruise or bleed. Diet and medicine ??? If you were in the hospital, you likely will be able to eat your regular diet once you go home.Eat a well-balanced diet with plenty of fruits and vegetables. This is to make sure your body gets all the nutrients it needs to make healthy platelets. ??? You may be advised to not drink alcohol and to not take certain medicines, such as aspirin and ibuprofen. These can worsen your symptoms. ??? Take your prescribed medicines as instructed by your healthcare provider. Don't skip doses or changedoses without talking to your provider. Ongoing and follow-up care ??? Keep all your healthcare provider's appointments. Ongoing follow-up with your provider is important to monitor your platelet counts. ??? Watch and keep track of bleeding and follow instructions on when to call your healthcare provider. This can include bleeding while brushing your teeth, increasing bruising, or heavy menstrual cycles. ?? Call 911 Call 911 if you have any of these: ??? Heavy bleeding that won't stop. This includes a very heavy menstrual cycle for those who have periods. ??? Trouble breathing or chest pain ??? Fainting or feeling dizzy or lightheaded ??? Signs of bleeding in the brain. These include severe headache, dizziness, trouble with balance and coordination, abnormal walk, memory loss, and confusion ?? When to call your healthcare provider Call your healthcare provider right away if you have any of these: ??? Bruising that spreads or worsens ??? Increase of small red or purple spots (petechiae) on the skin ??? Bloody urine ??? Dark brown or black, tarry, or bloody stools ??? Bloody vomit ??? New or worsening symptoms or you don't feel better as expected ?? Last Reviewed Date: 2021 ?? [id number] [employer]. All rights reserved. This information is not intended as a substitute for professional medical care. Always follow your healthcare professional's instructions. ?? * Carlee GONSALVES, Felice R: PERFORM Event Display: Patient Education Leaflets Authored Date: [id number] Neutropenia ?? 60515 Neutropenia White blood cells (WBCs) help protect the body from infection. Neutrophils are a type of white blood cell. Their main job is to help the body fight bacterial and fungal infections. Neutropenia occurswhen there are fewer neutrophils in the blood than normal. It can range from mild to severe. This depends on the number of neutrophils in the blood. Severe neutropenia puts a person at higher risk for having more infections. Bacterial and fungal infections are most common. Your healthcare provider can tell you more about your condition and whether it needs to be treated. What causes neutropenia? There are??two main types of neutropenia: congenital and acquired. Each type has many causes: ??? Congenital neutropenia. These are the types that are present at . They are caused by certain rare genetic conditions, such as Kostmann syndrome. Most often the neutropenia is mild and normal for certain ethnic groups, including people of , , or Mandaeism descent. ??? Acquired neutropenia. This type is not present at . Causes include: o Certain medicines, such as antibiotics and chemotherapy medicines o Certain autoimmune conditions o Certain viral, bacterial, or parasitic infections o Too little folate or vitamin B-12 in the diet o Underlying bone marrow problem, such as leukemia or myelodysplastic syndrome (MDS) o Other causes ?? How is neutropenia diagnosed? Your healthcare provider may check for neutropenia if you have frequent infections. Your provider may also check for neutropenia if you???re having certain treatments, such as chemotherapy, which is known to cause a lower neutrophil count. Neutropenia is often found when a routine complete blood count is drawn. Tests will be done to confirm the problem. These may include: ??? A complete blood count (CBC). This test measures the amounts of the different types of cells in your blood. This includes the WBCs. The WBC count can be broken down further to find the number of neutrophils and immature neutrophils (bands) in your blood. This is called an absolute neutrophil count (ANC). ??? A blood smear. This test checks for the different types of blood cells in your blood and how they appear. A sample of your blood is spread on a glass slide and viewed under a microscope. A stain is used so the blood cells can be seen. ??? A bone marrow aspiration and biopsy. This test checks for problems withhow your bone marrow makes blood cells. A needle is used to remove a sample of the bone marrow in your hip bone. The sample is then sent to a lab to be tested for problems. ?? How is neutropenia treated? If there is a clear cause of neutropenia, it is addressed. For instance, if a medicine is the cause, it may be stopped or changed. ??? Often no treatment is needed formild cases, such as those linked to ethnicity. ??? For moderate to severe cases, treatment is likely needed. This may include: o G-CSF (granulocyte-colony stimulating factor). This is a special type of protein. It helps promote the growth and activity of neutrophils. G-CSF is given by injection. o Bone marrow transplant.??This treatment replaces diseased bone marrow cells with healthy cells from a matched donor. This treatment is done only in specific severe cases. ?? What is the long-term outcome of neutropenia? The outcome of neutropenia varies for each person. For some people, neutropenia may resolve after afew weeks or months. For other people, it may be long- lasting. In these cases, ongoing care and treatment may be needed. Your healthcare provider will talk to you more about what to expect from your c ondition. ?? When to call your healthcare provider Call your healthcare provider right away if you have any of the following: ??? Cold sweat or chills??? Chest pain or trouble breathing ??? Sore throat ??? Cough ??? Extreme tiredness or fatigue ??? Nausea and vomiting ??? Redness, warmth, or drainage from any open cuts or wounds ??? Pain or burning with urination; frequent urination ??? Pain, burning, or bleeding in the rectum ??? Severe constipation or diarrhea ??? Bloody stool or urine? Call 911 Fever of 100.4??F (38??C) or higher. Call 911 or go to the emergency room. This is especially important if you have severe neutropenia. This puts you at higher risk for a life-threatening infection. ?? How can I prevent infections? With neutropenia, take extra care to protect yourself from infection. Talk with your healthcare provider about what steps you need to take. What you do depends on how severe your neutropenia is. The following precautions help prevent infections: ??? Wash your hands often, especially before eating and after using the bathroom. Use clean, running water and soap. Scrub for 20 seconds, or for as longas it takes to sing the Happy Birthday song from beginning to end, twice. Or use a hand gel that contains at least 60% alcohol. ??? Stay away from crowds and close contact with others who may be ill.??? Cook meat and eggs all the way through to kill any germs. ??? Carefully wash raw fruits and vegetables. Depending on how severe your neutropenia is, you may need to drop fresh fruits and vegetables from your diet. ??? Clean items you use often with disinfectant wipes. This includes phones and computer keyboards. ??? Don't touch your eyes, nose, and mouth, especially if your hands are not clean. ??? Practice good oral hygiene. Use a soft toothbrush. Also, brush and floss your teeth gently. ??? Always wipe from front to back after a bowel movement. ??? Stay up to date on vaccines advised byyour healthcare provider. ??? Bathe every day and use an unscented lotion to prevent cracked skin. ??? Keep cuts and scrapes clean and covered until they heal. ??? Don't share items such as drinks, eating utensils, towels, toothbrushes, razors, clothing, and sports equipment. ??? Store and handle foods safely to prevent food-borne illness. ??? Protect yourself against pet waste (urine and stool) by using vinyl gloves when cleaning. ??? Always use gloves when gardening. You may have to avoid having live plants in your home. ??? Ask your healthcare provider if you need to take antibiotics before and after having any dental or medical procedures. ??? Ask your healthcare provider if you need towear a special mask near construction sites or farm areas. ?? Last Reviewed Date: 2022 ?? [employer]. All rights reserved. This information is not intended as a substitute for professional medical care. Always follow your healthcare professional's instructions. ?? * Black GONSALVES, Noor: MODIFY, PERFORM Event Display: Discharge/Transfer Note Hospital Authored Date: [id number] Patient: ??EUGENIO WHITE ? Age:??57 Years?Sex:??Male?:??1965?? Patient Information Discharge Location: [id number] Primary Care Physician: Mando Turpin MD Admit Date/Time: 05/29/23 07:40 Discharge Disposition Discharge Disposition: Home with Home Health Discharge Diagnosis Bipolar disorder (F31.9) Chest pain (R07.9) Diabetes mellitus (E11.9) Hypertension (I10) Hypothyroidism (E03.9) Pancytopenia (D61.818) Pulmonary nodule, right (R91.1) Schizophrenia (F20.9) Splenomegaly (R16.1) ?? _ Discharge Medications Acetaminophen (Tylenol Caplet)?650?Milligram?By Mouth?Every 4 hours Aspirin (aspirin 81 mg oral enteric coated tablet)?1?tab(s)?81?Milligram?By Mouth?Daily Atorvastatin (atorvastatin 10 mg oral tablet)?1?tab(s)?10?Milligram?By Mouth?Daily Clonazepam (clonazePAM 1 mg oral tablet)?1?tab(s)?1?Milligram?By Mouth?3 times a day?for 7?Days Desmopressin (desmopressin 0.1 mg oral tablet)?2?tab(s)?0.2?Milligram?By Mouth?Daily at bedtime Durable Medical Equipment (Alcohol Wipes)?See Instructions?use 3x/day for skin prep Durable Medical Equipment (Insulin Syringe, BD Ultra-Fine 1 cc 31 G x 8 mm (5/16in))?See Instructions?USE 4 PER DAY Durable Medical Equipment (One Touch UltraSoft Lancets)?See Instructions?TEST BS 2-3 TIMES PER DAY Durable Medical Equipment (Alcohol Wipes)?See Instructions?use 3x/day for skin prep Durable Medical Equipment (Insulin Syringe, BD Ultra-Fine 1 cc 31 G x 8 mm (5/16in))?See Instructions?4 x a day injection, 90 day supply Durable Medical Equipment (Pen [place], 31 G x 8 mm BD Ultra Fine III)?See Instructions?T2DM E11.9 for injecting insulin 4x daily Durable Medical Equipment (Freestyle Lite Monitor)?See Instructions?DX E11.9 Durable Medical Equipment (Alcohol Pads)?See Instructions?use to clean finger tips for glucose monitoring 5x/day ??DxE11.9 Durable Medical Equipment (Freestyle Lite Lancets)?See Instructions?test blood sugar 5x day, DX E11.9, Durable Medical Equipment (Freestyle Lite Test Strips)?See Instructions?test blood sugar 4x day, DX E11.9 Famotidine (Pepcid Tablet)?40?Milligram?2 times a day Insulin Glargine (Lantus Solostar Pen 100 units/mL subcutaneous solution)?35?unit(s)?Subcutaneous Infusion?Daily Lactulose (lactulose 10 gm/15 ml oral syrup)?15?Milliliter?10?gram?By Mouth?Daily?as needed?as needed for constipation Levofloxacin (levoFLOXacin 250 mg oral tablet)?1?tab(s)?250?Milligram?By Mouth?Daily?for 28?Days?prophylaxis dose. Levothyroxine (Levothyroxine Tablet)?50?Microgram?By Mouth?Daily Magnesium Oxide (magnesium oxide 400 mg oral tablet)?1?tab(s)?400?Milligram?By Mouth?Daily Miscellaneous Rx (PLASTIC ??URINAL)?See Instructions?USE DIRECTED AT HOME Miscellaneous Rx (Freestyle alo 2 reader)?See Instructions?Use to check BG up to 5 times/day Miscellaneous Rx (Freestyle alo 2 14-day sensors)?See Instructions?Use to check BG up to 5 times/day, change every 14 days, wear on the back of the upper arm Miscellaneous Rx (COMFRT TOUCH PAD ALC PREP)?See Instructions?USE DIRECTED TO CLEAN AREA 5TIMES A DAY Multivitamin (Tab-A-Devon oral tablet)?1?tab(s)?By Mouth?Daily Omeprazole (omeprazole 20 mg oral enteric coated capsule)?1?capsule?20?Milligram?By Mouth?Daily Pantoprazole (Protonix 20 mg oral delayed release tablet)?20?Milligram?By Mouth?Daily?for 30?Days Perphenazine (perphenazine 4 mg oral tablet)?4?Milligram?1?tablet?By Mouth?3 times a day semaglutide (Ozempic 2 mg/3 mL (0.25 mg or 0.5 mg dose) subcutaneous solution)?INJECT 0.5mg UNDER THE SKIN EVERY WEEK Simvastatin (simvastatin 20 mg oral tablet)?1?tab(s)?20?Milligram?By Mouth?Daily at bedtime Tizanidine (tiZANidine 4 mg oral tablet)?4?Milligram?1?tablet?By Mouth?Daily at bedtime Trazodone (traZODone 100 mg oral tablet)?2 tablets?By Mouth?Daily at bedtime ? Quality Measures Tobacco Use Treatment:? Medications Started Levaquin for prophylaxis to 50 mg??tablet once daily. Perphenazine??12 mg 3 times daily Medications Discontinued G. L. Garcia and Lamictal Doses Changed Increase clonazepam??from 0.5 to??1 mg 3 times daily. Allergies Allergies ?(Active and Proposed Allergies Only) Clozaril? (Severity: Unknown severity, Onset: Unknown) metformin? (Severity: Unknown severity, Onset: Unknown) ?Reactions: DIARRHEA ?Comments: Marilee, Team Otr Truck Driver, states the patient has been taking Metformin with noside effects. ??We will ?cancel this as an allergy in his profile to lessen confusion in the future. ? Hospital Course 57 year old male with past medical history of schizophrenia, bipolar disorder, diabetes mellitus- on insulin , hypothyroidism, hypertension, recent covid infection ( 04/2023) presents with sub acute atypical chest pain x 1 month. ACS ruled out and admitted for pancytopenia and behavior changes. pancytopenia work up showed Haptoglobin is low, LDH wnl and Jayesh test neg. Fibrinogen is normal. renal function stable. pt reports allergy to Clozaril and has not used for > 6 yrs now but has been doing well on perphenazine 12 mg TID chronically--> Held initially but resumed as per psychiatry due to escalated behavior issues. Hematology consulted- okay to continue perphenazine; had Bone marrow biopsy on 06/05/23 - pending results of biopsy. Hospital course was complicated due to behavior issues- requiring constant training development manager but patient clinically improved with medication adjustment. Psych team cleared him for discharged with no active SI/ agitation episodes and he azar sbeen doing well without sitter. Clinically continue to improve ; labs continue to show pancytopenia. Hematology will follow up out patient and patient is clinically stable to be discharged home with following instructions: ?? - take clonazepam 1 mg Thrice daily. - donot drive or operate any machinery if taking sedatives/ clonazepam. - follow up [facility] out patient hematology team for bone marrow biopsy - follow up with primary care physician - call them to schedule follow up appointment. - continue to take 12 mg thrice daily Perphenazine. - take 35 units of lantus daily instead of 48 units for diabetes. - follow up diabetic diet - follow up out patient endocrinology out patient for diabetes management. ?? - Pulmonary nodule, right (R91.1): - ?CT chest showed 2 mm right upper lobe nodule. follow up with optional CT scan chest in 12 months ?? - Bipolar disorder (F31.9)/Schizophrenia (F20.9) - continue rest of home medications as above. ? Objective Vital Signs?? Temperature: 97.5 DegF (06/09/23 11:55:00) Temperature Route: Oral (06/09/23 11:55:00) Pulse Rate:??93 bpm??High (06/09/23 11:55:00) Respiratory Rate: 18 br/min (06/09/23 11:55:00) Systolic Blood Pressure: 128 mm Hg (06/09/23 11:55:00) Diastolic Blood Pressure: 71 mm Hg (06/09/23 11:55:00) Blood pressure sites: Arm, right (06/09/23 11:55:00) Mean Arterial Pressure: 90 mm Hg (06/09/23 11:55:00) Pulse Pressure: 57 mm Hg (06/09/23 11:55:00) Oxygen Saturation: 100 % (06/09/23 11:55:00) Mode of Delivery (Oxygen): Room air (06/09/23 11:55:00) Early Warning Score: 8 (06/09/23 12:30:37) ? . Physical Exam ?? General:??Appears calm and cooperative during my eval today. AOAx3.?Heart:??S1 S2 heard, regular rate and rhythm ?Lungs:??Bilateral air entry fair.?Abdomen:??Soft, NT, ND, bowel sounds valentina Pending Results Add On Lab Order ordered on 05/29/2023 Add On Lab Order ordered on 06/01/2023 Add On Lab Order ordered on 06/01/2023 Add On Lab Order ordered on 06/01/2023 Basic Metabolic Panel ordered on 06/06/2023 Basic Metabolic Panel ordered on 06/07/2023 CBC ordered on 06/06/2023 CBC w/ Differential ordered on 06/07/2023 Cytogenetics Report ordered on 06/05/2023 Cytogenetics Report ordered on 06/05/2023 P[facility] Evaluation ordered on 06/04/2023 Pathology Tissue Request ordered on 06/05/2023 Follow-Up Appointments Added Follow Up ?Time Frame ?Comments Papi GONSALVES, Mnado Bearden?1 to 2 weeks Patient Instructions ?? - take clonazepam 1 mg Thrice daily. - do not??drive or operate any machinery if taking sedatives/ clonazepam. - follow up with out patient hematology team for bone marrow biopsy -Due to??decreased blood cell count specifically??ANC less than 500:??Take Levaquin??to 50 mg??oncedaily??for prophylactic dose to avoid bacterial infection.?? Follow-up with hematology outpatient. -[facility] hematology/oncology:??[address], [place].Phone #??[phone]. - follow up with primary care physician - call??them to schedule follow up appointment. - continue to take 12 mg thrice daily Perphenazine. - take 35 units of Lantus daily instead of 48 units for diabetes. - follow up diabetic diet - follow up out patient endocrinology out patient for diabetes management. ?? - Pulmonary nodule, right (R91.1): - ?CT chest showed 2 mm right upper lobe nodule. follow up with optional CT scan chest in 12 months ?? - Bipolar disorder (F31.9)/Schizophrenia (F20.9):?continue rest of home medications as above. ?? Post Discharge Care Code Status: ??Full Resuscitation ?? Discharge ?06/09/23 16:04:00 EST Discharge Prescriptions ?ePrescribed, 06/09/23 16:04:00 EST Home Health Face to Face *Denotes mandatory mcallister ?? *I certify that this patient is under my care and that I or an allowed non- physician working with me had a face to face encounter with the patient on this date:??06/09/2023 16:07 ?? *The encounter with the patient was in whole, or in part, for the following medical condition, which is the primary diagnosis(es) for home health care:??Bipolar disorder (F31.9) Chest pain (R07.9) Diabetes mellitus (E11.9) Hypertension (I10) Hypothyroidism (E03.9) Pancytopenia (D61.818) Pulmonary nodule, right (R91.1) Schizophrenia (F20.9) Splenomegaly (R16.1) ? *Select the indications for the discipline/s that are being arranged for this patient. Nursing (select all that apply): [_] None [_x] Medication management (reconciliation, teaching)?? [_x] Chronic disease management?? [_] Wound care and treatment?? [_] Home safety evaluation [_] Administer SQ/IM/IV medications?? [_] Cath care?? [_] Drain care?? [_] Trach or GT care?? Other _ Occupation Therapy (select all that apply): [_] None [_] ADL Management [_] Fall prevention training [_] Energy conservation [_] Cognitive training Other _ Physical Therapy (select all that apply): [_] None [x_] Functional mobility training [x_] Home exercise program to strengthen [x_] Increase ROM?? [_] Falls prevention training [_] Home maintenance program for chronic disease Other _ Speech Therapy (select all that apply): [_] None [_] Swallow evaluation and training [_] Speech and language training [_] Cognitive training to process, organize, and/or recall information Other _ ? *Homebound due to (select all that apply): [_] Inability to leave home without assistance/supervision [_] Inability to ambulate without assistance [_x] Pain [_x] Decreased strength and endurance [_x] Unsteady gait [_] Severe SOB and fatigue [_] Impaired transfers [_] Inability to negotiate stairs [_] Limited weight bearing [_] Mental status change? *Physician Signature: _ dawson cleaning ?? *By signing this, I certify that I have personally evaluated the patient and agree with the findings and recommendations as documented above. ? Results Discharge Labs BACTERIOLOGY Green Tube Chromosome Study SPECIMEN COLLECTED FOR ANALYSIS ()?? 06/05/2023 17:40 Lavender Tube Neoplastic SPECIMEN COLLECTED FOR ANALYSIS ()?? 06/05/2023 17:40 ?? BLOOD BANK Blood Type A Positive ()?? 06/02/2023 16:16 Antibody Screen Negative ()?? 06/02/2023 16:16 Direct Antiglobulin Test, Anti-IgG Anti-IgG : Negative ()?? 05/30/2023 08:27 Direct Antiglobulin Test, Anti-C3b,-C3d Anti-C3d : Negative ()?? 05/30/2023 08:27 ?? BLOOD COUNT & DIFF WBC 1.6 k/mm3 (Critical)?? 06/08/2023 04:43 RBC 3.11 m/mm3 (Low)?? 06/08/2023 04:43 Hgb 9.1 Gm/dL (Low)?? 06/08/2023 04:43 Hct 27.3 % (Low)?? 06/08/2023 04:43 MCV 87.8 femtoliters ()?? 06/08/2023 04:43 MCH 29.3 pg ()?? 06/08/2023 04:43 MCHC 33.3 g/dL ()?? 06/08/2023 04:43 Platelet Count 29 k/mm3 (Critical)?? 06/08/2023 04:43 RDW-SD 59.7 femtoliters (High)?? 06/08/2023 04:43 MPV NOT MEASURED femtoliters ()?? 06/08/2023 04:43 Nucleated RBC (Automated) 0.0 #/100 WBC'S ()?? 06/08/2023 04:43 Abs. NRBC 0.0 k/mm3 ()?? 06/08/2023 04:43 Abs. Neut 0.2 k/mm3 (Low)?? 06/08/2023 04:43 Abs. Lymph 1.3 k/mm3 ()?? 06/08/2023 04:43 Abs. Marshall 0.1 k/mm3 (Low)?? 06/08/2023 04:43 Abs. Eo 0.0 k/mm3 ()?? 06/08/2023 04:43 Abs. Baso 0.0 k/mm3 ()?? 06/08/2023 04:43 Neut % 12.2 % (Low)?? 06/08/2023 04:43 Lymph % 82.7 % (High)?? 06/08/2023 04:43 Marshall % 4.5 % ()?? 06/08/2023 04:43 Eos % 0.6 % ()?? 06/08/2023 04:43 Baso % 0.0 % ()?? 06/08/2023 04:43 Myelocytes % 0.9 % ()?? 06/02/2023 10:05 Band % 0.9 % ()?? 06/03/2023 03:45 Atypical Lymph % 0.9 % ()?? 06/03/2023 03:45 Peripheral Blood Smear Review Interp. Reviewed by pathologist. ()?? 05/30/2023 15:42 RBC Morphology MODERATE ()?? 06/08/2023 04:43 Platelet Estimate DECREASED ()?? 06/04/2023 06:00 Retic Count 1.8 % ()?? 05/29/2023 13:40 Retic Count Corrected 1.2 % ()?? 05/29/2023 13:40 Retic Production Index 0.8 % (Low)?? 05/29/2023 13:40 Imm Gran 0.0 % ()?? 06/08/2023 04:43 Abs. Imm Gran 0.0 k/mm3 ()?? 06/08/2023 04:43 ? CARDIAC High Sensitivity Troponin (HSTnT) 13 ng/L ()?? 05/29/2023 06:00 ? CHEM GENERAL Sodium 138 mmol/L ()?? 06/08/2023 04:43 Potassium 4.2 mmol/L ()?? 06/08/2023 04:43 Chloride 106 mmol/L ()?? 06/08/2023 04:43 Bicarbonate Level 24 mmol/L ()?? 06/08/2023 04:43 Anion Gap 8 ()?? 06/08/2023 04:43 Glucose Level 169 mg/dL (High)?? 06/08/2023 04:43 Glucose, POC 218 mg/dL (High)?? 06/09/2023 11:55 BUN 11 mg/dL ()?? 06/08/2023 04:43 Creatinine-Blood 0.7 mg/dL ()?? 06/08/2023 04:43 Estimated GFR Creatinine 109 ML/MIN/1.73 M2 ()?? 06/08/2023 04:43 Calcium 9.1 mg/dL ()?? 06/08/2023 04:43 Protein, Total 6.7 Gm/dL ()?? 06/01/2023 11:48 Albumin 4.4 Gm/dL ()?? 06/01/2023 11:48 AG Ratio 1.9 ()?? 06/01/2023 11:48 LDH 144 units/L ()?? 05/30/2023 15:42 Alkaline Phosphatase 95 units/L ()?? 06/01/2023 11:48 AST (SGOT) 21 units/L ()?? 06/01/2023 11:48 ALT (SGPT) 20 units/L ()?? 06/01/2023 11:48 Bilirubin, Total 1.3 mg/dL (High)?? 06/01/2023 11:48 Bilirubin, Direct 0.3 mg/dL ()?? 05/29/2023 07:53 Bilirubin, Indirect 0.6 mg/dL ()?? 05/29/2023 07:53 Vitamin B12 Level 842 pg/mL ()?? 05/29/2023 13:40 Folic Acid Level 21.5 ng/mL ()?? 05/30/2023 15:42 Uric Acid 5.4 mg/dL ()?? 05/29/2023 13:40 Iron Level 105 mcg/dL ()?? 05/30/2023 15:42 Iron Binding Capacity, Unsaturated 153 mcg/dL ()?? 05/30/2023 15:42 Iron Binding Capacity, Estimated Total 258 mcg/dL ()?? 05/30/2023 15:42 % Iron Saturation 41 % ()?? 05/30/2023 15:42 Ferritin Level 269 ng/mL ()?? 05/29/2023 13:40 ? COAG INR 1.1 ()?? 06/01/2023 11:48 Protime (PT) 11.7 seconds (High)?? 06/01/2023 11:48 APTT 23.8 seconds ()?? 05/29/2023 16:55 Fibrinogen 289 mg/dL ()?? 05/29/2023 13:40 D-Dimer 0.39 mg/L FEU ()?? 05/29/2023 07:53 ? ENDOCRINE/TUMOR MARKER TSH 1.57 uIU/mL ()?? 05/30/2023 15:42 ? FLOW CYTOMETRY/IMMUNOPHENOTYPING Leukemia/Lymphoma Evaluation SPECIMEN COLLECTED FOR ANALYSIS ()?? 05/29/2023 16:55 ? HEME OTHER Bone Marrow SEE SEPARATE REPORT ()?? 06/05/2023 17:40 Hold Blue Top SPECIMEN DISCARDED AFTER 4 HOURS. ()?? 05/29/2023 03:33 ?? IMMUNOLOGY GENERAL IgG 703 mg/dL ()?? 06/01/2023 11:48 IgA 399 mg/dL ()?? 06/01/2023 11:48 IgM 46 mg/dL ()?? 06/01/2023 11:48 Immunofixation-Serum Normal immunofixation pattern (No monoclonal protein detected) ()?? 06/01/2023 11:[address] [place] Light Chains 21.48 mg/L (High)?? 06/01/2023 11:48 Free Lambda Light Chains 16.97 mg/L ()?? 06/01/2023 11:48 Free KappaRatio 1.27 ()?? 06/01/2023 11:48 Haptoglobin <10 mg/dL (Low)?? 05/30/2023 15:42 ?? MISC. CHEMISTRY Total Protein, SPE 6.7 Gm/dL ()?? 06/01/2023 11:48 Albumin, SPE 4.0 Gm/dL ()?? 06/01/2023 11:48 Alpha 1, SPE 0.3 Gm/dL ()?? 06/01/2023 11:48 Alpha 2, SPE 0.6 Gm/dL ()?? 06/01/2023 11:48 Beta, SPE 1.1 Gm/dL ()?? 06/01/2023 11:48 Gamma, SPE 0.7 Gm/dL ()?? 06/01/2023 11:48 Beta, Restricted Band Not Applicable ()?? 06/01/2023 11:48 Beta, Second Restricted Band Not Applicable Gm/dL ()?? 06/01/2023 11:48 Gamma, Restricted Band Not Applicable Gm/dL ()?? 06/01/2023 11:48 Gamma, Second Restricted Band Not Applicable Gm/dL ()?? 06/01/2023 11:48 Interpretation, SPE No apparent monoclonal protein identified. Normal high resolution serum ()?? 06/01/2023 11:48 Hold Gel Top SPECIMEN DISCARDED AFTER 1 WEEK ()?? 06/02/2023 10:05 ?? URINE OTHER Est Creatinine Clearance 117.59 mL/min ()?? 06/04/2023 07:53 ? VIROLOGY Influenza A PCR NEGATIVE ()?? 05/29/2023 16:01 Influenza B PCR NEGATIVE ()?? 05/29/2023 16:01 RSV PCR NEGATIVE ()?? 05/29/2023 16:01 COVID-19 PCR Specimen Source NASAL ()?? 06/08/2023 10:00 COVID-19 PCR Result NEGATIVE ()?? 06/08/2023 10:00 COVID-19 Antigen POC Result NEGATIVE (N)?? 05/29/2023 16:05 ? _ 50 minutes spent on discharge * Black GONSALVES, Noor: PERFORM Event Display: Discharge/Transfer Note Hospital Authored Date: Discharge held off last minute. - will go to [facility] tomorrow. CM on board. Patient Care team information Care Team Personnel Name: Mando Turpin MD Position: Reference Physician Member Role: PCP Address: Address: [address] [place] [address]- Name: Mona Gould RN Position: S RN Member Role: Primary Care Nurse Name: Lidya Nicholas RN Position: S RN Member Role: Primary Care Nurse Name: Sheyla Bates RN Position: [facility] Onco RN Member Role: Primary Care Nurse Name: aJyson Beltran RN Position: S RN Member Role: Primary Care Nurse Name: Jeremiah Ocasio RN Position: S RN Member Role: Primary Care Nurse Name: Gualberto Sánchez RN Position: S RN Member Role: Primary Care Nurse Name: Gali Wisdom RN Position: S RN Member Role: Primary Care Nurse Name: Carolyn Dean RN, I Position: S RN Member Role: Primary Care Nurse Care Team Related Persons Name: YOANDY HARRINGTON Address: [address] [place] [address] Name: THANIA WHITE
--- OUTSIDE RECORDS SUMMARY | 2023-09-30 08:57 | XMS_ITS | Continuity of Care Document ---
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 Phone Papi GONSALVES, Mando Bearden Primary Care Physician Encounter [facility] Date(s): 06/19/23 - 06/19/[address] [address]- Attending Physician: Vamsi Lee MD Allergies, Adverse Reactions, Alerts Substance Reaction Severity Status metformin 1 DIARRHEA Active Clozaril Active 1Michelle, Scientologist, states the patient has been taking Metformin [...] 0 Refills, Maintenance, 06/09/23 15:11:00 EST, Tablet, [facility], Partial fill upon patient request if the prescription is for a schedule II opioid drug., 177, cm, 06/09/23 11:55:00... Start Date: 06/09/23 Stop Date: 06/16/23 Status: Ordered COMFRT TOUCH PAD ALC PREP COMFRT TOUCH PAD ALC PREP, See Instructions, # 100 each, 8 Refills, Maintenance, USE DIRECTED [facility] 5 TIMES A DAY, 06/30/22 11:23:00 [...] mL, 11 Refills, Maintenance, 06/09/23 15:10:00 EST, [facility], E11.9, 177, cm, 06/09/23 11:55:00 EST, Height, 95.8, kg, 05/29/23 13:03:00EST, Dry Weight Start Date: 06/09/23 Status: Ordered levoFLOXacin 250 mg oral tablet 1 tablet = 250 mg, By Mouth, Daily, for 28 days, prophylaxis dose., # 28 tablet, 0 Refills, Acute 07/07/23 16:05:00 EST, 06/09/23 16:05:00 EST, Tablet, [facility], Partial fill upon patient request if the prescription is for a schedule I... Start Date: 06/09/23 Stop Date: 07/07/23 Status: Ordered Levothyroxine Tablet 50, mcg, By Mouth, Daily, 0, 0, 12/02/07 16:54:52, Print NUHA Number, [id number], Constant Indicator Start Date: 12/02/07 Status: Ordered [...] WEEK Start Date: 05/29/23 Status: Ordered Pen Cummings, 31 G x 8 mm BD Ultra [...] Reference Physician Member Role: PCP Address: Address: [address] [place] [address] Drive [address] [place] [address]- Name: Mona Gould RN Position: S RN Member Role: Primary Care Nurse Name: Sheyla Bates RN Position: S Onco RN Member Role: Primary Care Nurse Name: Jayson Beltran RN Position: S RN Member Role: Primary Care Nurse Name: Jeremiah Ocasio RN Position: S RN Member Role: Primary Care Nurse Name: Gualberto Sánchez RN Position: S RN Member Role: Primary Care Nurse Name: Lidya Camacho RN Position: S RN Member Role: Primary Care Nurse Name: Gali Wisdom RN Position: S RN Member Role: Primary Care Nurse Name: Carolyn Dean RN, I Position: S RN Member Role: Primary Care Nurse Care Team Related Persons Name: YOANDY HARRINGTON Address: [address] [facility] [address] [place] [address] Name: THANIA GARNER
--- OUTSIDE RECORDS SUMMARY | 2023-09-30 08:57 | XMS_ITS | Continuity of Care Document ---
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 Phone Mando Turpin MD Primary Care Physician Encounter [facility] [id number] Date(s): 02/21/23 - 02/21/[address] [address]- Encounter Diagnosis Cervical radiculopathy(Final) - 02/21/23 Neck pain(Final) - 02/21/23 Back pain(Final) - 02/21/23 Muscle spasm(Final) - 02/21/23 Discharge Disposition: A-D/C Home Attending Physician: Rodrigue Monae MD Admitting Physician: Rodrigue Monae MD Referring Physician: Not on Staff, Referring MD Allergies, Adverse Reactions, Alerts Substance Reaction Severity Status metformin 1 DIARRHEA Active Clozaril Active 1Michelle, Resource Room Special Education Teacher, states the patient has been taking [...] 0, 0, 12/02/07 16:54:52, Print NUHA Number, [id number], Constant Indicator Start Date: 12/02/07 Status: Ordered lithium 300 mg oral tablet 1 tablet = 300 mg, By Mouth, 2 times a day, # 60 tablet, 1 Refills, Maintenance, Tablet Start Date: 06/10/10 Status: Ordered Medrol 4 mg oral tablet 1 pack/packet, By Mouth, Daily, for 6 days, as directed on package labeling, # 21 tablet, 0 Refills, Acute 02/27/23 10:12:00 EDT, 02/21/23 10:12:00 EDT, Tablet, [facility], Partial fillupon patient request if the prescription is for a s... Start Date: 02/21/23 Stop Date: 02/27/23 Status: Ordered MiraLax = 17 Gm, By Mouth, Daily, 0 Refills, Maintenance Start Date: 03/23/12 Status: Ordered Motrin IB 200 mg oral tablet 2 tablet = 400 mg, By Mouth, Every 4 hours, PRN for fever, # 120 tablet, 0 Refills, Maintenance, Tablet Start Date: 03/23/12 Status: Ordered Multi-Day Plus Minerals 1, tablet, By Mouth, Daily, 0, 0, 12/02/07 16:56:34, Print NUHA Number, [id number], Constant Indicator Start Date: 12/02/07 Status: Ordered One Touch UltraSoft Lancets See Instructions, # 300 each, Refills 0, Tot. Refills 0, Maintenance, TEST BS 2- 3 TIMES PER DAY, 05/11/12 9:49:52 Start Date: 05/11/12 Status: Ordered oxyCODONE 5 mg oral tablet 5 mg, Tablet, By Mouth, Once, STAT, 02/21/23 10:12:00 EDT, Stop date 02/21/23 10:12:00 EDT Start Date: 02/21/23 Stop Date: 02/21/23 Status: Completed oxyCODONE 5 mg oral tablet 2.5 mg, 0.5, tablet, By Mouth, Every 6 hours, PRN, # 6 tablet, Refills 0, Tot. Refills 0, Acute 03/24/23 10:13:00 EST, as needed for pain, 02/21/23 10:13:00 EDT, Route to Pharmacy Electronically, [facility], Partial fill upon patient req... Start Date: 02/21/23 Stop Date: 03/24/23 Status: Ordered Ozempic (0.25 mg or 0.5 [...] Every... Start Date: 10/08/20 Status: Ordered Pen Medicine Bow, 31 G x 8 mm BD Ultra Fine III See Instructions, # 150 each, Refills 11, Tot. Refills 11, Maintenance, T2DM E11.9 for injecting insulin 4x daily, 12/17/19 4:07:00 EDT, Compound, 176, cm, 12/16/19 9:46:00 EDT, Height Start Date: 12/17/19 Status: Ordered Pepcid Tablet 40, mg, 2 times a day, 0, 0, 12/02/07 16:57:18, Print NUHA Number, [id number], Constant Indicator Start Date: 12/02/07 Status: Ordered [...] Active Obesity Confirmed Active Schizophrenia Confirmed Active Vital Signs Most recent to oldest [Reference Range]: 1 2 3 Height 178 cm (02/21/23 10:27 AM) 178 cm (02/21/23 3:46 AM) 178 cm (02/21/23 3: AM) Weight 91 kg (02/21/23 10: AM) 91 kg (02/21/23 3:46 AM) 91 kg (02/21/23 3: AM) Oxygen Saturation [94-100 %] 97 % (02/21/23: AM) 97 % (02/21/23: AM) Pulse Rate [55-90 bpm] 78 bpm (02/21/23 10: AM) 87 bpm (02/21/23 3: AM) Body Mass Index [18.5-24.99 kg/m2] 28.72 kg/m2 *H* (02/21/23 10: AM) 28.72 kg/m2 *H* (02/21/23 3: AM) Blood Pressure [90-138/55-84 mm Hg] 107/67mm Hg (02/21/23 10: AM) 105/65mm Hg (02/21/23: AM) Respiratory Rate [16-30 br/min] 14 br/min *L* (02/21/23 10: AM) 20 br/min (02/21/23 10: AM) 18 br/min (02/21/23:26 AM) Temperature [96.8-100.4 DegF] 99.2 DegF (02/21/23 10:27 AM) 98.4 DegF (02/21/23 3:26 AM) Mode of Delivery (Oxygen) Room air (02/21/23 10:27 AM) Room air (02/21/23 3:26 AM) Blood pressure sites Arm, left (02/21/23 10:27 AM) Arm, left (02/21/23 3:26 AM) Temperature Route Oral (02/21/23 10:27 AM) Oral (02/21/23 3:26 AM) Dry Weight 91 kg (02/21/23 10:27 AM) 91 kg (02/21/23 3:46 AM) 91 kg (02/21/23 3:26 AM) Weight Obtained Via Patient/family state d (02/21/23 3:26 AM) Dry Weight Obtained Via Patient/family s tated (02/21/23 3:26 AM) Note * Fransisca Garcia NP: PERFORM Event Display: Patient Education Leaflets Authored Date: Neck Sprain or Strain ?? [id number] Neck Sprain or Strain A sudden force that causes turning or bending of the neck can cause a sprain or strain. An example would be the force from a car accident. This can stretch or tear muscles called a strain. It can also stretch or tear ligaments called a sprain. Either of these can cause neck pain. Sometimes neck pain occurs after a simple awkward movement. In either case, muscle spasm is commonly present and contributes to the pain.?? Unless you had a forceful physical injury (for instance, a car accident or fall), X-rays are often not ordered for the initial evaluation of neck pain. If pain continues and doesn't respond to medical treatment, X-rays and other tests may be done later. Home care ??? You may feel more soreness and spasm the first few days after the injury. Rest until symptoms start to improve. ??? When lying down, use a comfortable pillow or a rolled towel that supports the head and keeps the spine in a neutral position. The position of the head should not be tilted forward or backward. ??? Apply an ice pack over the injured area for 15 to 20 minutes every 3 to 6 hours. Do this for the first 24 to 48 hours. To make an ice pack, put ice cubes in a plastic bag that seals at the top. Wrap the bag in a thin towel or cloth before using it. Don???t put ice or an ice pack directly on the skin. After 48 hours, apply heat (warm shower or warm bath) for 15 to 20 minutes several times a day. Or alternate ice and heat. ??? You may use [id number] pain medicine to control pain, unless another pain medicine was prescribed. Non- steroidal anti-inflammatory drugs (NSAIDs) like ibuprofen or naproxen may work better than acetaminophen. If you have chronic liver orkidney disease, ever had a stomach ulcer or gastrointestinal bleeding, or take blood thinners, talkwith your healthcare provider before using these medicines. ??? If a soft cervical collar was prescribed, only wear it for periods of increased pain. It should not be worn for more than 3 hours a day, or for longer than 1 to 2 weeks. ?? Follow-up care Follow up with your healthcare provider, or as directed. Physical therapy may be needed. Sometimes fractures don???t show up on the first X-ray. Bruises and sprains can sometimes hurt as much as a fracture. These injuries can take time to heal completely. If your symptoms don???t improveor they get worse, talk with your provider. You may need a repeat X-ray or other tests. If X-rays were taken, you will be told of any new findings that may affect your care. ?? Call 911 Call 911 if you have: ??? Neck swelling, difficulty or painful swallowing ??? Trouble breathing ???Chest pain ?? When to get medical advice Call your healthcare provider right away if any of these occur: ??? Pain gets worse or spreads intoyour arms or legs ??? Weakness or numbness in 1 or both arms or legs ?? Last Reviewed Date: 2021 ?? [id number] [employer]. All rights reserved. This information is not intended as a substitute for professional medical care. Always follow your healthcare professional's instructions. ?? * Fransisca Garcia NP: PERFORM Event Display: Patient Education Leaflets Authored Date: [id number] Pinched Nerve in the??Neck ?? [id number] Pinched Nerve in the??Neck A pinched nerve in the neck (cervical radiculopathy) is caused when the nerve that goes from the spinal cord to the neck or arm is irritated or has pressure on it. This may be caused by a bulging spinal disk. A spinal disk is the cushion between each spinal bone (vertebrae). Or it may be caused by a narrowing of the spinal joint because of osteoarthritis and wear and tear from repeated injuries. A pinched nerve can cause numbness, tingling, deep aching, or electrical shooting pain from the side of the neck all the way down to the fingers on one side. It can also cause weakness of the musclesthat the nerve controls. A pinched nerve may start after a sudden turning or bending force (such as in a car accident) or after a simple awkward movement. In either case, muscle spasm is commonly present and adds to the pain. Home care Follow these guidelines when caring for yourself at home: ??? Rest and relax the muscles. Use a comfortable pillow that supports your head and keeps your spine in a natural (neutral) position. Your head shouldn???t be tilted forward or backward. A rolled-up towel may help for a custom fit.??When standing or sitting, keep your neck in line with your body. Keep your head up and shoulders down. Stayaway from activities that need you to move your neck a lot. ??? Use heat and massage to help ease the pain. Take a hot shower or bath. Or use a heating pad. You can also use a cold pack for relief. You can make a cold pack by wrapping a plastic bag of crushed or cubed ice in a thin towel. Try both heat and cold. Use the method that feels best. Do this for 20 minutes several times a day. ??? Use acetaminophen or ibuprofen to control pain, unless another pain medicine was prescribed. If you have chronic liver or kidney disease, talk with your healthcare provider before using these medicines. Also talk with your provider if you???ve had a stomach ulcer or gastrointestinal bleeding. ??? Reduce stress. Stress can make it longer for your pain to go away. ??? Do any exercises or stretches that were given to you as part of your discharge plan. ??? Wear a soft collar, if prescribed. ??? Try physical therapy and massages. ??? Ask about injections near the affected nerve or surgery for a more serious injury. ?? Follow-up care Follow up with your healthcare provider, or as advised. If you have muscle weakness, seek attentionright away. You may need more tests.??Tell your provider about any fever, chills, or weight loss. If X-rays were taken, a radiologist may look at them. You will be told of any new findings that mayaffect your care. ?? When to get medical advice Call your healthcare provider right away if any of the following occur: ??? Pain becomes worse evenafter taking prescribed pain medicine ??? Weakness in the arm or legs ??? Numbness in the arm gets worse ??? Trouble breathing or swallowing ?? Last Reviewed Date: 2022 ?? [id number] [employer]. All rights reserved. This information is not intended as a substitute for professional medical care. Always follow your healthcare professional's instructions. ?? Patient Care team information Care Team Personnel Name: Mando Turpin MD Position: Reference Physician Member Role: PCP Address: Address: [address] [place] [address] [place] [address]- Name: Jeremiah Ocasio RN Position: [facility] RN Member Role: Primary Care Nurse Name: Rodrigue Monae MD Position: [facility] ED Medicine MD Member Role: Admitting Physician Address: Address: [address] [place] [address]- Name: Marifer Novoa RN Position: [facility] ED RN W/OE and Tasks Member Role: Patient Care Provider Name: Fransisca Garcia NP Position: [facility] Associate Professional Member Role: ED Physician Oxygen Tank Filler Address: Address: [address] [place] [address] [place] [address]- Care Team Related Persons Name: YOANDY HARRINGTON Address: [address] [place] [address] Name: THANIA GARNER
--- OUTSIDE RECORDS SUMMARY | 2023-09-30 08:57 | XMS_ITS | Continuity of Care Document ---
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 Phone Papi GONSALVES, Mando Bearden Primary Care Physician [phone] Encounter [facility] Date(s): 06/17/23 - 07/17/23 [facility] [address] [place] [address]- Allergies, Adverse Reactions, Alerts Substance Reaction Severity Status metformin 1 DIARRHEA Active Clozaril Active 1Michelle, Job Training Specialist, states the patient has been taking [...] 0 Refills, Maintenance, 06/09/23 15:11:00 EST, Tablet, [facility] 3, Partial fill upon patient request if the prescription is for a schedule II opioid drug., 177, cm, 06/09/23 11:55:00... Start Date: 06/09/23 Stop Date: 06/16/23 Status: Ordered COMFRT TOUCH PAD ALC PREP COMFRT TOUCH PAD ALC PREP, See Instructions, # 100 each, 8 Refills, Maintenance, USE DIRECTED [facility] 5 TIMES A DAY, 06/30/22 [...] mL, 11 Refills, Maintenance, 06/09/23 15:10:00 EST, [facility], E11.9, 177, cm, 06/09/23 11:55:00 EST, Height, 95.8, kg, 05/29/23 13:03:00EST, Dry Weight Start Date: 06/09/23 Status: Ordered Levothyroxine Tablet 50, mcg, By Mouth, Daily, 0, 0, 12/02/07 16:54:52, Print NUHA Number, [id number], Constant Indicator Start Date: 12/02/07 Status: Ordered [...] WEEK Start Date: 05/29/23 Status: Ordered Pen [place], 31 G x 8 mm BD Ultra [...] Reference Physician Member Role: PCP Address: Address: [address] [place] [address] [address] [place] [id number] Name: Mona Gould RN Position: S RN Member Role: Primary Care Nurse Name: Sheyla Bates RN Position: [facility] RN Member Role: Primary Care Nurse Name: Jayson Beltran RN Position: [facility] RN Member Role: Primary Care Nurse Name: Jeremiah Ocasio RN Position: [facility] RN Member Role: Primary Care Nurse Name: Gualberto Sánchez RN Position: [facility] RN Member Role: Primary Care Nurse Name: Lidya Camacho RN Position: [facility] RN Member Role: Primary Care Nurse Name: Gali Wisdom RN Position: [facility] RN Member Role: Primary Care Nurse Name: Carolyn Dean RN, I Position: [facility] RN Member Role: Primary Care Nurse Care Team Related Persons Name: YOANDY HARRINGTON Address: [address] [place] [address] Name: THANIA GARNER
--- OUTSIDE RECORDS SUMMARY | 2023-09-30 08:58 | XMS_ITS | Continuity of Care Document ---
Author Organization [facility] ter Address [address] [place] [id number]- Care Team Providers Care Truck Switcher Name Role Phone Papi GONSALVES, Mando Bearden Primary Care Physician Encounter [facility] [place] [place] ACCT R [id number] Date(s): 09/24/23 - 09/28/[address] [address]- Encounter Diagnosis Whole body pain(Final) - 09/24/23 Discharge Disposition: A-Transfer VNA/Home Health Attending Physician: Ramiro Tran MD Admitting Physician: Meliton Mckay DO Referring Physician: Not on Staff, Referring MD Allergies, Adverse Reactions, Alerts Substance Reaction Severity Status metformin 1 DIARRHEA Active Clozaril Active 1Michelle, Leach Runner, states the patient has been taking Metformin with no side effects.We will cancel this as an allergy in his profile to lessen confusion in the future. Medications Acetaminophen Tablet 650 mg, Tablet, By Mouth, Every 4 hours, PRN for Pain , Mild, Temperature Greater than 100.5, Routine, 09/24/23 13:47:00 EDT Start Date: 09/24/23 Stop Date: 09/29/23 Status: Discontinued Alcohol Pads See Instructions, # 150 each, [...] 12/30/10 Status: Ordered aspirin 81 mg oral delayed release tablet 81 mg, 1, tablet, By Mouth, Daily, Maintenance, 09/24/23 16:56:00 EDT, Partial fill upon patient request if the prescription is for a schedule II opioid drug. Start Date: 09/24/23 Status: Ordered atorvastatin 10 mg oral tablet 1 tablet = 10 mg, By Mouth, Daily at bedtime, 0 Refills, Maintenance, 05/29/23 9:32:00 EST, Partialfill upon patient request if the prescription is for a schedule II opioid drug. Start Date: 05/29/23 Status: Ordered Colace sodium 100 mg oral capsule 200 mg, 2, capsule, By Mouth, 2 times a day, Maintenance, 09/24/23 16:55:00 EDT, Partial fill upon patient request if the prescription is for a schedule II opioid drug. Start Date: 09/24/23 Status: Ordered COMFRT TOUCH PAD ALC PREP COMFRT TOUCH PAD ALC PREP, See Instructions, # 100 each, 8 Refills, Maintenance, USE DIRECTED TOCLEAN AREA 5 TIMES A DAY, 06/30/22 11:23:00 EST, 176, cm, 01/29/21 16:28:00 EDT, Height Start Date: 06/30/22 Status: Ordered Freestyle alo 2 14-day sensors [...] 12/31/11 15:02:38 Start Date: 12/31/11 Status: Ordered KlonoPIN 0.5 mg oral tablet 1 tablet = 0.5 mg, By Mouth, 2 times a day, # 60 tablet, 0 Refills, Maintenance, 09/28/23 13:43:00 EDT, Tablet, [facility], Partial fill upon patient request if the prescription is for a schedule II opioid drug., 183, cm, 09/28/23 11:07:00 E... Start Date: 09/28/23 Status: Ordered Lantus Solostar Pen 100 units/mL subcutaneous solution = 48 units, Subcutaneous Injection, Daily, Maintenance, 09/24/23 16:52:00 EDT, Partial fill upon patient request if the prescription is for a schedule II opioid drug. Start Date: 09/24/23 Status: Ordered levothyroxine 0.05 mg oral tablet 1 tablet = 50 mcg, By Mouth, Daily, Maintenance, 09/24/23 16:53:00 EDT, Partial fill upon patient request if the prescription is for a schedule II opioid drug. Start Date: 09/24/23 Status: Ordered magnesium oxide 400 mg oral tablet 1 tablet = 400 mg, By Mouth, Daily, 0 Refills, Maintenance, 05/29/23 9:29:00 EST, Tablet, Partial fill upon patient request if the prescription is for a schedule II opioid drug. Start Date: 05/29/23 Status: Ordered metoprolol 50 mg oral tablet 50 mg, 1, tablet, By Mouth, 2 times a day, Maintenance, 09/24/23 16:55:00 EDT, Partial fill upon patient request if the prescription is for a schedule II opioid drug. Start Date: 09/24/23 Status: Ordered metoprolol 50 mg oral tablet 50 mg, Tablet, By Mouth, Hold for: SBP<100, 09/27/23 21:00:00 EDT Start Date: 09/27/23 Stop Date: 09/27/23 Status: Completed One Touch UltraSoft Lancets See Instructions, # 300 each, Refills 0, Tot. Refills 0, Maintenance, TEST BS 2- 3 TIMES PER DAY, 05/11/12 9:49:52 Start Date: 05/11/12 Status: Ordered Ozempic 2 mg/3 mL (0.25 mg or 0.5 mg dose) subcutaneous solution = 0.5 mg, Subcutaneous Injection, Every Thursday Start Date: 05/29/23 Status: Ordered Pen [place], 31 G x 8 mm BD Ultra Fine III See Instructions, # 150 each, Refills 11, Tot. Refills 11, Maintenance, T2DM E11.9 for injecting insulin 4x daily, 12/17/19 4:07:00 EDT, Compound, 176, cm, 12/16/19 9:46:00 EDT, Height Start Date: 12/17/19 Status: Ordered Pepcid 20 mg oral tablet 2 tablet = 40 mg, By Mouth, 2 times a day, Maintenance, 09/24/23 16:54:00 EDT, Partial fill upon patient request if the prescription is for a schedule II opioid drug. Start Date: 09/24/23 Status: Ordered perphenazine 8 mg oral tablet 12 mg, By Mouth, 3 times a day, # 60 tablet, Refills 3, Tot. Refills 3, Maintenance, 09/26/23 10:55:00 EDT, Route to Pharmacy Electronically, [facility], Partial fill upon patient request if the prescription is for a schedule II opioid drug.... Start Date: 09/26/23 Status: Ordered PLASTIC URINAL PLASTIC URINAL, See Instructions, # 1 each, Refills 0, Tot. Refills 0, Maintenance, USE DIRECTEDAT HOME, 01/25/10 11:17:50 Start Date: 01/25/10 Status: Ordered Protonix 40 mg oral delayed release tablet 1 tablet = 40 mg, By Mouth, Daily, 0 Refills, Maintenance, 09/24/23 16:55:00 EDT Start Date: 09/24/23 Status: Ordered Tab-A-Devon oral tablet 1 tablet, [...] Status: Ordered traZODone 100 mg oral tablet 200 mg, 2, tablet, By Mouth, Daily at bedtime, # 30 tablet, Refills 0, Tot. Refills 0, Maintenance,09/28/23 13:44:00 EDT, Route to Pharmacy Electronically, [facility], Partial fill upon patient request if the prescription is for a schedule... Start Date: 09/28/23 Status: Ordered Tylenol Extra Strength 500 mg oral tablet 1 tablet = 500 mg, By Mouth, Every 6 hours, PRN Pain , Mild, Maintenance, 09/24/23 16:56:00 EDT, Partial fill upon patient request if the prescription is for a schedule II opioid drug. Start Date: 09/24/23 Status: Ordered Vitamin D3 1000 intl units oral capsule 1 capsule = 25 mcg, By Mouth, Daily, Maintenance, 09/24/23 16:56:00 EDT, Partial fill upon patient request if the prescription is for a schedule II opioid drug. Start Date: 09/24/23 Status: Ordered Problem List Condition Confirmation Course Effective Dates Status H ealth Status Informant Bipolar Confirmed 07/13/08 Active Diabetes mellitus type 2 Confirmed 07/13/00 Active Hypertension Confirmed Active Hypothyroidism Confirmed Active Pulmonary nodule, right Confirmed 05/30/23 Active Obesity Confirmed Active Pancytopenia Confirmed 05/29/23 Active Schizophrenia Confirmed Active Results Radiology Reports * Exam Date Time Procedure Performing Provider Status 09/24/23 2:27 PM Chest 2 Views Frontal and Lat Toya Webb (Verified) Notes: (Chest 2 Views Frontal and Lat) Reason For Exam: Shortness of Breath RESULT: Chest 2 Views Frontal and Lat Chest 2 Views Frontal and Lat Reason: Shortness of Breath; Clinical Question(s): Pneumonia COMPARISON: Multiple prior chest radiographs with the most recent dated 05/29/2023. FINDINGS: LINES AND TUBES: None. LUNGS AND PLEURA: Clear lungs. Normal pulmonary vascularity. No pleural effusion. No pneumothorax. HEART, MEDIASTINUM AND YARELI: Heart is normal in size. Normal mediastinal and hilar contour. BONES AND SOFT TISSUES: No acute abnormality. IMPRESSION: No acute abnormality. No change. WSN: [id number] Ordering Physician: Lou Soliman Dictated By: Tao Gaitan MD, V Dictated Date/Time: 09/24/23 2:30 pm Reviewed By: Tao Gaitan MD, V Signed By: Tao Gaitan MD, V Signed Date/Time: 09/24/23 2:30 pm Transcribed By: ROGER Transcribed Date/Time: 09/24/23 2:29 pm Vital Signs Most recent to oldest [Reference Range]: 1 2 3 Height 183 cm (09/28/23 11:07 AM) 183 cm (09/27/23 12:02 PM) 183 cm (09/26/23 4:22 PM) Weight 95 kg (09/24/23 6:29 PM) Oxygen Saturation [94-100 %] 100 % (09/28/23 11:07 AM) 97 % (09/27/23 12:02 PM) 98 % (09/26/23 6:00 AM) Pulse Rate [55-90 bpm] 88 bpm (09/28/23 11:07 AM) 84 bpm (09/27/23 10:01 PM) 101 bpm *H* (09/27/23 12:02 PM) Body Mass Index [18.5-24.99 kg/m2] 28.37 kg/m2 *H* (09/24/23 6:29 PM) Blood Pressure [90-138/55-84 mm Hg] 147/68mm Hg *H* (09/28/23 11:07 AM) 144/68mm Hg *H* (09/27/23 10:01 PM) 160/96mm Hg *H* (09/27/23 12:02 PM) Respiratory Rate [16-30 br/min] 16 br/min (09/28/23 11:07 AM) 18 br/min (09/27/23 10:00 PM) 18 br/min (09/27/23 7:57 PM) Temperature [96.8-100.4 DegF] 98.0 DegF (09/28/23 11:07 AM) 99.1 DegF (09/27/23 12:02 PM) 98.8 DegF (09/26/23 6:00 AM) Mode of Delivery (Oxygen) Room air (09/28/23 11:07 AM) Room air (09/27/23 12:02 PM) Room air (09/26/23 6:00 AM) Blood pressure sites Arm, left (09/28/23 11:07 AM) Arm, right (09/27/23 10:00 PM) Arm, left (09/27/23 12:02 PM) Temperature Route Oral (09/28/23 11:07 AM) Oral (09/27/23 12:02 PM) Oral (09/26/23 6:00 AM) Dry Weight 95 kg (09/24/23 6:29 PM) 95 kg (09/24/23 11:15 AM) History and physical note * Wyatt GONSALVES, Maria Teresa: PERFORM, MODIFY Event Display: History and Physical Hospital Authored Date: [id number] Patient: ??EUGENIO WHITE ? Age:??58 Years?Sex:??Male?:??1965?? Chief Complaint/Reason for Consultation If I had a gun, I would honestly shoot somebody. History of Present Illness Date of exam: 09/24/2023 ?? 58-year-old male with past medical history significant for diabetes, hypertension, hypothyroidism, bipolar disorder, schizophrenia, pancytopenia, splenomegaly, myelodysplastic syndrome, refused treatment, on monthly CBC monitoring.?? He presented to ED with generalized body pain, states it is ongoin g for months, no aggravating relieving factors, generalized aching, no specific areas of acute pain.?? Endorses substernal chest pain feels like part of the generalized body pain, not associated withshortness of breath, diaphoresis, nausea, vomiting, palpitations or syncope.?? Denies dysuria or change in bowel habits.?? No joint pains or swelling.?? No skin rash.?? No fevers or chills.?? Has vague abdominal pain diffuse, nonradiating, not associated p.o. intake.?? Endorses ongoing auditory hallucinations.?? No visual hallucinations.?? Feels depressed.?? Feels that he is not getting correct psychiatric medications at the facility he is living in.?? Reportedly, he said to the ED physician if I had a gun I would honestly shoot somebody .?? No SI. ?? Upon arrival to ED, afebrile, hemodynamically stable and saturating well on room air.?? Labs showing pancytopenia, leukopenia with WBC count 0.7, absolute neutrophil 0, H&H 7.6/22.9, platelet counts 11.?? INR 1.2.?? Electrolytes within normal limits.?? LFTs normal.?? Initial troponin negative.?? TSH normal.?? Chest x-ray with no acute disease.?? Admitted for further management of pancytopenia with neutropenia and ongoing active psych issues. ?? During my exam, resting comfortably.?? Able to have a conversation but shouts in pain in the middle of conversation patient normally.?? Has tangential thought. Review of Systems Unable to obtain reliable review of systems due to patient condition Objective Vital Signs?? Temperature: 98.2 DegF (09/24/23 17:08:00) Temperature Route: Oral (09/24/23 17:08:00) Pulse Rate: 88 bpm (09/24/23 17:08:00) Respiratory Rate: 16 br/min (09/24/23 17:08:00) Systolic Blood Pressure: 118 mm Hg (09/24/23 17:08:00) Diastolic Blood Pressure: 83 mm Hg (09/24/23 17:08:00) Blood pressure sites: Arm, right (09/24/23 17:08:00) Mean Arterial Pressure: 106 mm Hg (09/24/23 11:15:00) Pulse Pressure: 89 mm Hg (09/24/23 11:15:00) Oxygen Saturation: 100 % (09/24/23 17:08:00) Mode of Delivery (Oxygen): Room air (09/24/23 17:08:00) Early Warning Score: 6 (09/24/23 17:13:39) ? Physical Exam General: NAD HEENT: EOMI, PERRA Neck: Supple Cardiac: S1, S2 heard, RRR Pulmonary: Clear to auscultation bilaterally, good bilateral air entry Abdomen: Soft, nontender, nondistended, bowel sounds heard Extremities: No cyanosis, clubbing Neuro: No focal deficits, awake and alert Psych: Mood and affect appropriate for encounter Assessment/Plan Assessment:??58-year-old male with past medical history significant for diabetes, hypertension, hypothyroidism, bipolar disorder, schizophrenia, pancytopenia, splenomegaly, myelodysplastic syndrome, refused treatment, on monthly CBC monitoring, now admitted with homicidal ideation and pancytopenia ?? Homicidal ideation (R45.850) ?Grouped with??Bipolar disorder (F31.9),??Schizophrenia (F20.9) ? Psychiatric consult obtained, appreciate input ??Recommendations as below: -Trilafon 8 mg PO twice daily with further optimization as clinically indicated for psychosis and/or mood stabilization. Prior home regimen was for 12 mg three times daily (TDD 36 mg). -Vistaril 50 mg PO Q6H PRN anxiety and Trazodone 50 mg PO daily at bedtime PRN insomnia. -Haldol 5 mg, Ativan 2 mg, and Benadryl 50 mg PO/IM Q6H PRN agitation/psychosis.??The preference isfor PO medications, but if the patient refuses the oral medications and there is sufficient acute safety concern, can judiciously utilize IM equivalents for severe agitation.??This medication combination should only be utilized in the hospital setting and there is no need to discharge the patient on these medications. -ECG for baseline QT/QTc when able as the patient is on multiple potential QT- prolonging agents. - May not leave??AMA ?? Myelodysplastic syndrome (D46.9) ?Grouped with??Pancytopenia (D61.818) ? Diagnosed??earlier in the year??during his??hospitalization Refused treatment??for MDS, gets??monthly CBC checks.?? Had refused transfusion in the past given his filiberto/jewish. WBC count 0.7 with ANC 0.??He is not afebrile, no stigmata for neutropenic sepsis.??Follow neutropenic precautions H&H 7.6/22.9, closely monitor counts Platelet count 11.??No evidence for active bleeding, closely monitor Hematology consult placed, follow-up with recommendations ?? Whole body pain (R52):??Unclear etiology.?? Check inflammatory markers??ESR, CRP, CK ?? Diabetes mellitus type 2 (E11.9):??SSI with POC glucose checks ?? Hypertension (I10):??Cont metoprolol ?? Hypothyroidism (E03.9):??Continue levothyroxine ?? VTE Prophylaxis:??Low risk, chemoprophylaxis contraindicated due to thrombocytopenia ?VTE Prophylaxis Assessment:??Risk Level documented as Low Risk ?? Code Status:??Full code, presumed ? Histories Allergies Allergies ?(Active and Proposed Allergies Only) Clozaril? (Severity: Unknown severity, Onset: Unknown) metformin? (Severity: Unknown severity, Onset: Unknown) ?Reactions: DIARRHEA ?Comments: Marilee, Leach Runner, states the patient has been taking Metformin with noside effects. ??We will ?cancel this as an allergy in his profile to lessen confusion in the future. ? Past Medical History/Problem List Active Problems(9) Bipolar Diabetes mellitus type 2 Hypertension Hypothyroidism Obese class I Obesity Pancytopenia Pulmonary nodule, right Schizophrenia ? Past Surgical History No surgery history documented. ? Social History h/o tobacco use, nonalcoholic, denies recreational drug use ?? Family History No Family History of psychiatric illness ? Medications Home Medications Acetaminophen (Tylenol Extra Strength 500 mg oral tablet)?1?tab(s)?500?Milligram?By Mouth?Every 6 hours?as needed?Pain , Mild Aspirin (aspirin 81 mg oral delayed release tablet)?81?Milligram?1?tablet?By Mouth?Daily Atorvastatin (atorvastatin 10 mg oral tablet)?1?tab(s)?10?Milligram?By Mouth?Daily at bedtime Cholecalciferol (Vitamin D3 1000 intl units oral capsule)?1?capsule?25?Microgram?By Mouth?Daily Docusate (Colace sodium 100 mg oral capsule)?200?Milligram?2?capsule?By Mouth?2 times a day Durable Medical Equipment (Alcohol Wipes)?See Instructions?use 3x/day [...] 90 day supply Durable Medical Equipment (Pen [place], 31 G x 8 mm BD Ultra [...] Instructions?test blood sugar 4x day, DX E11.9 Durable Medical Equipment (Alcohol Pads)?See Instructions?for 30?Days?use as directed to clean skin 5x a day Famotidine (Pepcid 20 mg oral tablet)?2?tab(s)?40?Milligram?By Mouth?2 times a day Insulin Glargine (Lantus Solostar Pen 100 units/mL subcutaneous solution)?48?unit(s)?Subcutaneous Injection?Daily Levothyroxine (levothyroxine 0.05 mg oral tablet)?1?tab(s)?50?Microgram?By Mouth?Daily Magnesium Oxide (magnesium oxide 400 mg oral tablet)?1?tab(s)?400?Milligram?By Mouth?Daily Metoprolol (metoprolol 50 mg oral tablet)?50?Milligram?1?tablet?By Mouth?2 times a day Miscellaneous Rx (PLASTIC ??URINAL)?See Instructions?USE DIRECTED AT HOME Miscellaneous Rx ([employer] alo 2 reader)?See Instructions?Use to check BG up to 5 times/day Miscellaneous Rx ([employer]style alo 2 14-day sensors)?See Instructions?Use to check BG up to 5 times/day, change every 14 days, wear on the back of the upper arm Miscellaneous Rx (COMFRT TOUCH PAD ALC PREP)?See Instructions?USE DIRECTED TO CLEAN AREA 5TIMES A DAY Multivitamin (Tab-A-Devon oral tablet)?1?tab(s)?By Mouth?Daily Pantoprazole (Protonix 40 mg oral delayed release tablet)?1?tab(s)?40?Milligram?By Mouth?Daily semaglutide (Ozempic 2 mg/3 mL (0.25 mg or 0.5 mg dose) subcutaneous solution)?0.5?Milligram?Subcutaneous Injection?Every Thursday Tizanidine (tiZANidine 4 mg oral tablet)?4?Milligram?1?tablet?By Mouth?Daily at bedtime ? Results Recent Labs BLOOD COUNT & DIFF WBC 0.7 k/mm3 (Critical)?? 09/24/2023 11:55 RBC 2.64 m/mm3 (Low)?? 09/24/2023 11:55 Hgb 7.6 Gm/dL (Low)?? 09/24/2023 11:55 Hct 22.9 % (Low)?? 09/24/2023 11:55 MCV 86.7 femtoliters ()?? 09/24/2023 11:55 MCH 28.8 pg ()?? 09/24/2023 11:55 MCHC 33.2 g/dL ()?? 09/24/2023 11:55 Platelet Count 11 k/mm3 (Critical)?? 09/24/2023 11:55 RDW-SD 68.5 femtoliters (High)?? 09/24/2023 11:55 MPV NOT MEASURED femtoliters ()?? 09/24/2023 11:55 Nucleated RBC (Automated) 0.0 #/100 WBC'S ()?? 09/24/2023 11:55 Abs. NRBC 0.0 k/mm3 ()?? 09/24/2023 11:55 Abs. Neut 0.0 k/mm3 (Low)?? 09/24/2023 11:55 Abs. Lymph 0.6 k/mm3 (Low)?? 09/24/2023 11:55 Abs. [place] 0.1 k/mm3 (Low)?? 09/24/2023 11:55 Abs. Eo 0.0 k/mm3 ()?? 09/24/2023 11:55 Abs. Baso 0.0 k/mm3 ()?? 09/24/2023 11:55 Neut % 2.8 % (Low)?? 09/24/2023 11:55 Lymph % 81.9 % (High)?? 09/24/2023 11:55 [place] % 15.3 % (High)?? 09/24/2023 11:55 Eos % 0.0 % ()?? 09/24/2023 11:55 Baso % 0.0 % ()?? 09/24/2023 11:55 Imm Gran 0.0 % ()?? 09/24/2023 11:55 Abs. Imm Gran 0.0 k/mm3 ()?? 09/24/2023 11:55 ?? CARDIAC High Sensitivity Troponin (HSTnT) 16 ng/L ()?? 09/24/2023 11:55 ?? CHEM GENERAL Sodium 136 mmol/L ()?? 09/24/2023 11:55 Potassium 4.3 mmol/L ()?? 09/24/2023 11:55 Chloride 99 mmol/L ()?? 09/24/2023 11:55 Bicarbonate Level 21 mmol/L (Low)?? 09/24/2023 11:55 Anion Gap 16 ()?? 09/24/2023 11:55 Glucose Level 273 mg/dL (High)?? 09/24/2023 11:55 BUN 8 mg/dL ()?? 09/24/2023 11:55 Creatinine-Blood 0.73 mg/dL ()?? 09/24/2023 11:55 Estimated GFR Creatinine 105 ML/MIN/1.73 M2 ()?? 09/24/2023 11:55 Calcium 9.7 mg/dL ()?? 09/24/2023 11:55 Protein, Total 6.8 Gm/dL ()?? 09/24/2023 11:55 Albumin 4.0 Gm/dL ()?? 09/24/2023 11:55 AG Ratio 1.4 ()?? 09/24/2023 11:55 Alkaline Phosphatase 87 units/L ()?? 09/24/2023 11:55 AST (SGOT) 21 units/L ()?? 09/24/2023 11:55 ALT (SGPT) 17 units/L ()?? 09/24/2023 11:55 Bilirubin, Total 0.9 mg/dL ()?? 09/24/2023 11:55 ?? COAG INR 1.2 (High)?? 09/24/2023 11:55 Protime (PT) 13.0 seconds (High)?? 09/24/2023 11:55 APTT 27.8 seconds ()?? 09/24/2023 11:55 ?? ENDOCRINE/TUMOR MARKER TSH 1.68 uIU/mL ()?? 09/24/2023 11:55 ?? URINE OTHER Est Creatinine Clearance 119.76 mL/min ()?? 09/24/2023 12:32 ? Image ?XR Chest 2 Views Frontal and Lat??09/24/2023 14:27 by Trinidad Webb ?12 Lead ECG??09/24/2023 11:35 by Ricky Muniz MD ? EKG study * Event Display: EKG Authored Date: * Event Display: ECG 12-Lead Authored Date: Please click on pdf link to open report * Event Display: ECG 12-Lead Authored Date: Ventricular Rate: 104 BPM Atrial Rate: 104 BPM P-R Interval: 246 ms QRS Duration: 68 ms Q-T Interval: 314 ms QTC Calculation(Bazett): 412 ms P Colton: 45 degrees R Colton: 15 degrees T Colton: 22 degrees Sinus tachycardia with 1st degree A-V block Otherwise normal ECG When compared with ECG of 07-JUN-2023 10:03, QT has shortened Confirmed by Ricky Muniz ([id number]) on 09/24/2023 11:58:25 AM [place]: Ricky Muniz [facility] Progress note * Nirmal Yañez RN: PERFORM, SIGN, VERIFY Event Display: [facility] Authored Date: Patient: EUGENIO WHITE Age: 58 years Sex: Male : 1965 Associated Diagnoses: None Author: Nirmal Yañez RN Findings Evaluation AO3, no agitation. patient pain managed per JUL. report given to VNA, patient discharged home. see flowsheets. Discharge Information Case Management Discharge Plan : Case Management Discharge Plan Data 09/26/2023 15:50 EDT Discharge Level of Care at Discharge Homehealth/VNA Discharge VNA/Hospice/Home Care [facility] Name of Agency #1 [facility] Agency Parking Lot Laborer #1 Intake Service Categories #1 Other: Medication Administation Rehabilitation Discharge : Rehab Discharge Index 09/26/2023 6:20 EDT Comments on treatment indicated Patient demonstrates independence c all functional ADL's s AD. Rec d/c home once medically cleared Full chart review completed Yes Other findings Patient demonstrates independence c all functional ADL's s AD. Rec d/c home once medically cleared. Patient was seen independently ambulating in his room and deferred any intervention from this therapist including therapeutic exercise to modify LBP. * Jackeline Logan MD: PERFORM Event Display: Progress Note Hospital Authored Date: Patient: ??EUGENIO WHITE ? Age:??58 Years?Sex:??Male?:??1965?? Subjective Code yellow called this afternoon as patient was seen aggressively??moving objects around his room.frequently??yells at staff and yells abusive language??at staff calling them stupid ?? vitals monitored and stable complains of chronic diffuse pain, again mostly in his spine?? Review of Systems negative except??as otherwise stated in HPI and subjective report Objective Measurements?? Height: 183 cm (09/27/23) Weight: 95 kg (09/24/23) Dry Weight: 95 kg (09/24/23) Body Mass Index:??28.37 kg/m2??High (09/24/23) ? Vital Signs?? Temperature: 99.1 DegF (09/27/23 12:02:00) Temperature Route: Oral (09/27/23 12:02:00) Pulse Rate:??101 bpm??High (09/27/23 12:02:00) Respiratory Rate: 18 br/min (09/27/23 12:48:00) Systolic Blood Pressure:??160 mm Hg??High (09/27/23 12:02:00) Diastolic Blood Pressure:??96 mm Hg??High (09/27/23 12:02:00) Blood pressure sites: Arm, left (09/27/23 12:02:00) Mean Arterial Pressure: 117 mm Hg (09/27/23 12:02:00) Pulse Pressure: 64 mm Hg (09/27/23 12:02:00) Oxygen Saturation: 97 % (09/27/23 12:02:00) Mode of Delivery (Oxygen): Room air (09/27/23 12:02:00) Early Warning Score: 1 (09/27/23 14:54:22) ? Pain Scores 1 - 10 Pain Scale Score: 10 (09:00) ?? Intake/Output? 09/23 12:56 09/26 07:00 09/25 07:00 09/24 07:00 09/23 07:00 ?? 09/26 20:58 09/26 20:58 09/26 06:59 09/25 06:59 09/24 06:59 Intake ? 1664 ?236 ?712 ?476 ?240 Output ?0 ?0 ?0 ?0 ?0 Net Total ? 1664 ?236 ?712 ?476 ?240 ? Urine Count ?8 ?2 ?2 ?3 ?1 ? Physical Exam General: No acute distress, standing and yelling HEENT: EOMI, mucous membranes moist, no teeth present. CV: RRR S1 S2 present (faint heart sounds). No murmurs, gallops, rubs appreciated. No JVD. No edema. Respiratory: All mcallister clear to auscultation bilaterally. Dry cough with expiration Abdominal: Soft, tenderness in LUQ with deep palpation. No rebound tenderness. Neuro: A&OX3. Moving upper and lower extremities. No gross neurological deficits Psych: agitated and labile mood _ Inpatient Medications Medications (34) Active SCHEDULED: (15) Aspirin 81 mg EC Tablet (aspirin 81 mg oral delayed release tablet) ??81 mg, By Mouth, Daily Atorvastatin 10 mg Tablet (atorvastatin 10 mg oral tablet) ??10 mg, By Mouth, Daily at bedtime Famotidine 20 mg Tablet (Pepcid 20 mg oral tablet) ??40 mg, By Mouth, 2 times a day Insulin Glargine 100 units/mL Inj (Insulin Glargine Inj) ??30 units 0.3 mL, Subcutaneous Injection,Daily at bedtime Insulin Lispro 100 units/mL Inj (Insulin LISPRO Sliding Scale) ??2-10 units, Subcutaneous Injection, 3 times a day before meals Levothyroxine 25 mcg Tablet (levothyroxine 0.025 mg oral tablet) ??50 mcg, By Mouth, Daily Lidocaine 5% Topical Patch (Lidocaine 5% Patch) ??2 each, Topically, Daily Magnesium Oxide 400 mg Tablet (magnesium oxide 400 mg oral tablet) ??400 mg, By Mouth, Daily Metoprolol 50 mg Tablet (metoprolol 50 mg oral tablet) ??50 mg, By Mouth, 2 times a day NaCl 0.9% Flush 3ml (NaCL 0.9% Flush) ??3 mL, IV Push, Every 8 hours Pantoprazole 40 mg EC Tablet (Protonix 40 mg oral delayed release tablet) ??40 mg, By Mouth, Daily Perphenazine 8 mg Tablet (perphenazine 8 mg oral tablet) ??8 mg, By Mouth, 2 times a day Remove Patch (Remove Lidocaine Patch) ??2 each, Topically, Daily at bedtime Tizanidine 4 mg Tablet (tiZANidine 4 mg oral tablet) ??4 mg, By Mouth, Every 12 hours Vitamin D 1000 IU Tablet (Vitamin D3 1000 intl units oral tablet) ??1,000 International_Units, By Mouth, Daily CONTINUOUS: (0) PRN: (19) Acetaminophen 325 mg Tablet (Acetaminophen Tablet) ??650 mg, By Mouth, Every 4 hours Dextromethorphan-Guaifenesin 20 mg-200 mg/10 mL Liqu UD (Robitussin DM Liquid) ??10 mL, By Mouth, Every 4 hours Dextrose Inj Syringe (Dextrose 50% Inj Syringe (25Gm)) ??12.5 Gm, IV Push Slowly, Every 20 minutes Dextrose Inj Syringe (Dextrose 50% Inj Syringe (25Gm)) ??25 Gm, IV Push Slowly, Every 15 minutes diphenhydrAMINE 25 mg Tablet (Benadryl Tablet) ??50 mg, By Mouth, Every 6 hours Docusate Sodium 100 mg Capsule (Docusate Sodium Capsule) ??100 mg 1 capsule, By Mouth, 2 times a day Glucagon 1 mg Inj (Glucagon Inj) ??1 mg, Intramuscular, Once Glucose 40% Gel (15 Gm) (Glucose Gel) ??15 Gm, By Mouth, Every 20 minutes Glucose 40% Gel (15 Gm) (Glucose Gel) ??30 Gm, By Mouth, Every 20 minutes Haloperidol 5 mg Tablet (haloperidol 5 mg oral tablet) ??5 mg, By Mouth, Every 6 hours HydrOXYzine Pamoate 25mg Capsule (Vistaril Capsule) ??50 mg, By Mouth, Every 6 hours Lorazepam 2 mg Tablet (Ativan 2 mg oral tablet) ??2 mg, By Mouth, Every 6 hours Melatonin 3 mg Tablet (Melatonin Tablet) ??3 mg, By Mouth, Daily at bedtime NaCl 0.9% Flush 3ml (NaCL 0.9% Flush) ??3 mL, IV Push, Every 8 hours OxyCODONE 5 mg IR Tablet (oxyCODONE 5 mg oral tablet) ??2.5 mg, By Mouth, Every 12 hours Polyethylene Glycol 17 Gm Powder (MiraLax Powder) ??17 Gm 1 pack/packet, By Mouth, Daily Senna Tablet ??8.6 mg 1 tablet, By Mouth, 2 times a day Simethicone 80 mg Chewable Tablet (Simethicone Tablet) ??80 mg, Chew, 3 times a day Trazodone 50 mg Tablet (traZODone 50 mg oral tablet) ??50 mg, By Mouth, Daily at bedtime ? Results Recent Labs CHEM GENERAL Glucose, POC 255 mg/dL (High)?? 09/27/2023 12:46 ? Abnormal Labs ?? CHEM GENERAL Glucose, POC?255 mg/dL (High)?09/27/2023 12:46 ?? Note: Critical results are displayed in red. ? Assessment/Plan 58-year-old male with past medical history significant for diabetes, hypertension, hypothyroidism, bipolar disorder, schizophrenia, pancytopenia, myelodysplastic syndrome (refused treatment, on monthly CBC monitoring), presented with generalized body pain, admitted with homicidal ideation, generalized pain,??and pancytopenia. ??Patient's course was complicated by severe agitation for which psychiatry saw him??and cleared him for discharge??with perphenazine 8 mg twice daily. Hematology also sawthis patient for intermediate high risk MDS with increased blast and pancytopenia.?? Patient has denied treatment as well as platelet and RBC transfusions at this time. ?? Homicidal ideation (R45.850) in the setting of Bipolar disorder (F31.9),??Schizophrenia (F20.9) In ED patient reportedly said he wants to shoot someone. ??Patient was severely agitated yesterday. Calm and cooperative this morning and patient is ready for discharge.?? Psychiatry??cleared for discharge. Patient agreeable with plan ?? Plan: ?Outpatient follow-up with PCP ??? Continue home meds as well as new med of perphenazine 8 mg twice daily ?? Pancytopenia (D61.818) in the setting of Myelodysplastic syndrome (D46.9) Diagnosed??earlier in the year??during his??hospitalization Refused treatment??for MDS, gets??monthly CBC checks.?? Had refused transfusion in the past given his personal beliefs He is afebrile, no signs of infection.??On neutropenic precautions Platelet count 11.??No evidence for active bleeding, closely monitor ?? Plan: -Outpatient lab work for continuous monitoring -Hematology consulted and patient has denied all treatment ?? Whole body pain (R52):?? Unclear etiology.?Appears to be chronic and related to MDS Pt states he has arthritis throughout his body, however no formal diagnosis ESR and CRP elevated, CK wnl. ?? Plan: -Continue Tylenol as needed -Continue home tizanidine -Follow-up outpatient with PCP ?? Diabetes mellitus type 2 (E11.9):?? On insulin and ozempic at home ?? Plan: -Continue home diabetes mellitus regimen and follow-up with PCP ?? Hypertension (I10):??Cont metoprolol 50mg BID Hypothyroidism (E03.9):??Continue levothyroxine 50mcg ? Quality Measures: Code status: Full DVT prophylaxis: Pt with thrombocytopenia, Diet: Diabetic diet OMN: Psych and Heme consult ? Jackeline Logan MD, MPH Medicine Pediatrics Resident PGY-3 P. [id number] Patient??and plan discussed with attending physician, Dr. Brayden Mccloud MD, Jay J: PERFORM, MODIFY, MODIFY, MODIFY, MODIFY, MODIFY, MODIFY, MODIFY, MODIFY, MODIFY, MODIFY Event Display: Progress Note Hospital Authored Date: Patient: ??EUGENIO WHITE ? Age:??58 Years?Sex:??Male?:??1965?? Subjective Psychiatry asked to see patient today to re-eval safety for discharge (cleared on 09/[address] Ortiz). ?? On exam, Eugenio is sitting in chair in his hospital room. Requests discharge and reports my back hurts. It hurts all the time. It's hard for me to lie in the bed. Endorses that he might have made comments over the past day involving suicidal themes. Says I have those thoughts just when I'm mad.Everyone knows that. But they left me alone for years and I've never hurt anybody or myself. Endorses distant hx of suicide attempts during childhood/teenage years. I did that one time and no one ever leaves me alone about it. Reports that mood is fine - I'm calm - but I want to go home. Is physically restless during eval, which he says is d/t back pain. He denies current SI/HI. I say thosethings when I'm made but I'm not going to hurt myself. I'm not going to hurt anybody else. ??DeniesAVH, delusional thinking??or nalini paranoia. I just hear people talking outside my room, and when I'm home I hear the traffic. Notes I need to get back home. I bet my apartment is a mess. I have cleaning to do. Endorses having outpatient providers,??as is aware that [facility] prescriber has changed. U nsure when he will meet new provider. Says that mood is fine and denies excessive anxiety aside from??desire to??go home. I don't need no inpatient psych. Says that he's been sleeping fairly??well in hospital despite pain and distractions. Appetite is good but it's hard to eat because of my delphine th. ??Denies any recent changes in weight. Says that he does his own shopping. ?? Reports that he is ok with continuing home medications. When I don't take the Trilafon, I start talking to myself. Reports good effect from this medication. ?? We discuss discharge planning. He is begrudgingly accepting to wait another day until [facility] can arrange transportation. ?? Review of Systems Pertinent positives and negatives as above. Otherwise, ROS negative. Objective Vitals & Measurements RR:??18?? Mental Status Appearance: Hospital gown, Eye contact: Within normal limits Attitude: Cooperative Motor Activity: activated; absent of tics, tremors, psychomotor agitation, psychomotor slowing Mood: I'm fine; does endorse frustration about back pain and discharge delay Affect: congruent to mood; constricted Speech: Spontaneous,clear Perception: no noted delusions, denies AVH. Orientation: Intact to person, place, general situation Memory: Grossly intact Thought Process: more linear Thought Content: no clear paranoia Medication Adherence: Taking medications Reliability: Limited historian Insight: fair. Judgment: fair. Impulse control: fair Suicidality/Self-destructive Behavior: denies any passive or??active SI Homicidality/Violence: None currently Lab Results Event Name?? Event Result?? Normal Range?? Date/Time?? Glucose, POC 245 mg/dL??High 70 mg/dL - 99 mg/dL 09/27/23 08:44:00 Glucose, POC 258 mg/dL??High 70 mg/dL - 99 mg/dL 09/26/23 21:04:00 Glucose, POC 132 mg/dL??High 70 mg/dL - 99 mg/dL 09/26/23 17:19:00 Glucose, POC 195 mg/dL??High 70 mg/dL - 99 mg/dL 09/26/23 12:03:00 ? Inpatient Medications Medications (34) Active SCHEDULED: (15) Aspirin 81 mg EC Tablet (aspirin 81 mg oral delayed release tablet) ??81 mg, By Mouth, Daily Atorvastatin 10 mg Tablet (atorvastatin 10 mg oral tablet) ??10 mg, By Mouth, Daily at bedtime Famotidine 20 mg Tablet (Pepcid 20 mg oral tablet) ??40 mg, By Mouth, 2 times a day Insulin Glargine 100 units/mL Inj (Insulin Glargine Inj) ??30 units 0.3 mL, Subcutaneous Injection,Daily at bedtime Insulin Lispro 100 units/mL Inj (Insulin LISPRO Sliding Scale) ??2-10 units, Subcutaneous Injection, 3 times a day before meals Levothyroxine 25 mcg Tablet (levothyroxine 0.025 mg oral tablet) ??50 mcg, By Mouth, Daily Lidocaine 5% Topical Patch (Lidocaine 5% Patch) ??2 each, Topically, Daily Magnesium Oxide 400 mg Tablet (magnesium oxide 400 mg oral tablet) ??400 mg, By Mouth, Daily Metoprolol 50 mg Tablet (metoprolol 50 mg oral tablet) ??50 mg, By Mouth, 2 times a day NaCl 0.9% Flush 3ml (NaCL 0.9% Flush) ??3 mL, IV Push, Every 8 hours Pantoprazole 40 mg EC Tablet (Protonix 40 mg oral delayed release tablet) ??40 mg, By Mouth, Daily Perphenazine 8 mg Tablet (perphenazine 8 mg oral tablet) ??8 mg, By Mouth, 2 times a day Remove Patch (Remove Lidocaine Patch) ??2 each, Topically, Daily at bedtime Tizanidine 4 mg Tablet (tiZANidine 4 mg oral tablet) ??4 mg, By Mouth, Every 12 hours Vitamin D 1000 IU Tablet (Vitamin D3 1000 intl units oral tablet) ??1,000 International_Units, By Mouth, Daily CONTINUOUS: (0) PRN: (19) Acetaminophen 325 mg Tablet (Acetaminophen Tablet) ??650 mg, By Mouth, Every 4 hours Dextromethorphan-Guaifenesin 20 mg-200 mg/10 mL Liqu UD (Robitussin DM Liquid) ??10 mL, By Mouth, Every 4 hours Dextrose Inj Syringe (Dextrose 50% Inj Syringe (25Gm)) ??12.5 Gm, IV Push Slowly, Every 20 minutes Dextrose Inj Syringe (Dextrose 50% Inj Syringe (25Gm)) ??25 Gm, IV Push Slowly, Every 15 minutes diphenhydrAMINE 25 mg Tablet (Benadryl Tablet) ??50 mg, By Mouth, Every 6 hours Docusate Sodium 100 mg Capsule (Docusate Sodium Capsule) ??100 mg 1 capsule, By Mouth, 2 times a day Glucagon 1 mg Inj (Glucagon Inj) ??1 mg, Intramuscular, Once Glucose 40% Gel (15 Gm) (Glucose Gel) ??15 Gm, By Mouth, Every 20 minutes Glucose 40% Gel (15 Gm) (Glucose Gel) ??30 Gm, By Mouth, Every 20 minutes Haloperidol 5 mg Tablet (haloperidol 5 mg oral tablet) ??5 mg, By Mouth, Every 6 hours HydrOXYzine Pamoate 25mg Capsule (Vistaril Capsule) ??50 mg, By Mouth, Every 6 hours Lorazepam 2 mg Tablet (Ativan 2 mg oral tablet) ??2 mg, By Mouth, Every 6 hours Melatonin 3 mg Tablet (Melatonin Tablet) ??3 mg, By Mouth, Daily at bedtime NaCl 0.9% Flush 3ml (NaCL 0.9% Flush) ??3 mL, IV Push, Every 8 hours OxyCODONE 5 mg IR Tablet (oxyCODONE 5 mg oral tablet) ??2.5 mg, By Mouth, Every 12 hours Polyethylene Glycol 17 Gm Powder (MiraLax Powder) ??17 Gm 1 pack/packet, By Mouth, Daily Senna Tablet ??8.6 mg 1 tablet, By Mouth, 2 times a day Simethicone 80 mg Chewable Tablet (Simethicone Tablet) ??80 mg, Chew, 3 times a day Trazodone 50 mg Tablet (traZODone 50 mg oral tablet) ??50 mg, By Mouth, Daily at bedtime [place] Suicide Score [place] Suicide Assessment Ca (09/24/23) [place] Suicide Score Last Asked Ca (09/26/23) Suicidal Intent No Plan Past Month-CSSRS: Yes (09/24/23) Suicidal Thoughts Method Past Mon-CSSRS: Yes (09/24/23) Suicidal Thoughts Past Month - CSSRS: Yes (09/24/23) Suicidal Thoughts Since Last Asked-CSSRS: No (09/26/23) Suicide Behavior Lifetime - CSSRS: Yes (09/24/23) Suicide Behavior Past 3 Months - CSSRS: Yes (09/24/23) Suicide Behavior Since Last Asked-CSSRS: No (09/26/23) Suicide Intent w/Plan Past Month - CSSRS: No (09/24/23) Wish to be Past Month - CSSRS: Yes (09/24/23) Assessment/Plan Eugenio White is a 58-year-old gentleman with past psychiatric history significant for schizoaffective disorder, bipolar type, suicidality, and several prior inpatient psychiatric hospitalizations for treatment of the same as well as medical history notable for hypertension, hypothyroidism, insulin-dependent diabetes mellitus, obesity, pancytopenia, splenomegaly, and myelodysplastic syndrome, whoinitially presented to [facility] on 09[facility]24[facility] for evaluation of chest and full body pain as well as endorsing auditory hallucinations and homicidal ideation. ?? Pt this afternoon presents frustrated about discharge delay, and endorsing impulsive/reactive SI statements made when??frustrated. Appears this is a baseline issue for him. Denies??any current activeor passive SI/HI. Denies AVH and there are not clear signs of hallucinations or delusional content. Endorses desire to remain compliant with medications and shows future orientation, insight as to benefit of medications in preventing psychosis. He does not appear to represent acute risk of harm to himself or others. ?? Given current presentation, Pt is psychiatrically cleared for dc home and back??to outpatient services. Continue current psychotropics. ?? Diagnoses: Schizoaffective disorder, bipolar type Agitation Nonadherence to medications Pancytopenia ?? Recommendations: -Psychiatrically cleared for dc -Does not need 1:1 -Continue Trilafon 8 mg PO twice daily ?? Consult note * Rhina Lovell MD: PERFORM Event Display: Consultation Note Authored Date: [id number] Patient: ??EUGENIO WHITE ? Age:??58 Years?Sex:??Male?:??1965?? Reason for Consultation MDS History of Present Illness This is a 57-year-old male with schizophrenia, bipolar disorder, diabetes, hypertension, recently diagnosed intermediate???high risk MDS with increased blasts who declined starting treatment when seen by hematology in June 2023. ?? He presented to the ER with abdominal pain, and has not been feeling well the last several weeks.??He had mentioned to the ER providers that if he had a gun he would shoot somebody.?? He was admitted for psychiatric evaluation. ?? Hematology consulted??regarding??the pancytopenia in the setting of MDS??prior to transferring to??acute psychiatry unit. Review of Systems Unable to obtain Physical Exam Vitals & Measurements T:??97.7?F?? TMIN:??97.7?F?? TMAX:??100?F?? HR:??78??(Peripheral)?? RR:??17?? BP:??100/55?? SpO2:??100%?? Gen: No acute distress HEENT: sclera??anicteric, EOMI Neuro: AAOx3 Resp: no respiratory distress?? CV: RRR Abd:??BS present, soft, non-distended Skin: no rash or skin lesions Assessment/Plan This is a 57-year-old male with schizophrenia, bipolar disorder,??intermediate to high risk myelodysplastic syndrome with increased blast. He is currently being evaluated by psychiatry for homicidal ideation. Hematology consulted??regarding pancytopenia in the setting of MDS. ?? #??Intermediate???high risk MDS with increased blasts #Pancytopenia -Patient had??previously declined??chemotherapy for MDS.?? -Given the pancytopenia,??we recommend managing with supportive??transfusions until we??reevaluate him for??chemotherapy once his psychiatric condition is stabilized.. -Patient??declines??platelet and RBC transfusions??on??our evaluation ? Discussed with Dr. Paulino. Problem List/Past Medical History Ongoing Bipolar Diabetes mellitus type 2 Hypertension Hypothyroidism Obesity Pancytopenia Pulmonary nodule, right Schizophrenia Medications Inpatient Acetaminophen Tablet, 650 mg, By Mouth, Every 4 hours, PRN aspirin 81 mg oral delayed release tablet, 81 mg, By Mouth, Daily Ativan 2 mg oral tablet, 2 mg, By Mouth, Every 6 hours, PRN atorvastatin 10 mg oral tablet, 10 mg, By Mouth, Daily at bedtime Benadryl Tablet, 50 mg, By Mouth, Every 6 hours, PRN Dextrose 50% Inj Syringe (25Gm), 12.5 Gm, IV Push Slowly, Every 20 minutes, PRN Dextrose 50% Inj Syringe (25Gm), 25 Gm, IV Push Slowly, Every 15 minutes, PRN Docusate Sodium Capsule, 100 mg= 1 capsule, By Mouth, 2 times a day, PRN Glucagon Inj, 1 mg, Intramuscular, Once, PRN Glucose Gel, 15 Gm, By Mouth, Every 20 minutes, PRN Glucose Gel, 30 Gm, By Mouth, Every 20 minutes, PRN haloperidol 5 mg oral tablet, 5 mg, By Mouth, Every 6 hours, PRN Insulin Glargine Inj, 30 units= 0.3 mL, Subcutaneous Injection, Daily at bedtime Insulin LISPRO Sliding Scale, 2-10 units, Subcutaneous Injection, 3 times a day before meals levothyroxine 0.025 mg oral tablet, 50 mcg, By Mouth, Daily Lidocaine 5% Patch, 2 each, Topically, Daily magnesium oxide 400 mg oral tablet, 400 mg, By Mouth, Daily Melatonin Tablet, 3 mg, By Mouth, Daily at bedtime, PRN metoprolol 50 mg oral tablet, 50 mg, By Mouth, 2 times a day MiraLax Powder, 17 Gm= 1 pack/packet, By Mouth, Daily, PRN NaCL 0.9% Flush, 3 mL, IV Push, Every 8 hours NaCL 0.9% Flush, 3 mL, IV Push, Every 8 hours, PRN oxyCODONE 5 mg oral tablet, 2.5 mg, By Mouth, Every 12 hours, PRN Pepcid 20 mg oral tablet, 40 mg, By Mouth, 2 times a day perphenazine 8 mg oral tablet, 8 mg, By Mouth, 2 times a day Protonix 40 mg oral delayed release tablet, 40 mg, By Mouth, Daily Remove Lidocaine Patch, 2 each, Topically, Daily at bedtime Robitussin DM Liquid, 10 mL, By Mouth, Every 4 hours, PRN Senna Tablet, 8.6 mg= 1 tablet, By Mouth, 2 times a day, PRN Simethicone Tablet, 80 mg, Chew, 3 times a day, PRN tiZANidine 4 mg oral tablet, 4 mg, By Mouth, Every 12 hours traZODone 50 mg oral tablet, 50 mg, By Mouth, Daily at bedtime, PRN Vistaril Capsule, 50 mg, By Mouth, Every 6 hours, PRN Vitamin D3 1000 intl units oral tablet, 1000 International_Units, By Mouth, Daily Home Alcohol Pads, See Instructions, 11 refills Alcohol Pads, See Instructions, 5 refills Alcohol Wipes, See Instructions, 1 refills Alcohol Wipes, See Instructions, 11 refills aspirin 81 mg oral delayed release tablet, 81 mg= 1 tablet, By Mouth, Daily atorvastatin 10 mg oral tablet, 10 mg= 1 tablet, By Mouth, Daily at bedtime Colace sodium 100 mg oral capsule, 200 mg= 2 capsule, By Mouth, 2 times a day COMFRT TOUCH PAD ALC PREP, See Instructions Freestyle alo 2 14-day sensors, See Instructions, 11 refills Freestyle alo 2 reader, See Instructions Freestyle Lite Lancets, See Instructions, 11 refills Freestyle Lite Monitor, See Instructions Freestyle Lite Test Strips, See Instructions, 3 refills Insulin Syringe, BD Ultra-Fine 1 cc 31 G x 8 mm (5/16in), See Instructions, 5 refills Insulin Syringe, BD Ultra-Fine 1 cc 31 G x 8 mm (5/16in), See Instructions, 3 refills Lantus Solostar Pen 100 units/mL subcutaneous solution, 48 units, Subcutaneous Injection, Daily levothyroxine 0.05 mg oral tablet, 50 mcg= 1 tablet, By Mouth, Daily magnesium oxide 400 mg oral tablet, 400 mg= 1 tablet, By Mouth, Daily metoprolol 50 mg oral tablet, 50 mg= 1 tablet, By Mouth, 2 times a day One Touch UltraSoft Lancets, See Instructions Ozempic 2 mg/3 mL (0.25 mg or 0.5 mg dose) subcutaneous solution, 0.5 mg, Subcutaneous Injection, Every Thursday Pen [place], 31 G x 8 mm BD Ultra Fine III, See Instructions, 11 refills Pepcid 20 mg oral tablet, 40 mg= 2 tablet, By Mouth, 2 times a day PLASTIC URINAL, See Instructions Protonix 40 mg oral delayed release tablet, 40 mg= 1 tablet, By Mouth, Daily Tab-A-Devon oral tablet, 1 tablet, By Mouth, Daily tiZANidine 4 mg oral tablet, 4 mg= 1 tablet, By Mouth, Daily at bedtime Tylenol Extra Strength 500 mg oral tablet, 500 mg= 1 tablet, By Mouth, Every 6 hours, PRN Vitamin D3 1000 intl units oral capsule, 25 mcg= 1 capsule, By Mouth, Daily Allergies Clozaril metformin??(DIARRHEA) Immunizations Vaccine Date Status pneumococcal 23-valent vaccine - Not Given Comments : Patient Refused influenza virus vaccine, inactivated - Not Given Comments : Patient Refused * Lora GONSALVES(Hem/Onc), Ant Guan: PERFORM Event Display: Consultation Note Authored Date: Pt seen. I agree with the above plan and assessment. Offered RBC and plt transfusions, but pt refused. To psych Dr. Paulino * Tequila Ortiz MD: PERFORM Event Display: Consultation Note Authored Date: Patient: ??EUGENIO WHITE ? Age:??58 Years?Sex:??Male?:??1965?? Chief Complaint/Reason for Consultation If I had a gun, I would honestly shoot somebody. History of Present Illness ?? Eugenio White is a 58-year-old gentleman with past psychiatric history significant for schizoaffective disorder, bipolar type, suicidality, and several prior inpatient psychiatric hospitalizations for treatment of the same as well as medical history notable for hypertension, hypothyroidism, insulin-dependent diabetes mellitus, obesity, pancytopenia, splenomegaly, and myelodysplastic syndrome, whoinitially presented to [facility] on 09/24/2023 for evaluation of chest and full body pain as well as endorsing auditory hallucinations and homicidal ideation. ?? Per records, Pt seen in the ED by psychiatry team and noted to be found to be alert and oriented to person, place, and general situation.?? He states that he came into the hospital because he was experiencing abdominal pain, but he is unable to describe how long this has been going on for.?? He intermittently shouts in pain, clutching at his left abdomen, but able to participate somewhat with the encounter. ??He reports that he has not been feeling well for??at least the last several weeks, describing??increased paranoia??and engagement in??self dialoguing. ??He states that he did not sleep last night, instead??shouting??at his upstairs neighbor, which she recognizes he probably should notbe doing.?? He endorses ongoing auditory hallucinations??which have??been chronic at baseline, but perhaps worsening??over the last several??days to weeks.?? He denies any current visual hallucinations, thought insertion, withdrawal, or broadcasting.?? He admits to some low and depressive mood,??low energy, but??denies any problems with appetite??or attention/concentration. ??He denies any current suicidal ideation, but does admit that he has been experiencing more passive suicidality??without any intent or plan in the last couple of days.?? He reiterated??a statement that he had made earlierto ED providers, to the effect of if I had a gun,??I would??shoot somebody. He denies that there is anyone in particular that??he would try to hurt or kill.??Curiously, he denies??having??any access to firearms or lethal weapons, but recognizes that he should not be feeling this way.?? He believes that he has been taking his medications, but cannot be sure??of this. . ?? Pt seen in his room this afternoon and does not appear in any acute distress. [facility] and no one was helping him. Reports he has been to a few hospitals in the last few days. Pt reports today he feels ok, reports mood as fine . Reports low moodat times due to pain. Denies SI and HI, reports when in pain he makes comments out of frustration. R epos feels safe in the hospital. Denies AVH, denies chris. Reports he normally does not like taking medications. ? Past Psychiatric History:?Eugenio carries past psychiatric diagnoses of schizoaffective disorder, bipolar type.?? He has a history of multiple prior inpatient psychiatric hospitalizations for treatment of the same.?? He admits to a history of suicidality and prior suicide attempts, although last occurring when he was a teenager.?? He shares that his most recent inpatient psychiatric hospitalization occurred approximately 1 year prior. [facility], [facility], [facility], [facility], [place], [facility], [facility], [facility].?? He denies any history of agitation or aggression.?? He did not repo rt any history of head injuries, concussions, traumatic brain injuries, or seizures.?? No history of ECT treatments.?? His most recent psychotropic medication regimen appears to include Trilafon 12 mg 3 times daily, trazodone 200 mg daily at bedtime, and Klonopin 1.5 mg twice daily as needed for anx iety.?? Additional psychotropic medication history includes, but not limited to lithium, Clozaril, Invega, Risperdal, Cogentin, Depakote, Seroquel, Wellbutrin, and Geodon.?? There is a history of DMHinvolvement and prior active community Leach order.?? It is not clear if there is any current legal status with this.?? He has outpatient psychiatric providers through [facility].?? Last provider was STEVEN Mendosa, but he has not yet met his new provider at [facility]. Review of Systems 10 point review of systems negative except Pertinent positives as above noted.?? Objective Vital Signs?? Temperature: 97.9 DegF (09/25/23 12:12:00) Temperature Route: Oral (09/25/23 12:12:00) Pulse Rate: 75 bpm (09/25/23 12:12:00) Respiratory Rate: 17 br/min (09/25/23 12:12:00) Systolic Blood Pressure: 100 mm Hg (09/25/23 12:12:00) Diastolic Blood Pressure: 58 mm Hg (09/25/23 12:12:00) Blood pressure sites: Arm, left (09/25/23 12:12:00) Mean Arterial Pressure: 72 mm Hg (09/25/23 12:12:00) Pulse Pressure: 42 mm Hg (09/25/23 12:12:00) Oxygen Saturation: 99 % (09/25/23 12:12:00) Mode of Delivery (Oxygen): Room air (09/25/23 12:12:00) Early Warning Score: 9 (09/25/23 12:38:05) ? Physical Exam Mental Status Exam Appearance: Hospital gown, Eye contact: Within normal limits Attitude: Cooperative Motor Activity: Calm; absent of tics, tremors, psychomotor agitation, psychomotor slowing Mood: I have?? pain Affect: congruent to mood. Speech: Spontaneous,clear Perception: no noted delusions, denies AVH. Orientation: Intact to person, place, general situation Memory: Grossly intact Thought Process: more linear Thought Content: no noted paranoia Medication Adherence: Taking medications Reliability: Limited historian Insight: fair. Judgment: fair. Impulse control: fair Suicidality/Self-destructive Behavior: Recent passive suicidality, but no current??active SI/intent/plan Homicidality/Violence: None currently Assessment/Plan Eugenio White is a 58-year-old gentleman with past psychiatric history significant for schizoaffective disorder, bipolar type, suicidality, and several prior inpatient psychiatric hospitalizations for treatment of the same as well as medical history notable for hypertension, hypothyroidism, insulin-dependent diabetes mellitus, obesity, pancytopenia, splenomegaly, and myelodysplastic syndrome, whoinitially presented to [facility] on 09[facility]24[facility] for evaluation of chest and full body pain as well as endorsing auditory hallucinations and homicidal ideation. ?? Pt this afternoon presents calm, cooperative and without SI/HI, and no over signs of hallucinationsor delusional content. He has been medication compliant in the hospital and now medically cleared. ?? Given current presentation, Pt is psychiatrically cleared for dc home and back??to outpatient services. Continue current psychotropics. ? Diagnoses: Schizoaffective disorder, bipolar type Suicidal ideation Homicidal ideation Auditory hallucinations Paranoid delusions Agitation Nonadherence to medications Pancytopenia ? Recommendations: -Psychiatrically cleared for dc -Does not need 1:1 -Continue Trilafon 8 mg PO twice daily ?? Histories Allergies Allergies ?(Active and Proposed Allergies Only) Clozaril? (Severity: Unknown severity, Onset: Unknown) metformin? (Severity: Unknown severity, Onset: Unknown) ?Reactions: DIARRHEA ?Comments: Marilee, Leach Runner, states the patient has been taking Metformin with noside effects. ??We will ?cancel this as an allergy in his profile to lessen confusion in the future. ? Past Medical History/Problem List Active Problems(8) Bipolar Diabetes mellitus type 2 Hypertension Hypothyroidism Obesity Pancytopenia Pulmonary nodule, right Schizophrenia ? Substance Use Eugenio denies any current recreational and/or illicit substance misuse. There is a history of tobacco dependence, smoking 1 pack/day. ?? Social History Eugenio is currently , residing in an apartment in [place], [place] with [facility] assistance.?? He has a history of being a resident of a assisted.?? He identified his VNA, Liu, as his primary support.?? 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 He denied any access to firearms or lethal weapons.?? Trauma history is not reviewed during this ED evaluation.? Family History:?? Patient did not report any known psychiatric illness or substance use disorders.??No reported history of suicidality or attempts. ? Medications Home Medications Acetaminophen (Tylenol Extra Strength 500 mg oral tablet)?1?tab(s)?500?Milligram?By Mouth?Every 6 hours?as needed?Pain , Mild Aspirin (aspirin 81 mg oral delayed release tablet)?81?Milligram?1?tablet?By Mouth?Daily Atorvastatin (atorvastatin 10 mg oral tablet)?1?tab(s)?10?Milligram?By Mouth?Daily at bedtime Cholecalciferol (Vitamin D3 1000 intl units oral capsule)?1?capsule?25?Microgram?By Mouth?Daily Docusate (Colace sodium 100 mg oral capsule)?200?Milligram?2?capsule?By Mouth?2 times a day Durable Medical Equipment (Alcohol Wipes)?See Instructions?use 3x/day [...] 90 day supply Durable Medical Equipment (Pen [place], 31 G x 8 mm BD Ultra [...] Instructions?test blood sugar 4x day, DX E11.9 Durable Medical Equipment (Alcohol Pads)?See Instructions?for 30?Days?use as directed to clean skin 5x a day Famotidine (Pepcid 20 mg oral tablet)?2?tab(s)?40?Milligram?By Mouth?2 times a day Insulin Glargine (Lantus Solostar Pen 100 units/mL subcutaneous solution)?48?unit(s)?Subcutaneous Injection?Daily Levothyroxine (levothyroxine 0.05 mg oral tablet)?1?tab(s)?50?Microgram?By Mouth?Daily Magnesium Oxide (magnesium oxide 400 mg oral tablet)?1?tab(s)?400?Milligram?By Mouth?Daily Metoprolol (metoprolol 50 mg oral tablet)?50?Milligram?1?tablet?By Mouth?2 times a day Miscellaneous Rx (PLASTIC ??URINAL)?See Instructions?USE DIRECTED AT HOME Miscellaneous Rx (Salus [employer]style alo 2 reader)?See Instructions?Use to check BG up to 5 times/day Miscellaneous Rx (Freestyle alo 2 14-day sensors)?See Instructions?Use to check BG up to 5 times/day, change every 14 days, wear on the back of the upper arm Miscellaneous Rx (COMFRT TOUCH PAD ALC PREP)?See Instructions?USE DIRECTED TO CLEAN AREA 5TIMES A DAY Multivitamin (Tab-A-Devon oral tablet)?1?tab(s)?By Mouth?Daily Pantoprazole (Protonix 40 mg oral delayed release tablet)?1?tab(s)?40?Milligram?By Mouth?Daily semaglutide (Ozempic 2 mg/3 mL (0.25 mg or 0.5 mg dose) subcutaneous solution)?0.5?Milligram?Subcutaneous Injection?Every Thursday Tizanidine (tiZANidine 4 mg oral tablet)?4?Milligram?1?tablet?By Mouth?Daily at bedtime ? Inpatient Medications Medications (33) Active SCHEDULED: (14) Aspirin 81 mg EC Tablet (aspirin 81 mg oral delayed release tablet) ??81 mg, By Mouth, Daily Atorvastatin 10 mg Tablet (atorvastatin 10 mg oral tablet) ??10 mg, By Mouth, Daily at bedtime Famotidine 20 mg Tablet (Pepcid 20 mg oral tablet) ??40 mg, By Mouth, 2 times a day Insulin Glargine 100 units/mL Inj (Insulin Glargine Inj) ??30 units 0.3 mL, Subcutaneous Injection,Daily at bedtime Levothyroxine 25 mcg Tablet (levothyroxine 0.025 mg oral tablet) ??50 mcg, By Mouth, Daily Lidocaine 5% Topical Patch (Lidocaine 5% Patch) ??2 each, Topically, Daily Magnesium Oxide 400 mg Tablet (magnesium oxide 400 mg oral tablet) ??400 mg, By Mouth, Daily Metoprolol 50 mg Tablet (metoprolol 50 mg oral tablet) ??50 mg, By Mouth, 2 times a day NaCl 0.9% Flush 3ml (NaCL 0.9% Flush) ??3 mL, IV Push, Every 8 hours Pantoprazole 40 mg EC Tablet (Protonix 40 mg oral delayed release tablet) ??40 mg, By Mouth, Daily Perphenazine 8 mg Tablet (perphenazine 8 mg oral tablet) ??8 mg, By Mouth, 2 times a day Remove Patch (Remove Lidocaine Patch) ??2 each, Topically, Daily at bedtime Tizanidine 4 mg Tablet (tiZANidine 4 mg oral tablet) ??4 mg, By Mouth, Every 12 hours Vitamin D 1000 IU Tablet (Vitamin D3 1000 intl units oral tablet) ??1,000 International_Units, By Mouth, Daily CONTINUOUS: (0) PRN: (19) Acetaminophen 325 mg Tablet (Acetaminophen Tablet) ??650 mg, By Mouth, Every 4 hours Dextromethorphan-Guaifenesin 20 mg-200 mg/10 mL Liqu UD (Robitussin DM Liquid) ??10 mL, By Mouth, Every 4 hours Dextrose Inj Syringe (Dextrose 50% Inj Syringe (25Gm)) ??12.5 Gm, IV Push Slowly, Every 20 minutes Dextrose Inj Syringe (Dextrose 50% Inj Syringe (25Gm)) ??25 Gm, IV Push Slowly, Every 15 minutes diphenhydrAMINE 25 mg Tablet (Benadryl Tablet) ??50 mg, By Mouth, Every 6 hours Docusate Sodium 100 mg Capsule (Docusate Sodium Capsule) ??100 mg 1 capsule, By Mouth, 2 times a day Glucagon 1 mg Inj (Glucagon Inj) ??1 mg, Intramuscular, Once Glucose 40% Gel (15 Gm) (Glucose Gel) ??15 Gm, By Mouth, Every 20 minutes Glucose 40% Gel (15 Gm) (Glucose Gel) ??30 Gm, By Mouth, Every 20 minutes Haloperidol 5 mg Tablet (haloperidol 5 mg oral tablet) ??5 mg, By Mouth, Every 6 hours HydrOXYzine Pamoate 25mg Capsule (Vistaril Capsule) ??50 mg, By Mouth, Every 6 hours Lorazepam 2 mg Tablet (Ativan 2 mg oral tablet) ??2 mg, By Mouth, Every 6 hours Melatonin 3 mg Tablet (Melatonin Tablet) ??3 mg, By Mouth, Daily at bedtime NaCl 0.9% Flush 3ml (NaCL 0.9% Flush) ??3 mL, IV Push, Every 8 hours OxyCODONE 5 mg IR Tablet (oxyCODONE 5 mg oral tablet) ??2.5 mg, By Mouth, Every 12 hours Polyethylene Glycol 17 Gm Powder (MiraLax Powder) ??17 Gm 1 pack/packet, By Mouth, Daily Senna Tablet ??8.6 mg 1 tablet, By Mouth, 2 times a day Simethicone 80 mg Chewable Tablet (Simethicone Tablet) ??80 mg, Chew, 3 times a day Trazodone 50 mg Tablet (traZODone 50 mg oral tablet) ??50 mg, By Mouth, Daily at bedtime ? Results ? Blood Glucose Trend Glucose, POC:??184 mg/dL??High (09/25/23 12:36:00) Glucose, POC:??151 mg/dL??High (09/25/23 08:45:00) ? CBC, CBC w/Diff?? CBC?? Differential?? WBC:??1.8 k/mm3??Critical (:39) Abs. Neut:??0 k/mm3??Low (:39) RBC:??2.68 m/mm3??Low (:39) Abs. Lymph: 1.8 k/mm3 (:39) Hct:??23.5 %??Low (:39) Abs. [place]:??0 k/mm3??Low (:39) RDW-SD:??70.3 femtoliters??High (06:39) Abs. Eo: 0 k/mm3 (06:39) Nucleated RBC (Automated): 1.1 #/100 WBC'S (06:39) Abs. Baso: 0 k/mm3 (06:39) Abs. NRBC: 0 k/mm3 (06:39) Neut %:??0.9 %??Low (06:39) ?? Lymph %:??91.1 %??High (06:39) ?? [place] %:??1.8 %??Low (06:39) ?? Eos %: 0 % (06:39) ?? Baso %: 0.9 % (06:39) ?? Atypical Lymph %:??5.3 %??High (06:39) ?? RBC Morphology: MODERATE (06:39) ?? Platelet Estimate: DECREASED (06:39) ? LFT?? No qualifying data available. ?? Urinalysis Est Creatinine Clearance: 95.02 mL/min (07:42) ? * Sherlyn Rosa DO: PERFORM, MODIFY, MODIFY, MODIFY, MODIFY, MODIFY, MODIFY Event Display: Consultation Note Authored Date: Patient: ??EUGENIO WHITE ? Age:??58 Years?Sex:??Male?:??1965?? Chief Complaint If I had a gun, I would honestly shoot somebody. Reason for Consultation Reason for consult:?Medication management, disposition ?? Referring Physician:?Dr. Lou Soliman ?? Source of information:??Per patient,??[facility] records ?? Identifying information:?Eugenio White is a 58-year-old gentleman with past psychiatric history significant for schizoaffective disorder, bipolar type, suicidality, and several prior inpatient psychiatric hospitalizations for treatment of the same as well as medical history notable for hypertension, hypothyroidism, insulin-dependent diabetes mellitus, obesity, pancytopenia, splenomegaly, and myelodysplastic syndrome, who initially presented to [facility] on 09/24/2023 for evaluation of chest and full body pain as well as endorsing auditory hallucinations and homicidal ideation. ?? History of Present Illness Patient is known to the [facility] psychiatry service from prior consultations and/or inpatient hospitalizations. Per ED??documentation,?? The patient is a 58-year-old male with history of myelodysplastic syndrome, schizophrenia, bipolar disorder, diabetes, hypothyroid, hypertension presenting to theED due to full body pain. ??Patient states he is experiencing this for months denies any acute worsening. ??Patient does endorse central chest pain, nonradiating, nonexertional, no associated shortness of breath, diaphoresis or nausea.??Patient reports that he has been living at facility, they havenot been giving him his correct psychiatric medications and he has been hearing voices, he reports that if I had a gun I would honestly shoot somebody . Denies SI.?Patient diagnosed with myelodysplastic syndrome in June 2023, labs from 06/19/2023 revealed a white count of 0.8, hemoglobin of 10.2, hematocrit 31.3, platelets of 32. ??Patient was seen by heme-onc who offered treatment, however patient declined, however they were unable per their notes to get in touch with patient's caregiver or brother. ?? Initial vital signs are notable for hypertension with blood pressure 165/76, but otherwise hemodynamically stable.?? Labs demonstrated pancytopenia, leukopenia with WBC 0.7, normocytic anemia with hemoglobin 7.6, hematocrit 22.9, platelet count 11, INR 1.2, PT 13, APTT 27.8, bicarbonate level 21, but no additional electrolyte derangements or renal impairment.?? TSH with reflex T4 added on, and currently pending.?? LFTs were within normal limits.?? Chest x-ray ordered and currently pending.?? There is no diagnostic head imaging available for review from this ED presentation.?? The patient was subsequently??medically admitted??for??further workup and evaluation of pancytopenia. ??The emergency psychiatry service was consulted for??evaluation of??perceptual disturbances and homicidality,??psychotropic medication management and assistance with disposition. ?? Eugenio was seen earlier this afternoon, found to be alert and oriented to person, place, and generalsituation.?? He states that he came into the hospital because he was experiencing abdominal pain, but he is unable to describe how long this has been going on for.?? He intermittently shouts in pain,clutching at his left abdomen, but able to participate somewhat with the encounter. ??He reports that he has not been feeling well for??at least the last several weeks, describing??increased paranoia??and engagement in??self dialoguing. ??He states that he did not sleep last night, instead??shouting??at his upstairs neighbor, which she recognizes he probably should not be doing.?? He endorses ongoing auditory hallucinations??which have??been chronic at baseline, but perhaps worsening??over the last several??days to weeks.?? He denies any current visual hallucinations, thought insertion, withdrawal, or broadcasting.?? He admits to some low and depressive mood,??low energy, but??denies any problems with appetite??or attention/concentration. ??He denies any current suicidal ideation, but does admit that he has been experiencing more passive suicidality??without any intent or plan in the last couple of days.?? He reiterated??a statement that he had made earlier to ED providers, to the effect of if I had a gun,??I would??shoot somebody. He denies that there is anyone in particular that??he would try to hurt or kill.??Curiously, he denies??having??any access to firearms or lethal weapons, but recognizes that he should not be feeling this way.?? He believes that he has been taking his medications, but cannot be sure??of this.?? He recognizes the name Trilafon??and perphenazine,??but is not sure if his visiting nurses are providing this to him at home.?He feels that he was doing much better when he was taking this medication and advocating to resume it.?? He is help seeking, advocating for??assistance with his current mental health??that he feels to be in shambles and advocating for??potential inpatient psychiatric hospitalization??for safety and stabilization.?? He otherwise did not report any additional symptoms concerning for anxiety, depression, psychosis, chris, or PTSD. Patient is a limited historian. ??As such, much of the following??history is ascertained from both patient interview and??extensive chart review. ? Past Psychiatric History:?Eugenio carries past psychiatric diagnoses of schizoaffective disorder, bipolar type.?? He has a history of multiple prior inpatient psychiatric hospitalizations for treatment of the same.?? He admits to a history of suicidality and prior suicide attempts, although last occurring when he was a teenager.?? He shares that his most recent inpatient psychiatric hospitalization occurred approximately 1 year prior. [facility], [facility], and [facility].?? He denies any history of agitation or aggression.?? He did not reportany history of head injuries, concussions, traumatic brain injuries, or seizures.?? No history of ECT treatments.?? His most recent psychotropic medication regimen appears to include Trilafon 12 mg 3times daily, trazodone 200 mg daily at bedtime, and Klonopin 1.5 mg twice daily as needed for anxiety.?? Additional psychotropic medication history includes, but not limited to lithium, Clozaril, Invega, Risperdal, Cogentin, Depakote, Seroquel, Wellbutrin, and Geodon.?? There is a history of [facility] involvement and prior active community Leach order.?? It is not clear if there is any current legal status with this.?? He has outpatient psychiatric providers through [facility].?? Last provider was Markus Sanders NP, but he has not yet met his new provider at [facility]. ?? Substance Use Eugenio denies any current recreational and/or illicit substance misuse. There is a history of tobacco dependence, smoking 1 pack/day. ?? Social History Eugenio is currently , residing in an apartment in [place], [place] with [facility] assistance.?? He has a history of being a resident of a assisted.?? He identified his VNA, Liu, as his primary support.?? 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 He denied any access to firearms or lethal weapons.?? Trauma history is not reviewed during this ED evaluation.? Family History:?? Patient did not report any known psychiatric illness or substance use disorders.??No reported history of suicidality or attempts. ?? Review of Systems Pertinent positives as listed above in HPI. ??Otherwise, remainder of review of systems negative. Physical Exam Vitals & Measurements T:??97.7?F?? HR:??89??(Peripheral)?? RR:??18?? BP:??165/76?? SpO2:??100%?? Mental Status Exam Appearance: Hospital gown, disheveled Eye contact: Within normal limits Attitude: Suspicious Motor Activity: Restless, animated; absent of tics, tremors, psychomotor agitation, psychomotor slowing Mood: Not good! Affect: Broad, irritable, labile Speech: Spontaneous, hyperverbal, difficult to interrupt, intermittently loud tone Perception: Admits to AH, no VH;?? appears internally preoccupied, responding to internal stimuli Orientation: Intact to person, place, general situation Memory: Grossly intact Thought Process: Disorganized Thought Content: Paranoia, query somatic delusions Medication Adherence: Impaired Reliability: Limited historian Insight: Impaired Judgment: Impaired?? Impulse control: Impaired Suicidality/Self-destructive Behavior: Recent passive suicidality, but no current??active SI/intent/plan Homicidality/Violence: None currently, but recent vague homicidality??precipitating this consultation. Muscle strength/tone: Antigravity. No cogwheeling or??rigidity noted. Not observed ambulating, but moving all four extremities spontaneously.? Assessment/Plan Assessment:?In brief, this is a 58-year-old gentleman with past psychiatric history significant for schizoaffective disorder, bipolar type, suicidality, and several prior inpatient psychiatric hospitalizations for treatment of the same as well as medical history notable for hypertension, hypothyroidism, insulin- dependent diabetes mellitus, obesity, pancytopenia, splenomegaly, and myelodysplastic syndrome, who initially presented to [facility] on 09/24/2023 for evaluation of chest and full body pain as well as endorsing auditory hallucinations and homicidal ideation. ??At this point in time, the patient??is being medically admitted for further workup and evaluation of pancyt openia.?Prior to the??medical admission order, the emergency psychiatry service was consulted for??evaluation of??perceptual disturbances and homicidality,??psychotropic medication management and assistance with disposition.?? Initial psychiatric evaluation is concerning for??disorganized thought form,??paranoia, potential somatic delusions,??speech impairments,??perceptual disturbances,??and vague suicidality and homicidality??concerning for an acute??bipolar manic episode superimposed upon underlying??schizoaffective disorder,??in the context of medication nonadherence of suspected??several months duration.?? As he presents currently here in the ED,??Eugenio appears to meet criteria for inpatient psychiatric hospitalization for safety and stabilization.?? Unfortunately,??he is not yet medically cleared??and??imminently??being admitted to the hospitalist service.?? Would recommend that??hospitalist team??have the patient reassessed by our??CL team for reassessment of disposition??and likely need for inpatient psychiatric hospitalization??due to severity of??psychiatric illness.?? In the interim, the patient should not be allowed to leave AMA without psychiatry clearance.?? In the interim, it seems reasonable to restart Trilafon with plans for further titration to better targetpsychotic symptoms.?? While there is some risk for blood dyscrasias with antipsychotic medication therapies, it would appear that treating the acute psychotic illness outweighs risk of medication therapy at this point. Additional PRNs made available for anxiety, insomnia and agitation. Explained tothe patient the differential diagnoses, treatment options, risks of untreated illness, and??risks/benefits??of treatment. See below for additional details??on treatment recommendations. ? Diagnoses: Schizoaffective disorder, bipolar type Suicidal ideation Homicidal ideation Auditory hallucinations Paranoid delusions Agitation Nonadherence to medications Pancytopenia ? Recommendations: -Continue constant financial solutions advisor. Patient may NOT leave AMA without psychiatry clearance. Please contact pager [phone] once patient is medically cleared for psychiatry follow-up for likely need of inpatient psychiatric hospitalization for safety and stabilization. -Initiating Trilafon 8 mg PO twice daily with further optimization as clinically indicated for psychosis and/or mood stabilization. Prior home regimen was for 12 mg three times daily (TDD 36 mg). -Initiating Vistaril 50 mg PO Q6H PRN anxiety and Trazodone 50 mg PO daily at bedtime PRN insomnia. -Initiating Haldol 5 mg, Ativan 2 mg, and Benadryl 50 mg PO/IM Q6H PRN agitation/psychosis.??The preference is for PO medications, but if the patient refuses the oral medications and there is sufficient acute safety concern, can judiciously utilize IM equivalents for severe agitation.??This medication combination should only be utilized in the hospital setting and there is no need to discharge the patient on these medications. -Would note that these medications are only being utilized in the ER and/or medical floors while the patient awaits placement. Long-term need for these medications will need to be assessed by the patient's future treating psychiatrist. -Follow-up CXR, expanded urine toxicology and add on lab order for TSH w/ reflex T4. ?? -ECG for baseline QT/QTc when able as the patient is on multiple potential QT- prolonging agents. ? Thank you for allowing us to participate in this patient's care. We will continue to follow the patient as needed by the primary team. Please feel free to contact the Psychiatry consult service (pager [phone]) with any questions or concerns.? Recommendations discussed with ED crisis clinical team and??TigerTexted to emergency medicine physician, Dr. Lou [place]. ? Sherlyn Rosa D.O.?? Sat Math Tutor, Emergency Psychiatry Services Division of Consultation-Liaison Psychiatry Department of Psychiatry [facility]? Problem List/Past Medical History Ongoing Bipolar Diabetes mellitus type 2 Hypertension Hypothyroidism Obese class I Obesity Pancytopenia Pulmonary nodule, right Schizophrenia Medications Inpatient Ativan 2 mg oral tablet, 2 mg, By Mouth, Every 6 hours, PRN Benadryl Tablet, 50 mg, By Mouth, Every 6 hours, PRN haloperidol 5 mg oral tablet, 5 mg, By Mouth, Every 6 hours, PRN perphenazine 8 mg oral tablet, 8 mg, By Mouth, 2 times a day traZODone 50 mg oral tablet, 50 mg, By Mouth, Daily at bedtime, PRN Vistaril Capsule, 50 mg, By Mouth, Every 6 hours, PRN Home acetaminophen 325 mg oral tablet, 650 mg, By Mouth, Every 4 hours, PRN Alcohol Pads, See Instructions, 11 refills Alcohol Pads, See Instructions, 5 refills Alcohol Wipes, See Instructions, 1 refills Alcohol Wipes, See Instructions, 11 refills atorvastatin 10 mg oral tablet, 10 mg= 1 tablet, By Mouth, Daily clonazePAM 1 mg oral tablet, 1 mg= 1 tablet, By Mouth, 3 times a day COMFRT TOUCH PAD ALC PREP, See Instructions desmopressin 0.1 mg oral tablet, 0.2 mg= 2 tablet, By Mouth, Daily at bedtime Freestyle alo 2 14-day sensors, See Instructions, 11 refills Freestyle alo 2 reader, See Instructions Freestyle Lite Lancets, See Instructions, 11 refills Freestyle Lite Monitor, See Instructions Freestyle Lite Test Strips, See Instructions, 3 refills Insulin Syringe, BD Ultra-Fine 1 cc 31 G x 8 mm (5/16in), See Instructions, 5 refills Insulin Syringe, BD Ultra-Fine 1 cc 31 G x 8 mm (5/16in), See Instructions, 3 refills lactulose 10 gm/15 ml oral syrup, 10 Gm= 15 mL, By Mouth, Daily, PRN Lantus Solostar Pen 100 units/mL subcutaneous solution, 35 units, Subcutaneous Infusion, Daily, 11 refills Levothyroxine Tablet, 50 mcg, By Mouth, Daily magnesium oxide 400 mg oral tablet, 400 mg= 1 tablet, By Mouth, Daily One Touch UltraSoft Lancets, See Instructions Ozempic 2 mg/3 mL (0.25 mg or 0.5 mg dose) subcutaneous solution Pen [place], 31 G x 8 mm BD Ultra Fine III, See Instructions, 11 refills perphenazine 2 mg oral tablet, See Instructions PLASTIC URINAL, See Instructions Protonix 20 mg oral delayed release tablet, 20 mg, By Mouth, Daily Tab-A-Devon oral tablet, 1 tablet, By Mouth, Daily tiZANidine 4 mg oral tablet, 4 mg= 1 tablet, By Mouth, Daily at bedtime traZODone 100 mg oral tablet, 2 tablets, By Mouth, Daily at bedtime Allergies Clozaril metformin??(DIARRHEA) Immunizations Vaccine Date Status pneumococcal 23-valent vaccine - Not Given Comments : Patient Refused influenza virus vaccine, inactivated - Not Given Comments : Patient Refused Note * Ramiro Tran MD: MODIFY Sujatha Oneil DO: PERFORM Event Display: Discharge/Transfer Note Hospital Authored Date: [id number] Patient: ??EUGENIO WHITE ? Age:??58 Years?Sex:??Male?:??1965?? Patient Information Discharge Location: S2 Primary Care Physician: Mando Turpin MD Admit Date/Time: 09/24/23 12:56 Pending VNA confirmation for DC Discharge Disposition Discharge Disposition: Home with Home Health Discharge Diagnosis Diabetes mellitus type 2 (E11.9) Hypertension (I10) Hypothyroidism (E03.9) Pancytopenia (D61.818) Schizophrenia (F20.9) Bipolar Whole body pain (R52) Homicidal ideation (R45.850) Bipolar disorder (F31.9) Myelodysplastic syndrome (D46.9) _ Discharge Medications Acetaminophen (Tylenol Extra Strength 500 mg oral tablet)?1?tab(s)?500?Milligram?By Mouth?Every 6 hours?as needed?Pain , Mild Aspirin (aspirin 81 mg oral delayed release tablet)?81?Milligram?1?tablet?By Mouth?Daily Atorvastatin (atorvastatin 10 mg oral tablet)?1?tab(s)?10?Milligram?By Mouth?Daily at bedtime Cholecalciferol (Vitamin D3 1000 intl units oral capsule)?1?capsule?25?Microgram?By Mouth?Daily Docusate (Colace sodium 100 mg oral capsule)?200?Milligram?2?capsule?By Mouth?2 times a day Durable Medical Equipment (Alcohol Wipes)?See Instructions?use 3x/day [...] 90 day supply Durable Medical Equipment (Pen [place], 31 G x 8 mm BD Ultra [...] Instructions?test blood sugar 4x day, DX E11.9 Durable Medical Equipment (Alcohol Pads)?See Instructions?for 30?Days?use as directed to clean skin 5x a day Famotidine (Pepcid 20 mg oral tablet)?2?tab(s)?40?Milligram?By Mouth?2 times a day Insulin Glargine (Lantus Solostar Pen 100 units/mL subcutaneous solution)?48?unit(s)?Subcutaneous Injection?Daily Levothyroxine (levothyroxine 0.05 mg oral tablet)?1?tab(s)?50?Microgram?By Mouth?Daily Magnesium Oxide (magnesium oxide 400 mg oral tablet)?1?tab(s)?400?Milligram?By Mouth?Daily Metoprolol (metoprolol 50 mg oral tablet)?50?Milligram?1?tablet?By Mouth?2 times a day Miscellaneous Rx (PLASTIC ??URINAL)?See Instructions?USE DIRECTED AT HOME Miscellaneous Rx ([employer] alo 2 reader)?See Instructions?Use to check BG up to 5 times/day Miscellaneous Rx (Groxisyle alo 2 14-day sensors)?See Instructions?Use to check BG up to 5 times/day, change every 14 days, wear on the back of the upper arm Miscellaneous Rx (COMFRT TOUCH PAD ALC PREP)?See Instructions?USE DIRECTED TO CLEAN AREA 5TIMES A DAY Multivitamin (Tab-A-Devon oral tablet)?1?tab(s)?By Mouth?Daily Pantoprazole (Protonix 40 mg oral delayed release tablet)?1?tab(s)?40?Milligram?By Mouth?Daily Perphenazine (perphenazine 8 mg oral tablet)?8?Milligram?By Mouth?2 times a day semaglutide (Ozempic 2 mg/3 mL (0.25 mg or 0.5 mg dose) subcutaneous solution)?0.5?Milligram?Subcutaneous Injection?Every Thursday Tizanidine (tiZANidine 4 mg oral tablet)?4?Milligram?1?tablet?By Mouth?Daily at bedtime ?? Medications Started Perphenazine (perphenazine 8 mg oral tablet)?8?Milligram?By Mouth?2 times a day Medications Discontinued None Doses Changed None PCP Follow-Up/Heads-Up Patient was admitted for homicidal ideation and generalized pain but has denied all treatment from psychiatry and hematology.?? Patient will need outpatient follow-up on his pancytopenia and bipolar disorder.?? Currently medically fit to be discharged?? Hospital Course 58-year-old male with past medical history significant for diabetes, hypertension, hypothyroidism, bipolar disorder, schizophrenia, pancytopenia, myelodysplastic syndrome (refused treatment, on monthly CBC monitoring), presented with generalized body pain, admitted with homicidal ideation, generalized pain,??and pancytopenia. ??Patient's course was complicated by severe agitation for which psychiatry saw him??and cleared him for discharge??with perphenazine 8 mg twice daily. Hematology also sawthis patient for intermediate high risk MDS with increased blast and pancytopenia.?? Patient has denied treatment as well as platelet and RBC transfusions at this time. Course continues to be complicated by agitation and SI comments (continues to be cleared by psych). Pending VNA response for DC. ?? Homicidal ideation (R45.850) in the setting of Bipolar disorder (F31.9),??Schizophrenia (F20.9) In ED patient reportedly said he wants to shoot someone. ??Patient was severely agitated yesterday. Patient has been cleared by psychiatry multiple times, although continues to make SI/HI comments intermittently. Patient would like to be DC today. ?? Plan: ?Outpatient follow-up with PCP ??? Continue home meds as well as new med of perphenazine 8 mg twice daily ?? Pancytopenia (D61.818) in the setting of Myelodysplastic syndrome (D46.9) Diagnosed??earlier in the year??during his??hospitalization Refused treatment??for MDS, gets??monthly CBC checks.?? Had refused transfusion in the past given his personal beliefs He is afebrile, no signs of infection.??On neutropenic precautions Platelet count 12.??No evidence for active bleeding, closely monitor ?? Plan: -Outpatient lab work for continuous monitoring -Hematology consulted and patient has denied all treatment ?? Whole body pain (R52):?? Unclear etiology.?Appears to be chronic and related to MDS Pt states he has arthritis throughout his body, however no formal diagnosis ESR and CRP elevated, CK wnl. ?? Plan: -Continue Tylenol as needed -Continue home tizanidine -Follow-up outpatient with PCP ?? Diabetes mellitus type 2 (E11.9):?? On insulin and ozempic at home ?? Plan: -Continue home diabetes mellitus regimen and follow-up with PCP ?? Hypertension (I10):??Cont metoprolol 50mg BID Hypothyroidism (E03.9):??Continue levothyroxine 50mcg Objective Vital Signs?? Temperature: 98 DegF (09/28/23 11:07:00) Temperature Route: Oral (09/28/23 11:07:00) Pulse Rate: 88 bpm (09/28/23 11:07:00) Respiratory Rate: 16 br/min (09/28/23 11:07:00) Systolic Blood Pressure:??147 mm Hg??High (09/28/23 11:07:00) Diastolic Blood Pressure: 68 mm Hg (09/28/23 11:07:00) Blood pressure sites: Arm, left (09/28/23 11:07:00) Mean Arterial Pressure: 94 mm Hg (09/28/23 11:07:00) Pulse Pressure: 79 mm Hg (09/28/23 11:07:00) Oxygen Saturation: 100 % (09/28/23 11:07:00) Mode of Delivery (Oxygen): Room air (09/28/23 11:07:00) Early Warning Score: 0 (09/28/23 11:10:22) ? . Physical Exam Constitutional: Alert, in no distress. Mental Status: Oriented to person, place and time. Respiratory: Clear to auscultation. No wheezing, rales or rhonchi. Cardiovascular: S1 S2 regular. No murmurs, rubs or gallops. Gastrointestinal: Abdomen soft, non-tender, non-distended. Neurologic:?? No focal neurological deficits. Flexor plantar response. Moves all extremities spontaneously. Sensation intact bilaterally. Skin: No rashes or lesions. No petechiae or purpura.?? Musculoskeletal: No cyanosis or clubbing. No gross deformities. Psychiatric: Normal mood and affect [facility] Psych[facility] Patient Education Titles WebMD Ignite Patient Education - Anemia, Type Not Specified (Adult)?? Web[employer] Ign[employer] Patient Education - Pediatric Cancer: Parenting the Healthy Child?? WebMD Ignite Patient Education - Bipolar Disorder?? Follow-Up Appointments Added Follow Up ?Time Frame ?Comments Papi GONSALVES, Mando Bearden?3-5 day: call to discuss follow up visit Patient Instructions Please follow-up with your PCP on your chronic conditions.?? We have added on perphenazine 8 mg twice daily??to help with your mood.?If you choose to??accept treatment for your MDS??please follow-up with hematology. Post Discharge Care Discharge Prescriptions ?ePrescribed, 09/26/23 15:53:00 EDT Home Health Face to Face *Denotes mandatory mcallister ?? *I certify that this patient is under my care and that I or an allowed non- physician working with me had a face to face encounter with the patient on this date:??09/28/2023 11:56 ?? *The encounter with the patient was in whole, or in part, for the following medical condition, which is the primary diagnosis(es) for home health care:??Diabetes mellitus type 2 (E11.9) Hypertension (I10) Hypothyroidism (E03.9) Pancytopenia (D61.818) Schizophrenia (F20.9) Bipolar Whole body pain (R52) Homicidal ideation (R45.850) Bipolar disorder (F31.9) Myelodysplastic syndrome (D46.9) ?? *Select the indications for the discipline/s that are being arranged for this patient. Nursing (select all that apply): [_] None [x] Medication management (reconciliation, teaching)?? [x] Chronic disease management?? [_] Wound care and treatment?? [_] Home safety evaluation [_] Administer SQ/IM/IV medications?? [_] Cath care?? [_] Drain care?? [_] Trach or GT care?? Other _ Occupation Therapy (select all that apply): [_] None [x] ADL Management [_] Fall prevention training [_] Energy conservation [_] Cognitive training Other _ Physical Therapy (select all that apply): [x] None [_] Functional mobility training [_] Home exercise program to strengthen [_] Increase ROM?? [_] Falls prevention training [_] Home maintenance program for chronic disease Other _ Speech Therapy (select all that apply): [x] None [_] Swallow evaluation and training [_] Speech and language training [_] Cognitive training to process, organize, and/or recall information Other _ ? *Homebound due to (select all that apply): [x] Inability to leave home without assistance/supervision [_] Inability to ambulate without assistance [_] Pain [_] Decreased strength and endurance [_] Unsteady gait [_] Severe SOB and fatigue [_] Impaired transfers [_] Inability to negotiate stairs [_] Limited weight bearing [_] Mental status change? *Physician Signature:??Sujatha Oneil DO ?? *By signing this, I certify that I have personally evaluated the patient and agree with the findings and recommendations as documented above. Results Discharge Labs BLOOD BANK Blood Type A Positive ()?? 09/24/2023 11:24 Antibody Screen Negative ()?? 09/24/2023 11:24 ?? BLOOD COUNT & DIFF WBC 1.8 k/mm3 (Critical)?? 09/25/2023 06:39 RBC 2.68 m/mm3 (Low)?? 09/25/2023 06:39 Hgb 7.5 Gm/dL (Low)?? 09/25/2023 06:39 Hct 23.5 % (Low)?? 09/25/2023 06:39 MCV 87.7 femtoliters ()?? 09/25/2023 06:39 MCH 28.0 pg ()?? 09/25/2023 06:39 MCHC 31.9 g/dL (Low)?? 09/25/2023 06:39 Platelet Count 12 k/mm3 (Critical)?? 09/25/2023 06:39 RDW-SD 70.3 femtoliters (High)?? 09/25/2023 06:39 MPV NOT MEASURED femtoliters ()?? 09/25/2023 06:39 Nucleated RBC (Automated) 1.1 #/100 WBC'S ()?? 09/25/2023 06:39 Abs. NRBC 0.0 k/mm3 ()?? 09/25/2023 06:39 Abs. Neut 0.0 k/mm3 (Low)?? 09/25/2023 06:39 Abs. Lymph 1.8 k/mm3 ()?? 09/25/2023 06:39 Abs. [place] 0.0 k/mm3 (Low)?? 09/25/2023 06:39 Abs. Eo 0.0 k/mm3 ()?? 09/25/2023 06:39 Abs. Baso 0.0 k/mm3 ()?? 09/25/2023 06:39 Neut % 0.9 % (Low)?? 09/25/2023 06:39 Lymph % 91.1 % (High)?? 09/25/2023 06:39 [place] % 1.8 % (Low)?? 09/25/2023 06:39 Eos % 0.0 % ()?? 09/25/2023 06:39 Baso % 0.9 % ()?? 09/25/2023 06:39 Atypical Lymph % 5.3 % (High)?? 09/25/2023 06:39 Peripheral Blood Smear Review Interp. Reviewed by pathologist. ()?? 09/25/2023 06:39 RBC Morphology MODERATE ()?? 09/25/2023 06:39 Platelet Estimate DECREASED ()?? 09/25/2023 06:39 Imm Gran 0.0 % ()?? 09/24/2023 11:55 Abs. Imm Gran 0.0 k/mm3 ()?? 09/24/2023 11:55 ?? CARDIAC CK, Total 168 units/L ()?? 09/25/2023 06:39 High Sensitivity Troponin (HSTnT) 16 ng/L ()?? 09/24/2023 11:55 ?? CHEM GENERAL Sodium 138 mmol/L ()?? 09/25/2023 06:39 Potassium 4.6 mmol/L ()?? 09/25/2023 06:39 Chloride 103 mmol/L ()?? 09/25/2023 06:39 Bicarbonate Level 25 mmol/L ()?? 09/25/2023 06:39 Anion Gap 10 ()?? 09/25/2023 06:39 Glucose Level 273 mg/dL (High)?? 09/24/2023 11:55 Glucose, POC 212 mg/dL (High)?? 09/28/2023 07:56 BUN 12 mg/dL ()?? 09/25/2023 06:39 Creatinine-Blood 0.92 mg/dL ()?? 09/25/2023 06:39 Estimated GFR Creatinine 96 ML/MIN/1.73 M2 ()?? 09/25/2023 06:39 Calcium 9.7 mg/dL ()?? 09/24/2023 11:55 Protein, Total 6.8 Gm/dL ()?? 09/24/2023 11:55 Albumin 4.0 Gm/dL ()?? 09/24/2023 11:55 AG Ratio 1.4 ()?? 09/24/2023 11:55 Alkaline Phosphatase 87 units/L ()?? 09/24/2023 11:55 AST (SGOT) 21 units/L ()?? 09/24/2023 11:55 ALT (SGPT) 17 units/L ()?? 09/24/2023 11:55 Bilirubin, Total 0.9 mg/dL ()?? 09/24/2023 11:55 C-Reactive Protein 2.9 mg/dL (High)?? 09/25/2023 06:39 ? COAG INR 1.2 (High)?? 09/24/2023 11:55 Protime (PT) 13.0 seconds (High)?? 09/24/2023 11:55 APTT 27.8 seconds ()?? 09/24/2023 11:55 ? ENDOCRINE/TUMOR MARKER TSH 1.68 uIU/mL ()?? 09/24/2023 11:55 ? HEME OTHER Sed Rate 38 mm/hr (High)?? 09/25/2023 06:39 ? URINE OTHER Est Creatinine Clearance 95.02 mL/min ()?? 09/25/2023 07:42 ? 30??minutes spent on discharge ?? Patient seen and discussed with attending physician Dr. Tran. ?? Shaber A. Seraj, DO Internal Medicine PGY1 * Ramiro Tran MD: PERFORM Event Display: Discharge/Transfer Note Hospital Authored Date: Attending Attestation (Ramiro Tran M.D.) 58-year-old man with schizoaffective disorder, chronic pancytopenia presented for homicidal ideation with no recommendation for inpatient psychiatric placement and patient refusal for treatment of pancytopenia. ?? Diagnoses: Schizoaffective disorder, bipolar type ??Myelodysplastic syndrome ??Pancytopenia ??Insulin dependent type 2 diabetes ? Vitals reviewed and significant for Hypertension and otherwise unremarkable. Labwork reviewed and significant for Hyperglycemia ?? Assessment: Patient refusing Lispro SSI ?? Recommendations: - Follow-up with PCP in 3-5 days ?? PCP to repeat the following labwork at the next PCP appointment in 3-5 days: CBC with differential. ?? Quality Measures: CODE STATUS: FULL CODE DVT Prophylaxis: PCBs (Low Perlita score) ?? I evaluated the patient on date of service 09/28/2023. I saw and evaluated this patient with Dr. Oneil and agree with the resident???s findings and plan of care as documented by the resident or edited by me. I spent??37??minutes on the following:??preparing to see the patient (eg, review of tests), obtaining and/or reviewing separately obtained history, performing a medically appropriate examination and/or evaluation and counseling and educating the patient/family/caregiver * Sujatha Oneil DO: PERFORM Event Display: Discharge/Transfer Note Hospital Authored Date: Per psych, patient can continue home meds of Klonopin .5mg BID, trazodone 200mg nightly and perphenazine 12mg TID. * Sujatha Oneil DO: PERFORM, MODIFY Event Display: Discharge/Transfer Note Hospital Authored Date: Patient: ??EUGENIO WHITE ? Age:??58 Years?Sex:??Male?:??1965?? Patient Information Discharge Location: S2 Primary Care Physician: Mando Turpin MD Admit Date/Time: 09/24/23 12:56 Discharge date/time: 09/26/2023 Discharge Disposition Discharge Disposition: Home with Home Health Discharge Diagnosis Diabetes mellitus type 2 (E11.9) Hypertension (I10) Hypothyroidism (E03.9) Pancytopenia (D61.818) Schizophrenia (F20.9) Bipolar Whole body pain (R52) Homicidal ideation (R45.850) Bipolar disorder (F31.9) Myelodysplastic syndrome (D46.9) _ Discharge Medications Acetaminophen (Tylenol Extra Strength 500 mg oral tablet)?1?tab(s)?500?Milligram?By Mouth?Every 6 hours?as needed?Pain , Mild Aspirin (aspirin 81 mg oral delayed release tablet)?81?Milligram?1?tablet?By Mouth?Daily Atorvastatin (atorvastatin 10 mg oral tablet)?1?tab(s)?10?Milligram?By Mouth?Daily at bedtime Cholecalciferol (Vitamin D3 1000 intl units oral capsule)?1?capsule?25?Microgram?By Mouth?Daily Docusate (Colace sodium 100 mg oral capsule)?200?Milligram?2?capsule?By Mouth?2 times a day Durable Medical Equipment (Alcohol Wipes)?See Instructions?use 3x/day [...] 90 day supply Durable Medical Equipment (Pen [place], 31 G x 8 mm BD Ultra [...] Instructions?test blood sugar 4x day, DX E11.9 Durable Medical Equipment (Alcohol Pads)?See Instructions?for 30?Days?use as directed to clean skin 5x a day Famotidine (Pepcid 20 mg oral tablet)?2?tab(s)?40?Milligram?By Mouth?2 times a day Insulin Glargine (Lantus Solostar Pen 100 units/mL subcutaneous solution)?48?unit(s)?Subcutaneous Injection?Daily Levothyroxine (levothyroxine 0.05 mg oral tablet)?1?tab(s)?50?Microgram?By Mouth?Daily Magnesium Oxide (magnesium oxide 400 mg oral tablet)?1?tab(s)?400?Milligram?By Mouth?Daily Metoprolol (metoprolol 50 mg oral tablet)?50?Milligram?1?tablet?By Mouth?2 times a day Miscellaneous Rx (PLASTIC ??URINAL)?See Instructions?USE DIRECTED AT [...] Multivitamin (Tab-A-Devon oral tablet)?1?tab(s)?By Mouth?Daily Pantoprazole (Protonix 40 mg oral delayed release tablet)?1?tab(s)?40?Milligram?By Mouth?Daily Perphenazine (perphenazine 8 mg oral tablet)?8?Milligram?By Mouth?2 times a day semaglutide (Ozempic 2 mg/3 mL (0.25 mg or 0.5 mg dose) subcutaneous solution)?0.5?Milligram?Subcutaneous Injection?Every Thursday Tizanidine (tiZANidine 4 mg oral tablet)?4?Milligram?1?tablet?By Mouth?Daily at bedtime Medications Started Perphenazine Medications Discontinued None Doses Changed None PCP Follow-Up/Heads-Up Patient was admitted for homicidal ideation and generalized pain but has denied all treatment from psychiatry and hematology.?? Patient will need outpatient follow-up on his pancytopenia and bipolar disorder.?? Currently medically fit to be discharged?? Hospital Course 58-year-old male with past medical history significant for diabetes, hypertension, hypothyroidism, bipolar disorder, schizophrenia, pancytopenia, myelodysplastic syndrome (refused treatment, on monthly CBC monitoring), presented with generalized body pain, admitted with homicidal ideation, generalized pain,??and pancytopenia. ??Patient's course was complicated by severe agitation for which psychiatry saw him??and cleared him for discharge??with perphenazine 8 mg twice daily. Hematology also sawthis patient for intermediate high risk MDS with increased blast and pancytopenia.?? Patient has denied treatment as well as platelet and RBC transfusions at this time. ?? Homicidal ideation (R45.850) in the setting of Bipolar disorder (F31.9),??Schizophrenia (F20.9) In ED patient reportedly said he wants to shoot someone. ??Patient was severely agitated yesterday. Calm and cooperative this morning and patient is ready for discharge.?? Psychiatry??cleared for discharge. Patient agreeable with plan ?? Plan: ?Outpatient follow-up with PCP ??? Continue home meds as well as new med of perphenazine 8 mg twice daily ?? Pancytopenia (D61.818) in the setting of Myelodysplastic syndrome (D46.9) Diagnosed??earlier in the year??during his??hospitalization Refused treatment??for MDS, gets??monthly CBC checks.?? Had refused transfusion in the past given his personal beliefs He is afebrile, no signs of infection.??On neutropenic precautions Platelet count 11.??No evidence for active bleeding, closely monitor ?? Plan: -Outpatient lab work for continuous monitoring -Hematology consulted and patient has denied all treatment ?? Whole body pain (R52):?? Unclear etiology.?Appears to be chronic and related to MDS Pt states he has arthritis throughout his body, however no formal diagnosis ESR and CRP elevated, CK wnl. ?? Plan: -Continue Tylenol as needed -Continue home tizanidine -Follow-up outpatient with PCP ?? Diabetes mellitus type 2 (E11.9):?? On insulin and ozempic at home ?? Plan: -Continue home diabetes mellitus regimen and follow-up with PCP ?? Hypertension (I10):??Cont metoprolol 50mg BID Hypothyroidism (E03.9):??Continue levothyroxine 50mcg Objective Vital Signs?? Temperature: 98.8 DegF (09/26/23 06:00:00) Temperature Route: Oral (09/26/23 06:00:00) Pulse Rate: 73 bpm (09/26/23 06:00:00) Respiratory Rate: 18 br/min (09/26/23 06:00:00) Systolic Blood Pressure: 108 mm Hg (09/26/23 06:00:00) Diastolic Blood Pressure: 68 mm Hg (09/26/23 06:00:00) Blood pressure sites: Arm, left (09/26/23 06:00:00) Mean Arterial Pressure: 81 mm Hg (09/26/23 06:00:00) Pulse Pressure: 40 mm Hg (09/26/23 06:00:00) Oxygen Saturation: 98 % (09/26/23 06:00:00) Mode of Delivery (Oxygen): Room air (09/26/23 06:00:00) Early Warning Score: 6 (09/26/23 06:00:42) ? . Physical Exam General: No acute distress, somnolent CV: RRR S1 S2 present. No murmurs, gallops, rubs appreciated. No JVD. No edema. Respiratory: All mcallister clear to auscultation bilaterally. Dry cough with expiration Abdominal: Soft, tenderness in LUQ with deep palpation. No rebound tenderness. : No suprapubic tenderness. Neuro: A&OX3. Moving upper and lower extremities. No gross neurological deficits Psych: agitated and labile mood Skin: left hand early stage of ecchymosis, bruise on anterior aspect of left lower limb [facility] Hematology Patient Education Titles Web[employer] Patient Education - Anemia, Type Not Specified (Adult)?? Web[employer] Patient Education - Pediatric Cancer: Parenting the Healthy Child?? [employer] Patient Education - Bipolar Disorder?? Follow-Up Appointments Added Follow Up ?Time Frame ?Comments Papi GONSALVES, Mando Bearden?3-5 day: call to discuss follow up visit Patient Instructions Please follow-up with your PCP on your chronic conditions.?? We have added on perphenazine 8 mg twice daily??to help with your mood.?If you choose to??accept treatment for your MDS??please follow-up with hematology. Home Health Face to Face *Denotes mandatory mcallister ?? *I certify that this patient is under my care and that I or an allowed non- physician working with me had a face to face encounter with the patient on this date:??09/26/2023 09:33 ?? *The encounter with the patient was in whole, or in part, for the following medical condition, which is the primary diagnosis(es) for home health care:??Diabetes mellitus type 2 (E11.9) Hypertension (I10) Hypothyroidism (E03.9) Pancytopenia (D61.818) Schizophrenia (F20.9) Bipolar Whole body pain (R52) Homicidal ideation (R45.850) Bipolar disorder (F31.9) Myelodysplastic syndrome (D46.9) ?? *Select the indications for the discipline/s that are being arranged for this patient. Nursing (select all that apply): [_] None [x] Medication management (reconciliation, teaching)?? [x] Chronic disease management?? [_] Wound care and treatment?? [_] Home safety evaluation [_] Administer SQ/IM/IV medications?? [_] Cath care?? [_] Drain care?? [_] Trach or GT care?? Other _ Occupation Therapy (select all that apply): [ ] None [x] ADL Management [_] Fall prevention training [_] Energy conservation [_] Cognitive training Other _ Physical Therapy (select all that apply): [_] None [x] Functional mobility training [_] Home exercise program to strengthen [_] Increase ROM?? [_] Falls prevention training [_] Home maintenance program for chronic disease Other _ Speech Therapy (select all that apply): [x] None [_] Swallow evaluation and training [_] Speech and language training [_] Cognitive training to process, organize, and/or recall information Other _ ? *Homebound due to (select all that apply): [x] Inability to leave home without assistance/supervision [x] Inability to ambulate without assistance [xPain [_] Decreased strength and endurance [_] Unsteady gait [_] Severe SOB and fatigue [_] Impaired transfers [_] Inability to negotiate stairs [_] Limited weight bearing [_] Mental status change? *Physician Signature:??Sujatha Oneil ?? *By signing this, I certify that I have personally evaluated the patient and agree with the findings and recommendations as documented above. Results Discharge Labs BLOOD BANK Blood Type A Positive ()?? 09/24/2023 11:24 Antibody Screen Negative ()?? 09/24/2023 11:24 ?? BLOOD COUNT & DIFF WBC 1.8 k/mm3 (Critical)?? 09/25/2023 06:39 RBC 2.68 m/mm3 (Low)?? 09/25/2023 06:39 Hgb 7.5 Gm/dL (Low)?? 09/25/2023 06:39 Hct 23.5 % (Low)?? 09/25/2023 06:39 MCV 87.7 femtoliters ()?? 09/25/2023 06:39 MCH 28.0 pg ()?? 09/25/2023 06:39 MCHC 31.9 g/dL (Low)?? 09/25/2023 06:39 Platelet Count 12 k/mm3 (Critical)?? 09/25/2023 06:39 RDW-SD 70.3 femtoliters (High)?? 09/25/2023 06:39 MPV NOT MEASURED femtoliters ()?? 09/25/2023 06:39 Nucleated RBC (Automated) 1.1 #/100 WBC'S ()?? 09/25/2023 06:39 Abs. NRBC 0.0 k/mm3 ()?? 09/25/2023 06:39 Abs. Neut 0.0 k/mm3 (Low)?? 09/25/2023 06:39 Abs. Lymph 1.8 k/mm3 ()?? 09/25/2023 06:39 Abs. [place] 0.0 k/mm3 (Low)?? 09/25/2023 06:39 Abs. Eo 0.0 k/mm3 ()?? 09/25/2023 06:39 Abs. Baso 0.0 k/mm3 ()?? 09/25/2023 06:39 Neut % 0.9 % (Low)?? 09/25/2023 06:39 Lymph % 91.1 % (High)?? 09/25/2023 06:39 [place] % 1.8 % (Low)?? 09/25/2023 06:39 Eos % 0.0 % ()?? 09/25/2023 06:39 Baso % 0.9 % ()?? 09/25/2023 06:39 Atypical Lymph % 5.3 % (High)?? 09/25/2023 06:39 Peripheral Blood Smear Review Interp. Reviewed by pathologist. ()?? 09/25/2023 06:39 RBC Morphology MODERATE ()?? 09/25/2023 06:39 Platelet Estimate DECREASED ()?? 09/25/2023 06:39 Imm Gran 0.0 % ()?? 09/24/2023 11:55 Abs. Imm Gran 0.0 k/mm3 ()?? 09/24/2023 11:55 ?? CARDIAC CK, Total 168 units/L ()?? 09/25/2023 06:39 High Sensitivity Troponin (HSTnT) 16 ng/L ()?? 09/24/2023 11:55 ?? CHEM GENERAL Sodium 138 mmol/L ()?? 09/25/2023 06:39 Potassium 4.6 mmol/L ()?? 09/25/2023 06:39 Chloride 103 mmol/L ()?? 09/25/2023 06:39 Bicarbonate Level 25 mmol/L ()?? 09/25/2023 06:39 Anion Gap 10 ()?? 09/25/2023 06:39 Glucose Level 273 mg/dL (High)?? 09/24/2023 11:55 Glucose, POC 179 mg/dL (High)?? 09/25/2023 20:35 BUN 12 mg/dL ()?? 09/25/2023 06:39 Creatinine-Blood 0.92 mg/dL ()?? 09/25/2023 06:39 Estimated GFR Creatinine 96 ML/MIN/1.73 M2 ()?? 09/25/2023 06:39 Calcium 9.7 mg/dL ()?? 09/24/2023 11:55 Protein, Total 6.8 Gm/dL ()?? 09/24/2023 11:55 Albumin 4.0 Gm/dL ()?? 09/24/2023 11:55 AG Ratio 1.4 ()?? 09/24/2023 11:55 Alkaline Phosphatase 87 units/L ()?? 09/24/2023 11:55 AST (SGOT) 21 units/L ()?? 09/24/2023 11:55 ALT (SGPT) 17 units/L ()?? 09/24/2023 11:55 Bilirubin, Total 0.9 mg/dL ()?? 09/24/2023 11:55 C-Reactive Protein 2.9 mg/dL (High)?? 09/25/2023 06:39 ? COAG INR 1.2 (High)?? 09/24/2023 11:55 Protime (PT) 13.0 seconds (High)?? 09/24/2023 11:55 APTT 27.8 seconds ()?? 09/24/2023 11:55 ? ENDOCRINE/TUMOR MARKER TSH 1.68 uIU/mL ()?? 09/24/2023 11:55 ? HEME OTHER Sed Rate 38 mm/hr (High)?? 09/25/2023 06:39 ? URINE OTHER Est Creatinine Clearance 95.02 mL/min ()?? 09/25/2023 07:42 ? 30??minutes spent on discharge ?? Patient seen and discussed with attending physician Dr. Reich. ?? Sujatha Oneil DO Internal Medicine PGY1 * Malinda Reich DO: PERFORM Event Display: Discharge/Transfer Note Hospital Authored Date: I saw and examined the patient with the resident team and reviewed the chart on the day of service.??I have discussed the case and its management??with the resident as documented in the resident note on the day of service.??I agree with the resident's note and plan as documented.?? * Sujatha Oneil DO: PERFORM Event Display: Discharge/Transfer Note Hospital Authored Date: Difficulty in communicating with patient's VNA.?? In the a.m.,??there was trouble getting patient'snew medications to his VNA as well as arranging transportation.?? We stated that we would arrange this??but they felt that he should stay inpatient although he has no clear indication.?? At this timethey are not picking up the phone.?? If we are able to reach them, patient is medically ready for discharge and??medications have been sent to his pharmacy in [place]. * Sujatha Oneil DO: PERFORM Event Display: Discharge/Transfer Note Hospital Authored Date: [id number] [employer] booked at 5PM. * Carl Zurita MD: PERFORM Event Display: Discharge/Transfer Note Hospital Authored Date: [id number] Patient making SI/HI comments. Will defer discharge after psychiatric evaluation tomorrow. Discharge order cancelled. * Savannah Nino RN: PERFORM, SIGN, VERIFY Event Display: Case Management Discharge Plan Authored Date: [id number] Patient: EUGENIO WHITE Age: 58 years Sex: Male : 1965 Associated Diagnoses: None Author: Savannah Nino RN Discharge Plan Case Management Discharge Plan : Case Management Discharge Plan Data 09/26/2023 15:50 EDT Discharge Level of Care at Discharge Homehealth/VNA Discharge VNA/Hospice/Home Care [facility] Name of Agency #1 [facility] Agency Parking Lot Laborer #1 Intake Service Categories #1 Other: Medication Administation * Demarcus Rollins: PERFORM Event Display: Patient Education/Instruction Authored Date: Inpatient Adult Discharge Instructions. [address] [address] Name: EUGENIO WHITE : 1965?? Visit: 09/24/2023 12:56?? Current Date: 09/26/2023 11:30 ?? Account: [id number]?? Inpatient Adult Discharge Instructions We would like [...] and their families. Surveys are administered by [employer] ?? If further treatment with your primary care physician or another doctor is recommended, it is important for you to keep the appointment. Call your primary care physician or return to the Emergency Department immediately if your condition worsens, fails to improve, or new symptoms develop. If you need to find a doctor, you can call [facility] Link for a referral at [phone] or toll free at [phone] ([phone]) or log in to [email or web address].. ?? [facility], in keeping with [facility] guidance, no longer requires face masks [...] a health care karon of your choosing. [employer] is a website that allows you to securely view your medical information including your hospital discharge summary, office visit summaries, medications and follow-up visits. You can also request appointments, renew medications, and request access to your medical information using a health care karon of your choosing, or just ask a question. You can enroll at [email or web address] or register during your next office visit. You have been discharged from [facility], Patient Care Unit: S2??. If you have any questions regarding these instructions, including results of studies pending, afteryou leave, please call us and we will be happy to assist you 24/11. [facility] Your Care Team Attending Physician Malinda Reich DO?? Consulting Providers Malinda Reich DO?? Discharging Providers Sujatha Oneil DO Reason for Your Visit bib ems from home co pain to head shoulders knees and toes?? Your Diagnosis Diabetes mellitus type 2 Hypertension Hypothyroidism Pancytopenia Schizophrenia Bipolar Bipolar disorder General medical Homicidal ideation Myelodysplastic syndrome Tests Performed Below is a partial list of the tests performed during your hospitalization. You may have had other tests and procedures not included in this list. Please discuss all test results with your provider. BUN CBC Comprehensive Metabolic Panel CPK Total Only Creatinine CRP DIFFERENTIAL Electrolytes ESR GLUCOSE POC PERIPHERAL BLOOD SMEAR REVIEW PT (INR) PTT TSH WITH REFLEX TO FT4 Type and Screen XR Chest 2 Views Frontal and Lat Add On Lab Order?? Amphetamine Urine Screen?? Barbiturate Urine Screen?? Basic Metabolic Panel?? Benzodiazepine Urine Screen?? CBC w/ Differential?? Cannabinoid Urine Screen?? Cocaine Urine Screen?? High??Sensitivity??Troponin T?? Magnesium Level?? Opiate Screen Urine?? Phosphorus Level?? Primary Care Provider Mando Turpin MD? Advance Directive Health Care Proxy on File No Patient refuses to discuss Discharge Vitals Temperature: 98.8 DegF Height: 183 cm Pulse Rate: 73 bpm Weight: 95 kg Respiratory Rate: 18 br/min Body Mass Index:??28.37 kg/m2??High Systolic Blood Pressure: 108 mm Hg Body surface area: 2.2 Diastolic Blood Pressure: 68 mm Hg ?? Oxygen Saturation: 98 % ?? Studies Pending All studies ordered during this hospital stay have been completed unless listed below. Please discuss all pending results with your provider listed above in these instructions. ?? Add On Lab Order?? Amphetamine Urine Screen?? Barbiturate Urine Screen?? Basic Metabolic Panel?? Benzodiazepine Urine Screen?? CBC w/ Differential?? Cannabinoid Urine Screen?? Cocaine Urine Screen?? High??Sensitivity??Troponin T?? Magnesium Level?? Opiate Screen Urine?? Phosphorus Level?? What to do next Instructions From Your Doctor Please follow-up with your PCP on your chronic conditions.?? We have added on perphenazine 8 mg twice daily??to help with your mood.?If you choose to??accept treatment for your MDS??please follow-up with hematology. ?? Orders? 09/26/23 10:55:00 EDT?? Prescriptions??, ??09/26/23 10:55:00 EDT?? You Need to Schedule the Following Appointments Follow Up with??Mando Turpin MD When:??Within 3-5 day: call to discuss follow up visit Where: [address] [place] [address] Drive [address] [place] [address]- Discharge Medications EUGENIO WHITE :1965 Visit Date:09/24/2023 Medications: Please continue your medications until treatment is completed or stopped by your provider. Medications not listed below should be discontinued. Discuss any questions related to medications with your provider. What How Much When Instructions Next Dose New Perphenazine (perphenazine 8 mg oral tablet) 8 Milligram Oral Twice a day Refills: 3 Pickup at [facility] 09/26/23 9pm Unchanged Acetaminophen (Tylenol Extra Strength 500 mg oral tablet) 1 tab(s) Oral Every 6 hours as needed for Pain , Mild As needed Unchanged Aspirin (aspirin 81 mg oral delayed release tablet) 1 tab(s) Oral Daily 09/27/23 9am Unchanged Atorvastatin (atorvastatin 10 mg oral tablet) 1 tab(s) Oral Daily at Bedtime 09/26/23 9pm Unchanged Cholecalciferol (Vitamin D3 1000 intl units oral capsule) 1 capsule Oral Daily Unchanged Docusate (Colace sodium 100 mg oral capsule) 2 capsule Oral Twice a day 09/26/23 9pm Unchanged Durable Medical Equipment (Alcohol Pads) See instructions use to clean finger tips for glucose monitoring 5x/ day ??DxE11.9 ?? DME Unchanged Durable Medical Equipment (Alcohol Pads) See instructions Duration: 30 Days use as directed to clean skin 5x a day ?? DME Unchanged Durable Medical Equipment (Alcohol Wipes) See instructions use 3x/ day for skin prep ?? DME Unchanged Durable Medical Equipment (Alcohol Wipes) See instructions use 3x/ day for skin prep ?? DME Unchanged Durable Medical Equipment (Freestyle Lite Lancets) See instructions test blood sugar 5x day, DX E11.9, ?? DME Unchanged Durable Medical Equipment (Freestyle Lite Monitor) See instructions DX E11.9 ?? DME Unchanged Durable Medical Equipment (Freestyle Lite Test Strips) See instructions test blood sugar 4x day, DX E11.9 ?? DME Unchanged Durable Medical Equipment (Insulin Syringe, BD Ultra-Fine 1 cc 31 G x 8 mm (5/ 16in)) Seeinstructions USE 4 PER DAY ?? DME Unchanged Durable Medical Equipment (Insulin Syringe, BD Ultra-Fine 1 cc 31 G x 8 mm (5/ 16in)) Seeinstructions 4 x a day injection, 90 day supply ?? DME Unchanged Durable Medical Equipment (One Touch UltraSoft Lancets) See instructions TEST BS 2-3 TIMES PER DAY ?? DME Unchanged Durable Medical Equipment (Pen [place], 31 G x 8 mm BD Ultra Fine III) See instructions T2DM E11.9 for injecting insulin 4x daily ?? DME Unchanged Famotidine (Pepcid 20 mg oral tablet) 2 tab(s) Oral Twice a day 09/26/23 9pm Unchanged Insulin Glargine (Lantus Solostar Pen 100 units/ mL subcutaneous solution) 48 unit(s) Subcutaneous Injection Daily 09/27/23 9am Unchanged Levothyroxine (levothyroxine 0.05 mg oral tablet) 1 tab(s) Oral Daily 09/27/23 9am Unchanged Magnesium Oxide (magnesium oxide 400 mg oral tablet) 1 tab(s) Oral Daily 09/27/23 9am Unchanged Metoprolol (metoprolol 50 mg oral tablet) 1 tab(s) Oral Twice a day 09/26/23 9pm Unchanged Miscellaneous Rx (COMFRT TOUCH PAD ALC PREP) See instructions USE DIRECTED TO CLEAN AREA 5 TIMES A DAY ?? Unchanged Miscellaneous Rx (Freestyle alo 2 14-day sensors) See instructions Use to check BG up to 5 times/ day, change every 14 days, wear on the back of the upper arm ?? Unchanged Miscellaneous Rx (Freestyle alo 2 reader) See instructions Use to check BG up to 5 times/ day ?? Unchanged Miscellaneous Rx (PLASTIC URINAL) See instructions USE DIRECTED AT HOME ?? Unchanged Multivitamin (Tab-A-Devon oral tablet) 1 tab(s) Oral Daily 09/27/23 9am Unchanged Pantoprazole (Protonix 40 mg oral delayed release tablet) 1 tab(s) Oral Daily 09/27/23 9am Unchanged semaglutide (Ozempic 2 mg/ 3 mL (0.25 mg or 0.5 mg dose) subcutaneous solution) 0.5 Milligram Subcutaneous Injection Every Thursday per schedule Unchanged Tizanidine (tiZANidine 4 mg oral tablet) 1 tab(s) Oral Daily at Bedtime 09/26/23 9pm Pharmacy Information [facility]: [address] [place] [address] [phone] Prescription Given During Visit Perphenazine (perphenazine 8 mg oral tablet) - 8 mg, By Mouth, 2 times a day, # 60 tablet, 3 Refills, [facility], [facility] [address] [place] [address] [phone]?? Laboratory Results Below is a partial list of the most recent Laboratory test results done prior to this discharge. You may have had other tests and procedures not included in this list. Please discuss all test resultswith your provider. Est Creatinine Clearance - 95.02 mL/min (09/25/2023) BUN (09/25/2023) ???BUN - 12 mg/dL CBC (09/25/2023) ???WBC - 1.8 k/mm3???RBC - 2.68 m/mm3???Hgb - 7.5 Gm/dL???Hct - 23.5 %???MCV - 87.7 femtoliters???MCH - 28.0 pg???MCHC - 31.9 g/dL???Platelet Count - 12 k/mm3???RDW-SD - 70.3 femtoliters???MPV - NOT MEASURED???Nucleated RBC (Automated) - 1.1 #/100 WBC'S???Abs. NRBC - 0.0 k/mm3 Comprehensive Metabolic Panel (09/24/2023) ???Sodium - 136 mmol/L???Potassium - 4.3 mmol/L???Chloride - 99 mmol/L???Bicarbonate Level - 21 mmol/L???Anion Gap - 16???Glucose Level - 273 mg/dL???BUN - 8 mg/dL???Creatinine-Blood - 0.73 mg/dL???Estimated GFR Creatinine - 105 ML/MIN/1.73 M2???Calcium - 9.7 mg/dL???Protein, Total - 6.8 Gm/dL???Alb umin - 4.0 Gm/dL???AG Ratio - 1.4???Alkaline Phosphatase - 87 units/L???AST (SGOT) - 21 units/L???ALT (SGPT) - 17 units/L???Bilirubin, Total - 0.9 mg/dL CPK Total Only (09/25/2023) ???CK, Total - 168 units/L Creatinine (09/25/2023) ???Creatinine-Blood - 0.92 mg/dL???Estimated GFR Creatinine - 96 ML/MIN/1.73 M2 CRP (09/25/2023) ???C-Reactive Protein - 2.9 mg/dL DIFFERENTIAL (09/25/2023) ???Abs. Neut - 0.0 k/mm3???Abs. Lymph - 1.8 k/mm3???Abs. [place] - 0.0 k/mm3???Abs. Eo - 0.0 k/mm3???Abs. Baso - 0.0 k/mm3???Neut % - 0.9 %???Lymph % - 91.1 %???[place] % - 1.8 %???Eos % - 0.0 %???Baso % -0.9 %???Atypical Lymph % - 5.3 %???RBC Morphology - MODERATE???Platelet Estimate - DECREASED Electrolytes (09/25/2023) ???Sodium - 138 mmol/L???Potassium - 4.6 mmol/L???Chloride - 103 mmol/L???Bicarbonate Level - 25 mmol/L???Anion Gap - 10 ESR (09/25/2023) ???Sed Rate - 38 mm/hr GLUCOSE POC (09/25/2023) ???Glucose, POC - 179 mg/dL PERIPHERAL BLOOD SMEAR REVIEW (09/25/2023) ???Peripheral Blood Smear Review Interp. - Reviewed by pathologist. PT (INR) (09/24/2023) ???INR - 1.2???Protime (PT) - 13.0 seconds PTT (09/24/2023) ???APTT - 27.8 seconds TSH WITH REFLEX TO FT4 (09/24/2023) ???TSH - 1.68 uIU/mL Type and Screen (09/24/2023) ???Blood Type - A Positive???Antibody Screen - Negative Allergies (NKA means No Known Allergies) Clozaril metformin??(DIARRHEA) Problems Active Problems??(8) Bipolar?? Diabetes mellitus type 2?? Hypertension?? Hypothyroidism?? Obesity?? Pancytopenia?? Pulmonary nodule, right?? Schizophrenia?? Education Materials Below is the list of Educational Leaflet Providered with your Discharge Instructions. [employer] Patient Education - Anemia, Type Not Specified (Adult)?? [employer] Patient Education - Pediatric Cancer: Parenting the Healthy Child?? [employer] Patient Education - Bipolar Disorder?? Valuables and Belongings I fully understand and agree that [facility] accepts no responsibility for all my personal [...] to send valuables and belongings home. ?? Date for Pt to Sign Valuables/Belongings: 09/24/23 15:03:00 ?? Other Discharge Information ? Pulmonary Rehab Status?? Pulmonary Rehab Discharge [...] are strongly encouraged to quit. Please call [facility] [employer] Link at [phone] or [phone] ([phone]) or log in to [email or web address] for referrals to smoking cessation programs. ?? 984 Suicide & Crisis Lifeline is available 24/11 if you or someone you know needs to find a reason to keep living. By calling 601 you'll be connected to a skilled, trained counselor at a crisis center in your area. INPATIENT DISCHARGE INSTRUCTIONS SIGNATURE PAGE EUGENIO WHITE Location:[facility] Registration Date and Time:09/24/2023 12:56 EDT Primary Care Physician: Papi GONSALVES, Mando Bearden, Attending Physician: Malinda Reich DO, I PATSY EUGENIO, have received the above patient education materials/instructions and have verbalized understanding. If ambulance or transport services are being used I further acknowledge being given a choice of service. ?? If you need to contact me, please call me at this number: . Patient/Credit Rating Checker Name: Patient/Credit Rating Checker Signature: Relationship to Patient: Witness Name/Signature: Date: * Sujatha Oneil DO: PERFORM Event Display: Patient Education Leaflets Authored Date: [id number] Anemia, Type Not Specified (Adult) ?? [id number] Anemia, Type Not Specified (Adult) Red blood cells carry oxygen to the tissues of your body. Anemia is a condition in which you have too few red blood cells. You need iron to make red blood cells. The most common cause of anemia is not having enough iron. This may be because of: ??? Loss of blood. This can be caused by heavy menstrual periods. It can also be caused by bleedingfrom the stomach or intestines. ??? Major surgery or physical trauma ? Certain medicines or treatments, such as chemotherapy ??? Not??eating enough foods that contain iron. Other causes of anemia include certain vitamin deficiencies, chronic kidney disease, and other chronic illnesses. Anemia makes you feel tired and run down. When anemia becomes severe, your skin becomes pale. You may feel short of breath or have chest pain after physical activity. Other symptoms include: ??? Headaches ??? Chest pain or shortness of breath ??? Fast or irregular heartbeat ??? Pounding orwhooshing in your ears ??? Dizziness ??? Leg cramps with physical activity ??? Drowsiness Home care Follow these guidelines when caring for yourself at home: ??? Don???t overexert yourself. ??? Eat foods rich in iron, such as beef, poultry, fish, dark green leafy vegetables, legumes, and nuts. ??? Talk with your healthcare provider before traveling by air or to high altitudes. ?? Follow-up care Follow up with your healthcare provider, or as advised. You may need other blood tests to find out the exact cause of your anemia. If you had testing done today, it may take several days to get all of the results. You can follow up with your provider to get the results. ?? Call 911 Call 911 if any of the following occur: ??? Shortness of breath or chest pain ??? Dizziness or fainting ??? Vomiting blood or passing red- or black-colored stool ?? Last Reviewed Date: 2021 ?? [employer]. All rights reserved. This information is not intended as a substitute for professional medical care. Always follow your healthcare professional's instructions. ?? * Sujatha Oneil DO: PERFORM Event Display: Patient Education Leaflets Authored Date: [id number] Pediatric Cancer: Parenting the Healthy Child ?? Pediatric Cancer: Parenting the Healthy Child - Video When Minerva and Zach???s son, John, was diagnosed with cancer at age 4, their daughter, Arianne, was 10. How can you be a strong parent for both children? Minerva and Zach explain. To view the video go to this web address: [email or web address] Or, scan this QR code with your smart phone ?? [employer]. All rights reserved. This information is not intended as a substitute for professional medical care. Always follow your healthcare professional's instructions. ?? * Sujatha Oneil DO: PERFORM Event Display: Patient Education Leaflets Authored Date: [id number] Bipolar Disorder ?? [id number] Bipolar Disorder Bipolar disorder is a serious, life-altering illness. It causes strong mood swings between depression and chris. It used to be called manic depression. The mood swings are different from the normal ups and downs people have in their lives. They are more severe and last longer. They can seriously interfere with work and relationships. These episodes are changes from usual moods and behavior. They can be mild, or drastic and explosive. The time between feelings of depression and chris varies with each person. It can be weeks, month, or even years. ??? In a manic episode, you may think fast and do things quickly. It may seem like you are getting a lot done. It may feel very good at first. But in the extreme, chris can lead to a lifestyle that is disorganized and chaotic. You may take part in risky behavior. Examples are spending sprees, sexual acting-out, or drug use. In later stages, you may have no interest in food. You may not be able tosleep for days at a time. Your speech may speed up and become hard to understand. You may appear toothers as if you are in your own world. ??? In a depressive episode, you may feel a lack of interest in normal activities. Sometimes you feel sadness or guilt without any clear reason. Your thinking may become slow. You may also lack energy or good concentration, or feel hopeless. Some people have thoughts of harming themselves at this stage. Thoughts can even turn to suicide. You may feel OK between these phases. This does not mean that the illness is gone. People with thisdisorder will often have to treat it all their life. Correct use of medicines and ongoing medical and mental health support can greatly ease symptoms. They can enhance your quality of life. The exact cause of bipolar disorder is unknown. But there is a genetic link that makes a person more likely to get it. Using illegal drugs such as speed (amphetamine) and cocaine raises a person's risk for this illness. Home care Here is what you can do at home: ??? Ongoing care and support can help you manage this disease. Find a healthcare provider and therapist who meet your needs. Seek help right away when you feel like you may be heading into either a manic episode or a depressive state. ??? Take your medicine as prescribed. Get regular blood work to check the levels of medicine in your body. Do this??even if you think you don???t need to do it. ??? Don't change or stop taking your medicine unless your healthcare provider says it is OK to do so. Don't share or use another person's medicines. ??? Tell all your healthcare providers about all the prescriptions, tssx-tho-fuyucre medicines, and supplements you take.? ?Certain supplements interact with medicines. They may cause dangerous side effects. You can also ask your pharmacist about medicine interactions before starting any new medicine or supplement. ??? Talk with your family and trusted friends about your thoughts and feelings. Ask them to help you notice behavior changes early. You can then get help and have your medicines adjusted, if needed. When you are feeling well, make a management plan for a trusted friend or family member to help you during hard times. For example, you can ask them to hold your credit cards for you if you overspend during a chris. Or they can get emergency help for you if your depression leads to suicidal thoughts. Ifyour illness is severe, consider giving trusted people access to your healthcare providers. They can then work together to keep you safe. ??? Don't drink alcohol or use illegal drugs. They can bring on an episode and make it worse. ??? If your life is severely affected by this illness, the Americans with Disabilities Act (ADA) may provide help. The ADA protects people with chronic physical and mental health problems. Contact your local ADA office for help if you are having trouble keeping jobs,managing workplace issues, or caring for yourself because of your bipolar disorder. The U.[place]. Department of Justice has a toll-free NGDATA information line at 652-494-7856 (voice) or [phone] (TTY). It can help you find a local office. Or??go to www.Netzoptiker.gov for more information. ??? Join an in-person or virtual support group for people with mental health problems. ?? Follow-up care Follow up with your healthcare provider or therapist as advised. They can help you find ways to improve your life. ?? Call or text [phone] When you call or text [phone], you will be connected to trained crisis counselors at the Suicide Prevention Lifeline. An online chat option is also available. Lifeline is free and available 24/11. 988 counselors will work closely with [facility] to get you the care you need. Call or text [phone] if you have: ??? Suicidal thoughts, a plan to harm yourself, and the means to do so ??? Serious thoughts of hurting someone else ??? Trouble breathing ??? Confusion ??? Drowsiness ortrouble wakening ??? Fainting or loss of consciousness ??? Rapid heart rate, very low heart rate, or a new irregular heart rate ??? Seizure ??? New chest pain that becomes more severe, lasts longer, or spreads into your shoulder, arm, neck, jaw, or back ?? When to seek medical advice Call your healthcare provider right away if any of these happen: ??? Feeling like your symptoms aregetting worse (depression, agitation, or excessive energy) ??? Not eating or sleeping for more than48 hours ??? Feeling out of control (racing thoughts, paranoid thoughts, hallucinations, or poor concentration) ??? Feeling like you want to harm yourself or another ??? Being unable to care for yourself ?? Last Reviewed Date: 2021 ?? 1081-6278 [employer]. All rights reserved. This information is not intended as a substitute for professional medical care. Always follow your healthcare professional's instructions. ?? Patient Care team information Care Team Personnel Name: Mando Turpin MD Position: Reference Physician Member Role: PCP Address: Address: [address] [place] [address] [address] [place] [address]- Name: Mona Gould RN Position: S RN Member Role: Primary Care Nurse Name: Benny Davis LPN Position: [facility] RN Member Role: Primary Care Nurse Name: Sheyla Bates RN Position: [facility] Onco RN Member Role: Primary Care Nurse Name: Jayson Beltran RN Position: [facility] RN Member Role: Primary Care Nurse Name: Jeremiah Ocasio RN Position: [facility] RN Member Role: Primary Care Nurse Name: Gualberto Sánchez RN Position: [facility] RN Member Role: Primary Care Nurse Name: Radhika Henley RN Position: [facility] RN Member Role: Primary Care Nurse Name: Michael Marsh RN Position: [facility] RN Member Role: Primary Care Nurse Name: Lidya Camacho RN Position: [facility] RN Member Role: Primary Care Nurse Name: Gali Wisdom RN Position: [facility] RN Member Role: Primary Care Nurse Name: Leandro Gaston RN Position: [facility] RN Member Role: Primary Care Nurse Name: Caroyln Dean RN, I Position: [facility] RN Member Role: Primary Care Nurse Care Team Related Persons Name: YOANDY HARRINGTON Address: [address] [address] Name: THANIA WHITE
[2023-09-30 09:01] LABS: Hematocrit 24.1 % (42.0-52.0); Lymphocytes Absolute Auto 0.5 X10*3/uL (1.2-4.9); Lymphocytes Percent Auto 64.1 % (20-40); MANUAL DIFF FLAG SCAN; Mean Corpuscular HGB Conc 33.2 g/dl (31.0-36.0); Mean Corpuscular Hemoglobin 28.9 pg (27.0-33.0); Monocytes Absolute Auto 0.3 X10*3/uL (0.1-1.2); Monocytes Percent Auto 32.1 % (2-11); Neutrophils Percent Auto 3.8 % (45-73); Red Blood Count 2.77 X10*6/uL (4.60-5.80); Red Cell Distribution Width 21.8 % (11.0-16.0); SCAN SMEAR FLAG 1
[2023-09-30] MEDS: ondansetron HCL 4 MG/2 ML VIAL IVPUSH (09:01)
[2023-09-30 09:06] LABS: Platelet Count 11 X10*3/uL (160-400); White Blood Count 0.8 X10*3/uL (4.8-10.8)
[2023-09-30 09:11] LABS: D Dimer High Sensitivity 403 NG/ML
[2023-09-30 09:13] LABS: Alanine Aminotransferase 20 U/L (0-40); Albumin Level 3.9 g/dL (3.5-5.0); Alkaline Phosphatase 80 U/L (39-117); Anion Gap 14 (12-20); Aspartate Amino Transferase 19 U/L (5-37); Bilirubin Direct 0.5 mg/dL (0.0-0.5); Bilirubin Total 1.1 mg/dL (0.0-1.0); Blood Urea Nitrogen 6 mg/dL (9-16); Calcium 9.7 mg/dL (8.4-10.2); Carbon Dioxide 21 mmol/L (22-29); Chloride 105 mmol/L (96-108); Creatinine Clr Calc Pharmacy 91.2; Estimated Glomerular Filt Rate > 60; Glucose Random 311 mg/dL (60-115); Lipase 15 U/L (8-78); Magnesium 1.6 mg/dL (1.6-2.6); Potassium 4.2 mmol/L (3.3-5.1); Sodium 136 mmol/L (135-145); Total Protein 7.5 g/dL (6.5-8.0)
[2023-09-30 09:19] LABS: B Type Natriuretic Peptide 19 pg/mL (<100)
--- NOTE | 2023-09-30 09:19 | ED_ITS ---
HPI - Chest Pain General Chief Complaint: Chest Pain Stated Complaint: BLE CRAMPING,DIZZY,WEAK,VOMITING,HIGH BP 200/98 Time Seen by Provider: 09/30/23 08:53 Source: patient and old records reviewed Mode of arrival: EMS Limitations: other (poor historian - intermittently agitated) History of Present Illness ED Provider: JUMANA HPI narrative: 58 yo male with PMH of schizophrenia, obesity, JUANITA, BPH, thrombocytopenia, MDS that he has refused treatment for despite warnings he could progress to AML etc, renal cell carcinoma, GERD, HLD, HTN, DM, hypothyroidism here with c/o overall body aches last night not feeling well with cough, shortness of breath, chest tightness, weakness. He reports he did not want treatment for his MDS and had refused all therapy but now that I told him his labs are abnormal he is scared and wants transfusions. He denies falls. He admits he never followed up or got therapy. Found to be hypoxic in 80s on arrival. MD complaint: chest pain Onset (ago): day(s) (last night) Timing of current episode: constant Prior episodes: No Onset: during rest Pain location: substernal Pain radiation: none Severity: moderate Quality: aching Relieving factors: nothing Exacerbating factors: inspiration and movement Context: other (hx of MDS untreated) Related Data Home Medications ?Medication ?Instructions ?Recorded ?Confirmed blood sugar diagnostic #10 ea 03/15/20 09/04/23 lancets 28 gauge #100 ea 03/15/20 09/04/23 perphenazine 8 mg tablet 8 mg PO TID 02/26/22 09/04/23 bismuth subsalicylate 525 mg/15 mL 525 mg PO DAILY PRN INDEGESTION 04/29/22 09/04/23 oral suspension clonazepam 0.5 mg tablet (Klonopin) 0.5 mg PO BID 04/06/23 09/04/23 perphenazine 4 mg tablet 4 mg PO TID 04/06/23 09/04/23 aspirin 81 mg chewable tablet 81 mg PO QAM 07/13/23 09/04/23 sennosides 8.6 mg tablet (Senna 8.6 mg PO BEDTIME 07/13/23 09/04/23 Lax) Previous Rx's ?Medication ?Instructions ?Recorded pen needle, diabetic 31 gauge x #1,200 ea 03/12/21 5/16 QUAD CANE #1 ea 07/31/21 trazodone 50 mg tablet 150 mg (3 x 50 mg) PO BEDTIME 30 05/09/22 days #90 tabs acetaminophen 500 mg tablet 500 mg PO Q6H PRN fever or pain 30 01/01/23 (Tylenol Extra Strength) days #120 tabs ibuprofen 600 mg tablet 600 mg PO TID PRN for pain #90 tabs 01/28/23 pen needle, diabetic 33 gauge x #100 ea 02/02/2305/07 (Comfort EZ Pen [place]) Grab bar #2 ea 02/03/23 CANE (regular) #1 ea 02/11/23 lactulose 10 gram/15 mL oral 15 ml PO BEDTIME PRN severe 03/30/23 solution constipation #237 mL metoprolol tartrate 50 mg tablet 50 mg PO BID #180 tabs 05/12/23 lisinopril 5 mg tablet 5 mg PO DAILY #90 tabs 05/13/23 famotidine 20 mg tablet 40 mg (2 x 20 mg) PO BID 30 days 05/18/23 #120 tabs semaglutide 0.25 mg or 0.5 mg (2 0.5 mg (0.736 mL) subcut QWEEK #3 06/30/23 mg/3 mL) subcutaneous pen injector mL (Ozempic) desmopressin 0.1 mg tablet 0.2 mg (2 x 0.1 mg) PO BEDTIME #90 07/01/23 tabs naproxen 250 mg tablet 250 mg PO Q8-12H PRN pain (scale 07/04/23 score 4-6) #14 tabs multivitamin 1 tab PO DAILY #90 tabs 07/07/23 pantoprazole 40 mg tablet,delayed 40 mg PO DAILY 30 days #30 tabs 07/13/23 release levothyroxine 50 mcg tablet 50 mcg PO QAM #90 tabs 07/14/23 atorvastatin 10 mg tablet 10 mg PO BEDTIME #90 tabs 07/15/23 dextromethorphan-guaifenesin 10 10 ml PO Q4-6H PRN cough #500 mL 08/27/23 mg-100 mg/5 mL oral syrup (Tussin DM Clear) amoxicillin 875 mg-potassium 1 tab PO BID 10 days #20 tabs 09/04/23 clavulanate 125 mg tablet cholecalciferol (vitamin D3) 25 25 mcg PO DAILY #30 tabs 09/07/23 mcg (1,000 unit) tablet (Vitamin D3) tizanidine 4 mg tablet 4 mg PO BEDTIME for low back pain 09/07/23 #30 tabs docusate sodium 100 mg capsule 200 mg (2 x 100 mg) PO BID 30 days 09/12/23 #120 caps insulin glargine 100 unit/mL (3 48 unit (0.48 mL) subcut DAILY #15 09/16/23 mL) subcutaneous pen (Lantus mL Solostar U-100 Insulin) magnesium oxide 400 mg PO DAILY 30 days #30 tabs 09/19/23 Allergies Allergy/AdvReac Type Severity Reaction Status Date / Time clozapine [From Clozaril] Allergy Mild ringing in Verified 09/30/23 08:39 ears, pain, leukopenia trifluoperazine Allergy Tongue Verified 09/04/23 13:33 [From Stelazine] Swelling Review of Systems 2 Review of Systems: Constitutional : No Weight loss, No Fever, pos Chills ENT/Mouth : No sore throat, No Rhinorrhea Eyes: No Eye Pain, No Swelling Cardiovascular : pos Chest Pain, pos SOB, no Dyspnea on Exertion, No Orthopnea, No Edema, No Palpitations Respiratory : pos Cough, No Sputum Gastrointestinal : pos Nausea, No Vomiting, No Diarrhea, No abdominal Pain, No Hematochezia, No Melena Genitourinary : No Dysuria, No Urinary Frequency Musculoskeletal : No joint pain, pos Myalgias, No Joint Swelling Skin : No Skin Lesions, No rash Neuro : pos Weakness, No Numbness, No Dizziness, No Headache Psych : No Anxiety/Panic, No Depression Heme/Lymph: No Bruising, No Lymphadenopathy Endocrine : No Polyuria, No Polydipsia All other systems reviewed and are negative PMFSH Past Medical History Attestation statement: The following information was validated with the patient. Source: old records reviewed Medical History Myelodysplastic syndrome with excess blasts Facet arthritis of lumbar region Thrombocytopenia Hypomagnesemia Obesity (BMI 30-39.9) On beta evaristo at home Lung nodule Screening for STD (sexually transmitted disease) Obesity (BMI 30-39.9) Smoker Schizophrenia Nocturnal enuresis Anxiety Midline low back pain Acquired hypothyroidism GERD without esophagitis Constipation Pure hypercholesterolemia Benign essential hypertension Diabetes mellitus Obstructive sleep apnea Dyspnea Obesity (BMI 35.0-39.9 without comorbidity) Nicotine dependence, cigarettes, uncomplicated Schizoaffective disorder Insulin dependent diabetes mellitus Hypothyroidism Hypertension, essential Hyperlipidemia Surgical History H/O colonoscopy (~10/12/20) Hx of facial fracture repair History of left inguinal hernia repair Family History Family History Father CVD (cardiovascular disease) Mother CVD (cardiovascular disease) Diabetes Sister Colon polyps Social History Social History Household Members: Other Household Members Other:: lives in a supported apartment problem Housing: Apartment Housing Other:: lives in a supported apartment problem Do you presently have visiting nurse or other home services: No Alcohol intake: former Patient Tobacco Use Status: Current someday Tobacco user Tobacco use type: Cigarette and Cigar Cigarette Packs Per Day: 0.75 Cigarettes Per Day: 40 Years Smoked: 30 Smoked in Last 30 Days: No e-Cigarette/Vaping Use: Never Used Second Hand Smoke Exposure: No Use of substances other than those prescribed or required for medical reasons: No Advance Directives: No Advance Directives Information Provided: Yes service: No Current occupational status: disabled Sexual orientation: Straight/Heterosexual Cognitive needs: No Hearing needs: No Vision needs: No Physical Exam 2 Vital Signs: Vital Signs: Last Vital Signs Temp 98.8 F 09/30/23 15:58 Pulse 76 09/30/23 15:58 Resp 16 09/30/23 15:58 BP 157/79 H 09/30/23 15:58 Pulse Ox 98 09/30/23 15:36 O2 Del Method Room Air 09/30/23 15:36 O2 Flow Rate 2 09/30/23 12:19 BMI result Body Mass Index 27.7 Appearance: Alert. Oriented X3. anxious mild acute distress. Eyes: Pupils equal, round and reactive to light. ENT: Pharynx normal. atraumatic Neck: Normal inspection. Neck supple. CVS: tachycardic heart rate and rhythm. Pulses normal. Respiratory: No respiratory distress. Breath sounds bases coarse and diminished Abdomen: Soft and nontender. obese Skin: Skin warm and dry. pale skin color. Normal skin turgor. Extremities: No lower extremity edema. Neuro: Oriented X 3. No motor deficit. No sensory deficit. Course Course Course Narrative: now c/o headache IV morphine ordered given platelets CT head ordered for spontaneous hemorrhage Reevaluation(s) Reevaluation #1: repeat lactic acid flat Medications Administered Discontinued Medications Generic Name Dose Route Start Last Admin Trade Name Aleksandra PRN Reason Stop Dose Admin Acetaminophen 650 mg 09/30/23 10:01 09/30/23 10:11 Acetaminophen 325 Mg Tablet PO 09/30/23 10:02 650 mg ONCE ONE Administration Acetaminophen 650 mg 09/30/23 14:31 09/30/23 14:58 Acetaminophen 325 Mg Tablet PO 09/30/23 14:32 650 mg ONCE ONE Administration Cefepime HCl 1 gm/ Sodium 50 mls @ 100 mls/hr 09/30/23 09:06 09/30/23 11:05 Chloride IV 09/30/23 09:35 Infused ONCE ONE Infusion Sodium Chloride 500 mls @ 500 mls/hr 09/30/23 09:25 09/30/23 12:18 Ns IV 09/30/23 10:24 Infused .Q1H ONE Infusion Sodium Chloride 100 mls @ 100 mls/hr 09/30/23 09:37 09/30/23 16:00 Ns IV 09/30/23 10:36 Infused ONCE ONE Infusion Iohexol 100 ml 09/30/23 11:50 09/30/23 11:55 Iohexol 350 Mg/Ml 100 Ml Infus..Btl IV 09/30/23 11:51 65 ml ONCE ONE Administration Morphine Sulfate 2 mg 09/30/23 13:05 09/30/23 13:13 Morphine Sulfate 2 Mg/Ml Cartridge IVPUSH 09/30/23 13:06 2 mg ONCE ONE Administration Protocol Ondansetron HCl 4 mg 09/30/23 08:37 09/30/23 09:01 Ondansetron Hcl 4 Mg/2 Ml Vial IVPUSH 09/30/23 08:38 4 mg ONCE ONE Administration Medical Decision Making Medical Decision Making MDM Narrative: 58 yo male with PMH of schizophrenia, obesity, JUANITA, BPH, thrombocytopenia, MDS that he has refused treatment for despite warnings he could progress to AML etc, renal cell carcinoma, GERD, HLD, HTN, DM, hypothyroidism here with c/o overall not feeling well with chest tightness at this time he now notes he wants treatment and transfusions he has a low grade temp, hypoxia and low platelets on exam - no head trauma or headache reported will obtain labs cultures, start on fluids, empiric cefepime given neutropenia, CTA for PE, troponin x 1, transfuse platelets and likely admit. Differential Diagnosis Differential Diagnoses: The differential diagnosis associated with the presentation includes MDS, neutropenia, viral syndrome, pneumonia, VTE Admission/Observation Consideration of admission/observation: Escalation of care including admission/observation considered admit given hypoxia, lab derangements neutropenic fever concerns Consult Healthcare Provider Management of the patient was discussed with: Hospitalist (will admit) Lab Data MDM Lab Attestation statement: I reviewed the patient's lab results. 09/30/23 08:54 09/30/23 08:55 Labs: Lab Results 09/30/23 09/30/23 09/30/23 Range/Units 08:54 08:55 09:01 WBC 0.8 L* (4.8-10.8) X10*3/uL RBC 2.77 L D (4.60-5.80) X10*6/uL Hgb 8.0 L D (14.0-18.0) g/dl Hct 24.1 L D (42.0-52.0) % MCV 87.0 (80.0-98.0) fL MCH 28.9 (27.0-33.0) pg MCHC 33.2 (31.0-36.0) g/dl RDW 21.8 H (11.0-16.0) % Plt Count 11 L* D (160-400) X10*3/uL MPV Not Reportable Immature Gran % (Auto) 0.0 (0.0-0.4) % Neut % (Auto) 3.8 L (45-73) % Lymph % (Auto) 64.1 H (20-40) % [place] % (Auto) 32.1 H (2-11) % Eos % (Auto) 0.0 (0-4) % Baso % (Auto) 0.0 (0-2) % Lymph # (Auto) 0.5 L (1.2-4.9) X10*3/uL [place] # (Auto) 0.3 (0.1-1.2) X10*3/uL Eos # (Auto) 0.0 (0.0-0.4) X10*3/uL Baso # (Auto) 0.0 (0.0-0.2) X10*3/uL Abs Immat Gran (auto) 0.00 (0.00-0.03) X10*3/uL Absolute Neuts (auto) 0.0 L (2.0-8.3) x10*3/uL Absolute Nucleated RBC 0.000 (0.0-0.012) X10*3/uL Nucleated RBC % (auto) 0.0 (0.0-0.2) /100WBC Smear Tech's Comments VERIFIED D-Dimer High Sensitivty 403 NG/ML Sodium 136 (135-145) mmol/L Potassium 4.2 (3.3-5.1) mmol/L Chloride 105 (96-108) mmol/L Carbon Dioxide 21 L (22-29) mmol/L Anion Gap 14 (12-20) BUN 6 L (9-16) mg/dL Creatinine 0.90 (0.5-1.4) mg/dL Estim Creat Clear Calc 91.2 Estimated GFR > 60 Random Glucose 311 H (60-115) mg/dL Lactic Acid 2.4 H* (0.5-2.0) mmol/L Lactic Acid F/U @ 2Hr (0.5-2.0) mmol/L Calcium 9.7 (8.4-10.2) mg/dL Magnesium 1.6 (1.6-2.6) mg/dL Total Bilirubin 1.1 H (0.0-1.0) mg/dL Direct Bilirubin 0.5 (0.0-0.5) mg/dL AST 19 (5-37) U/L ALT 20 (0-40) U/L Alkaline Phosphatase 80 (39-117) U/L Troponin I High Sens < 2.7 (<3.5-35.0) ng/L B-Natriuretic Peptide 19 (<100) pg/mL Total Protein 7.5 (6.5-8.0) g/dL Albumin 3.9 (3.5-5.0) g/dL Lipase 15 (8-78) U/L Influenza Type A (PCR) NEGATIVE (Negative) Influenza Type B (PCR) NEGATIVE (Negative) RSV RNA Qual (PCR) NEGATIVE (Negative) SARS-CoV-2 RNA (RT-PCR) NEGATIVE (Negative) Blood Type A Positive Antibody Screen NEGATIVE 09/30/23 Range/Units 12:24 WBC (4.8-10.8) X10*3/uL RBC (4.60-5.80) X10*6/uL Hgb (14.0-18.0) g/dl Hct (42.0-52.0) % MCV (80.0-98.0) fL MCH (27.0-33.0) pg MCHC (31.0-36.0) g/dl RDW (11.0-16.0) % Plt Count (160-400) X10*3/uL MPV Immature Gran % (Auto) (0.0-0.4) % Neut % (Auto) (45-73) % Lymph % (Auto) (20-40) % [place] % (Auto) (2-11) % Eos % (Auto) (0-4) % Baso % (Auto) (0-2) % Lymph # (Auto) (1.2-4.9) X10*3/uL [place] # (Auto) (0.1-1.2) X10*3/uL Eos # (Auto) (0.0-0.4) X10*3/uL Baso # (Auto) (0.0-0.2) X10*3/uL Abs Immat Gran (auto) (0.00-0.03) X10*3/uL Absolute Neuts (auto) (2.0-8.3) x10*3/uL Absolute Nucleated RBC (0.0-0.012) X10*3/uL Nucleated RBC % (auto) (0.0-0.2) /100WBC Smear Tech's Comments D-Dimer High Sensitivty NG/ML Sodium (135-145) mmol/L Potassium (3.3-5.1) mmol/L Chloride (96-108) mmol/L Carbon Dioxide (22-29) mmol/L Anion Gap (12-20) BUN (9-16) mg/dL Creatinine (0.5-1.4) mg/dL Estim Creat Clear Calc Estimated GFR Random Glucose (60-115) mg/dL Lactic Acid (0.5-2.0) mmol/L Lactic Acid F/U @ 2Hr 1.5 (0.5-2.0) mmol/L Calcium (8.4-10.2) mg/dL Magnesium (1.6-2.6) mg/dL Total Bilirubin (0.0-1.0) mg/dL Direct Bilirubin (0.0-0.5) mg/dL AST (5-37) U/L ALT (0-40) U/L Alkaline Phosphatase (39-117) U/L Troponin I High Sens (<3.5-35.0) ng/L B-Natriuretic Peptide (<100) pg/mL Total Protein (6.5-8.0) g/dL Albumin (3.5-5.0) g/dL Lipase (8-78) U/L Influenza Type A (PCR) (Negative) Influenza Type B (PCR) (Negative) RSV RNA Qual (PCR) (Negative) SARS-CoV-2 RNA (RT-PCR) (Negative) Blood Type Antibody Screen Independent Interpretation I performed an independent interpretation of an: EKG and CT Scan (no PE, no ICH noted) Interpretation: Rate: 105 Rhythm: sinus tachycardia with 1st degree AVB [place]: normal Normal P waves. Normal KRYSTIAN. Normal QRS complex. ST T wave : normal no ANA MARIA qTC: 422 prior studies: no acute ischemia The study has been interpreted contemporaneously by me. . Radiology Impression Discussion of test interpretation with radiology: I have reviewed the radiologist's reading. Independent Historian Clinical information obtained from an independent historian. History obtained from or confirmed by: EMS External Record Review External record reviewed: Inpatient record and Outpatient record Critical Care Time Critical Care Time Critical Care Time: Yes Total Critical Care Time: 75 Attestation: review of records, transfusion, empiric fluids, repeat labs, empiric antibiotics, discussion of goals of care regarding illness with patient I attest to this time spent taking care of the patient Discharge Plan Discharge Clinical Impression: Hypoxia, Thrombocytopenia, Weakness, Acidosis, lactic Chest pain Qualifiers: Chest pain type: precordial pain Qualified Code(s): R07.2 - Precordial pain Neutropenia Qualifiers: Neutropenia type: unspecified Qualified Code(s): D70.9 - Neutropenia, unspecified Patient Disposition: Admitted As Inpatient Print Language: Andorran
[2023-09-30 09:24] LABS: Troponin-I High Sensitivity < 2.7 ng/L (<3.5-35.0)
[2023-09-30 09:26] LABS: Lactic Acid 2.4 mmol/L (0.5-2.0)
--- NOTE | 2023-09-30 09:30 | PC.NURSE ---
Pt presented by EMS to ER, reports chest pain and pressure starting last night, substernal radiating to his back, 02/10. Pt also reports symptoms of intermittent dizziness, SOB, nausea w/ dry heaving and general malaise. Pt is alert and oriented, breathing slightly labored and elevated, skin pale. Pt noted to be 85% on RA, improved to 92-95% on 3L NC. Placed on bedside monitoring tech, sinus tachycardia. Other vitals stable. MD alerted of pts status, orders placed and followed.
[2023-09-30 09:36] LABS: SLIDE REVIEW VERIFIED
--- NOTE | 2023-09-30 09:36 | PC.NURSE ---
Pt noted to be breathing less labored with O2 therapy. Sats improved. Pt noted to be anxious
[2023-09-30 09:42] LABS: Influenza A PCR NEGATIVE (Negative); Influenza B PCR NEGATIVE (Negative); Resp Syncy Virus RNA Qual PCR NEGATIVE (Negative); SARS COV2 PCR INHOUSE NEGATIVE (Negative)
--- NOTE | 2023-09-30 09:45 | MHC.EDTECH ---
refused tech to obtain second set of blood cultures.
--- NOTE | 2023-09-30 10:03 | PC.NURSE ---
MD orders to give ABX without second culture, pt very hard stick.
[2023-09-30] MEDS: cefEPime HCl 1 GM in 0.9 % Sodium Chloride 50 ML IV (10:04)
[2023-09-30] MEDS: 0.9 % Sodium Chloride 500 ML IV (10:05)
[2023-09-30] MEDS: Acetaminophen 325 MG TABLET 650 MG PO ×3 (10:11→21:14)
[2023-09-30 11:05] LABS: Reflex Lactate? Lactic Acid Added
--- NOTE | 2023-09-30 11:21 | MHC.EDTECH ---
patient stated that tech needed to leave the room because the previous blood draw was unsuccessful with the tech and the visitors said for that tech to get another tech. patient refusing labs which is the second lactic at this time.
[2023-09-30] MEDS: iohexoL 350 MG/ML 100 ML INFUS..BTL IV (11:55)
[2023-09-30 12:41] LABS: ~Lactic Acid-LAB USE ONLY 1.5 mmol/L (0.5-2.0)
[2023-09-30] MEDS: Morphine Sulfate 2 MG/ML CARTRIDGE IVPUSH (13:13)
--- NOTE | 2023-09-30 15:26 | PC.NURSE ---
Patient awake and alert to person and place. patient aware that it is 2023 but unsure of what today is. patient c/o intermittent chest pain, back pain, and headache. Platelets infusing per order and patient aware of plan for head CT. Patient agitated and forgetful at times but with explanation and education patient is calm and cooperative.
--- NOTE | 2023-09-30 15:40 | PC.NURSE ---
Order for platelets at 100ml/hr, increased to 300ml/hour at this time, verbal order from Dr. Lemos
--- NOTE | 2023-09-30 17:08 | P.HPHOSP_ITS ---
History of Present Illness Date of Service: 09/30/23 Attending physician on admission: Shahrzad Chamberlain Chief Complaint: diffuse pain 58-year-old male with history of insulin-dependent type 2 diabetes, hypothyroidism, hypertension, bipolar disorder, schizophrenia, and myelodysplastic syndrome (previously refused treatment, on monthly CBC monitoring) presents to the ED with generalized body pain and severe pain in the low back, generally feeling unwell and also complaining of nonproductive cough, shortness of breath, chest tightness, and weakness. There is also bilateral maxillary sinus pain. Denies fevers, chills, congestion, sore throat, abdominal pain, nausea, vomiting, diarrhea, urinary symptoms, lightheadedness, headache, syncope. He previously refused all treatments for MDS but states he is agreeable to transfusions if needed. On arrival, reportedly was hypoxic into the 80s but is now saturating 98% on room air. He is afebrile, vitals otherwise within normal limits. He is pancytopenia including significant neutropenia with WBC 0.8, ANC 0.0. H/H 8.0/24.1%, platelets 11. Renal function normal, electrolyte levels normal. Initial lactic acid 2.4, repeat 1.5. Hepatic function largely unremarkable. Troponin below detectable limits. BNP within normal limits. Respiratory panel pending. Head CT negative for any acute intracranial abnormality. CTA of the chest negative for PE which shows innumerable small semi solid pulmonary nodules and increased peribronchial attenuation possibly representing infectious versus inflammatory process/airways disease. In the ED, has been given cefepime, morphine, ondansetron. He will be admitted for further management of severe neutropenia related to myelodysplastic syndrome with possible pneumonia. Of note, was recently admitted to [facility] with homicidal ideation. Was evaluated by Psychiatry and was cleared multiple times so continued to make intermittent SI/HI comments. Was recommended for outpatient follow-up and was started on perphenazine 8 mg twice daily Review of Systems 2 Review of Systems: Yes all other systems are reviewed and are negative [facility] Medical History Myelodysplastic syndrome with excess blasts Facet arthritis of lumbar region Thrombocytopenia Hypomagnesemia Obesity (BMI 30-39.9) On beta evaristo at home Lung nodule Screening for STD (sexually transmitted disease) Obesity (BMI 30-39.9) Smoker Schizophrenia Nocturnal enuresis Anxiety Midline low back pain Acquired hypothyroidism GERD without esophagitis Constipation Pure hypercholesterolemia Benign essential hypertension Diabetes mellitus Obstructive sleep apnea Dyspnea Obesity (BMI 35.0-39.9 without comorbidity) Nicotine dependence, cigarettes, uncomplicated Schizoaffective disorder Insulin dependent diabetes mellitus Hypothyroidism Hypertension, essential Hyperlipidemia Family History Father CVD (cardiovascular disease) Mother CVD (cardiovascular disease) Diabetes Sister Colon polyps Surgical History H/O colonoscopy (~10/12/20) Hx of facial fracture repair History of left inguinal hernia repair Social History Household Members: Unknown / Unable to assess Household Members Other:: lives in a supported apartment problem Housing: Unknown / Unable to assess Housing Other:: lives in a supported apartment problem Do you presently have visiting nurse or other home services: No Alcohol intake: former Patient Tobacco Use Status: Never used Tobacco Tobacco use type: Cigarette and Cigar Cigarette Packs Per Day: 0.75 Cigarettes Per Day: 40 Years Smoked: 30 Smoked in Last 30 Days: No e-Cigarette/Vaping Use: Never Used Second Hand Smoke Exposure: No Use of substances other than those prescribed or required for medical reasons: Refusing to respond Currently Displaying Signs/Symptoms of Drug Intoxication Withdrawal: No Advance Directives: No Advance Directives Information Provided: Yes Do you have a plan to hurt others: No Plan Recently lost weight without trying: No Eating poorly because of decreased appetite: No Nutrition Risks: No Nutritional Risk Poor oral hygiene: Yes service: No Current occupational status: disabled Sexual orientation: Straight/Heterosexual Cognitive needs: No Hearing needs: No Vision needs: No Meds Allergies Allergy/AdvReac Type Severity Reaction Status Date / Time clozapine [From Clozaril] Allergy Mild ringing in Verified 09/30/23 08:39 ears, pain, leukopenia trifluoperazine Allergy Tongue Verified 09/04/23 13:33 [From Stelazine] Swelling Home Medications ?Medication ?Instructions ?Recorded ?Confirmed ?Last Taken ?Type blood sugar diagnostic #10 ea 03/15/20 09/04/23 Unknown History lancets 28 gauge #100 ea 03/15/20 09/04/23 Unknown History perphenazine 8 mg tablet 8 mg PO TID 02/26/22 09/30/23 Unknown History clonazepam 0.5 mg tablet (Klonopin) 0.5 mg PO BID 04/06/23 09/30/23 Unknown History perphenazine 4 mg tablet 4 mg PO TID 04/06/23 09/30/23 Unknown History aspirin 81 mg chewable tablet 81 mg PO QAM 07/13/23 09/30/23 Unknown History lactulose 10 gram/15 mL oral 15 ml PO DAILY 09/30/23 09/30/23 Unknown History solution semaglutide 0.25 mg or 0.5 mg (2 0.5 mg subcut TU 09/30/23 09/30/23 Unknown History mg/3 mL) subcutaneous pen injector (Ozempic) trazodone 100 mg tablet 200 mg PO BEDTIME PRN Sleep 09/30/23 09/30/23 Unknown History Physical Exam 2 Vital Signs and Narrative: Vital Signs: Last Vital Signs Temp 98.8 F 09/30/23 15:58 Pulse 76 09/30/23 15:58 Resp 16 09/30/23 15:58 BP 157/79 H 09/30/23 15:58 Pulse Ox 98 09/30/23 15:36 O2 Del Method Room Air 09/30/23 15:36 O2 Flow Rate 2 09/30/23 12:19 BMI result Body Mass Index 27.7 Constitutional - Awake and Alert, No apparent distress Eyes - PERRLA, EOMI Cardiovascular - S1S2, RRR, No edema Respiratory - Normal lung expansion, Normal respiratory effort, No respiratory distress, CTA bilaterally Chest - ttp across anterior chest Gastrointestinal - NT / ND; +BS; No rebound or guarding Extremities - no calf tenderness bilaterally, no swelling MSK - midline back pain thoracic and lumbar Skin - Warm/Dry Neurological - Alert & oriented to person and place Psychological - Appropriate affect, poor insight Results Labs 09/30/23 08:54 09/30/23 08:55 Labs: Laboratory Results - last 24 hr 09/30/23 09/30/23 09/30/23 08:54 08:55 09:01 MCV 87.0 MCH 28.9 MCHC 33.2 RDW 21.8 H Plt Count 11 L* D MPV Not Reportable Immature Gran % (Auto) 0.0 Neut % (Auto) 3.8 L Lymph % (Auto) 64.1 H [place] % (Auto) 32.1 H Eos % (Auto) 0.0 Baso % (Auto) 0.0 Lymph # (Auto) 0.5 L [place] # (Auto) 0.3 Eos # (Auto) 0.0 Baso # (Auto) 0.0 Abs Immat Gran (auto) 0.00 Absolute Neuts (auto) 0.0 L Absolute Nucleated RBC 0.000 Nucleated RBC % (auto) 0.0 Smear Tech's Comments VERIFIED D-Dimer High Sensitivty 403 Anion Gap 14 Estim Creat Clear Calc 91.2 Estimated GFR > 60 Random Glucose 311 H Lactic Acid 2.4 H* Lactic Acid F/U @ 2Hr Calcium 9.7 Magnesium 1.6 Total Bilirubin 1.1 H Direct Bilirubin 0.5 AST 19 ALT 20 Alkaline Phosphatase 80 Troponin I High Sens < 2.7 B-Natriuretic Peptide 19 Total Protein 7.5 Albumin 3.9 Lipase 15 Influenza Type A (PCR) NEGATIVE Influenza Type B (PCR) NEGATIVE RSV RNA Qual (PCR) NEGATIVE SARS-CoV-2 RNA (RT-PCR) NEGATIVE Blood Type A Positive Antibody Screen NEGATIVE 09/30/23 12:24 MCV MCH MCHC RDW Plt Count MPV Immature Gran % (Auto) Neut % (Auto) Lymph % (Auto) [place] % (Auto) Eos % (Auto) Baso % (Auto) Lymph # (Auto) [place] # (Auto) Eos # (Auto) Baso # (Auto) Abs Immat Gran (auto) Absolute Neuts (auto) Absolute Nucleated RBC Nucleated RBC % (auto) Smear Tech's Comments D-Dimer High Sensitivty Anion Gap Estim Creat Clear Calc Estimated GFR Random Glucose Lactic Acid Lactic Acid F/U @ 2Hr 1.5 Calcium Magnesium Total Bilirubin Direct Bilirubin AST ALT Alkaline Phosphatase Troponin I High Sens B-Natriuretic Peptide Total Protein Albumin Lipase Influenza Type A (PCR) Influenza Type B (PCR) RSV RNA Qual (PCR) SARS-CoV-2 RNA (RT-PCR) Blood Type Antibody Screen Imaging Radiologist's Impressions: Impressions Chest CTA 09/30/23 12:10 IMPRESSION: No evidence of pulmonary embolism. Innumerable small semisolid pulmonary nodules and increased peribronchial attenuation. This probably represents an infectious or inflammatory process/airways disease. VTE: negative. Assessment and Plan (1) Pancytopenia: Status: Acute (2) MDS (myelodysplastic syndrome): Status: Acute (3) Pneumonia: Status: Acute (4) Neutropenia: Qualifiers: Neutropenia type: unspecified Qualified Code(s): D70.9 - Neutropenia, unspecified Status: Acute Plan 58-year-old male with history of insulin-dependent type 2 diabetes, hypothyroidism, hypertension, bipolar disorder, schizophrenia, and myelodysplastic syndrome (previously refused treatment, on monthly CBC monitoring) now agreeable to treatment/transfusion if needed admitted for further management of severe neutropenia r/t MDS and possible pneumonia. #Severe neutropenia r/t MDS and possible pneumonia -WBC 0.8, ANC 0.0, path slide review pending. No sepsis -Check RPP -CTA chest with possible airways disease/pneumonia. Symptomatic with cough/sob was reportedly hypoxic to 80s on arrival now 98% on RA. No fevers -cover empirically with IV vancomycin and cefepime (initiated 09/29) -strep pneumo antigen, Legionella antigen, sputum culture, MRSA swab pending -neutropenic precautions -follow CBC, cultures -hematology consult #Pancytopenia -r/t MDS -h/h above transfusion threshold at this time. No bleeding -hematology consult -follow cbc -hold aspirin # insulin-dependent type 2 diabetes -dose adjusted basal insulin -POC glucose, diabetic diet/neutropenic diet -Humalog on sliding scale # hypothyroidism -levothyroxine # schizophrenia/bipolar disorder -continue home meds. Give 1 time dose Seroquel for acute agitation -psychiatry consult for capacity assessment # hypertension -continue metoprolol # chronic back pain/diffuse pain -likely related to MDS -continue tizanidine, Tylenol. Patient refuses other medications for pain. DVT prophylaxis- SCPs Full code Pt requires inpt stay at least 2 midnights for management of severe neutropenia with possible pneumonia requiring iv abx, neutropenic precautions, and expert consultation. Quality Stroke Does the patient have a stroke diagnosis?: No VTE Prior VTE?: No VTE Risk Level:: Medical - moderate - high VTE Device Contraindication: Treatment Not Indicated VTE Drug Contraindication: N/A - Med Ordered
[2023-09-30] MEDS: cefEPime HCl 2 GM in 0.9 % Sodium Chloride 50 ML IV (18:00)
[2023-09-30] MEDS: QUEtiapine Fumarate 25 MG TABLET PO (18:00)
--- NOTE | 2023-09-30 18:34 | PHA.MEDREC ---
Pharmacy Consult ? Medication Reconciliation Pharmacy has completed the medication reconciliation. Completed med list with med list from [facility] and pharamcy claims. We had a few questions for the Pt, with the best he could he was able to tell us he is on insulin glargine 48 units daily and ozempic he takes it every thursday. Looking in claims his desmopressin 0.1mg tab has not been filled since 05/21/2023, patient states they are still taking.
--- NOTE | 2023-09-30 18:47 | PC.NURSE ---
pt has 1800 vancomycin ordered. multiple attempts made at administering medication per provider order. pt becoming agitated/yelling at this RN stating i don't need medication! i don't want anything else! get away from me! pt educated on importance on abx administration which only made pt more upset. pt then c/o nausea. prn medication offered. pt increasingly agitated. admitting provider notified/aware in medication delay. plan of care ongoing.
--- NOTE | 2023-09-30 19:26 | PC.NURSE ---
Assumed care of pt. Pt standing in room, appears agitated with delay in admission room. Redirected pt. pt refusing IV provider Todd aware and per previous RN was goign to come speak with pt. No other acute distress at si time.
[2023-09-30] MEDS: Perphenazine 8 MG TABLET PO (21:13)
[2023-09-30] MEDS: traZODone HCL 100 MG TABLET 200 MG PO (21:13)
[2023-09-30] MEDS: Metoprolol Tartrate 50 MG TABLET PO (21:13)
[2023-09-30] MEDS: Atorvastatin Calcium 10 MG TABLET PO (21:13)
[2023-09-30] MEDS: Famotidine 20 MG TABLET 40 MG PO (21:13)
[2023-09-30] MEDS: TiZANidine HCL 4 MG TABLET PO (21:13)
[2023-09-30] MEDS: clonazePAM 0.5 MG TABLET PO (21:13)
[2023-09-30] MEDS: Docusate Sodium 100 MG CAPSULE 200 MG PO (21:14)
[2023-09-30] MEDS: methylPREDNISolone Sod Succ 125 MG/2 ML VIAL 80 MG IVPUSH (21:15)
[2023-09-30] MEDS: diphenhydrAMINE HCL 50 MG/ML VIAL IVPUSH (21:15)
--- NOTE | 2023-09-30 22:34 | PM.EVENT ---
Event Note Date of Service: 09/30/23 Event Note: 8:54 PM - Contacted by nursing to notify that patient is stating that since he received the IV cefepime his flush, difficulty breathing and has sore throat. That it feels like history is closing. His vital signs are within normal limits and he has been speaking clearly. I immediately went to evaluate the patient. He was not in respiratory distress. He was stating that he has pain everywhere and was not very specific about his symptoms. He was also quite rude and asking me: Do you know [place]?! . Oropharynx exam: No swelling, no erythema no discharges. The tongue is not swollen. His lungs were completely clear. Tylenol was prescribed for pain. Time Spent With Patient Time: Total time managing care of this patient today ____ minutes.
[2023-10-01 03:27] VITALS: BP 155/84; PULSE 85; RESP 20; TEMP 36.3; O2SAT 100
[2023-10-01 07:07] VITALS: BP 138/80; PULSE 98; RESP 14; TEMP 36.7; O2SAT 98
[2023-10-01 07:46] LABS: Glucose, Whole Blood 424 mg/dL (60-115)
[2023-10-01] MEDS: Insulin Lispro 100 UNIT/ML 3 ML VIAL SUBCUT ×5 (08:18→20:44)
--- NOTE | 2023-10-01 08:20 | PC.NURSE ---
POC 424 this morning MD Chamberlain notified an additional 5 units of lispro given along with the sliding scale . see MAR
[2023-10-01 09:00] LABS: Adenovirus PCR Not Detected (Not Detect.); Bordetella parapertussis PCR Not Detected (Not Detect.); Bordetella pertussis PCR Not Detected (Not Detect.); Chlamydia pneumoniae PCR Not Detected (Not Detect.); Coronavirus 229E PCR Not Detected (Not Detect.); Coronavirus HKU1 PCR Not Detected (Not Detect.); Coronavirus NL63 PCR Not Detected (Not Detect.); Coronavirus OC43 PCR Not Detected (Not Detect.); Human metapneumovirus PCR Not Detected (Not Detect.); Influenza A PCR Not Detected (Not Detect.); Influenza B PCR Not Detected (Not Detect.); Mycoplasma pneumoniae PCR Not Detected (Not Detect.); Parainfluenza 1 PCR Not Detected (Not Detect.); Parainfluenza 2 PCR Not Detected (Not Detect.); Parainfluenza 3 PCR Not Detected (Not Detect.); Parainfluenza 4 PCR Not Detected (Not Detect.); RSV PCR Not Detected (Not Detect.); Rhino/Enterovirus PCR Not Detected (Not Detect.)
[2023-10-01] MEDS: Insulin Glargine,Hum.rec.anlog 100 UNIT/ML 10 ML VIAL 36 UNIT SUBCUT (09:52)
[2023-10-01] MEDS: clonazePAM 0.5 MG TABLET PO (09:53)
[2023-10-01 09:54] LABS: SARS-CoV-2 PCR Not Detected (Not Detect.)
[2023-10-01] MEDS: traMADoL HCL 50 MG TABLET PO (09:55)
--- NOTE | 2023-10-01 10:08 | PC.NURSE ---
Pt refused blood draw and medications this morning Md Chamberlain notified
--- NOTE | 2023-10-01 10:52 | MHC.CM.PN ---
Addendum entered by Marilee Abreu 10/01/23 15:29: [facility] REPA[facility] MEE WAS IN TO SEE PT AND HE WAS ABLE TO COMPLETE A HCP. CM SPOKE WITH PROVIDER WHO WILL ORDER A PT EVAL FOR POSSIBLE SNF PLACEMENT . CM WILL CONTINUE TO FOLLOW. Original Note: IMM DELIVERED BUT PT REFUSED TO SIGN OR KEEP WHITE COPY. PT DECLINING TO PARTICIPATE IN CM ASSESSMENT. PT DID LET CM KNOW HE USES A CANE TO WALK AND NEEDS A RIDE HOME. DECLINES HCP. PCP DR. MATTHEW. CM RECEIVED A CALL FROM [facility] , WHO IS FOLLOWING FOR A POSSIBLE HOSPICE ADMISSION. PT LIVES IN A [facility] ([facility]) AND [facility] WORKER JESUS RIVERA IS CLOSELY INVOLVED IN CASE ([phone]) AND HAS BEEN TRYING TO GET PT TO COMPLETE A HCP. PER [facility], THEY ARE TRYING TO GET PT TO AGREE TO PLACEMENT IN A SNF SO HE CAN HAVE HOSPICE CARE WHICH HE HAS AGREED TO IN THE PAST. CM WILL CONTINUE TO FOLLOW FOR A PLAN.
[2023-10-01 11:25] LABS: Glucose, Whole Blood 362 mg/dL (60-115)
--- NOTE | 2023-10-01 12:33 | P.PNIM_ITS ---
Subjective Subjective Date of Service: 10/01/23 Interval History: seen and evaluated refusing labs, antibiotics No reported bleeding having generalized pain No fever or chills Review of Systems Review of Systems: Yes all other systems are reviewed and are negative Physical Exam 2 Vital Signs: Vital Signs: Last Vital Signs Temp 98.1 F 10/01/23 07:07 Pulse 98 10/01/23 07:07 Resp 14 10/01/23 07:07 BP 138/80 10/01/23 07:07 Pulse Ox 98 10/01/23 07:07 O2 Del Method Room Air 10/01/23 07:07 O2 Flow Rate 2 09/30/23 12:19 BMI result Body Mass Index 28.0 Const: Other: Constitutional : Awake, interactive, not in distress Neck : Normal inspection, Supple Cardiovascular : RRR, no JVP, no lower extremity edema Respiratory : good bilateral air entry, no crackles, wheezes or rhonchi Gastrointestinal: soft, lax, Normal bowel sounds, Non tender Skin : Warm, Dry Neurological : Alert & oriented x3, No focal deficit Objective Data Active Medications Acetaminophen (Acetaminophen 325 Mg Tablet) 650 mg PO Q6H PRN PRN Reason: Pain, Mild (Pain Scale 1-3) Last Admin: 09/30/23 21:14 Dose: 650 mg Documented By: PIPE Al Hydroxide/Mg Hydroxide (Magnesium Hydrox/Alum Hydrox 30 Ml Oral.Susp) 30 ml PO Q4H PRN PRN Reason: Heartburn/Nausea Atorvastatin Calcium (Atorvastatin Calcium 10 Mg Tablet) 10 mg PO BEDTIME [facility] Last Admin: 09/30/23 21:13 Dose: 10 mg Documented By: PIPE Clonazepam (Clonazepam 0.5 Mg Tablet) 0.5 mg PO BID [facility] Last Admin: 10/01/23 09:53 Dose: 0.5 mg Documented By: ODELL Desmopressin Acetate (Desmopressin Acetate 0.2 Mg Tablet) 0.2 mg PO BEDTIME [facility] Last Admin: 09/30/23 21:26 Dose: Not Given Documented By: PIPE Non-Admin Reason: Patient Refused Docusate Sodium (Docusate Sodium 100 Mg Capsule) 200 mg PO BID [facility] Last Admin: 10/01/23 10:13 Dose: Not Given Documented By: ODELL Non-Admin Reason: Patient Refused Famotidine (Famotidine 20 Mg Tablet) 40 mg PO BID [facility] Last Admin: 10/01/23 10:13 Dose: Not Given Documented By: ODELL Non-Admin Reason: Patient Refused Glucose (Glucose Gel 15 Gm Gel..Gram.) 15 gm PO Q15M PRN; Protocol PRN Reason: per Hypoglycemia Standing Ord. Cefepime HCl 2 gm/ Sodium (Chloride) 50 mls @ 100 mls/hr IV Q8H [facility] Last Admin: 10/01/23 10:15 Dose: Not Given Documented By: ODELL Non-Admin Reason: Patient Refused Dextrose (D10) 250 mls @ 750 mls/hr IV Q15M PRN; Protocol PRN Reason: per Hypoglycemia Standing Ord. Insulin Glargine (Insulin Glargine,Hum.Rec.Anlog 100 Unit/Ml 10 Ml Vial) 36 unit SUBCUT DAILY [facility] Last Admin: 10/01/23 09:52 Dose: 36 unit Documented By: ODELL Insulin Human Lispro (Insulin Lispro 100 Unit/Ml 3 Ml Vial) 0 unit SUBCUT QIDACHS [facility]; Protocol Last Admin: 10/01/23 11:39 Dose: 10 unit Documented By: ODELL Lactulose (Lactulose 20 Gm/30 Ml Solution) 10 gm PO DAILY [facility] Last Admin: 10/01/23 10:14 Dose: Not Given Documented By: ODELL Non-Admin Reason: Patient Refused Levothyroxine Sodium (Levothyroxine Sodium 50 Mcg Tablet) 50 mcg PO DAILY@0600 [facility] Last Admin: 10/01/23 05:16 Dose: Not Given Documented By: PIPE Non-Admin Reason: patient yelling, refusing medication Loratadine (Loratadine 10 Mg Tablet) 10 mg PO DAILY [facility] Last Admin: 10/01/23 10:14 Dose: Not Given Documented By: ODELL Non-Admin Reason: Patient Refused Magnesium Hydroxide (Milk Of Magnesia 30 Ml Oral.Susp) 30 ml PO DAILY PRN PRN Reason: Constipation Magnesium Oxide (Magnesium Oxide 400 Mg Tablet) 400 mg PO DAILY [facility] Last Admin: 10/01/23 10:14 Dose: Not Given Documented By: ODELL Non-Admin Reason: Patient Refused Metoprolol Tartrate (Metoprolol Tartrate 50 Mg Tablet) 50 mg PO BID [facility]; Protocol Last Admin: 10/01/23 10:14 Dose: Not Given Documented By: ODELL Non-Admin Reason: Patient Refused Multivitamins/Vitamin C (Multivitamin Tablet) 1 tab PO DAILY [facility] Last Admin: 10/01/23 10:15 Dose: Not Given Documented By: ODELL Non-Admin Reason: Patient Refused Omeprazole (Omeprazole 20 Mg Capsule.) 20 mg PO DAILY@0630 [facility] Last Admin: 10/01/23 05:16 Dose: Not Given Documented By: PIPE Non-Admin Reason: Patient Refused Perphenazine (Perphenazine 8 Mg Tablet) 8 mg PO TID [facility] Last Admin: 10/01/23 10:15 Dose: Not Given Documented By: ODELL Non-Admin Reason: Patient Refused Sodium Chloride (0.9 % Sodium Chloride Flush 3 Ml Syringe) 3 ml IVFLUSH QSHIFT [facility] Last Admin: 10/01/23 09:56 Dose: Not Given Documented By: ODELL Non-Admin Reason: Patient Refused Tizanidine HCl (Tizanidine Hcl 4 Mg Tablet) 4 mg PO BEDTIME [facility] Last Admin: 09/30/23 21:13 Dose: 4 mg Documented By: PIPE Tramadol HCl (Tramadol Hcl 50 Mg Tablet) 25 mg PO Q6H PRN PRN Reason: Pain, Moderate(Pain Scale 4-6) Trazodone HCl (Trazodone Hcl 100 Mg Tablet) 200 mg PO BEDTIME PRN PRN Reason: Sleep Last Admin: 09/30/23 21:13 Dose: 200 mg Documented By: PIPE Vitamin D (Cholecalciferol (Vitamin D3) 25 Mcg Tablet) 25 mcg PO DAILY [facility] Last Admin: 10/01/23 10:13 Dose: Not Given Documented By: ODELL Non-Admin Reason: Patient Refused Labs 09/30/23 08:54 09/30/23 08:55 Labs: Laboratory Results - last 24 hr 09/30/23 09/30/23 09/30/23 08:54 12:24 16:08 Smear Path Review SEE NOTE POC Glucose Lactic Acid F/U @ 2Hr 1.5 Respiratory Panel [place] See Note Adenovirus (Rapid PCR) Not Detected B.pert (TEM-PCR) Not Detected B.parapertussis DNA PCR Not Detected C. pneumoniae DNA (PCR) Not Detected Coronavirus OC43 (PCR) Not Detected Coronavirus HKU1 (PCR) Not Detected Coronavirus 229E (PCR) Not Detected Coronavirus NL63 (PCR) Not Detected Human Metapneumovir PCR Not Detected Influenza A (RT-PCR) Not Detected Influenza B (RT-PCR) Not Detected M. pneumoniae (PCR) Not Detected Parainfluenza 1 (PCR) Not Detected Parainfluenza 2 (PCR) Not Detected Parainfluenza 3 (PCR) Not Detected Parainfluenza 4 (PCR) Not Detected RSV (PCR) Not Detected Entero/Rhino (PCR) Not Detected SARS-CoV-2 RNA (RT-PCR) Not Detected 10/01/23 10/01/23 07:15 11:21 Smear Path Review POC Glucose 424 H* 362 H* Lactic Acid F/U @ 2Hr Respiratory Panel [place] Adenovirus (Rapid PCR) B.pert (TEM-PCR) B.parapertussis DNA PCR C. pneumoniae DNA (PCR) Coronavirus OC43 (PCR) Coronavirus HKU1 (PCR) Coronavirus 229E (PCR) Coronavirus NL63 (PCR) Human Metapneumovir PCR Influenza A (RT-PCR) Influenza B (RT-PCR) M. pneumoniae (PCR) Parainfluenza 1 (PCR) Parainfluenza 2 (PCR) Parainfluenza 3 (PCR) Parainfluenza 4 (PCR) RSV (PCR) Entero/Rhino (PCR) SARS-CoV-2 RNA (RT-PCR) Microbiology Microbiology Results: Microbiology 09/30/23 10:17 Blood Culture - Preliminary Blood - Venous No growth after 24 hours. 09/30/23 09:01 Blood Culture - Preliminary Blood - Venous No growth after 24 hours. Assessment and Plan (1) Pneumonia: Status: Acute (2) MDS (myelodysplastic syndrome): Status: Acute (3) Pancytopenia: Status: Acute (4) Acidosis, lactic: Status: Acute Plan 58-year-old male with history of insulin-dependent type 2 diabetes, hypothyroidism, hypertension, bipolar disorder, schizophrenia, and myelodysplastic syndrome (previously refused treatment, on monthly CBC monitoring) now agreeable to treatment/transfusion if needed admitted for further management of severe neutropenia r/t MDS and possible pneumonia. # Pancytopenia 2/2 MDS and possible pneumonia Severe Leukopenia and thrombocytopenia Blood peripheral smear showing few abnormal cells concerning for possible transformation to AML if Blasts CTA chest with possible airways disease/infection empirically with IV vancomycin and cefepime (initiated 09/29), refusing Abx, change to Cefepime only Pending strep pneumo antigen, Legionella antigen, sputum culture, MRSA swab pending neutropenic precautions follow CBC, cultures Pending hematology consult H\H still above transfusion threshold at this time. No bleeding. transfuse PRBCs and PLT as needed hold aspirin # insulin-dependent type 2 diabetes with Hyperglycemia increase basal insulin to 45 units diabetic diet/neutropenic diet Humalog on sliding scale # hypothyroidism levothyroxine # schizophrenia/bipolar disorder home meds. psychiatry consult for capacity assessment # hypertension continue metoprolol # chronic back pain/diffuse pain likely related to MDS continue tizanidine, Tylenol. Patient refuses other medications for pain. DVT prophylaxis- SCPs Full code Pt requires inpt stay overnight for management of severe neutropenia with possible pneumonia requiring iv abx, neutropenic precautions, and expert consultation. Quality Stroke Does the patient have a stroke diagnosis?: No VTE Prior VTE?: No VTE Risk Level:: Medical - moderate - high VTE Device Contraindication: Treatment Not Indicated VTE Drug Contraindication: N/A - Med Ordered
--- NOTE | 2023-10-01 13:59 | PM.HEMONCCN ---
Subjective - Subjective Chief complaint: Consult for: MDS with excess blasts. Patient: new to practice Consult date: 10/01/23 Requesting Physician: Cintia Primary Care Provider: Mando Turpin MD Family Provider: Papi Medical Summary: DIAGNOSIS: RAEB HPI - Consult Narrative Reason for consult: Consult for: MDS: Refractory anemia with excess blasts. Narrative: I have been asked by Dr. Chamberlain to see Williams White on account of MDS He is a 58 year old gentleman, who presented yesterday with generalized body pain and severe pain in the low back. He has nonproductive cough, shortness of breath, chest tightness, and weakness. There is also bilateral maxillary sinus pain. Denies fevers, chills, congestion, sore throat, abdominal pain, nausea, vomiting, diarrhea, urinary symptoms, lightheadedness, headache, syncope. On arrival, reportedly was hypoxic into the 80s but is now saturating 98% on room air. He is afebrile, vitals otherwise within normal limits. He is pancytopenia including significant neutropenia with WBC 0.8, ANC 0.0. H/H 8.0/24.1%, platelets 11. Renal function normal, electrolyte levels normal. Initial lactic acid 2.4, repeat 1.5. Hepatic function largely unremarkable. Troponin below detectable limits. BNP within normal limits. Respiratory panel pending. Head CT negative for any acute intracranial abnormality. CTA of the chest negative for PE which shows innumerable small semi solid pulmonary nodules and increased peribronchial attenuation possibly representing infectious versus inflammatory process/airways disease. In the ED, has been given cefepime, morphine, ondansetron. He has been admitted for further management of severe neutropenia related to myelodysplastic syndrome with possible pneumonia. PAST MEDICAL HISTORY: 1. MDS: He was admitted to [facility] between 05/29 and 06/10/23. He presented with chest pain. ACS was ruled out. He was noted to to have behavioral changes and pancytopenia. CBC revealed: WBC of 1.1, HGB of 9.7 and PLT 33. ANC 0.2. Haptoglobin was undetectable. Multiple myeloma was ruled out. LDH was normal. Bone marrow biopsy on 06/05/23 revealed MDS with increased blasts. He was seen by strip cutter Dr. Paulino at [facility] 06/24. Diagnosis was discussed with him. 25% risk of progression to AML was explained. Treatment including chemotherapy and blood transfusion were offered however, he adamantly declined all therapy. 2. Schizophrenia. 3. Bipolar disorder. 4. Diabetes. 5. Hypertension. 6. Hypothyroidism. FAMILY HISTORY: He denies any known family history of a blood disorder or cancer. 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 He from his . Has no children. He smoked a pack-a-day quit a month ago. He used to drink beer now and then. ROS: He tells me he has diffuse body aches and bone pain over the past couple of months. He denies fever nor chills. Appetite is down. He is lost weight. He complains of sinus headaches. He has a sore throat. He has had a cough with greenish sputum production. He complains of shortness of breath. He has upper abdominal pain and nausea and dry heaving. Denies vomiting bowels are regular denies any gross blood in the stools. No dysuria or hematuria. He has diffuse bone pain. He feels weak all over. He feels depressed. He has schizophrenia and bipolar disorder. Review of Systems - Constitutional Reports system reviewed and no additional complaints, except as documented, Reports fatigue, Reports headache(s), Reports lack of energy, Reports malaise, Denies fever(s) - Eyes Reports system reviewed and no additional complaints, except as documented, Reports blurry vision - ENT Reports system reviewed and no additional complaints, except as documented, Reports sinus pain - Cardiovascular Reports system reviewed and no additional complaints, except as documented, Reports chest pain, Reports shortness of breath causing sudden awakening - Respiratory Reports no additional respiratory complaints, Reports cough, Reports excessive phlegm production - Gastrointestinal Reports system reviewed and no additional complaints, except as documented - Genitourinary Genitourinary: Reports no additional male genitourinary complaints, Denies difficulty urinating - Musculoskeletal Reports system reviewed and no additional complaints, except as documented, Reports back pain, Reports body aches, Reports joint pain - Integumentary/Breasts Skin/Breast: Reports no additional skin complaints, Denies bleeding lesions - Neurologic Reports system reviewed and no additional complaints, except as documented, Reports weakness, Denies abnormal movements - Psychiatric Reports system reviewed and no additional complaints, except as documented - Endocrine Reports no additional endocrine complaints - Hematologic/Lymphatic Reports system reviewed and no additional complaints, except as documented - Allergic/Immunologic Reports system reviewed and no additional complaints, except as documented Oncology Screenings - ECOG Performance Status ECOG Performance Status: 2 [facility] Medical History: Medical History (Last Reviewed 09/30/23 @ 17:53 by LINA Foss) Acquired hypothyroidism Anxiety Benign essential hypertension Constipation Diabetes mellitus Dyspnea Facet arthritis of lumbar region GERD without esophagitis Hyperlipidemia Hypertension, essential Hypomagnesemia Hypothyroidism Insulin dependent diabetes mellitus Lung nodule Midline low back pain Myelodysplastic syndrome with excess blasts Nicotine dependence, cigarettes, uncomplicated Nocturnal enuresis Obesity (BMI 30-39.9) Obesity (BMI 30-39.9) Obesity (BMI 35.0-39.9 without comorbidity) Obstructive sleep apnea On beta evaristo at home Pure hypercholesterolemia Schizoaffective disorder Schizophrenia Screening for STD (sexually transmitted disease) Smoker Thrombocytopenia Functional capacity: wheelchair bound Family History: Family History (Last Reviewed 09/30/23 @ 17:53 by LINA Foss) Father CVD (cardiovascular disease) Mother CVD (cardiovascular disease) Diabetes Sister Colon polyps Surgical History: Surgical History (Last Reviewed 09/30/23 @ 17:53 by LINA Foss) H/O colonoscopy Onset Date: ~10/12/20 History of left inguinal hernia repair Hx of facial fracture repair Social History: Social History (Last Reviewed 09/30/23 @ 17:53 by LINA Foss) Living Situation History: Household Members: Unknown / Unable to asses Household Members Other:: lives in a supported apartment problem Housing: Unknown / Unable to asses Housing Other:: lives in a supported apartment problem Do you presently have visiting nurse or other home services: No Alcohol History Details: 1. How often do you have a drink containing alcohol?: a. Never AUDIT-C Alcohol total score: 0 Last drink: Unknown Currently Displaying Signs/Symptoms of Alcohol Withdrawal: No Tobacco History: Patient Tobacco Use Status: Never used Tobacco Tobacco use type: Cigarette Tobacco use type: Cigar Cigarette Packs Per Day: 0.75 Years Smoked: 30 Smoked in Last 30 Days: No e-Cigarette/Vaping Use: Never Used Second Hand Smoke Exposure: No Substance Use History: Use of substances other than those prescribed or required for medical reasons: Refusing to respond Currently Displaying Signs/Symptoms of Drug Intoxication Withdrawal: No Advance Directives: Advance Directives: No Advance Directives Information Provided: Yes Homicidal Assessment: Do you have a plan to hurt others: No Plan Nutrition Assessment: Recently lost weight without trying: No Eating poorly because of decreased appetite: No Nutrition Risks: No Nutritional Risk Poor oral hygiene: Yes Occupation Assessmet: service: No Current occupational status: disabled Sex/Gender Assessment: Sexual orientation: Straight/Heterosexual Home Medications and Allergies Current Medications: Current Medications Acetaminophen (Acetaminophen 325 Mg Tablet) 650 mg PO Q6H PRN PRN Reason: Pain, Mild (Pain Scale 1-3) Last Admin: 09/30/23 21:14 Dose: 650 mg Al Hydroxide/Mg Hydroxide (Magnesium Hydrox/Alum Hydrox 30 Ml Oral.Susp) 30 ml PO Q4H PRN PRN Reason: Heartburn/Nausea Atorvastatin Calcium (Atorvastatin Calcium 10 Mg Tablet) 10 mg PO BEDTIME [facility] Last Admin: 09/30/23 21:13 Dose: 10 mg Clonazepam (Clonazepam 0.5 Mg Tablet) 0.5 mg PO BID [facility] Last Admin: 10/01/23 09:53 Dose: 0.5 mg Desmopressin Acetate (Desmopressin Acetate 0.2 Mg Tablet) 0.2 mg PO BEDTIME [facility] Last Admin: 09/30/23 21:26 Dose: Not Given Docusate Sodium (Docusate Sodium 100 Mg Capsule) 200 mg PO BID [facility] Last Admin: 10/01/23 10:13 Dose: Not Given Famotidine (Famotidine 20 Mg Tablet) 40 mg PO BID [facility] Last Admin: 10/01/23 10:13 Dose: Not Given Glucose (Glucose Gel 15 Gm Gel..Gram.) 15 gm PO Q15M PRN; Protocol PRN Reason: per Hypoglycemia Standing Ord. Cefepime HCl 2 gm/ Sodium (Chloride) 50 mls @ 100 mls/hr IV Q8H [facility] Last Admin: 10/01/23 10:15 Dose: Not Given Dextrose (D10) 250 mls @ 750 mls/hr IV Q15M PRN; Protocol PRN Reason: per Hypoglycemia Standing Ord. Insulin Glargine (Insulin Glargine,Hum.Rec.Anlog 100 Unit/Ml 10 Ml Vial) 45 unit SUBCUT DAILY [facility] Insulin Human Lispro (Insulin Lispro 100 Unit/Ml 3 Ml Vial) 0 unit SUBCUT QIDACHS [facility]; Protocol Last Admin: 10/01/23 11:39 Dose: 10 unit Lactulose (Lactulose 20 Gm/30 Ml Solution) 10 gm PO DAILY [facility] Last Admin: 10/01/23 10:14 Dose: Not Given Levothyroxine Sodium (Levothyroxine Sodium 50 Mcg Tablet) 50 mcg PO DAILY@0600 [facility] Last Admin: 10/01/23 05:16 Dose: Not Given Loratadine (Loratadine 10 Mg Tablet) 10 mg PO DAILY [facility] Last Admin: 10/01/23 10:14 Dose: Not Given Magnesium Hydroxide (Milk Of Magnesia 30 Ml Oral.Susp) 30 ml PO DAILY PRN PRN Reason: Constipation Magnesium Oxide (Magnesium Oxide 400 Mg Tablet) 400 mg PO DAILY [facility] Last Admin: 10/01/23 10:14 Dose: Not Given Metoprolol Tartrate (Metoprolol Tartrate 50 Mg Tablet) 50 mg PO BID [facility]; Protocol Last Admin: 10/01/23 10:14 Dose: Not Given Multivitamins/Vitamin C (Multivitamin Tablet) 1 tab PO DAILY [facility] Last Admin: 10/01/23 10:15 Dose: Not Given Omeprazole (Omeprazole 20 Mg Capsule.Dr) 20 mg PO DAILY@0630 [facility] Last Admin: 10/01/23 05:16 Dose: Not Given Perphenazine (Perphenazine 8 Mg Tablet) 8 mg PO TID [facility] Last Admin: 10/01/23 10:15 Dose: Not Given Sodium Chloride (0.9 % Sodium Chloride Flush 3 Ml Syringe) 3 ml IVFLUSH QSHIFT [facility] Last Admin: 10/01/23 09:56 Dose: Not Given Tizanidine HCl (Tizanidine Hcl 4 Mg Tablet) 4 mg PO BEDTIME [facility] Last Admin: 09/30/23 21:13 Dose: 4 mg Tramadol HCl (Tramadol Hcl 50 Mg Tablet) 25 mg PO Q6H PRN PRN Reason: Pain, Moderate(Pain Scale 4-6) Trazodone HCl (Trazodone Hcl 100 Mg Tablet) 200 mg PO BEDTIME PRN PRN Reason: Sleep Last Admin: 09/30/23 21:13 Dose: 200 mg Vitamin D (Cholecalciferol (Vitamin D3) 25 Mcg Tablet) 25 mcg PO DAILY [facility] Last Admin: 10/01/23 10:13 Dose: Not Given Home Medications ?Medication ?Instructions ?Recorded ?Confirmed ?Type blood sugar diagnostic #10 ea 03/15/20 09/04/23 History lancets 28 gauge #100 ea 03/15/20 09/04/23 History perphenazine 8 mg tablet 8 mg PO TID 02/26/22 09/30/23 History clonazepam 0.5 mg tablet (Klonopin) 0.5 mg PO BID 04/06/23 09/30/23 History perphenazine 4 mg tablet 4 mg PO TID 04/06/23 09/30/23 History aspirin 81 mg chewable tablet 81 mg PO QAM 07/13/23 09/30/23 History lactulose 10 gram/15 mL oral 15 ml PO DAILY 09/30/23 09/30/23 History solution semaglutide 0.25 mg or 0.5 mg (2 0.5 mg subcut TU 09/30/23 09/30/23 History mg/3 mL) subcutaneous pen injector (Ozempic) trazodone 100 mg tablet 200 mg PO BEDTIME PRN Sleep 09/30/23 09/30/23 History Allergies Allergy/AdvReac Type Severity Reaction Status Date / Time clozapine [From Clozaril] Allergy Mild ringing in Verified 09/30/23 08:39 ears, pain, leukopenia trifluoperazine Allergy Tongue Verified 09/04/23 13:33 [From Stelazine] Swelling Physical Exam Vital signs: Vital Signs Temp 98.1 F 10/01/23 07:07 Pulse 98 10/01/23 07:07 Resp 14 10/01/23 07:07 BP 138/80 10/01/23 07:07 Pulse Ox 98 10/01/23 07:07 O2 Del Method Room Air 10/01/23 07:07 O2 Flow Rate 2 09/30/23 12:19 Intake & Output 09/30/23 10/01/23 10/01/23 18:59 06:59 18:59 Intake Total 1034 / 1474 440 / 1474 480 / 480 Balance 1034 / 1474 440 / 1474 480 / 480 Intake: Intake, Oral Amount 440 / 440 480 / 480 Intake (Blood Product) Amount 334 / 334 Plt Aph Pas Pathreduced(E8341) 334 / 334 Unit [id number] Intake, IV Amount 700 / 700 0.9 % Sodium Chloride 100 ml @ 100 / 100 100 mls/hr IV ONCE ONE Rx#: [id number] 0.9 % Sodium Chloride 500 ml @ 500 / 500 500 mls/hr IV .Q1H ONE Rx#: [id number] cefEPime HCl 1 gm In 0.9 % 50 / 50 Sodium Chloride 50 ml @ 100 mls /hr IV ONCE ONE Rx#:[id number] cefEPime HCl 2 gm In 0.9 % 50 / 50 Sodium Chloride 50 ml @ 100 mls /hr IV Q8H BENJA Rx#:[id number] Other: Meal Refused No NPO No Breakfast % Eaten 75% Lunch % Eaten 100% Number of Unmeasured Voids 2 3 Urine Urinal Bathroom Weight 87.5 kg 88.5 kg [place] Weight in Grams 21646 Weight 88.5 kg - Constitutional Present: moderate distress - Routine HEENT Exam Head: Present: normal inspection, normocephalic Eye: Present: EOMI, normal appearance ENT: Present: mucous membranes moist - Routine Neck Exam Present: supple - Routine Respiratory Exam Present: CTAB - Routine Cardiovascular Exam Cardiovascular: Present: RRR, S1, S2 - Routine Abdominal Exam Present: soft, nontender - Routine Skin Exam Present: intact, normal turgor Hem/Onc Consult Result - Labs CBC & Chem 7: 09/30/23 08:54 09/30/23 08:55 Assessment and Plan Patient Active problem list reviewed?: Yes (1) Refractory anemia with excess blasts-2 Status: Acute Assessment and plan: 58-year-old gentleman with recent diagnosis of MDS: He was admitted to [facility] between 05/29 and 06/10/23. He presented with chest pain. ACS was ruled out. He was noted to to have behavioral changes and pancytopenia. CBC revealed: WBC of 1.1, HGB of 9.7 and PLT 33. ANC 0.2. Haptoglobin was undetectable. Multiple myeloma was ruled out. LDH was normal. Bone marrow biopsy on 06/05/23 revealed MDS with increased blasts. He was seen by strip cutter Dr. Paulino at [facility] 06/24. Diagnosis was discussed with him. 25% risk of progression to AML was explained. Treatment including chemotherapy and blood transfusion were offered however, he adamantly declined all therapy. He had agreed to having his blood count checked once a month. Based upon his IPSS-R score he has intermediate/ high-risk disease. For high-risk. MDS patients possible treatment options include intensive chemotherapy with remission induction with or without allogeneic hematopoietic stem cell transplant. One can also consider lower intensity therapy such as hypomethylating agents like 5 azacitidine or decitabine. That would be reasonable in his case. He would need transfusion support. Upon presenting these options to him, he declined. I explained that with treatment, we might be able to delay the progression to AML, and improve the cytopenias. He strongly stated that he would not like to be treated for MDS, since he does not wish to go through the side effects. Meanwhile it appears that he did accept a platelet transfusion yesterday. At the end he stated that he can not make up his mind right now. He has been refusing lab draws and antibiotics. Can address the issue with him at a later time. Psychiatry to assess his judgment and capacity to make decisions. Thank you for the consult, Will follow along with you. CC: Dr. Turpin. Addendum: The patient finally refused all treatments. He will be going home with hospice care. - Time Spent With Patient Time Spent with Patient (in minutes): 30
[2023-10-01] MEDS: Insulin Glargine,Hum.rec.anlog 100 UNIT/ML 10 ML VIAL 10 UNIT SUBCUT (14:11)
[2023-10-01 15:17] VITALS: BP 133/64; PULSE 79; RESP 13; TEMP 36.8; O2SAT 95
[2023-10-01 16:34] LABS: Glucose, Whole Blood 259 mg/dL (60-115)
[2023-10-01] MEDS: cefEPime HCl 2 GM in 0.9 % Sodium Chloride 50 ML IV (17:11)
[2023-10-01] MEDS: 0.9 % Sodium Chloride Flush 3 ML SYRINGE IVFLUSH (17:15)
[2023-10-01 20:42] LABS: Glucose, Whole Blood 315 mg/dL (60-115)
--- NOTE | 2023-10-01 21:20 | PC.NURSE ---
patient refused pm meds, assessment, and care...the only thing he accepted after much deliberation was his insulin for poc 315
[2023-10-02 04:00] VITALS: BP 139/75; PULSE 89; RESP 16; TEMP 36.9; O2SAT 94
--- NOTE | 2023-10-02 05:28 | PC.NURSE ---
pt. refusing medications overnight, states he does not need them. Refused lab draws in AM as well.
[2023-10-02 07:33] VITALS: BP 145/73; PULSE 84; RESP 16; TEMP 36.1; O2SAT 95
[2023-10-02 07:41] LABS: Glucose, Whole Blood 242 mg/dL (60-115)
[2023-10-02] MEDS: Insulin Lispro 100 UNIT/ML 3 ML VIAL SUBCUT (08:03)
[2023-10-02] MEDS: Insulin Glargine,Hum.rec.anlog 100 UNIT/ML 10 ML VIAL 45 UNIT SUBCUT (08:03)
[2023-10-02 11:15] LABS: Glucose, Whole Blood 204 mg/dL (60-115)
--- NOTE | 2023-10-02 12:38 | P.PNIM_ITS ---
Subjective Subjective Date of Service: 10/02/23 Interval History: seen and evaluated refusing labs, antibiotics and refused any possible treatment or blood transfusion He is not interested in treatment and ok with the idea of from his illness No reported bleeding reporting generalized pain No fever or chills Review of Systems Review of Systems: Yes all other systems are reviewed and are negative Physical Exam 2 Vital Signs: Vital Signs: Last Vital Signs Temp 96.9 F 10/02/23 07:33 Pulse 84 10/02/23 07:33 Resp 16 10/02/23 07:33 BP 145/73 H 10/02/23 07:33 Pulse Ox 95 10/02/23 07:33 O2 Del Method Room Air 10/02/23 07:33 O2 Flow Rate 2 09/30/23 12:19 BMI result Body Mass Index 28.0 Const: Other: Constitutional : Awake, pale, not in distress Neck : Normal inspection, Supple Cardiovascular : RRR, no JVP, no lower extremity edema Respiratory : good bilateral air entry, no crackles, wheezes or rhonchi Gastrointestinal: soft, lax, Normal bowel sounds, Non tender Skin : Warm, Dry Neurological : Alert & oriented to self and place, No focal deficit Objective Data Active Medications Acetaminophen (Acetaminophen 325 Mg Tablet) 650 mg PO Q6H PRN PRN Reason: Pain, Mild (Pain Scale 1-3) Last Admin: 09/30/23 21:14 Dose: 650 mg Documented By: IPPE Al Hydroxide/Mg Hydroxide (Magnesium Hydrox/Alum Hydrox 30 Ml Oral.Susp) 30 ml PO Q4H PRN PRN Reason: Heartburn/Nausea Atorvastatin Calcium (Atorvastatin Calcium 10 Mg Tablet) 10 mg PO BEDTIME [facility] Last Admin: 10/01/23 20:02 Dose: Not Given Documented By: ILDA Non-Admin Reason: Patient Refused Clonazepam (Clonazepam 0.5 Mg Tablet) 0.5 mg PO BID [facility] Last Admin: 10/02/23 08:05 Dose: Not Given Documented By: LORI Non-Admin Reason: Patient Refused Desmopressin Acetate (Desmopressin Acetate 0.2 Mg Tablet) 0.2 mg PO BEDTIME [facility] Last Admin: 10/01/23 20:03 Dose: Not Given Documented By: ILDA Non-Admin Reason: Patient Refused Docusate Sodium (Docusate Sodium 100 Mg Capsule) 200 mg PO BID [facility] Last Admin: 10/02/23 08:05 Dose: Not Given Documented By: LORI Non-Admin Reason: Patient Refused Famotidine (Famotidine 20 Mg Tablet) 40 mg PO BID [facility] Last Admin: 10/02/23 08:06 Dose: Not Given Documented By: LORI Non-Admin Reason: Patient Refused Glucose (Glucose Gel 15 Gm Gel..Gram.) 15 gm PO Q15M PRN; Protocol PRN Reason: per Hypoglycemia Standing Ord. Cefepime HCl 2 gm/ Sodium (Chloride) 50 mls @ 100 mls/hr IV Q8H [facility] Last Admin: 10/02/23 10:37 Dose: Not Given Documented By: LORI Non-Admin Reason: Patient Refused Dextrose (D10) 250 mls @ 750 mls/hr IV Q15M PRN; Protocol PRN Reason: per Hypoglycemia Standing Ord. Insulin Glargine (Insulin Glargine,Hum.Rec.Anlog 100 Unit/Ml 10 Ml Vial) 45 unit SUBCUT DAILY [facility] Last Admin: 10/02/23 08:03 Dose: 45 unit Documented By: LORI Insulin Human Lispro (Insulin Lispro 100 Unit/Ml 3 Ml Vial) 0 unit SUBCUT QIDACHS [facility]; Protocol Last Admin: 10/02/23 12:16 Dose: Not Given Documented By: LORI Non-Admin Reason: pt not eating Lactulose (Lactulose 20 Gm/30 Ml Solution) 10 gm PO DAILY [facility] Last Admin: 10/02/23 08:06 Dose: Not Given Documented By: LORI Non-Admin Reason: Patient Refused Levothyroxine Sodium (Levothyroxine Sodium 50 Mcg Tablet) 50 mcg PO DAILY@0600 [facility] Last Admin: 10/02/23 05:28 Dose: Not Given Documented By: LUIS F Non-Admin Reason: Patient Refused Loratadine (Loratadine 10 Mg Tablet) 10 mg PO DAILY [facility] Last Admin: 10/02/23 08:06 Dose: Not Given Documented By: LORI Non-Admin Reason: Patient Refused Magnesium Hydroxide (Milk Of Magnesia 30 Ml Oral.Susp) 30 ml PO DAILY PRN PRN Reason: Constipation Magnesium Oxide (Magnesium Oxide 400 Mg Tablet) 400 mg PO DAILY [facility] Last Admin: 10/02/23 08:06 Dose: Not Given Documented By: LORI Non-Admin Reason: Patient Refused Metoprolol Tartrate (Metoprolol Tartrate 50 Mg Tablet) 50 mg PO BID [facility]; Protocol Last Admin: 10/02/23 08:06 Dose: Not Given Documented By: LORI Non-Admin Reason: Patient Refused Multivitamins/Vitamin C (Multivitamin Tablet) 1 tab PO DAILY [facility] Last Admin: 10/02/23 08:07 Dose: Not Given Documented By: LORI Non-Admin Reason: Patient Refused Omeprazole (Omeprazole 20 Mg Capsule.Dr) 20 mg PO DAILY@0630 [facility] Last Admin: 10/02/23 05:28 Dose: Not Given Documented By: ANTOIC Non-Admin Reason: Patient Refused Perphenazine (Perphenazine 8 Mg Tablet) 8 mg PO TID [facility] Last Admin: 10/02/23 08:07 Dose: Not Given Documented By: LORI Non-Admin Reason: Patient Refused Sodium Chloride (0.9 % Sodium Chloride Flush 3 Ml Syringe) 3 ml IVFLUSH QSHIFT [facility] Last Admin: 10/02/23 08:05 Dose: Not Given Documented By: LORI Non-Admin Reason: Patient Refused Tizanidine HCl (Tizanidine Hcl 4 Mg Tablet) 4 mg PO BEDTIME [facility] Last Admin: 10/01/23 20:05 Dose: Not Given Documented By: ILDA Non-Admin Reason: Patient Refused Tramadol HCl (Tramadol Hcl 50 Mg Tablet) 25 mg PO Q6H PRN PRN Reason: Pain, Moderate(Pain Scale 4-6) Trazodone HCl (Trazodone Hcl 100 Mg Tablet) 200 mg PO BEDTIME PRN PRN Reason: Sleep Last Admin: 09/30/23 21:13 Dose: 200 mg Documented By: PIPE Vitamin D (Cholecalciferol (Vitamin D3) 25 Mcg Tablet) 25 mcg PO DAILY [facility] Last Admin: 10/02/23 08:05 Dose: Not Given Documented By: LORI Non-Admin Reason: Patient Refused Labs 09/30/23 08:54 09/30/23 08:55 Labs: Laboratory Results - last 24 hr 10/01/23 10/01/23 10/02/23 16:29 20:37 07:35 POC Glucose 259 H 315 H 242 H 10/02/23 11:08 POC Glucose 204 H Microbiology Microbiology Results: Microbiology 09/30/23 10:17 Blood Culture - Preliminary Blood - Venous No growth after 48 hours. 09/30/23 09:01 Blood Culture - Preliminary Blood - Venous No growth after 48 hours. Assessment and Plan (1) Refractory anemia with excess blasts-2: Status: Acute (2) Pneumonia: Status: Acute (3) MDS (myelodysplastic syndrome): Status: Acute (4) Pancytopenia: Status: Acute Plan 58-year-old male with history of insulin-dependent type 2 diabetes, hypothyroidism, hypertension, bipolar disorder, schizophrenia, and myelodysplastic syndrome (previously refused treatment, on monthly CBC monitoring) now agreeable to treatment/transfusion if needed admitted for further management of severe neutropenia r/t MDS and possible pneumonia. # Pancytopenia 2/2 MDS Severe Leukopenia and thrombocytopenia refuse to repeat labs CTA chest with possible airways disease/infection neutropenic precautions hematology consulted, patient refuses treatment options and blood transfusions hold aspirin PT evaluation # Suspected Pneumonia empirically with IV vancomycin and cefepime (initiated 09/29), refusing Abx, change to PO Abx Pending strep pneumo antigen, Legionella antigen, sputum culture, MRSA swab pending follow cultures # insulin-dependent type 2 diabetes with Hyperglycemia better controlled increased basal insulin to 50 units diabetic diet/neutropenic diet Humalog on sliding scale # hypothyroidism levothyroxine # schizophrenia/bipolar disorder home meds. Patient has capacity to make decisions. Psych were ask to evaluate while in ED but never did. not sure about his mental status at that time. # hypertension continue metoprolol # chronic back pain/diffuse pain likely related to MDS continue tizanidine, Tylenol. Patient refuses other medications for pain. DVT prophylaxis- SCDs Code status: He is not interested in treatment and ok with the idea of from his illness. refusing labs, antibiotics and refused any possible treatment or blood transfusion. To sign MOLST form and get hospice team evaluation. Pt requires inpt stay overnight for management of severe neutropenia with possible pneumonia requiring abx, neutropenic precautions pending safe discharge plan Quality Stroke Does the patient have a stroke diagnosis?: No VTE Prior VTE?: No VTE Risk Level:: Medical - moderate - high VTE Device Contraindication: Treatment Not Indicated VTE Drug Contraindication: N/A - Med Ordered
--- NOTE | 2023-10-02 14:43 | MHC.CM.PN ---
Addendum entered by Megan Johns 10/03/23 13:39: INITIAL SNF REFERRALS RESULTS IN NO BED OFFERS REFERRAL BROADCASTED TO ALL [facility] CONTRACTED SNFS IN THE AREA [facility] IS THE ONLY SNF OFFERING A BED, THEY ARE ABLE TO ACCEPT ON THURSDAY Original Note: EMR REVIEWED AND PER MD ROUNDS, PT WILL NEED SNF PLACEMENT/HOSPICE CARE. PT IS DECLINING ALL [place]. REFERRALS PLACED AND C UPDATED. PER [facility], THEY HAVE ALREADY COMPLETED A HOSPICE INFORMATIONAL WITH PT. [facility] COMPOSING MACHINE OPERATOR JESUS CALLED FOR AN UPDATE. CM WILL CONTINUE TO SEEK SNF PLACEMENT.
--- NOTE | 2023-10-02 16:23 | PC.NURSE ---
Pt refusing all PO medications and assessments. Dr Chamberlain aware.
[2023-10-02 19:26] VITALS: BP 148/79; PULSE 96; RESP 18; TEMP 35.9; O2SAT 95
--- NOTE | 2023-10-02 19:30 | PC.NURSE ---
This RN assumed care at 1900. Pt resting quietly in bed, AOx2, reports full body aches but refuses pain medications. Lungs sounds clear slightly diminished due to not taking full breaths. Bowel soundsx4 no pain with palpation. Pt is wearing personal clothes and refuses a martha. Pt refused POC. BP was obtained. Shades closed per pts request. No apparent distress call reid within reach.
--- NOTE | 2023-10-02 20:37 | PC.NURSE ---
Addendum entered by Monet Vazquez RN 10/02/23 20:56: made aware Original Note: 2 attempts made to give meds with jello patient refused both times. IV removed due to being infiltrated. Pt refusing new IV placement.
--- NOTE | 2023-10-03 03:56 | PC.NURSE ---
Pt sleeping, respirations even and unlabored, with no apparent distress. Call reid within reach.
--- NOTE | 2023-10-03 05:46 | PC.NURSE ---
Pt refused morning meds, made aware.
--- NOTE | 2023-10-03 10:17 | PC.NURSE ---
Patient refusing all care, meds, POC check, labs, assessments. States he is in pain but refusing any pain meds or interventions to help pain. Patient raised voice at this RN and told me to get out of room. Dr. Cintia hyman.
--- NOTE | 2023-10-03 12:53 | P.PNIM_ITS ---
Subjective Subjective Date of Service: 10/03/23 Interval History: seen and evaluated No reported bleeding reporting generalized pain but refusing meds not interested in any kind of treatment. spoke with hospice team No fever or chills Review of Systems Review of Systems: Yes all other systems are reviewed and are negative Physical Exam 2 Vital Signs: Vital Signs: Last Vital Signs Temp 96.6 F L 10/02/23 19:26 Pulse 96 10/02/23 19:26 Resp 18 10/02/23 19:26 BP 148/79 H 10/02/23 19:26 Pulse Ox 95 10/02/23 19:26 O2 Del Method Room Air 10/02/23 19:26 O2 Flow Rate 2 09/30/23 12:19 BMI result Body Mass Index 28.0 Const: Other: Constitutional : Awake, pale, not in distress Neck : Normal inspection, Supple Cardiovascular : RRR, no JVP, no lower extremity edema Respiratory : good bilateral air entry, no crackles, wheezes or rhonchi Gastrointestinal: soft, lax, Normal bowel sounds, Non tender Skin : Warm, Dry Neurological : Alert & oriented to self and place, No focal deficit Objective Data Active Medications Acetaminophen (Acetaminophen 325 Mg Tablet) 650 mg PO Q6H PRN PRN Reason: Pain, Mild (Pain Scale 1-3) Last Admin: 09/30/23 21:14 Dose: 650 mg Documented By: PIPE Al Hydroxide/Mg Hydroxide (Magnesium Hydrox/Alum Hydrox 30 Ml Oral.Susp) 30 ml PO Q4H PRN PRN Reason: Heartburn/Nausea Atorvastatin Calcium (Atorvastatin Calcium 10 Mg Tablet) 10 mg PO BEDTIME [facility] Last Admin: 10/02/23 20:35 Dose: Not Given Documented By: ROWAN Non-Admin Reason: Patient Refused Clonazepam (Clonazepam 0.5 Mg Tablet) 0.5 mg PO BID [facility] Last Admin: 10/03/23 09:36 Dose: Not Given Documented By: YULIYA Non-Admin Reason: Patient Refused Desmopressin Acetate (Desmopressin Acetate 0.2 Mg Tablet) 0.2 mg PO BEDTIME [facility] Last Admin: 10/02/23 20:35 Dose: Not Given Documented By: ROWAN Non-Admin Reason: Patient Refused Docusate Sodium (Docusate Sodium 100 Mg Capsule) 200 mg PO BID [facility] Last Admin: 10/03/23 09:36 Dose: Not Given Documented By: YULIYA Non-Admin Reason: Patient Refused Famotidine (Famotidine 20 Mg Tablet) 40 mg PO BID [facility] Last Admin: 10/03/23 09:36 Dose: Not Given Documented By: YULIYA Non-Admin Reason: Patient Refused Glucose (Glucose Gel 15 Gm Gel..Gram.) 15 gm PO Q15M PRN; Protocol PRN Reason: per Hypoglycemia Standing Ord. Dextrose (D10) 250 mls @ 750 mls/hr IV Q15M PRN; Protocol PRN Reason: per Hypoglycemia Standing Ord. Insulin Glargine (Insulin Glargine,Hum.Rec.Anlog 100 Unit/Ml 10 Ml Vial) 50 unit SUBCUT DAILY [facility] Last Admin: 10/03/23 09:44 Dose: Not Given Documented By: YULIYA Non-Admin Reason: Patient Refused Insulin Human Lispro (Insulin Lispro 100 Unit/Ml 3 Ml Vial) 0 unit SUBCUT QIDACHS [facility]; Protocol Last Admin: 10/03/23 11:56 Dose: Not Given Documented By: YULIYA Non-Admin Reason: refusing poc Lactulose (Lactulose 20 Gm/30 Ml Solution) 10 gm PO DAILY [facility] Last Admin: 10/03/23 09:44 Dose: Not Given Documented By: YULIYA Non-Admin Reason: Patient Refused Levothyroxine Sodium (Levothyroxine Sodium 50 Mcg Tablet) 50 mcg PO DAILY@0600 [facility] Last Admin: 10/03/23 05:46 Dose: Not Given Documented By: ROWAN Non-Admin Reason: Patient Refused Loratadine (Loratadine 10 Mg Tablet) 10 mg PO DAILY [facility] Last Admin: 10/03/23 09:44 Dose: Not Given Documented By: YULIYA Non-Admin Reason: Patient Refused Magnesium Hydroxide (Milk Of Magnesia 30 Ml Oral.Susp) 30 ml PO DAILY PRN PRN Reason: Constipation Magnesium Oxide (Magnesium Oxide 400 Mg Tablet) 400 mg PO DAILY [facility] Last Admin: 10/03/23 09:44 Dose: Not Given Documented By: YULIYA Non-Admin Reason: Patient Refused Metoprolol Tartrate (Metoprolol Tartrate 50 Mg Tablet) 50 mg PO BID [facility]; Protocol Last Admin: 10/03/23 09:44 Dose: Not Given Documented By: YULIYA Non-Admin Reason: Patient Refused Multivitamins/Vitamin C (Multivitamin Tablet) 1 tab PO DAILY [facility] Last Admin: 10/03/23 09:44 Dose: Not Given Documented By: YULIYA Non-Admin Reason: Patient Refused Omeprazole (Omeprazole 20 Mg Capsule.) 20 mg PO DAILY@0630 [facility] Last Admin: 10/03/23 05:46 Dose: Not Given Documented By: ROWAN Non-Admin Reason: Patient Refused Perphenazine (Perphenazine 8 Mg Tablet) 8 mg PO TID [facility] Last Admin: 10/03/23 09:44 Dose: Not Given Documented By: YULIYA Non-Admin Reason: Patient Refused Sodium Chloride (0.9 % Sodium Chloride Flush 3 Ml Syringe) 3 ml IVFLUSH QSHIFT [facility] Last Admin: 10/03/23 09:36 Dose: Not Given Documented By: YULIYA Non-Admin Reason: no iv access Tizanidine HCl (Tizanidine Hcl 4 Mg Tablet) 4 mg PO BEDTIME [facility] Last Admin: 10/02/23 20:36 Dose: Not Given Documented By: ROWAN Non-Admin Reason: Patient Refused Tramadol HCl (Tramadol Hcl 50 Mg Tablet) 25 mg PO Q6H PRN PRN Reason: Pain, Moderate(Pain Scale 4-6) Trazodone HCl (Trazodone Hcl 100 Mg Tablet) 200 mg PO BEDTIME PRN PRN Reason: Sleep Last Admin: 09/30/23 21:13 Dose: 200 mg Documented By: PIPE Labs 09/30/23 08:54 09/30/23 08:55 Microbiology Microbiology Results: Microbiology 09/30/23 10:17 Blood Culture - Preliminary Blood - Venous No growth after 48 hours. 09/30/23 09:01 Blood Culture - Preliminary Blood - Venous No growth after 48 hours. Assessment and Plan (1) Refractory anemia with excess blasts-2: Status: Acute (2) MDS (myelodysplastic syndrome): Status: Acute (3) Pancytopenia: Status: Acute Plan 58-year-old male with history of insulin-dependent type 2 diabetes, hypothyroidism, hypertension, bipolar disorder, schizophrenia, and myelodysplastic syndrome (previously refused treatment, on monthly CBC monitoring) now agreeable to treatment/transfusion if needed admitted for further management of severe neutropenia r/t MDS and possible pneumonia. # Pancytopenia 2/2 MDS neutropenic precautions refused labs and treatments hematology consulted, patient refuses treatment options and blood transfusions hold aspirin PT evaluation # Suspected Pneumonia CTA chest with possible airways disease/infection empirically with IV vancomycin and cefepime (initiated 09/29), refusing Abx, change to PO Abx also refused and discontinued # insulin-dependent type 2 diabetes with Hyperglycemia better controlled increased basal insulin to 50 units diabetic diet/neutropenic diet Humalog on sliding scale # hypothyroidism levothyroxine # schizophrenia/bipolar disorder home meds. Patient has capacity to make decisions. Psych were ask to evaluate while in ED but never did. not sure about his mental status at that time. # hypertension continue metoprolol # chronic back pain/diffuse pain likely related to MDS continue tizanidine, Tylenol. Patient refuses other medications for pain. DVT prophylaxis- SCDs Code status: He is not interested in treatment and ok with the idea of from his illness. refusing labs, antibiotics and refused any possible treatment or blood transfusion. DARRELL signed as DNR. met with hospice team and started bed search for hospice facility. Pt requires inpt stay overnight for management of severe neutropenia with possible pneumonia requiring abx, neutropenic precautions pending safe discharge plan Quality Stroke Does the patient have a stroke diagnosis?: No VTE Prior VTE?: No VTE Risk Level:: Medical - moderate - high VTE Device Contraindication: Treatment Not Indicated VTE Drug Contraindication: N/A - Med Ordered
[2023-10-03 18:40] VITALS: BP 164/98; PULSE 108; RESP 18; TEMP 36.6; O2SAT 97
--- NOTE | 2023-10-03 19:08 | PC.NURSE ---
Pt stating he has chest pain, feels hot and cold, achy. Pt allowed this RN to check vital signs. VSS. 97% on room air. This RN told Pt we should start IV and possibly give pain meds. Pt refused and said he doesn't want any meds. Dr. Chamberlain notified. No new orders. Pt did drink juice and drank Ensure shakes at lunch and dinner but refused meals. Allowed personal hygiene assistance and clothing change. OOB to chair for short time this afternoon.
--- NOTE | 2023-10-03 20:00 | PC.NURSE ---
Addendum entered by Monet Vazquez RN 10/03/23 23:40: Hospitalist made aware of refusing treatment. Pt reporting severe back pain, medications attempted again, given crushed in applesauce. Metoprolol/Clonazepam/tramadol/zanaflex given per JUL Original Note: This RN assumed care 1900, Pt AOx1-2, laying in bed with no apparent distress. Respirations even and unlabored, lung sounds clear through out. BSx4, no pain with palpation. No IV access, pt refuses. Pt denies pain at this time. Call reid within reach Pt attempted to take meds with jello. Future recommendation to crush pills with jello, he had a hard time swallowing it and threw it on the ground.
[2023-10-03] MEDS: traMADoL HCL 50 MG TABLET 25 MG PO (22:10)
[2023-10-03] MEDS: clonazePAM 0.5 MG TABLET PO (22:11)
[2023-10-03 22:12] VITALS: BP 164/98; PULSE 108
[2023-10-03] MEDS: Metoprolol Tartrate 50 MG TABLET PO (22:12)
[2023-10-03] MEDS: TiZANidine HCL 4 MG TABLET PO (22:12)
--- NOTE | 2023-10-04 13:22 | P.PNIM_ITS ---
Subjective Subjective Date of Service: 10/04/23 Interval History: seen and evaluated No reported bleeding reporting generalized pain but refusing meds most of times not interested in any kind of treatment. No fever or chills Physical Exam 2 Vital Signs: Vital Signs: Last Vital Signs Temp 97.8 F 10/03/23 18:40 Pulse 108 H 10/03/23 22:12 Resp 18 10/03/23 18:40 BP 164/98 H 10/03/23 22:12 Pulse Ox 97 10/03/23 18:40 O2 Del Method Room Air 10/03/23 18:40 O2 Flow Rate 2 09/30/23 12:19 BMI result Body Mass Index 28.0 Const: Other: Constitutional : Awake, pale, not in distress Neck : Normal inspection, Supple Cardiovascular : RRR, no JVP, no lower extremity edema Respiratory : good bilateral air entry, no crackles, wheezes or rhonchi Gastrointestinal: soft, lax, Normal bowel sounds, Non tender Skin : Warm, Dry Neurological : Alert & oriented to self and place, No focal deficit Objective Data Active Medications Acetaminophen (Acetaminophen 325 Mg Tablet) 650 mg PO Q6H PRN PRN Reason: Pain, Mild (Pain Scale 1-3) Last Admin: 09/30/23 21:14 Dose: 650 mg Documented By: PIPE Al Hydroxide/Mg Hydroxide (Magnesium Hydrox/Alum Hydrox 30 Ml Oral.Susp) 30 ml PO Q4H PRN PRN Reason: Heartburn/Nausea Atorvastatin Calcium (Atorvastatin Calcium 10 Mg Tablet) 10 mg PO BEDTIME [facility] Last Admin: 10/03/23 20:35 Dose: Not Given Documented By: ROWAN Non-Admin Reason: Patient Refused Clonazepam (Clonazepam 0.5 Mg Tablet) 0.5 mg PO BID [facility] Last Admin: 10/04/23 09:29 Dose: Not Given Documented By: YULIYA Non-Admin Reason: Patient Refused Desmopressin Acetate (Desmopressin Acetate 0.2 Mg Tablet) 0.2 mg PO BEDTIME [facility] Last Admin: 10/03/23 20:36 Dose: Not Given Documented By: ROWAN Non-Admin Reason: Patient Refused Docusate Sodium (Docusate Sodium 100 Mg Capsule) 200 mg PO BID [facility] Last Admin: 10/04/23 09:29 Dose: Not Given Documented By: YULIYA Non-Admin Reason: Patient Refused Famotidine (Famotidine 20 Mg Tablet) 40 mg PO BID [facility] Last Admin: 10/04/23 09:29 Dose: Not Given Documented By: YULIYA Non-Admin Reason: Patient Refused Glucose (Glucose Gel 15 Gm Gel..Gram.) 15 gm PO Q15M PRN; Protocol PRN Reason: per Hypoglycemia Standing Ord. Dextrose (D10) 250 mls @ 750 mls/hr IV Q15M PRN; Protocol PRN Reason: per Hypoglycemia Standing Ord. Insulin Glargine (Insulin Glargine,Hum.Rec.Anlog 100 Unit/Ml 10 Ml Vial) 50 unit SUBCUT DAILY [facility] Last Admin: 10/04/23 09:29 Dose: Not Given Documented By: YULIYA Non-Admin Reason: Patient Refused Insulin Human Lispro (Insulin Lispro 100 Unit/Ml 3 Ml Vial) 0 unit SUBCUT QIDACHS [facility]; Protocol Last Admin: 10/04/23 12:22 Dose: Not Given Documented By: YULIYA Non-Admin Reason: Patient Refused Lactulose (Lactulose 20 Gm/30 Ml Solution) 10 gm PO DAILY [facility] Last Admin: 10/04/23 09:30 Dose: Not Given Documented By: YULIYA Non-Admin Reason: Patient Refused Levothyroxine Sodium (Levothyroxine Sodium 50 Mcg Tablet) 50 mcg PO DAILY@0600 [facility] Last Admin: 10/04/23 05:30 Dose: Not Given Documented By: ROWAN Non-Admin Reason: Patient Refused Loratadine (Loratadine 10 Mg Tablet) 10 mg PO DAILY [facility] Last Admin: 10/04/23 09:30 Dose: Not Given Documented By: YULIYA Non-Admin Reason: Patient Refused Magnesium Hydroxide (Milk Of Magnesia 30 Ml Oral.Susp) 30 ml PO DAILY PRN PRN Reason: Constipation Magnesium Oxide (Magnesium Oxide 400 Mg Tablet) 400 mg PO DAILY [facility] Last Admin: 10/04/23 09:30 Dose: Not Given Documented By: YULIYA Non-Admin Reason: Patient Refused Metoprolol Tartrate (Metoprolol Tartrate 50 Mg Tablet) 50 mg PO BID [facility]; Protocol Last Admin: 10/04/23 09:30 Dose: Not Given Documented By: YULIYA Non-Admin Reason: Patient Refused Multivitamins/Vitamin C (Multivitamin Tablet) 1 tab PO DAILY [facility] Last Admin: 10/04/23 09:30 Dose: Not Given Documented By: YULIYA Non-Admin Reason: Patient Refused Omeprazole (Omeprazole 20 Mg Capsule.) 20 mg PO DAILY@0630 [facility] Last Admin: 10/04/23 05:30 Dose: Not Given Documented By: ROWAN Non-Admin Reason: Patient Refused Perphenazine (Perphenazine 8 Mg Tablet) 8 mg PO TID [facility] Last Admin: 10/04/23 09:30 Dose: Not Given Documented By: YULIYA Non-Admin Reason: Patient Refused Sodium Chloride (0.9 % Sodium Chloride Flush 3 Ml Syringe) 3 ml IVFLUSH QSHIFT [facility] Last Admin: 10/04/23 09:29 Dose: Not Given Documented By: YULIYA Non-Admin Reason: No Access Tizanidine HCl (Tizanidine Hcl 4 Mg Tablet) 4 mg PO BEDTIME [facility] Last Admin: 10/03/23 22:12 Dose: 4 mg Documented By: ROWAN Tramadol HCl (Tramadol Hcl 50 Mg Tablet) 25 mg PO Q6H PRN PRN Reason: Pain, Moderate(Pain Scale 4-6) Last Admin: 10/03/23 22:10 Dose: 25 mg Documented By: ROWAN Trazodone HCl (Trazodone Hcl 100 Mg Tablet) 200 mg PO BEDTIME PRN PRN Reason: Sleep Last Admin: 09/30/23 21:13 Dose: 200 mg Documented By: PIPE Labs 09/30/23 08:54 09/30/23 08:55 Assessment and Plan (1) Refractory anemia with excess blasts-2: Status: Acute (2) MDS (myelodysplastic syndrome): Status: Acute (3) Pancytopenia: Status: Acute Plan 58-year-old male with history of insulin-dependent type 2 diabetes, hypothyroidism, hypertension, bipolar disorder, schizophrenia, and myelodysplastic syndrome (previously refused treatment, on monthly CBC monitoring) now agreeable to treatment/transfusion if needed admitted for further management of severe neutropenia r/t MDS and possible pneumonia. # Pancytopenia 2/2 MDS on neutropenic precautions. refused labs and treatments hematology evaluated the patient and he refuses treatment options and blood transfusions stating that he understand having a blood disease but doesnt want to go through the side effects of therapy and doesnt want blood transfusions. He is interested in hospice care and wants to be comfortable. pain medicaitons added as needed. hold aspirin. # Suspected Pneumonia CTA chest with possible airways disease/infection. Treated empirically with IV vancomycin and cefepime (initiated 09/29) but he was refusing medications and asked to be taken off antibiotics. # insulin-dependent type 2 diabetes with Hyperglycemia basal insulin 50 units with fair control. diabetic diet/neutropenic diet Humalog on sliding scale # hypothyroidism levothyroxine # schizophrenia/bipolar disorder home meds. Patient has capacity to make decisions. Psych were ask to evaluate while in ED but never did. not sure about his mental status at that time but he it seems that he understands his illness and can reason why is he refusing the treatment options (side effects of chemo and transfusions). # hypertension continue metoprolol # chronic back pain/diffuse pain likely related to MDS. continue tizanidine, Tylenol. Patient refuses other medications for pain. DVT prophylaxis- SCDs Code status: He is not interested in treatment and ok with the idea of from his illness. refusing labs, antibiotics and refused any possible treatment or blood transfusion. DARRELL signed as DNR\DNI. met with hospice team and started bed search for hospice facility. Quality Stroke Does the patient have a stroke diagnosis?: No VTE Prior VTE?: No VTE Risk Level:: Medical - moderate - high VTE Device Contraindication: Treatment Not Indicated VTE Drug Contraindication: N/A - Med Ordered
--- NOTE | 2023-10-04 18:19 | PC.NURSE ---
Pt refusing vitals, POC's, medications, personal care. Slept most of shift. Did awake and report back pain. Did accept hot packs for back but refusing medication. Drank Ensure shakes at each meal but refusing food.
[2023-10-04] MEDS: traMADoL HCL 50 MG TABLET 25 MG PO (18:29)
[2023-10-04] MEDS: clonazePAM 0.5 MG TABLET PO (18:51)
[2023-10-04] MEDS: Acetaminophen 325 MG TABLET 650 MG PO (18:51)
[2023-10-04] MEDS: TiZANidine HCL 4 MG TABLET PO (18:51)
--- NOTE | 2023-10-05 04:48 | PC.NURSE ---
pt is resisted care. refused vitals, pain meds, don't want to answers, but asking for help such as a hot pack, covered blanket, and water. he understands situations and knows what he wants it. but no interested in treatment. very short sentence to talk with mood. will cont. monitor.
[2023-10-05] MEDS: Levothyroxine Sodium 50 MCG TABLET PO (06:10)
[2023-10-05] MEDS: Milk of Magnesia 30 ML ORAL.SUSP PO (11:01)
--- NOTE | 2023-10-05 12:26 | P.DS_ITS ---
DS: Providers Provider Date of Service: 10/05/23 Date of admission: 09/30/23 17:03 Primary care physician: Mando Turpin MD Consults: 09/30/23 16:32 Consult to Psychiatry Stat Consulting Provider: Psych Covering Reason for consultation: capacity 09/30/23 17:04 Consult to Hematology / Oncology Routine Consulting Provider: Radha Fields Reason for consultation: neutropenia/pancytopenia, ?MDS DS: Diagnosis Discharge Diagnosis (1) Refractory anemia with excess blasts-2: Status: Acute (2) Pneumonia: Status: Acute (3) MDS (myelodysplastic syndrome): Status: Acute (4) Pancytopenia: Status: Acute (5) Acidosis, lactic: Status: Acute (6) Weakness: Status: Acute (7) Neutropenia: Status: Acute (8) Thrombocytopenia: Status: Acute DS: Summary Hospital Course Hospital Course: Admission note HPI 58-year-old male with history of insulin-dependent type 2 diabetes, hypothyroidism, hypertension, bipolar disorder, schizophrenia, and myelodysplastic syndrome (previously refused treatment, on monthly CBC monitoring) presents to the ED with generalized body pain and severe pain in the low back, generally feeling unwell and also complaining of nonproductive cough, shortness of breath, chest tightness, and weakness. There is also bilateral maxillary sinus pain. Denies fevers, chills, congestion, sore throat, abdominal pain, nausea, vomiting, diarrhea, urinary symptoms, lightheadedness, headache, syncope. He previously refused all treatments for MDS but states he is agreeable to transfusions if needed. On arrival, reportedly was hypoxic into the 80s but is now saturating 98% on room air. He is afebrile, vitals otherwise within normal limits. He is pancytopenia including significant neutropenia with WBC 0.8, ANC 0.0. H/H 8.0/24.1%, platelets 11. Renal function normal, electrolyte levels normal. Initial lactic acid 2.4, repeat 1.5. Hepatic function largely unremarkable. Troponin below detectable limits. BNP within normal limits. Respiratory panel pending. Head CT negative for any acute intracranial abnormality. CTA of the chest negative for PE which shows innumerable small semi solid pulmonary nodules and increased peribronchial attenuation possibly representing infectious versus inflammatory process/airways disease. In the ED, has been given cefepime, morphine, ondansetron. He will be admitted for further management of severe neutropenia related to myelodysplastic syndrome with possible pneumonia. Of note, was recently admitted to [facility] with homicidal ideation. Was evaluated by Psychiatry and was cleared multiple times so continued to make intermittent SI/HI comments. Was recommended for outpatient follow-up and was started on perphenazine 8 mg twice daily Hospital course # Pancytopenia 2/2 MDS admitted and kept on neutropenic precautions. refused labs and treatments after the first day. hematology evaluated the patient and he refuses treatment options and blood transfusions stating that he understand having a blood disease but doesnt want to go through the side effects of therapy and doesnt want blood transfusions. He is interested in hospice care and wants to be comfortable. pain medications added as needed. Aspirin held. [facility] will be going to [facility]. # Suspected Pneumonia CTA chest with possible airways disease/infection. Treated empirically with IV vancomycin and cefepime (initiated 09/29) but he was refusing medications and asked to be taken off antibiotics so they were discontinued. blood cultures remained negative. # insulin-dependent type 2 diabetes with Hyperglycemia basal insulin 50 units with fair control. diabetic diet/neutropenic diet. used Humalog on sliding scale # Hx schizophrenia/bipolar disorder continued his home medications. Patient has capacity to make decisions as it seems that he understands his illness and can reason why is he refusing the treatment options (side effects of chemo and transfusions). Discharge plan Tramadol PRN for pain Follow with dr Fields as outpatient if you decided to start treatment. The patient will likely need less than 30 days of SNF stay. Time Attestation Discharge Coordination Time (in mins): 43 Quality: Safe Use of Opioids Does Pt have an Active Cancer Diagnosis on the Problem List?: No Quality: Stroke Does the patient have a stroke diagnosis?: No Physical Exam Vital Signs: Vital Signs: Last Vital Signs Temp 97.8 F 10/03/23 18:40 Pulse 108 H 10/03/23 22:12 Resp 18 10/03/23 18:40 BP 164/98 H 10/03/23 22:12 Pulse Ox 97 10/03/23 18:40 O2 Del Method Room Air 10/03/23 18:40 O2 Flow Rate 2 09/30/23 12:19 BMI result Body Mass Index 28.0 Const: Other: Constitutional : Awake, pale, not in distress Neck : Normal inspection, Supple Cardiovascular : RRR, no JVP, no lower extremity edema Respiratory : good bilateral air entry, no crackles, wheezes or rhonchi Gastrointestinal: soft, lax, Normal bowel sounds, Non tender Skin : Warm, Dry Neurological : Alert & oriented to self and place, No focal deficit DS: Data Imaging CT scan - abdomen: Radiologist's impression: ITS Impressions Chest CTA 09/30/23 12:10 IMPRESSION: No evidence of pulmonary embolism. Innumerable small semisolid pulmonary nodules and increased peribronchial attenuation. This probably represents an infectious or inflammatory process/airways disease. VTE: negative. Head CT 09/30/23 15:34 IMPRESSION: No acute intracranial findings. Discharge Plan Discharge Anticipated Discharge Date/Time: 10/05/23 12:19 Patient Disposition: [facility] Discharge Diagnosis: Myelodysplastic syndrome with Pancytopenia Referrals: Mando Turpin MD [Primary Care Provider] - 1 Week Discharge Medications: New tramadol 50 mg Tablet 25 mg PO Q6H PRN (Reason: Pain, Moderate(Pain Scale 4-6)) Qty: 24 0RF Continued (DME) pen needle, diabetic 31 gauge x 5/16 needle See Rx Instructions .ROUTE .MEDSUPPLY Qty: 1200 0RF Rx Instructions: Use 4 times daily (DME) Comfort EZ Pen [place] 33 gauge x 1/4 needle See Rx Instructions .ROUTE .MEDSUPPLY Qty: 100 12RF Rx Instructions: As directed (DME) Grab bar Misc See Rx Instructions .Route Qty: 2 0RF Rx Instructions: As directed metoprolol tartrate 50 mg tablet 50 mg PO BID Qty: 180 1RF famotidine 20 mg tablet 40 mg PO BID 30 Days Qty: 120 5RF desmopressin 0.1 mg tablet 0.2 mg PO BEDTIME Qty: 90 1RF multivitamin Tablet 1 tab PO DAILY Qty: 90 2RF levothyroxine 50 mcg tablet 50 mcg PO QAM Qty: 90 3RF atorvastatin 10 mg tablet 10 mg PO BEDTIME Qty: 90 0RF cholecalciferol (vitamin D3) [Vitamin D3] 25 mcg (1,000 unit) tablet 25 mcg PO DAILY Qty: 30 2RF tizanidine 4 mg tablet 4 mg PO BEDTIME Qty: 30 0RF docusate sodium 100 mg capsule 200 mg PO BID 30 Days Qty: 120 0RF insulin glargine [Lantus Solostar U-100 Insulin] 100 unit/mL (3 mL) insulin pen 48 unit subcut DAILY Qty: 15 5RF magnesium oxide 400 mg magnesium tablet 400 mg PO DAILY 30 Days Qty: 30 0RF perphenazine 4 mg tablet 4 mg PO TID perphenazine 8 mg tablet 8 mg PO TID trazodone 100 mg tablet 200 mg PO BEDTIME PRN (Reason: Sleep) lactulose 10 gram/15 mL solution 15 ml PO DAILY Rx Instructions: Take only for severe constipation that is not relieved with routine stool softeners Ozempic 0.25 mg or 0.5 mg (2 mg/3 mL) pen injector 0.5 mg subcut TU (DME) QUAD CANE See Rx Instructions .Route .MEDSUPPLY Qty: 1 0RF Rx Instructions: As directed acetaminophen [Tylenol Extra Strength] 500 mg tablet 500 mg PO Q6H PRN (Reason: fever or pain) 30 Days Qty: 120 3RF Rx Instructions: maximum of 4 tablets per day (DME) CANE (regular) See Rx Instructions .Route .MEDSUPPLY Qty: 1 0RF Rx Instructions: As directed pantoprazole 40 mg tablet,delayed release (DR/EC) 40 mg PO DAILY 30 Days Qty: 30 5RF (DME) blood sugar diagnostic Strip See Rx Instructions Not Applicable .MEDSUPPLY Qty: 10 Rx Instructions: As directed (DME) lancets 28 gauge misc See Rx Instructions topical .MEDSUPPLY Qty: 100 Rx Instructions: As directed clonazepam [Klonopin] 0.5 mg tablet 0.5 mg PO BID Discontinued ibuprofen 600 mg tablet 600 mg PO TID PRN (Reason: for pain) Qty: 90 0RF aspirin 81 mg tablet,chewable 81 mg PO QAM Discharge Orders: Discharge Order (Routine); Ordered 10/05/23 Ordered By: Shahrzad Chamberlain Diet: Advance to usual diet Activity on Discharge: As tolerated Stand Alone Forms: Patient Portal Discharge page Print Language: Swazi Care Plan Goals: You were admitted for evaluation of abnormal blood work with low blood values and platelets with evidence of pneumonia. you were treated with IV antibiotics and evaluated by oncologist who suggest treatment but you refused and preferred a comfortable approach to your problem. Tramadol PRN for pain Follow with dr Fields as outpatient if you decided to start treatment. Health Concerns: Read below Plan of Treatment: Read below Assessment: Read below
--- NOTE | 2023-10-05 12:40 | MHC.CM.PN ---
DP: PT HAS BEEN MEDICALLY CLEARED FOR DC TO [facility] FOR LTC/POSSIBLE HOSPICE CARE. RN UPDATED. HCP ABBY LYNN UPDATED. CENTER AWARE. BLS TRANSPORT BOOKED FOR 3 PM [facility]IA [facility].
[2023-10-05 13:05] VITALS: BP 145/69; PULSE 115; RESP 16; TEMP 36; O2SAT 99
[2023-10-05 13:06] LABS: Glucose, Whole Blood 482 mg/dL (60-115)
[2023-10-05] MEDS: traMADoL HCL 50 MG TABLET 25 MG PO (13:08)
[2023-10-05] MEDS: Magnesium Hydrox/Alum Hydrox 30 ML ORAL.SUSP PO (13:08)
--- NOTE | 2023-10-05 13:42 | PC.NURSE ---
It was reported by [employer] that patient was being rude to staff and punched the side rail to the bed. Security called to come speak with this patient.
== END 2023-10-05 15:57 | disposition skilled nursing facility (03) | DRG 194 ==
LOC: HO.ED 16:12 → HO.EDOVER 17:14 → HO.S3 19:33
PROVIDERS: Emergency Medicine; Admitting Provider Physician Assistant; Emergency Provider Emergency Medicine; PCP Internal Medicine; Visit Provider Student in an Organized Health Care Education/Training Program
DX: J18.9 Pneumonia, unspecified organism (principal); D61.818 Other pancytopenia; F17.290 Nicotine dependence, other tobacco product, uncomplicated; N40.0 Benign prostatic hyperplasia without lower urinary tract symptoms; F25.9 Schizoaffective disorder, unspecified; E03.9 Hypothyroidism, unspecified; E11.65 Type 2 diabetes mellitus with hyperglycemia; I10 Essential (primary) hypertension; D46.9 Myelodysplastic syndrome, unspecified; Z20.822 Contact with and (suspected) exposure to COVID-19; Z71.6 Tobacco abuse counseling; Z79.4 Long term (current) use of insulin; Z79.890 Hormone replacement therapy; Z79.899 Other long term (current) drug therapy
CPT/HCPCS: 0241U; 36415; 70450; 71275; 80048; 80076; 82947; 83605; 83690; 83735; 83880; 84484; 85025; 85379; 86850; 86900; 86901; 87040; 87633; 93005; 99285; J0692; J1200; J2270; J2405; J2919; P9073; Q9967

== ENCOUNTER → 2023-09-30 08:35 | Outpatient (BNV) | payer OTHER, SELFPAY | PROVIDERS: Emergency Provider Emergency Medicine; PCP Internal Medicine; Visit Provider Internal Medicine | DX: R00.0 Tachycardia, unspecified (principal); I44.0 Atrioventricular block, first degree | CPT/HCPCS: 93010 ==

== ENCOUNTER → 2023-09-30 17:03 | Outpatient (BNV) | payer MEDICARE, MEDICAID, SELFPAY | PROVIDERS: Admitting Provider Physician Assistant; Emergency Provider Emergency Medicine; PCP Internal Medicine; Visit Provider Internal Medicine Medical Oncology | DX: D46.22 Refractory anemia with excess of blasts 2 (principal); D61.818 Other pancytopenia | CPT/HCPCS: 99222 ==

== ENCOUNTER → 2023-09-30 17:03 | Outpatient (BNV) | payer MEDICARE, OTHER, MEDICAID, SELFPAY | PROVIDERS: Admitting Provider Physician Assistant; Emergency Provider Emergency Medicine; PCP Internal Medicine; Visit Provider Internal Medicine | DX: D46.22 Refractory anemia with excess of blasts 2 (principal); J18.9 Pneumonia, unspecified organism; D46.9 Myelodysplastic syndrome, unspecified; D61.818 Other pancytopenia | CPT/HCPCS: 99223; 99232; 99233; 99239; 99499 ==

== ENCOUNTER 2023-10-20 22:06 | Emergency (ER) | payer OTHER, SELFPAY ==
--- NOTE | 2023-10-20 | ECG_ITS ---
Test Reason : HYPERGLYCEMIA Blood Pressure : / mmHG Vent. Rate : 058 BPM Atrial Rate : 058 BPM P-R Int : 200 ms QRS Dur : 084 ms QT Int : 426 ms P-R-T Axes : 068 047 044 degrees QTc Int : 418 ms Sinus bradycardia Otherwise normal ECG When compared with ECG of 30-SEP-2023 08:35, Vent. rate has decreased BY 47 BPM Referred By: Generic ED Physician Electronically Signed By:Fredo Lares
[2023-10-20 22:13] VITALS: BP 101/58; BP 107/56; PULSE 60; RESP 18; TEMP 36.8; O2SAT 97; O2SAT 99; BMI 30.8
[2023-10-20 22:17] LABS: Glucose, Whole Blood 303 mg/dL (60-115)
[2023-10-20 23:14] LABS: Alanine Aminotransferase 24 U/L (0-40); Albumin Level 2.3 g/dL (3.5-5.0); Alkaline Phosphatase 64 U/L (39-117); Anion Gap 13 (12-20); Aspartate Amino Transferase 25 U/L (5-37); Bilirubin Total 0.6 mg/dL (0.0-1.0); Blood Urea Nitrogen 13 mg/dL (9-16); Calcium 7.9 mg/dL (8.4-10.2); Carbon Dioxide 21 mmol/L (22-29); Chloride 105 mmol/L (96-108); Estimated Glomerular Filt Rate > 60; Glucose Random 325 mg/dL (60-115); Lipase 11 U/L (8-78); Potassium 4.5 mmol/L (3.3-5.1); Sodium 134 mmol/L (135-145); Total Protein 5.1 g/dL (6.5-8.0)
[2023-10-20 23:25] LABS: MANUAL DIFF FLAG SCAN; Mean Corpuscular Volume 89.6 fL (80.0-98.0); SCAN SMEAR FLAG 1
[2023-10-20 23:27] LABS: Basophils Percent Auto 0.2 % (0-2); Lymphocytes Absolute Auto 1.6 X10*3/uL (1.2-4.9); Lymphocytes Percent Auto 28.5 % (20-40); Mean Corpuscular HGB Conc 32.6 g/dl (31.0-36.0); Mean Corpuscular Hemoglobin 29.2 pg (27.0-33.0); Monocytes Absolute Auto 3.9 X10*3/uL (0.1-1.2); Monocytes Percent Auto 69.6 % (2-11); Neutrophils Absolute Auto 0.1 x10*3/uL (2.0-8.3); Neutrophils Percent Auto 1.7 % (45-73); Red Blood Count 2.02 X10*6/uL (4.60-5.80); Red Cell Distribution Width 23.6 % (11.0-16.0); White Blood Count 5.6 X10*3/uL (4.8-10.8)
[2023-10-20 23:37] LABS: PLT ABN DIST 1
[2023-10-20 23:39] LABS: Hematocrit 18.1 % (42.0-52.0); Hemoglobin 5.9 g/dl (14.0-18.0)
[2023-10-20 23:40] LABS: Platelet Count 4 X10*3/uL (160-400)
[2023-10-20 23:49] LABS: SLIDE REVIEW VERIFIED
[2023-10-21 00:18] VITALS: BP 104/56; PULSE 57; RESP 16; O2SAT 96
--- NOTE | 2023-10-21 00:19 | MHC.EDTECH ---
Pt refused blood draw as he does not want transfusion. RN and provider aware.
--- NOTE | 2023-10-21 00:53 | ED_ITS ---
HPI - General Adult General Chief complaint: Recheck/Abnormal Lab/Rx Stated complaint: HYPERGLUCEMIA*BGL 560, HYPOTENSIVE*BP 88/52 Time Seen by Provider: 10/20/23 23:40 Source: patient and EMS Mode of arrival: EMS Limitations: no limitations History of Present Illness ED Provider: Dr. Soni Meier HPI narrative: Patient comes to the emergency room via ambulance from a residential. Patient states that last night he was discharged from [facility], patient was admitted from October 14 through the . Patient states that he was in the residential for a few hours and then he was feeling very weak. Patient states that he has a bit of knee pain on the left after falling, patient was able to get up and walk. According to the patient's residential staff, they are not acquainted with the patient's since he has been there falling a few hours. Unclear what his strength baseline is. Related Data Home Medications ?Medication ?Instructions ?Recorded ?Confirmed blood sugar diagnostic #10 ea 03/15/20 09/04/23 lancets 28 gauge #100 ea 03/15/20 09/04/23 perphenazine 8 mg tablet 8 mg PO TID 02/26/22 09/30/23 clonazepam 0.5 mg tablet (Klonopin) 0.5 mg PO BID 04/06/23 09/30/23 perphenazine 4 mg tablet 4 mg PO TID 04/06/23 09/30/23 lactulose 10 gram/15 mL oral 15 ml PO DAILY 09/30/23 09/30/23 solution semaglutide 0.25 mg or 0.5 mg (2 0.5 mg subcut TU 09/30/23 09/30/23 mg/3 mL) subcutaneous pen injector (Ozempic) trazodone 100 mg tablet 200 mg PO BEDTIME PRN Sleep 09/30/23 09/30/23 Previous Rx's ?Medication ?Instructions ?Recorded pen needle, diabetic 31 gauge x #1,200 ea 03/12/2109/16 QUAD CANE #1 ea 07/31/21 acetaminophen 500 mg tablet 500 mg PO Q6H PRN fever or pain 01/01/23 (Tylenol Extra Strength) days #120 tabs pen needle, diabetic 33 gauge x #100 ea 02/02/2305/07 (Comfort EZ Pen [place]) Grab bar #2 ea 02/03/23 CANE (regular) #1 ea 02/11/23 metoprolol tartrate 50 mg tablet 50 mg PO BID #180 tabs 05/12/23 famotidine 20 mg tablet 40 mg (2 x 20 mg) PO BID 30 days 05/18/23 #120 tabs desmopressin 0.1 mg tablet 0.2 mg (2 x 0.1 mg) PO BEDTIME #90 07/01/23 tabs multivitamin 1 tab PO DAILY #90 tabs 07/07/23 pantoprazole 40 mg tablet,delayed 40 mg PO DAILY 30 days #30 tabs 07/13/23 release levothyroxine 50 mcg tablet 50 mcg PO QAM #90 tabs 07/14/23 atorvastatin 10 mg tablet 10 mg PO BEDTIME #90 tabs 07/15/23 cholecalciferol (vitamin D3) 25 25 mcg PO DAILY #30 tabs 09/07/23 mcg (1,000 unit) tablet (Vitamin D3) tizanidine 4 mg tablet 4 mg PO BEDTIME for low back pain 09/07/23 #30 tabs docusate sodium 100 mg capsule 200 mg (2 x 100 mg) PO BID 30 days 09/12/23 #120 caps insulin glargine 100 unit/mL (3 48 unit (0.48 mL) subcut DAILY #15 09/16/23 mL) subcutaneous pen (Lantus mL Solostar U-100 Insulin) magnesium oxide 400 mg PO DAILY 30 days #30 tabs 09/19/23 tramadol 50 mg tablet 25 mg (1/2 x 50 mg) PO Q6H PRN 10/05/23 Pain, Moderate(Pain Scale 4-6) #24 tabs Allergies Allergy/AdvReac Type Severity Reaction Status Date / Time clozapine [From Clozaril] Allergy Mild ringing in Verified 10/20/23 22:16 ears, pain, leukopenia trifluoperazine Allergy Tongue Verified 10/20/23 22:16 [From Stelazine] Swelling Review of Systems 2 Review of Systems: Constitutional : No Weight loss, No Fever, No Chills, No Night Sweats, complaining of fatigue, generalized malaise ENT/Mouth : No Hearing loss, No Ear Pain, No Nasal Congestion, No Sinus Pain, No Hoarseness, No sore throat, No Rhinorrhea, No Swallowing Difficulty Eyes: No Eye Pain, No Swelling, No Redness, No Foreign Body, No Discharge, No Vision Changes Cardiovascular : No Chest Pain, No SOB, No Dyspnea on Exertion, No Orthopnea, No Edema, No Palpitations Respiratory : No Cough, No Sputum, No Wheezing, No Smoke Exposure, No Dyspnea Gastrointestinal : No Nausea, No Vomiting, No Diarrhea, No Constipation, No abdominal Pain, No Hematochezia, No Melena Genitourinary : no irregular bleeding, No Dysuria, No Urinary Frequency, No Hematuria, No Urinary Incontinence, No Urgency, No Flank Pain, No Urinary Flow Changes, No Hesitancy Musculoskeletal : Complaining of left knee swelling after a fall, No Myalgias, No Joint Swelling Skin : No Skin Lesions, No rash Neuro : No Weakness, No Numbness, No Paresthesias, No Loss of Consciousness, No Dizziness, No Headache Psych : No Anxiety/Panic, No Depression, No SI/HI/AH/VH, No Social Issues, Heme/Lymph: No Bruising, No Bleeding,No Lymphadenopathy Endocrine : No Polyuria, No Polydipsia, No Temperature Intolerance [facility] Past Medical History Medical History Refractory anemia with excess blasts-2 Pneumonia MDS (myelodysplastic syndrome) Pancytopenia Acidosis, lactic Weakness Neutropenia Thrombocytopenia Chest pain Myelodysplastic syndrome with excess blasts Facet arthritis of lumbar region Thrombocytopenia Hypomagnesemia Obesity (BMI 30-39.9) On beta evaristo at home Lung nodule Screening for STD (sexually transmitted disease) Obesity (BMI 30-39.9) Smoker Schizophrenia Nocturnal enuresis Anxiety Midline low back pain Acquired hypothyroidism GERD without esophagitis Constipation Pure hypercholesterolemia Benign essential hypertension Diabetes mellitus Obstructive sleep apnea Dyspnea Obesity (BMI 35.0-39.9 without comorbidity) Nicotine dependence, cigarettes, uncomplicated Schizoaffective disorder Insulin dependent diabetes mellitus Hypothyroidism Hypertension, essential Hyperlipidemia Surgical History H/O colonoscopy (~10/12/20) Hx of facial fracture repair History of left inguinal hernia repair Family History Family History Father CVD (cardiovascular disease) Mother CVD (cardiovascular disease) Diabetes Sister Colon polyps Social History Social History Household Members: Unknown / Unable to assess Household Members Other:: lives in a supported apartment problem Housing: Unknown / Unable to assess Housing Other:: lives in a supported apartment problem Do you presently have visiting nurse or other home services: No Alcohol intake: former Comment: refusing alarms and red socks Patient Tobacco Use Status: Never used Tobacco Tobacco use type: Cigarette and Cigar Cigarette Packs Per Day: 0.75 Years Smoked: 30 Smoked in Last 30 Days: No e-Cigarette/Vaping Use: Never Used Second Hand Smoke Exposure: No Use of substances other than those prescribed or required for medical reasons: No Advance Directives: No Advance Directives Information Provided: No service: No Current occupational status: disabled Sexual orientation: Straight/Heterosexual Cognitive needs: No Hearing needs: No Vision needs: No Physical Exam ED Vital Signs: Vital Signs - 24 hr 10/20/23 22:13 10/21/23 00:18 10/21/23 02:31 Temperature 98.2 F Pulse Rate 60 57 53 Respiratory Rate 18 16 16 Blood Pressure 101/58 L 104/56 L 100/47 L Pulse Oximetry 97 96 97 Oxygen Delivery Method Room Air Room Air Room Air 10/21/23 04:01 Temperature Pulse Rate 65 Respiratory Rate 16 Blood Pressure 96/53 L Pulse Oximetry 96 Oxygen Delivery Method Room Air BMI result Body Mass Index 30.8 Const Other: Appearance: Alert. Oriented X3. No acute distress. Seems weak Eyes: Pupils equal, round and reactive to light. ENT: Pharynx normal. Neck: Normal inspection. Neck supple. No lymph nodes noted. No crepitus CVS: Normal heart rate and rhythm. Pulses normal. Normal S1 and S2 Respiratory: No respiratory distress. Breath sounds normal. No Wheezing. No rales Abdomen: Soft and nontender. No rigidity. No distention. Skin: Skin warm and dry. Normal skin color. Normal skin turgor. Extremities: No lower extremity edema. No Lacerations. No Rash, mildly swollen knee on the left Neuro: Oriented X 3. No motor deficit. No sensory deficit. Moving all extremities. No slurred speech. CN 2 through 12 grossly intact Psych: calm, cooperative, normal affect Course Course Course Narrative: -patient states that he is aware that his platelets and hemoglobin levels are low. Patient has been told multiple times that he needs a blood transfusion but patient declines due to latter-day beliefs, although he has not Jehovah Witness, states that he does not want anyone blood in his body. -we obtained records from [facility], patient was discharged on 10/20/2023, same story as here, patient declined any further intervention and requested hospice. Seems that the hospice progress has not started. Medical Decision Making Medical Decision Making [facility] Narrative: -my interpretation of labs: Patient has pancytopenia, markedly anemic with a hemoglobin of 5.9, hematocrit 18.1, also, platelets are 4. -also, I discussed with the patient that his albumin is low, blood pressure is on the lower side, we would probably need albumin as well. Patient declined. Patient states that he does not want any fluids either. -patient states that he only wants hospice treatment. Seems that at [facility] the referral was started but unclear where the processes at this time. -overall, at this time, patient declining any further workup or intervention. Patient states that he wants to be comfortable, be in hospice care. -at this time, we will honor patient's wishes, we will not do any further interventions or treatment. -patient's seems to be alert and oriented x3. However, patient has a significant history of psychiatric disorder. We will go ahead and order a psychiatry consult to confirm capacity -case management consult pending -at 05:30 we received a phone call from the patient's hospice worker. Seems that patient is already on hospice. Patient is awake, alert, ambulatory. Hospice is already in place, they will be picking him up and taking him back to the home group where he came from under hospice care. Differential Diagnosis Differential Diagnoses: The differential diagnosis associated with the presentation includes (Hughes dysplastic syndrome, AML, ACL) Admission/Observation Consideration of admission/observation: Escalation of care including admission/observation considered (Patient declined any further care, care team consult and psychiatry consult pending) Lab Data [facility] Lab Attestation statement: I reviewed the patient's lab results. 10/20/23 23:14 10/20/23 22:46 Labs: Lab Results 10/20/23 10/20/23 10/20/23 Range/Units 22:14 22:46 23:14 WBC 5.6 (4.8-10.8) X10*3/uL RBC 2.02 L D (4.60-5.80) X10*6/uL Hgb 5.9 L* D (14.0-18.0) g/dl Hct 18.1 L* D (42.0-52.0) % MCV 89.6 (80.0-98.0) fL MCH 29.2 (27.0-33.0) pg MCHC 32.6 (31.0-36.0) g/dl RDW 23.6 H (11.0-16.0) % Plt Count 4 L* D (160-400) X10*3/uL MPV Not Reportable Immature Gran % (Auto) 0.0 (0.0-0.4) % Neut % (Auto) 1.7 L (45-73) % Lymph % (Auto) 28.5 (20-40) % Faulk % (Auto) 69.6 H (2-11) % Eos % (Auto) 0.0 (0-4) % Baso % (Auto) 0.2 (0-2) % Lymph # (Auto) 1.6 (1.2-4.9) X10*3/uL Faulk # (Auto) 3.9 H (0.1-1.2) X10*3/uL Eos # (Auto) 0.0 (0.0-0.4) X10*3/uL Baso # (Auto) 0.0 (0.0-0.2) X10*3/uL Abs Immat Gran (auto) 0.00 (0.00-0.03) X10*3/uL Absolute Neuts (auto) 0.1 L (2.0-8.3) x10*3/uL Absolute Nucleated RBC 0.110 H (0.0-0.012) X10*3/uL Nucleated RBC % (auto) 2.0 H (0.0-0.2) /100WBC Smear Tech's Comments VERIFIED Sodium 134 L (135-145) mmol/L Potassium 4.5 (3.3-5.1) mmol/L Chloride 105 (96-108) mmol/L Carbon Dioxide 21 L (22-29) mmol/L Anion Gap 13 (12-20) BUN 13 (9-16) mg/dL Creatinine 0.71 (0.5-1.4) mg/dL Estim Creat Clear Calc 131.0 Estimated GFR > 60 POC Glucose 303 H (60-115) mg/dL Random Glucose 325 H (60-115) mg/dL Calcium 7.9 L D (8.4-10.2) mg/dL Total Bilirubin 0.6 (0.0-1.0) mg/dL AST 25 (5-37) U/L ALT 24 (0-40) U/L Alkaline Phosphatase 64 (39-117) U/L Total Protein 5.1 L (6.5-8.0) g/dL Albumin 2.3 L (3.5-5.0) g/dL Lipase 11 (8-78) U/L Discharge Plan Discharge Clinical Impression: Pancytopenia Prescriptions: No Action (DME) pen needle, diabetic 31 gauge x 5/16 needle See Rx Instructions .ROUTE .MEDSUPPLY Qty: 1200 0RF Rx Instructions: Use 4 times daily (DME) Comfort EZ Pen [place] 33 gauge x 1/4 needle See Rx Instructions .ROUTE .MEDSUPPLY Qty: 100 12RF Rx Instructions: As directed (DME) Que briggs [facility] [place] See Rx Instructions .Route Qty: 2 0RF Rx Instructions: As directed metoprolol tartrate 50 mg tablet 50 mg PO BID Qty: 180 1RF famotidine 20 mg tablet 40 mg PO BID 30 Days Qty: 120 5RF desmopressin 0.1 mg tablet 0.2 mg PO BEDTIME Qty: 90 1RF multivitamin Tablet 1 tab PO DAILY Qty: 90 2RF levothyroxine 50 mcg tablet 50 mcg PO QAM Qty: 90 3RF atorvastatin 10 mg tablet 10 mg PO BEDTIME Qty: 90 0RF cholecalciferol (vitamin D3) [Vitamin D3] 25 mcg (1,000 unit) tablet 25 mcg PO DAILY Qty: 30 2RF tizanidine 4 mg tablet 4 mg PO BEDTIME Qty: 30 0RF docusate sodium 100 mg capsule 200 mg PO BID 30 Days Qty: 120 0RF insulin glargine [Lantus Solostar U-100 Insulin] 100 unit/mL (3 mL) insulin pen 48 unit subcut DAILY Qty: 15 5RF magnesium oxide 400 mg magnesium tablet 400 mg PO DAILY 30 Days Qty: 30 0RF perphenazine 4 mg tablet 4 mg PO TID perphenazine 8 mg tablet 8 mg PO TID trazodone 100 mg tablet 200 mg PO BEDTIME PRN (Reason: Sleep) lactulose 10 gram/15 mL solution 15 ml PO DAILY Rx Instructions: Take only for severe constipation that is not relieved with routine stool softeners Ozempic 0.25 mg or 0.5 mg (2 mg/3 mL) pen injector 0.5 mg subcut TU tramadol 50 mg Tablet 25 mg PO Q6H PRN (Reason: Pain, Moderate(Pain Scale 4-6)) Qty: 24 0RF (DME) QUAD CANE See Rx Instructions .Route .MEDSUPPLY Qty: 1 0RF Rx Instructions: As directed acetaminophen [Tylenol Extra Strength] 500 mg tablet 500 mg PO Q6H PRN (Reason: fever or pain) 30 Days Qty: 120 3RF Rx Instructions: maximum of 4 tablets per day (DME) CANE (regular) See Rx Instructions .Route .MEDSUPPLY Qty: 1 0RF Rx Instructions: As directed pantoprazole 40 mg tablet,delayed release (DR/EC) 40 mg PO DAILY 30 Days Qty: 30 5RF (DME) blood sugar diagnostic Strip See Rx Instructions Not Applicable .MEDSUPPLY Qty: 10 Rx Instructions: As directed (DME) lancets 28 gauge misc See Rx Instructions topical .MEDSUPPLY Qty: 100 Rx Instructions: As directed clonazepam [Klonopin] 0.5 mg tablet 0.5 mg PO BID Print Language: Albanian
[2023-10-21 02:31] VITALS: BP 100/47; PULSE 53; RESP 16; O2SAT 97
--- NOTE | 2023-10-21 03:05 | PC.NURSE ---
1 assist ambulating to bathroom. gait slow but even and steady
[2023-10-21 04:01] VITALS: BP 96/53; PULSE 65; RESP 16; O2SAT 96
--- NOTE | 2023-10-21 05:30 | PC.NURSE ---
this RN spoke with pt's hospice worker. she is requesting he be discharged so that he can start hospice at the shelter today as planned. aware that he is refusing all care. MD Meier agreed with plan. Sindy Elizabeth will be here at 8am to p/u pt.
[2023-10-21 06:09] VITALS: BP 113/60; PULSE 75; RESP 16; TEMP 36.9; O2SAT 97
--- NOTE | 2023-10-21 07:08 | PC.NURSE ---
Resumed care at 0700, pt resting in bed at this time. Aware of plan for d/c to senior living at 8am. Pt currently a/ox4, conversing with this creative writer, call franklin within reach.
[2023-10-21 08:38] VITALS: BP 0/0; PULSE 0; RESP 0; TEMP -17.7; TEMP 0; O2SAT 0
--- NOTE | 2023-10-21 15:00 | P.EN_ITS ---
Event Note Date of Service: 10/21/23 Event Note: Psychiatry was asked to complete a capacity assessment on Mr. White. He has hx of schizoaffective disorder, myelodysplastic Syndrome (MDS) for which he has declined treatment including chemotherapy and blood transfusions with or without bone marrow transplant. He was discharged from [facility] on 10/20/23- per ED provider documentation he also declined further interventions and requested hospice. During this ED visit, pt's hemoglobin 5.9, Hct 18.1, Plt 4-- pt again refused transfusions per ED documentation stating that he did not want anyone's blood inside him. He has been medically admitted here at [facility] [place] [facility] for tx of MDS 09/2023, and appeared to be inconsistent with interventions that he would allow including at times accepting medications, other declining labs others accepting transfusion. When this senior medical writer attempted to meet with pt in the ED, pt had been discharged this morning at around 8:30am. Of note, Pt DOES HAVE A GUARDIANSHIP AND A HORTON SINCE 2016. His court appointed guardian is Markus Shea phone number [phone]. This senior medical writer left VM but no return call. This senior medical writer verified with hospital insurance defense attorney that guardianship and graham order are still active, which they are. This senior medical writer communicated dorinda Casey, who is staff member from [facility] (pt's prison) who reports they have never been able to get in contact with his guardian as far as she is aware. She does know that there is a Graham's order but was not aware that there is also a guardian. He did complete while medically admitted here at [facility] a HCP. Our insurance defense attorney to notify [facility] of lack of communication with court appointed guardian. Time Spent With Patient Time: Total time managing care of this patient today ____ minutes.
--- NOTE | 2023-10-21 15:00 | PM.EVENT ---
Event Note Date of Service: 10/21/23 Event Note: Psychiatry was asked to complete a capacity assessment on Mr. White. He has hx of schizoaffective disorder, myelodysplastic Syndrome (MDS) for which he has declined treatment including chemotherapy and blood transfusions with or without bone marrow transplant. He was discharged from [facility] on 10/20/23- per ED provider documentation he also declined further interventions and requested hospice. During this ED visit, pt's hemoglobin 5.9, Hct 18.1, Plt 4-- pt again refused transfusions per ED documentation stating that he did not want anyone's blood inside him. He has been medically admitted here at [facility] for tx of MDS 09/2023, and appeared to be inconsistent with interventions that he would allow including at times accepting medications, other declining labs others accepting transfusion. When this production underwriter attempted to meet with pt in the ED, pt had been discharged this morning at around 8:30am. Of note, Pt DOES HAVE A GUARDIANSHIP AND A HORTON SINCE 2016. His court appointed guardian is Markus Shea phone number [phone]. This production underwriter left VM but no return call. This production underwriter verified with hospital deputy attorney general that guardianship and graham order are still active, which they are. This production underwriter communicated dorinda Casey, who is staff member from [facility] (pt's custodial) who reports they have never been able to get in contact with his guardian as far as she is aware. She does know that there is a Graham's order but was not aware that there is also a guardian. He did complete while medically admitted here at [facility] a HCP. Our deputy attorney general to notify [facility] of lack of communication with court appointed guardian. Time Spent With Patient Time: Total time managing care of this patient today ____ minutes.
== END 2023-10-21 08:40 | disposition home or self-care (01) ==
PROVIDERS: Emergency Provider Emergency Medicine
DX: D61.818 Other pancytopenia (principal); E11.65 Type 2 diabetes mellitus with hyperglycemia; R53.1 Weakness; R53.81 Other malaise; M25.562 Pain in left knee; D64.9 Anemia, unspecified; I10 Essential (primary) hypertension; E78.00 Pure hypercholesterolemia, unspecified; D46.20 Refractory anemia with excess of blasts, unspecified; C64.1 Malignant neoplasm of right kidney, except renal pelvis; F25.9 Schizoaffective disorder, unspecified; F17.210 Nicotine dependence, cigarettes, uncomplicated; Z79.02 Long term (current) use of antithrombotics/antiplatelets; Z79.4 Long term (current) use of insulin; Z79.899 Other long term (current) drug therapy
CPT/HCPCS: 36415; 80053; 82947; 83690; 85025; 93005; 99285

== ENCOUNTER → 2023-10-20 22:22 | Outpatient (BNV) | payer OTHER, MEDICAID, SELFPAY | PROVIDERS: Emergency Provider Emergency Medicine; Visit Provider Internal Medicine Cardiovascular Disease | DX: R00.1 Bradycardia, unspecified (principal) | CPT/HCPCS: 93010 ==